=== PATIENT | male | born 1955 | race American Indian/Alaskan Native ===

== ENCOUNTER 2016-08-26 09:13 | Emergency (ER) | payer BC, OTHER ==
--- NOTE | 2016-08-26 09:44 | EDM.PDOC ---
ED HISTORY OF PRESENT ILLNESS - General Chief Complaint: Chest Pain Stated Complaint: IN BY [facility] Time Seen by Provider: 08/26/16 09:25 Source of Information: Reports: Patient History Limitations: Reports: No limitations - History of Present Illness INITIAL COMMENTS - FREE TEXT/NARRATIVE: This 61 yo male patient reports to the ED with chest pain, shortness of breath and upper epigastric pain. The patient reports his symptoms started yesterday evening and have been getting worse since last night. The patient reports his pain is in the lower chest, upper abdomen with a "stabbing" pain radiating to his back. The patient reports he took a Pride while at home and was given Aspirin and Nitro by EMS. The patient reports his symptoms are similar to his symptoms 3 months ago. Since his visit in May, the patient has followed up with a surgeon (the surgeon reported that his pain was not his gallbladder) and with a hand sample maker (the hand sample maker reported that there was nothing wrong with his heart). The patient has been taking his medications as prescribed. The patient reports his abdominal pain started after eating fried chicken on Friday. Symptom Onset Date: 08/24/16 Timing/Duration: Reports: Constant, Getting worse Severity: moderate Location, General: Reports: chest, abdomen Quality: Reports: Ache, Dull Improves with: Reports: None Worsens with: Reports: None Treatments PORTABLE TRACKMAN: Reports: Other medication(s) - Related Data Allergies/ADRs: Allergies Allergy/AdvReac Type Severity Reaction Status Date / Time No Known Allergies Allergy Verified 04/08/16 21:24 Home Meds: Home Meds Docusate Sodium 100 mg PO BID PRN 12/20/13 [History] Hydrocodone/Acetaminophen [Hydrocodone-Acetaminophen 5-325] 1 tab PO TID PRN 03/25 [History] Insulin Aspart [Novolog Flexpen] 15 units SQ TIDAC 12/20/13 [History] Insulin Detemir [Levemir Flexpen] 50 units SQ QAM 12/20/13 [History] Insulin Detemir [Levemir Flexpen] 50 unit SQ BEDTIME 01/19/14 [History] Lisinopril 10 mg PO DAILY 01/19/14 [History] Simvastatin [Zocor] 20 mg PO BEDTIME 01/19/14 [History] Aspirin [Children's Aspirin] 81 mg PO DAILY 05/15/16 [History] Clopidogrel Bisulfate [Plavix] 75 mg PO DAILY 05/15/16 [History] Ergocalciferol (Vitamin D2) [Vitamin D2] 50,000 unit PO .SAT 05/15/16 [History] Ezetimibe [Zetia] 10 mg PO DAILY 05/15/16 [History] Fenofibric Acid (Choline) [Fenofibric Acid] 45 mg PO DAILY 05/15/16 [History] Furosemide 40 mg PO DAILY 05/15/16 [History] Gabapentin [Neurontin] 1,200 mg PO BEDTIME 05/15/16 [History] Gabapentin [Neurontin] 600 mg PO DAILY 05/15/16 [History] Hydrochlorothiazide 25 mg PO DAILY 05/15/16 [History] Isosorbide Mononitrate [Isosorbide Mononitrate ER] 60 mg PO BID 05/15/16 [ History] LORazepam 0.5 - 1 mg PO QID PRN 05/15/16 [History] Loratadine 10 mg PO DAILY 05/15/16 [History] Losartan [Cozaar] 100 mg PO DAILY 05/15/16 [History] Metoprolol Succinate [Toprol XL] 100 mg PO BID 05/15/16 [History] Nitroglycerin [Nitrostat] 0.4 mg SL Q5M PRN 05/15/16 [History] Terazosin HCl [Terazosin] 5 mg PO DAILY 05/15/16 [History] Zolpidem [Ambien] 10 mg PO BEDTIME PRN 05/15/16 [History] atorvaSTATin Calcium [Atorvastatin Calcium] 40 mg PO BEDTIME 05/15/16 [History] Past Medical History HEENT History: Reports: Impaired vision Other HEENT History: WEARS CORRECTIVE LENSES; UPPER AND LOWER DENTURE PLATE Cardiovascular History: Reports: CAD, Heart Failure, High cholesterol, Hypertension, Stents Respiratory History: Reports: None Gastrointestinal History: Reports: Chronic constipation, Colon polyp, Gastritis , GERD, Other (see below) Other Gastrointestinal History: gall stones Genitourinary History: Reports: BPH Musculoskeletal History: Reports: Fracture Other Musculoskeletal History: missing tip of pinkie on left hand Neurological History: Reports: Headaches, chronic Psychiatric History: Reports: None Endocrine/Metabolic History: Reports: Diabetes, type II Hematologic History: Reports: None Immunologic History: Reports: None Oncologic (Cancer) History: Reports: None Dermatologic History: Reports: None - Infectious Disease History Infectious Disease History: Reports: Measles - Past Surgical History Head Surgeries/Procedures: Reports: None HEENT Surgical History: Reports: None Cardiovascular Surgical History: Reports: None, Coronary artery stent Respiratory Surgical History: Reports: None GI Surgical History: Reports: Colonoscopy, EGD Male Surgical History: Reports: None Endocrine Surgical History: Reports: None Neurological Surgical History: Reports: None Musculoskeletal Surgical History: Reports: None Other Musculoskeletal Surgeries/Procedures:: LEFT ANKLE SURGERY Oncologic Surgical History: Reports: None Dermatological Surgical History: Reports: None Social & Family History - Family History Family Medical History: Noncontributory : Reports: Renal disease/insufficiency Neurological: Reports: TIA Endocrine/Metabolic: Reports: Diabetes, type II - Tobacco Use Smoking Status *Q: Former Smoker Years of Tobacco use: 20 Packs/Tins Daily: 1 Used Tobacco, but Quit: No Second Hand Smoke Exposure: No - Caffeine Use Caffeine Use: Reports: Coffee - Alcohol Use Days Per Week of Alcohol Use: 1 Number of Drinks Per Day: 5 Total Drinks Per Week: 5 - Recreational Drug Use Recreational Drug Use: No Drug Use in Last 12 Months: No - Living Situation & Occupation Living situation: Reports: with family, Occupation: employed ED ROS GENERAL - Review of Systems Review Of Systems: ROS reveals no pertinent complaints other than HPI. ED EXAM, GENERAL - Physical Exam Exam: See Below Exam Limited By: Uncooperative General Appearance: alert, moderate distress Eye Exam: bilateral eye: EOMI, normal inspection, PERRL Ears: normal external exam, normal canal, hearing grossly normal, normal TMs Nose: normal inspection, normal mucosa, no blood Throat/Mouth: Normal inspection, Normal lips, Normal teeth, Normal gums, Normal oropharynx, Normal voice, No airway compromise Head: atraumatic, normocephalic Neck: normal inspection, supple, non-tender, full range of motion Respiratory/Chest: no respiratory distress, lungs clear, normal breath sounds, no accessory muscle use, chest non-tender Cardiovascular: normal peripheral pulses, regular rate, rhythm, no edema, no gallop, no JVD, no murmur, no rub GI/Abdominal: normal bowel sounds, no organomegaly, no distention, no abnormal bruit, no mass, tender (RUQ) (Male) Exam: Deferred Rectal (Males) Exam: Deferred Back Exam: normal inspection, full range of motion, NT Extremities: normal inspection, normal range of motion, non-tender, normal capillary refill, no pedal edema Neurological: alert, oriented, CN II-XII intact, normal cognition, normal gait, normal reflexes, no motor/sensory deficits Psychiatric: normal affect, normal mood Skin Exam: Warm, Dry, Intact, Normal color, No rash Lymphatic: no adenopathy Course - Vital Signs Last Recorded V/S: Last Vital Signs Temp 36.6 C 08/26/16 09:15 Pulse 65 08/26/16 09:50 Resp 18 08/26/16 09:50 BP 169/70 H 08/26/16 09:50 Pulse Ox 100 08/26/16 09:50 - Orders/Labs/Meds Orders: Active Orders 24 hr Category Date Time Status EKG Documentation Completion [RC] URGENT Care 08/26/16 09:18 Active Chest 1V Frontal [CR] Urgent Exams 08/26/16 09:18 Taken Labs: Laboratory Tests 08/26/16 08/26/16 08/26/16 Range/Units 09:24 09:24 09:24 WBC 10.1 H (5.0-10.0) 10^3/uL RBC 4.20 L (4.6-6.2) 10^6/uL Hgb 11.2 L (14.0-18.0) g/dL Hct 33.9 L (40.0-54.0) % MCV 80.7 (80-100) fL MCH 26.7 L (27.0-34.0) pg MCHC 33.0 (33.0-35.0) g/dL Plt Count 171 (150-450) 10^3/uL Neut % (Auto) 81.6 H (42.2-75.2) % Lymph % (Auto) 11.7 L (20.5-50.1) % [place] % (Auto) 5.0 (2-8) % Eos % (Auto) 1.4 (1.0-3.0) % Baso % (Auto) 0.3 (0.0-1.0) % Sodium 139 (135-145) mmol/L Potassium 4.0 (3.6-5.0) mmol/L Chloride 110 (101-111) mmol/L Carbon Dioxide 20.0 L (21.0-31.0) mmol/L Anion Gap 13.0 BUN 28 H (7-18) mg/dL Creatinine 2.1 H (0.6-1.3) mg/dL Est Cr Clr Drug Dosing 39.34 mL/min Estimated GFR (MDRD) 32 BUN/Creatinine Ratio 13.33 Glucose 154 H (74-105) mg/dL Calcium 8.7 (8.4-10.2) mg/dl Total Bilirubin 0.7 (0.2-1.0) mg/dL AST 15 (10-42) IU/L ALT 12 (10-60) IU/L Alkaline Phosphatase 66 (42-121) IU/L Troponin I 0.23 H* (0.00-0.02) ng/ml B-Natriuretic Peptide 547 H (0-100) pg/ml Total Protein 5.9 L (6.7-8.2) g/dl Albumin 2.7 L (3.2-5.5) g/dl Globulin 3.2 Albumin/Globulin Ratio 0.84 Urine Color (YELLOW) Urine Appearance (CLEAR) Urine pH (5.0-9.0) Ur Specific [place] (1.005-1.030) Urine Protein (NEGATIVE) Urine Glucose (UA) (NEGATIVE) Urine Ketones (NEGATIVE) Urine Occult Blood (NEGATIVE) Urine Nitrite (NEGATIVE) Urine Bilirubin (NEGATIVE) Urine Urobilinogen (0.2-1.0) mg/dL Ur Leukocyte Esterase (NEGATIVE) Urine RBC /HPF Urine WBC (0-5/HPF) /HPF Ur Epithelial Cells /HPF Urine Opiates Screen (NEGATIVE) Ur Oxycodone Screen (NEGATIVE) Urine Methadone Screen (NEGATIVE) Ur Barbiturates Screen (NEGATIVE) U Tricyclic Antidepress (NEGATIVE) Ur Phencyclidine Scrn (NEGATIVE) Ur Amphetamine Screen (NEGATIVE) U Methamphetamines Scrn (NEGATIVE) Urine MDMA Screen (NEGATIVE) U Benzodiazepines Scrn (NEGATIVE) Urine Cocaine Screen (NEGATIVE) U Marijuana (THC) Screen (NEGATIVE) 08/26/16 08/26/16 Range/Units 09:37 09:37 WBC (5.0-10.0) 10^3/uL RBC (4.6-6.2) 10^6/uL Hgb (14.0-18.0) g/dL Hct (40.0-54.0) % MCV (80-100) fL MCH (27.0-34.0) pg MCHC (33.0-35.0) g/dL Plt Count (150-450) 10^3/uL Neut % (Auto) (42.2-75.2) % Lymph % (Auto) (20.5-50.1) % [place] % (Auto) (2-8) % Eos % (Auto) (1.0-3.0) % Baso % (Auto) (0.0-1.0) % Sodium (135-145) mmol/L Potassium (3.6-5.0) mmol/L Chloride (101-111) mmol/L Carbon Dioxide (21.0-31.0) mmol/L Anion Gap BUN (7-18) mg/dL Creatinine (0.6-1.3) mg/dL Est Cr Clr Drug Dosing mL/min Estimated GFR (MDRD) BUN/Creatinine Ratio Glucose (74-105) mg/dL Calcium (8.4-10.2) mg/dl Total Bilirubin (0.2-1.0) mg/dL AST (10-42) IU/L ALT (10-60) IU/L Alkaline Phosphatase (42-121) IU/L Troponin I (0.00-0.02) ng/ml B-Natriuretic Peptide (0-100) pg/ml Total Protein (6.7-8.2) g/dl Albumin (3.2-5.5) g/dl Globulin Albumin/Globulin Ratio Urine Color Yellow (YELLOW) Urine Appearance Slightly cloudy (CLEAR) Urine pH 7.0 (5.0-9.0) Ur Specific [place] 1.020 (1.005-1.030) Urine Protein >=300 H (NEGATIVE) Urine Glucose (UA) 100 H (NEGATIVE) Urine Ketones Negative (NEGATIVE) Urine Occult Blood Moderate H (NEGATIVE) Urine Nitrite Negative (NEGATIVE) Urine Bilirubin Negative (NEGATIVE) Urine Urobilinogen 0.2 (0.2-1.0) mg/dL Ur Leukocyte Esterase Negative (NEGATIVE) Urine RBC 0-5 /HPF Urine WBC 0-5 (0-5/HPF) /HPF Ur Epithelial Cells Rare /HPF Urine Opiates Screen Positive H (NEGATIVE) Ur Oxycodone Screen Negative (NEGATIVE) Urine Methadone Screen Negative (NEGATIVE) Ur Barbiturates Screen Negative (NEGATIVE) U Tricyclic Antidepress Negative (NEGATIVE) Ur Phencyclidine Scrn Negative (NEGATIVE) Ur Amphetamine Screen Negative (NEGATIVE) U Methamphetamines Scrn Negative (NEGATIVE) Urine MDMA Screen Negative (NEGATIVE) U Benzodiazepines Scrn Positive H (NEGATIVE) Urine Cocaine Screen Negative (NEGATIVE) U Marijuana (THC) Screen Negative (NEGATIVE) Meds: Medications Discontinued Medications Generic Name Dose Route Start Last Admin Trade Name Freq PRN Reason Stop Dose Admin Hydromorphone HCl 1 mg 08/26/16 10:02 08/26/16 10:07 Dilaudid IVPUSH 08/26/16 10:03 1 mg ONETIME ONE Administration Departure - Departure Time of Disposition: 10:11 Disposition: DC/Tfer to Acute Hospital 02 Reason for Transfer *Q: Other Condition: serious Clinical Impression: NSTEMI (non-ST elevated myocardial infarction) Forms: ED Department Discharge, Interfacility Transfer EMTALA Care Plan Goals: Discussed the examination, history, EKG and lab results with Dr. Ac ( Hospitalist with [facility] in [place]). Dr. Ac accepted the patient for continued evaluation and management. The patient will be transported by [facility]. - My Orders Last 24 Hours: My Active Orders 08/26/16 09:18 EKG Documentation Completion [RC] URGENT Chest 1V Frontal [CR] Urgent - Assessment/Plan Last 24 Hours: My Active Orders 08/26/16 09:18 EKG Documentation Completion [RC] URGENT Chest 1V Frontal [CR] Urgent
[2016-08-26] MEDS ORDERED: HYDROmorphone 1 MG/ML Syringe IVPUSH ONE (10:02)
--- NOTE | 2016-08-26 10:44 | CR ---
CLINICAL HISTORY: 61-year-old male with chest pain. INTERPRETATION: Chronically large heart but without new evidence of cephalization, alveolar edema or dependent effusion. No lung mass, hilar lymphadenopathy or focal lobar pneumonia. No atelectasis or collapse. CONCLUSION: No acute new cardiopulmonary abnormality since 08 April 2016 exam.
[2016-08-26 10:45] VITALS: BP 171/71
--- NOTE | 2016-08-27 13:04 | EKG ---
08/26/2016 - ADAMA QUINTANILLA - EKG per my reading shows sinus rhythm at a rate of 71 with left bundle-branch block. [facility] /[id number]
== END 2016-08-26 10:36 ==
LOC: DL.ED 09:13
DX: I21.4 Non-ST elevation (NSTEMI) myocardial infarction (principal); I25.10 Atherosclerotic heart disease of native coronary artery without angina pectoris; I11.0 Hypertensive heart disease with heart failure; E78.00 Pure hypercholesterolemia, unspecified; K21.9 Gastro-esophageal reflux disease without esophagitis; E11.9 Type 2 diabetes mellitus without complications; Z98.890 Other specified postprocedural states; Z87.891 Personal history of nicotine dependence; Z79.4 Long term (current) use of insulin; Z79.82 Long term (current) use of aspirin; Z79.899 Other long term (current) drug therapy
CPT/HCPCS: 36415; 71010; 80053; 80305; 81001; 83880; 84484; 85025; 93005; 96374; 99285; J1170

== ENCOUNTER 2016-10-05 11:11 | Emergency (ER) | payer BC, OTHER ==
[2016-10-05] MEDS ORDERED: Morphine 4 MG/ML Syringe IVPUSH ONE ×2 (12:18→13:37)
[2016-10-05] MEDS ORDERED: Ondansetron 4 MG/2 ML SDV IV ONE (12:18)
[2016-10-05] MEDS ORDERED: Sodium Chloride 0.9% 1,000 ML IV SCH (12:30)
[2016-10-05 12:53] LABS: CHLORIDE,CL 109 mmol/L (101-111); SODIUM,NA 138 mmol/L (135-145)
--- NOTE | 2016-10-05 13:31 | EDM.PDOC ---
ED HPI GENERAL MEDICAL PROBLEM - General Chief Complaint: Abdominal Pain Stated Complaint: ABD PAIN, HARD TO BREATH, [id number] Time Seen by Provider: 10/05/16 12:00 Source of Information: Reports: Patient History Limitations: Reports: No Limitations - History of Present Illness INITIAL COMMENTS - FREE TEXT/NARRATIVE: Pt has had midepigastric.left upper quad pain for approx 12 hours. he has a h/o gallstones, but notes not recent acid reflux. no n/v. has had constipation, last bm last night, small amount formed stool. no blood in stool or urine. no new shortness of breath. Upper Abdomen Pain Score (Numeric/FACES): 8 - Related Data Allergies Allergy/AdvReac Type Severity Reaction Status Date / Time No Known Allergies Allergy Verified 10/05/16 12:39 Home Meds: Home Meds Docusate Sodium 100 mg PO BID PRN 12/20/13 [History] Hydrocodone/Acetaminophen [Hydrocodone-Acetaminophen 5-325] 1 tab PO TID PRN 03/25 [History] Insulin Aspart [Novolog Flexpen] 15 units SQ TIDAC 12/20/13 [History] Insulin Detemir [Levemir Flexpen] 50 units SQ QAM 12/20/13 [History] Insulin Detemir [Levemir Flexpen] 50 unit SQ BEDTIME 01/19/14 [History] Lisinopril 10 mg PO DAILY 01/19/14 [History] Simvastatin [Zocor] 20 mg PO BEDTIME 01/19/14 [History] Aspirin [Children's Aspirin] 81 mg PO DAILY 05/15/16 [History] Clopidogrel Bisulfate [Plavix] 75 mg PO DAILY 05/15/16 [History] Ergocalciferol (Vitamin D2) [Vitamin D2] 50,000 unit PO .SAT 05/15/16 [History] Ezetimibe [Zetia] 10 mg PO DAILY 05/15/16 [History] Fenofibric Acid (Choline) [Fenofibric Acid] 45 mg PO DAILY 05/15/16 [History] Furosemide 40 mg PO DAILY 05/15/16 [History] Gabapentin [Neurontin] 1,200 mg PO BEDTIME 05/15/16 [History] Gabapentin [Neurontin] 600 mg PO DAILY 05/15/16 [History] Hydrochlorothiazide 25 mg PO DAILY 05/15/16 [History] Isosorbide Mononitrate [Isosorbide Mononitrate ER] 60 mg PO BID 05/15/16 [ History] LORazepam 0.5 - 1 mg PO QID PRN 05/15/16 [History] Loratadine 10 mg PO DAILY 05/15/16 [History] Losartan [Cozaar] 100 mg PO DAILY 05/15/16 [History] Metoprolol Succinate [Toprol XL] 100 mg PO BID 05/15/16 [History] Nitroglycerin [Nitrostat] 0.4 mg SL Q5M PRN 05/15/16 [History] Terazosin HCl [Terazosin] 5 mg PO DAILY 05/15/16 [History] Zolpidem [Ambien] 10 mg PO BEDTIME PRN 05/15/16 [History] atorvaSTATin Calcium [Atorvastatin Calcium] 40 mg PO BEDTIME 05/15/16 [History] Past Medical History HEENT History: Reports: Impaired Vision Other HEENT History: WEARS CORRECTIVE LENSES; UPPER AND LOWER DENTURE PLATE Cardiovascular History: Reports: CAD, Heart Failure, High Cholesterol, Hypertension, Stents Respiratory History: Reports: None Gastrointestinal History: Reports: Chronic Constipation, Colon Polyp, Gastritis , GERD Other Gastrointestinal History: gall stones Genitourinary History: Reports: BPH, Chronic Renal Insuffiency Musculoskeletal History: Reports: Fracture Other Musculoskeletal History: missing tip of pinkie on left hand Neurological History: Reports: Headaches, Chronic Psychiatric History: Reports: None Endocrine/Metabolic History: Reports: Diabetes, Type II Hematologic History: Reports: None Immunologic History: Reports: None Oncologic (Cancer) History: Reports: None Dermatologic History: Reports: None - Infectious Disease History Infectious Disease History: Reports: Measles - Past Surgical History Head Surgeries/Procedures: Reports: None Cardiovascular Surgical History: Reports: None, Coronary Artery Stent Respiratory Surgical History: Reports: None Male Surgical History: Reports: None Musculoskeletal Surgical History: Reports: None Other Musculoskeletal Surgeries/Procedures:: LEFT ANKLE SURGERY Oncologic Surgical History: Reports: None Dermatological Surgical History: Reports: None Social & Family History - Family History Family Medical History: Noncontributory : Reports: Renal Disease/Insufficiency Neurological: Reports: TIA Endocrine/Metabolic: Reports: Diabetes, type II - Tobacco Use Smoking Status *Q: Former Smoker Years of Tobacco use: 20 Packs/Tins Daily: 1 Used Tobacco, but Quit: No Second Hand Smoke Exposure: No - Caffeine Use Caffeine Use: Reports: Coffee - Alcohol Use Days Per Week of Alcohol Use: 1 Number of Drinks Per Day: 5 Total Drinks Per Week: 5 - Recreational Drug Use Recreational Drug Use: No Drug Use in Last 12 Months: No - Living Situation & Occupation Living situation: Reports: with Family, Occupation: Employed ED ROS GENERAL - Review of Systems Review Of Systems: See Below Constitutional: Reports: No Symptoms HEENT: Reports: No Symptoms Respiratory: Reports: No Symptoms Cardiovascular: Reports: No Symptoms Endocrine: Reports: No Symptoms GI/Abdominal: Reports: Other : Reports: Other (pt has had left upper quad and midepigastic pain today. he has had constipation.) Musculoskeletal: Reports: No Symptoms Skin: Reports: No Symptoms Neurological: Reports: No Symptoms Psychiatric: Reports: No Symptoms Hematologic/Lymphatic: Reports: No Symptoms Immunologic: Reports: No Symptoms ED EXAM, DIZZINESS - Physical Exam Exam: See Below Exam Limited By: No Limitations General Appearance: Mild Distress, Severe Distress Ears: Normal External Exam, Normal Canal, Normal TMs Nose: Normal Inspection, Normal Mucosa Throat/Mouth: Normal Inspection, Normal Lips, Normal Teeth, Normal Gums, Normal Oropharynx, No Airway Compromise Head Exam: Atraumatic, Normocephalic Neck: Normal Inspection, Supple, Non-Tender Respiratory/Chest: No Respiratory Distress, Lungs Clear, Normal Breath Sounds Cardiovascular: Normal Peripheral Pulses, Regular Rate, Rhythm GI/Abdominal: Other (subjective left upper quad pain, no rebound or tenderness to palpation.) Neurological: Alert Back Exam: Normal Inspection Extremities: Normal Inspection, No Pedal Edema Psychiatric: Normal Affect Skin Exam: Warm, Dry, Intact, Normal Color, No Rash Course - Vital Signs Text/Narrative:: ultrasound of gallbladder showed mobile gallstones, gallbladder wall 3.9mm and common ile duct emasures 4.[address] Malone, surgery secondary social studies teacher [employer] [employer] in [place]. He believes pt can be scheduled for surgery follow through pcp. Advised to have pt est appt with pcp get appropriate referrals and get sent to surgeon for eval. Pt can see Dr. Malone or any surgeon of his choice. Advise bland diet. Pt wanted something more for pain, he has norco 5/325 at home. D/C norco, percocet 5/325 one or two pills every 6 hours prn, #20, no refills. Last Recorded V/S: Last Vital Signs Temp 37.1 C 10/05/16 15:39 Pulse 68 10/05/16 15:39 Resp 18 10/05/16 15:39 BP 198/72 H 10/05/16 15:39 Pulse Ox 100 10/05/16 15:39 - Orders/Labs/Meds Labs: Laboratory Tests 10/05/16 10/05/16 10/05/16 Range/Units 12:24 12:24 13:07 WBC 10.2 H (5.0-10.0) 10^3/uL RBC 4.16 L (4.6-6.2) 10^6/uL Hgb 11.0 L (14.0-18.0) g/dL Hct 33.9 L (40.0-54.0) % MCV 81.5 (80-100) fL MCH 26.4 L (27.0-34.0) pg MCHC 32.4 L (33.0-35.0) g/dL Plt Count 166 (150-450) 10^3/uL Neut % (Auto) 78.1 H (42.2-75.2) % Lymph % (Auto) 14.9 L (20.5-50.1) % [place] % (Auto) 4.2 (2-8) % Eos % (Auto) 2.4 (1.0-3.0) % Baso % (Auto) 0.4 (0.0-1.0) % Sodium 138 (135-145) mmol/L Potassium 4.7 (3.6-5.0) mmol/L Chloride 109 (101-111) mmol/L Carbon Dioxide 22.0 (21.0-31.0) mmol/L Anion Gap 11.7 BUN 40 H (7-18) mg/dL Creatinine 2.1 H (0.6-1.3) mg/dL Est Cr Clr Drug Dosing TNP Estimated GFR (MDRD) 32 BUN/Creatinine Ratio 19.04 Glucose 155 H (74-105) mg/dL Calcium 8.6 (8.4-10.2) mg/dl Total Bilirubin 0.9 (0.2-1.0) mg/dL AST 23 (10-42) IU/L ALT 21 (10-60) IU/L Alkaline Phosphatase 60 (42-121) IU/L Total Protein 5.5 L (6.7-8.2) g/dl Albumin 2.6 L (3.2-5.5) g/dl Globulin 2.9 Albumin/Globulin Ratio 0.90 Amylase 57 (28-100) U/L Lipase 20 L (22-51) U/L Urine Color Yellow (YELLOW) Urine Appearance Clear (CLEAR) Urine pH 8.5 (5.0-9.0) Ur Specific [place] 1.020 (1.005-1.030) Urine Protein >=300 H (NEGATIVE) Urine Glucose (UA) 100 H (NEGATIVE) Urine Ketones Negative (NEGATIVE) Urine Occult Blood Small H (NEGATIVE) Urine Nitrite Negative (NEGATIVE) Urine Bilirubin Negative (NEGATIVE) Urine Urobilinogen 0.2 (0.2-1.0) mg/dL Ur Leukocyte Esterase Negative (NEGATIVE) Urine RBC 10-20 H /HPF Urine WBC 0-5 (0-5/HPF) /HPF Ur Epithelial Cells Few /HPF Amorphous Sediment Moderate (0/HPF) /HPF Urine Bacteria Moderate H (0-FEW/HPF) /HPF Hyaline Casts Few H /LPF Urine Mucus Few H /LPF Meds: Medications Discontinued Medications Generic Name Dose Route Start Last Admin Trade Name Freq PRN Reason Stop Dose Admin Sodium Chloride 1,000 mls @ 125 mls/hr 10/05/16 12:30 10/05/16 12:30 Normal Saline IV 125 mls/hr ASDIRECTED ELVI Administration Morphine Sulfate 4 mg 10/05/16 12:18 10/05/16 12:28 Morphine IVPUSH 10/05/16 12:19 4 mg ONETIME ONE Administration Morphine Sulfate 4 mg 10/05/16 13:37 10/05/16 13:40 Morphine IVPUSH 10/05/16 13:38 4 mg ONETIME ONE Administration Ondansetron HCl 4 mg 10/05/16 12:18 10/05/16 12:28 Zofran IV 10/05/16 12:19 4 mg ONETIME ONE Administration Departure - Departure Time of Disposition: 15:22 Disposition: Home, Self-Care 01 Condition: good Clinical Impression: Gallstones, Constipation - Discharge Information Instructions: Constipation, Adult, [id number], Pain Medicine Instructions, [id number] Referrals: Nathanael Harvey MD [Primary Care Provider] - Forms: ED Department Discharge Additional Instructions: You may try the new pain medication, but must not use your prior pain medication also. Try Lactulose as directed for constipation. You may consider adding over the counter Fleets enema or stool softener rectal suppositories. Your ultrasound today noted gallstones and gallbladder wall thickening. Discussed with Dr. Malone the surgeon secondary social studies teacher at [employer] in [place]. He recommends you see your primary care provider and get a referral to a surgeon to discuss your gallbladder, gallstones and ongoing discomfort. You may choose any surgeon, but Dr. Malone noted his office would be happy to see you. Avoid spicy foods, greasy foods, alcohol, tobacco and nicotine.
[2016-10-05 15:39] VITALS: BP 198/72
== END 2016-10-05 15:42 | disposition home or self-care (01) ==
LOC: DL.ED 11:11
DX: K80.80 Other cholelithiasis without obstruction (principal); K59.00 Constipation, unspecified; I25.10 Atherosclerotic heart disease of native coronary artery without angina pectoris; N18.9 Chronic kidney disease, unspecified; I13.0 Hypertensive heart and chronic kidney disease with heart failure and stage 1 through stage 4 chronic kidney disease, or unspecified chronic kidney disease; I50.9 Heart failure, unspecified; E78.00 Pure hypercholesterolemia, unspecified; E11.9 Type 2 diabetes mellitus without complications; Z79.899 Other long term (current) drug therapy; Z79.4 Long term (current) use of insulin; Z79.82 Long term (current) use of aspirin; Z87.891 Personal history of nicotine dependence
CPT/HCPCS: 36415; 74020; 76705; 80053; 81001; 82150; 83690; 85025; 96361; 96374; 96375; 96376; 99285; J2270; J2405; J7030

== ENCOUNTER 2016-12-23 12:11 | Emergency (ER) | payer BC, OTHER ==
--- NOTE | 2016-12-23 12:51 | CR ---
CLINICAL HISTORY: 61-year-old male with chest pain and shortness of breath. INTERPRETATION: Upright AP portable chest film abnormal. Asymmetric dense new pneumonic like consolidation right lower lobe (generally poor inspiratory effor t however and crowding with atelectasis a differential consideration since 26 August 2016 exam). Clin ical correlation? Normal cardiac silhouette without alveolar edema or dependent pleural effusion. No other lobar consolidation atelectasis or collapse. No pneumothorax. CONCLUSION: Abnormal new consolidation right lower lobe. See above.
[2016-12-23 13:19] VITALS: BP 152/72
[2016-12-23] MEDS ORDERED: Furosemide 40 MG/4 ML VIAL IVPUSH ONE (13:39)
--- NOTE | 2016-12-23 14:30 | EDM.PDOC ---
ED HPI GENERAL MEDICAL PROBLEM - General Chief Complaint: Respiratory Problem Stated Complaint: [id number] HARD TIME BREATHING Time Seen by Provider: 12/23/16 12:40 Source of Information: Reports: Patient History Limitations: Reports: No Limitations - History of Present Illness INITIAL COMMENTS - FREE TEXT/NARRATIVE: This 61 yo male patient reports to the ED with increased shortness of breath over the past 2 days. The patient reports he was short of breath, but did not get an appointment with his primary care provider. The patient reports he was supposed to be seeing his primary care provider this afternoon, but was advised to be seen in the ED. Onset: Gradual Duration: Day(s): (2), Constant, Getting Worse Location: Reports: Generalized Quality: Reports: Dull Severity: Moderate Improves with: Reports: None Worsens with: Reports: None Associated Symptoms: Reports: Shortness of Breath Mid-Sternal Chest Pain Score (Numeric/FACES): 7 - Related Data Allergies Allergy/AdvReac Type Severity Reaction Status Date / Time No Known Allergies Allergy Verified 10/05/16 12:39 Home Meds: Home Meds Docusate Sodium 100 mg PO BID PRN 12/20/13 [History] Hydrocodone/Acetaminophen [Hydrocodone-Acetaminophen 5-325] 1 tab PO TID PRN 03/25 [History] Insulin Aspart [Novolog Flexpen] 15 units SQ TIDAC 12/20/13 [History] Insulin Detemir [Levemir Flexpen] 50 units SQ QAM 12/20/13 [History] Insulin Detemir [Levemir Flexpen] 50 unit SQ BEDTIME 01/19/14 [History] Lisinopril 10 mg PO DAILY 01/19/14 [History] Simvastatin [Zocor] 20 mg PO BEDTIME 01/19/14 [History] Aspirin [Children's Aspirin] 81 mg PO DAILY 05/15/16 [History] Clopidogrel Bisulfate [Plavix] 75 mg PO DAILY 05/15/16 [History] Ergocalciferol (Vitamin D2) [Vitamin D2] 50,000 unit PO .SAT 05/15/16 [History] Ezetimibe [Zetia] 10 mg PO DAILY 05/15/16 [History] Fenofibric Acid (Choline) [Fenofibric Acid] 45 mg PO DAILY 05/15/16 [History] Furosemide 40 mg PO DAILY 05/15/16 [History] Gabapentin [Neurontin] 1,200 mg PO BEDTIME 05/15/16 [History] Gabapentin [Neurontin] 600 mg PO DAILY 05/15/16 [History] Hydrochlorothiazide 25 mg PO DAILY 05/15/16 [History] Isosorbide Mononitrate [Isosorbide Mononitrate ER] 60 mg PO BID 05/15/16 [ History] LORazepam 0.5 - 1 mg PO QID PRN 05/15/16 [History] Loratadine 10 mg PO DAILY 05/15/16 [History] Losartan [Cozaar] 100 mg PO DAILY 05/15/16 [History] Metoprolol Succinate [Toprol XL] 100 mg PO BID 05/15/16 [History] Nitroglycerin [Nitrostat] 0.4 mg SL Q5M PRN 05/15/16 [History] Terazosin HCl [Terazosin] 5 mg PO DAILY 05/15/16 [History] Zolpidem [Ambien] 10 mg PO BEDTIME PRN 05/15/16 [History] atorvaSTATin Calcium [Atorvastatin Calcium] 40 mg PO BEDTIME 05/15/16 [History] Past Medical History HEENT History: Reports: Impaired Vision Other HEENT History: WEARS CORRECTIVE LENSES; UPPER AND LOWER DENTURE PLATE Cardiovascular History: Reports: CAD, Heart Failure, High Cholesterol, Hypertension, Stents Respiratory History: Reports: None Gastrointestinal History: Reports: Chronic Constipation, Colon Polyp, Gastritis , GERD Other Gastrointestinal History: gall stones Genitourinary History: Reports: BPH, Chronic Renal Insuffiency Musculoskeletal History: Reports: Fracture Other Musculoskeletal History: missing tip of pinkie on left hand Neurological History: Reports: Headaches, Chronic Psychiatric History: Reports: None Endocrine/Metabolic History: Reports: Diabetes, Type II Hematologic History: Reports: None Immunologic History: Reports: None Oncologic (Cancer) History: Reports: None Dermatologic History: Reports: None - Infectious Disease History Infectious Disease History: Reports: Measles - Past Surgical History Head Surgeries/Procedures: Reports: None Cardiovascular Surgical History: Reports: None, Coronary Artery Stent Respiratory Surgical History: Reports: None Male Surgical History: Reports: None Musculoskeletal Surgical History: Reports: None Other Musculoskeletal Surgeries/Procedures:: LEFT ANKLE SURGERY Oncologic Surgical History: Reports: None Dermatological Surgical History: Reports: None Social & Family History - Family History Family Medical History: Noncontributory : Reports: Renal Disease/Insufficiency Neurological: Reports: TIA Endocrine/Metabolic: Reports: Diabetes, type II - Tobacco Use Smoking Status *Q: Never Smoker Years of Tobacco use: 20 Packs/Tins Daily: 1 Used Tobacco, but Quit: No Second Hand Smoke Exposure: No - Caffeine Use Caffeine Use: Reports: Coffee, Soda, Tea - Alcohol Use Days Per Week of Alcohol Use: 1 Number of Drinks Per Day: 5 Total Drinks Per Week: 5 - Recreational Drug Use Recreational Drug Use: No Drug Use in Last 12 Months: No - Living Situation & Occupation Living situation: Reports: with Family, Occupation: Employed ED ROS GENERAL - Review of Systems Review Of Systems: ROS reveals no pertinent complaints other than HPI. ED EXAM, GENERAL - Physical Exam Exam: See Below Exam Limited By: No Limitations General Appearance: Alert, WD/WN, Moderate Distress, Obese Eye Exam: Bilateral Eye: EOMI, Normal Inspection, PERRL Ears: Normal External Exam, Normal Canal, Hearing Grossly Normal, Normal TMs Nose: Normal Inspection, Normal Mucosa, No Blood Throat/Mouth: Normal Inspection, Normal Lips, Normal Teeth, Normal Gums, Normal Oropharynx, Normal Voice, No Airway Compromise Head: Atraumatic, Normocephalic Neck: Normal Inspection, Supple, Non-Tender, Full Range of Motion Respiratory/Chest: Rhonchi (fine rhonchi bilateral lower lobes) Cardiovascular: Normal Peripheral Pulses, Regular Rate, Rhythm, No Edema, No Gallop, No JVD, No Murmur, No Rub GI/Abdominal: Normal Bowel Sounds (Male) Exam: Deferred Rectal (Males) Exam: Deferred Back Exam: Normal Inspection, Full Range of Motion, NT Extremities: Pedal Edema Neurological: Alert, Oriented, CN II-XII Intact, Normal Cognition, Normal Gait, Normal Reflexes, No Motor/Sensory Deficits Psychiatric: Normal Affect, Normal Mood Skin Exam: Warm, Dry, Intact, Normal Color, No Rash Lymphatic: No Adenopathy Course - Vital Signs Last Recorded V/S: Last Vital Signs Temp 36.8 C 12/23/16 12:33 Pulse 61 12/23/16 12:33 Resp 20 12/23/16 13:17 BP 152/72 H 12/23/16 13:17 Pulse Ox 98 12/23/16 13:17 - Orders/Labs/Meds Orders: Active Orders 24 hr Category Date Time Status EKG Documentation Completion [RC] URGENT Care 12/23/16 12:31 Active Labs: Laboratory Tests 12/23/16 12/23/16 12/23/16 Range/Units 12:52 12:52 12:52 WBC 8.0 (5.0-10.0) 10^3/uL RBC 3.70 L (4.6-6.2) 10^6/uL Hgb 9.9 L (14.0-18.0) g/dL Hct 30.5 L (40.0-54.0) % MCV 82.4 (80-100) fL MCH 26.8 L (27.0-34.0) pg MCHC 32.5 L (33.0-35.0) g/dL Plt Count 143 L (150-450) 10^3/uL Neut % (Auto) 79.5 H (42.2-75.2) % Lymph % (Auto) 12.6 L (20.5-50.1) % Becker % (Auto) 6.4 (2-8) % Eos % (Auto) 1.4 (1.0-3.0) % Baso % (Auto) 0.1 (0.0-1.0) % Sodium 142 (135-145) mmol/L Potassium 3.7 (3.6-5.0) mmol/L Chloride 112 H (101-111) mmol/L Carbon Dioxide 22.0 (21.0-31.0) mmol/L Anion Gap 11.7 BUN 33 H (7-18) mg/dL Creatinine 3.3 H (0.6-1.3) mg/dL Est Cr Clr Drug Dosing 25.04 mL/min Estimated GFR (MDRD) 19 BUN/Creatinine Ratio 10.00 Glucose 66 L (74-105) mg/dL Calcium 8.2 L (8.4-10.2) mg/dl Total Bilirubin 0.9 (0.2-1.0) mg/dL AST 18 (10-42) IU/L ALT 14 (10-60) IU/L Alkaline Phosphatase 61 (42-121) IU/L Troponin I 0.04 H* (0.00-0.02) ng/ml B-Natriuretic Peptide 827 H (0-100) pg/ml Total Protein 5.7 L (6.7-8.2) g/dl Albumin 2.7 L (3.2-5.5) g/dl Globulin 3.0 Albumin/Globulin Ratio 0.90 Meds: Medications Discontinued Medications Generic Name Dose Route Start Last Admin Trade Name Ellen PRN Reason Stop Dose Admin Furosemide 40 mg 12/23/16 13:39 12/23/16 13:49 Lasix IVPUSH 12/23/16 13:40 40 mg NOW ONE Administration Departure - Departure Time of Disposition: 15:17 Disposition: Home, Self-Care 01 Condition: Fair Clinical Impression: Bronchitis Acute exacerbation of CHF (congestive heart failure) Qualifiers: Congestive heart failure type: unspecified congestive heart failure type Qualified Code(s): I50.9 - Heart failure, unspecified - Discharge Information Instructions: Heart Failure, [id number], Acute Bronchitis, [id number] Forms: ED Department Discharge Care Plan Goals: The patient was advised of the examination, lab and x-ray results during the visit. The patient was given an IV dose of Lasix while in the ED. The patient was advised to increase his home Lasix use to 40 mg 2 times per day for 2 days. The patient should follow-up with his primary care facility next week. The patient was discharged with a script for Levaquin (500 mg) to take 1 by mouth daily for 5 days. If the patient has any additional symptoms or concerns, the patient should follow-up with his primary care facility or return to the emergency department. - My Orders Last 24 Hours: My Active Orders 12/23/16 12:31 EKG Documentation Completion [RC] URGENT - Assessment/Plan Last 24 Hours: My Active Orders 12/23/16 12:31 EKG Documentation Completion [RC] URGENT
--- NOTE | 2016-12-25 02:10 | EKG ---
12/23/2016 - ADAMA QUINTANILLA - This 12-lead EKG shows a sinus bradycardia with a ventricular rate of 59. There is an interventricular conduction defect. LVH criteria. Left axis deviation. No acute ST-segment or T-wave changes. [facility] /[id number]
== END 2016-12-23 15:31 | disposition home or self-care (01) ==
LOC: DL.ED 12:11
DX: I13.0 Hypertensive heart and chronic kidney disease with heart failure and stage 1 through stage 4 chronic kidney disease, or unspecified chronic kidney disease (principal); E11.22 Type 2 diabetes mellitus with diabetic chronic kidney disease; I50.9 Heart failure, unspecified; N18.9 Chronic kidney disease, unspecified; J40 Bronchitis, not specified as acute or chronic; I25.10 Atherosclerotic heart disease of native coronary artery without angina pectoris; E78.00 Pure hypercholesterolemia, unspecified; Z95.5 Presence of coronary angioplasty implant and graft; Z98.890 Other specified postprocedural states; Z79.82 Long term (current) use of aspirin; Z79.4 Long term (current) use of insulin; Z79.84 Long term (current) use of oral hypoglycemic drugs; Z79.899 Other long term (current) drug therapy
CPT/HCPCS: 36415; 71010; 80053; 83880; 84484; 85025; 93005; 96374; 99285; J1940

== ENCOUNTER 2016-12-25 23:52 | Inpatient (IN) | payer OTHER, BC ==
[2016-12-26] MEDS ORDERED: Albuterol/Ipratropium 3.0-0.5 MG/3 ML Neb Soln NEB ONE (01:03)
[2016-12-26 01:13] LABS: CHLORIDE,CL 109 mmol/L (101-111); SODIUM,NA 139 mmol/L (135-145)
[2016-12-26] MEDS ORDERED: Furosemide 40 MG/4 ML VIAL IVPUSH ONE ×2 (01:21→10:04)
[2016-12-26] MEDS ORDERED: Aspirin 81 MG Tab.Chew PO ONE (01:23)
[2016-12-26] MEDS ORDERED: Diltiazem 25 MG/5 ML SDV IVPUSH ONE (01:52)
--- NOTE | 2016-12-26 02:15 | EDM.PDOC ---
ED HPI GENERAL MEDICAL PROBLEM - General Chief Complaint: Respiratory Problem Stated Complaint: NOT FEELING WELL, DIFFICULTY BREATHING Time Seen by Provider: 12/26/16 00:15 Source of Information: Reports: Patient, Family - History of Present Illness INITIAL COMMENTS - FREE TEXT/NARRATIVE: sick for one umberto, in ER on Friday, started on Levaquin, not improving, sleepy, no chest pain, coughing, non productive. Chest hurting with cough. Legs swollen at night when take off support hose. No fevers. Onset: Today Location: Reports: Chest Quality: Reports: Sharp (with cough) Severity: Moderate Improves with: Reports: None Associated Symptoms: Reports: Chest Pain, Cough, Shortness of Breath. Denies: cough w sputum, Fever/Chills Chest Pain Score (Numeric/FACES): 7 - Related Data Allergies Allergy/AdvReac Type Severity Reaction Status Date / Time No Known Allergies Allergy Verified 12/25/16 23:58 Home Meds: Home Meds Docusate Sodium 100 mg PO BID PRN 12/20/13 [History] Hydrocodone/Acetaminophen [Hydrocodone-Acetaminophen 5-325] 1 tab PO TID PRN 03/25 [History] Insulin Aspart [Novolog Flexpen] 15 units SQ TIDAC 12/20/13 [History] Insulin Detemir [Levemir Flexpen] 50 units SQ QAM 12/20/13 [History] Insulin Detemir [Levemir Flexpen] 50 unit SQ BEDTIME 01/19/14 [History] Lisinopril 10 mg PO DAILY 01/19/14 [History] Simvastatin [Zocor] 20 mg PO BEDTIME 01/19/14 [History] Aspirin [Children's Aspirin] 81 mg PO DAILY 05/15/16 [History] Clopidogrel Bisulfate [Plavix] 75 mg PO DAILY 05/15/16 [History] Ergocalciferol (Vitamin D2) [Vitamin D2] 50,000 unit PO .SAT 05/15/16 [History] Ezetimibe [Zetia] 10 mg PO DAILY 05/15/16 [History] Fenofibric Acid (Choline) [Fenofibric Acid] 45 mg PO DAILY 05/15/16 [History] Furosemide 40 mg PO DAILY 05/15/16 [History] Gabapentin [Neurontin] 1,200 mg PO BEDTIME 05/15/16 [History] Gabapentin [Neurontin] 600 mg PO DAILY 05/15/16 [History] Hydrochlorothiazide 25 mg PO DAILY 05/15/16 [History] Isosorbide Mononitrate [Isosorbide Mononitrate ER] 60 mg PO BID 05/15/16 [ History] LORazepam 0.5 - 1 mg PO QID PRN 05/15/16 [History] Loratadine 10 mg PO DAILY 05/15/16 [History] Losartan [Cozaar] 100 mg PO DAILY 05/15/16 [History] Metoprolol Succinate [Toprol XL] 100 mg PO BID 05/15/16 [History] Nitroglycerin [Nitrostat] 0.4 mg SL Q5M PRN 05/15/16 [History] Terazosin HCl [Terazosin] 5 mg PO DAILY 05/15/16 [History] Zolpidem [Ambien] 10 mg PO BEDTIME PRN 05/15/16 [History] atorvaSTATin Calcium [Atorvastatin Calcium] 40 mg PO BEDTIME 05/15/16 [History] Levofloxacin [Levaquin] 500 mg PO DAILY 12/26/16 [History] Past Medical History HEENT History: Reports: Impaired Vision Other HEENT History: WEARS CORRECTIVE LENSES; UPPER AND LOWER DENTURE PLATE Cardiovascular History: Reports: CAD, Heart Failure, High Cholesterol, Hypertension, Stents Respiratory History: Reports: Other (See Below) Other Respiratory History: recent bronchitis Gastrointestinal History: Reports: Chronic Constipation, Colon Polyp, Gastritis , GERD Other Gastrointestinal History: gall stones Genitourinary History: Reports: BPH, Chronic Renal Insuffiency Musculoskeletal History: Reports: Fracture Other Musculoskeletal History: missing tip of pinkie on left hand Neurological History: Reports: Headaches, Chronic Psychiatric History: Reports: None Endocrine/Metabolic History: Reports: Diabetes, Type II Hematologic History: Reports: None Immunologic History: Reports: None Oncologic (Cancer) History: Reports: None Dermatologic History: Reports: None - Infectious Disease History Infectious Disease History: Reports: Measles - Past Surgical History Head Surgeries/Procedures: Reports: None Cardiovascular Surgical History: Reports: None, Coronary Artery Stent Respiratory Surgical History: Reports: None Male Surgical History: Reports: None Musculoskeletal Surgical History: Reports: None Other Musculoskeletal Surgeries/Procedures:: LEFT ANKLE SURGERY Oncologic Surgical History: Reports: None Dermatological Surgical History: Reports: None Social & Family History - Family History Family Medical History: Noncontributory : Reports: Renal Disease/Insufficiency Neurological: Reports: TIA Endocrine/Metabolic: Reports: Diabetes, type II - Tobacco Use Smoking Status *Q: Never Smoker Years of Tobacco use: 20 Packs/Tins Daily: 1 Used Tobacco, but Quit: No Second Hand Smoke Exposure: No - Caffeine Use Caffeine Use: Reports: Coffee, Soda, Tea - Alcohol Use Days Per Week of Alcohol Use: 1 Number of Drinks Per Day: 5 Total Drinks Per Week: 5 - Recreational Drug Use Recreational Drug Use: No Drug Use in Last 12 Months: No - Living Situation & Occupation Living situation: Reports: with Family, Occupation: Employed ED ROS GENERAL - Review of Systems Review Of Systems: See Below Constitutional: Reports: No Symptoms, Malaise, Weakness, Decreased Appetite HEENT: Reports: No Symptoms, Throat Pain Respiratory: Reports: Shortness of Breath, Wheezing, Pleuritic Chest Pain, Cough. Denies: Sputum Cardiovascular: Reports: Blood Pressure Problem, Dyspnea on Exertion, Edema. Denies: Chest Pain GI/Abdominal: Reports: Decreased Appetite, Nausea : Reports: No Symptoms Musculoskeletal: Reports: No Symptoms Skin: Reports: No Symptoms Neurological: Reports: No Symptoms Psychiatric: Reports: No Symptoms ED EXAM, GENERAL - Physical Exam Exam: See Below Exam Limited By: No Limitations General Appearance: Alert, Moderate Distress Eye Exam: Bilateral Eye: EOMI Ears: Normal External Exam, Hearing Grossly Normal Nose: Normal Inspection Throat/Mouth: Normal Inspection, Normal Oropharynx Neck: Full Range of Motion. No: Lymphadenopathy (L), Lymphadenopathy (R) Respiratory/Chest: Respiratory Distress, Rhonchi, Wheezing Cardiovascular: Normal Peripheral Pulses, Regular Rate, Rhythm, Bradycardia GI/Abdominal: Normal Bowel Sounds, Soft, Non-Tender Extremities: Normal Inspection, Normal Range of Motion, Pedal Edema Neurological: Alert, Oriented, CN II-XII Intact, Normal Cognition, Normal Reflexes Psychiatric: Normal Affect, Normal Mood Skin Exam: Warm, Dry, Intact, Normal Color Course - Vital Signs Last Recorded V/S: Last Vital Signs Temp 98.1 F 12/26/16 03:24 Pulse 54 L 12/26/16 03:24 Resp 16 12/26/16 03:24 BP 157/62 H 12/26/16 03:24 Pulse Ox 100 12/26/16 03:24 - Orders/Labs/Meds Orders: Active Orders 24 hr Category Date Time Status RT Aerosol Therapy [RC] ASDIRECTED Care 12/26/16 01:03 Active CULTURE BLOOD [BC] Stat Lab 12/26/16 00:30 Received CULTURE BLOOD [] Stat Lab 12/26/16 00:35 Received CULTURE STREP A CONFIRMATION [] Stat Lab 12/26/16 00:07 Results STREP SCRN A RAPID W CULT CONF [] Stat Lab 12/26/16 00:07 Results Blood Culture x2 Reflex Set [OM.PC] Stat Oth 12/26/16 00:11 Ordered Medication Orders Hydrocodone Bitart/Acetaminophen ([place] 325-5 Mg) 1 tab PO TID PRN PRN Reason: Pain (moderate 4-6) Last Admin: 12/26/16 04:54 Dose: 1 tab Albuterol/Ipratropium (Duoneb 3.0-0.5 Mg/3 Ml) 3 ml NEB Q6HRRT [facility] Aspirin (Aspirin) 81 mg PO DAILY [facility] Atorvastatin Calcium (Lipitor) 40 mg PO BEDTIME [facility] Clopidogrel Bisulfate (Plavix) 75 mg PO DAILY [facility] Docusate Sodium (Colace) 100 mg PO BID PRN PRN Reason: Stool Softener Ezetimibe (Zetia) 10 mg PO DAILY [facility] Ergocalciferol (Vitamin D2) 50,000 units PO Q7D [facility] Gabapentin (Neurontin) 600 mg PO DAILY [facility] Gabapentin (Neurontin) 1,200 mg PO BEDTIME [facility] Heparin Sodium (Porcine) (Heparin Sodium) 5,000 units SUBCUT Q8H [facility] Last Admin: 12/26/16 04:53 Dose: 5,000 units Hydrochlorothiazide (Hydrochlorothiazide) 25 mg PO DAILY [facility] Piperacillin Sod/Tazobactam (Sod 2.25 gm/ Sodium Chloride) 50 mls @ 100 mls/hr IV Q6H [facility] Last Admin: 12/26/16 04:52 Dose: 100 mls/hr Insulin Aspart (Novolog) 0 unit SUBCUT TIDAC [facility] Insulin Aspart (Novolog) 0 unit SUBCUT QID [facility] PRN Reason: Protocol Insulin Detemir (Levemir) 0 unit SUBCUT BEDTIME [facility] Insulin Detemir (Levemir) 0 unit SUBCUT QAM [facility] Isosorbide Mononitrate (Imdur) 60 mg PO BID [facility] Loratadine (Claritin) 10 mg PO DAILY [facility]VI Lorazepam (Ativan) 0.5 mg PO QID PRN PRN Reason: Anxiety Metoprolol Succinate (Toprol Xl) 100 mg PO BID ELVI Nitroglycerin (Nitrostat) 0.4 mg SL Q5M PRN PRN Reason: Chest Pain Non-Formulary Medication (Fenofibric Acid (Choline) [Fenofibric Acid]) 45 mg PO DAILY ELVI Terazosin HCl (Hytrin) 5 mg PO DAILY [facility]VI Zolpidem Tartrate (Ambien) 10 mg PO BEDTIME PRN PRN Reason: Insomnia Labs: Laboratory Tests 12/26/16 12/26/16 12/26/16 Range/Units 00:30 00:30 00:30 WBC 4.8 L (5.0-10.0) 10^3/uL RBC 3.47 L (4.6-6.2) 10^6/uL Hgb 9.1 L (14.0-18.0) g/dL Hct 28.4 L (40.0-54.0) % MCV 81.8 (80-100) fL MCH 26.2 L (27.0-34.0) pg MCHC 32.0 L (33.0-35.0) g/dL Plt Count 152 (150-450) 10^3/uL Neut % (Auto) 59.0 (42.2-75.2) % Lymph % (Auto) 24.1 (20.5-50.1) % [place] % (Auto) 12.3 H (2-8) % Eos % (Auto) 4.4 H (1.0-3.0) % Baso % (Auto) 0.2 (0.0-1.0) % Sodium 139 (135-145) mmol/L Potassium 4.0 (3.6-5.0) mmol/L Chloride 109 (101-111) mmol/L Carbon Dioxide 22.0 (21.0-31.0) mmol/L Anion Gap 12.0 BUN 39 H (7-18) mg/dL Creatinine 3.2 H (0.6-1.3) mg/dL Est Cr Clr Drug Dosing TNP Estimated GFR (MDRD) 20 BUN/Creatinine Ratio 12.18 Glucose 108 H (74-105) mg/dL Lactic Acid 0.6 (0.5-2.2) mmol/L Calcium 8.2 L (8.4-10.2) mg/dl Total Bilirubin 0.7 (0.2-1.0) mg/dL AST 21 (10-42) IU/L ALT 16 (10-60) IU/L Alkaline Phosphatase 89 (42-121) IU/L Troponin I 0.04 H* (0.00-0.02) ng/ml B-Natriuretic Peptide 954 H (0-100) pg/ml Total Protein 5.8 L (6.7-8.2) g/dl Albumin 2.5 L (3.2-5.5) g/dl Globulin 3.3 Albumin/Globulin Ratio 0.76 Amylase 27 L (28-100) U/L Lipase 11 L (22-51) U/L Urine Color (YELLOW) Urine Appearance (CLEAR) Urine pH (5.0-9.0) Ur Specific [place] (1.005-1.030) Urine Protein (NEGATIVE) Urine Glucose (UA) (NEGATIVE) Urine Ketones (NEGATIVE) Urine Occult Blood (NEGATIVE) Urine Nitrite (NEGATIVE) Urine Bilirubin (NEGATIVE) Urine Urobilinogen (0.2-1.0) mg/dL Ur Leukocyte Esterase (NEGATIVE) Urine RBC /HPF Urine WBC (0-5/HPF) /HPF Ur Epithelial Cells /HPF Urine Bacteria (0-FEW/HPF) /HPF 12/26/16 Range/Units 00:55 WBC (5.0-10.0) 10^3/uL RBC (4.6-6.2) 10^6/uL Hgb (14.0-18.0) g/dL Hct (40.0-54.0) % MCV (80-100) fL MCH (27.0-34.0) pg MCHC (33.0-35.0) g/dL Plt Count (150-450) 10^3/uL Neut % (Auto) (42.2-75.2) % Lymph % (Auto) (20.5-50.1) % [place] % (Auto) (2-8) % Eos % (Auto) (1.0-3.0) % Baso % (Auto) (0.0-1.0) % Sodium (135-145) mmol/L Potassium (3.6-5.0) mmol/L Chloride (101-111) mmol/L Carbon Dioxide (21.0-31.0) mmol/L Anion Gap BUN (7-18) mg/dL Creatinine (0.6-1.3) mg/dL Est Cr Clr Drug Dosing Estimated GFR (MDRD) BUN/Creatinine Ratio Glucose (74-105) mg/dL Lactic Acid (0.5-2.2) mmol/L Calcium (8.4-10.2) mg/dl Total Bilirubin (0.2-1.0) mg/dL AST (10-42) IU/L ALT (10-60) IU/L Alkaline Phosphatase (42-121) IU/L Troponin I (0.00-0.02) ng/ml B-Natriuretic Peptide (0-100) pg/ml Total Protein (6.7-8.2) g/dl Albumin (3.2-5.5) g/dl Globulin Albumin/Globulin Ratio Amylase (28-100) U/L Lipase (22-51) U/L Urine Color Yellow (YELLOW) Urine Appearance Clear (CLEAR) Urine pH 7.0 (5.0-9.0) Ur Specific [place] 1.020 (1.005-1.030) Urine Protein >=300 H (NEGATIVE) Urine Glucose (UA) 100 H (NEGATIVE) Urine Ketones Negative (NEGATIVE) Urine Occult Blood Moderate H (NEGATIVE) Urine Nitrite Negative (NEGATIVE) Urine Bilirubin Negative (NEGATIVE) Urine Urobilinogen 0.2 (0.2-1.0) mg/dL Ur Leukocyte Esterase Negative (NEGATIVE) Urine RBC 0-5 /HPF Urine WBC 0-5 (0-5/HPF) /HPF Ur Epithelial Cells Occasional /HPF Urine Bacteria Few (0-FEW/HPF) /HPF Meds: Medications Generic Name Dose Route Start Last Admin Trade Name Freq PRN Reason Stop Dose Admin Hydrocodone Bitart/Acetaminophen 1 tab 12/26/16 03:48 12/26/16 04:54 [place] 325-5 Mg PO 1 tab TID PRN Administration Pain (moderate 4-6) Albuterol/Ipratropium 3 ml 12/26/16 07:00 Duoneb 3.0-0.5 Mg/3 Ml NEB Q6HRRT [facility] Aspirin 81 mg 12/26/16 09:00 Aspirin PO DAILY [facility] Atorvastatin Calcium 40 mg 12/26/16 21:00 Lipitor PO BEDTIME [facility] Clopidogrel Bisulfate 75 mg 12/26/16 09:00 Plavix PO DAILY [facility] Docusate Sodium 100 mg 12/26/16 03:48 Colace PO BID PRN Stool Softener Ezetimibe 10 mg 12/26/16 09:00 Zetia PO DAILY [facility] Ergocalciferol 50,000 units 12/28/16 09:00 Vitamin D2 PO Q7D [facility] Gabapentin 600 mg 12/26/16 09:00 Neurontin PO DAILY [facility] Gabapentin 1,200 mg 12/26/16 21:00 Neurontin PO BEDTIME [facility] Heparin Sodium (Porcine) 5,000 units 12/26/16 04:00 12/26/16 04:53 Heparin Sodium SUBCUT 5,000 units Q8H [facility] Administration Hydrochlorothiazide 25 mg 12/26/16 09:00 Hydrochlorothiazide PO DAILY [facility] Piperacillin Sod/Tazobactam 50 mls @ 100 mls/hr 12/26/16 04:00 12/26/16 04:52 Sod 2.25 gm/ Sodium Chloride IV 100 mls/hr Q6H [facility] Administration Insulin Aspart 0 unit 12/26/16 08:00 Novolog SUBCUT TIDAC [facility] Insulin Aspart 0 unit 12/26/16 09:00 Novolog SUBCUT QID [facility] Protocol Insulin Detemir 0 unit 12/26/16 21:00 Levemir SUBCUT BEDTIME [facility] Insulin Detemir 0 unit 12/26/16 09:00 Levemir SUBCUT QAM [facility] Isosorbide Mononitrate 60 mg 12/26/16 09:00 Imdur PO BID [facility] Loratadine 10 mg 12/26/16 09:00 Claritin PO DAILY [facility] Lorazepam 0.5 mg 12/26/16 03:48 Ativan PO QID PRN Anxiety Metoprolol Succinate 100 mg 12/26/16 09:00 Toprol Xl PO BID [facility] Nitroglycerin 0.4 mg 12/26/16 03:48 Nitrostat SL Q5M PRN Chest Pain Non-Formulary Medication 45 mg 12/26/16 09:00 Fenofibric Acid (Choline) [Fenofibric Acid] PO DAILY [facility] Terazosin HCl 5 mg 12/26/16 09:00 Hytrin PO DAILY [facility] Zolpidem Tartrate 10 mg 12/26/16 03:48 Ambien PO BEDTIME PRN Insomnia Discontinued Medications Generic Name Dose Route Start Last Admin Trade Name Ellen PRN Reason Stop Dose Admin Albuterol/Ipratropium 3 ml 12/26/16 01:03 12/26/16 01:09 Duoneb 3.0-0.5 Mg/3 Ml NEB 12/26/16 01:04 3 ml ONETIME ONE Administration Aspirin 324 mg 12/26/16 01:23 12/26/16 01:28 Aspirin PO 12/26/16 01:24 324 mg ONETIME ONE Administration Diltiazem HCl 5 mg 12/26/16 01:52 12/26/16 02:02 Diltiazem IVPUSH 12/26/16 01:53 5 mg ONETIME ONE Administration Enoxaparin Sodium 40 mg 12/26/16 09:00 Lovenox SUBCUT DAILY [facility]VI Furosemide 40 mg 12/26/16 01:21 12/26/16 01:37 Lasix IVPUSH 12/26/16 01:22 40 mg NOW ONE Administration Ondansetron HCl 4 mg 12/26/16 02:18 12/26/16 02:23 Zofran IV 12/26/16 02:19 4 mg ONETIME ONE Administration - Re-Assessments/Exams Free Text/Narrative Re-Assessment/Exam: 0250: Dr. Waters accepting of patient for further eval and management of Right lower lobe pneumonia, anemia and CHF. Departure - Departure Time of Disposition: 03:05 Disposition: Admitted As Inpatient 66 Condition: Fair Clinical Impression: CHF (congestive heart failure) Qualifiers: Congestive heart failure type: unspecified congestive heart failure type Congestive heart failure chronicity: unspecified congestive heart failure chronicity Qualified Code(s): I50.9 - Heart failure, unspecified Renal failure, unspecified Qualifiers: Renal failure chronicity: acute on chronic Acute renal failure type: unspecified Chronic kidney disease stage: unspecified stage Qualified Code(s): N17.9 - Acute kidney failure, unspecified; N18.9 - Chronic kidney disease, unspecified RLL pneumonia Qualifiers: Pneumonia type: due to unspecified organism Qualified Code(s): J18.1 - Lobar pneumonia, unspecified organism Anemia Qualifiers: Anemia type: unspecified type Qualified Code(s): D64.9 - Anemia, unspecified Hypertension Qualifiers: Hypertension type: essential hypertension Qualified Code(s): I10 - Essential ( primary) hypertension - Discharge Information - My Orders Last 24 Hours: My Active Orders 12/26/16 00:07 CULTURE STREP A CONFIRMATION [RM] Stat STREP SCRN A RAPID W CULT CONF [RM] Stat 12/26/16 00:11 Blood Culture x2 Reflex Set [OM.PC] Stat 12/26/16 00:30 CULTURE BLOOD [BC] Stat 12/26/16 00:35 CULTURE BLOOD [BC] Stat 12/26/16 01:03 RT Aerosol Therapy [RC] ASDIRECTED - Assessment/Plan Last 24 Hours: My Active Orders 12/26/16 00:07 CULTURE STREP A CONFIRMATION [RM] Stat STREP SCRN A RAPID W CULT CONF [RM] Stat 12/26/16 00:11 Blood Culture x2 Reflex Set [OM.PC] Stat 12/26/16 00:30 CULTURE BLOOD [BC] Stat 12/26/16 00:35 CULTURE BLOOD [BC] Stat 12/26/16 01:03 RT Aerosol Therapy [RC] ASDIRECTED
[2016-12-26] MEDS ORDERED: Ondansetron 4 MG/2 ML SDV IV ONE (02:18)
[2016-12-26] MEDS ORDERED: LORazepam 0.5 MG Tab PO PRN (03:48)
[2016-12-26] MEDS ORDERED: Docusate Sodium 100 MG Cap PO PRN (03:48)
[2016-12-26] MEDS ORDERED: Nitroglycerin 0.4 MG Tab.SL SL PRN (03:48)
[2016-12-26] MEDS: Piperacillin/Tazobactam 2.25 GM in Sodium Chloride 0.9% 50 ML IV SCH ×4 (04:52→21:45)
[2016-12-26] MEDS: Heparin Sodium 5,000 Units/ML Vial SUBCUT SCH ×3 (04:53→20:24)
[2016-12-26] MEDS: Acetaminophen/HYDROcodone 325-5 MG Tab PO PRN (04:54)
--- NOTE | 2016-12-26 06:34 | HP ---
HISTORY OF PRESENT ILLNESS: Mr. Soto is a 61-year-old male, who went to the emergency room because of chest pain. The patient was recently seen in the emergency room 4 days prior to this visit because of chest pain and cough, was prescribed Levaquin; however, today, continues to have chest pain, which is worse with coughing. He has been coughing in the last 2 days, but nonproductive unable to spit up phlegm. He feels subjectively feverish and chills at home and short of breath. No exposure to any sick contacts. The patient has been having some difficulty lying recumbent that he needed to be on his side and sometimes he wakes up short of breath. He has been having some leg swelling. Otherwise, no nausea, no vomiting, no abdominal pain, no bloody stools, and no bloody urine. He also noted some wheezing. Has a history of renal insufficiency and reports that he had a stent put in late last year. PAST MEDICAL HISTORY: Coronary artery disease, renal insufficiency status post kidney biopsy, which showed diabetic glomerulosclerosis, type 2 diabetes mellitus on insulin, hypertension, diabetic neuropathy, B12 deficiency, and chronic anemia. PAST SURGICAL HISTORY: Cardiac stent placement, ankle surgery, and kidney biopsy. FAMILY HISTORY: Alcoholism in the family. SOCIAL HISTORY: He used to smoke. Denies any recreational drugs. REVIEW OF SYSTEMS: Ten systems were reviewed and were negative except for those mentioned above. MEDICATIONS: Reviewed. PHYSICAL EXAMINATION: Vital Signs: Blood pressure 157/62, heart rate of 54 beats per minute, temperature 36.7, oxygen saturation 100%, and respirations 16 breaths per minute. General Appearance: Awake, not in distress, speaking in sentences. HEENT: Head is normocephalic, atraumatic. Lungs: Bilateral air entry. Bilateral wheezes. CVS: Regular rate and rhythm. Abdomen: Soft. Hypoactive bowel sounds. No tenderness. Extremities: Bilateral pedal edema. LABORATORY DATA: CBC showed WBC of 4.8, hemoglobin 9.1, and platelet 152. Complete metabolic panel is pertinent for creatinine of 3.2. BNP 954. Prior to this, the BNP was 827. ASSESSMENT/PLAN: 1. Chest pain, which is pleuritic, and chest x-ray showing pneumonia. He will be admitted as a case of community-acquired pneumonia. Last time that he was hospitalized was August after he presented then with chest pain. Start the patient on Zosyn 2.25 every 6 hours dose to renal function. Send sputum for culture. Blood culture was already drawn from the emergency room. We will follow up on the results. DuoNeb nebulization every 6 hours scheduled. A flutter valve to be provided to patient himself. Monitor saturation. 2. BNP elevated given the history of the patient's coronary artery disease. On review of [facility], he had echo done early this year, which showed ejection fraction of 50% to 55%. We will hold the patient's p.o. Lasix. He was already given IV furosemide 40 mg in the emergency room. Strict I and O monitoring. Daily weights. 3. Acute on chronic kidney disease. His last best creatinine available was 2.1 last October 05, 2016, might be related to acute fluid overload. Monitor BmP. Monitor output. Holding lisinopril for now and losartan. 4. Hypertension. He was given a dose of diltiazem in the emergency room. Continue to monitor blood pressure closely. We will continue his Toprol 100 mg twice a day and Imdur 60 mg twice a day. 5. Diabetes. Last A1c was 8.1, that was last August 2016. Resume his insulin. We will do glucose checks before meals and bedtime and extra coverage medium dose corrective dosing. 6. Dyslipidemia. Resume fenofibrate and Zetia. 7. Neuropathy. Resume gabapentin. 8. History of coronary artery disease. Troponin 0.04. The chest pain that he is reporting is pleuritic in nature. We will resume aspirin, Plavix, Toprol, and Lipitor. The last time he had his troponin checked was a few days prior to this visit, and it is staying at 0.04. He had a troponin of 0.23 last August when he was shifted to [facility], and at that time, they did a stress test, which showed an ejection fraction of 57% with a fixed defect noted of the cardiac apex and periapical inferior wall. No acute findings noted then. We will repeat troponin to ensure stability of the troponin. Also, do a cardiac telemetry. 9. Chronic anemia. This is stable. 10.Deep venous thrombosis prophylaxis. Heparin. 11.Code status. Full code. The patient will be admitted as an inpatient in the medical surgical bel[facility]. We will continue to follow the patient and change the plans we made accordingly. TERESO /[id number] PRINCE
[2016-12-26] MEDS ORDERED: Insulin Aspart 100 Units/ML 3 ML Pen SUBCUT SCH ×2 (09:00→12:00)
[2016-12-26] MEDS ORDERED: Enoxaparin 40 MG/0.4 ML Syringe SUBCUT SCH (09:00)
[2016-12-26] MEDS: Insulin Detemir 100 Units/ML 3 ML Pen SUBCUT SCH ×2 (09:53→21:22)
[2016-12-26] MEDS: Insulin Aspart 100 Units/ML 3 ML Pen SUBCUT SCH ×6 (09:55→21:23)
[2016-12-26] MEDS: Loratadine 10 MG Tab PO SCH (11:29)
[2016-12-26] MEDS: Aspirin 81 MG Tab.Chew PO SCH (11:29)
[2016-12-26] MEDS: Terazosin 5 MG Cap PO SCH (11:30)
[2016-12-26] MEDS: Clopidogrel 75 MG Tab PO SCH (11:30)
[2016-12-26] MEDS: Gabapentin 300 MG Cap PO SCH (11:30)
[2016-12-26] MEDS: Ezetimibe 10 MG Tab PO SCH (11:31)
[2016-12-26] MEDS: Hydrochlorothiazide 25 MG Tab PO SCH (11:32)
[2016-12-26] MEDS: Isosorbide Mononitrate 60 MG Tab.ER PO SCH ×2 (11:32→20:26)
[2016-12-26] MEDS: Albuterol/Ipratropium 3.0-0.5 MG/3 ML Neb Soln NEB SCH ×3 (13:07→18:29)
[2016-12-26] MEDS: Metoprolol Succinate 50 MG Tab.ER PO SCH ×2 (14:06→20:29)
[2016-12-26] MEDS: Famotidine 20 MG Tab PO SCH (20:25)
[2016-12-26] MEDS: Gabapentin 400 MG Cap PO SCH (20:26)
[2016-12-26] MEDS: atorvaSTATin 20 MG Tab PO SCH (20:27)
[2016-12-26] MEDS ORDERED: hydrALAZINE 20 MG/ML SDV IVPUSH ONE (21:17)
[2016-12-26] MEDS: Zolpidem 5 MG Tab PO PRN (21:53)
--- NOTE | 2016-12-26 22:40 | EKG ---
12/26/2016 - ADAMA QUINTANILLA - EKG done on a 61-year-old male showing sinus bradycardia with a heart rate of 56 beats per minute. Intraventricular conduction delay noted. LVH noted. T-wave inversions noted on lateral leads, which is present on previous EKG done on 12/23/2016. [facility] /[id number] MTDD
[2016-12-27] MEDS: Albuterol/Ipratropium 3.0-0.5 MG/3 ML Neb Soln NEB SCH ×4 (01:12→18:20)
[2016-12-27] MEDS: Heparin Sodium 5,000 Units/ML Vial SUBCUT SCH ×3 (04:09→21:05)
[2016-12-27] MEDS: Piperacillin/Tazobactam 2.25 GM in Sodium Chloride 0.9% 50 ML IV SCH ×4 (04:09→22:15)
[2016-12-27] MEDS: Insulin Aspart 100 Units/ML 3 ML Pen SUBCUT SCH ×6 (08:45→21:04)
[2016-12-27] MEDS: Loratadine 10 MG Tab PO SCH (08:53)
[2016-12-27] MEDS: Hydrochlorothiazide 25 MG Tab PO SCH (08:53)
[2016-12-27] MEDS: Terazosin 5 MG Cap PO SCH (08:53)
[2016-12-27] MEDS: Gabapentin 300 MG Cap PO SCH (08:53)
[2016-12-27] MEDS: Metoprolol Succinate 50 MG Tab.ER PO SCH ×2 (08:54→21:07)
[2016-12-27] MEDS: Ezetimibe 10 MG Tab PO SCH (08:54)
[2016-12-27] MEDS: Aspirin 81 MG Tab.Chew PO SCH (08:54)
[2016-12-27] MEDS: Clopidogrel 75 MG Tab PO SCH (08:55)
[2016-12-27] MEDS: Isosorbide Mononitrate 60 MG Tab.ER PO SCH ×2 (08:55→21:08)
[2016-12-27] MEDS: Famotidine 20 MG Tab PO SCH ×2 (08:55→21:09)
[2016-12-27] MEDS: Insulin Detemir 100 Units/ML 3 ML Pen SUBCUT SCH ×2 (08:57→21:05)
[2016-12-27] MEDS: Acetaminophen/HYDROcodone 325-5 MG Tab PO PRN (09:10)
[2016-12-27] MEDS: FENOFIBRIC ACID 45 MG PO SCH ×2 (15:22→16:04)
--- NOTE | 2016-12-27 16:33 | PCM.PN ---
- General Info Date of Service: 12/27/16 Subjective Update: Mr. Soto is a 61 year old male was admitted due to right sided pneumonia after he presented with pleuritic chest pain and cough. also was noted to have elevated BNP, orthopnea, PND and leg swelling. has been getting IV lasix. today , he felt better. he was also started on Pepcid as he complained of discomfort after eating yesterday. he denies any chest pain. still not able to expectorate. Functional Status: Reports: Tolerating Diet, Ambulating - Patient Data Vitals - Most Recent: Last Vital Signs Temp 36.3 C 12/27/16 15:00 Pulse 81 12/27/16 15:00 Resp 20 12/27/16 15:00 BP 143/79 H 12/27/16 15:00 Pulse Ox 98 12/27/16 15:00 Weight - Most Recent: 114.94 kg I&O - Last 24 Hours: Intake & Output 12/27/16 12/27/16 12/27/16 06:59 14:59 22:59 Intake Total 246 1144 Output Total 2000 1000 Balance -1754 144 Lab Results Last 24 Hours: Laboratory Results - last 24 hr 12/26/16 12/26/16 12/27/16 Range/Units 16:52 21:13 06:15 WBC 5.0 (5.0-10.0) 10^3/uL RBC 3.30 L (4.6-6.2) 10^6/uL Hgb 8.7 L (14.0-18.0) g/dL Hct 27.0 L (40.0-54.0) % MCV 81.8 (80-100) fL MCH 26.4 L (27.0-34.0) pg MCHC 32.2 L (33.0-35.0) g/dL Plt Count 188 (150-450) 10^3/uL Sodium (135-145) mmol/L Potassium (3.6-5.0) mmol/L Chloride (101-111) mmol/L Carbon Dioxide (21.0-31.0) mmol/L Anion Gap BUN (7-18) mg/dL Creatinine (0.6-1.3) mg/dL Est Cr Clr Drug Dosing mL/min Estimated GFR (MDRD) Glucose (74-105) mg/dL POC Glucose 174 H 162 H (70-105) mg/dl Calcium (8.4-10.2) mg/dl 12/27/16 12/27/16 12/27/16 Range/Units 06:15 07:53 11:18 WBC (5.0-10.0) 10^3/uL RBC (4.6-6.2) 10^6/uL Hgb (14.0-18.0) g/dL Hct (40.0-54.0) % MCV (80-100) fL MCH (27.0-34.0) pg MCHC (33.0-35.0) g/dL Plt Count (150-450) 10^3/uL Sodium 143 (135-145) mmol/L Potassium 4.0 (3.6-5.0) mmol/L Chloride 109 (101-111) mmol/L Carbon Dioxide 23.0 (21.0-31.0) mmol/L Anion Gap 15.0 BUN 46 H (7-18) mg/dL Creatinine 3.6 H (0.6-1.3) mg/dL Est Cr Clr Drug Dosing 22.95 mL/min Estimated GFR (MDRD) 17 Glucose 108 H (74-105) mg/dL POC Glucose 87 62 L (70-105) mg/dl Calcium 8.3 L (8.4-10.2) mg/dl Med Orders - Current: Current Medications Hydrocodone Bitart/Acetaminophen ([place] 325-5 Mg) 1 tab PO TID PRN PRN Reason: Pain (moderate 4-6) Last Admin: 12/27/16 09:10 Dose: 1 tab Albuterol/Ipratropium (Duoneb 3.0-0.5 Mg/3 Ml) 3 ml NEB Q6HRRT [facility] Last Admin: 12/27/16 13:22 Dose: 3 ml Aspirin (Aspirin) 81 mg PO DAILY [facility] Last Admin: 12/27/16 08:54 Dose: 81 mg Atorvastatin Calcium (Lipitor) 40 mg PO BEDTIME [facility] Last Admin: 12/26/16 20:27 Dose: 40 mg Clopidogrel Bisulfate (Plavix) 75 mg PO DAILY [facility] Last Admin: 12/27/16 08:55 Dose: 75 mg Docusate Sodium (Colace) 100 mg PO BID PRN PRN Reason: Stool Softener Last Admin: 12/27/16 09:11 Dose: 100 mg Ezetimibe (Zetia) 10 mg PO DAILY [facility] Last Admin: 12/27/16 08:54 Dose: 10 mg Famotidine (Pepcid) 20 mg PO BID [facility] Last Admin: 12/27/16 08:55 Dose: 20 mg Gabapentin (Neurontin) 600 mg PO DAILY [facility] Last Admin: 12/27/16 08:53 Dose: 600 mg Gabapentin (Neurontin) 1,200 mg PO BEDTIME [facility] Last Admin: 12/26/16 20:26 Dose: 1,200 mg Heparin Sodium (Porcine) (Heparin Sodium) 5,000 units SUBCUT Q8H [facility] Last Admin: 12/27/16 13:58 Dose: 5,000 units Hydrochlorothiazide (Hydrochlorothiazide) 25 mg PO DAILY [facility] Last Admin: 12/27/16 08:53 Dose: 25 mg Piperacillin Sod/Tazobactam (Sod 2.25 gm/ Sodium Chloride) 50 mls @ 100 mls/hr IV Q6H [facility] Last Admin: 12/27/16 10:58 Dose: 100 mls/hr Insulin Aspart (Novolog) 0 unit SUBCUT QIDACANDBED [facility] PRN Reason: Protocol Last Admin: 12/27/16 12:08 Dose: Not Given Insulin Aspart (Novolog) 15 unit SUBCUT TIDAC [facility] Last Admin: 12/27/16 12:08 Dose: Not Given Insulin Detemir (Levemir) 0 unit SUBCUT BEDTIME [facility] Last Admin: 12/26/16 21:22 Dose: 50 units Insulin Detemir (Levemir) 0 unit SUBCUT QAM [facility] Last Admin: 12/27/16 08:57 Dose: 50 units Isosorbide Mononitrate (Imdur) 60 mg PO BID [facility] Last Admin: 12/27/16 08:55 Dose: 60 mg Loratadine (Claritin) 10 mg PO DAILY [facility] Last Admin: 12/27/16 08:53 Dose: 10 mg Lorazepam (Ativan) 0.5 mg PO QID PRN PRN Reason: Anxiety Metoprolol Succinate (Toprol Xl) 100 mg PO BID [facility] Last Admin: 12/27/16 08:54 Dose: 100 mg Nitroglycerin (Nitrostat) 0.4 mg SL Q5M PRN PRN Reason: Chest Pain Sodium Chloride (Saline Flush) 10 ml FLUSH ASDIRECTED PRN PRN Reason: Keep Vein Open Terazosin HCl (Hytrin) 5 mg PO DAILY [facility] Last Admin: 12/27/16 08:53 Dose: 5 mg Zolpidem Tartrate (Ambien) 10 mg PO BEDTIME PRN PRN Reason: Insomnia Last Admin: 12/26/16 21:53 Dose: 10 mg Discontinued Medications Albuterol/Ipratropium (Duoneb 3.0-0.5 Mg/3 Ml) 3 ml NEB ONETIME ONE Stop: 12/26/16 01:04 Last Admin: 12/26/16 01:09 Dose: 3 ml Aspirin (Aspirin) 324 mg PO ONETIME ONE Stop: 12/26/16 01:24 Last Admin: 12/26/16 01:28 Dose: 324 mg Diltiazem HCl (Diltiazem) 5 mg IVPUSH ONETIME ONE Stop: 12/26/16 01:53 Last Admin: 12/26/16 02:02 Dose: 5 mg Enoxaparin Sodium (Lovenox) 40 mg SUBCUT DAILY [facility] Ergocalciferol (Vitamin D2) 50,000 units PO Q7D [facility] Furosemide (Lasix) 40 mg IVPUSH NOW ONE Stop: 12/26/16 01:22 Last Admin: 12/26/16 01:37 Dose: 40 mg Furosemide (Lasix) 40 mg IVPUSH NOW ONE Stop: 12/26/16 10:05 Last Admin: 12/26/16 11:32 Dose: 40 mg Hydralazine HCl (Apresoline) 10 mg IVPUSH ONETIME ONE Stop: 12/26/16 21:18 Last Admin: 12/26/16 21:40 Dose: 10 mg Insulin Aspart (Novolog) 0 unit SUBCUT TIDAC [facility] Last Admin: 12/26/16 16:56 Dose: Not Given Insulin Aspart (Novolog) 0 unit SUBCUT QID [facility] PRN Reason: Protocol Last Admin: 12/26/16 13:25 Dose: Not Given Insulin Aspart (Novolog) 15 unit SUBCUT TIDAC [facility] Non-Formulary Medication (Fenofibric Acid (Choline) [Fenofibric Acid]) 45 mg PO DAILY [facility] Last Admin: 12/27/16 16:04 Dose: Not Given Ondansetron HCl (Zofran) 4 mg IV ONETIME ONE Stop: 12/26/16 02:19 Last Admin: 12/26/16 02:23 Dose: 4 mg - Exam General: Alert, Oriented Lungs: Normal Respiratory Effort, Crackles, Wheezing Cardiovascular: Regular Rate, Regular Rhythm GI/Abdominal Exam: Normal Bowel Sounds, Soft, Non-Tender Extremities: Other (pitting edema bilaterally) - Problem List & Annotations (1) Diabetes mellitus SNOMED Code(s): 40124896 Code(s): E11.9 - TYPE 2 DIABETES MELLITUS WITHOUT COMPLICATIONS Status: Acute Current Visit: Yes Qualifiers: Diabetes mellitus type: type 2 (2) Anemia SNOMED Code(s): 107990532 Code(s): D64.9 - ANEMIA, UNSPECIFIED Status: Acute Current Visit: Yes Qualifiers: Anemia type: unspecified type Qualified Code(s): D64.9 - Anemia, unspecified (3) RLL pneumonia SNOMED Code(s): 246824095 Code(s): J18.1 - LOBAR PNEUMONIA, UNSPECIFIED ORGANISM Status: Acute Current Visit: Yes Qualifiers: Pneumonia type: due to unspecified organism Qualified Code(s): J18.1 - Lobar pneumonia, unspecified organism (4) Renal failure, unspecified SNOMED Code(s): 87295587 Code(s): N19 - UNSPECIFIED KIDNEY FAILURE Status: Acute Current Visit: Yes Qualifiers: Renal failure chronicity: acute on chronic Acute renal failure type: unspecified Chronic kidney disease stage: unspecified stage Qualified Code(s ): N17.9 - Acute kidney failure, unspecified; N18.9 - Chronic kidney disease, unspecified - Problem List Review Problem List Initiated/Reviewed/Updated: Yes - My Orders Last 24 Hours: My Active Orders 12/26/16 17:00 Insulin Aspart [NovoLOG] 0 unit SUBCUT QIDACANDBED 12/26/16 21:00 Famotidine [Pepcid] 20 mg PO BID Gabapentin [Neurontin] 1,200 mg PO BEDTIME Insulin Detemir [Levemir] 0 unit SUBCUT BEDTIME atorvaSTATin [Lipitor] 40 mg PO BEDTIME 12/27/16 11:06 Sodium Chloride 0.9% [Saline Flush] 10 ml FLUSH ASDIRECTED PRN 12/28/16 06:00 BASIC METABOLIC PANEL,BMP [CHEM] Routine CBC W/O DIFF,HEMOGRAM [HEME] Routine - Plan Plan:: 1. Right lower lobe pneumonia - afebrile, no leukocytosis but with neutropenia - microbiologic studies unrevealing - switch IV abx to po antibiotics - continue nebulizations, incentive spirometry, flutter valve 2. 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 diabetic mellitus, now wit hypoglycemia - holding premeals novolog - continu glucochecks - if still with borderline sugars, may need to hold/decrease levemir 4. hypertension - on Toprol, lisinorpil and losartan were on hold due to acute renal failure - ensure good BP due to renal insufficiency 5. diabetic neuropathy - continue gabapentin 6. chronic anemia (b12 deficiency, CKD) - no signs of bleeding 7. DVT prophylaxis - heparin SQ every 8 hours
[2016-12-27] MEDS: Docusate Sodium 100 MG Cap PO SCH (21:07)
[2016-12-27] MEDS: Gabapentin 400 MG Cap PO SCH (21:07)
[2016-12-27] MEDS: Simvastatin 10 MG Tab PO SCH (21:09)
[2016-12-27] MEDS: atorvaSTATin 20 MG Tab PO SCH (21:09)
[2016-12-27] MEDS: Zolpidem 5 MG Tab PO PRN (22:23)
[2016-12-28] MEDS: Albuterol/Ipratropium 3.0-0.5 MG/3 ML Neb Soln NEB SCH ×4 (00:58→17:46)
[2016-12-28] MEDS: Piperacillin/Tazobactam 2.25 GM in Sodium Chloride 0.9% 50 ML IV SCH ×2 (04:09→10:18)
[2016-12-28] MEDS: Heparin Sodium 5,000 Units/ML Vial SUBCUT SCH ×3 (04:09→21:07)
[2016-12-28] MEDS: Sodium Chloride 0.9% 10 ML Syringe FLUSH PRN ×2 (04:10→10:19)
[2016-12-28] MEDS: Aspirin 81 MG Tab.Chew PO SCH (08:57)
[2016-12-28] MEDS: Hydrochlorothiazide 25 MG Tab PO SCH (08:57)
[2016-12-28] MEDS: Gabapentin 300 MG Cap PO SCH (08:57)
[2016-12-28] MEDS: Terazosin 5 MG Cap PO SCH (08:59)
[2016-12-28] MEDS: Ezetimibe 10 MG Tab PO SCH (09:00)
[2016-12-28] MEDS ORDERED: Losartan 50 MG Tab PO SCH (09:00)
[2016-12-28] MEDS ORDERED: Lisinopril 10 MG Tab PO SCH (09:00)
[2016-12-28] MEDS ORDERED: Ergocalciferol (Vitamin D2) 50,000 Unit Cap PO SCH (09:00)
[2016-12-28] MEDS: Metoprolol Succinate 50 MG Tab.ER PO SCH ×2 (09:01→21:12)
[2016-12-28] MEDS: Famotidine 20 MG Tab PO SCH ×2 (09:02→21:13)
[2016-12-28] MEDS: Clopidogrel 75 MG Tab PO SCH (09:03)
[2016-12-28] MEDS: Furosemide 40 MG Tab PO SCH (09:03)
[2016-12-28] MEDS: Loratadine 10 MG Tab PO SCH (09:03)
[2016-12-28] MEDS: Docusate Sodium 100 MG Cap PO SCH ×2 (09:03→21:10)
[2016-12-28] MEDS: Isosorbide Mononitrate 60 MG Tab.ER PO SCH (09:03)
[2016-12-28] MEDS: Insulin Detemir 100 Units/ML 3 ML Pen SUBCUT SCH ×3 (09:06→21:15)
[2016-12-28] MEDS ORDERED: Bisacodyl 10 MG Supp RECTAL PRN (09:55)
--- NOTE | 2016-12-28 10:06 | PCM.PN ---
- General Info Date of Service: 12/28/16 Admission Dx/Problem (Free Text): Pt was admitted with Right Lower lobe Pneumonia Subjective Update: today he feeling good, No increased shortness of breath, No nausea or vomiting. He feels bloated after the meal and had no BM for the last 4 days. He slept well and appetite is good . Functional Status: Reports: Pain Controlled, Tolerating Diet, Ambulating, Urinating - Review of Systems General: Denies: Fever, Chills, Appetite (good) HEENT: Denies: Headaches, Sinus Congestion, Sore Throat, Visual Changes Pulmonary: Reports: Cough. Denies: Shortness of Breath, Sputum, Wheezing Cardiovascular: Denies: Chest Pain, Dyspnea on Exertion, Lightheadedness Gastrointestinal: Reports: Constipation. Denies: Abdominal Pain, Nausea, Vomiting Genitourinary: Reports: Dysuria. Denies: Burning, Pain, Urgency, Flank Pain Musculoskeletal: Denies: Neck Pain, Shoulder Pain, Foot Pain, Joint Swelling Skin: Denies: Cyanosis, Jaundice, Bruising, Pruritis, Rash Neurological: Denies: Confusion, Tingling, Tremors Psychiatric: Denies: Confusion, Anxiety - Patient Data Vitals - Most Recent: Last Vital Signs Temp 36.9 C 12/28/16 07:39 Pulse 68 12/28/16 09:01 Resp 20 12/28/16 07:39 BP 166/80 H 12/28/16 09:02 Pulse Ox 99 12/28/16 07:39 Weight - Most Recent: 114.85 kg I&O - Last 24 Hours: Intake & Output 12/27/16 12/28/16 12/28/16 22:59 06:59 14:59 Intake Total 500 622 Output Total 1100 2400 Balance -600 -7838 Lab Results Last 24 Hours: Laboratory Results - last 24 hr 12/27/16 12/27/16 12/27/16 Range/Units 07:53 11:18 16:50 WBC (5.0-10.0) 10^3/uL RBC (4.6-6.2) 10^6/uL Hgb (14.0-18.0) g/dL Hct (40.0-54.0) % MCV (80-100) fL MCH (27.0-34.0) pg MCHC (33.0-35.0) g/dL Plt Count (150-450) 10^3/uL Sodium (135-145) mmol/L Potassium (3.6-5.0) mmol/L Chloride (101-111) mmol/L Carbon Dioxide (21.0-31.0) mmol/L Anion Gap BUN (7-18) mg/dL Creatinine (0.6-1.3) mg/dL Est Cr Clr Drug Dosing mL/min Estimated GFR (MDRD) Glucose (74-105) mg/dL POC Glucose 87 62 L 156 H (70-105) mg/dl Calcium (8.4-10.2) mg/dl 12/27/16 12/28/16 12/28/16 Range/Units 21:03 06:00 06:00 WBC 5.3 (5.0-10.0) 10^3/uL RBC 3.52 L (4.6-6.2) 10^6/uL Hgb 9.3 L (14.0-18.0) g/dL Hct 28.9 L (40.0-54.0) % MCV 82.1 (80-100) fL MCH 26.4 L (27.0-34.0) pg MCHC 32.2 L (33.0-35.0) g/dL Plt Count 211 (150-450) 10^3/uL Sodium 144 (135-145) mmol/L Potassium 4.3 (3.6-5.0) mmol/L Chloride 111 (101-111) mmol/L Carbon Dioxide 23.0 (21.0-31.0) mmol/L Anion Gap 14.3 BUN 38 H (7-18) mg/dL Creatinine 3.2 H (0.6-1.3) mg/dL Est Cr Clr Drug Dosing 25.82 mL/min Estimated GFR (MDRD) 20 Glucose 88 (74-105) mg/dL POC Glucose 132 H (70-105) mg/dl Calcium 8.3 L (8.4-10.2) mg/dl 12/28/16 Range/Units 07:48 WBC (5.0-10.0) 10^3/uL RBC (4.6-6.2) 10^6/uL Hgb (14.0-18.0) g/dL Hct (40.0-54.0) % MCV (80-100) fL MCH (27.0-34.0) pg MCHC (33.0-35.0) g/dL Plt Count (150-450) 10^3/uL Sodium (135-145) mmol/L Potassium (3.6-5.0) mmol/L Chloride (101-111) mmol/L Carbon Dioxide (21.0-31.0) mmol/L Anion Gap BUN (7-18) mg/dL Creatinine (0.6-1.3) mg/dL Est Cr Clr Drug Dosing mL/min Estimated GFR (MDRD) Glucose (74-105) mg/dL POC Glucose 70 (70-105) mg/dl Calcium (8.4-10.2) mg/dl Med Orders - Current: Current Medications Hydrocodone Bitart/Acetaminophen ([place] 325-5 Mg) 1 tab PO TID PRN PRN Reason: Pain (moderate 4-6) Last Admin: 12/27/16 09:10 Dose: 1 tab Albuterol/Ipratropium (Duoneb 3.0-0.5 Mg/3 Ml) 3 ml NEB Q6HRRT [facility] Last Admin: 12/28/16 07:30 Dose: 3 ml Amoxicillin/Clavulanate Potassium (Augmentin 875 Mg/125 Mg) 1 tab PO Q12HR [facility] Aspirin (Aspirin) 81 mg PO DAILY [facility] Last Admin: 12/28/16 08:57 Dose: 81 mg Atorvastatin Calcium (Lipitor) 40 mg PO BEDTIME [facility] Last Admin: 12/27/16 21:09 Dose: 40 mg Bisacodyl (Dulcolax) 10 mg RECTAL BID PRN PRN Reason: Constipation Clopidogrel Bisulfate (Plavix) 75 mg PO DAILY [facility] Last Admin: 12/28/16 09:03 Dose: 75 mg Docusate Sodium (Colace) 100 mg PO BID [facility] Last Admin: 12/28/16 09:03 Dose: 100 mg Ezetimibe (Zetia) 10 mg PO DAILY [facility] Last Admin: 12/28/16 09:00 Dose: 10 mg Famotidine (Pepcid) 20 mg PO BID [facility] Last Admin: 12/28/16 09:02 Dose: 20 mg Furosemide (Lasix) 40 mg PO DAILY [facility] Last Admin: 12/28/16 09:03 Dose: 40 mg Gabapentin (Neurontin) 600 mg PO DAILY [facility] Last Admin: 12/28/16 08:57 Dose: 600 mg Gabapentin (Neurontin) 1,200 mg PO BEDTIME [facility] Last Admin: 12/27/16 21:07 Dose: 1,200 mg Heparin Sodium (Porcine) (Heparin Sodium) 5,000 units SUBCUT Q8H [facility] Last Admin: 12/28/16 04:09 Dose: 5,000 units Hydrochlorothiazide (Hydrochlorothiazide) 25 mg PO DAILY [facility] Last Admin: 12/28/16 08:57 Dose: 25 mg Piperacillin Sod/Tazobactam (Sod 2.25 gm/ Sodium Chloride) 50 mls @ 100 mls/hr IV Q6H [facility] Last Admin: 12/28/16 04:09 Dose: 100 mls/hr Insulin Aspart (Novolog) 0 unit SUBCUT QIDACANDBED [facility] PRN Reason: Protocol Last Admin: 12/27/16 21:04 Dose: Not Given Insulin Aspart (Novolog) 15 unit SUBCUT TIDAC [facility] Last Admin: 12/27/16 12:08 Dose: Not Given Insulin Detemir (Levemir) 0 unit SUBCUT BEDTIME [facility] Last Admin: 12/27/16 21:05 Dose: 50 units Insulin Detemir (Levemir) 30 unit SUBCUT QAM [facility] Isosorbide Mononitrate (Imdur) 90 mg PO BID [facility] Lisinopril (Prinivil) 10 mg PO DAILY [facility] Last Admin: 12/28/16 09:02 Dose: 10 mg Loratadine (Claritin) 10 mg PO DAILY [facility] Last Admin: 12/28/16 09:03 Dose: 10 mg Lorazepam (Ativan) 0.5 mg PO QID PRN PRN Reason: Anxiety Losartan Potassium (Cozaar) 100 mg PO DAILY [facility] Last Admin: 12/28/16 08:59 Dose: 100 mg Metoprolol Succinate (Toprol Xl) 100 mg PO BID [facility] Last Admin: 12/28/16 09:01 Dose: 100 mg Nitroglycerin (Nitrostat) 0.4 mg SL Q5M PRN PRN Reason: Chest Pain Senna/Docusate Sodium (Senna Plus) 1 tab PO BID [facility] Simvastatin (Zocor) 20 mg PO BEDTIME [facility] Last Admin: 12/27/16 21:09 Dose: 20 mg Sodium Chloride (Saline Flush) 10 ml FLUSH ASDIRECTED PRN PRN Reason: Keep Vein Open Last Admin: 12/28/16 04:10 Dose: 10 ml Terazosin HCl (Hytrin) 5 mg PO DAILY [facility] Last Admin: 12/28/16 08:59 Dose: 5 mg Zolpidem Tartrate (Ambien) 10 mg PO BEDTIME PRN PRN Reason: Insomnia Last Admin: 12/27/16 22:23 Dose: 10 mg Discontinued Medications Albuterol/Ipratropium (Duoneb 3.0-0.5 Mg/3 Ml) 3 ml NEB ONETIME ONE Stop: 12/26/16 01:04 Last Admin: 12/26/16 01:09 Dose: 3 ml Aspirin (Aspirin) 324 mg PO ONETIME ONE Stop: 12/26/16 01:24 Last Admin: 12/26/16 01:28 Dose: 324 mg Diltiazem HCl (Diltiazem) 5 mg IVPUSH ONETIME ONE Stop: 12/26/16 01:53 Last Admin: 12/26/16 02:02 Dose: 5 mg Docusate Sodium (Colace) 100 mg PO BID PRN PRN Reason: Stool Softener Last Admin: 12/27/16 09:11 Dose: 100 mg Enoxaparin Sodium (Lovenox) 40 mg SUBCUT DAILY [facility] Ergocalciferol (Vitamin D2) 50,000 units PO Q7D [facility] Furosemide (Lasix) 40 mg IVPUSH NOW ONE Stop: 12/26/16 01:22 Last Admin: 12/26/16 01:37 Dose: 40 mg Furosemide (Lasix) 40 mg IVPUSH NOW ONE Stop: 12/26/16 10:05 Last Admin: 12/26/16 11:32 Dose: 40 mg Hydralazine HCl (Apresoline) 10 mg IVPUSH ONETIME ONE Stop: 12/26/16 21:18 Last Admin: 12/26/16 21:40 Dose: 10 mg Insulin Aspart (Novolog) 0 unit SUBCUT TIDAC [facility] Last Admin: 12/26/16 16:56 Dose: Not Given Insulin Aspart (Novolog) 0 unit SUBCUT QID [facility] PRN Reason: Protocol Last Admin: 12/26/16 13:25 Dose: Not Given Insulin Aspart (Novolog) 15 unit SUBCUT TIDAC [facility] Insulin Detemir (Levemir) 0 unit SUBCUT QAM [facility] Last Admin: 12/28/16 09:06 Dose: 30 units Isosorbide Mononitrate (Imdur) 60 mg PO BID [facility] Last Admin: 12/28/16 09:03 Dose: 60 mg Non-Formulary Medication (Fenofibric Acid (Choline) [Fenofibric Acid]) 45 mg PO DAILY [facility] Last Admin: 12/27/16 16:04 Dose: Not Given Ondansetron HCl (Zofran) 4 mg IV ONETIME ONE Stop: 12/26/16 02:19 Last Admin: 12/26/16 02:23 Dose: 4 mg - Exam Quality Assessment: DVT Prophylaxis. No: Supplemental Oxygen, Urine Catheter General: Alert, Oriented, Cooperative, No Acute Distress HEENT: Pupils Equal, Mucous Membr. Moist/[place] Neck: Supple. No: No JVD, Lymphadenopathy Lungs: Clear to Auscultation, Normal Respiratory Effort. No: Rhonchi, Wheezing Cardiovascular: Regular Rate, Regular Rhythm, Murmurs GI/Abdominal Exam: Normal Bowel Sounds, Distended. No: Guarding, Rebound, Tender (Male) Exam: Deferred Back Exam: Normal Inspection, Full Range of Motion Extremities: Normal Inspection, Non-Tender, Pedal Edema (trace), Other (No calf tenderness) Skin: Warm, Dry, Intact Neurological: No New Focal Deficit Psy/Mental Status: Alert, Normal Affect, Normal Mood - Problem List & Annotations (1) Diabetes mellitus SNOMED Code(s): 10160409 Code(s): E11.9 - TYPE 2 DIABETES MELLITUS WITHOUT COMPLICATIONS Status: Acute Current Visit: Yes Qualifiers: Diabetes mellitus type: type 2 (2) Hypertension SNOMED Code(s): 30147683 Code(s): I10 - ESSENTIAL (PRIMARY) HYPERTENSION Status: Acute Current Visit: Yes (3) RLL pneumonia SNOMED Code(s): 690214778 Code(s): J18.1 - LOBAR PNEUMONIA, UNSPECIFIED ORGANISM Status: Acute Current Visit: Yes Qualifiers: Pneumonia type: due to unspecified organism Qualified Code(s): J18.1 - Lobar pneumonia, unspecified organism (4) Renal failure, unspecified SNOMED Code(s): 18364188 Code(s): N19 - UNSPECIFIED KIDNEY FAILURE Status: Acute Current Visit: Yes Qualifiers: Renal failure chronicity: acute on chronic Acute renal failure type: unspecified Chronic kidney disease stage: unspecified stage Qualified Code(s ): N17.9 - Acute kidney failure, unspecified; N18.9 - Chronic kidney disease, unspecified - Problem List Review Problem List Initiated/Reviewed/Updated: Yes - My Orders Last 24 Hours: My Active Orders 12/27/16 21:21 Discontinue Telemetry Monitoring [Cardiac Monitoring Discontinue] [RC] Click To Edit 12/28/16 08:55 Insulin Detemir [Levemir] 30 unit SUBCUT QAM 12/28/16 09:45 Isosorbide Mononitrate [Imdur] 90 mg PO BID 12/28/16 09:55 Bisacodyl [Dulcolax] 10 mg RECTAL BID PRN 12/28/16 16:00 Amoxicillin/Clavulanate K [Augmentin 875 MG/125 MG] 1 tab PO Q12HR 12/28/16 21:00 Docusate Sodium/Sennosides [Senna Plus] 1 tab PO BID - Plan Plan:: 1. Right lower lobe pneumonia - afebrile, no leukocytosis but with neutropenia - microbiologic studies ( B/C- showing no growth, Throat Culture also showed no growth) - switch IV abx ( Zosyn) to po antibiotics ( augmentin 875 mg PO BID- start time today at 6 PM) - continue nebulizations, incentive spirometry, flutter valve 2. 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 diabetic mellitus, now with hypoglycemia - holding premeals novolog - continu glucochecks - Will continue levemir 30 units in AM and 50 units at night 4. hypertension - on Toprol, 100 mg BID and changed Imdur to 90 mg BID [ was at 60 mg BID] -Will hold Lisinopril [ was at 10 mg daily and Cozaar at 100 mg daily] -Check BP q4 hrs 5. diabetic neuropathy - continue gabapentin 6. chronic anemia (b12 deficiency, CKD) - no signs of bleeding 7. ABHISHEK: This is likely from use of Abx ( causing allergic AIN) and also over diuresis -Will hold Diuretis -Will hold Lissinopril ( was at 10 mg daily and Cozaar ( was at 100 mg daily) -Will start Hydralazine at 100 mg BID 8. Constipation: Pt had no BM for 4 days -Will start Senokot S and if no response the will give dulcolax suppositories 9. DVT prophylaxis - heparin SQ every 8 hours
[2016-12-28] MEDS: Insulin Aspart 100 Units/ML 3 ML Pen SUBCUT SCH ×4 (12:22→21:19)
[2016-12-28] MEDS: hydrALAZINE 25 MG Tab PO SCH ×2 (12:27→22:52)
[2016-12-28] MEDS ORDERED: Amoxicillin/Clavulanate K 875-125 MG Tab PO SCH (16:00)
[2016-12-28] MEDS: Amoxicillin/Clavulanate K 875-125 MG Tab PO SCH (21:07)
[2016-12-28] MEDS: atorvaSTATin 20 MG Tab PO SCH (21:11)
[2016-12-28] MEDS: Gabapentin 400 MG Cap PO SCH (21:11)
[2016-12-28] MEDS: Isosorbide Mononitrate 30 MG Tab.ER PO SCH (21:13)
[2016-12-28] MEDS: Simvastatin 10 MG Tab PO SCH (21:14)
[2016-12-28] MEDS: Zolpidem 5 MG Tab PO PRN (23:56)
[2016-12-29] MEDS: Albuterol/Ipratropium 3.0-0.5 MG/3 ML Neb Soln NEB SCH ×3 (00:35→12:58)
[2016-12-29] MEDS: Heparin Sodium 5,000 Units/ML Vial SUBCUT SCH ×2 (04:36→12:13)
[2016-12-29] MEDS ORDERED: Insulin Detemir 100 Units/ML 3 ML Pen SUBCUT SCH (08:21)
[2016-12-29] MEDS: Insulin Aspart 100 Units/ML 3 ML Pen SUBCUT SCH ×2 (08:26→12:20)
[2016-12-29] MEDS ORDERED: hydrALAZINE 25 MG Tab PO SCH ×2 (09:28→10:00)
[2016-12-29] MEDS ORDERED: hydrALAZINE 20 MG/ML SDV ONE (09:32)
[2016-12-29] MEDS: Furosemide 40 MG Tab PO SCH (09:43)
[2016-12-29] MEDS: Metoprolol Succinate 50 MG Tab.ER PO SCH (09:44)
[2016-12-29] MEDS: Loratadine 10 MG Tab PO SCH (09:44)
[2016-12-29] MEDS: Clopidogrel 75 MG Tab PO SCH (09:45)
[2016-12-29] MEDS: Docusate Sodium 100 MG Cap PO SCH (09:45)
[2016-12-29] MEDS: Ezetimibe 10 MG Tab PO SCH (09:45)
[2016-12-29] MEDS: Terazosin 5 MG Cap PO SCH (09:46)
[2016-12-29] MEDS: Famotidine 20 MG Tab PO SCH (09:47)
[2016-12-29] MEDS: Amoxicillin/Clavulanate K 875-125 MG Tab PO SCH (09:48)
[2016-12-29] MEDS: Isosorbide Mononitrate 30 MG Tab.ER PO SCH (09:48)
[2016-12-29] MEDS: Hydrochlorothiazide 25 MG Tab PO SCH (09:49)
[2016-12-29] MEDS: Aspirin 81 MG Tab.Chew PO SCH (09:49)
[2016-12-29] MEDS: Gabapentin 300 MG Cap PO SCH (09:50)
[2016-12-29] MEDS: Insulin Detemir 100 Units/ML 3 ML Pen SUBCUT SCH (09:53)
[2016-12-29 11:46] VITALS: BP 141/75
--- NOTE | 2016-12-29 11:46 | PCM.DCSUM1 ---
Discharge Summary - Hospital Course Free Text/Narrative:: Mr. Soto is a 61 y/O Male with Past history of Hypertension, Diabetes II ( Insulin Dependent) , CAD, Nephrotic syndrome ( Secondary to Diabetic Nephropathy , S/P Kidney Biopsy), he was admitted with Right Lower lobe Pneumonia and later also noted to have significant fluid overload and was extensively diuresed, that lead to ABHISHEK. He was treated for Pneumonia with IV Zosyn and he did very well. He will be going home with oral Augmentin 875 mg BIB X 7 days course. His renal function improved with holding of Lisinopril [ was at 10 mg daily] and also Cozaar [ was at 100 mg daily] placed on hold. He will be going home on Hydralazine 150 mg 2 times a day. He is advised to follow with PMD and will be seen in renal Clinic on 01/07/17 at 2:00 PM with me. HPI Initial Comments: Pt was admitted with Rt lower lobe Pneumonia ( Community acquired) and responded well to IV Zosyn and will be going home on Augmentin - Discharge Data Discharge Date: 12/29/16 Discharge Disposition: Home, Self-Care 01 Condition: Good - Discharge Diagnosis/Problem(s) (1) Diabetes mellitus SNOMED Code(s): 04511251 ICD Code: E11.9 - TYPE 2 DIABETES MELLITUS WITHOUT COMPLICATIONS Status: Acute Current Visit: Yes Qualifiers: Diabetes mellitus type: type 2 Diabetes mellitus complication status: with kidney complications Diabetes mellitus complication detail: with nephropathy (2) Hypertension SNOMED Code(s): 42471272 ICD Code: I10 - ESSENTIAL (PRIMARY) HYPERTENSION Status: Acute Current Visit: Yes Qualifiers: Hypertension type: essential hypertension Qualified Code(s): I10 - Essential (primary) hypertension (3) RLL pneumonia SNOMED Code(s): 665110248 ICD Code: J18.1 - LOBAR PNEUMONIA, UNSPECIFIED ORGANISM Status: Acute Current Visit: Yes Qualifiers: Pneumonia type: due to unspecified organism Qualified Code(s): J18.1 - Lobar pneumonia, unspecified organism (4) Renal failure, unspecified SNOMED Code(s): 21455928 ICD Code: N19 - UNSPECIFIED KIDNEY FAILURE Status: Acute Current Visit: Yes Qualifiers: Renal failure chronicity: acute on chronic Acute renal failure type: unspecified Chronic kidney disease stage: unspecified stage Qualified Code(s ): N17.9 - Acute kidney failure, unspecified; N18.9 - Chronic kidney disease, unspecified - Patient Instructions Diet: Diabetic Diet Activity: As Tolerated Driving: May Drive Today Showering/Bathing: May Shower Notify Provider of: Fever, Nausea and/or Vomiting Other/Special Instructions: Mr. Soto is a 61 y/O Male with Past history of Hypertension, Diabetes II ( Insulin Dependent) , CAD, Nephrotic syndrome ( Secondary to Diabetic Nephropathy, S/P Kidney Biopsy), he was admitted with Right Lower lobe Pneumonia and later also noted to have significant fluid overload and was extensively diuresed, that lead to ABHISHEK. He was treated for Pneumonia with IV Zosyn and he did very well. He will be going home with oral Augmentin 875 mg BIB X 7 days course. His renal function improved with holding of Lisinopril [ was at 10 mg daily] and also Cozaar [ was at 100 mg daily] placed on hold. He will be going home on Hydralazine 150 mg 2 times a day. His Levemir dose decreased to 30 units in AM and 30 units at night [ originally as per home medication record he was at 50 units in AM and 50 units at night]. He is advised to follow with PMD in 3-4 days and will follw in renal Clinic at [place] on 01/07/17 at 2:[address] Broderick. He will need labs CBC and renal Panel prior to visit in renal clinic. - Discharge Plan Prescriptions/Med Rec: Amoxicillin/Clavulanate K [Augmentin 875 MG/125 MG] 875 mg PO Q12H #14 tablet Docusate Sodium 100 mg PO BID PRN #60 capsule PRN Reason: Stool Softener hydrALAZINE [Apresoline] 150 mg PO Q12H #90 tablet Home Medications: Home Meds Hydrocodone/Acetaminophen [Hydrocodone-Acetaminophen 5-325] 1 tab PO TID PRN 03/25 [History] Insulin Aspart [Novolog Flexpen] 15 units SQ TIDAC 12/20/13 [History] Insulin Detemir [Levemir Flexpen] 50 units SQ QAM 12/20/13 [History] Insulin Detemir [Levemir Flexpen] 50 unit SQ BEDTIME 01/19/14 [History] Simvastatin [Zocor] 20 mg PO BEDTIME 01/19/14 [History] Aspirin [Children's Aspirin] 81 mg PO DAILY 05/15/16 [History] Clopidogrel Bisulfate [Plavix] 75 mg PO DAILY 05/15/16 [History] Ezetimibe [Zetia] 10 mg PO DAILY 05/15/16 [History] Fenofibric Acid (Choline) [Fenofibric Acid] 45 mg PO DAILY 05/15/16 [History] Furosemide 40 mg PO DAILY 05/15/16 [History] Gabapentin [Neurontin] 1,200 mg PO BEDTIME 05/15/16 [History] Gabapentin [Neurontin] 600 mg PO DAILY 05/15/16 [History] Hydrochlorothiazide 25 mg PO DAILY 05/15/16 [History] LORazepam 0.5 - 1 mg PO QID PRN 05/15/16 [History] Loratadine 10 mg PO DAILY 05/15/16 [History] Metoprolol Succinate [Toprol XL] 100 mg PO BID 05/15/16 [History] Nitroglycerin [Nitrostat] 0.4 mg SL Q5M PRN 05/15/16 [History] Terazosin HCl [Terazosin] 5 mg PO DAILY 05/15/16 [History] Zolpidem [Ambien] 10 mg PO BEDTIME PRN 05/15/16 [History] atorvaSTATin Calcium [Atorvastatin Calcium] 40 mg PO BEDTIME 05/15/16 [History] Levofloxacin [Levaquin] 500 mg PO DAILY 12/26/16 [History] Amoxicillin/Clavulanate K [Augmentin 875 MG/125 MG] 875 mg PO Q12H #14 tablet [Rx] Docusate Sodium 100 mg PO BID PRN #60 capsule 12/29/16 [Rx] Isosorbide Mononitrate [Imdur] 90 mg PO BID tab.er 12/29/16 [Rx] hydrALAZINE [Apresoline] 150 mg PO Q12H #90 tablet 12/29/16 [Rx] Patient Handouts: Chronic Kidney Disease, [id number], Heart Failure, Easy-to- Read, Community-Acquired Pneumonia, Adult, [id number] Referrals: Nathanael Harvey MD [Primary Care Provider] - - Discharge Summary/Plan Comment DC Time >30 min.: Yes Discharge Summary/Plan Comment: The pt was admitted with Rt lower lobe pneumonia and In hospital he also developed ABHISHEK with diuresis and possbly AIN from Abx. He will be going home today and will follow with PMD in 3-4 days and have follow up in Renal clinic on 01/07/17 at 2:00 PM 1. Right lower lobe pneumonia - No more fever or shortness of breath - Will go home on augmentin 875 mg PO BID X 7 days 2. 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 diabetic mellitus, now with hypoglycemia - Will continue levemir 30 units in AM and 30 units at night -Will need follow up with PMD in 3-4 days for adjustment of Levemir dose [ His home dose of Levemir 50 units in AM and 50 units at Night, but dose dose adjusted in hospital because of Hypoglycemia] 4. hypertension - on Toprol, 100 mg BID and Imdur 90 mg BID [ changed in hospita, he was on Imdur at 60 mg BID] -Will continue holding Lisinopril [ was at 10 mg daily] and hold Cozaar [ was at 100 mg daily] -Will continue Hydralazine at 150 mg 2 times a day -Check BP daily and call renal clinic with BP readings 5. diabetic neuropathy - continue gabapentin 6. chronic anemia (b12 deficiency, CKD) - no signs of bleeding 7. ABHISHEK: This is likely from use of Abx ( causing allergic AIN) and also over diuresis in the presence of TETO and ARB -Will hold Diuretis -Will hold Lissinopril ( was at 10 mg daily and hold Cozaar ( was at 100 mg daily) -Will continuet Hydralazine at 150 mg BID -Follow in renal clinic 8. Disposition: He will be going home today and will be followed in renal clinic on 01/07/17 at 2:00 PM - General Info Date of Service: 12/29/16 Admission Dx/Problem (Free Text: Pt was admitted with Right Lower lobe Pneumonia Subjective Update: Today he feeling good, No increased shortness of breath, No nausea or vomiting. He had BM yesterday. He slept well and appetite is good . Functional Status: Reports: Pain Controlled, Tolerating Diet, Ambulating, Urinating - Review of Systems General: Reports: Appetite (good). Denies: Fever, Malaise, Chills HEENT: Denies: Headaches, Sinus Congestion, Visual Changes Pulmonary: Denies: Shortness of Breath, Cough, Sputum, Wheezing Cardiovascular: Denies: Chest Pain, Dyspnea on Exertion, Lightheadedness Gastrointestinal: Denies: Abdominal Pain, Nausea, Vomiting Genitourinary: Denies: Dysuria, Frequency, Burning, Urgency, Flank Pain Musculoskeletal: Denies: Neck Pain, Shoulder Pain, Foot Pain Skin: Denies: Jaundice, Bruising, Pruritis, Rash Neurological: Denies: Confusion, Tingling, Tremors Psychiatric: Denies: Confusion, Anxiety - Patient Data Vitals - Most Recent: Last Vital Signs Temp 36.5 C 12/29/16 08:20 Pulse 69 12/29/16 10:00 Resp 20 12/29/16 08:20 BP 141/75 H 12/29/16 11:12 Pulse Ox 98 12/29/16 08:20 Weight - Most Recent: 114.033 kg I&O - Last 24 hours: Intake & Output 12/28/16 12/29/16 12/29/16 22:59 06:59 14:59 Intake Total 680 300 Balance 680 300 Lab Results - Last 24 hrs: Laboratory Results - last 24 hr 12/28/16 12/28/16 12/28/16 Range/Units 11:04 16:36 20:56 Sodium (135-145) mmol/L Potassium (3.6-5.0) mmol/L Chloride (101-111) mmol/L Carbon Dioxide (21.0-31.0) mmol/L Anion Gap BUN (7-18) mg/dL Creatinine (0.6-1.3) mg/dL Est Cr Clr Drug Dosing mL/min Estimated GFR (MDRD) Glucose (74-105) mg/dL POC Glucose 172 H 157 H 106 H (70-105) mg/dl Calcium (8.4-10.2) mg/dl 12/29/16 12/29/16 12/29/16 Range/Units 07:43 08:35 11:02 Sodium 142 (135-145) mmol/L Potassium 4.2 (3.6-5.0) mmol/L Chloride 108 (101-111) mmol/L Carbon Dioxide 23.0 (21.0-31.0) mmol/L Anion Gap 15.2 BUN 37 H (7-18) mg/dL Creatinine 3.1 H (0.6-1.3) mg/dL Est Cr Clr Drug Dosing 26.65 mL/min Estimated GFR (MDRD) 21 Glucose 141 H (74-105) mg/dL POC Glucose 92 146 H (70-105) mg/dl Calcium 8.5 (8.4-10.2) mg/dl Med Orders - Current: Current Medications Hydrocodone Bitart/Acetaminophen ([place] 325-5 Mg) 1 tab PO TID PRN PRN Reason: Pain (moderate 4-6) Last Admin: 12/27/16 09:10 Dose: 1 tab Albuterol/Ipratropium (Duoneb 3.0-0.5 Mg/3 Ml) 3 ml NEB Q6HRRT [facility] Last Admin: 12/29/16 07:11 Dose: 3 ml Amoxicillin/Clavulanate Potassium (Augmentin 875 Mg/125 Mg) 1 tab PO Q12H [facility] Last Admin: 12/29/16 09:48 Dose: 1 tab Aspirin (Aspirin) 81 mg PO DAILY [facility] Last Admin: 12/29/16 09:49 Dose: 81 mg Atorvastatin Calcium (Lipitor) 40 mg PO BEDTIME [facility] Last Admin: 12/28/16 21:11 Dose: 40 mg Bisacodyl (Dulcolax) 10 mg RECTAL BID PRN PRN Reason: Constipation Last Admin: 12/28/16 16:42 Dose: 10 mg Clopidogrel Bisulfate (Plavix) 75 mg PO DAILY [facility] Last Admin: 12/29/16 09:45 Dose: 75 mg Docusate Sodium (Colace) 100 mg PO BID [facility] Last Admin: 12/29/16 09:45 Dose: 100 mg Ezetimibe (Zetia) 10 mg PO DAILY [facility] Last Admin: 12/29/16 09:45 Dose: 10 mg Famotidine (Pepcid) 20 mg PO BID [facility] Last Admin: 12/29/16 09:47 Dose: 20 mg Furosemide (Lasix) 40 mg PO DAILY [facility] Last Admin: 12/29/16 09:43 Dose: 40 mg Gabapentin (Neurontin) 600 mg PO DAILY [facility] Last Admin: 12/29/16 09:50 Dose: 600 mg Gabapentin (Neurontin) 1,200 mg PO BEDTIME [facility] Last Admin: 12/28/16 21:11 Dose: 1,200 mg Heparin Sodium (Porcine) (Heparin Sodium) 5,000 units SUBCUT Q8H [facility] Last Admin: 12/29/16 04:36 Dose: 5,000 units Hydralazine HCl (Apresoline) 150 mg PO Q12H [facility] Last Admin: 12/29/16 10:09 Dose: 150 mg Hydrochlorothiazide (Hydrochlorothiazide) 25 mg PO DAILY [facility] Last Admin: 12/29/16 09:49 Dose: 25 mg Insulin Aspart (Novolog) 0 unit SUBCUT QIDACANDBED [facility] PRN Reason: Protocol Last Admin: 12/29/16 08:26 Dose: Not Given Insulin Aspart (Novolog) 15 unit SUBCUT TIDAC [facility] Last Admin: 12/27/16 12:08 Dose: Not Given Insulin Detemir (Levemir) 30 unit SUBCUT QAM [facility] Last Admin: 12/29/16 09:53 Dose: Not Given Insulin Detemir (Levemir) 30 unit SUBCUT BEDTIME [facility] Isosorbide Mononitrate (Imdur) 90 mg PO BID [facility] Last Admin: 12/29/16 09:48 Dose: 90 mg Loratadine (Claritin) 10 mg PO DAILY [facility] Last Admin: 12/29/16 09:44 Dose: 10 mg Lorazepam (Ativan) 0.5 mg PO QID PRN PRN Reason: Anxiety Metoprolol Succinate (Toprol Xl) 100 mg PO BID [facility] Last Admin: 12/29/16 09:44 Dose: 100 mg Nitroglycerin (Nitrostat) 0.4 mg SL Q5M PRN PRN Reason: Chest Pain Senna/Docusate Sodium (Senna Plus) 1 tab PO BID [facility] Last Admin: 12/29/16 09:46 Dose: 1 tab Simvastatin (Zocor) 20 mg PO BEDTIME [facility] Last Admin: 12/28/16 21:14 Dose: 20 mg Terazosin HCl (Hytrin) 5 mg PO DAILY [facility] Last Admin: 12/29/16 09:46 Dose: 5 mg Zolpidem Tartrate (Ambien) 10 mg PO BEDTIME PRN PRN Reason: Insomnia Last Admin: 12/28/16 23:56 Dose: 10 mg Discontinued Medications Albuterol/Ipratropium (Duoneb 3.0-0.5 Mg/3 Ml) 3 ml NEB ONETIME ONE Stop: 12/26/16 01:04 Last Admin: 12/26/16 01:09 Dose: 3 ml Amoxicillin/Clavulanate Potassium (Augmentin 875 Mg/125 Mg) 1 tab PO Q12H [facility] Last Admin: 12/28/16 17:20 Dose: Not Given Aspirin (Aspirin) 324 mg PO ONETIME ONE Stop: 12/26/16 01:24 Last Admin: 12/26/16 01:28 Dose: 324 mg Diltiazem HCl (Diltiazem) 5 mg IVPUSH ONETIME ONE Stop: 12/26/16 01:53 Last Admin: 12/26/16 02:02 Dose: 5 mg Docusate Sodium (Colace) 100 mg PO BID PRN PRN Reason: Stool Softener Last Admin: 12/27/16 09:11 Dose: 100 mg Enoxaparin Sodium (Lovenox) 40 mg SUBCUT DAILY [facility] Ergocalciferol (Vitamin D2) 50,000 units PO Q7D [facility] Furosemide (Lasix) 40 mg IVPUSH NOW ONE Stop: 12/26/16 01:22 Last Admin: 12/26/16 01:37 Dose: 40 mg Furosemide (Lasix) 40 mg IVPUSH NOW ONE Stop: 12/26/16 10:05 Last Admin: 12/26/16 11:32 Dose: 40 mg Hydralazine HCl (Apresoline) 10 mg IVPUSH ONETIME ONE Stop: 12/26/16 21:18 Last Admin: 12/26/16 21:40 Dose: 10 mg Hydralazine HCl (Apresoline) 100 mg PO Q12H [facility] Last Admin: 12/28/16 22:52 Dose: 100 mg Hydralazine HCl (Apresoline) 50 mg .XX ONETIME ONE Stop: 12/29/16 09:33 Last Admin: 12/29/16 11:22 Dose: Not Given Piperacillin Sod/Tazobactam (Sod 2.25 gm/ Sodium Chloride) 50 mls @ 100 mls/hr IV Q6H [facility] Last Admin: 12/28/16 10:18 Dose: 100 mls/hr Insulin Aspart (Novolog) 0 unit SUBCUT TIDAC [facility] Last Admin: 12/26/16 16:56 Dose: Not Given Insulin Aspart (Novolog) 0 unit SUBCUT QID [facility] PRN Reason: Protocol Last Admin: 12/26/16 13:25 Dose: Not Given Insulin Aspart (Novolog) 15 unit SUBCUT TIDAC [facility] Insulin Detemir (Levemir) 0 unit SUBCUT BEDTIME [facility] Last Admin: 12/28/16 21:15 Dose: 30 units Insulin Detemir (Levemir) 0 unit SUBCUT QAM [facility] Last Admin: 12/28/16 09:06 Dose: 30 units Isosorbide Mononitrate (Imdur) 60 mg PO BID [facility] Last Admin: 12/28/16 09:03 Dose: 60 mg Lisinopril (Prinivil) 10 mg PO DAILY [facility] Last Admin: 12/28/16 09:02 Dose: 10 mg Losartan Potassium (Cozaar) 100 mg PO DAILY [facility] Last Admin: 12/28/16 08:59 Dose: 100 mg Non-Formulary Medication (Fenofibric Acid (Choline) [Fenofibric Acid]) 45 mg PO DAILY [facility] Last Admin: 12/27/16 16:04 Dose: Not Given Ondansetron HCl (Zofran) 4 mg IV ONETIME ONE Stop: 12/26/16 02:19 Last Admin: 12/26/16 02:23 Dose: 4 mg Sodium Chloride (Saline Flush) 10 ml FLUSH ASDIRECTED PRN PRN Reason: Keep Vein Open Last Admin: 12/28/16 10:19 Dose: 10 ml - Exam Quality Assessment: Reports: DVT Prophylaxis. Denies: Supplemental Oxygen, Urine Catheter General: Reports: Alert, Oriented, Cooperative, No Acute Distress HEENT: Reports: Pupils Equal, Mucous Membr. Moist/[place] Neck: Reports: Supple, No Thyromegaly. Denies: Lymphadenopathy Lungs: Reports: Clear to Auscultation, Normal Respiratory Effort. Denies: Crackles, Wheezing Cardiovascular: Reports: Regular Rate, Regular Rhythm, Murmurs GI/Abdominal Exam: Normal Bowel Sounds, Soft, Non-Tender. No: Guarding, Rebound (Male) Exam: Deferred Rectal (Males) Exam: Deferred Back Exam: Reports: Normal Inspection, Full Range of Motion Extremities: Normal Inspection, Non-Tender, No Pedal Edema Skin: Reports: Warm, Dry, Intact Neurological: Reports: No New Focal Deficit, Normal Gait, Normal Speech Psy/Mental Status: Reports: Alert, Normal Affect, Normal Mood *Q Meaningful Use (DIS) - VTE *Q VTE Criteria *Q: - Stroke *Q Stroke Criteria *Q: - AMI *Q AMI Criteria *Q:
== END 2016-12-29 13:50 | disposition home or self-care (01) | DRG 139 ==
LOC: DL.ED 23:52 → UNDOADMIN 12-26 02:43 → DL.MS 12-26 02:43
PROVIDERS: ADMIT Internal Medicine; ATTEND Internal Medicine
DX: J18.9 Pneumonia, unspecified organism (principal); I25.10 Atherosclerotic heart disease of native coronary artery without angina pectoris; I13.0 Hypertensive heart and chronic kidney disease with heart failure and stage 1 through stage 4 chronic kidney disease, or unspecified chronic kidney disease; N17.9 Acute kidney failure, unspecified; N18.9 Chronic kidney disease, unspecified; I50.9 Heart failure, unspecified; Z95.5 Presence of coronary angioplasty implant and graft; D64.9 Anemia, unspecified; Z87.891 Personal history of nicotine dependence; E78.00 Pure hypercholesterolemia, unspecified; E78.5 Hyperlipidemia, unspecified; K21.9 Gastro-esophageal reflux disease without esophagitis; K59.09 Other constipation; N40.0 Benign prostatic hyperplasia without lower urinary tract symptoms; E11.40 Type 2 diabetes mellitus with diabetic neuropathy, unspecified; E11.21 Type 2 diabetes mellitus with diabetic nephropathy; Z79.4 Long term (current) use of insulin; Z79.82 Long term (current) use of aspirin; Z79.899 Other long term (current) drug therapy
CPT/HCPCS: 36415; 71020; 80048; 80053; 81001; 82150; 82962; 83605; 83690; 83880; 84484; 85025; 85027; 87040; 87081; 87430; 93005; 94640; 96374; 96375; 99285; A9270-GY; J0360; J1644; J1815-GY; J1940; J2405; J2543; J3490; J7050

== ENCOUNTER 2017-02-03 22:24 | Emergency (ER) | payer BC, OTHER ==
[2017-02-03] MEDS ORDERED: GI Cocktail Oral Solution 30 ML PO ONE (22:50)
[2017-02-03] MEDS ORDERED: Acetaminophen 325 MG Tab PO ONE (23:09)
[2017-02-04] MEDS ORDERED: Amoxicillin/Clavulanate K 875-125 MG Tab PO ONE (00:38)
[2017-02-04 03:26] VITALS: BP 124/60
--- NOTE | 2017-02-04 03:55 | EDM.PDOC ---
ED HPI GENERAL MEDICAL PROBLEM - General Chief Complaint: Chest Pain Stated Complaint: [facility] Time Seen by Provider: 02/03/17 22:28 Source of Information: Reports: Patient History Limitations: Reports: No Limitations - History of Present Illness INITIAL COMMENTS - FREE TEXT/NARRATIVE: ED via [facility] with report that patient had collapsed out at [facility] with hx of heart problems. Patient reported not feeling well this afternoon and went home after work feeling dizzy. reported him stumbling at home and weak, fell against wall in bathroom.Denies head ache. Recent hx of pneumonia. Patient denied feeling SOB, no cough, did have chills this past week. able to get him to car, patient seemed to have brief period of not responding while driving here, EMS called and met private vehicle. EMS did give one nitro enroute. Patient denied any episodes of chest pain. Paoints to mid epigastric for area of discomfort. reports, blood sugars low for patient in 110's, typically has been in 200's or greater. reports when he is at work he eats and drinks poorly. Onset: Today Upper Abdomen Pain Score (Numeric/FACES): 0 - Related Data Allergies Allergy/AdvReac Type Severity Reaction Status Date / Time No Known Allergies Allergy Verified 02/03/17 22:38 Home Meds: Home Meds Hydrocodone/Acetaminophen [Hydrocodone-Acetaminophen 5-325] 1 tab PO TID PRN 03/25 [History] Insulin Aspart [Novolog Flexpen] 15 units SQ TIDAC 12/20/13 [History] Insulin Detemir [Levemir Flexpen] 30 unit SQ BID 01/19/14 [History] Simvastatin [Zocor] 20 mg PO BEDTIME 01/19/14 [History] Aspirin [Children's Aspirin] 81 mg PO DAILY 05/15/16 [History] Clopidogrel Bisulfate [Plavix] 75 mg PO DAILY 05/15/16 [History] Ezetimibe [Zetia] 10 mg PO DAILY 05/15/16 [History] Fenofibric Acid (Choline) [Fenofibric Acid] 45 mg PO DAILY 05/15/16 [History] Furosemide 40 mg PO DAILY 05/15/16 [History] Gabapentin [Neurontin] 1,200 mg PO BEDTIME 05/15/16 [History] Hydrochlorothiazide 25 mg PO DAILY 05/15/16 [History] LORazepam 0.5 - 1 mg PO QID PRN 05/15/16 [History] Loratadine 10 mg PO DAILY 05/15/16 [History] Metoprolol Succinate [Toprol XL] 100 mg PO BID 05/15/16 [History] Nitroglycerin [Nitrostat] 0.4 mg SL Q5M PRN 05/15/16 [History] Terazosin HCl [Terazosin] 5 mg PO DAILY 05/15/16 [History] Zolpidem [Ambien] 10 mg PO BEDTIME PRN 05/15/16 [History] atorvaSTATin Calcium [Atorvastatin Calcium] 40 mg PO BEDTIME 05/15/16 [History] Docusate Sodium 100 mg PO BID PRN #60 capsule 12/29/16 [Rx] Isosorbide Mononitrate [Imdur] 90 mg PO BID tab.er 12/29/16 [Rx] hydrALAZINE [Apresoline] 150 mg PO Q12H #90 tablet 12/29/16 [Rx] Past Medical History HEENT History: Reports: Impaired Vision Other HEENT History: WEARS CORRECTIVE LENSES; UPPER AND LOWER DENTURE PLATE Cardiovascular History: Reports: CAD, Heart Failure, High Cholesterol, Hypertension, Stents Respiratory History: Reports: Other (See Below) Other Respiratory History: recent bronchitis Gastrointestinal History: Reports: Chronic Constipation, Colon Polyp, Gastritis , GERD Other Gastrointestinal History: gall stones Genitourinary History: Reports: BPH, Chronic Renal Insuffiency Musculoskeletal History: Reports: Fracture Other Musculoskeletal History: missing tip of pinkie on left hand Neurological History: Reports: Headaches, Chronic Psychiatric History: Reports: None, Anxiety Endocrine/Metabolic History: Reports: Diabetes, Type II Hematologic History: Reports: None Immunologic History: Reports: None Oncologic (Cancer) History: Reports: None Dermatologic History: Reports: None - Infectious Disease History Infectious Disease History: Reports: Measles - Past Surgical History Head Surgeries/Procedures: Reports: None Cardiovascular Surgical History: Reports: None, Coronary Artery Stent Respiratory Surgical History: Reports: None Male Surgical History: Reports: None Musculoskeletal Surgical History: Reports: None Other Musculoskeletal Surgeries/Procedures:: LEFT ANKLE SURGERY Oncologic Surgical History: Reports: None Dermatological Surgical History: Reports: None Social & Family History - Family History Family Medical History: Noncontributory : Reports: Renal Disease/Insufficiency Neurological: Reports: TIA Endocrine/Metabolic: Reports: Diabetes, type II - Tobacco Use Smoking Status *Q: Former Smoker Years of Tobacco use: 20 Packs/Tins Daily: 1 Used Tobacco, but Quit: No Month Tobacco Last Used: 12/2012 Second Hand Smoke Exposure: No - Caffeine Use Caffeine Use: Reports: Coffee - Alcohol Use Days Per Week of Alcohol Use: 1 Number of Drinks Per Day: 5 Total Drinks Per Week: 5 - Recreational Drug Use Recreational Drug Use: No Drug Use in Last 12 Months: No - Living Situation & Occupation Living situation: Reports: with Family, Occupation: Employed ED ROS GENERAL - Review of Systems Review Of Systems: See Below Constitutional: Reports: Chills, Weakness, Diaphoresis Respiratory: Reports: Shortness of Breath, Other (recent pneumonia, ). Denies: Cough Cardiovascular: Reports: Other. Denies: Chest Pain, Edema GI/Abdominal: Reports: No Symptoms Musculoskeletal: Reports: No Symptoms ED EXAM, GENERAL - Physical Exam Exam: See Below Exam Limited By: No Limitations General Appearance: Alert, Anxious Eye Exam: Bilateral Eye: EOMI Ears: Normal External Exam, Normal TMs Nose: Normal Inspection, Normal Mucosa Throat/Mouth: Normal Inspection Head: Atraumatic, Normocephalic Neck: Normal Inspection, Full Range of Motion. No: Carotid Bruit, Lymphadenopathy (L), Lymphadenopathy (R) Respiratory/Chest: No Respiratory Distress, Decreased Breath Sounds, Rales (RLL) . No: Wheezing, Accessory Muscle Use Cardiovascular: Normal Peripheral Pulses, Regular Rate, Rhythm, No Edema GI/Abdominal: Normal Bowel Sounds, Soft, Tender (mild mid epigastric with deep palpation). No: Distended, Guarding Rectal (Males) Exam: Normal Exam, Normal Rectal Tone Back Exam: Normal Inspection, Full Range of Motion Extremities: Normal Inspection, Normal Range of Motion, No Pedal Edema Neurological: Alert, Normal Cognition, Normal Reflexes Psychiatric: Flat Affect Skin Exam: Warm, Dry, Intact, Normal Color, No Rash Course - Vital Signs Last Recorded V/S: Last Vital Signs Temp 98.4 F 02/04/17 03:25 Pulse 63 02/04/17 03:25 Resp 14 02/04/17 03:25 BP 124/60 02/04/17 03:25 Pulse Ox 96 02/04/17 03:25 Orthostatic Blood Pressure [ 135/67 Standing] Orthostatic Blood Pressure [ 139/72 Sitting] Orthostatic Blood Pressure [ 139/65 Supine] - Orders/Labs/Meds Labs: Laboratory Tests 02/03/17 02/03/17 02/03/17 Range/Units 22:59 23:00 23:00 WBC 12.1 H (5.0-10.0) 10^3/uL RBC 3.91 L (4.6-6.2) 10^6/uL Hgb 10.4 L (14.0-18.0) g/dL Hct 32.0 L (40.0-54.0) % MCV 81.8 (80-100) fL MCH 26.6 L (27.0-34.0) pg MCHC 32.5 L (33.0-35.0) g/dL Plt Count 175 (150-450) 10^3/uL Neut % (Auto) 86.8 H (42.2-75.2) % Lymph % (Auto) 7.3 L (20.5-50.1) % Carson % (Auto) 4.6 (2-8) % Eos % (Auto) 1.1 (1.0-3.0) % Baso % (Auto) 0.2 (0.0-1.0) % Sodium 139 (135-145) mmol/L Potassium 4.6 (3.6-5.0) mmol/L Chloride 107 (101-111) mmol/L Carbon Dioxide 19.0 L (21.0-31.0) mmol/L Anion Gap 17.6 BUN 51 H (7-18) mg/dL Creatinine 3.5 H (0.6-1.3) mg/dL Est Cr Clr Drug Dosing 23.61 mL/min Estimated GFR (MDRD) 18 BUN/Creatinine Ratio 14.57 Glucose 168 H (74-105) mg/dL POC Glucose 165 H (70-105) mg/dl Lactic Acid (0.5-2.2) mmol/L Calcium 8.4 (8.4-10.2) mg/dl Total Bilirubin 0.7 (0.2-1.0) mg/dL AST 23 (10-42) IU/L ALT 17 (10-60) IU/L Alkaline Phosphatase 82 (42-121) IU/L Troponin I 0.05 H* (0.00-0.02) ng/ml B-Natriuretic Peptide 128 H (0-100) pg/ml Total Protein 6.2 L (6.7-8.2) g/dl Albumin 3.1 L (3.2-5.5) g/dl Globulin 3.1 Albumin/Globulin Ratio 1.00 Amylase 42 (28-100) U/L Urine Color (YELLOW) Urine Appearance (CLEAR) Urine pH (5.0-9.0) Ur Specific [place] (1.005-1.030) Urine Protein (NEGATIVE) Urine Glucose (UA) (NEGATIVE) Urine Ketones (NEGATIVE) Urine Occult Blood (NEGATIVE) Urine Nitrite (NEGATIVE) Urine Bilirubin (NEGATIVE) Urine Urobilinogen (0.2-1.0) mg/dL Ur Leukocyte Esterase (NEGATIVE) Urine RBC /HPF Urine WBC (0-5/HPF) /HPF Ur Epithelial Cells /HPF Urine Bacteria (0-FEW/HPF) /HPF Hyaline Casts /LPF 02/03/17 02/03/17 02/04/17 Range/Units 23:00 23:45 03:00 WBC (5.0-10.0) 10^3/uL RBC (4.6-6.2) 10^6/uL Hgb (14.0-18.0) g/dL Hct (40.0-54.0) % MCV (80-100) fL MCH (27.0-34.0) pg MCHC (33.0-35.0) g/dL Plt Count (150-450) 10^3/uL Neut % (Auto) (42.2-75.2) % Lymph % (Auto) (20.5-50.1) % Carson % (Auto) (2-8) % Eos % (Auto) (1.0-3.0) % Baso % (Auto) (0.0-1.0) % Sodium (135-145) mmol/L Potassium (3.6-5.0) mmol/L Chloride (101-111) mmol/L Carbon Dioxide (21.0-31.0) mmol/L Anion Gap BUN (7-18) mg/dL Creatinine (0.6-1.3) mg/dL Est Cr Clr Drug Dosing mL/min Estimated GFR (MDRD) BUN/Creatinine Ratio Glucose (74-105) mg/dL POC Glucose (70-105) mg/dl Lactic Acid 1.3 (0.5-2.2) mmol/L Calcium (8.4-10.2) mg/dl Total Bilirubin (0.2-1.0) mg/dL AST (10-42) IU/L ALT (10-60) IU/L Alkaline Phosphatase (42-121) IU/L Troponin I 0.05 H* (0.00-0.02) ng/ml B-Natriuretic Peptide (0-100) pg/ml Total Protein (6.7-8.2) g/dl Albumin (3.2-5.5) g/dl Globulin Albumin/Globulin Ratio Amylase (28-100) U/L Urine Color Yellow (YELLOW) Urine Appearance Clear (CLEAR) Urine pH 7.0 (5.0-9.0) Ur Specific [place] 1.020 (1.005-1.030) Urine Protein >=300 H (NEGATIVE) Urine Glucose (UA) 100 H (NEGATIVE) Urine Ketones Negative (NEGATIVE) Urine Occult Blood Small H (NEGATIVE) Urine Nitrite Negative (NEGATIVE) Urine Bilirubin Negative (NEGATIVE) Urine Urobilinogen 0.2 (0.2-1.0) mg/dL Ur Leukocyte Esterase Negative (NEGATIVE) Urine RBC 20-30 H /HPF Urine WBC 0-5 (0-5/HPF) /HPF Ur Epithelial Cells Few /HPF Urine Bacteria Few (0-FEW/HPF) /HPF Hyaline Casts Few H /LPF Meds: Medications Discontinued Medications Generic Name Dose Route Start Last Admin Trade Name Freq PRN Reason Stop Dose Admin Acetaminophen 650 mg 02/03/17 23:09 02/03/17 23:33 Tylenol PO 02/03/17 23:10 650 mg NOW ONE Administration Al Hydroxide/Mg Hydroxide 30 ml 02/03/17 22:50 02/03/17 22:56 Gi Cocktail PO 02/03/17 22:51 30 ml ONETIME ONE Administration Amoxicillin/Clavulanate Potassium 1 tab 02/04/17 00:38 02/04/17 00:50 Augmentin 875 Mg/125 Mg PO 02/04/17 00:39 1 tab ONETIME ONE Administration - Radiology Interpretation Free Text/Narrative:: CXR RLL pneumonia Head CT negative - Re-Assessments/Exams Free Text/Narrative Re-Assessment/Exam: Initial EKG and follow up unchanged from previous. Initial and follow up troponin negative. Feeling improved when temp decreased. Resting Vital stable and temp improved with tylenol. Findings discussed with patient and . Recommendl clinic follow up this week and return if symptoms worsen, temperature uncontrolled with tylenol Departure - Departure Time of Disposition: 04:25 Disposition: Home, Self-Care 01 Condition: Fair Clinical Impression: Dizziness RLL pneumonia Qualifiers: Pneumonia type: due to unspecified organism Qualified Code(s): J18.1 - Lobar pneumonia, unspecified organism Referrals: Nathanael Harvey MD [Primary Care Provider] - Forms: ED Department Discharge Additional Instructions: Continue home medication Monitor blood sugars clinic follow up on , sooner if increased weakness, difficulty breathing or chest pain augmentin 500mg/125 one twice daily for one week
--- NOTE | 2017-02-07 11:15 | EKG ---
02/03/2017 - ADAMA QUINTANILLA - This 12-lead EKG shows a normal sinus rhythm with a ventricular rate of 84. There is an interventricular conduction defect. No acute changes. [facility] /[id number]
--- NOTE | 2017-03-03 12:24 | EKG ---
02/03/2017 - ADAMA QUINTANILLA - This 12-lead EKG shows a sinus rhythm with a ventricular rate of 84. There is an interventricular conduction defect, possibly an atypical left bundle-branch. No further comments are made. [facility] /[id number]
--- NOTE | 2017-03-03 12:27 | EKG ---
02/04/2017 - ADAMA QUINTANILLA - This is the second of two 12-lead EKGs taken approximately 6 hours apart. This second EKG shows a normal sinus rhythm with a ventricular rate of 64. There is an interventricular conduction defect, possibly an atypical left bundle-branch block. There has been no significant interval change. [facility] /[id number]
== END 2017-02-04 04:15 | disposition home or self-care (01) ==
LOC: DL.ED 22:24
DX: J18.9 Pneumonia, unspecified organism (principal); R42 Dizziness and giddiness; E78.00 Pure hypercholesterolemia, unspecified; I50.9 Heart failure, unspecified; I13.0 Hypertensive heart and chronic kidney disease with heart failure and stage 1 through stage 4 chronic kidney disease, or unspecified chronic kidney disease; N18.9 Chronic kidney disease, unspecified; K21.9 Gastro-esophageal reflux disease without esophagitis; F41.9 Anxiety disorder, unspecified; E11.22 Type 2 diabetes mellitus with diabetic chronic kidney disease; Z79.4 Long term (current) use of insulin; Z95.5 Presence of coronary angioplasty implant and graft; Z79.82 Long term (current) use of aspirin; Z87.891 Personal history of nicotine dependence
CPT/HCPCS: 36415; 70450; 71010; 80053; 81001; 82150; 82272; 82962; 83605; 83880; 84484; 85025; 87040; 93005; 99285; A9270

== ENCOUNTER 2017-04-01 15:34 | Inpatient (IN) | payer BC, OTHER ==
--- NOTE | 2017-04-01 17:44 | CR ---
Clinical history: 61-year-old male chest pain. Interpretation: Abnormal. New multilobar infiltrates (consolidation respectively involving pleural-based axillary segment right upper lobe and left midlung) when compared to 03 February 2017 exam. Borderline cardiomegaly but no alveolar edema or dependent effusion. No atelectasis/collapse. No pneumothorax. CONCLUSION: Multilobar pneumonia . Close clinical correlation please. (septic emboli, metastatic disease and pulmonary infarcts are differential considerations)
--- NOTE | 2017-04-01 18:08 | EDM.PDOC ---
ED HPI GENERAL MEDICAL PROBLEM - General Chief Complaint: Cardiovascular Problem Stated Complaint: NOT FEELING GOOD. [phone] Time Seen by Provider: 04/01/17 17:20 Source of Information: Reports: Patient, RN, RN Notes Reviewed - History of Present Illness INITIAL COMMENTS - FREE TEXT/NARRATIVE: Pt presents to the ER with c/o increased SOB, cough with some production. He admits to fever and chills, and generalized weakness. He states he has not been feeling well for the past few days. Admits to some nausea but denies vomiting or diarrhea. Onset: Gradual Location: Reports: Chest Severity: Moderate Improves with: Reports: None Worsens with: Reports: None Associated Symptoms: Reports: Fever/Chills, Loss of Appetite, Nausea/Vomiting, Weakness Generalized Pain Score (Numeric/FACES): 10 - Related Data Allergies Allergy/AdvReac Type Severity Reaction Status Date / Time No Known Allergies Allergy Verified 04/01/17 18:05 Home Meds: Home Meds Hydrocodone/Acetaminophen [Hydrocodone-Acetaminophen 5-325] 1 tab PO TID PRN 03/25 [History] Insulin Aspart [Novolog Flexpen] 15 units SQ TIDAC 12/20/13 [History] Insulin Detemir [Levemir Flexpen] 30 unit SQ BID 01/19/14 [History] Aspirin [Children's Aspirin] 81 mg PO DAILY 05/15/16 [History] Clopidogrel Bisulfate [Plavix] 75 mg PO DAILY 05/15/16 [History] Ezetimibe [Zetia] 10 mg PO DAILY 05/15/16 [History] Gabapentin [Neurontin] 1,200 mg PO BEDTIME 05/15/16 [History] Hydrochlorothiazide 25 mg PO DAILY 05/15/16 [History] LORazepam 0.5 - 1 mg PO QID PRN 05/15/16 [History] Loratadine 10 mg PO DAILY 05/15/16 [History] Metoprolol Succinate [Toprol XL] 150 mg PO BID 05/15/16 [History] Nitroglycerin [Nitrostat] 0.4 mg SL Q5M PRN 05/15/16 [History] Terazosin HCl [Terazosin] 10 mg PO DAILY 05/15/16 [History] Docusate Sodium 100 mg PO BID PRN #60 capsule 12/29/16 [Rx] Isosorbide Mononitrate [Imdur] 90 mg PO BID tab.er 12/29/16 [Rx] hydrALAZINE [Apresoline] 150 mg PO Q12H #90 tablet 12/29/16 [Rx] Cefpodoxime Proxetil 200 mg PO DAILY 7 Days #7 tablet 04/05/17 [Rx] Furosemide 60 mg PO DAILY #90 tbs 04/05/17 [Rx] Past Medical History HEENT History: Reports: Impaired Vision Other HEENT History: WEARS CORRECTIVE LENSES; UPPER AND LOWER DENTURE PLATE Cardiovascular History: Reports: CAD, Heart Failure, High Cholesterol, Hypertension, Stents Respiratory History: Reports: Other (See Below) Other Respiratory History: recent bronchitis Gastrointestinal History: Reports: Chronic Constipation, Colon Polyp, Gastritis , GERD Other Gastrointestinal History: gall stones Genitourinary History: Reports: BPH, Chronic Renal Insuffiency Musculoskeletal History: Reports: Fracture Other Musculoskeletal History: missing tip of pinkie on left hand Neurological History: Reports: Headaches, Chronic Psychiatric History: Reports: None, Anxiety Endocrine/Metabolic History: Reports: Diabetes, Type II Hematologic History: Reports: None Immunologic History: Reports: None Oncologic (Cancer) History: Reports: None Dermatologic History: Reports: None - Infectious Disease History Infectious Disease History: Reports: Measles - Past Surgical History Head Surgeries/Procedures: Reports: None Cardiovascular Surgical History: Reports: None, Coronary Artery Stent Respiratory Surgical History: Reports: None Male Surgical History: Reports: None Musculoskeletal Surgical History: Reports: None Other Musculoskeletal Surgeries/Procedures:: LEFT ANKLE SURGERY Oncologic Surgical History: Reports: None Dermatological Surgical History: Reports: None Social & Family History - Family History Family Medical History: Noncontributory : Reports: Renal Disease/Insufficiency Neurological: Reports: TIA Endocrine/Metabolic: Reports: Diabetes, type II - Tobacco Use Smoking Status *Q: Former Smoker Years of Tobacco use: 30 Packs/Tins Daily: 1 Used Tobacco, but Quit: Yes Month Tobacco Last Used: unknown Second Hand Smoke Exposure: No - Caffeine Use Caffeine Use: Reports: Coffee - Alcohol Use Days Per Week of Alcohol Use: 1 Number of Drinks Per Day: 5 Total Drinks Per Week: 5 - Recreational Drug Use Recreational Drug Use: No Drug Use in Last 12 Months: No - Living Situation & Occupation Living situation: Reports: with Family, Occupation: Employed [employer] - Review of Systems Review Of Systems: ROS reveals no pertinent complaints other than HPI. ED EXAM, GENERAL - Physical Exam Exam: See Below Exam Limited By: No Limitations General Appearance: Alert, WD/WN, No Apparent Distress Eye Exam: Bilateral Eye: EOMI, Normal Inspection Ears: Normal External Exam, Hearing Grossly Normal Nose: Normal Inspection Throat/Mouth: Normal Inspection, Normal Voice, No Airway Compromise Head: Atraumatic, Normocephalic Neck: Normal Inspection, Supple, Non-Tender, Full Range of Motion Respiratory/Chest: Rhonchi (throughout) Cardiovascular: Normal Peripheral Pulses, Regular Rate, Rhythm, No Gallop, No JVD, No Rub, Systolic Murmur Peripheral Pulses: 2+: Radial (L), Radial (R), Dorsalis Pedis (L), Dorsalis Pedis (R) GI/Abdominal: Normal Bowel Sounds, Soft, Non-Tender, No Organomegaly, No Distention, No Abnormal Bruit, No Mass (Male) Exam: Deferred Rectal (Males) Exam: Deferred Back Exam: Normal Inspection, Full Range of Motion Extremities: Normal Inspection, Normal Range of Motion, Non-Tender, Normal Capillary Refill, Pedal Edema (+1) Neurological: Alert, Oriented, Normal Cognition Psychiatric: Normal Affect, Normal Mood Skin Exam: Warm, Dry, Intact, Normal Color, No Rash Lymphatic: No Adenopathy Course - Vital Signs Last Recorded V/S: Last Vital Signs Temp 98.8 F 04/05/17 07:53 Pulse 64 04/05/17 09:38 Resp 20 04/05/17 07:53 BP 134/88 04/05/17 09:39 Pulse Ox 98 04/05/17 07:53 - Orders/Labs/Meds Labs: Laboratory Tests 04/01/17 04/01/17 04/01/17 Range/Units 16:46 17:19 17:20 WBC 12.4 H (5.0-10.0) 10^3/uL RBC 3.61 L (4.6-6.2) 10^6/uL Hgb 9.5 L (14.0-18.0) g/dL Hct 29.9 L (40.0-54.0) % MCV 82.8 (80-100) fL MCH 26.3 L (27.0-34.0) pg MCHC 31.8 L (33.0-35.0) g/dL Plt Count 155 (150-450) 10^3/uL Neut % (Auto) 87.7 H (42.2-75.2) % Lymph % (Auto) 6.6 L (20.5-50.1) % [place] % (Auto) 5.1 (2-8) % Eos % (Auto) 0.3 L (1.0-3.0) % Baso % (Auto) 0.3 (0.0-1.0) % Sodium (135-145) mmol/L Potassium (3.6-5.0) mmol/L Chloride (101-111) mmol/L Carbon Dioxide (21.0-31.0) mmol/L Anion Gap BUN (7-18) mg/dL Creatinine (0.6-1.3) mg/dL Est Cr Clr Drug Dosing mL/min Estimated GFR (MDRD) BUN/Creatinine Ratio Glucose (74-105) mg/dL POC Glucose 125 H (70-105) mg/dl Lactic Acid (0.5-2.2) mmol/L Calcium (8.4-10.2) mg/dl Total Bilirubin (0.2-1.0) mg/dL AST (10-42) IU/L ALT (10-60) IU/L Alkaline Phosphatase (42-121) IU/L Troponin I (0.00-0.02) ng/ml B-Natriuretic Peptide (0-100) pg/ml Total Protein (6.7-8.2) g/dl Albumin (3.2-5.5) g/dl Globulin Albumin/Globulin Ratio Urine Color Yellow (YELLOW) Urine Appearance Clear (CLEAR) Urine pH 6.0 (5.0-9.0) Ur Specific [place] 1.020 (1.005-1.030) Urine Protein >=300 H (NEGATIVE) Urine Glucose (UA) 100 H (NEGATIVE) Urine Ketones Negative (NEGATIVE) Urine Occult Blood Moderate H (NEGATIVE) Urine Nitrite Negative (NEGATIVE) Urine Bilirubin Negative (NEGATIVE) Urine Urobilinogen 0.2 (0.2-1.0) mg/dL Ur Leukocyte Esterase Negative (NEGATIVE) Urine RBC 10-20 H /HPF Urine WBC 0-5 (0-5/HPF) /HPF Ur Epithelial Cells Rare /HPF Urine Bacteria Few (0-FEW/HPF) /HPF 04/01/17 04/01/17 04/01/17 Range/Units 17:20 17:20 18:13 WBC (5.0-10.0) 10^3/uL RBC (4.6-6.2) 10^6/uL Hgb (14.0-18.0) g/dL Hct (40.0-54.0) % MCV (80-100) fL MCH (27.0-34.0) pg MCHC (33.0-35.0) g/dL Plt Count (150-450) 10^3/uL Neut % (Auto) (42.2-75.2) % Lymph % (Auto) (20.5-50.1) % [place] % (Auto) (2-8) % Eos % (Auto) (1.0-3.0) % Baso % (Auto) (0.0-1.0) % Sodium 141 (135-145) mmol/L Potassium 4.6 (3.6-5.0) mmol/L Chloride 110 (101-111) mmol/L Carbon Dioxide 19.0 L (21.0-31.0) mmol/L Anion Gap 16.6 BUN 44 H (7-18) mg/dL Creatinine 3.5 H (0.6-1.3) mg/dL Est Cr Clr Drug Dosing 22.88 mL/min Estimated GFR (MDRD) 18 BUN/Creatinine Ratio 12.57 Glucose 141 H (74-105) mg/dL POC Glucose (70-105) mg/dl Lactic Acid 1.1 (0.5-2.2) mmol/L Calcium 8.6 (8.4-10.2) mg/dl Total Bilirubin 0.8 (0.2-1.0) mg/dL AST 22 (10-42) IU/L ALT 13 (10-60) IU/L Alkaline Phosphatase 62 (42-121) IU/L Troponin I 0.06 H* (0.00-0.02) ng/ml B-Natriuretic Peptide 1030 H (0-100) pg/ml Total Protein 6.0 L (6.7-8.2) g/dl Albumin 2.9 L (3.2-5.5) g/dl Globulin 3.1 Albumin/Globulin Ratio 0.94 Urine Color (YELLOW) Urine Appearance (CLEAR) Urine pH (5.0-9.0) Ur Specific [place] (1.005-1.030) Urine Protein (NEGATIVE) Urine Glucose (UA) (NEGATIVE) Urine Ketones (NEGATIVE) Urine Occult Blood (NEGATIVE) Urine Nitrite (NEGATIVE) Urine Bilirubin (NEGATIVE) Urine Urobilinogen (0.2-1.0) mg/dL Ur Leukocyte Esterase (NEGATIVE) Urine RBC /HPF Urine WBC (0-5/HPF) /HPF Ur Epithelial Cells /HPF Urine Bacteria (0-FEW/HPF) /HPF Meds: Medications Discontinued Medications Generic Name Dose Route Start Last Admin Trade Name Freq PRN Reason Stop Dose Admin Acetaminophen 650 mg 04/01/17 19:14 04/02/17 21:18 Tylenol PO 650 mg Q4H PRN Administration Pain (Mild 1-3)/fever Hydrocodone Bitart/Acetaminophen 1 tab 04/01/17 19:04 04/04/17 12:48 [place] 325-5 Mg PO 1 tab TID PRN Administration Pain (moderate 4-6) Aspirin 81 mg 04/02/17 09:00 04/05/17 09:36 Aspirin PO 81 mg DAILY ELVI Administration Clopidogrel Bisulfate 75 mg 04/02/17 09:00 04/05/17 09:36 Plavix PO 75 mg DAILY ELVI Administration Docusate Sodium 100 mg 04/01/17 19:04 04/04/17 21:27 Colace PO 100 mg BID PRN Administration Stool Softener Ezetimibe 10 mg 04/02/17 09:00 04/05/17 09:36 Zetia PO 10 mg DAILY ELVI Administration Furosemide 40 mg 04/02/17 09:00 04/02/17 08:59 Lasix PO 40 mg DAILY ELVI Administration Furosemide 40 mg 04/02/17 14:00 04/03/17 14:55 Lasix PO Not Given BIDDIURETIC ELVI Furosemide 20 mg 04/03/17 14:04 04/03/17 14:29 Lasix PO 04/03/17 14:05 20 mg ONETIME ONE Administration Furosemide 60 mg 04/04/17 09:00 04/05/17 09:36 Lasix PO 60 mg DAILY ELVI Administration Gabapentin 1,200 mg 04/01/17 21:00 04/04/17 21:28 Neurontin PO 1,200 mg BEDTIME ELVI Administration Heparin Sodium (Porcine) 5,000 units 04/01/17 22:00 04/05/17 14:05 Heparin Sodium SUBCUT Not Given Q8HR [facility] Hydralazine HCl 150 mg 04/01/17 21:00 04/05/17 09:39 Apresoline PO 150 mg BID [facility] Administration Hydrochlorothiazide 25 mg 04/02/17 09:00 04/05/17 09:36 Hydrochlorothiazide PO 25 mg DAILY [facility] Administration Azithromycin 500 mg/ Sodium 250 mls @ 250 mls/hr 04/01/17 21:00 04/04/17 21: 19 Chloride IV 250 mls/hr Q24H [facility] Administration Ceftriaxone Sodium 1 gm/ 50 mls @ 100 mls/hr 04/01/17 20:00 04/04/17 20:22 Sodium Chloride IV 100 mls/hr Q24H [facility] Administration Insulin Aspart 15 unit 04/02/17 08:00 [facility] Insulin Aspart 0 unit 04/02/17 08:00 04/05/17 12:36 Novolog SUBCUT Not Given [facility] Protocol Insulin Detemir 30 unit 04/01/17 21:00 04/04/17 09:19 Levemir SUBCUT 30 units BID [facility] Administration Insulin Detemir 26 unit 04/04/17 21:00 04/05/17 09:40 Levemir SUBCUT 26 units BID [facility] Administration Isosorbide Mononitrate 90 mg 04/01/17 21:00 04/05/17 09:37 Imdur PO 90 mg BID [facility] Administration Lorazepam 0.5 mg 04/01/17 19:45 04/05/17 04:25 Ativan PO 0.5 mg Q6H PRN Administration ANXIETY Metoprolol Succinate 150 mg 04/01/17 21:00 04/05/17 09:38 Toprol Xl PO 150 mg BID [facility] Administration Nitroglycerin 0.4 mg 04/01/17 19:04 Nitrostat SL Q5M PRN Chest Pain Ondansetron HCl 4 mg 04/01/17 19:14 Zofran Odt PO Q6H PRN nausea, able to take PO Pantoprazole Sodium 40 mg 04/03/17 17:29 04/03/17 17:47 Protonix PO 04/03/17 17:30 40 mg ONETIME ONE Administration Pantoprazole Sodium 40 mg 04/04/17 06:00 04/05/17 06:15 Protonix PO 40 mg ACBREAKFAST ELVI Administration Sodium Chloride 10 ml 04/01/17 17:31 04/05/17 09:43 Saline Flush FLUSH 10 ml ASDIRECTED PRN Administration Keep Vein Open Sodium Chloride 10 ml 04/01/17 19:14 Saline Flush FLUSH ASDIRECTED PRN Keep Vein Open Terazosin HCl 10 mg 04/02/17 09:00 04/05/17 09:39 Hytrin PO 10 mg DAILY ELVI Administration Zolpidem Tartrate 5 mg 04/01/17 19:14 04/04/17 22:43 Ambien PO 5 mg BEDTIME PRN Administration Sleep Departure - Departure Time of Disposition: 18:07 Disposition: Admitted As Inpatient 66 Condition: Fair Clinical Impression: Pneumonia Qualifiers: Pneumonia type: due to unspecified organism Laterality: bilateral Lung location : unspecified part of lung Qualified Code(s): J18.9 - Pneumonia, unspecified organism
[2017-04-01] MEDS ORDERED: Nitroglycerin 0.4 MG Tab.SL SL PRN (19:04)
[2017-04-01] MEDS ORDERED: Docusate Sodium 100 MG Cap PO PRN (19:04)
[2017-04-01] MEDS ORDERED: Ondansetron 4 MG Tab.DIS PO PRN (19:14)
[2017-04-01] MEDS ORDERED: Sodium Chloride 0.9% 10 ML Syringe FLUSH PRN (19:14)
--- NOTE | 2017-04-01 19:22 | PCM.HP ---
H&P History of Present Illness - General Date of Service: 04/01/17 Admit Problem/Dx: Admission Diagnosis/Problem Admission Diagnosis/Problem Pneumonia Source of Information: Patient, Family, Provider - History of Present Illness Initial Comments - Free Text/Narative: The patient is a 61-year-old gentleman who presented with the week history of not feeling well He was getting increasing short of breath associated with subjective fever since 31 March. There is no sick contact in the family. He has a dry cough but no associated sputum. He was complaining of chest tightness along with the coughing. Shortness of breath is worse with activity, better with rest. The patient had constipation but then had some bowel movement on 01 April Came into the emergency room with the complaints of cough shortness of breath chest tightness. Generalized Pain Score (Numeric/FACES): 10 - Related Data Allergies/Adverse Reactions: Allergies Allergy/AdvReac Type Severity Reaction Status Date / Time No Known Allergies Allergy Verified 04/01/17 18:05 Home Medications: Home Meds Hydrocodone/Acetaminophen [Hydrocodone-Acetaminophen 5-325] 1 tab PO TID PRN 03/25 [History] Insulin Aspart [Novolog Flexpen] 15 units SQ TIDAC 12/20/13 [History] Insulin Detemir [Levemir Flexpen] 30 unit SQ BID 01/19/14 [History] Aspirin [Children's Aspirin] 81 mg PO DAILY 05/15/16 [History] Clopidogrel Bisulfate [Plavix] 75 mg PO DAILY 05/15/16 [History] Ezetimibe [Zetia] 10 mg PO DAILY 05/15/16 [History] Furosemide 40 mg PO DAILY 05/15/16 [History] Gabapentin [Neurontin] 1,200 mg PO BEDTIME 05/15/16 [History] Hydrochlorothiazide 25 mg PO DAILY 05/15/16 [History] LORazepam 0.5 - 1 mg PO QID PRN 05/15/16 [History] Loratadine 10 mg PO DAILY 05/15/16 [History] Metoprolol Succinate [Toprol XL] 150 mg PO BID 05/15/16 [History] Nitroglycerin [Nitrostat] 0.4 mg SL Q5M PRN 05/15/16 [History] Terazosin HCl [Terazosin] 10 mg PO DAILY 05/15/16 [History] Docusate Sodium 100 mg PO BID PRN #60 capsule 12/29/16 [Rx] Isosorbide Mononitrate [Imdur] 90 mg PO BID tab.er 12/29/16 [Rx] hydrALAZINE [Apresoline] 150 mg PO Q12H #90 tablet 12/29/16 [Rx] Past Medical History HEENT History: Reports: Impaired Vision Other HEENT History: WEARS CORRECTIVE LENSES; UPPER AND LOWER DENTURE PLATE Cardiovascular History: Reports: CAD, Heart Failure, High Cholesterol, Hypertension, Stents Respiratory History: Reports: Other (See Below) Other Respiratory History: recent bronchitis Gastrointestinal History: Reports: Chronic Constipation, Colon Polyp, Gastritis , GERD Other Gastrointestinal History: gall stones Genitourinary History: Reports: BPH, Chronic Renal Insuffiency Musculoskeletal History: Reports: Fracture Other Musculoskeletal History: missing tip of pinkie on left hand Neurological History: Reports: Headaches, Chronic Psychiatric History: Reports: None, Anxiety Endocrine/Metabolic History: Reports: Diabetes, Type II Hematologic History: Reports: None Immunologic History: Reports: None Oncologic (Cancer) History: Reports: None Dermatologic History: Reports: None - Infectious Disease History Infectious Disease History: Reports: Measles - Past Surgical History Head Surgeries/Procedures: Reports: None Cardiovascular Surgical History: Reports: None, Coronary Artery Stent Respiratory Surgical History: Reports: None Male Surgical History: Reports: None Musculoskeletal Surgical History: Reports: None Other Musculoskeletal Surgeries/Procedures:: LEFT ANKLE SURGERY Oncologic Surgical History: Reports: None Dermatological Surgical History: Reports: None Social & Family History - Family History Family Medical History: Noncontributory : Reports: Renal Disease/Insufficiency Neurological: Reports: TIA Endocrine/Metabolic: Reports: Diabetes, type II - Tobacco Use Smoking Status *Q: Former Smoker Years of Tobacco use: 30 Packs/Tins Daily: 1 Used Tobacco, but Quit: Yes Month Tobacco Last Used: unknown Second Hand Smoke Exposure: No - Caffeine Use Caffeine Use: Reports: Coffee - Alcohol Use Days Per Week of Alcohol Use: 1 Number of Drinks Per Day: 5 Total Drinks Per Week: 5 - Recreational Drug Use Recreational Drug Use: No Drug Use in Last 12 Months: No - Living Situation & Occupation Living situation: Reports: with Family, Occupation: Employed H&P Review of Systems - Review of Systems: Review Of Systems: See Below General: Reports: Fever, Chills, Malaise, Weakness Pulmonary: Reports: Shortness of Breath, Cough. Denies: Wheezing, Sputum Cardiovascular: Reports: Chest Pain, Edema. Denies: Palpitations, Syncope Gastrointestinal: Denies: Abdominal Pain Genitourinary: Denies: Dysuria Psychiatric: Denies: Confusion Exam - Exam Exam: See Below - Vital Signs Vital Signs: Last Vital Signs Temp 39.3 C H 04/01/17 19:02 Pulse 92 04/01/17 19:02 Resp 22 H 04/01/17 19:02 BP 192/80 H 04/01/17 19:02 Pulse Ox 96 04/01/17 19:02 Weight: 116.755 kg - Exam General: Alert, Oriented Neck: Supple Lungs: Normal Respiratory Effort, Rhonchi (b/l) Cardiovascular: Regular Rate, Regular Rhythm, Systolic Murmur Extremities: Pedal Edema (1+ b/l) - Patient Data Lab Results Last 24 hrs: Chest x-ray per my reading shows right upper lobe and left middle lung infiltrate Result Diagrams: 04/01/17 17:20 04/01/17 17:20 *Q Meaningful Use (ADM) - VTE *Q VTE Criteria *Q: - Stroke *Q Stroke Criteria *Q: - AMI *Q AMI Criteria *Q: - Problem List (1) Pneumonia SNOMED Code(s): 347900432 ICD Code: J18.9 - PNEUMONIA, UNSPECIFIED ORGANISM Status: Acute Current Visit: Yes Qualifiers: Pneumonia type: due to unspecified organism Laterality: bilateral Lung location: unspecified part of lung Qualified Code(s): J18.9 - Pneumonia, unspecified organism (2) Acute exacerbation of CHF (congestive heart failure) SNOMED Code(s): 35917256 ICD Code: I50.9 - HEART FAILURE, UNSPECIFIED Status: Acute Current Visit : No Qualifiers: Congestive heart failure type: unspecified congestive heart failure type Qualified Code(s): I50.9 - Heart failure, unspecified (3) Diabetes mellitus SNOMED Code(s): 29620979 ICD Code: E11.9 - TYPE 2 DIABETES MELLITUS WITHOUT COMPLICATIONS Status: Acute Current Visit: No Qualifiers: Diabetes mellitus type: type 2 Diabetes mellitus complication status: with kidney complications Diabetes mellitus complication detail: with nephropathy (4) Hypertension SNOMED Code(s): 96960641 ICD Code: I10 - ESSENTIAL (PRIMARY) HYPERTENSION Status: Acute Current Visit: No Qualifiers: Hypertension type: essential hypertension Qualified Code(s): I10 - Essential (primary) hypertension Problem List Initiated/Reviewed/Updated: Yes Orders Last 24hrs: Active Orders 24 hr Category Date Time Status Patient Status [ADT] Routine ADT 04/01/17 19:14 Ordered Antiembolic Devices [RC] PER UNIT ROUTINE Care 04/01/17 19:16 Ordered Glucose [Blood Glucose Check, Bedside] [RC] QIDACANDBED Care 04/01/17 19:12 Ordered Oxygen Therapy [RC] PRN Care 04/01/17 19:14 Ordered Telemetry Monitoring [Cardiac Monitoring] [RC] . Care 04/01/17 19:13 Ordered DIRECTED Up With Assistance [RC] ASDIRECTED Care 04/01/17 19:14 Ordered VTE/DVT Education [RC] PER UNIT ROUTINE Care 04/01/17 19:14 Ordered Vital Signs [RC] Q4H Care 04/01/17 19:14 Ordered 2 Gram Sodium Diet [DIET] Diet 04/01/17 Breakfast Ordered B-TYPE NATRIURETIC PEPTIDE,BNP [CHEM] AM Lab 04/03/17 05:11 Ordered BASIC METABOLIC PANEL,BMP [CHEM] AM Lab 04/02/17 05:15 Ordered CBC WITH AUTO DIFF [HEME] AM Lab 04/02/17 05:15 Ordered CULTURE SPUTUM + SMEAR [RM] Routine Lab 04/01/17 19:02 Uncollected TROPONIN I [CHEM] AM Lab 04/02/17 05:11 Ordered Acetaminophen [Tylenol] Med 04/01/17 19:14 Ordered 650 mg PO Q4H PRN Acetaminophen/HYDROcodone [Gilman 325-5 MG] Med 04/01/17 19:04 Ordered 1 tab PO TID PRN Aspirin Med 04/02/17 09:00 Ordered 81 mg PO DAILY Azithromycin [Zithromax] 500 mg Med 04/01/17 19:15 Ordered Sodium Chloride 0.9% [Normal Saline] 250 ml IV Q24H Clopidogrel [Plavix] Med 04/02/17 09:00 Ordered 75 mg PO DAILY Docusate Sodium [Colace] Med 04/01/17 19:04 Ordered 100 mg PO BID PRN Ezetimibe [Zetia] Med 04/02/17 09:00 Ordered 10 mg PO DAILY Furosemide [Lasix] Med 04/02/17 09:00 Ordered 40 mg PO DAILY Gabapentin Med 04/01/17 21:00 Ordered 1,200 mg PO BEDTIME Heparin Sodium Med 04/01/17 22:00 Ordered 5,000 units SUBCUT Q8HR Hydrochlorothiazide Med 04/02/17 09:00 Ordered 25 mg PO DAILY Insulin Aspart [NovoLOG] Med 04/02/17 08:00 Ordered 15 unit SUBCUT TIDAC Insulin Aspart [NovoLOG] Med 04/02/17 08:00 Ordered See Protocol SUBCUT TIDAC Insulin Detemir [Levemir] Med 04/01/17 21:00 Ordered 30 unit SUBCUT BID Isosorbide Mononitrate [Imdur] Med 04/01/17 21:00 Ordered 90 mg PO BID LORazepam [Ativan] Med 04/01/17 19:04 Ordered 0.5 mg PO Q6H PRN Metoprolol Succinate [Toprol XL] Med 04/01/17 21:00 Ordered 150 mg PO BID Nitroglycerin [Nitrostat] Med 04/01/17 19:04 Ordered 0.4 mg SL Q5M PRN Ondansetron [Zofran ODT] Med 04/01/17 19:14 Ordered 4 mg PO Q6H PRN Sodium Chloride 0.9% [Saline Flush] Med 04/01/17 19:14 Ordered 10 ml FLUSH ASDIRECTED PRN Terazosin [Hytrin] Med 04/02/17 09:00 Ordered 10 mg PO DAILY Zolpidem [Ambien] Med 04/01/17 19:14 Ordered 5 mg PO BEDTIME PRN cefTRIAXone [Rocephin] 1 gm Med 04/01/17 19:15 Ordered Sodium Chloride 0.9% [Normal Saline] 50 ml IV Q24H hydrALAZINE [Apresoline] Med 04/01/17 21:00 Ordered 150 mg PO BID Antiembolic Hose [OM.PC] Per Unit Routine Oth 04/01/17 19:15 Ordered Saline Lock Insert [OM.PC] Routine Oth 04/01/17 19:14 Ordered Resuscitation Status Routine Resus Stat 04/01/17 19:14 Ordered Medication Orders Acetaminophen (Tylenol) 650 mg PO Q4H PRN PRN Reason: Pain (Mild 1-3)/fever Hydrocodone Bitart/Acetaminophen (Gilman 325-5 Mg) 1 tab PO TID PRN PRN Reason: Pain (moderate 4-6) Aspirin (Aspirin) 81 mg PO DAILY [facility] Clopidogrel Bisulfate (Plavix) 75 mg PO DAILY [facility] Docusate Sodium (Colace) 100 mg PO BID PRN PRN Reason: Stool Softener Ezetimibe (Zetia) 10 mg PO DAILY [facility] Furosemide (Lasix) 40 mg PO DAILY [facility] Heparin Sodium (Porcine) (Heparin Sodium) 5,000 units SUBCUT Q8HR [facility] Hydralazine HCl (Apresoline) 150 mg PO BID [facility] Hydrochlorothiazide (Hydrochlorothiazide) 25 mg PO DAILY [facility] Azithromycin 500 mg/ Sodium (Chloride) 250 mls @ 250 mls/hr IV Q24H [facility] Ceftriaxone Sodium 1 gm/ (Sodium Chloride) 50 mls @ 100 mls/hr IV Q24H [facility] Insulin Aspart (Novolog) 15 unit SUBCUT TIDAC [facility] Insulin Aspart (Novolog) 0 unit SUBCUT TIDAC [facility] PRN Reason: Protocol Insulin Detemir (Levemir) 30 unit SUBCUT BID [facility] Isosorbide Mononitrate (Imdur) 90 mg PO BID [facility] Lorazepam (Ativan) 0.5 mg PO Q6H PRN PRN Reason: Anxiety Nitroglycerin (Nitrostat) 0.4 mg SL Q5M PRN PRN Reason: Chest Pain Non-Formulary Medication (Gabapentin) 1,200 mg PO BEDTIME [facility] Non-Formulary Medication (Metoprolol Succinate [Toprol Xl]) 150 mg PO BID [facility] Ondansetron HCl (Zofran Odt) 4 mg PO Q6H PRN PRN Reason: nausea, able to take PO Sodium Chloride (Saline Flush) 10 ml FLUSH ASDIRECTED PRN PRN Reason: Keep Vein Open Sodium Chloride (Saline Flush) 10 ml FLUSH ASDIRECTED PRN PRN Reason: Keep Vein Open Terazosin HCl (Hytrin) 10 mg PO DAILY [facility] Zolpidem Tartrate (Ambien) 5 mg PO BEDTIME PRN PRN Reason: Sleep Assessment/Plan Comment:: The patient is a 61-year-old gentleman who presented with the week history of not feeling well He was getting increasing short of breath associated with subjective fever since 31 March. There is no sick contact in the family. He has a dry cough but no associated sputum. He was complaining of chest tightness along with the coughing. Shortness of breath is worse with activity, better with rest. The patient had constipation but then had some bowel movement on 01 April Came into the emergency room with the complaints of cough shortness of breath chest tightness. #1 pneumonia The patient has leukocytosis, fever He has a normal lactic acid Will obtain blood cultures, sputum culture Treat for community-acquired pneumonia with azithromycin and ceftriaxone #2 acute on chronic diastolic congestive heart failure We will continue diuretics if the fever goes down consider increasing the diuretics but for now I will not push too hard. #3 chest pain, tightness Likely related to infection Nevertheless the patient has significant history of coronary artery disease Monitor on telemetry, repeat troponins. The mild elevation in troponin likely relates to congestive heart failure, chronic coronary artery disease and chronic renal failure combination. 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
[2017-04-01] MEDS: cefTRIAXone 1 GM in Sodium Chloride 0.9% 50 ML IV SCH (19:47)
[2017-04-01] MEDS: Sodium Chloride 0.9% 10 ML Syringe FLUSH PRN (20:19)
[2017-04-01] MEDS: Azithromycin 500 MG in Sodium Chloride 0.9% 250 ML IV SCH (20:20)
[2017-04-01] MEDS: Acetaminophen/HYDROcodone 325-5 MG Tab PO PRN (20:26)
[2017-04-01] MEDS: Insulin Detemir 100 Units/ML 3 ML Pen SUBCUT SCH (20:54)
[2017-04-01] MEDS: Heparin Sodium 5,000 Units/ML Vial SUBCUT SCH ×2 (20:55→21:50)
[2017-04-01] MEDS: hydrALAZINE 25 MG Tab PO SCH (21:31)
[2017-04-01] MEDS: Isosorbide Mononitrate 30 MG Tab.ER PO SCH (21:32)
[2017-04-01] MEDS: Gabapentin 400 MG Cap PO SCH (21:33)
[2017-04-01] MEDS: Metoprolol Succinate 50 MG Tab.ER PO SCH (21:33)
[2017-04-02] MEDS: Heparin Sodium 5,000 Units/ML Vial SUBCUT SCH ×3 (06:04→22:01)
[2017-04-02] MEDS ORDERED: Insulin Aspart 100 Units/ML 3 ML Pen SUBCUT SCH (08:00)
[2017-04-02] MEDS: Insulin Aspart 100 Units/ML 3 ML Pen SUBCUT SCH ×3 (08:48→17:05)
[2017-04-02] MEDS: Aspirin 81 MG Tab.Chew PO SCH (09:00)
[2017-04-02] MEDS ORDERED: Furosemide 40 MG Tab PO SCH (09:00)
[2017-04-02] MEDS: Acetaminophen 325 MG Tab PO PRN ×3 (09:00→21:18)
[2017-04-02] MEDS: Clopidogrel 75 MG Tab PO SCH (09:03)
[2017-04-02] MEDS: hydrALAZINE 25 MG Tab PO SCH ×2 (09:14→20:24)
[2017-04-02] MEDS: Terazosin 5 MG Cap PO SCH (09:15)
[2017-04-02] MEDS: Hydrochlorothiazide 25 MG Tab PO SCH (09:15)
[2017-04-02] MEDS: Isosorbide Mononitrate 30 MG Tab.ER PO SCH ×2 (09:16→20:27)
[2017-04-02] MEDS: Metoprolol Succinate 50 MG Tab.ER PO SCH ×2 (09:16→20:26)
[2017-04-02] MEDS: Ezetimibe 10 MG Tab PO SCH (09:17)
[2017-04-02] MEDS: Insulin Detemir 100 Units/ML 3 ML Pen SUBCUT SCH ×2 (09:22→21:19)
--- NOTE | 2017-04-02 11:23 | PCM.PN ---
- General Info Date of Service: 04/02/17 Admission Dx/Problem (Free Text): Admission Diagnosis/Problem Admission Diagnosis/Problem Pneumonia Subjective Update: Overnight continue to have fever. Associated with cough but no sputum. Still has moderate shortness of breath. On 1-2 L nasal cannula oxygen. - Review of Systems General: Reports: Fever, Weakness Pulmonary: Reports: Shortness of Breath Cardiovascular: Reports: Edema (Trace bilateral). Denies: Chest Pain Gastrointestinal: Denies: Abdominal Pain Genitourinary: Denies: Dysuria Neurological: Denies: Confusion - Patient Data Vitals - Most Recent: Last Vital Signs Temp 37.6 C 04/02/17 11:16 Pulse 57 L 04/02/17 11:16 Resp 20 04/02/17 11:16 BP 98/45 L 04/02/17 11:16 Pulse Ox 98 04/02/17 11:16 Weight - Most Recent: 115.757 kg I&O - Last 24 Hours: Intake & Output 04/01/17 04/02/17 04/02/17 22:59 06:59 14:59 Intake Total 300 200 Output Total 240 Balance 300 -40 Lab Results Last 24 Hours: Laboratory Results - last 24 hr 04/01/17 04/02/17 04/02/17 Range/Units 19:58 06:05 06:05 WBC 12.0 H (5.0-10.0) 10^3/uL RBC 3.16 L (4.6-6.2) 10^6/uL Hgb 8.3 L (14.0-18.0) g/dL Hct 26.6 L (40.0-54.0) % MCV 84.2 (80-100) fL MCH 26.3 L (27.0-34.0) pg MCHC 31.2 L (33.0-35.0) g/dL Plt Count 136 L (150-450) 10^3/uL Neut % (Auto) 76.8 H (42.2-75.2) % Lymph % (Auto) 15.1 L (20.5-50.1) % [place] % (Auto) 7.4 (2-8) % Eos % (Auto) 0.5 L (1.0-3.0) % Baso % (Auto) 0.2 (0.0-1.0) % Sodium 140 (135-145) mmol/L Potassium 4.6 (3.6-5.0) mmol/L Chloride 112 H (101-111) mmol/L Carbon Dioxide 21.0 (21.0-31.0) mmol/L Anion Gap 11.6 BUN 49 H (7-18) mg/dL Creatinine 3.8 H (0.6-1.3) mg/dL Est Cr Clr Drug Dosing 21.74 mL/min Estimated GFR (MDRD) 16 Glucose 106 H (74-105) mg/dL POC Glucose 113 H (70-105) mg/dl Calcium 8.0 L (8.4-10.2) mg/dl Troponin I 0.08 H* (0.00-0.02) ng/ml 04/02/17 Range/Units 07:46 WBC (5.0-10.0) 10^3/uL RBC (4.6-6.2) 10^6/uL Hgb (14.0-18.0) g/dL Hct (40.0-54.0) % MCV (80-100) fL MCH (27.0-34.0) pg MCHC (33.0-35.0) g/dL Plt Count (150-450) 10^3/uL Neut % (Auto) (42.2-75.2) % Lymph % (Auto) (20.5-50.1) % [place] % (Auto) (2-8) % Eos % (Auto) (1.0-3.0) % Baso % (Auto) (0.0-1.0) % Sodium (135-145) mmol/L Potassium (3.6-5.0) mmol/L Chloride (101-111) mmol/L Carbon Dioxide (21.0-31.0) mmol/L Anion Gap BUN (7-18) mg/dL Creatinine (0.6-1.3) mg/dL Est Cr Clr Drug Dosing mL/min Estimated GFR (MDRD) Glucose (74-105) mg/dL POC Glucose 92 (70-105) mg/dl Calcium (8.4-10.2) mg/dl Troponin I (0.00-0.02) ng/ml Med Orders - Current: Current Medications Acetaminophen (Tylenol) 650 mg PO Q4H PRN PRN Reason: Pain (Mild 1-3)/fever Last Admin: 04/02/17 09:00 Dose: 650 mg Hydrocodone Bitart/Acetaminophen ([place] 325-5 Mg) 1 tab PO TID PRN PRN Reason: Pain (moderate 4-6) Last Admin: 04/01/17 20:26 Dose: 1 tab Aspirin (Aspirin) 81 mg PO DAILY [facility] Last Admin: 04/02/17 09:00 Dose: 81 mg Clopidogrel Bisulfate (Plavix) 75 mg PO DAILY [facility] Last Admin: 04/02/17 09:03 Dose: 75 mg Docusate Sodium (Colace) 100 mg PO BID PRN PRN Reason: Stool Softener Ezetimibe (Zetia) 10 mg PO DAILY [facility] Last Admin: 04/02/17 09:17 Dose: 10 mg Furosemide (Lasix) 40 mg PO BID [facility] Gabapentin (Neurontin) 1,200 mg PO BEDTIME [facility] Last Admin: 04/01/17 21:33 Dose: 1,200 mg Heparin Sodium (Porcine) (Heparin Sodium) 5,000 units SUBCUT Q8HR [facility] Last Admin: 04/02/17 06:04 Dose: 5,000 units Hydralazine HCl (Apresoline) 150 mg PO BID [facility] Last Admin: 04/02/17 09:14 Dose: 150 mg Hydrochlorothiazide (Hydrochlorothiazide) 25 mg PO DAILY [facility] Last Admin: 04/02/17 09:15 Dose: 25 mg Azithromycin 500 mg/ Sodium (Chloride) 250 mls @ 250 mls/hr IV Q24H [facility] Last Admin: 04/01/17 20:20 Dose: 250 mls/hr Ceftriaxone Sodium 1 gm/ (Sodium Chloride) 50 mls @ 100 mls/hr IV Q24H [facility] Last Admin: 04/01/17 19:47 Dose: 100 mls/hr Insulin Aspart (Novolog) 0 unit SUBCUT TIDAC [facility] PRN Reason: Protocol Last Admin: 04/02/17 08:48 Dose: Not Given Insulin Detemir (Levemir) 30 unit SUBCUT BID [facility] Last Admin: 04/02/17 09:22 Dose: 30 units Isosorbide Mononitrate (Imdur) 90 mg PO BID [facility] Last Admin: 04/02/17 09:16 Dose: 90 mg Lorazepam (Ativan) 0.5 mg PO Q6H PRN PRN Reason: ANXIETY Metoprolol Succinate (Toprol Xl) 150 mg PO BID [facility] Last Admin: 04/02/17 09:16 Dose: 150 mg Nitroglycerin (Nitrostat) 0.4 mg SL Q5M PRN PRN Reason: Chest Pain Ondansetron HCl (Zofran Odt) 4 mg PO Q6H PRN PRN Reason: nausea, able to take PO Sodium Chloride (Saline Flush) 10 ml FLUSH ASDIRECTED PRN PRN Reason: Keep Vein Open Last Admin: 04/01/17 20:19 Dose: 10 ml Sodium Chloride (Saline Flush) 10 ml FLUSH ASDIRECTED PRN PRN Reason: Keep Vein Open Terazosin HCl (Hytrin) 10 mg PO DAILY [facility] Last Admin: 04/02/17 09:15 Dose: 10 mg Zolpidem Tartrate (Ambien) 5 mg PO BEDTIME PRN PRN Reason: Sleep Discontinued Medications Furosemide (Lasix) 40 mg PO DAILY [facility] Last Admin: 04/02/17 08:59 Dose: 40 mg Insulin Aspart (Novolog) 15 unit SUBCUT TIDAC [facility] - Exam Quality Assessment: Supplemental Oxygen General: Alert, Oriented Lungs: Normal Respiratory Effort, Decreased Breath Sounds Cardiovascular: Regular Rate, Regular Rhythm GI/Abdominal Exam: Normal Bowel Sounds, Soft, Non-Tender Extremities: Pedal Edema (Bilateral trace) Skin: Warm, Dry Neurological: No New Focal Deficit Psy/Mental Status: Alert, Normal Affect, Normal Mood - Problem List & Annotations (1) Pneumonia SNOMED Code(s): 350205487 Code(s): J18.9 - PNEUMONIA, UNSPECIFIED ORGANISM Status: Acute Current Visit: Yes Qualifiers: Pneumonia type: due to unspecified organism Laterality: bilateral Lung location: unspecified part of lung Qualified Code(s): J18.9 - Pneumonia, unspecified organism (2) Acute exacerbation of CHF (congestive heart failure) SNOMED Code(s): 26616694 Code(s): I50.9 - HEART FAILURE, UNSPECIFIED Status: Acute Current Visit: No Qualifiers: Congestive heart failure type: unspecified congestive heart failure type Qualified Code(s): I50.9 - Heart failure, unspecified (3) Diabetes mellitus SNOMED Code(s): 06328507 Code(s): E11.9 - TYPE 2 DIABETES MELLITUS WITHOUT COMPLICATIONS Status: Acute Current Visit: No Qualifiers: Diabetes mellitus type: type 2 Diabetes mellitus complication status: with kidney complications Diabetes mellitus complication detail: with nephropathy (4) Hypertension SNOMED Code(s): 97086649 Code(s): I10 - ESSENTIAL (PRIMARY) HYPERTENSION Status: Acute Current Visit: No Qualifiers: Hypertension type: essential hypertension Qualified Code(s): I10 - Essential (primary) hypertension - Problem List Review Problem List Initiated/Reviewed/Updated: Yes - My Orders Last 24 Hours: My Active Orders 04/02/17 21:00 Furosemide [Lasix] 40 mg PO BID 04/03/17 05:15 BASIC METABOLIC PANEL,BMP [CHEM] AM CBC WITH AUTO DIFF [HEME] AM - Plan Plan:: The patient is a 61-year-old gentleman who presented with the week history of not feeling well He was getting increasing short of breath associated with subjective fever since 31 March. There is no sick contact in the family. He has a dry cough but no associated sputum. He was complaining of chest tightness along with the coughing. Shortness of breath is worse with activity, better with rest. The patient had constipation but then had some bowel movement on 01 April Came into the emergency room with the complaints of cough shortness of breath chest tightness. #0 acute hypoxemic respiratory failure Due to pneumonia Supplement oxygen as needed #1 pneumonia The patient has leukocytosis, fever He has a normal lactic acid Pending blood cultures, sputum culture Treat for community-acquired pneumonia with azithromycin and ceftriaxone #2 acute on chronic diastolic congestive heart failure We will continue diuretics I will increase the Lasix dose today #3 chest pain, tightness Likely related to infection Nevertheless the patient has significant history of coronary artery disease The mild elevation in troponin likely relates to congestive heart failure, chronic coronary artery disease and chronic renal failure combination. Will treat coronary artery disease with aspirin, Plavix, Imdur, metoprolol #4 chronic kidney disease stage 3-4 Continue diuretics Recheck electrolytes and renal function test in the morning #5 diabetes Treat with Levemir, NovoLog combination Use supplemental insulin as needed #6 chronic pain Continue Neurontin and hydrocodone when necessary #7 hypertension Treat with metoprolol, hydralazine, Imdur, hydrochlorothiazide, Lasix Monitor blood pressure and adjust as needed
[2017-04-02] MEDS: Furosemide 40 MG Tab PO SCH (14:43)
[2017-04-02] MEDS: Acetaminophen/HYDROcodone 325-5 MG Tab PO PRN (19:41)
[2017-04-02] MEDS: cefTRIAXone 1 GM in Sodium Chloride 0.9% 50 ML IV SCH (19:42)
[2017-04-02] MEDS: Azithromycin 500 MG in Sodium Chloride 0.9% 250 ML IV SCH (20:17)
[2017-04-02] MEDS: Gabapentin 400 MG Cap PO SCH (20:29)
[2017-04-02] MEDS: Zolpidem 5 MG Tab PO PRN (21:17)
[2017-04-03] MEDS: Heparin Sodium 5,000 Units/ML Vial SUBCUT SCH ×3 (05:34→21:40)
[2017-04-03] MEDS: Acetaminophen/HYDROcodone 325-5 MG Tab PO PRN ×2 (05:35→16:00)
[2017-04-03] MEDS: Terazosin 5 MG Cap PO SCH (08:41)
[2017-04-03] MEDS: hydrALAZINE 25 MG Tab PO SCH ×2 (08:42→20:43)
[2017-04-03] MEDS: Aspirin 81 MG Tab.Chew PO SCH (08:42)
[2017-04-03] MEDS: Metoprolol Succinate 50 MG Tab.ER PO SCH ×2 (08:42→20:49)
[2017-04-03] MEDS: Ezetimibe 10 MG Tab PO SCH (08:43)
[2017-04-03] MEDS: Isosorbide Mononitrate 30 MG Tab.ER PO SCH ×2 (08:43→20:47)
[2017-04-03] MEDS: Hydrochlorothiazide 25 MG Tab PO SCH (08:44)
[2017-04-03] MEDS: Furosemide 40 MG Tab PO SCH ×2 (08:44→14:55)
[2017-04-03] MEDS: Insulin Detemir 100 Units/ML 3 ML Pen SUBCUT SCH ×2 (08:51→21:39)
[2017-04-03] MEDS: Insulin Aspart 100 Units/ML 3 ML Pen SUBCUT SCH ×3 (08:51→16:50)
[2017-04-03] MEDS: Clopidogrel 75 MG Tab PO SCH (10:46)
[2017-04-03] MEDS ORDERED: Furosemide 20 MG Tab PO ONE (14:04)
[2017-04-03] MEDS ORDERED: Pantoprazole 40 MG Tab.CR PO ONE (17:29)
[2017-04-03] MEDS: cefTRIAXone 1 GM in Sodium Chloride 0.9% 50 ML IV SCH (20:08)
[2017-04-03] MEDS: Sodium Chloride 0.9% 10 ML Syringe FLUSH PRN ×2 (20:08→20:39)
[2017-04-03] MEDS: Azithromycin 500 MG in Sodium Chloride 0.9% 250 ML IV SCH (20:37)
[2017-04-03] MEDS: Gabapentin 400 MG Cap PO SCH (20:47)
[2017-04-03] MEDS: Zolpidem 5 MG Tab PO PRN (21:40)
[2017-04-04] MEDS: LORazepam 0.5 MG Tab PO PRN (03:03)
[2017-04-04] MEDS: Heparin Sodium 5,000 Units/ML Vial SUBCUT SCH ×3 (06:32→21:33)
[2017-04-04] MEDS: Pantoprazole 40 MG Tab.CR PO SCH (06:32)
[2017-04-04] MEDS: Insulin Aspart 100 Units/ML 3 ML Pen SUBCUT SCH ×3 (09:05→16:56)
[2017-04-04] MEDS: hydrALAZINE 25 MG Tab PO SCH ×2 (09:06→21:37)
[2017-04-04] MEDS: Aspirin 81 MG Tab.Chew PO SCH (09:08)
[2017-04-04] MEDS: Hydrochlorothiazide 25 MG Tab PO SCH (09:09)
[2017-04-04] MEDS: Terazosin 5 MG Cap PO SCH (09:09)
[2017-04-04] MEDS: Isosorbide Mononitrate 30 MG Tab.ER PO SCH ×2 (09:10→21:35)
[2017-04-04] MEDS: Furosemide 20 MG Tab PO SCH (09:11)
[2017-04-04] MEDS: Clopidogrel 75 MG Tab PO SCH (09:11)
[2017-04-04] MEDS: Ezetimibe 10 MG Tab PO SCH (09:12)
[2017-04-04] MEDS: Metoprolol Succinate 50 MG Tab.ER PO SCH ×2 (09:12→21:34)
[2017-04-04] MEDS: Insulin Detemir 100 Units/ML 3 ML Pen SUBCUT SCH ×2 (09:19→21:24)
[2017-04-04] MEDS: Acetaminophen/HYDROcodone 325-5 MG Tab PO PRN (12:48)
[2017-04-04] MEDS: cefTRIAXone 1 GM in Sodium Chloride 0.9% 50 ML IV SCH (20:22)
[2017-04-04] MEDS: Sodium Chloride 0.9% 10 ML Syringe FLUSH PRN ×2 (20:22→21:20)
[2017-04-04] MEDS: Azithromycin 500 MG in Sodium Chloride 0.9% 250 ML IV SCH (21:19)
[2017-04-04] MEDS: Gabapentin 400 MG Cap PO SCH (21:28)
[2017-04-04] MEDS: Zolpidem 5 MG Tab PO PRN (22:43)
[2017-04-05] MEDS: LORazepam 0.5 MG Tab PO PRN (04:25)
[2017-04-05] MEDS: Heparin Sodium 5,000 Units/ML Vial SUBCUT SCH ×2 (06:15→14:05)
[2017-04-05] MEDS: Pantoprazole 40 MG Tab.CR PO SCH (06:15)
[2017-04-05] MEDS: Insulin Aspart 100 Units/ML 3 ML Pen SUBCUT SCH ×2 (08:15→12:36)
--- NOTE | 2017-04-05 08:39 | PN ---
DATE: 04/03/2017 SUBJECTIVE: Mr. Soto is a 61-year-old gentleman who has been diabetic for the last 10 years. He has a history of chronic kidney disease. He was admitted with history of a 7-10 day course of fever, cough, and shortness of breath. Chest x-ray at the time of admission showed multilobar pneumonia. He is currently receiving IV ceftriaxone and IV azithromycin. He continues on his usual medications. During the admission, his Lasix was increased because of possible underlying CHF and an elevated BNP of over 1000. It was noted, however, that he has significant renal failure. At the time of admission, BUN and creatinine were 44 and 3.5 with a GFR of 18. Those numbers have increased since the time of admission to 57 and 4.3, and GFR has declined to 14. I did contact Dr. Broderick who is Mr. Soto's credit charge authorizer. Dr. Broderick will be here this weekend. Mr. Soto said that Dr. Broderick has already discussed with him the probability that he will end up on dialysis because of his declining renal function. They have talked about the possibility of a fistula, and Dr. Broderick will move ahead to arrange referrals with vascular surgeon and for venous Doppler mapping of the bilateral upper extremities in preparation for placement of the fistula. A review of his clinical data shows that he is taking in adequate fluids. He is voiding. He is tolerating his diet, eating 100% of his meals. Vital signs have been stable. Blood pressure is well controlled. He was initially febrile with temperature between 101 to 102, and overnight, was running temperatures of up to 99.9 and is now down to 98. PHYSICAL EXAMINATION: General: He is a pleasant gentleman seated in his room. He is in no acute distress. He denied any new problems or concerns. No chest pain or shortness of breath. No abdominal pain. He and his voiced some concern about his urine output, and we will measure this carefully and see if he is making adequate urine. We explained that even in renal failure, urine output is variable. Vital Signs: Blood pressure this morning 115/48, pulse 62, respiratory rate 18, oxygen saturation 97% on 2 L, and temperature 99.4. Weight 258 pounds. HEENT: Unremarkable. ENT was clear. Neck: No JVDs or bruits. Chest: Showed clear but diminished bilateral breath sounds with some coarse breath sounds on the posterior exam. Heart: Showed regular rate and rhythm. Abdomen: Obese, soft, and benign. Extremities: Showed CESILIA hose in place. Neurological: Intact. ASSESSMENT AND PLAN: We will continue to monitor his renal function closely. His renal function appears to be declining significantly. As mentioned above, he already is being followed by Nephrology, and Dr. Broderick will be here this weekend and see him and discuss future plans with him. He does have anemia with a hemoglobin of 8 and hematocrit of 25.6. We do not have Aranesp or Epogen available to us at the hospital. We will not transfuse him at this point, but we will wait for Dr. Broderick's input on this over the weekend. This almost certainly is an anemia of renal disease. A repeat lab work will be ordered for Friday including hemoglobin, hematocrit, as well as repeat renal function. His blood sugars are being monitored and are well controlled and actually running low at times. We will continue to monitor this carefully and make adjustments in his insulin coverage. [facility] /[id number] MTDD
--- NOTE | 2017-04-05 08:51 | PN ---
DATE: 04/04/2017 SUBJECTIVE: Mr. Soto is a 61-year-old gentleman admitted for multilobar pneumonia. He is also diabetic and has significant diabetic nephropathy. Nursing staff expresses no new concerns or events overnight. Review of his clinical data shows that he is taking in fluids. We have been carefully monitoring his urine output because he and his voiced concerns about his output, feeling that possibly it was reduced. In fact, however, if we look at his overall output, he still continues to make more than adequate urine of at least 70 mL/h. He continues to tolerate his diet. A review of his blood sugars shows that blood sugars are well controlled, and at times, on the low side. We did lower his Levemir to 26 units b.i.d. He also continues on a medium dose NovoLog sliding scale. Lasix dose has been adjusted from 40 mg twice a day to 60 mg once a day based on discussion with Nephrology. PHYSICAL EXAMINATION: General: He has seated comfortably in his chair. He voices no new concerns or complaints. Vital Signs: Blood pressure 121/63, pulse 82, respiratory rate 20, and oxygen saturation 100% on room air. He is afebrile. HEENT: Unremarkable. ENT was clear. Chest: Showed clear but diminished bilateral breath sounds. Heart: Showed regular rate and rhythm. Abdomen: Obese, soft, and benign. Extremities: Showed no marked edema. Neurological: He is intact. ASSESSMENT AND PLAN: We will continue present management with changes as above. We have ordered a repeat lab work for the weekend including hemoglobin, hematocrit, BUN, and creatinine. Dr. Broderick will speak with him tomorrow regarding the plans for fistula placement in preparation for probable renal dialysis in the near future. Two sets of blood cultures remain without growth since the time of admission. [facility] /[id number]
[2017-04-05 09:35] VITALS: BP 134/88
[2017-04-05] MEDS: Aspirin 81 MG Tab.Chew PO SCH (09:36)
[2017-04-05] MEDS: Furosemide 20 MG Tab PO SCH (09:36)
[2017-04-05] MEDS: Clopidogrel 75 MG Tab PO SCH (09:36)
[2017-04-05] MEDS: Hydrochlorothiazide 25 MG Tab PO SCH (09:36)
[2017-04-05] MEDS: Ezetimibe 10 MG Tab PO SCH (09:36)
[2017-04-05] MEDS: Isosorbide Mononitrate 30 MG Tab.ER PO SCH (09:37)
[2017-04-05] MEDS: Metoprolol Succinate 50 MG Tab.ER PO SCH (09:38)
[2017-04-05] MEDS: hydrALAZINE 25 MG Tab PO SCH (09:39)
[2017-04-05] MEDS: Terazosin 5 MG Cap PO SCH (09:39)
[2017-04-05] MEDS: Insulin Detemir 100 Units/ML 3 ML Pen SUBCUT SCH (09:40)
[2017-04-05] MEDS: Sodium Chloride 0.9% 10 ML Syringe FLUSH PRN (09:43)
--- NOTE | 2017-04-05 10:43 | PCM.DCSUM1 ---
Discharge Summary - Hospital Course Free Text/Narrative:: He is feeling good today, No fever or chill appetite is good and will be going home. The patient is a 61-year-old gentleman who presented with the week history of not feeling well.He was getting increasing short of breath associated with subjective fever since 31 March.There is no sick contact in the family.He has a dry cough but no associated sputum.He was complaining of chest tightness along with the coughing. Shortness of breath is worse with activity, better with rest.The patient had constipation but then had some bowel movement on 01 April Came into the emergency room with the complaints of cough shortness of breath chest tightness. He was admitted with Pneumonia with B/L lower lobe consolidation. He was started on abx Azithromycin and ceftriaone and also diuresed with increased dose of lasix. He is doing well and will be going home. He will be seen in Renal clinic on Friday and will give IV Iron and aranesp. His hgb is dropping but will avoid giving blood transfusion because he will be a transplant candidate in future. The patient has a past medical history significant for diabetes, which is likely poorly controlled with diabetic neuropathy, hypercholesterolemia, hypertension, obesity, and also chronic use of ibuprofen daily for 8 to 10 years and Nephrotic syndrome and he had Kidney Biopsy ( 04/25/16): Diagnosis: Diabetic Glomerulosclerosis- Nodular Typ HPI Initial Comments: The patient is a 61-year-old gentleman who presented with the week history of not feeling well.He was getting increasing short of breath associated with subjective fever since 31 March.There is no sick contact in the family.He has a dry cough but no associated sputum.He was complaining of chest tightness along with the coughing. Shortness of breath is worse with activity, better with rest.The patient had constipation but then had some bowel movement on 01 April Came into the emergency room with the complaints of cough shortness of breath chest tightness. The patient has a past medical history significant for diabetes, which is likely poorly controlled with diabetic neuropathy, hypercholesterolemia, hypertension, obesity, and also chronic use of ibuprofen daily for 8 to 10 years and Nephrotic syndrome and he had Kidney Biopsy ( 04/25/16): Diagnosis: Diabetic Glomerulosclerosis- Nodular Type - Discharge Data Discharge Date: 04/05/17 Discharge Disposition: Home, Self-Care 01 Condition: Good - Patient Summary/Data Recommended Follow-up Testing/Procedures: He will be sen in Renal clinic on Friday ay 12:00 Via telemedicine with labs. He will follow with his PMD in a week. He will also follow with Dr. Diaz for fistula evaluation at [facility] and will have Vein Mapping for to visit with Dr. Diaz - Patient Instructions Diet: Diabetic Diet Activity: As Tolerated Driving: May Drive Today Showering/Bathing: May Shower Notify Provider of: Fever, Swelling and Redness, Nausea and/or Vomiting Other/Special Instructions: The pt will be going home today. He was admitted with B/L lober pneumonia and was treated with Azithromycin and Ceftriaxone. He is also noted have drop in Hgb and will not give blood transfusion as it will make future transplant complicated and also it's not urgent to transfuse. He will have appointment at [facility] renal clinic Via Telemedicine on Friday ( ) with labs and will give IV iron and also aranesp. He will also follow with Dr. Diaz at [facility] ( I have discussed with Dr. Diaz and will call him with date and time of his appointment). He will go home with Abx Cefpodoxime 100 mg 2 times a day X 7 days course. He is also advise to Follow with PMD in a week. - Discharge Plan Prescriptions/Med Rec: Cefpodoxime Proxetil 200 mg PO DAILY 7 Days #7 tablet Home Medications: Home Meds Hydrocodone/Acetaminophen [Hydrocodone-Acetaminophen 5-325] 1 tab PO TID PRN 03/25 [History] Insulin Aspart [Novolog Flexpen] 15 units SQ TIDAC 12/20/13 [History] Insulin Detemir [Levemir Flexpen] 30 unit SQ BID 01/19/14 [History] Aspirin [Children's Aspirin] 81 mg PO DAILY 05/15/16 [History] Clopidogrel Bisulfate [Plavix] 75 mg PO DAILY 05/15/16 [History] Ezetimibe [Zetia] 10 mg PO DAILY 05/15/16 [History] Gabapentin [Neurontin] 1,200 mg PO BEDTIME 05/15/16 [History] Hydrochlorothiazide 25 mg PO DAILY 05/15/16 [History] LORazepam 0.5 - 1 mg PO QID PRN 05/15/16 [History] Loratadine 10 mg PO DAILY 05/15/16 [History] Metoprolol Succinate [Toprol XL] 150 mg PO BID 05/15/16 [History] Nitroglycerin [Nitrostat] 0.4 mg SL Q5M PRN 05/15/16 [History] Terazosin HCl [Terazosin] 10 mg PO DAILY 05/15/16 [History] Docusate Sodium 100 mg PO BID PRN #60 capsule 12/29/16 [Rx] Isosorbide Mononitrate [Imdur] 90 mg PO BID tab.er 12/29/16 [Rx] hydrALAZINE [Apresoline] 150 mg PO Q12H #90 tablet 12/29/16 [Rx] Cefpodoxime Proxetil 200 mg PO DAILY 7 Days #7 tablet 04/05/17 [Rx] Furosemide 60 mg PO DAILY #90 tbs 04/05/17 [Rx] Forms: ED Department Discharge Referrals: Nathanael Harvey MD [Primary Care Provider] - - Discharge Summary/Plan Comment DC Time >30 min.: Yes Discharge Summary/Plan Comment: The patient is a 61-year-old gentleman who presented with the week history of not feeling well He was getting increasing short of breath associated with subjective fever since 31 March. Came into the emergency room with the complaints of cough shortness of breath chest tightness. Impression and Plan: #1 pneumonia The patient has leukocytosis, fever He has a normal lactic acid Treat for community-acquired pneumonia with azithromycin and ceftriaxone and he will be going home on Cefpodoxime 100 mg BID X 7 days #2 acute on chronic diastolic congestive heart failure We will continue diuretics 40 mg daily #3 chest pain, tightness Likely related to infection, cardiac work up negative and now doing well #4 chronic kidney disease stage 3-4 I have discussed with him today all forms of [employer] including renal transplant, HD and PD -I have discussed with Dr. Diaz and will be seen for fistula evaluation -Will also refer him for Kidney Transplant evaluation at [facility] [place] [place] #5 diabetes Treat with Levemir, NovoLog combination Use supplemental insulin as needed #6 chronic pain Continue Neurontin and hydrocodone when necessary #7 hypertension: BP acceptable and will continue metoprolol, hydralazine, Imdur , hydrochlorothiazide -Advise to check BP regularly at home - General Info Date of Service: 04/05/17 Admission Dx/Problem (Free Text: Admission Diagnosis/Problem Admission Diagnosis/Problem B/L lobar Pneumonia Subjective Update: Overnight had no issue , no fever or cough, appetite is good and has no nause or vomiting and off supplemental oxygen Functional Status: Reports: Tolerating Diet, Ambulating, Urinating - Review of Systems General: Reports: Appetite (good). Denies: Fever, Weakness, Chills HEENT: Denies: Ear Pain, Headaches, Sinus Congestion, Sore Throat Pulmonary: Denies: Shortness of Breath, Pleuritic Chest Pain, Cough, Sputum, Wheezing Cardiovascular: Denies: Chest Pain, Dyspnea on Exertion, Edema Gastrointestinal: Denies: Abdominal Pain, Diarrhea, Difficulty Swallowing, Nausea, Vomiting Genitourinary: Denies: Dysuria, Frequency, Burning, Urgency, Flank Pain Musculoskeletal: Denies: Neck Pain, Shoulder Pain, Back Pain, Foot Pain Skin: Denies: Bruising, Pruritis, Rash Neurological: Denies: Numbness, Tingling, Tremors, Difficulty Walking Psychiatric: Reports: No Symptoms - Patient Data Vitals - Most Recent: Last Vital Signs Temp 37.1 C 04/05/17 07:53 Pulse 64 04/05/17 09:38 Resp 20 04/05/17 07:53 BP 134/88 04/05/17 09:39 Pulse Ox 98 04/05/17 07:53 Weight - Most Recent: 118.025 kg I&O - Last 24 hours: Intake & Output 04/04/17 04/05/17 04/05/17 22:59 06:59 14:59 Intake Total 653 300 440 Output Total 625 Balance 653 -325 440 Lab Results - Last 24 hrs: Laboratory Results - last 24 hr 04/04/17 04/04/17 04/04/17 Range/Units 11:14 16:40 20:41 Hgb (14.0-18.0) g/dL Hct (40.0-54.0) % BUN (7-18) mg/dL Creatinine (0.6-1.3) mg/dL Est Cr Clr Drug Dosing mL/min Estimated GFR (MDRD) POC Glucose 134 H 95 144 H (70-105) mg/dl 04/05/17 04/05/17 04/05/17 Range/Units 06:12 06:12 07:36 Hgb 7.7 L (14.0-18.0) g/dL Hct 24.5 L (40.0-54.0) % BUN 64 H (7-18) mg/dL Creatinine 4.2 H (0.6-1.3) mg/dL Est Cr Clr Drug Dosing 19.67 mL/min Estimated GFR (MDRD) 15 POC Glucose 83 (70-105) mg/dl Med Orders - Current: Current Medications Acetaminophen (Tylenol) 650 mg PO Q4H PRN PRN Reason: Pain (Mild 1-3)/fever Last Admin: 04/02/17 21:18 Dose: 650 mg Hydrocodone Bitart/Acetaminophen ([place] 325-5 Mg) 1 tab PO TID PRN PRN Reason: Pain (moderate 4-6) Last Admin: 04/04/17 12:48 Dose: 1 tab Aspirin (Aspirin) 81 mg PO DAILY [facility] Last Admin: 04/05/17 09:36 Dose: 81 mg Clopidogrel Bisulfate (Plavix) 75 mg PO DAILY [facility] Last Admin: 04/05/17 09:36 Dose: 75 mg Docusate Sodium (Colace) 100 mg PO BID PRN PRN Reason: Stool Softener Last Admin: 04/04/17 21:27 Dose: 100 mg Ezetimibe (Zetia) 10 mg PO DAILY [facility] Last Admin: 04/05/17 09:36 Dose: 10 mg Furosemide (Lasix) 60 mg PO DAILY [facility] Last Admin: 04/05/17 09:36 Dose: 60 mg Gabapentin (Neurontin) 1,200 mg PO BEDTIME [facility] Last Admin: 04/04/17 21:28 Dose: 1,200 mg Heparin Sodium (Porcine) (Heparin Sodium) 5,000 units SUBCUT Q8HR [facility] Last Admin: 04/05/17 06:15 Dose: 5,000 units Hydralazine HCl (Apresoline) 150 mg PO BID [facility] Last Admin: 04/05/17 09:39 Dose: 150 mg Hydrochlorothiazide (Hydrochlorothiazide) 25 mg PO DAILY [facility] Last Admin: 04/05/17 09:36 Dose: 25 mg Azithromycin 500 mg/ Sodium (Chloride) 250 mls @ 250 mls/hr IV Q24H [facility] Last Admin: 04/04/17 21:19 Dose: 250 mls/hr Ceftriaxone Sodium 1 gm/ (Sodium Chloride) 50 mls @ 100 mls/hr IV Q24H [facility] Last Admin: 04/04/17 20:22 Dose: 100 mls/hr Insulin Aspart (Novolog) 0 unit SUBCUT TIDAC [facility] PRN Reason: Protocol Last Admin: 04/05/17 08:15 Dose: Not Given Insulin Detemir (Levemir) 26 unit SUBCUT BID [facility] Last Admin: 04/05/17 09:40 Dose: 26 units Isosorbide Mononitrate (Imdur) 90 mg PO BID [facility] Last Admin: 04/05/17 09:37 Dose: 90 mg Lorazepam (Ativan) 0.5 mg PO Q6H PRN PRN Reason: ANXIETY Last Admin: 04/05/17 04:25 Dose: 0.5 mg Metoprolol Succinate (Toprol Xl) 150 mg PO BID [facility] Last Admin: 04/05/17 09:38 Dose: 150 mg Nitroglycerin (Nitrostat) 0.4 mg SL Q5M PRN PRN Reason: Chest Pain Ondansetron HCl (Zofran Odt) 4 mg PO Q6H PRN PRN Reason: nausea, able to take PO Pantoprazole Sodium (Protonix) 40 mg PO ACBREAKFAST [facility] Last Admin: 04/05/17 06:15 Dose: 40 mg Sodium Chloride (Saline Flush) 10 ml FLUSH ASDIRECTED PRN PRN Reason: Keep Vein Open Last Admin: 04/05/17 09:43 Dose: 10 ml Sodium Chloride (Saline Flush) 10 ml FLUSH ASDIRECTED PRN PRN Reason: Keep Vein Open Terazosin HCl (Hytrin) 10 mg PO DAILY [facility] Last Admin: 04/05/17 09:39 Dose: 10 mg Zolpidem Tartrate (Ambien) 5 mg PO BEDTIME PRN PRN Reason: Sleep Last Admin: 04/04/17 22:43 Dose: 5 mg Discontinued Medications Furosemide (Lasix) 40 mg PO DAILY [facility] Last Admin: 04/02/17 08:59 Dose: 40 mg Furosemide (Lasix) 40 mg PO BIDDIURETIC [facility] Last Admin: 04/03/17 14:55 Dose: Not Given Furosemide (Lasix) 20 mg PO ONETIME ONE Stop: 04/03/17 14:05 Last Admin: 04/03/17 14:29 Dose: 20 mg Insulin Aspart (Novolog) 15 unit SUBCUT TIDAC [facility] Insulin Detemir (Levemir) 30 unit SUBCUT BID [facility] Last Admin: 04/04/17 09:19 Dose: 30 units Pantoprazole Sodium (Protonix) 40 mg PO ONETIME ONE Stop: 04/03/17 17:30 Last Admin: 04/03/17 17:47 Dose: 40 mg - Exam Quality Assessment: Denies: Supplemental Oxygen, Urine Catheter, DVT Prophylaxis General: Reports: Alert, Oriented, Cooperative, No Acute Distress HEENT: Reports: Pupils Equal, Pupils Reactive, Mucous Membr. Moist/[place] Neck: Reports: Supple, No JVD, No Thyromegaly Lungs: Reports: Clear to Auscultation, Normal Respiratory Effort. Denies: Crackles, Wheezing Cardiovascular: Reports: Regular Rate, Regular Rhythm, No Murmurs GI/Abdominal Exam: Normal Bowel Sounds, Soft, Non-Tender, No Distention. No: Guarding, Rebound, Tender (Male) Exam: Deferred Rectal (Males) Exam: Deferred Back Exam: Reports: Normal Inspection, Full Range of Motion Extremities: Normal Range of Motion, No Pedal Edema, Other (good peripheral pulses, No cyanosis) Skin: Reports: Warm, Dry, Intact Neurological: Reports: No New Focal Deficit Psy/Mental Status: Reports: Alert, Normal Affect, Normal Mood *Q Meaningful Use (DIS) - VTE *Q VTE Criteria *Q: - Stroke *Q Stroke Criteria *Q: - AMI *Q AMI Criteria *Q:
--- NOTE | 2017-04-14 07:42 | EKG ---
04/01/2017- ADAMA QUINTANILLA - EKG shows sinus rhythm, with left bundle-branch block. [facility] /[id number]
== END 2017-04-05 13:15 | disposition home or self-care (01) | DRG 139 ==
LOC: DL.ED 15:34 → UNDOADMIN 18:19 → DL.MS 18:19
PROVIDERS: ADMIT Internal Medicine; ATTEND Internal Medicine
DX: J18.9 Pneumonia, unspecified organism (principal); I25.10 Atherosclerotic heart disease of native coronary artery without angina pectoris; I13.0 Hypertensive heart and chronic kidney disease with heart failure and stage 1 through stage 4 chronic kidney disease, or unspecified chronic kidney disease; J96.01 Acute respiratory failure with hypoxia; I50.33 Acute on chronic diastolic (congestive) heart failure; N18.4 Chronic kidney disease, stage 4 (severe); E11.22 Type 2 diabetes mellitus with diabetic chronic kidney disease; E78.00 Pure hypercholesterolemia, unspecified; K21.9 Gastro-esophageal reflux disease without esophagitis; E66.9 Obesity, unspecified; K59.00 Constipation, unspecified; N40.0 Benign prostatic hyperplasia without lower urinary tract symptoms; F41.9 Anxiety disorder, unspecified; E11.65 Type 2 diabetes mellitus with hyperglycemia; E11.40 Type 2 diabetes mellitus with diabetic neuropathy, unspecified; D64.9 Anemia, unspecified; G89.29 Other chronic pain; Z95.5 Presence of coronary angioplasty implant and graft; Z79.4 Long term (current) use of insulin; Z79.899 Other long term (current) drug therapy; Z79.02 Long term (current) use of antithrombotics/antiplatelets; Z87.891 Personal history of nicotine dependence; Z79.82 Long term (current) use of aspirin
CPT/HCPCS: 36415; 71010; 80048; 80053; 81001; 82565; 82962; 83605; 83880; 84484; 84520; 85014; 85018; 85025; 87040; 87081; 87430; 87804; 99284; A9270-GY; J0456; J0696; J1644; J1815-GY; J7050

== ENCOUNTER 2017-04-11 11:12 | Emergency (ER) | payer BC, OTHER ==
[2017-04-11] MEDS ORDERED: Furosemide 40 MG/4 ML VIAL IVPUSH ONE (12:00)
[2017-04-11] MEDS ORDERED: HYDROmorphone 1 MG/ML Syringe IVPUSH ONE (12:39)
--- NOTE | 2017-04-11 12:42 | EDM.PDOC ---
ED HPI GENERAL MEDICAL PROBLEM - General Chief Complaint: Respiratory Problem Stated Complaint: CHEST PAIN FROM [facility]. IN BY [facility]B Time Seen by Provider: 04/11/17 12:00 Source of Information: Reports: Patient, EMS, EMS Notes Reviewed, Family, RN, RN Notes Reviewed History Limitations: Reports: No Limitations - History of Present Illness INITIAL COMMENTS - FREE TEXT/NARRATIVE: Pt presents to the ER per [facility] with c/o chest/epigastric pain and increased SOB. Pt states he was recently admitted for renal failure and CHF/pneumonia. He states he began having epigastric/chest pain on and off last night, through the night, and this morning. He denies N/V/D, fever. He states he has had the chills and a cough at times. Onset: Gradual Onset Date: 04/10/17 Onset Time: 20:00 Duration: Getting Worse Location: Reports: Chest, Abdomen Quality: Reports: Pressure Severity: Moderate Improves with: Reports: None Worsens with: Reports: None Associated Symptoms: Reports: Chest Pain, Shortness of Breath Mid-Sternal Chest Pain Score (Numeric/FACES): 6 - Related Data Allergies Allergy/AdvReac Type Severity Reaction Status Date / Time No Known Allergies Allergy Verified 04/01/17 18:05 Home Meds: Home Meds Hydrocodone/Acetaminophen [Hydrocodone-Acetaminophen 5-325] 1 tab PO TID PRN 03/25 [History] Insulin Aspart [Novolog Flexpen] 15 units SQ TIDAC 12/20/13 [History] Insulin Detemir [Levemir Flexpen] 30 unit SQ BID 01/19/14 [History] Aspirin [Children's Aspirin] 81 mg PO DAILY 05/15/16 [History] Clopidogrel Bisulfate [Plavix] 75 mg PO DAILY 05/15/16 [History] Ezetimibe [Zetia] 10 mg PO DAILY 05/15/16 [History] Gabapentin [Neurontin] 1,200 mg PO BEDTIME 05/15/16 [History] Hydrochlorothiazide 25 mg PO DAILY 05/15/16 [History] LORazepam 0.5 - 1 mg PO QID PRN 05/15/16 [History] Loratadine 10 mg PO DAILY 05/15/16 [History] Metoprolol Succinate [Toprol XL] 150 mg PO BID 05/15/16 [History] Nitroglycerin [Nitrostat] 0.4 mg SL Q5M PRN 05/15/16 [History] Terazosin HCl [Terazosin] 10 mg PO DAILY 05/15/16 [History] Docusate Sodium 100 mg PO BID PRN #60 capsule 12/29/16 [Rx] Isosorbide Mononitrate [Imdur] 90 mg PO BID tab.er 12/29/16 [Rx] hydrALAZINE [Apresoline] 150 mg PO Q12H #90 tablet 12/29/16 [Rx] Cefpodoxime Proxetil 200 mg PO DAILY 7 Days #7 tablet 04/05/17 [Rx] Furosemide 60 mg PO DAILY #90 tbs 04/05/17 [Rx] Past Medical History HEENT History: Reports: Impaired Vision Other HEENT History: WEARS CORRECTIVE LENSES; UPPER AND LOWER DENTURE PLATE Cardiovascular History: Reports: CAD, Heart Failure, High Cholesterol, Hypertension, Stents Respiratory History: Reports: Other (See Below) Other Respiratory History: recent bronchitis Gastrointestinal History: Reports: Chronic Constipation, Colon Polyp, Gastritis , GERD Other Gastrointestinal History: gall stones Genitourinary History: Reports: BPH, Chronic Renal Insuffiency Musculoskeletal History: Reports: Fracture Other Musculoskeletal History: missing tip of pinkie on left hand Neurological History: Reports: Headaches, Chronic Psychiatric History: Reports: None, Anxiety Endocrine/Metabolic History: Reports: Diabetes, Type II Hematologic History: Reports: None Immunologic History: Reports: None Oncologic (Cancer) History: Reports: None Dermatologic History: Reports: None - Infectious Disease History Infectious Disease History: Reports: Measles - Past Surgical History Head Surgeries/Procedures: Reports: None Cardiovascular Surgical History: Reports: None, Coronary Artery Stent Respiratory Surgical History: Reports: None Male Surgical History: Reports: None Musculoskeletal Surgical History: Reports: None Other Musculoskeletal Surgeries/Procedures:: LEFT ANKLE SURGERY Oncologic Surgical History: Reports: None Dermatological Surgical History: Reports: None Social & Family History - Family History Family Medical History: Noncontributory : Reports: Renal Disease/Insufficiency Neurological: Reports: TIA Endocrine/Metabolic: Reports: Diabetes, type II - Tobacco Use Smoking Status *Q: Former Smoker Years of Tobacco use: 30 Packs/Tins Daily: 1 Used Tobacco, but Quit: Yes Month Tobacco Last Used: unknown Second Hand Smoke Exposure: No - Caffeine Use Caffeine Use: Reports: Coffee - Alcohol Use Days Per Week of Alcohol Use: 1 Number of Drinks Per Day: 5 Total Drinks Per Week: 5 - Recreational Drug Use Recreational Drug Use: No Drug Use in Last 12 Months: No - Living Situation & Occupation Living situation: Reports: with Family, Occupation: Employed ED ROS GENERAL - Review of Systems Review Of Systems: ROS reveals no pertinent complaints other than HPI. ED EXAM, GENERAL - Physical Exam Exam: See Below Exam Limited By: No Limitations General Appearance: Alert, WD/WN, Moderate Distress Eye Exam: Bilateral Eye: EOMI, Normal Inspection Ears: Normal External Exam, Hearing Grossly Normal Nose: Normal Inspection Throat/Mouth: Normal Inspection, Normal Voice, No Airway Compromise Head: Atraumatic, Normocephalic Neck: Normal Inspection, Supple, Non-Tender, Full Range of Motion Respiratory/Chest: Lungs Clear (diminished), Respiratory Distress, Decreased Breath Sounds, Accessory Muscle Use Cardiovascular: Normal Peripheral Pulses, Regular Rate, Rhythm, Systolic Murmur. No: No Edema Peripheral Pulses: 2+: Radial (L), Radial (R), Dorsalis Pedis (L), Dorsalis Pedis (R) GI/Abdominal: Normal Bowel Sounds, Rigid, Tender (Male) Exam: Deferred Rectal (Males) Exam: Deferred Extremities: Normal Inspection, Normal Range of Motion, Non-Tender, Pedal Edema (+1-2) Neurological: Alert, Oriented, Normal Cognition, No Motor/Sensory Deficits Psychiatric: Anxious Skin Exam: Warm, Dry, Intact, Normal Color, No Rash Lymphatic: No Adenopathy EKG INTERPRETATION EKG Date: 04/11/17 Rhythm: Other (sinus rhythm) QRS: LBBB Comparison: No Change Course - Vital Signs Last Recorded V/S: Last Vital Signs Temp 98.3 F 04/11/17 11:14 Pulse 79 04/11/17 11:14 Resp 24 H 04/11/17 11:14 BP 175/82 H 04/11/17 11:14 Pulse Ox 100 04/11/17 11:14 - Orders/Labs/Meds Labs: Laboratory Tests 04/11/17 04/11/17 04/11/17 Range/Units 11:28 11:28 11:28 Lactic Acid 1.1 (0.5-2.2) mmol/L Troponin I 0.03 H* (0.00-0.02) ng/ml B-Natriuretic Peptide 1000 H (0-100) pg/ml Amylase 34 (28-100) U/L Lipase 13 L (22-51) U/L Meds: Medications Discontinued Medications Generic Name Dose Route Start Last Admin Trade Name Ellen PRN Reason Stop Dose Admin Furosemide 40 mg 04/11/17 12:00 04/11/17 12:06 Lasix IVPUSH 04/11/17 12:01 40 mg NOW ONE Administration Hydromorphone HCl 1 mg 04/11/17 12:39 04/11/17 12:53 Dilaudid IVPUSH 04/11/17 12:40 1 mg ONETIME ONE Administration Lorazepam 1 mg 04/11/17 13:12 04/11/17 13:18 Ativan IVPUSH 04/11/17 13:13 1 mg ONETIME ONE Administration - Radiology Interpretation Free Text/Narrative:: Chest xray: improved from March,, but persistent shaggy accentuation of the perihilar lung markigs but no new lung mass or focal lobar infiltrate/ atelectasis. See rad report Departure - Departure Time of Disposition: 13:30 Disposition: DC/Tfer to Acute Hospital 02 Condition: Fair, Serious Clinical Impression: Epigastric abdominal pain Dyspnea Qualifiers: Dyspnea type: shortness of breath Qualified Code(s): R06.02 - Shortness of breath Acute exacerbation of CHF (congestive heart failure) Qualifiers: Congestive heart failure type: unspecified congestive heart failure type Qualified Code(s): I50.9 - Heart failure, unspecified - Discharge Information Referrals: Nathanael Harvey MD [Primary Care Provider] - Forms: ED Department Discharge, Interfacility Transfer DICK
[2017-04-11 12:45] VITALS: BP 175/82
--- NOTE | 2017-04-11 12:47 | CR ---
CLINICAL HISTORY: 61-year-old male with chest pain. INTERPRETATION: Upright AP portable chest film abnormal but decidedly improved relative to recent chest exam 2016, i.e., interval clearing axillary segment right upper lobe pneumonic consolidation. Persistent shaggy accentuation of the perihilar lung markings but no new lung mass or focal lobar inf iltrate/atelectasis. Normal cardiac silhouette. No alveolar edema or dependent pleural effusion.
[2017-04-11] MEDS ORDERED: LORazepam 2 MG/ML Syringe IVPUSH ONE (13:12)
--- NOTE | 2017-04-19 12:59 | EKG ---
04/11/2017 - ADAMA QUINTANILLA - [facility] 12-lead EKG shows normal sinus rhythm with left bundle branch block and nonspecific ST-T wave changes noted on lead V2 and V3. VT interval of 180, QTc of 491, and some mild left atrial abnormalities noted on this 12-lead EKG. No significant ST elevation or ST depression noted on this 12-lead EKG. [facility] /[id number]
== END 2017-04-11 13:30 ==
LOC: DL.ED 11:12
DX: I13.0 Hypertensive heart and chronic kidney disease with heart failure and stage 1 through stage 4 chronic kidney disease, or unspecified chronic kidney disease (principal); I50.9 Heart failure, unspecified; N18.9 Chronic kidney disease, unspecified; E11.22 Type 2 diabetes mellitus with diabetic chronic kidney disease; R10.13 Epigastric pain; I25.10 Atherosclerotic heart disease of native coronary artery without angina pectoris; K21.9 Gastro-esophageal reflux disease without esophagitis; F41.9 Anxiety disorder, unspecified; Z87.891 Personal history of nicotine dependence; Z79.4 Long term (current) use of insulin; Z79.82 Long term (current) use of aspirin; Z79.02 Long term (current) use of antithrombotics/antiplatelets; Z79.899 Other long term (current) drug therapy
CPT/HCPCS: 36415; 71010; 82150; 83605; 83690; 83880; 84484; 96374; 96375; 99285; J1170; J1940; J2060

== ENCOUNTER 2017-05-19 18:47 | Observation (INO) | payer OTHER, BC ==
--- NOTE | 2017-05-19 19:14 | EDM.PDOC ---
ED HPI GENERAL MEDICAL PROBLEM - General Chief Complaint: General Stated Complaint: NOT FEELING GOOD, [id number] Time Seen by Provider: 05/19/17 19:06 Source of Information: Reports: Patient, Family History Limitations: Reports: No Limitations - History of Present Illness INITIAL COMMENTS - FREE TEXT/NARRATIVE: ED with reports patient having difficulty staying awake today, very weak, needs assistance walking, staggering gait. Shaking chills today. Extensive PMH, Recent tx with CHF, renal failure, states increase in Lasix. Is being set up to start dialysis. Receiving IV iron transfusions weekly. Lower Back Pain Score (Numeric/FACES): 5 Headache Pain Score (Numeric/FACES): 4 - Related Data Allergies Allergy/AdvReac Type Severity Reaction Status Date / Time No Known Allergies Allergy Verified 05/19/17 18:57 Home Meds: Home Meds Hydrocodone/Acetaminophen [Hydrocodone-Acetaminophen 5-325] 1 tab PO TID PRN 03/25 [History] Insulin Aspart [Novolog Flexpen] 15 units SQ TIDAC 12/20/13 [History] Insulin Detemir [Levemir Flexpen] 25 unit SQ BID 01/19/14 [History] Aspirin [Children's Aspirin] 81 mg PO DAILY 05/15/16 [History] Clopidogrel Bisulfate [Plavix] 75 mg PO DAILY 05/15/16 [History] Ezetimibe [Zetia] 10 mg PO DAILY 05/15/16 [History] Gabapentin [Neurontin] 1,200 mg PO BEDTIME 05/15/16 [History] Hydrochlorothiazide 25 mg PO DAILY 05/15/16 [History] LORazepam 0.5 - 1 mg PO QID PRN 05/15/16 [History] Loratadine 10 mg PO DAILY 05/15/16 [History] Metoprolol Succinate [Toprol XL] 150 mg PO BID 05/15/16 [History] Nitroglycerin [Nitrostat] 0.4 mg SL Q5M PRN 05/15/16 [History] Terazosin HCl [Terazosin] 10 mg PO DAILY 05/15/16 [History] Docusate Sodium 100 mg PO BID PRN #60 capsule 12/29/16 [Rx] Isosorbide Mononitrate [Imdur] 90 mg PO BID tab.er 12/29/16 [Rx] hydrALAZINE [Apresoline] 150 mg PO Q12H #90 tablet 12/29/16 [Rx] Furosemide 60 mg PO DAILY #90 tbs 04/05/17 [Rx] Past Medical History HEENT History: Reports: Impaired Vision Other HEENT History: WEARS CORRECTIVE LENSES; UPPER AND LOWER DENTURE PLATE Cardiovascular History: Reports: CAD, Heart Failure, High Cholesterol, Hypertension, Stents Respiratory History: Reports: Other (See Below) Other Respiratory History: recent bronchitis Gastrointestinal History: Reports: Chronic Constipation, Colon Polyp, Gastritis , GERD Other Gastrointestinal History: gall stones Genitourinary History: Reports: BPH, Chronic Renal Insuffiency Musculoskeletal History: Reports: Fracture Other Musculoskeletal History: missing tip of pinkie on left hand Neurological History: Reports: Headaches, Chronic Psychiatric History: Reports: Anxiety Endocrine/Metabolic History: Reports: Diabetes, Type II Hematologic History: Reports: None Immunologic History: Reports: None Oncologic (Cancer) History: Reports: None Dermatologic History: Reports: None - Infectious Disease History Infectious Disease History: Reports: Measles - Past Surgical History Head Surgeries/Procedures: Reports: None Cardiovascular Surgical History: Reports: None, Coronary Artery Stent Respiratory Surgical History: Reports: None Male Surgical History: Reports: None Musculoskeletal Surgical History: Reports: None Other Musculoskeletal Surgeries/Procedures:: LEFT ANKLE SURGERY Oncologic Surgical History: Reports: None Dermatological Surgical History: Reports: None Social & Family History - Family History Family Medical History: Noncontributory : Reports: Renal Disease/Insufficiency Neurological: Reports: TIA Endocrine/Metabolic: Reports: Diabetes, type II - Tobacco Use Smoking Status *Q: Never Smoker Years of Tobacco use: 30 Packs/Tins Daily: 1 Used Tobacco, but Quit: Yes Month Tobacco Last Used: unknown Second Hand Smoke Exposure: No - Caffeine Use Caffeine Use: Reports: Coffee - Alcohol Use Days Per Week of Alcohol Use: 1 Number of Drinks Per Day: 5 Total Drinks Per Week: 5 - Recreational Drug Use Recreational Drug Use: No Drug Use in Last 12 Months: No - Living Situation & Occupation Living situation: Reports: with Family, Occupation: Employed ED ROS GENERAL - Review of Systems Review Of Systems: See Below Constitutional: Reports: Chills, Weakness, Fatigue, Decreased Appetite HEENT: Reports: No Symptoms Respiratory: Reports: Shortness of Breath Cardiovascular: Reports: Dyspnea on Exertion Endocrine: Reports: Fatigue GI/Abdominal: Reports: Decreased Appetite. Denies: Abdominal Pain Musculoskeletal: Reports: Back Pain Skin: Reports: No Symptoms Neurological: Reports: Headache (frontal) Hematologic/Lymphatic: Reports: Anemia ED EXAM, GENERAL - Physical Exam Exam: See Below Exam Limited By: No Limitations General Appearance: Lethargic, Mild Distress Eye Exam: Bilateral Eye: EOMI, PERRL Ears: Normal External Exam, Normal TMs Nose: Normal Inspection, Normal Mucosa Throat/Mouth: Normal Inspection, Normal Lips Head: Atraumatic, Normocephalic Neck: Normal Inspection, Full Range of Motion. No: Lymphadenopathy (L), Lymphadenopathy (R) Respiratory/Chest: Lungs Clear, Decreased Breath Sounds Cardiovascular: Normal Peripheral Pulses, Regular Rate, Rhythm GI/Abdominal: Normal Bowel Sounds, Soft, Non-Tender Back Exam: Normal Inspection, Full Range of Motion Extremities: Normal Inspection, Pedal Edema (trace) Neurological: Oriented, Normal Cognition Psychiatric: Flat Affect Skin Exam: Warm, Dry, Intact, Normal Color Course - Vital Signs Last Recorded V/S: Last Vital Signs Temp 98.2 F 05/21/17 00:00 Pulse 54 L 05/21/17 00:00 Resp 20 05/21/17 00:00 BP 147/69 H 05/21/17 00:00 Pulse Ox 100 05/21/17 00:00 - Orders/Labs/Meds Orders: Medication Orders Acetaminophen (Tylenol) 650 mg PO Q4H PRN PRN Reason: Pain (Mild 1-3)/fever Hydrocodone Bitart/Acetaminophen ([place] 325-5 Mg) 1 tab PO TID PRN PRN Reason: Pain (moderate 4-6) Last Admin: 05/20/17 17:55 Dose: 1 tab Admin: 05/20/17 08:13 Dose: 1 tab Admin: 05/20/17 00:21 Dose: 1 tab Aspirin (Aspirin) 81 mg PO DAILY [facility] Last Admin: 05/20/17 08:13 Dose: 81 mg Clopidogrel Bisulfate (Plavix) 75 mg PO DAILY [facility] Last Admin: 05/20/17 08:13 Dose: 75 mg Ezetimibe (Zetia) 10 mg PO DAILY [facility] Last Admin: 05/20/17 08:13 Dose: 10 mg Furosemide (Lasix) 60 mg PO DAILY [facility] Last Admin: 05/20/17 08:12 Dose: 60 mg Gabapentin (Neurontin) 1,200 mg PO BEDTIME [facility] Last Admin: 05/20/17 20:14 Dose: 1,200 mg Heparin Sodium (Porcine) (Heparin Sodium) 5,000 units SUBCUT Q12H [facility] Last Admin: 05/21/17 00:40 Dose: Not Given Admin: 05/20/17 22:54 Dose: 5,000 units Admin: 05/20/17 12:17 Dose: 5,000 units Admin: 05/20/17 00:25 Dose: 5,000 units Hydralazine HCl (Apresoline) 150 mg PO Q12H [facility] Last Admin: 05/20/17 22:52 Dose: 150 mg Admin: 05/20/17 12:16 Dose: 150 mg Admin: 05/20/17 00:23 Dose: 150 mg Hydrochlorothiazide (Hydrochlorothiazide) 25 mg PO DAILY [facility] Last Admin: 05/20/17 08:13 Dose: 25 mg Insulin Aspart (Novolog) 15 unit SUBCUT TIDAC [facility] Last Admin: 05/20/17 17:10 Dose: Admin: 05/20/17 12:16 Dose: 15 units Admin: 05/20/17 08:13 Dose: 15 units Insulin Aspart (Novolog) 0 unit SUBCUT QID [facility] PRN Reason: Protocol Last Admin: 05/20/17 21:29 Dose: Not Given Insulin Detemir (Levemir) 25 unit SUBCUT BID [facility] Last Admin: 05/20/17 21:15 Dose: 25 units Admin: 05/20/17 08:14 Dose: 25 units Isosorbide Mononitrate (Imdur) 90 mg PO BID [facility] Last Admin: 05/20/17 20:15 Dose: 90 mg Admin: 05/20/17 08:13 Dose: 90 mg Loratadine (Claritin) 10 mg PO DAILY [facility] Last Admin: 05/20/17 08:13 Dose: 10 mg Lorazepam (Ativan) 0.5 - 1 mg PO QID PRN PRN Reason: Anxiety Last Admin: 05/20/17 22:54 Dose: 1 mg Admin: 05/20/17 00:21 Dose: 1 mg Metoprolol Succinate (Toprol Xl) 150 mg PO BID [facility] Last Admin: 05/20/17 20:16 Dose: 150 mg Admin: 05/20/17 08:12 Dose: 150 mg Nitroglycerin (Nitrostat) 0.4 mg SL Q5M PRN PRN Reason: Chest Pain Terazosin HCl (Hytrin) 10 mg PO DAILY [facility] Last Admin: 05/20/17 08:13 Dose: 10 mg Labs: Laboratory Tests 05/19/17 05/19/17 05/19/17 Range/Units 19:10 19:12 19:12 WBC 8.1 (5.0-10.0) 10^3/uL RBC 3.99 L (4.6-6.2) 10^6/uL Hgb 10.4 L D (14.0-18.0) g/dL Hct 32.3 L (40.0-54.0) % MCV 81.0 D (80-100) fL MCH 26.1 L (27.0-34.0) pg MCHC 32.2 L (33.0-35.0) g/dL Plt Count 179 (150-450) 10^3/uL Neut % (Auto) 71.6 (42.2-75.2) % Lymph % (Auto) 19.9 L (20.5-50.1) % Wilkes % (Auto) 5.8 (2-8) % Eos % (Auto) 2.5 (1.0-3.0) % Baso % (Auto) 0.2 (0.0-1.0) % Sodium 139 (135-145) mmol/L Potassium 3.9 (3.6-5.0) mmol/L Chloride 111 (101-111) mmol/L Carbon Dioxide 19.0 L (21.0-31.0) mmol/L Anion Gap 12.9 BUN 55 H (7-18) mg/dL Creatinine 3.2 H (0.6-1.3) mg/dL Est Cr Clr Drug Dosing 25.49 mL/min Estimated GFR (MDRD) 20 BUN/Creatinine Ratio 17.18 Glucose 179 H (74-105) mg/dL Lactic Acid (0.5-2.2) mmol/L Calcium 8.5 (8.4-10.2) mg/dl Phosphorus (2.5-4.6) mg/dL Magnesium (1.8-2.5) mg/dL Total Bilirubin 0.2 (0.2-1.0) mg/dL AST 18 (10-42) IU/L ALT 11 (10-60) IU/L Alkaline Phosphatase 57 (42-121) IU/L Troponin I 0.02 (0.00-0.02) ng/ml B-Natriuretic Peptide 559 H (0-100) pg/ml Total Protein 6.3 L (6.7-8.2) g/dl Albumin 3.2 (3.2-5.5) g/dl Globulin 3.1 Albumin/Globulin Ratio 1.03 Amylase 34 (28-100) U/L Lipase 15 L (22-51) U/L TSH, Ultra Sensitive 1.70 (0.45-5.33) uIu/mL Urine Color (YELLOW) Urine Appearance (CLEAR) Urine pH (5.0-9.0) Ur Specific [place] (1.005-1.030) Urine Protein (NEGATIVE) Urine Glucose (UA) (NEGATIVE) Urine Ketones (NEGATIVE) Urine Occult Blood (NEGATIVE) Urine Nitrite (NEGATIVE) Urine Bilirubin (NEGATIVE) Urine Urobilinogen (0.2-1.0) mg/dL Ur Leukocyte Esterase (NEGATIVE) Urine RBC /HPF Urine WBC (0-5/HPF) /HPF Ur Epithelial Cells /HPF Urine Bacteria (0-FEW/HPF) /HPF 05/19/17 05/19/17 05/19/17 Range/Units 19:12 19:12 21:05 WBC (5.0-10.0) 10^3/uL RBC (4.6-6.2) 10^6/uL Hgb (14.0-18.0) g/dL Hct (40.0-54.0) % MCV (80-100) fL MCH (27.0-34.0) pg MCHC (33.0-35.0) g/dL Plt Count (150-450) 10^3/uL Neut % (Auto) (42.2-75.2) % Lymph % (Auto) (20.5-50.1) % Wilkes % (Auto) (2-8) % Eos % (Auto) (1.0-3.0) % Baso % (Auto) (0.0-1.0) % Sodium (135-145) mmol/L Potassium (3.6-5.0) mmol/L Chloride (101-111) mmol/L Carbon Dioxide (21.0-31.0) mmol/L Anion Gap BUN (7-18) mg/dL Creatinine (0.6-1.3) mg/dL Est Cr Clr Drug Dosing mL/min Estimated GFR (MDRD) BUN/Creatinine Ratio Glucose (74-105) mg/dL Lactic Acid 1.0 (0.5-2.2) mmol/L Calcium (8.4-10.2) mg/dl Phosphorus 4.3 (2.5-4.6) mg/dL Magnesium 2.1 (1.8-2.5) mg/dL Total Bilirubin (0.2-1.0) mg/dL AST (10-42) IU/L ALT (10-60) IU/L Alkaline Phosphatase (42-121) IU/L Troponin I (0.00-0.02) ng/ml B-Natriuretic Peptide (0-100) pg/ml Total Protein (6.7-8.2) g/dl Albumin (3.2-5.5) g/dl Globulin Albumin/Globulin Ratio Amylase (28-100) U/L Lipase (22-51) U/L TSH, Ultra Sensitive (0.45-5.33) uIu/mL Urine Color Yellow (YELLOW) Urine Appearance Clear (CLEAR) Urine pH 6.5 (5.0-9.0) Ur Specific [place] 1.020 (1.005-1.030) Urine Protein >=300 H (NEGATIVE) Urine Glucose (UA) 100 H (NEGATIVE) Urine Ketones Negative (NEGATIVE) Urine Occult Blood Negative (NEGATIVE) Urine Nitrite Negative (NEGATIVE) Urine Bilirubin Negative (NEGATIVE) Urine Urobilinogen 0.2 (0.2-1.0) mg/dL Ur Leukocyte Esterase Negative (NEGATIVE) Urine RBC 0-5 /HPF Urine WBC 0-5 (0-5/HPF) /HPF Ur Epithelial Cells Few /HPF Urine Bacteria Few (0-FEW/HPF) /HPF Meds: Medications Generic Name Dose Route Start Last Admin Trade Name Freq PRN Reason Stop Dose Admin Acetaminophen 650 mg 05/19/17 23:09 Tylenol PO Q4H PRN Pain (Mild 1-3)/fever Hydrocodone Bitart/Acetaminophen 1 tab 05/19/17 23:16 05/20/17 17:55 [place] 325-5 Mg PO 1 tab TID PRN Administration Pain (moderate 4-6) Aspirin 81 mg 05/20/17 09:00 05/20/17 08:13 Aspirin PO 81 mg DAILY [facility] Administration Clopidogrel Bisulfate 75 mg 05/20/17 09:00 05/20/17 08:13 Plavix PO 75 mg DAILY [facility] Administration Ezetimibe 10 mg 05/20/17 09:00 05/20/17 08:13 Zetia PO 10 mg DAILY [facility] Administration Furosemide 60 mg 05/20/17 09:00 05/20/17 08:12 Lasix PO 60 mg DAILY [facility] Administration Gabapentin 1,200 mg 05/20/17 21:00 05/20/17 20:14 Neurontin PO 1,200 mg BEDTIME [facility] Administration Heparin Sodium (Porcine) 5,000 units 05/20/17 00:00 05/21/17 00:40 Heparin Sodium SUBCUT Not Given Q12H [facility] Hydralazine HCl 150 mg 05/19/17 23:30 05/20/17 22:52 Apresoline PO 150 mg Q12H [facility] Administration Hydrochlorothiazide 25 mg 05/20/17 09:00 05/20/17 08:13 Hydrochlorothiazide PO 25 mg DAILY [facility] Administration Insulin Aspart 15 unit 05/20/17 08:00 05/20/17 17:10 Novolog SUBCUT Not Given TIDAC [facility] Insulin Aspart 0 unit 05/20/17 21:00 05/20/17 21:29 Novolog SUBCUT Not Given QID [facility] Protocol Insulin Detemir 25 unit 05/20/17 09:00 05/20/17 21:15 Levemir SUBCUT 25 units BID [facility] Administration Isosorbide Mononitrate 90 mg 05/20/17 09:00 05/20/17 20:15 Imdur PO 90 mg BID [facility] Administration Loratadine 10 mg 05/20/17 09:00 05/20/17 08:13 Claritin PO 10 mg DAILY [facility] Administration Lorazepam 0.5 - 1 mg 05/19/17 23:16 05/20/17 22:54 Ativan PO 1 mg QID PRN Administration Anxiety Metoprolol Succinate 150 mg 05/20/17 09:00 05/20/17 20:16 Toprol Xl PO 150 mg BID [facility] Administration Nitroglycerin 0.4 mg 05/19/17 23:16 Nitrostat SL Q5M PRN Chest Pain Terazosin HCl 10 mg 05/20/17 09:00 05/20/17 08:13 Hytrin PO 10 mg DAILY [facility] Administration - Radiology Interpretation Free Text/Narrative:: CXR no acute process CT head negative - Re-Assessments/Exams Free Text/Narrative Re-Assessment/Exam: 05/21/17 01:[address] Alvarenga, will admit further eval and management generalized weakness. Departure - Departure Time of Disposition: 23:00 Disposition: Admitted As Inpatient 66 Condition: Undetermined Clinical Impression: Weakness Diabetes mellitus type 2 with complications Qualifiers: Diabetes mellitus manager product design insulin use: with manager product design use Qualified Code(s): E11.8 - Type 2 diabetes mellitus with unspecified complications - Discharge Information
[2017-05-19 19:42] LABS: ANION GAP 12.9
[2017-05-19] MEDS ORDERED: Acetaminophen 325 MG Tab PO PRN (23:09)
[2017-05-19] MEDS ORDERED: Nitroglycerin 0.4 MG Tab.SL SL PRN (23:16)
--- NOTE | 2017-05-19 23:26 | PCM.HP ---
H&P History of Present Illness - General Date of Service: 05/19/17 Admit Problem/Dx: Admission Diagnosis/Problem Admission Diagnosis/Problem Weakness Source of Information: Patient, Family History Limitations: Reports: No Limitations - History of Present Illness Initial Comments - Free Text/Narative: Antione Soto is a 62 y/o male with extensive PMH including CHF, CKD IV-V, Chronic anemia who presented to the ED this evening on account of generalized weakness. Spouse reports patient having difficulty staying awake today, very weak, needs assistance walking, staggering gait. He has no associated symptoms. No fever, chills, SOB, cough, chest pain, leg swelling. He was well on Friday and went to work. After returning from work that day he has been complaining of worsening weakness. He denies ill contact. No abdominal pain, diarrhea, nausea or vomiting. He has no focal weakness. No urinary symptoms. Patient is currently being planned to start hemodialysis. He is on weekly iron infusion for his anemia and is due on Friday. Improves with: Reports: None Worsens with: Reports: None Associated Symptoms: Reports: Weakness Lower Back Pain Score (Numeric/FACES): 5 Headache Pain Score (Numeric/FACES): 4 - Related Data Allergies/Adverse Reactions: Allergies Allergy/AdvReac Type Severity Reaction Status Date / Time No Known Allergies Allergy Verified 05/19/17 18:57 Home Medications: Home Meds Hydrocodone/Acetaminophen [Hydrocodone-Acetaminophen 5-325] 1 tab PO TID PRN 03/25 [History] Insulin Aspart [Novolog Flexpen] 15 units SQ TIDAC 12/20/13 [History] Insulin Detemir [Levemir Flexpen] 25 unit SQ BID 01/19/14 [History] Aspirin [Children's Aspirin] 81 mg PO DAILY 05/15/16 [History] Clopidogrel Bisulfate [Plavix] 75 mg PO DAILY 05/15/16 [History] Ezetimibe [Zetia] 10 mg PO DAILY 05/15/16 [History] Gabapentin [Neurontin] 1,200 mg PO BEDTIME 05/15/16 [History] Hydrochlorothiazide 25 mg PO DAILY 05/15/16 [History] LORazepam 0.5 - 1 mg PO QID PRN 05/15/16 [History] Loratadine 10 mg PO DAILY 05/15/16 [History] Metoprolol Succinate [Toprol XL] 150 mg PO BID 05/15/16 [History] Nitroglycerin [Nitrostat] 0.4 mg SL Q5M PRN 05/15/16 [History] Terazosin HCl [Terazosin] 10 mg PO DAILY 05/15/16 [History] Docusate Sodium 100 mg PO BID PRN #60 capsule 12/29/16 [Rx] Isosorbide Mononitrate [Imdur] 90 mg PO BID tab.er 12/29/16 [Rx] hydrALAZINE [Apresoline] 150 mg PO Q12H #90 tablet 12/29/16 [Rx] Furosemide 60 mg PO DAILY #90 tbs 04/05/17 [Rx] Past Medical History HEENT History: Reports: Impaired Vision Other HEENT History: WEARS CORRECTIVE LENSES; UPPER AND LOWER DENTURE PLATE Cardiovascular History: Reports: CAD, Heart Failure, High Cholesterol, Hypertension, Stents Respiratory History: Reports: Other (See Below) Other Respiratory History: recent bronchitis Gastrointestinal History: Reports: Chronic Constipation, Colon Polyp, Gastritis , GERD Other Gastrointestinal History: gall stones Genitourinary History: Reports: BPH, Chronic Renal Insuffiency Musculoskeletal History: Reports: Fracture Other Musculoskeletal History: missing tip of pinkie on left hand Neurological History: Reports: Headaches, Chronic Psychiatric History: Reports: Anxiety Endocrine/Metabolic History: Reports: Diabetes, Type II Hematologic History: Reports: None Immunologic History: Reports: None Oncologic (Cancer) History: Reports: None Dermatologic History: Reports: None - Infectious Disease History Infectious Disease History: Reports: Measles - Past Surgical History Head Surgeries/Procedures: Reports: None Cardiovascular Surgical History: Reports: None, Coronary Artery Stent Respiratory Surgical History: Reports: None Male Surgical History: Reports: None Musculoskeletal Surgical History: Reports: None Other Musculoskeletal Surgeries/Procedures:: LEFT ANKLE SURGERY Oncologic Surgical History: Reports: None Dermatological Surgical History: Reports: None Social & Family History - Family History Family Medical History: Noncontributory : Reports: Renal Disease/Insufficiency Neurological: Reports: TIA Endocrine/Metabolic: Reports: Diabetes, type II - Tobacco Use Smoking Status *Q: Never Smoker Years of Tobacco use: 30 Packs/Tins Daily: 1 Used Tobacco, but Quit: Yes Month Tobacco Last Used: unknown Second Hand Smoke Exposure: No - Caffeine Use Caffeine Use: Reports: Coffee - Alcohol Use Days Per Week of Alcohol Use: 1 Number of Drinks Per Day: 5 Total Drinks Per Week: 5 - Recreational Drug Use Recreational Drug Use: No Drug Use in Last 12 Months: No - Living Situation & Occupation Living situation: Reports: with Family, Occupation: Employed H&P Review of Systems - Review of Systems: Review Of Systems: See Below General: Reports: No Symptoms HEENT: Reports: No Symptoms Pulmonary: Reports: No Symptoms Cardiovascular: Reports: No Symptoms Gastrointestinal: Reports: No Symptoms Genitourinary: Reports: No Symptoms Musculoskeletal: Reports: No Symptoms Skin: Reports: No Symptoms Psychiatric: Reports: No Symptoms Neurological: Reports: No Symptoms Hematologic/Lymphatic: Reports: No Symptoms Immunologic: Reports: No Symptoms Exam - Exam Exam: See Below - Vital Signs Vital Signs: Last Vital Signs Temp 97.9 F 05/19/17 23:02 Pulse 57 L 05/19/17 23:02 Resp 18 05/19/17 23:02 BP 172/82 H 05/19/17 23:02 Pulse Ox 100 05/19/17 23:02 Weight: 247 lb 14.4 oz - Exam General: Alert, Oriented, 4 HEENT: PERRLA, Hearing Intact, Mucosa Moist & [place], Nares Patent, Normal Nasal Septum, Posterior Pharynx Clear, Conjunctiva Clear, EOMI, EACs Clear, TMs Clear Neck: Supple, Trachea Midline, 2 Lungs: Clear to Auscultation, Normal Respiratory Effort Cardiovascular: Regular Rate, Regular Rhythm GI/Abdominal Exam: Normal Bowel Sounds, Soft, Non-Tender, No Organomegaly, No Distention, No Abnormal Bruit, No Mass, Pelvis Stable (Male) Exam: No Hernia, Normal Inspection, Normal Prostate, Circumcised Rectal (Males) Exam: Normal Exam, Normal Rectal Tone, Prostate Normal Back Exam: Normal Inspection, Full Range of Motion, NT Extremities: Normal Inspection, Normal Range of Motion, Non-Tender, No Pedal Edema, Normal Capillary Refill Skin: Warm, Dry, Intact Neurological: Cranial Nerves Intact, Reflexes Equal Bilateral Neuro Extensive - Mental Status: Alert, Oriented x3, Normal Mood/Affect, Normal Cognition Neuro Extensive - Motor, Sensory, Reflexes: CN II-XII Intact, Normal Gait, Normal Reflexes Psychiatric: Alert, Normal Affect, Normal Mood - Patient Data Result Diagrams: 05/19/17 19:12 05/19/17 19:12 *Q Meaningful Use (ADM) - VTE *Q VTE Criteria *Q: - Stroke *Q Stroke Criteria *Q: - AMI *Q AMI Criteria *Q: - Problem List (1) Weakness SNOMED Code(s): 98961951 ICD Code: R53.1 - WEAKNESS Status: Acute Current Visit: Yes (2) Bronchitis SNOMED Code(s): 54031041 ICD Code: J40 - BRONCHITIS, NOT SPECIFIED ACUTE OR CHRONIC Status: Acute Current Visit: No Problem List Initiated/Reviewed/Updated: Yes Orders Last 24hrs: Active Orders 24 hr Category Date Time Status Patient Status [ADT] Routine ADT 05/19/17 23:09 Ordered Bedrest Bathroom Privileges [RC] ASDIRECTED Care 05/19/17 23:09 Ordered Blood Glucose Check, Bedside [RC] TIDMEALS Care 05/19/17 23:09 Ordered Oxygen Therapy [RC] PRN Care 05/19/17 23:09 Ordered Up With Assistance [RC] ASDIRECTED Care 05/19/17 23:09 Ordered Up to Chair [RC] ASDIRECTED Care 05/19/17 23:09 Ordered VTE/DVT Education [RC] PER UNIT ROUTINE Care 05/19/17 23:09 Ordered Vital Signs [RC] Q4H Care 05/19/17 23:09 Ordered Consult to Occupational Therapy [OT Evaluation and Cons 05/19/17 23:22 Ordered Treatment] [CONS] Routine Consult to Physical Therapy [PT Evaluation and Cons 05/19/17 23:21 Ordered Treatment] [CONS] Routine Heart Healthy Diet [DIET] Diet 05/19/17 Breakfast Ordered MAGNESIUM [CHEM] Stat Lab 05/19/17 23:09 Ordered PHOSPHORUS [CHEM] Stat Lab 05/19/17 23:09 Ordered Acetaminophen [Tylenol] Med 05/19/17 23:09 Ordered 650 mg PO Q4H PRN Acetaminophen/HYDROcodone [[place] 325-5 MG] Med 05/19/17 23:16 Ordered 1 tab PO TID PRN Aspirin Med 05/20/17 09:00 Ordered 81 mg PO DAILY Cefpodoxime Proxetil Med 05/20/17 09:00 Ordered 200 mg PO DAILY Clopidogrel [Plavix] Med 05/20/17 09:00 Ordered 75 mg PO DAILY Ezetimibe [Zetia] Med 05/20/17 09:00 Ordered 10 mg PO DAILY Furosemide [Lasix] Med 05/20/17 09:00 Ordered 60 mg PO DAILY Gabapentin Med 05/20/17 21:00 Ordered 1,200 mg PO BEDTIME Heparin Sodium Med 05/19/17 23:15 Ordered 5,000 units SUBCUT Q12H Hydrochlorothiazide Med 05/20/17 09:00 Ordered 25 mg PO DAILY Insulin Aspart [NovoLOG] Med 05/20/17 08:00 Ordered 15 unit SUBCUT TIDAC Insulin Detemir [Levemir] Med 05/20/17 09:00 Ordered 25 unit SUBCUT BID Isosorbide Mononitrate [Imdur] Med 05/20/17 09:00 Ordered 90 mg PO BID LORazepam [Ativan] Med 05/19/17 23:16 Ordered 0.5 - 1 mg PO QID PRN Loratadine [Claritin] Med 05/20/17 09:00 Ordered 10 mg PO DAILY Metoprolol Succinate [Toprol XL] Med 05/20/17 09:00 Ordered 150 mg PO BID Nitroglycerin [Nitrostat] Med 05/19/17 23:16 Ordered 0.4 mg SL Q5M PRN Terazosin [Hytrin] Med 05/20/17 09:00 Ordered 10 mg PO DAILY hydrALAZINE [Apresoline] Med 05/19/17 23:30 Ordered 150 mg PO Q12H Resuscitation Status Routine Resus Stat 05/19/17 23:09 Ordered Assessment/Plan Comment:: #Generalized weakness -Etiology unclear -will admit for further evaluation -PT/OT -Ensure adequate PO hydration -Reconcile all home meds -TSH -Follow cultures -Fall precautions. -Heart healthy diet -Full code
[2017-05-20] MEDS: LORazepam 1 MG Tab PO PRN ×2 (00:21→22:54)
[2017-05-20] MEDS: Acetaminophen/HYDROcodone 325-5 MG Tab PO PRN ×3 (00:21→17:55)
[2017-05-20] MEDS: hydrALAZINE 25 MG Tab PO SCH ×3 (00:23→22:52)
[2017-05-20] MEDS: Heparin Sodium 5,000 Units/ML Vial SUBCUT SCH ×3 (00:25→22:54)
[2017-05-20] MEDS: Metoprolol Succinate 50 MG Tab.ER PO SCH ×2 (08:12→20:16)
[2017-05-20] MEDS: Furosemide 20 MG Tab PO SCH (08:12)
[2017-05-20] MEDS: Terazosin 5 MG Cap PO SCH (08:13)
[2017-05-20] MEDS: Loratadine 10 MG Tab PO SCH (08:13)
[2017-05-20] MEDS: Insulin Aspart 100 Units/ML 3 ML Pen SUBCUT SCH ×4 (08:13→21:29)
[2017-05-20] MEDS: Isosorbide Mononitrate 30 MG Tab.ER PO SCH ×2 (08:13→20:15)
[2017-05-20] MEDS: Aspirin 81 MG Tab.Chew PO SCH (08:13)
[2017-05-20] MEDS: Clopidogrel 75 MG Tab PO SCH (08:13)
[2017-05-20] MEDS: Ezetimibe 10 MG Tab PO SCH (08:13)
[2017-05-20] MEDS: Hydrochlorothiazide 25 MG Tab PO SCH (08:13)
[2017-05-20] MEDS: Insulin Detemir 100 Units/ML 3 ML Pen SUBCUT SCH ×2 (08:14→21:15)
[2017-05-20] MEDS ORDERED: CEFPODOXIME PROXETIL 200 MG PO SCH (09:00)
--- NOTE | 2017-05-20 12:08 | PCM.PN ---
- General Info Date of Service: 05/20/17 Admission Dx/Problem (Free Text): Admission Diagnosis/Problem Admission Diagnosis/Problem Weakness Subjective Update: Antione Soto is a 62 y/o male with extensive PMH including CHF, CKD IV-V, Chronic anemia who presented to the ED on 05/19/2017 on account of generalized weakness. He was admitted for further evaluation and for PT/OT Seen today No complaints Feeling better this morning No overnight events Functional Status: Reports: Pain Controlled - Review of Systems General: Reports: No Symptoms HEENT: Reports: No Symptoms Pulmonary: Reports: No Symptoms Cardiovascular: Reports: No Symptoms Gastrointestinal: Reports: No Symptoms Genitourinary: Reports: No Symptoms Musculoskeletal: Reports: No Symptoms Skin: Reports: No Symptoms Neurological: Reports: No Symptoms Psychiatric: Reports: No Symptoms - Patient Data Vitals - Most Recent: Last Vital Signs Temp 98.6 F 05/20/17 10:50 Pulse 54 L 05/20/17 10:50 Resp 18 05/20/17 10:50 BP 121/58 L 05/20/17 10:50 Pulse Ox 98 05/20/17 10:50 Weight - Most Recent: 247 lb 14.4 oz I&O - Last 24 Hours: Intake & Output 05/19/17 05/20/17 05/20/17 22:59 06:59 14:59 Intake Total 350 Output Total 350 Balance -350 350 Lab Results Last 24 Hours: Laboratory Results - last 24 hr 05/20/17 05/20/17 Range/Units 08:00 11:13 POC Glucose 101 93 (70-105) mg/dl Med Orders - Current: Current Medications Acetaminophen (Tylenol) 650 mg PO Q4H PRN PRN Reason: Pain (Mild 1-3)/fever Hydrocodone Bitart/Acetaminophen ([place] 325-5 Mg) 1 tab PO TID PRN PRN Reason: Pain (moderate 4-6) Last Admin: 05/20/17 08:13 Dose: 1 tab Aspirin (Aspirin) 81 mg PO DAILY [facility] Last Admin: 05/20/17 08:13 Dose: 81 mg Clopidogrel Bisulfate (Plavix) 75 mg PO DAILY [facility] Last Admin: 05/20/17 08:13 Dose: 75 mg Ezetimibe (Zetia) 10 mg PO DAILY [facility] Last Admin: 05/20/17 08:13 Dose: 10 mg Furosemide (Lasix) 60 mg PO DAILY [facility] Last Admin: 05/20/17 08:12 Dose: 60 mg Gabapentin (Neurontin) 1,200 mg PO BEDTIME [facility] Heparin Sodium (Porcine) (Heparin Sodium) 5,000 units SUBCUT Q12H [facility] Last Admin: 05/20/17 00:25 Dose: 5,000 units Hydralazine HCl (Apresoline) 150 mg PO Q12H [facility] Last Admin: 05/20/17 00:23 Dose: 150 mg Hydrochlorothiazide (Hydrochlorothiazide) 25 mg PO DAILY [facility] Last Admin: 05/20/17 08:13 Dose: 25 mg Insulin Aspart (Novolog) 15 unit SUBCUT TIDAC [facility] Last Admin: 05/20/17 08:13 Dose: 15 units Insulin Detemir (Levemir) 25 unit SUBCUT BID [facility] Last Admin: 05/20/17 08:14 Dose: 25 units Isosorbide Mononitrate (Imdur) 90 mg PO BID [facility] Last Admin: 05/20/17 08:13 Dose: 90 mg Loratadine (Claritin) 10 mg PO DAILY [facility] Last Admin: 05/20/17 08:13 Dose: 10 mg Lorazepam (Ativan) 0.5 - 1 mg PO QID PRN PRN Reason: Anxiety Last Admin: 05/20/17 00:21 Dose: 1 mg Metoprolol Succinate (Toprol Xl) 150 mg PO BID [facility] Last Admin: 05/20/17 08:12 Dose: 150 mg Nitroglycerin (Nitrostat) 0.4 mg SL Q5M PRN PRN Reason: Chest Pain Terazosin HCl (Hytrin) 10 mg PO DAILY [facility] Last Admin: 05/20/17 08:13 Dose: 10 mg - Exam General: Alert, Oriented HEENT: Pupils Equal, Pupils Reactive, EOMI, Mucous Membr. Moist/[place] Neck: Supple Lungs: Clear to Auscultation, Normal Respiratory Effort Cardiovascular: Regular Rate, Regular Rhythm GI/Abdominal Exam: Normal Bowel Sounds, Soft, Non-Tender, No Organomegaly, No Distention, No Abnormal Bruit, No Mass, Pelvis Stable (Male) Exam: No Hernia, Normal Inspection, Normal Prostate, Circumcised Back Exam: Normal Inspection, Full Range of Motion Extremities: Normal Inspection, Normal Range of Motion, Non-Tender, No Pedal Edema, Normal Capillary Refill Skin: Warm, Dry, Intact Wound/Incisions: Healing Well Neurological: No New Focal Deficit Psy/Mental Status: Alert, Normal Affect, Normal Mood - Problem List & Annotations (1) Weakness SNOMED Code(s): 37693114 Code(s): R53.1 - WEAKNESS Status: Acute Current Visit: Yes (2) Bronchitis SNOMED Code(s): 27698746 Code(s): J40 - BRONCHITIS, NOT SPECIFIED ACUTE OR CHRONIC Status: Acute Current Visit: No - Problem List Review Problem List Initiated/Reviewed/Updated: Yes - My Orders Last 24 Hours: My Active Orders 05/19/17 23:16 Acetaminophen/HYDROcodone [[place] 325-5 MG] 1 tab PO TID PRN LORazepam [Ativan] 0.5 - 1 mg PO QID PRN Nitroglycerin [Nitrostat] 0.4 mg SL Q5M PRN 05/19/17 23:21 Consult to Physical Therapy [PT Evaluation and Treatment] [CONS] Routine 05/19/17 23:22 Consult to Occupational Therapy [OT Evaluation and Treatment] [CONS] Routine 05/19/17 23:30 hydrALAZINE [Apresoline] 150 mg PO Q12H 05/20/17 08:00 Insulin Aspart [NovoLOG] 15 unit SUBCUT TIDAC 05/20/17 09:00 Aspirin 81 mg PO DAILY Clopidogrel [Plavix] 75 mg PO DAILY Ezetimibe [Zetia] 10 mg PO DAILY Furosemide [Lasix] 60 mg PO DAILY Hydrochlorothiazide 25 mg PO DAILY Insulin Detemir [Levemir] 25 unit SUBCUT BID Isosorbide Mononitrate [Imdur] 90 mg PO BID Loratadine [Claritin] 10 mg PO DAILY Metoprolol Succinate [Toprol XL] 150 mg PO BID Terazosin [Hytrin] 10 mg PO DAILY 05/20/17 12:04 TSH ULTRASENSITIVE [CHEM] Routine 05/20/17 21:00 Gabapentin [Neurontin] 1,200 mg PO BEDTIME - Plan Plan:: #Generalized weakness -Etiology unclear -PT/OT -Ensure adequate PO hydration -Continue all current care -TSH -Follow cultures -Fall precautions. -Heart healthy diet -Full code
[2017-05-20] MEDS ORDERED: Gabapentin 400 MG Cap PO SCH (21:00)
[2017-05-21] MEDS: Heparin Sodium 5,000 Units/ML Vial SUBCUT SCH (00:40)
[2017-05-21 08:28] VITALS: BP 138/66
[2017-05-21] MEDS: Furosemide 20 MG Tab PO SCH (08:56)
[2017-05-21] MEDS: Isosorbide Mononitrate 30 MG Tab.ER PO SCH (08:56)
[2017-05-21] MEDS: Loratadine 10 MG Tab PO SCH (08:56)
[2017-05-21] MEDS: Metoprolol Succinate 50 MG Tab.ER PO SCH (08:56)
[2017-05-21] MEDS: Ezetimibe 10 MG Tab PO SCH (08:56)
[2017-05-21] MEDS: Clopidogrel 75 MG Tab PO SCH (08:57)
[2017-05-21] MEDS: Aspirin 81 MG Tab.Chew PO SCH (08:57)
[2017-05-21] MEDS: Hydrochlorothiazide 25 MG Tab PO SCH (08:57)
[2017-05-21] MEDS: Terazosin 5 MG Cap PO SCH (08:57)
[2017-05-21] MEDS: Insulin Detemir 100 Units/ML 3 ML Pen SUBCUT SCH (08:58)
[2017-05-21] MEDS: Insulin Aspart 100 Units/ML 3 ML Pen SUBCUT SCH ×2 (08:59)
--- NOTE | 2017-05-21 10:42 | PCM.DCSUM1 ---
Discharge Summary - Hospital Course Free Text/Narrative:: Antione Soto is a 62 y/o male with extensive PMH including CHF, CKD IV-V, Chronic anemia who presented to the ED on 05/19/2017 on account of generalized weakness. He was admitted for further evaluation and for PT/OT. His symptoms have significantly improved and is being discharge home to continue PT. His is been advised to keep his follow up appointments. - Discharge Data Discharge Date: 05/21/17 Discharge Disposition: Home, Self-Care 01 Condition: Good - Discharge Diagnosis/Problem(s) (1) Weakness SNOMED Code(s): 98490332 ICD Code: R53.1 - WEAKNESS Status: Acute Current Visit: Yes (2) Bronchitis SNOMED Code(s): 59499783 ICD Code: J40 - BRONCHITIS, NOT SPECIFIED ACUTE OR CHRONIC Status: Acute Priority: Medium Current Visit: Yes - Patient Summary/Data Consults: Consultations 05/19/17 23:21 Consult to Physical Therapy [PT Evaluation and Treatment] [CONS] Routine 05/19/17 23:22 Consult to Occupational Therapy [OT Evaluation and Treatment] [CONS] Routine - Patient Instructions Fluid Restriction: 1500 mL Activity: As Tolerated Showering/Bathing: May Shower Notify Provider of: Fever, Increased Pain, Swelling and Redness, Nausea and/or Vomiting - Discharge Plan Home Medications: Home Meds Hydrocodone/Acetaminophen [Hydrocodone-Acetaminophen 5-325] 1 tab PO TID PRN 03/25 [History] Insulin Detemir [Levemir Flexpen] 25 unit SQ BID 01/19/14 [History] Aspirin [Children's Aspirin] 81 mg PO DAILY 05/15/16 [History] Clopidogrel Bisulfate [Plavix] 75 mg PO DAILY 05/15/16 [History] Ezetimibe [Zetia] 10 mg PO DAILY 05/15/16 [History] Gabapentin [Neurontin] 1,200 mg PO BEDTIME 05/15/16 [History] Hydrochlorothiazide 25 mg PO DAILY 05/15/16 [History] LORazepam 0.5 - 1 mg PO QID PRN 05/15/16 [History] Loratadine 10 mg PO DAILY 05/15/16 [History] Metoprolol Succinate [Toprol XL] 150 mg PO BID 05/15/16 [History] Nitroglycerin [Nitrostat] 0.4 mg SL Q5M PRN 05/15/16 [History] Terazosin HCl [Terazosin] 10 mg PO DAILY 05/15/16 [History] Docusate Sodium 100 mg PO BID PRN #60 capsule 12/29/16 [Rx] Isosorbide Mononitrate [Imdur] 90 mg PO BID tab.er 12/29/16 [Rx] hydrALAZINE [Apresoline] 150 mg PO Q12H #90 tablet 12/29/16 [Rx] Furosemide 60 mg PO DAILY #90 tbs 04/05/17 [Rx] Acetaminophen [Tylenol] 650 mg PO Q4H PRN tablet 05/21/17 [Rx] Insulin Aspart [NovoLOG] See Protocol SUBCUT TIDAC 05/21/17 [History] Forms: ED Department Discharge Referrals: PCP,None [Primary Care Provider] - - Discharge Summary/Plan Comment DC Time >30 min.: Yes Discharge Summary/Plan Comment: Home with PT. - Patient Data Vitals - Most Recent: Last Vital Signs Temp 98.2 F 05/21/17 08:00 Pulse 56 L 05/21/17 08:56 Resp 20 05/21/17 08:00 BP 138/66 05/21/17 08:57 Pulse Ox 95 05/21/17 08:00 Weight - Most Recent: 245 lb 12.8 oz I&O - Last 24 hours: Intake & Output 05/20/17 05/21/17 05/21/17 22:59 06:59 14:59 Intake Total 880 Balance 880 Lab Results - Last 24 hrs: Laboratory Results - last 24 hr 05/20/17 05/20/17 05/20/17 Range/Units 11:13 17:04 21:01 POC Glucose 93 68 L 108 H (70-105) mg/dl 05/21/17 Range/Units 07:44 POC Glucose 84 (70-105) mg/dl Med Orders - Current: Current Medications Acetaminophen (Tylenol) 650 mg PO Q4H PRN PRN Reason: Pain (Mild 1-3)/fever Hydrocodone Bitart/Acetaminophen ([place] 325-5 Mg) 1 tab PO TID PRN PRN Reason: Pain (moderate 4-6) Last Admin: 05/20/17 17:55 Dose: 1 tab Aspirin (Aspirin) 81 mg PO DAILY [facility] Last Admin: 05/21/17 08:57 Dose: 81 mg Clopidogrel Bisulfate (Plavix) 75 mg PO DAILY [facility] Last Admin: 05/21/17 08:57 Dose: 75 mg Ezetimibe (Zetia) 10 mg PO DAILY [facility] Last Admin: 05/21/17 08:56 Dose: 10 mg Furosemide (Lasix) 60 mg PO DAILY [facility] [place] Last Admin: 05/21/17 08:56 Dose: 60 mg Gabapentin (Neurontin) 1,200 mg PO BEDTIME [facility] [place] Last Admin: 05/20/17 20:14 Dose: 1,200 mg Heparin Sodium (Porcine) (Heparin Sodium) 5,000 units SUBCUT Q12H [facility] [place] Last Admin: 05/21/17 00:40 Dose: Not Given Hydralazine HCl (Apresoline) 150 mg PO Q12H [facility] [place] Last Admin: 05/20/17 22:52 Dose: 150 mg Hydrochlorothiazide (Hydrochlorothiazide) 25 mg PO DAILY [facility] Last Admin: 05/21/17 08:57 Dose: 25 mg Insulin Aspart (Novolog) 15 unit SUBCUT TIDAC [facility] Last Admin: 05/21/17 08:59 Dose: Not Given Insulin Aspart (Novolog) 0 unit SUBCUT QID [facility] PRN Reason: Protocol Last Admin: 05/21/17 08:59 Dose: Not Given Insulin Detemir (Levemir) 25 unit SUBCUT BID [facility] Last Admin: 05/21/17 08:58 Dose: 25 units Isosorbide Mononitrate (Imdur) 90 mg PO BID [facility] Last Admin: 05/21/17 08:56 Dose: 90 mg Loratadine (Claritin) 10 mg PO DAILY [facility] Last Admin: 05/21/17 08:56 Dose: 10 mg Lorazepam (Ativan) 0.5 - 1 mg PO QID PRN PRN Reason: Anxiety Last Admin: 05/20/17 22:54 Dose: 1 mg Metoprolol Succinate (Toprol Xl) 150 mg PO BID [facility] Last Admin: 05/21/17 08:56 Dose: 150 mg Nitroglycerin (Nitrostat) 0.4 mg SL Q5M PRN PRN Reason: Chest Pain Terazosin HCl (Hytrin) 10 mg PO DAILY [facility] Last Admin: 05/21/17 08:57 Dose: 10 mg *Q Meaningful Use (DIS) - VTE *Q VTE Criteria *Q: - Stroke *Q Stroke Criteria *Q: - AMI *Q AMI Criteria *Q:
--- NOTE | 2017-05-22 16:07 | EKG ---
05/19/2017 - ADAMA QUINTANILLA - This 12-lead EKG shows a sinus bradycardia with a ventricular rate of 55. There is a nonspecific intraventricular conduction defect with left axis deviation. No acute ST-T wave changes. [facility] /[id number]
== END 2017-05-21 12:19 | disposition home or self-care (01) ==
LOC: DL.ED 18:47 → DL.MS 22:37 → UNDOADMOB 22:37 → DL.MS 22:43 → UNDOADMOB 22:43 → DL.MS 23:09
PROVIDERS: ADMIT Student in an Organized Health Care Education/Training Program; ATTEND Student in an Organized Health Care Education/Training Program
DX: R53.1 Weakness (principal); J40 Bronchitis, not specified as acute or chronic; E11.22 Type 2 diabetes mellitus with diabetic chronic kidney disease; I13.0 Hypertensive heart and chronic kidney disease with heart failure and stage 1 through stage 4 chronic kidney disease, or unspecified chronic kidney disease; N18.4 Chronic kidney disease, stage 4 (severe); I25.10 Atherosclerotic heart disease of native coronary artery without angina pectoris; N40.0 Benign prostatic hyperplasia without lower urinary tract symptoms; K59.09 Other constipation; E78.00 Pure hypercholesterolemia, unspecified; F41.9 Anxiety disorder, unspecified; K21.9 Gastro-esophageal reflux disease without esophagitis; Z79.82 Long term (current) use of aspirin; Z79.4 Long term (current) use of insulin; Z79.899 Other long term (current) drug therapy; Z95.5 Presence of coronary angioplasty implant and graft
CPT/HCPCS: 36415; 70450; 71045; 72131; 80053; 81001; 82150; 82962; 83605; 83690; 83735; 83880; 84100; 84443; 84484; 85025; 87040; 87804; 93005; 97161; 97165; 99285; A9270; J1644; J1815; 87077; 87186; 96372; G0378

== ENCOUNTER 2017-05-27 11:39 | Emergency (ER) | payer BC, OTHER ==
--- NOTE | 2017-05-27 11:51 | EDM.PDOC ---
ED HPI GENERAL MEDICAL PROBLEM - General Stated Complaint: RUQ PAIN, ELEVATED CREATINE Time Seen by Provider: 05/27/17 11:40 Source of Information: Reports: Patient, Provider History Limitations: Reports: No Limitations - History of Present Illness INITIAL COMMENTS - FREE TEXT/NARRATIVE: This 62 yo male patient was sent to the ED via [facility] from the [facility] due to RUQ abdominal pain, increased shortness of breath and elevated creatinine level. The patient reports his abdominal pain started on Friday (05/25) and has continued to get worse. The patient has been seen with similar symptoms in the past. The patient reports he was seen by the surgeon, but surgery was postponed due to a cardiac stent previously placed. The patient was seen by Dr. Rodriguez last week and reports that he was told everything is "fine". 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: Other Medication(s) (Hydrocodone ) Right Upper Abdomen Pain Score (Numeric/FACES): 7 - Related Data Allergies Allergy/AdvReac Type Severity Reaction Status Date / Time No Known Allergies Allergy Verified 05/19/17 18:57 Home Meds: Home Meds Hydrocodone/Acetaminophen [Hydrocodone-Acetaminophen 5-325] 1 tab PO TID PRN 03/25 [History] Insulin Detemir [Levemir Flexpen] 26 unit SQ BID 01/19/14 [History] Aspirin [Children's Aspirin] 81 mg PO DAILY 05/15/16 [History] Clopidogrel Bisulfate [Plavix] 75 mg PO DAILY 05/15/16 [History] Ezetimibe [Zetia] 10 mg PO DAILY 05/15/16 [History] Gabapentin [Neurontin] 300 mg PO BEDTIME 05/15/16 [History] Hydrochlorothiazide 25 mg PO DAILY 05/15/16 [History] LORazepam 0.5 - 1 mg PO QID PRN 05/15/16 [History] Loratadine 10 mg PO DAILY 05/15/16 [History] Metoprolol Succinate [Toprol XL] 150 mg PO BID 05/15/16 [History] Nitroglycerin [Nitrostat] 0.4 mg SL Q5M PRN 05/15/16 [History] Terazosin HCl [Terazosin] 5 mg PO DAILY 05/15/16 [History] Docusate Sodium 100 mg PO BID PRN #60 capsule 12/29/16 [Rx] hydrALAZINE [Apresoline] 150 mg PO Q12H #90 tablet 12/29/16 [Rx] Furosemide 60 mg PO DAILY #90 tbs 04/05/17 [Rx] Acetaminophen [Tylenol] 650 mg PO Q4H PRN tablet 05/21/17 [Rx] Insulin Aspart [NovoLOG] See Protocol SUBCUT TIDAC 05/21/17 [History] Isosorbide Mononitrate [Imdur] 120 mg PO BID 05/27/17 [History] Past Medical History HEENT History: Reports: Impaired Vision Other HEENT History: WEARS CORRECTIVE LENSES; UPPER AND LOWER DENTURE PLATE Cardiovascular History: Reports: CAD, Heart Failure, High Cholesterol, Hypertension, Stents Respiratory History: Reports: Other (See Below) Other Respiratory History: recent bronchitis Gastrointestinal History: Reports: Chronic Constipation, Colon Polyp, Gastritis , GERD Other Gastrointestinal History: gall stones Genitourinary History: Reports: BPH, Chronic Renal Insuffiency Musculoskeletal History: Reports: Fracture Other Musculoskeletal History: missing tip of pinkie on left hand Neurological History: Reports: Headaches, Chronic Psychiatric History: Reports: Anxiety Endocrine/Metabolic History: Reports: Diabetes, Type II Hematologic History: Reports: None Immunologic History: Reports: None Oncologic (Cancer) History: Reports: None Dermatologic History: Reports: None - Infectious Disease History Infectious Disease History: Reports: Measles - Past Surgical History Head Surgeries/Procedures: Reports: None Cardiovascular Surgical History: Reports: None, Coronary Artery Stent Respiratory Surgical History: Reports: None Male Surgical History: Reports: None Musculoskeletal Surgical History: Reports: None Other Musculoskeletal Surgeries/Procedures:: LEFT ANKLE SURGERY Oncologic Surgical History: Reports: None Dermatological Surgical History: Reports: None Social & Family History - Family History Family Medical History: Noncontributory : Reports: Renal Disease/Insufficiency Neurological: Reports: TIA Endocrine/Metabolic: Reports: Diabetes, type II - Tobacco Use Smoking Status *Q: Never Smoker Years of Tobacco use: 30 Packs/Tins Daily: 1 Used Tobacco, but Quit: Yes Month Tobacco Last Used: unknown Second Hand Smoke Exposure: No - Caffeine Use Caffeine Use: Reports: Coffee Caffeine Use Comment: decaf coffee - Alcohol Use Days Per Week of Alcohol Use: 1 Number of Drinks Per Day: 5 Total Drinks Per Week: 5 - Recreational Drug Use Recreational Drug Use: No Drug Use in Last 12 Months: No - Living Situation & Occupation Living situation: Reports: with Family, Occupation: Employed ED ROS GENERAL - Review of Systems Review Of Systems: ROS reveals no pertinent complaints other than HPI. ED EXAM, GENERAL - Physical Exam Exam: See Below Exam Limited By: No Limitations General Appearance: Alert, WD/WN, Moderate Distress Eye Exam: Bilateral Eye: EOMI, Normal Inspection, PERRL Ears: Normal External Exam, Normal Canal, Hearing Grossly Normal, Normal TMs Nose: Normal Inspection, Normal Mucosa, No Blood Throat/Mouth: Normal Inspection, Normal Lips, Normal Teeth, Normal Gums, Normal Oropharynx, Normal Voice, No Airway Compromise Head: Atraumatic, Normocephalic Neck: Normal Inspection, Supple, Non-Tender, Full Range of Motion Respiratory/Chest: No Respiratory Distress, Lungs Clear, Normal Breath Sounds, No Accessory Muscle Use, Chest Non-Tender Cardiovascular: Normal Peripheral Pulses, Regular Rate, Rhythm, No Edema, No Gallop, No JVD, No Murmur, No Rub GI/Abdominal: Normal Bowel Sounds, Guarding, Tender (RUQ) (Male) Exam: Deferred Rectal (Males) Exam: Deferred Back Exam: Normal Inspection, Full Range of Motion, NT Extremities: Normal Inspection, Normal Range of Motion, Non-Tender, Normal Capillary Refill, No Pedal Edema Neurological: Alert, Oriented, CN II-XII Intact, Normal Cognition, Normal Gait, Normal Reflexes, No Motor/Sensory Deficits Psychiatric: Normal Affect, Normal Mood Skin Exam: Warm, Dry, Intact, Normal Color, No Rash Lymphatic: No Adenopathy Course - Vital Signs Last Recorded V/S: Last Vital Signs Temp 36.9 C 05/27/17 11:40 Pulse 68 05/27/17 11:40 Resp 22 H 05/27/17 11:40 BP 111/40 L 05/27/17 11:40 Pulse Ox 100 05/27/17 11:40 - Orders/Labs/Meds Orders: Active Orders 24 hr Category Date Time Status Piperacillin/Tazobactam [Zosyn] 3.375 gm Med 05/27/17 13:40 Ordered Sodium Chloride 0.9% [Normal Saline] 100 ml IV ONETIME Sodium Chloride 0.9% [Normal Saline] 1,000 ml Med 05/27/17 12:00 Active IV ASDIRECTED Medication Orders Sodium Chloride (Normal Saline) 1,000 mls @ 999 mls/hr IV ASDIRECTED ELVI Last Admin: 05/27/17 12:02 Dose: 999 mls/hr Piperacillin Sod/Tazobactam (Sod 3.375 gm/ Sodium Chloride) 100 mls @ 200 mls/ hr IV ONETIME ONE Stop: 05/27/17 14:09 Labs: Laboratory Tests 05/27/17 05/27/17 05/27/17 Range/Units 11:48 11:48 11:48 WBC 14.3 H (5.0-10.0) 10^3/uL RBC 3.50 L (4.6-6.2) 10^6/uL Hgb 9.0 L (14.0-18.0) g/dL Hct 28.4 L (40.0-54.0) % MCV 81.1 (80-100) fL MCH 25.7 L (27.0-34.0) pg MCHC 31.7 L (33.0-35.0) g/dL Plt Count 140 L (150-450) 10^3/uL Neut % (Auto) 86.5 H (42.2-75.2) % Lymph % (Auto) 8.3 L (20.5-50.1) % [place] % (Auto) 4.5 (2-8) % Eos % (Auto) 0.6 L (1.0-3.0) % Baso % (Auto) 0.1 (0.0-1.0) % Sodium (135-145) mmol/L Potassium (3.6-5.0) mmol/L Chloride (101-111) mmol/L Carbon Dioxide (21.0-31.0) mmol/L Anion Gap BUN (7-18) mg/dL Creatinine (0.6-1.3) mg/dL Est Cr Clr Drug Dosing mL/min Estimated GFR (MDRD) BUN/Creatinine Ratio Glucose (74-105) mg/dL Calcium (8.4-10.2) mg/dl Magnesium 2.2 (1.8-2.5) mg/dL Total Bilirubin (0.2-1.0) mg/dL AST (10-42) IU/L ALT (10-60) IU/L Alkaline Phosphatase (42-121) IU/L Ammonia 16 (11-35) umol/L Total Protein (6.7-8.2) g/dl Albumin (3.2-5.5) g/dl Globulin Albumin/Globulin Ratio Amylase 23 L (28-100) U/L Lipase 9 L (22-51) U/L Urine Color (YELLOW) Urine Appearance (CLEAR) Urine pH (5.0-9.0) Ur Specific Johnson (1.005-1.030) Urine Protein (NEGATIVE) Urine Glucose (UA) (NEGATIVE) Urine Ketones (NEGATIVE) Urine Occult Blood (NEGATIVE) Urine Nitrite (NEGATIVE) Urine Bilirubin (NEGATIVE) Urine Urobilinogen (0.2-1.0) mg/dL Ur Leukocyte Esterase (NEGATIVE) Urine RBC /HPF Urine WBC (0-5/HPF) /HPF Ur Epithelial Cells /HPF Amorphous Sediment (0/HPF) /HPF Urine Bacteria (0-FEW/HPF) /HPF Urine Mucus /LPF Salicylates < 4 Urine Opiates Screen (NEGATIVE) Ur Oxycodone Screen (NEGATIVE) Urine Methadone Screen (NEGATIVE) Acetaminophen < 10 Ur Barbiturates Screen (NEGATIVE) U Tricyclic Antidepress (NEGATIVE) Ur Phencyclidine Scrn (NEGATIVE) Ur Amphetamine Screen (NEGATIVE) U Methamphetamines Scrn (NEGATIVE) Urine MDMA Screen (NEGATIVE) U Benzodiazepines Scrn (NEGATIVE) Urine Cocaine Screen (NEGATIVE) U Marijuana (THC) Screen (NEGATIVE) Ethyl Alcohol < 5 mg/dL 05/27/17 05/27/17 05/27/17 Range/Units 11:48 12:00 12:00 WBC (5.0-10.0) 10^3/uL RBC (4.6-6.2) 10^6/uL Hgb (14.0-18.0) g/dL Hct (40.0-54.0) % MCV (80-100) fL MCH (27.0-34.0) pg MCHC (33.0-35.0) g/dL Plt Count (150-450) 10^3/uL Neut % (Auto) (42.2-75.2) % Lymph % (Auto) (20.5-50.1) % [place] % (Auto) (2-8) % Eos % (Auto) (1.0-3.0) % Baso % (Auto) (0.0-1.0) % Sodium 137 (135-145) mmol/L Potassium 4.0 (3.6-5.0) mmol/L Chloride 107 (101-111) mmol/L Carbon Dioxide 19.0 L (21.0-31.0) mmol/L Anion Gap 15.0 BUN 67 H (7-18) mg/dL Creatinine 4.1 H (0.6-1.3) mg/dL Est Cr Clr Drug Dosing 19.90 mL/min Estimated GFR (MDRD) 15 BUN/Creatinine Ratio 16.34 Glucose 146 H (74-105) mg/dL Calcium 8.8 (8.4-10.2) mg/dl Magnesium (1.8-2.5) mg/dL Total Bilirubin 1.9 H (0.2-1.0) mg/dL AST 17 (10-42) IU/L ALT 14 (10-60) IU/L Alkaline Phosphatase 82 (42-121) IU/L Ammonia (11-35) umol/L Total Protein 6.3 L (6.7-8.2) g/dl Albumin 3.0 L (3.2-5.5) g/dl Globulin 3.3 Albumin/Globulin Ratio 0.91 Amylase (28-100) U/L Lipase (22-51) U/L Urine Color Yellow (YELLOW) Urine Appearance Clear (CLEAR) Urine pH 6.0 (5.0-9.0) Ur Specific Johnson 1.020 (1.005-1.030) Urine Protein >=300 H (NEGATIVE) Urine Glucose (UA) 100 H (NEGATIVE) Urine Ketones Negative (NEGATIVE) Urine Occult Blood Negative (NEGATIVE) Urine Nitrite Negative (NEGATIVE) Urine Bilirubin Negative (NEGATIVE) Urine Urobilinogen 0.2 (0.2-1.0) mg/dL Ur Leukocyte Esterase Negative (NEGATIVE) Urine RBC 0-5 /HPF Urine WBC 0-5 (0-5/HPF) /HPF Ur Epithelial Cells Occasional /HPF Amorphous Sediment Few (0/HPF) /HPF Urine Bacteria Few (0-FEW/HPF) /HPF Urine Mucus Few H /LPF Salicylates Urine Opiates Screen Positive H (NEGATIVE) Ur Oxycodone Screen Negative (NEGATIVE) Urine Methadone Screen Negative (NEGATIVE) Acetaminophen Ur Barbiturates Screen Negative (NEGATIVE) U Tricyclic Antidepress Negative (NEGATIVE) Ur Phencyclidine Scrn Negative (NEGATIVE) Ur Amphetamine Screen Negative (NEGATIVE) U Methamphetamines Scrn Negative (NEGATIVE) Urine MDMA Screen Negative (NEGATIVE) U Benzodiazepines Scrn Positive H (NEGATIVE) Urine Cocaine Screen Negative (NEGATIVE) U Marijuana (THC) Screen Negative (NEGATIVE) Ethyl Alcohol mg/dL Meds: Medications Generic Name Dose Route Start Last Admin Trade Name Freq PRN Reason Stop Dose Admin Sodium Chloride 1,000 mls @ 999 mls/hr 05/27/17 12:00 05/27/17 12:02 Normal Saline IV 999 mls/hr ASDIRECTED ELVI Administration Piperacillin Sod/Tazobactam 100 mls @ 200 mls/hr 05/27/17 13:40 Sod 3.375 gm/ Sodium Chloride IV 05/27/17 14:09 ONETIME ONE Discontinued Medications Generic Name Dose Route Start Last Admin Trade Name Freq PRN Reason Stop Dose Admin Morphine Sulfate 2 mg 05/27/17 11:53 05/27/17 12:05 Morphine IVPUSH 05/27/17 11:54 2 mg ONETIME ONE Administration Morphine Sulfate 2 mg 05/27/17 13:43 Morphine IVPUSH 05/27/17 13:44 ONETIME ONE Departure - Departure Time of Disposition: 13:40 Disposition: DC/Tfer to [facility] 02 Condition: Serious Clinical Impression: Acute cholecystitis Right lower lobe pneumonia Qualifiers: Pneumonia type: due to unspecified organism Qualified Code(s): J18.1 - Lobar pneumonia, unspecified organism Chronic kidney disease Qualifiers: Chronic kidney disease stage: unspecified stage Qualified Code(s): N18.9 - Chronic kidney disease, unspecified - Discharge Information Forms: Interfacility Transfer [facility] Care Plan Goals: Discussed the patient's history, symptoms, examination, lab and CT results with Dr. García (Hospitalist with [facility] in [place]). Dr. García accepted the patient for continued evaluation and management. The patient will be transported by [facility]. - My Orders Last 24 Hours: My Active Orders 05/27/17 12:00 Sodium Chloride 0.9% [Normal Saline] 1,000 ml IV ASDIRECTED 05/27/17 13:40 Piperacillin/Tazobactam [Zosyn] 3.375 gm Sodium Chloride 0.9% [Normal Saline] 100 ml IV ONETIME - Assessment/Plan Last 24 Hours: My Active Orders 05/27/17 12:00 Sodium Chloride 0.9% [Normal Saline] 1,000 ml IV ASDIRECTED 05/27/17 13:40 Piperacillin/Tazobactam [Zosyn] 3.375 gm Sodium Chloride 0.9% [Normal Saline] 100 ml IV ONETIME
[2017-05-27] MEDS ORDERED: Morphine 2 MG/ML Syringe IVPUSH ONE ×2 (11:53→13:43)
[2017-05-27 11:54] VITALS: BP 111/40
[2017-05-27] MEDS ORDERED: Sodium Chloride 0.9% 1,000 ML IV SCH (12:00)
[2017-05-27 12:15] LABS: ACETAMINOPHEN < 10
--- NOTE | 2017-05-27 13:29 | CR ---
Clinical history: 62-year-old hypertensive diabetic with male right upper quadrant pain, history "cho lelithiasis", increased shortness of breath and elevated WBC (14,300). Scan technique: Volume acquisition of data unenhanced CT scan abdomen and pelvis (kidneys/ureters/ashwin dder) obtained with the patient was lying supine on the Siemens multi slice scanner [place], [place]. All data archived in the PACS system for storage, reformatting and st udy. Interpretation: 1. *Asymmetric dense new right lower lobe pneumonic like consolidation since recent a May 2017 ex am. 2. Chronic cardiomegaly and generalized mild pulmonary venous congestion but no dependent new pleural fluid accumulation, lung mass or other focal lobar consolidation. 3. Gallstones impacted neck of the distended gallbladder with thickened wall and pericystic fluid i.e . acute cholecystitis. 4. Unenhanced liver, stomach, spleen, pancreas and right adrenal gland unremarkable (small cyst or ad enoma left adrenal gland). 5. No sign of renal cortical mass lesion, nephrolithiasis or obstructive uropathy. Abnormal inhomogen eously dense prostate gland with calcifications. Urinary bladder unremarkable. Pancolonic diverticulo sis. 6. Calcification outlining course of normal caliber abdominal aorta. Chronic L4-5 disc disease and ar thritis of the spine. 7. Some retroperitoneal periaortic lymphadenopathy but no pelvic or abdominal mass lesion. No inflamm atory "dirty" peritoneal fat, sign of mechanical bowel obstruction, ascites or free intraperitoneal a ir. Cardiomegaly. RLL infiltrate and/or atelectasis. CONCLUSION: Diseased gallbladder and right lower lobe pneumonia. Diverticulosis transverse colon.
[2017-05-27] MEDS ORDERED: Piperacillin/Tazobactam 3.375 GM in Sodium Chloride 0.9% 100 ML IV ONE (13:40)
--- NOTE | 2017-05-27 13:43 | CT ---
CLINICAL HISTORY: 62-year-old male with elevated white blood cell count, shortness of breath and righ t upper quadrant pain (CT evidence disease gallbladder and dense pneumonic consolidation right lower lobe) INTERPRETATION: Abnormal. PA lateral chest films confirm asymmetric right lower lobe pneumonic like consolidation. Cardiomegaly and generalized venous congestion with slight cephalization but no alveolar edema or dep endent effusions. No lung mass or hilar lymphadenopathy. No free subdiaphragmatic air. CONCLUSION: Right lower lobe pneumonia.
== END 2017-05-27 14:23 ==
LOC: DL.ED 11:39
DX: K81.0 Acute cholecystitis (principal); J18.9 Pneumonia, unspecified organism; I13.0 Hypertensive heart and chronic kidney disease with heart failure and stage 1 through stage 4 chronic kidney disease, or unspecified chronic kidney disease; E11.22 Type 2 diabetes mellitus with diabetic chronic kidney disease; I50.9 Heart failure, unspecified; N18.9 Chronic kidney disease, unspecified; E78.00 Pure hypercholesterolemia, unspecified; Z79.899 Other long term (current) drug therapy; Z79.4 Long term (current) use of insulin; Z79.82 Long term (current) use of aspirin
CPT/HCPCS: 36415; 71046; 74176; 80053; 80305; 81001; 82140; 82150; 83690; 83735; 85025; 87040; 87804; 96361; 96374; 96375; 96376; 99285; G0480; J2270; J2543; J7030; J7050

== ENCOUNTER 2017-06-02 14:37 | Emergency (ER) | payer OTHER, BC ==
[2017-06-02 14:47] VITALS: BP 180/80
[2017-06-02 15:16] LABS: ANION GAP 13.7
[2017-06-02] MEDS ORDERED: Acetaminophen/HYDROcodone 325-10 MG Tab PO ONE (15:53)
--- NOTE | 2017-06-02 16:03 | EDM.PDOC ---
Scribed by Rivka Johansen 06/02/17 [id number] for Yariel Wing PA ED HPI GENERAL MEDICAL PROBLEM - General Chief Complaint: General Stated Complaint: IN BY AMBULANCE Time Seen by Provider: 06/02/17 15:40 Source of Information: Reports: Patient, RN, RN Notes Reviewed History Limitations: Reports: No Limitations - History of Present Illness INITIAL COMMENTS - FREE TEXT/NARRATIVE: Patient presents with small amount of abdominal pain. He has not taken his hydrocodone tid. He has increased weakness and tiredness since injury. 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) - Related Data Allergies Allergy/AdvReac Type Severity Reaction Status Date / Time No Known Allergies Allergy Verified 05/19/17 18:57 Home Meds: Home Meds Hydrocodone/Acetaminophen [Hydrocodone-Acetaminophen 5-325] 1 tab PO TID PRN 03/25 [History] Insulin Detemir [Levemir Flexpen] 26 unit SQ BID 01/19/14 [History] Aspirin [Children's Aspirin] 81 mg PO DAILY 05/15/16 [History] Clopidogrel Bisulfate [Plavix] 75 mg PO DAILY 05/15/16 [History] Ezetimibe [Zetia] 10 mg PO DAILY 05/15/16 [History] Gabapentin [Neurontin] 300 mg PO BEDTIME 05/15/16 [History] Hydrochlorothiazide 25 mg PO DAILY 05/15/16 [History] LORazepam 0.5 - 1 mg PO QID PRN 05/15/16 [History] Loratadine 10 mg PO DAILY 05/15/16 [History] Metoprolol Succinate [Toprol XL] 150 mg PO BID 05/15/16 [History] Nitroglycerin [Nitrostat] 0.4 mg SL Q5M PRN 05/15/16 [History] Terazosin HCl [Terazosin] 5 mg PO DAILY 05/15/16 [History] Docusate Sodium 100 mg PO BID PRN #60 capsule 12/29/16 [Rx] hydrALAZINE [Apresoline] 150 mg PO Q12H #90 tablet 12/29/16 [Rx] Furosemide 60 mg PO DAILY #90 tbs 04/05/17 [Rx] Acetaminophen [Tylenol] 650 mg PO Q4H PRN tablet 05/21/17 [Rx] Insulin Aspart [NovoLOG] See Protocol SUBCUT TIDAC 05/21/17 [History] Isosorbide Mononitrate [Imdur] 120 mg PO BID 05/27/17 [History] Past Medical History HEENT History: Reports: Impaired Vision Other HEENT History: WEARS CORRECTIVE LENSES; UPPER AND LOWER DENTURE PLATE Cardiovascular History: Reports: CAD, Heart Failure, High Cholesterol, Hypertension, Stents Respiratory History: Reports: Other (See Below) Other Respiratory History: recent bronchitis Gastrointestinal History: Reports: Chronic Constipation, Colon Polyp, Gastritis , GERD Other Gastrointestinal History: gall stones Genitourinary History: Reports: BPH, Chronic Renal Insuffiency Musculoskeletal History: Reports: Fracture Other Musculoskeletal History: missing tip of pinkie on left hand Neurological History: Reports: Headaches, Chronic Psychiatric History: Reports: Anxiety Endocrine/Metabolic History: Reports: Diabetes, Type II Hematologic History: Reports: None Immunologic History: Reports: None Oncologic (Cancer) History: Reports: None Dermatologic History: Reports: None - Infectious Disease History Infectious Disease History: Reports: Measles - Past Surgical History Head Surgeries/Procedures: Reports: None Cardiovascular Surgical History: Reports: None, Coronary Artery Stent Respiratory Surgical History: Reports: None GI Surgical History: Reports: Cholecystectomy Male Surgical History: Reports: None Musculoskeletal Surgical History: Reports: None Other Musculoskeletal Surgeries/Procedures:: LEFT ANKLE SURGERY Oncologic Surgical History: Reports: None Dermatological Surgical History: Reports: None Social & Family History - Family History Family Medical History: Noncontributory : Reports: Renal Disease/Insufficiency Neurological: Reports: TIA Endocrine/Metabolic: Reports: Diabetes, type II - Tobacco Use Smoking Status *Q: Never Smoker Years of Tobacco use: 30 Packs/Tins Daily: 1 Used Tobacco, but Quit: Yes Month Tobacco Last Used: unknown Second Hand Smoke Exposure: No - Caffeine Use Caffeine Use: Reports: Coffee Caffeine Use Comment: decaf coffee - Alcohol Use Days Per Week of Alcohol Use: 1 Number of Drinks Per Day: 5 Total Drinks Per Week: 5 - Recreational Drug Use Recreational Drug Use: No Drug Use in Last 12 Months: No - Living Situation & Occupation Living situation: Reports: with Family, Occupation: Employed ED ROS GENERAL - Review of Systems Review Of Systems: ROS reveals no pertinent complaints other than HPI. ED EXAM, GENERAL - Physical Exam Exam: See Below Exam Limited By: No Limitations General Appearance: Alert, WD/WN, No Apparent Distress Eye Exam: Bilateral Eye: Normal Inspection Ears: Normal External Exam, Normal Canal, Hearing Grossly Normal, Normal TMs Nose: Normal Inspection, Normal Mucosa, No Blood Throat/Mouth: Normal Inspection, Normal Lips, Normal Teeth, Normal Gums, Normal Oropharynx, Normal Voice, No Airway Compromise Head: Atraumatic, Normocephalic Neck: Normal Inspection, Supple, Non-Tender, Full Range of Motion Respiratory/Chest: No Respiratory Distress, Lungs Clear, Normal Breath Sounds, No Accessory Muscle Use, Chest Non-Tender Cardiovascular: Normal Peripheral Pulses, Regular Rate, Rhythm, No Edema, No Gallop, No JVD, No Murmur, No Rub GI/Abdominal: Other (Diffuse abdominal pain. Surgical wounds healing well. No erythema. No drainage. ) (Male) Exam: Deferred Rectal (Males) Exam: Deferred Back Exam: Normal Inspection, Full Range of Motion, NT Extremities: Normal Inspection, Normal Range of Motion, Non-Tender, Normal Capillary Refill, No Pedal Edema Neurological: Alert, Oriented, CN II-XII Intact, Normal Cognition, Normal Gait, Normal Reflexes, No Motor/Sensory Deficits Psychiatric: Normal Affect, Normal Mood Skin Exam: Warm, Dry, Intact, Normal Color, No Rash Lymphatic: No Adenopathy Course - Vital Signs Last Recorded V/S: Last Vital Signs Temp 37.2 C 06/02/17 14:04 Pulse 62 06/02/17 14:04 Resp 22 H 06/02/17 14:04 BP 180/80 H 06/02/17 14:04 Pulse Ox 100 06/02/17 14:04 - Orders/Labs/Meds Orders: Active Orders 24 hr Category Date Time Status CBC WITH AUTO DIFF [HEME] Urgent Lab 06/02/17 14:36 Results CULTURE BLOOD [BC] Stat Lab 06/02/17 14:36 Received CULTURE BLOOD [BC] Stat Lab 06/02/17 14:42 Received MANUAL DIFFERENTIAL QA/NC [HEME] Urgent Lab 06/02/17 14:36 Results Blood Culture x2 Reflex Set [OM.PC] Stat Oth 06/02/17 14:11 Ordered Labs: Laboratory Tests 06/02/17 06/02/17 06/02/17 Range/Units 14:36 14:36 14:36 WBC 11.3 H (5.0-10.0) 10^3/uL RBC 4.07 L (4.6-6.2) 10^6/uL Hgb 10.5 L D (14.0-18.0) g/dL Hct 32.4 L (40.0-54.0) % MCV 79.6 L (80-100) fL MCH 25.8 L (27.0-34.0) pg MCHC 32.4 L (33.0-35.0) g/dL Plt Count 201 (150-450) 10^3/uL Neut % (Auto) 81.2 H (42.2-75.2) % Lymph % (Auto) 12.9 L (20.5-50.1) % [place] % (Auto) 3.5 (2-8) % Eos % (Auto) 2.0 (1.0-3.0) % Baso % (Auto) 0.4 (0.0-1.0) % Add Manual Diff Yes Sodium 138 (135-145) mmol/L Potassium 3.7 (3.6-5.0) mmol/L Chloride 109 (101-111) mmol/L Carbon Dioxide 19.0 L (21.0-31.0) mmol/L Anion Gap 13.7 BUN 46 H (7-18) mg/dL Creatinine 2.9 H D (0.6-1.3) mg/dL Est Cr Clr Drug Dosing 28.13 mL/min Estimated GFR (MDRD) 22 BUN/Creatinine Ratio 15.86 Glucose 125 H (74-105) mg/dL Lactic Acid 0.8 (0.5-2.2) mmol/L Calcium 8.6 (8.4-10.2) mg/dl Total Bilirubin 0.9 (0.2-1.0) mg/dL AST 22 (10-42) IU/L ALT 25 (10-60) IU/L Alkaline Phosphatase 112 (42-121) IU/L Total Protein 6.5 L (6.7-8.2) g/dl Albumin 3.1 L (3.2-5.5) g/dl Globulin 3.4 Albumin/Globulin Ratio 0.91 Meds: Medications Discontinued Medications Generic Name Dose Route Start Last Admin Trade Name Ellen PRN Reason Stop Dose Admin Hydrocodone Bitart/Acetaminophen 1 tab 06/02/17 15:53 [place] 325-10 Mg PO 06/02/17 15:54 ONETIME ONE - Re-Assessments/Exams Free Text/Narrative Re-Assessment/Exam: 06/02/17 15:58 Patient has not taken any pain medications since yesterday. Departure - Departure Time of Disposition: 15:59 Disposition: Home, Self-Care 01 Condition: Fair Clinical Impression: Generalized weakness - Discharge Information Forms: ED Department Discharge Care Plan Goals: The patient was advised of the examination and lab results during the visit. The patient was encouraged to continue to take his medications as prescribed. If the patient has any additional symptoms or concerns, the patient should follow-up with his primary care facility or return to the emergency department. - My Orders Last 24 Hours: My Active Orders 06/02/17 14:11 Blood Culture x2 Reflex Set [OM.PC] Stat 06/02/17 14:36 CBC WITH AUTO DIFF [HEME] Urgent CULTURE BLOOD [BC] Stat MANUAL DIFFERENTIAL QA/NC [HEME] Urgent 06/02/17 14:42 CULTURE BLOOD [BC] Stat - Assessment/Plan Last 24 Hours: My Active Orders 06/02/17 14:11 Blood Culture x2 Reflex Set [OM.PC] Stat 06/02/17 14:36 CBC WITH AUTO DIFF [HEME] Urgent CULTURE BLOOD [BC] Stat MANUAL DIFFERENTIAL QA/NC [HEME] Urgent 06/02/17 14:42 CULTURE BLOOD [BC] Stat I have read and agree with the documentation that has been completed regarding this visit. By signing this record, I attest that the documentation was completed in my physical presence and is an accurate record of the encounter.
== END 2017-06-02 16:29 | disposition home or self-care (01) ==
LOC: DL.ED 14:37 → EEVIPCON 14:37 → DL.ED 16:29
DX: R53.1 Weakness (principal); I13.0 Hypertensive heart and chronic kidney disease with heart failure and stage 1 through stage 4 chronic kidney disease, or unspecified chronic kidney disease; E11.22 Type 2 diabetes mellitus with diabetic chronic kidney disease; N18.9 Chronic kidney disease, unspecified; I50.9 Heart failure, unspecified; I25.10 Atherosclerotic heart disease of native coronary artery without angina pectoris; Z87.891 Personal history of nicotine dependence; Z95.5 Presence of coronary angioplasty implant and graft; Z79.4 Long term (current) use of insulin; Z79.82 Long term (current) use of aspirin; Z79.02 Long term (current) use of antithrombotics/antiplatelets; Z79.899 Other long term (current) drug therapy
CPT/HCPCS: 36415; 80053; 83605; 85025; 87040; 99284; A9270

== ENCOUNTER 2017-06-12 19:03 | Inpatient (IN) | payer OTHER, BC ==
[2017-06-12 20:09] LABS: ANION GAP 13.3
[2017-06-12] MEDS ORDERED: Pantoprazole 40 MG Vial IVPUSH ONE (20:39)
[2017-06-12] MEDS ORDERED: Metoclopramide 10 MG/2 ML SDV IVPUSH ONE (20:39)
[2017-06-12] MEDS ORDERED: fentaNYL 100 MCG/2 ML SDV IVPUSH ONE (20:39)
[2017-06-12] MEDS ORDERED: Acetaminophen 650 MG Supp RECTAL STA (21:25)
[2017-06-12] MEDS ORDERED: Levofloxacin/Dextrose 5%-Water 500 MG in Premix Bag 1 BAG IV ONE (22:50)
--- NOTE | 2017-06-12 22:58 | EDM.PDOC ---
ED HPI GENERAL MEDICAL PROBLEM - General Chief Complaint: Respiratory Problem Stated Complaint: CAME BY AMBULANCE, GENERAL Time Seen by Provider: 06/12/17 20:10 Source of Information: Reports: Patient History Limitations: Reports: No Limitations - History of Present Illness INITIAL COMMENTS - FREE TEXT/NARRATIVE: c/o nausea , vomiting and fever today. Recently discharged from [facility] for pneumonia. Weak since discharge. Upper Abdominal Pain Score (Numeric/FACES): 3 Mid-Sternal Chest Pain Score (Numeric/FACES): 3 Headache Pain Score (Numeric/FACES): 0 - Related Data Allergies Allergy/AdvReac Type Severity Reaction Status Date / Time No Known Allergies Allergy Verified 06/12/17 23:50 Home Meds: Home Meds Hydrocodone/Acetaminophen [Hydrocodone-Acetaminophen 5-325] 1 tab PO TID PRN 03/25 [History] Insulin Detemir [Levemir Flexpen] 30 unit SQ BID 01/19/14 [History] Aspirin [Children's Aspirin] 81 mg PO DAILY 05/15/16 [History] Ezetimibe [Zetia] 10 mg PO DAILY 05/15/16 [History] Gabapentin [Neurontin] 300 mg PO BEDTIME 05/15/16 [History] LORazepam 1 mg PO QID PRN 05/15/16 [History] Loratadine 10 mg PO DAILY 05/15/16 [History] Terazosin HCl [Terazosin] 5 mg PO BEDTIME 05/15/16 [History] Docusate Sodium 100 mg PO BID PRN #60 capsule 12/29/16 [Rx] Isosorbide Mononitrate [Imdur] 120 mg PO BID 05/27/17 [History] Calcitriol [Rocaltrol] 0.25 mcg PO DAILY 06/12/17 [History] Calcium Citrate/Vitamin D3 [Calcium Citrate + D] 2 each PO BID 06/12/17 [History ] Carvedilol 50 mg PO BID 06/12/17 [History] Cyanocobalamin (Vitamin B-12) [Vitamin B-12] 100 mcg PO DAILY 06/12/17 [History] Furosemide 60 mg PO DAILY 06/12/17 [History] Metolazone [Zaroxolyn] 2.5 mg PO .48H 06/12/17 [History] atorvaSTATin [Lipitor] 20 mg PO BEDTIME 06/12/17 [History] hydrALAZINE [Apresoline] 150 mg PO Q8H 06/12/17 [History] Omeprazole 20 mg PO DAILY 06/13/17 [History] Oseltamivir [Tamiflu] 30 mg PO BID #8 cap 06/15/17 [Rx] Past Medical History HEENT History: Reports: Impaired Vision Other HEENT History: WEARS CORRECTIVE LENSES; UPPER AND LOWER DENTURE PLATE Cardiovascular History: Reports: CAD, Heart Failure, High Cholesterol, Hypertension, Stents Respiratory History: Reports: Pneumonia, Recurrent, SOB, Other (See Below) Other Respiratory History: recent bronchitis Gastrointestinal History: Reports: Chronic Constipation, Colon Polyp, Gastritis , GERD Other Gastrointestinal History: gall stones Genitourinary History: Reports: BPH, Chronic Renal Insuffiency Musculoskeletal History: Reports: Fracture Other Musculoskeletal History: missing tip of pinkie on left hand Neurological History: Reports: Headaches, Chronic, Neuropathy, Diabetic Psychiatric History: Reports: Anxiety Endocrine/Metabolic History: Reports: Diabetes, Type II Hematologic History: Reports: None Immunologic History: Reports: None Oncologic (Cancer) History: Reports: None Dermatologic History: Reports: None - Infectious Disease History Infectious Disease History: Reports: Measles - Past Surgical History Head Surgeries/Procedures: Reports: None Cardiovascular Surgical History: Reports: None, Coronary Artery Stent Respiratory Surgical History: Reports: None GI Surgical History: Reports: Cholecystectomy Male Surgical History: Reports: None Musculoskeletal Surgical History: Reports: None Other Musculoskeletal Surgeries/Procedures:: LEFT ANKLE SURGERY Oncologic Surgical History: Reports: None Dermatological Surgical History: Reports: None Social & Family History - Family History Family Medical History: Noncontributory : Reports: Renal Disease/Insufficiency Neurological: Reports: TIA Endocrine/Metabolic: Reports: Diabetes, type II - Tobacco Use Smoking Status *Q: Former Smoker Years of Tobacco use: 30 Packs/Tins Daily: 1 Used Tobacco, but Quit: Yes Month Tobacco Last Used: 2 yeas ago Second Hand Smoke Exposure: No - Caffeine Use Caffeine Use: Reports: None Caffeine Use Comment: decaf coffee - Alcohol Use Days Per Week of Alcohol Use: 1 Number of Drinks Per Day: 5 Total Drinks Per Week: 5 - Recreational Drug Use Recreational Drug Use: No Drug Use in Last 12 Months: No - Living Situation & Occupation Living situation: Reports: with Family, Occupation: Employed ED ROS GENERAL - Review of Systems Review Of Systems: See Below Constitutional: Reports: Fever, Chills, Malaise HEENT: Reports: No Symptoms Respiratory: Reports: Shortness of Breath, Cough Cardiovascular: Reports: No Symptoms Endocrine: Reports: No Symptoms GI/Abdominal: Reports: Diarrhea, Vomiting. Denies: Abdominal Pain Musculoskeletal: Reports: No Symptoms Skin: Reports: No Symptoms Neurological: Reports: No Symptoms ED EXAM, GENERAL - Physical Exam Exam: See Below Exam Limited By: No Limitations General Appearance: Alert, Moderate Distress Eye Exam: Bilateral Eye: EOMI Ears: Normal External Exam, Normal TMs Nose: Normal Inspection Throat/Mouth: Other (membranes dry) Head: Atraumatic, Normocephalic Neck: Normal Inspection. No: Lymphadenopathy (L), Lymphadenopathy (R) Respiratory/Chest: No Respiratory Distress, Decreased Breath Sounds Cardiovascular: Normal Peripheral Pulses, Regular Rate, Rhythm GI/Abdominal: Normal Bowel Sounds, Soft, Tender (epigastric) Back Exam: Normal Inspection, Full Range of Motion Extremities: Normal Inspection, Normal Range of Motion Neurological: Alert, Oriented, Normal Cognition Psychiatric: Flat Affect Skin Exam: Warm, Dry, Intact Course - Vital Signs Last Recorded V/S: Last Vital Signs Temp 98.8 F 06/15/17 11:52 Pulse 58 L 06/15/17 11:52 Resp 20 06/15/17 11:52 BP 132/54 L 06/15/17 11:52 Pulse Ox 97 06/15/17 11:52 - Orders/Labs/Meds Labs: Laboratory Tests 06/12/17 06/12/17 06/12/17 Range/Units 19:20 19:20 19:20 WBC 7.0 (5.0-10.0) 10^3/uL RBC 4.25 L (4.6-6.2) 10^6/uL Hgb 10.8 L (14.0-18.0) g/dL Hct 34.3 L (40.0-54.0) % MCV 80.7 (80-100) fL MCH 25.4 L (27.0-34.0) pg MCHC 31.5 L (33.0-35.0) g/dL Plt Count 178 (150-450) 10^3/uL Neut % (Auto) 80.8 H (42.2-75.2) % Lymph % (Auto) 9.0 L (20.5-50.1) % [place] % (Auto) 9.5 H (2-8) % Eos % (Auto) 0.4 L (1.0-3.0) % Baso % (Auto) 0.3 (0.0-1.0) % Sodium 136 (135-145) mmol/L Potassium 4.3 (3.6-5.0) mmol/L Chloride 107 (101-111) mmol/L Carbon Dioxide 20.0 L (21.0-31.0) mmol/L Anion Gap 13.3 BUN 48 H (7-18) mg/dL Creatinine 3.6 H (0.6-1.3) mg/dL Est Cr Clr Drug Dosing 22.66 mL/min Estimated GFR (MDRD) 17 BUN/Creatinine Ratio 13.33 Glucose 139 H (74-105) mg/dL Lactic Acid 0.8 (0.5-2.2) mmol/L Calcium 8.6 (8.4-10.2) mg/dl Total Bilirubin 0.8 (0.2-1.0) mg/dL AST 22 (10-42) IU/L ALT 15 (10-60) IU/L Alkaline Phosphatase 99 (42-121) IU/L Total Protein 7.0 (6.7-8.2) g/dl Albumin 3.2 (3.2-5.5) g/dl Globulin 3.8 Albumin/Globulin Ratio 0.84 Urine Color (YELLOW) Urine Appearance (CLEAR) Urine pH (5.0-9.0) Ur Specific [place] (1.005-1.030) Urine Protein (NEGATIVE) Urine Glucose (UA) (NEGATIVE) Urine Ketones (NEGATIVE) Urine Occult Blood (NEGATIVE) Urine Nitrite (NEGATIVE) Urine Bilirubin (NEGATIVE) Urine Urobilinogen (0.2-1.0) mg/dL Ur Leukocyte Esterase (NEGATIVE) Urine RBC /HPF Urine WBC (0-5/HPF) /HPF Ur Epithelial Cells /HPF Urine Bacteria (0-FEW/HPF) /HPF 06/12/17 Range/Units 20:18 WBC (5.0-10.0) 10^3/uL RBC (4.6-6.2) 10^6/uL Hgb (14.0-18.0) g/dL Hct (40.0-54.0) % MCV (80-100) fL MCH (27.0-34.0) pg MCHC (33.0-35.0) g/dL Plt Count (150-450) 10^3/uL Neut % (Auto) (42.2-75.2) % Lymph % (Auto) (20.5-50.1) % [place] % (Auto) (2-8) % Eos % (Auto) (1.0-3.0) % Baso % (Auto) (0.0-1.0) % Sodium (135-145) mmol/L Potassium (3.6-5.0) mmol/L Chloride (101-111) mmol/L Carbon Dioxide (21.0-31.0) mmol/L Anion Gap BUN (7-18) mg/dL Creatinine (0.6-1.3) mg/dL Est Cr Clr Drug Dosing mL/min Estimated GFR (MDRD) BUN/Creatinine Ratio Glucose (74-105) mg/dL Lactic Acid (0.5-2.2) mmol/L Calcium (8.4-10.2) mg/dl Total Bilirubin (0.2-1.0) mg/dL AST (10-42) IU/L ALT (10-60) IU/L Alkaline Phosphatase (42-121) IU/L Total Protein (6.7-8.2) g/dl Albumin (3.2-5.5) g/dl Globulin Albumin/Globulin Ratio Urine Color Yellow (YELLOW) Urine Appearance Clear (CLEAR) Urine pH 6.0 (5.0-9.0) Ur Specific [place] 1.020 (1.005-1.030) Urine Protein >=300 H (NEGATIVE) Urine Glucose (UA) 100 H (NEGATIVE) Urine Ketones Negative (NEGATIVE) Urine Occult Blood Small H (NEGATIVE) Urine Nitrite Negative (NEGATIVE) Urine Bilirubin Negative (NEGATIVE) Urine Urobilinogen 0.2 (0.2-1.0) mg/dL Ur Leukocyte Esterase Negative (NEGATIVE) Urine RBC 20-30 H /HPF Urine WBC 0-5 (0-5/HPF) /HPF Ur Epithelial Cells Occasional /HPF Urine Bacteria Moderate H (0-FEW/HPF) /HPF Meds: Medications Discontinued Medications Generic Name Dose Route Start Last Admin Trade Name Freq PRN Reason Stop Dose Admin Acetaminophen 650 mg 06/12/17 21:25 06/12/17 21:31 Tylenol RECTAL 06/12/17 21:26 650 mg NOW STA Administration Acetaminophen 650 mg 06/12/17 23:59 06/14/17 09:36 Tylenol PO 650 mg Q4H PRN Administration Pain (Mild 1-3)/fever Albuterol 2.5 mg 06/12/17 23:59 06/13/17 00:52 Proventil Neb Soln NEB 2.5 mg Q2H PRN Administration shortness of breath/wheezing Aspirin 81 mg 06/13/17 09:00 06/15/17 09:41 Aspirin PO 81 mg DAILY ELVI Administration Atorvastatin Calcium 20 mg 06/13/17 21:00 06/14/17 20:43 Lipitor PO 20 mg BEDTIME LEVI Administration Calcitriol 0.25 mcg 06/13/17 09:00 06/15/17 09:42 Rocaltrol PO 0.25 mcg DAILY ELVI Administration Carvedilol 50 mg 06/13/17 09:00 06/15/17 09:43 Coreg PO 50 mg BID ELVI Administration Clopidogrel Bisulfate 75 mg 06/13/17 09:00 06/15/17 09:43 Plavix PO 75 mg DAILY ELVI Administration Cyanocobalamin 100 mcg 06/13/17 09:00 06/15/17 09:43 Vitamin B12 PO 100 mcg DAILY ELVI Administration Ezetimibe 10 mg 06/13/17 09:00 06/15/17 09:42 Zetia PO 10 mg DAILY ELVI Administration Fentanyl 25 mcg 06/12/17 20:39 06/12/17 21:04 Sublimaze IVPUSH 06/12/17 20:40 25 mcg ONETIME ONE Administration Furosemide 60 mg 06/13/17 09:00 06/15/17 09:42 Lasix PO 60 mg DAILY ELVI Administration Gabapentin 300 mg 06/13/17 21:00 06/14/17 20:42 Neurontin PO 300 mg BEDTIME ELVI Administration Guaifenesin/Phenylephrine HCl 10 ml 06/13/17 00:05 06/13/17 21:04 Robitussin Dm PO 10 ml Q6H PRN Administration Cough Heparin Sodium (Porcine) 5,000 units 06/13/17 06:00 06/15/17 05:54 Heparin Sodium SUBCUT 5,000 units Q8HR ELVI Administration Hydralazine HCl 150 mg 06/13/17 00:30 06/15/17 09:41 Apresoline PO 150 mg Q8H ELVI Administration Levofloxacin/Dextrose 500 mg/ 100 mls @ 100 mls/hr 06/12/17 22:50 06/12/17 23 :08 Premix IV 06/12/17 23:49 100 mls/hr ONETIME ONE Administration Levofloxacin/Dextrose 500 mg/ 100 mls @ 100 mls/hr 06/14/17 23:45 Premix IV Q48H ELVI Levofloxacin/Dextrose 100 mls @ 100 mls/hr 06/13/17 00:30 06/13/17 00:33 Levaquin In D5w 500 Mg/100 Ml IV 06/13/17 01:29 Not Given ONETIME ONE Insulin Aspart 0 unit 06/13/17 17:00 06/15/17 09:02 Novolog SUBCUT Not Given TIDAC [facility] Protocol Insulin Detemir 25 unit 06/13/17 09:00 06/15/17 09:44 Levemir SUBCUT 15 units BID [facility] Administration Isosorbide Mononitrate 120 mg 06/13/17 09:00 06/15/17 09:42 Imdur PO 120 mg BID [facility] Administration Loratadine 10 mg 06/13/17 09:00 06/15/17 09:42 Claritin PO 10 mg DAILY [facility] Administration Lorazepam 1 mg 06/13/17 00:17 Ativan PO QID PRN Anxiety Metoclopramide HCl 10 mg 06/12/17 20:39 06/12/17 21:02 Reglan IVPUSH 06/12/17 20:40 10 mg ONETIME ONE Administration Metolazone 2.5 mg 06/14/17 21:00 06/14/17 20:57 Zaroxolyn PO 2.5 mg Q48H ELVI Administration Morphine Sulfate 1 mg 06/12/17 23:59 06/13/17 00:49 Morphine IVPUSH 1 mg Q2H PRN Administration Pain (severe 7-10) Ondansetron HCl 4 mg 06/12/17 23:59 Zofran Odt PO Q6H PRN nausea, able to take PO Ondansetron HCl 4 mg 06/12/17 23:59 Zofran IVPUSH Q6H PRN Nausea/Vomiting Oseltamivir Phosphate 30 mg 06/13/17 12:45 06/15/17 09:42 Tamiflu PO 30 mg BID ELVI Administration Oxycodone HCl 5 mg 06/12/17 23:59 06/13/17 10:32 Oxycodone PO 5 mg Q4H PRN Administration Pain (moderate 4-6) Pantoprazole Sodium 40 mg 06/12/17 20:39 06/12/17 21:03 Protonix Iv IVPUSH 06/12/17 20:40 40 mg ONETIME ONE Administration Pantoprazole Sodium 40 mg 06/13/17 06:00 06/15/17 05:54 Protonix PO 40 mg ACBREAKFAST ELVI Administration Sodium Chloride 10 ml 06/12/17 23:59 06/13/17 21:11 Saline Flush FLUSH 10 ml ASDIRECTED PRN Administration Keep Vein Open Terazosin HCl 5 mg 06/13/17 21:00 06/14/17 20:41 Hytrin PO 5 mg BEDTIME ELVI Administration Zolpidem Tartrate 5 mg 06/12/17 23:59 Ambien PO BEDTIME PRN Sleep - Re-Assessments/Exams Free Text/Narrative Re-Assessment/Exam: Admit nursing floor per Dr. Flores Departure - Departure Time of Disposition: 23:40 Disposition: Admitted As Inpatient 66 Condition: Fair Clinical Impression: Fever Nausea & vomiting Qualifiers: Vomiting type: unspecified Vomiting Intractability: non-intractable Qualified Code(s): R11.2 - Nausea with vomiting, unspecified - Discharge Information
[2017-06-12] MEDS ORDERED: Sodium Chloride 0.9% 10 ML Syringe FLUSH PRN (23:59)
[2017-06-12] MEDS ORDERED: Zolpidem 5 MG Tab PO PRN (23:59)
[2017-06-12] MEDS ORDERED: Ondansetron 4 MG Tab.DIS PO PRN (23:59)
[2017-06-12] MEDS ORDERED: Ondansetron 4 MG/2 ML SDV IVPUSH PRN (23:59)
[2017-06-12] MEDS ORDERED: Albuterol 0.083% 2.5 MG/3 ML Neb Soln NEB PRN (23:59)
[2017-06-12] MEDS ORDERED: Morphine 2 MG/ML Syringe IVPUSH PRN (23:59)
[2017-06-13] MEDS ORDERED: LORazepam 1 MG Tab PO PRN (00:17)
--- NOTE | 2017-06-13 00:17 | PCM.HP ---
H&P History of Present Illness - General Date of Service: 06/13/17 Admit Problem/Dx: Admission Diagnosis/Problem Admission Diagnosis/Problem Acute bronchitis - History of Present Illness Initial Comments - Free Text/Narative: The patient is a 62-year-old gentleman with a history of coronary artery disease , diabetes, chronic kidney disease stage IV. The patient was recently hospitalized and underwent cholecystectomy and treatment for pneumonia. He was discharged on 30 May from [facility]. The patient developed cough, fever, shortness of breath. Symptoms started a few days prior to this admission. Had similar symptoms in the family. The day prior to admission the patient developed nausea, vomiting. Describes mild diffuse abdominal pain associated with nausea. Fever noted in the emergency room. Upper Abdominal Pain Score (Numeric/FACES): 3 - Related Data Allergies/Adverse Reactions: Allergies Allergy/AdvReac Type Severity Reaction Status Date / Time No Known Allergies Allergy Verified 06/12/17 23:50 Home Medications: Home Meds Hydrocodone/Acetaminophen [Hydrocodone-Acetaminophen 5-325] 1 tab PO TID PRN 03/25 [History] Insulin Detemir [Levemir Flexpen] 30 unit SQ BID 01/19/14 [History] Aspirin [Children's Aspirin] 81 mg PO DAILY 05/15/16 [History] Clopidogrel Bisulfate [Plavix] 75 mg PO DAILY 05/15/16 [History] Ezetimibe [Zetia] 10 mg PO DAILY 05/15/16 [History] Gabapentin [Neurontin] 300 mg PO BEDTIME 05/15/16 [History] Hydrochlorothiazide 25 mg PO DAILY 05/15/16 [History] LORazepam 0.5 - 1 mg PO QID PRN 05/15/16 [History] Loratadine 10 mg PO DAILY 05/15/16 [History] Metoprolol Succinate [Toprol XL] 150 mg PO BID 05/15/16 [History] Nitroglycerin [Nitrostat] 0.4 mg SL Q5M PRN 05/15/16 [History] Terazosin HCl [Terazosin] 5 mg PO DAILY 05/15/16 [History] Docusate Sodium 100 mg PO BID PRN #60 capsule 12/29/16 [Rx] Furosemide 60 mg PO DAILY #90 tbs 04/05/17 [Rx] Acetaminophen [Tylenol] 650 mg PO Q4H PRN tablet 05/21/17 [Rx] Insulin Aspart [NovoLOG] See Protocol SUBCUT TIDAC 05/21/17 [History] Isosorbide Mononitrate [Imdur] 120 mg PO BID 05/27/17 [History] Calcitriol [Rocaltrol] 0.25 mcg PO DAILY 06/12/17 [History] Calcium Citrate/Vitamin D3 [Calcium Citrate + D] 2 each PO BID 06/12/17 [History ] Carvedilol 50 mg PO BID 06/12/17 [History] Cyanocobalamin (Vitamin B-12) [Vitamin B-12] 100 mcg PO DAILY 06/12/17 [History] Furosemide 60 mg PO DAILY 06/12/17 [History] Insulin Detemir [Levemir] 0 unit SQ BID 06/12/17 [History] Metolazone [Zaroxolyn] 2.5 mg PO .48H 06/12/17 [History] atorvaSTATin [Lipitor] 20 mg PO BEDTIME 06/12/17 [History] hydrALAZINE [Apresoline] 150 mg PO Q8H 06/12/17 [History] Past Medical History HEENT History: Reports: Impaired Vision Other HEENT History: WEARS CORRECTIVE LENSES; UPPER AND LOWER DENTURE PLATE Cardiovascular History: Reports: CAD, Heart Failure, High Cholesterol, Hypertension, Stents Respiratory History: Reports: Pneumonia, Recurrent, SOB, Other (See Below) Other Respiratory History: recent bronchitis Gastrointestinal History: Reports: Chronic Constipation, Colon Polyp, Gastritis , GERD Other Gastrointestinal History: gall stones Genitourinary History: Reports: BPH, Chronic Renal Insuffiency Musculoskeletal History: Reports: Fracture Other Musculoskeletal History: missing tip of pinkie on left hand Neurological History: Reports: Headaches, Chronic, Neuropathy, Diabetic Psychiatric History: Reports: Anxiety Endocrine/Metabolic History: Reports: Diabetes, Type II Hematologic History: Reports: None Immunologic History: Reports: None Oncologic (Cancer) History: Reports: None Dermatologic History: Reports: None - Infectious Disease History Infectious Disease History: Reports: Measles - Past Surgical History Head Surgeries/Procedures: Reports: None Cardiovascular Surgical History: Reports: None, Coronary Artery Stent Respiratory Surgical History: Reports: None GI Surgical History: Reports: Cholecystectomy Male Surgical History: Reports: None Musculoskeletal Surgical History: Reports: None Other Musculoskeletal Surgeries/Procedures:: LEFT ANKLE SURGERY Oncologic Surgical History: Reports: None Dermatological Surgical History: Reports: None Social & Family History - Family History Family Medical History: Noncontributory : Reports: Renal Disease/Insufficiency Neurological: Reports: TIA Endocrine/Metabolic: Reports: Diabetes, type II - Tobacco Use Smoking Status *Q: Former Smoker Years of Tobacco use: 30 Packs/Tins Daily: 1 Used Tobacco, but Quit: Yes Month Tobacco Last Used: 2 yeas ago Second Hand Smoke Exposure: No - Caffeine Use Caffeine Use: Reports: None Caffeine Use Comment: decaf coffee - Alcohol Use Days Per Week of Alcohol Use: 1 Number of Drinks Per Day: 5 Total Drinks Per Week: 5 - Recreational Drug Use Recreational Drug Use: No Drug Use in Last 12 Months: No - Living Situation & Occupation Living situation: Reports: with Family, Occupation: Employed H&P Review of Systems - Review of Systems: Review Of Systems: See Below General: Reports: Fever, Chills Pulmonary: Reports: Shortness of Breath. Denies: Wheezing Cardiovascular: Denies: Chest Pain Gastrointestinal: Reports: Abdominal Pain, Anorexia. Denies: Bloody Stool, Hematemesis Genitourinary: Denies: Dysuria Psychiatric: Denies: Confusion Exam - Exam Exam: See Below - Vital Signs Vital Signs: Last Vital Signs Temp 38.3 C H 06/12/17 22:28 Pulse 59 L 06/12/17 23:43 Resp 24 H 06/12/17 23:43 BP 161/69 H 06/12/17 22:28 Pulse Ox 100 06/12/17 23:43 Weight: 105.506 kg - Exam General: Alert, Oriented HEENT: Conjunctiva Clear, EOMI Neck: Supple Lungs: Normal Respiratory Effort, Decreased Breath Sounds Cardiovascular: Regular Rate, Regular Rhythm GI/Abdominal Exam: Normal Bowel Sounds, Soft, Non-Tender Extremities: No Pedal Edema - Patient Data Result Diagrams: 06/12/17 19:20 06/12/17 19:20 Imaging Impressions Last 24 hrs: Chest x-ray per my reading shows no infiltrate. CT of the abdomen showed no acute change. Enlarged but stable appendix noted *Q Meaningful Use (ADM) - VTE *Q VTE Criteria *Q: - Stroke *Q Stroke Criteria *Q: - AMI *Q AMI Criteria *Q: - Problem List (1) Bronchitis SNOMED Code(s): 16859527 ICD Code: J40 - BRONCHITIS, NOT SPECIFIED ACUTE OR CHRONIC Status: Acute Priority: Medium Current Visit: No (2) Diabetes mellitus SNOMED Code(s): 53353229 ICD Code: E11.9 - TYPE 2 DIABETES MELLITUS WITHOUT COMPLICATIONS Status: Acute Current Visit: No Qualifiers: Diabetes mellitus type: type 2 Diabetes mellitus complication status: with kidney complications Diabetes mellitus complication detail: with nephropathy Problem List Initiated/Reviewed/Updated: Yes Orders Last 24hrs: Active Orders 24 hr Category Date Time Status Patient Status [ADT] Routine ADT 06/13/17 00:00 Ordered Oxygen Therapy [RC] PRN Care 06/13/17 00:00 Ordered Peripheral IV Care [RC] . DIRECTED Care 06/13/17 00:01 Ordered RT Aerosol Therapy [RC] ASDIRECTED Care 06/13/17 00:03 Ordered Up With Assistance [RC] ASDIRECTED Care 06/12/17 23:59 Ordered VTE/DVT Education [RC] PER UNIT ROUTINE Care 06/13/17 00:00 Ordered Vital Signs [RC] Q4H Care 06/13/17 00:00 Ordered Consistent Carbohydrate Diet [DIET] Diet 06/13/17 Breakfast Ordered BASIC METABOLIC PANEL,BMP [CHEM] Routine Lab 06/12/17 23:59 Ordered CBC WITH AUTO DIFF [HEME] AM Lab 06/13/17 05:11 Ordered CULTURE SPUTUM + SMEAR [RM] Routine Lab 06/12/17 23:59 Uncollected INFLUENZA A+B AG SCREEN [RM] Urgent Lab 06/12/17 23:57 Uncollected Acetaminophen [Tylenol] Med 06/12/17 23:59 Ordered 650 mg PO Q4H PRN Albuterol [Proventil Neb Soln] Med 06/12/17 23:59 Ordered 2.5 mg NEB Q2H PRN Aspirin Med 06/13/17 09:00 Ordered 81 mg PO DAILY Clopidogrel [Plavix] Med 06/13/17 09:00 Ordered 75 mg PO DAILY Dextromethorphan/guaiFENesin [Robitussin DM] Med 06/13/17 00:05 Ordered 10 ml PO Q6H PRN Ezetimibe [Zetia] Med 06/13/17 09:00 Ordered 10 mg PO DAILY Furosemide [Lasix] Med 06/13/17 09:00 Ordered 60 mg PO DAILY Heparin Sodium Med 06/13/17 06:00 Ordered 5,000 units SUBCUT Q8HR Levofloxacin/Dextrose 5%-Water [Levaquin in D5W 500 MG/ Med 06/14/17 23:45 Ordered 100 ML] 500 mg Premix Bag 1 bag IV Q48H Morphine Med 06/12/17 23:59 Ordered 1 mg IVPUSH Q2H PRN Ondansetron [Zofran ODT] Med 06/12/17 23:59 Ordered 4 mg PO Q6H PRN Ondansetron [Zofran] Med 06/12/17 23:59 Ordered 4 mg IVPUSH Q6H PRN Pantoprazole [ProTONIX] Med 06/13/17 06:00 Ordered 40 mg PO ACBREAKFAST Sodium Chloride 0.9% [Saline Flush] Med 06/12/17 23:59 Ordered 10 ml FLUSH ASDIRECTED PRN Zolpidem [Ambien] Med 06/12/17 23:59 Ordered 5 mg PO BEDTIME PRN oxyCODONE Med 06/12/17 23:59 Ordered 5 mg PO Q4H PRN Peripheral IV Insertion Adult [OM.PC] Routine Oth 06/13/17 23:59 Ordered Saline Lock Insert [OM.PC] Routine Oth 06/13/17 23:59 Ordered Resuscitation Status Routine Resus Stat 06/12/17 23:59 Ordered Medication Orders Acetaminophen (Tylenol) 650 mg PO Q4H PRN PRN Reason: Pain (Mild 1-3)/fever Albuterol (Proventil Neb Soln) 2.5 mg NEB Q2H PRN PRN Reason: shortness of breath/wheezing Aspirin (Aspirin) 81 mg PO DAILY [facility] Clopidogrel Bisulfate (Plavix) 75 mg PO DAILY [facility] Ezetimibe (Zetia) 10 mg PO DAILY [facility] Furosemide (Lasix) 60 mg PO DAILY [facility] Guaifenesin/Phenylephrine HCl (Robitussin Dm) 10 ml PO Q6H PRN PRN Reason: Cough Heparin Sodium (Porcine) (Heparin Sodium) 5,000 units SUBCUT Q8HR [facility] Levofloxacin/Dextrose 500 mg/ (Premix) 100 mls @ 100 mls/hr IV Q48H [facility] Morphine Sulfate (Morphine) 1 mg IVPUSH Q2H PRN PRN Reason: Pain (severe 7-10) Ondansetron HCl (Zofran Odt) 4 mg PO Q6H PRN PRN Reason: nausea, able to take PO Ondansetron HCl (Zofran) 4 mg IVPUSH Q6H PRN PRN Reason: Nausea/Vomiting Oxycodone HCl (Oxycodone) 5 mg PO Q4H PRN PRN Reason: Pain (moderate 4-6) Pantoprazole Sodium (Protonix) 40 mg PO ACBREAKFAST [facility] Sodium Chloride (Saline Flush) 10 ml FLUSH ASDIRECTED PRN PRN Reason: Keep Vein Open Zolpidem Tartrate (Ambien) 5 mg PO BEDTIME PRN PRN Reason: Sleep Assessment/Plan Comment:: The patient is a 62-year-old gentleman with a history of chronic kidney disease stage IV, diabetes, dyslipidemia, hypertension. Presented with fever, cough. On chest x-ray there is no apparent pneumonia that the patient most likely has acute bronchitis. We will obtain influenza swab, sputum culture, blood culture Treat empirically with moxifloxacin Nausea, vomiting The patient has benign abdominal examination, no acute findings on CT abdomen. The treat symptomatically with antiemetics Chronic kidney disease stage IV Monitor electrolytes and renal function test Continue current dose of diuretics Hypertension Treat with Coreg, hydralazine, Imdur, metolazone, Lasix Diabetes Use Levemir and Humalog as needed DVT prophylaxis will be with subcutaneous heparin
[2017-06-13] MEDS ORDERED: Levofloxacin/Dextrose 5%-Water 100 ML IV ONE (00:30)
[2017-06-13] MEDS: hydrALAZINE 25 MG Tab PO SCH ×3 (00:44→18:22)
[2017-06-13] MEDS: oxyCODONE 5 MG Tab PO PRN ×2 (00:47→10:32)
[2017-06-13] MEDS: guaiFENesin/Dextromethorphan 100-10 MG/5 ML Soln 5 ML Cup PO PRN ×3 (00:48→21:04)
[2017-06-13] MEDS: Pantoprazole 40 MG Tab.CR PO SCH (06:34)
[2017-06-13] MEDS: Heparin Sodium 5,000 Units/ML Vial SUBCUT SCH ×3 (06:35→21:09)
[2017-06-13 07:10] LABS: ANION GAP 13.2
[2017-06-13] MEDS ORDERED: Furosemide 20 MG Tab PO SCH (09:00)
[2017-06-13] MEDS: Acetaminophen 325 MG Tab PO PRN ×2 (10:31→20:42)
[2017-06-13] MEDS: Furosemide 20 MG Tab PO SCH (10:34)
[2017-06-13] MEDS: Calcitriol 0.25 MCG Cap PO SCH (10:35)
[2017-06-13] MEDS: Loratadine 10 MG Tab PO SCH (10:36)
[2017-06-13] MEDS: Clopidogrel 75 MG Tab PO SCH (10:36)
[2017-06-13] MEDS: Ezetimibe 10 MG Tab PO SCH (10:36)
[2017-06-13] MEDS: Aspirin 81 MG Tab.Chew PO SCH (10:37)
[2017-06-13] MEDS: Cyanocobalamin (Vitamin B12) 100 MCG Tab PO SCH (10:37)
[2017-06-13] MEDS: Carvedilol 25 MG Tab PO SCH ×2 (10:39→20:50)
[2017-06-13] MEDS: Isosorbide Mononitrate 60 MG Tab.ER PO SCH ×2 (10:40→20:49)
--- NOTE | 2017-06-13 11:27 | PCM.PN ---
- General Info Date of Service: 06/13/17 Admission Dx/Problem (Free Text): Admission Diagnosis/Problem Admission Diagnosis/Problem Acute bronchitis Subjective Update: Feeling better, nausea and vomiting has much improved. Continues to have mild shortness of breath associated with low-grade temperatures. Similar upper respiratory tract infection symptoms in other family members. No associated chest pain, abdominal pain has improved. - Review of Systems General: Reports: Fever, Weakness Pulmonary: Reports: Shortness of Breath Cardiovascular: Denies: Chest Pain Gastrointestinal: Denies: Abdominal Pain - Patient Data Vitals - Most Recent: Last Vital Signs Temp 37.1 C 06/13/17 10:57 Pulse 60 06/13/17 10:57 Resp 24 H 06/13/17 10:57 BP 143/67 H 06/13/17 10:57 Pulse Ox 100 06/13/17 10:57 Weight - Most Recent: 105.506 kg I&O - Last 24 Hours: Intake & Output 06/12/17 06/13/17 06/13/17 22:59 06:59 14:59 Intake Total 448 440 Output Total 400 Balance 48 440 Lab Results Last 24 Hours: Laboratory Results - last 24 hr 06/13/17 06/13/17 06/13/17 Range/Units 01:00 06:25 06:25 WBC 4.7 L (5.0-10.0) 10^3/uL RBC 3.89 L (4.6-6.2) 10^6/uL Hgb 9.9 L (14.0-18.0) g/dL Hct 31.5 L (40.0-54.0) % MCV 81.0 (80-100) fL MCH 25.4 L (27.0-34.0) pg MCHC 31.4 L (33.0-35.0) g/dL Plt Count 160 (150-450) 10^3/uL Neut % (Auto) 74.6 (42.2-75.2) % Lymph % (Auto) 12.5 L (20.5-50.1) % [place] % (Auto) 12.3 H (2-8) % Eos % (Auto) 0.2 L (1.0-3.0) % Baso % (Auto) 0.4 (0.0-1.0) % Sodium 136 (135-145) mmol/L Potassium 4.2 (3.6-5.0) mmol/L Chloride 108 (101-111) mmol/L Carbon Dioxide 19.0 L (21.0-31.0) mmol/L Anion Gap 13.2 BUN 51 H (7-18) mg/dL Creatinine 3.6 H (0.6-1.3) mg/dL Est Cr Clr Drug Dosing 22.66 mL/min Estimated GFR (MDRD) 17 Glucose 104 (74-105) mg/dL POC Glucose 110 H (70-105) mg/dl Calcium 8.3 L (8.4-10.2) mg/dl 06/13/17 Range/Units 08:17 WBC (5.0-10.0) 10^3/uL RBC (4.6-6.2) 10^6/uL Hgb (14.0-18.0) g/dL Hct (40.0-54.0) % MCV (80-100) fL MCH (27.0-34.0) pg MCHC (33.0-35.0) g/dL Plt Count (150-450) 10^3/uL Neut % (Auto) (42.2-75.2) % Lymph % (Auto) (20.5-50.1) % [place] % (Auto) (2-8) % Eos % (Auto) (1.0-3.0) % Baso % (Auto) (0.0-1.0) % Sodium (135-145) mmol/L Potassium (3.6-5.0) mmol/L Chloride (101-111) mmol/L Carbon Dioxide (21.0-31.0) mmol/L Anion Gap BUN (7-18) mg/dL Creatinine (0.6-1.3) mg/dL Est Cr Clr Drug Dosing mL/min Estimated GFR (MDRD) Glucose (74-105) mg/dL POC Glucose 106 H (70-105) mg/dl Calcium (8.4-10.2) mg/dl Med Orders - Current: Current Medications Acetaminophen (Tylenol) 650 mg PO Q4H PRN PRN Reason: Pain (Mild 1-3)/fever Last Admin: 06/13/17 10:31 Dose: 650 mg Albuterol (Proventil Neb Soln) 2.5 mg NEB Q2H PRN PRN Reason: shortness of breath/wheezing Last Admin: 06/13/17 00:52 Dose: 2.5 mg Aspirin (Aspirin) 81 mg PO DAILY [facility] Last Admin: 06/13/17 10:37 Dose: 81 mg Atorvastatin Calcium (Lipitor) 20 mg PO BEDTIME [facility] Calcitriol (Rocaltrol) 0.25 mcg PO DAILY [facility] Last Admin: 06/13/17 10:35 Dose: 0.25 mcg Carvedilol (Coreg) 50 mg PO BID [facility] Last Admin: 06/13/17 10:39 Dose: 50 mg Clopidogrel Bisulfate (Plavix) 75 mg PO DAILY [facility] Last Admin: 06/13/17 10:36 Dose: 75 mg Cyanocobalamin (Vitamin B12) 100 mcg PO DAILY [facility] Last Admin: 06/13/17 10:37 Dose: 100 mcg Ezetimibe (Zetia) 10 mg PO DAILY [facility] Last Admin: 06/13/17 10:36 Dose: 10 mg Furosemide (Lasix) 60 mg PO DAILY [facility] Last Admin: 06/13/17 10:34 Dose: 60 mg Gabapentin (Neurontin) 300 mg PO BEDTIME [facility] Guaifenesin/Phenylephrine HCl (Robitussin Dm) 10 ml PO Q6H PRN PRN Reason: Cough Last Admin: 06/13/17 10:31 Dose: 10 ml Heparin Sodium (Porcine) (Heparin Sodium) 5,000 units SUBCUT Q8HR [facility] Last Admin: 06/13/17 06:35 Dose: 5,000 units Hydralazine HCl (Apresoline) 150 mg PO Q8H [facility] Last Admin: 06/13/17 10:33 Dose: 150 mg Levofloxacin/Dextrose 500 mg/ (Premix) 100 mls @ 100 mls/hr IV Q48H [facility] Insulin Detemir (Levemir) 25 unit SUBCUT BID [facility] Isosorbide Mononitrate (Imdur) 120 mg PO BID [facility] Last Admin: 06/13/17 10:40 Dose: 120 mg Loratadine (Claritin) 10 mg PO DAILY [facility] Last Admin: 06/13/17 10:36 Dose: 10 mg Lorazepam (Ativan) 1 mg PO QID PRN PRN Reason: Anxiety Metolazone (Zaroxolyn) 2.5 mg PO .48H [facility] Morphine Sulfate (Morphine) 1 mg IVPUSH Q2H PRN PRN Reason: Pain (severe 7-10) Last Admin: 06/13/17 00:49 Dose: 1 mg Ondansetron HCl (Zofran Odt) 4 mg PO Q6H PRN PRN Reason: nausea, able to take PO Ondansetron HCl (Zofran) 4 mg IVPUSH Q6H PRN PRN Reason: Nausea/Vomiting Oseltamivir Phosphate (Tamiflu) 30 mg PO BID [facility] Oxycodone HCl (Oxycodone) 5 mg PO Q4H PRN PRN Reason: Pain (moderate 4-6) Last Admin: 06/13/17 10:32 Dose: 5 mg Pantoprazole Sodium (Protonix) 40 mg PO ACBREAKFAST [facility] Last Admin: 06/13/17 06:34 Dose: 40 mg Sodium Chloride (Saline Flush) 10 ml FLUSH ASDIRECTED PRN PRN Reason: Keep Vein Open Terazosin HCl (Hytrin) 5 mg PO BEDTIME [facility] Zolpidem Tartrate (Ambien) 5 mg PO BEDTIME PRN PRN Reason: Sleep Discontinued Medications Acetaminophen (Tylenol) 650 mg RECTAL NOW STA Stop: 06/12/17 21:26 Last Admin: 06/12/17 21:31 Dose: 650 mg Fentanyl (Sublimaze) 25 mcg IVPUSH ONETIME ONE Stop: 06/12/17 20:40 Last Admin: 06/12/17 21:04 Dose: 25 mcg Levofloxacin/Dextrose 500 mg/ (Premix) 100 mls @ 100 mls/hr IV ONETIME ONE Stop: 06/12/17 23:49 Last Admin: 06/12/17 23:08 Dose: 100 mls/hr Levofloxacin/Dextrose (Levaquin In D5w 500 Mg/100 Ml) 100 mls @ 100 mls/hr IV ONETIME ONE Stop: 06/13/17 01:29 Last Admin: 06/13/17 00:33 Dose: Not Given Metoclopramide HCl (Reglan) 10 mg IVPUSH ONETIME ONE Stop: 06/12/17 20:40 Last Admin: 06/12/17 21:02 Dose: 10 mg Pantoprazole Sodium (Protonix Iv) 40 mg IVPUSH ONETIME ONE Stop: 06/12/17 20:40 Last Admin: 06/12/17 21:03 Dose: 40 mg - Exam Quality Assessment: Supplemental Oxygen General: Alert, Oriented Neck: Supple Lungs: Clear to Auscultation, Normal Respiratory Effort. No: Wheezing GI/Abdominal Exam: Normal Bowel Sounds, Soft, Non-Tender Extremities: No Pedal Edema - Problem List & Annotations (1) Bronchitis SNOMED Code(s): 24029627 Code(s): J40 - BRONCHITIS, NOT SPECIFIED ACUTE OR CHRONIC Status: Acute Priority: Medium Current Visit: No (2) Diabetes mellitus SNOMED Code(s): 58780555 Code(s): E11.9 - TYPE 2 DIABETES MELLITUS WITHOUT COMPLICATIONS Status: Acute Current Visit: No Qualifiers: Diabetes mellitus type: type 2 Diabetes mellitus complication status: with kidney complications Diabetes mellitus complication detail: with nephropathy - Problem List Review Problem List Initiated/Reviewed/Updated: Yes - My Orders Last 24 Hours: My Active Orders 06/13/17 00:05 Dextromethorphan/guaiFENesin [Robitussin DM] 10 ml PO Q6H PRN 06/13/17 00:17 LORazepam [Ativan] 1 mg PO QID PRN 06/13/17 00:30 Metolazone [Zaroxolyn] 2.5 mg PO .48H hydrALAZINE [Apresoline] 150 mg PO Q8H 06/13/17 06:00 Pantoprazole [ProTONIX] 40 mg PO ACBREAKFAST 06/13/17 09:00 Aspirin 81 mg PO DAILY Calcitriol [Rocaltrol] 0.25 mcg PO DAILY Carvedilol [Coreg] 50 mg PO BID Clopidogrel [Plavix] 75 mg PO DAILY Cyanocobalamin (Vitamin B12) [Vitamin B12] 100 mcg PO DAILY Ezetimibe [Zetia] 10 mg PO DAILY Furosemide [Lasix] 60 mg PO DAILY Insulin Detemir [Levemir] 25 unit SUBCUT BID Isosorbide Mononitrate [Imdur] 120 mg PO BID Loratadine [Claritin] 10 mg PO DAILY 06/13/17 11:15 Oseltamivir [Tamiflu] 30 mg PO BID 06/13/17 21:00 Gabapentin [Neurontin] 300 mg PO BEDTIME Terazosin [Hytrin] 5 mg PO BEDTIME atorvaSTATin [Lipitor] 20 mg PO BEDTIME 06/14/17 05:15 BASIC METABOLIC PANEL,BMP [CHEM] AM CBC WITH AUTO DIFF [HEME] AM - Plan Plan:: The patient is a 62-year-old gentleman with a history of chronic kidney disease stage IV, diabetes, dyslipidemia, hypertension. Acute influenza Presented with fever, cough. On chest x-ray there is no apparent pneumonia that the patient most likely has acute bronchitis. sputum culture: pending blood culture: pending Treat with Tamiflu Stop moxifloxacin Nausea, vomiting The patient has benign abdominal examination, no acute findings on CT abdomen. The treat symptomatically with antiemetics Chronic kidney disease stage IV Monitor electrolytes and renal function test Continue current dose of diuretics Hypertension Treat with Coreg, hydralazine, Imdur, metolazone, Lasix Diabetes Use Levemir and Humalog as needed DVT prophylaxis will be with subcutaneous heparin
[2017-06-13] MEDS: Insulin Detemir 100 Units/ML 3 ML Pen SUBCUT SCH ×2 (13:24→21:05)
[2017-06-13] MEDS: Oseltamivir 30 MG Cap PO SCH ×2 (13:25→20:49)
[2017-06-13] MEDS: Insulin Aspart 100 Units/ML 3 ML Pen SUBCUT SCH (17:28)
[2017-06-13] MEDS: Gabapentin 300 MG Cap PO SCH (20:48)
[2017-06-13] MEDS: Terazosin 5 MG Cap PO SCH (20:49)
[2017-06-13] MEDS: atorvaSTATin 20 MG Tab PO SCH (20:49)
[2017-06-14] MEDS: hydrALAZINE 25 MG Tab PO SCH ×3 (00:39→18:16)
[2017-06-14] MEDS: Heparin Sodium 5,000 Units/ML Vial SUBCUT SCH ×3 (05:43→21:02)
[2017-06-14] MEDS: Pantoprazole 40 MG Tab.CR PO SCH (05:44)
[2017-06-14 07:14] LABS: ANION GAP 7.8
[2017-06-14] MEDS: Insulin Aspart 100 Units/ML 3 ML Pen SUBCUT SCH ×3 (08:21→17:07)
[2017-06-14] MEDS: Ezetimibe 10 MG Tab PO SCH (09:21)
[2017-06-14] MEDS: Acetaminophen 325 MG Tab PO PRN (09:36)
[2017-06-14] MEDS: Loratadine 10 MG Tab PO SCH (09:36)
[2017-06-14] MEDS: Furosemide 20 MG Tab PO SCH (09:36)
[2017-06-14] MEDS: Cyanocobalamin (Vitamin B12) 100 MCG Tab PO SCH (09:36)
[2017-06-14] MEDS: Oseltamivir 30 MG Cap PO SCH ×2 (09:37→20:43)
[2017-06-14] MEDS: Isosorbide Mononitrate 60 MG Tab.ER PO SCH ×2 (09:37→20:42)
[2017-06-14] MEDS: Calcitriol 0.25 MCG Cap PO SCH (09:37)
[2017-06-14] MEDS: Clopidogrel 75 MG Tab PO SCH (09:38)
[2017-06-14] MEDS: Aspirin 81 MG Tab.Chew PO SCH (09:38)
[2017-06-14] MEDS: Insulin Detemir 100 Units/ML 3 ML Pen SUBCUT SCH ×2 (09:38→20:58)
[2017-06-14] MEDS: Carvedilol 25 MG Tab PO SCH ×2 (09:38→20:42)
--- NOTE | 2017-06-14 12:09 | PCM.PN ---
- General Info Date of Service: 06/14/17 Admission Dx/Problem (Free Text): Admission Diagnosis/Problem Admission Diagnosis/Problem Acute bronchitis Subjective Update: Feeling better, nausea and vomiting has resolved, tolerating diet. Continues to have mild shortness of breath associated with low-grade temperatures overnight No associated chest pain, abdominal pain has improved. - Review of Systems General: Reports: Fever, Weakness Pulmonary: Denies: Shortness of Breath Cardiovascular: Denies: Chest Pain Gastrointestinal: Denies: Abdominal Pain Genitourinary: Denies: Dysuria - Patient Data Vitals - Most Recent: Last Vital Signs Temp 37.3 C 06/14/17 11:51 Pulse 65 06/14/17 11:51 Resp 20 06/14/17 11:51 BP 141/70 H 06/14/17 11:51 Pulse Ox 95 06/14/17 11:51 Weight - Most Recent: 105.506 kg I&O - Last 24 Hours: Intake & Output 06/13/17 06/14/17 06/14/17 22:59 06:59 14:59 Intake Total 200 950 440 Output Total 500 Balance 200 450 440 Lab Results Last 24 Hours: Laboratory Results - last 24 hr 06/13/17 06/13/17 06/14/17 Range/Units 17:00 21:00 06:06 WBC 3.4 L (5.0-10.0) 10^3/uL RBC 3.59 L (4.6-6.2) 10^6/uL Hgb 9.1 L (14.0-18.0) g/dL Hct 29.2 L (40.0-54.0) % MCV 81.3 (80-100) fL MCH 25.3 L (27.0-34.0) pg MCHC 31.2 L (33.0-35.0) g/dL Plt Count 147 L (150-450) 10^3/uL Neut % (Auto) 57.1 (42.2-75.2) % Lymph % (Auto) 25.7 (20.5-50.1) % [place] % (Auto) 15.7 H (2-8) % Eos % (Auto) 1.2 (1.0-3.0) % Baso % (Auto) 0.3 (0.0-1.0) % Sodium (135-145) mmol/L Potassium (3.6-5.0) mmol/L Chloride (101-111) mmol/L Carbon Dioxide (21.0-31.0) mmol/L Anion Gap BUN (7-18) mg/dL Creatinine (0.6-1.3) mg/dL Est Cr Clr Drug Dosing mL/min Estimated GFR (MDRD) Glucose (74-105) mg/dL POC Glucose 116 H 107 H (70-105) mg/dl Calcium (8.4-10.2) mg/dl 06/14/17 06/14/17 06/14/17 Range/Units 06:06 08:04 11:23 WBC (5.0-10.0) 10^3/uL RBC (4.6-6.2) 10^6/uL Hgb (14.0-18.0) g/dL Hct (40.0-54.0) % MCV (80-100) fL MCH (27.0-34.0) pg MCHC (33.0-35.0) g/dL Plt Count (150-450) 10^3/uL Neut % (Auto) (42.2-75.2) % Lymph % (Auto) (20.5-50.1) % [place] % (Auto) (2-8) % Eos % (Auto) (1.0-3.0) % Baso % (Auto) (0.0-1.0) % Sodium 133 L (135-145) mmol/L Potassium 3.8 (3.6-5.0) mmol/L Chloride 108 (101-111) mmol/L Carbon Dioxide 21.0 (21.0-31.0) mmol/L Anion Gap 7.8 BUN 57 H (7-18) mg/dL Creatinine 4.0 H (0.6-1.3) mg/dL Est Cr Clr Drug Dosing 20.39 mL/min Estimated GFR (MDRD) 15 Glucose 70 L (74-105) mg/dL POC Glucose 68 L 124 H (70-105) mg/dl Calcium 7.9 L (8.4-10.2) mg/dl Med Orders - Current: Current Medications Acetaminophen (Tylenol) 650 mg PO Q4H PRN PRN Reason: Pain (Mild 1-3)/fever Last Admin: 06/14/17 09:36 Dose: 650 mg Albuterol (Proventil Neb Soln) 2.5 mg NEB Q2H PRN PRN Reason: shortness of breath/wheezing Last Admin: 06/13/17 00:52 Dose: 2.5 mg Aspirin (Aspirin) 81 mg PO DAILY [facility] Last Admin: 06/14/17 09:38 Dose: 81 mg Atorvastatin Calcium (Lipitor) 20 mg PO BEDTIME [facility] Last Admin: 06/13/17 20:49 Dose: 20 mg Calcitriol (Rocaltrol) 0.25 mcg PO DAILY [facility] Last Admin: 06/14/17 09:37 Dose: 0.25 mcg Carvedilol (Coreg) 50 mg PO BID [facility] Last Admin: 06/14/17 09:38 Dose: 50 mg Clopidogrel Bisulfate (Plavix) 75 mg PO DAILY [facility] Last Admin: 06/14/17 09:38 Dose: 75 mg Cyanocobalamin (Vitamin B12) 100 mcg PO DAILY [facility] Last Admin: 06/14/17 09:36 Dose: 100 mcg Ezetimibe (Zetia) 10 mg PO DAILY [facility] Last Admin: 06/14/17 09:21 Dose: 10 mg Furosemide (Lasix) 60 mg PO DAILY [facility] Last Admin: 06/14/17 09:36 Dose: 60 mg Gabapentin (Neurontin) 300 mg PO BEDTIME [facility] Last Admin: 06/13/17 20:48 Dose: 300 mg Guaifenesin/Phenylephrine HCl (Robitussin Dm) 10 ml PO Q6H PRN PRN Reason: Cough Last Admin: 06/13/17 21:04 Dose: 10 ml Heparin Sodium (Porcine) (Heparin Sodium) 5,000 units SUBCUT Q8HR [facility] Last Admin: 06/14/17 05:43 Dose: 5,000 units Hydralazine HCl (Apresoline) 150 mg PO Q8H [facility] Last Admin: 06/14/17 09:37 Dose: 150 mg Insulin Aspart (Novolog) 0 unit SUBCUT TIDAC [facility] PRN Reason: Protocol Last Admin: 06/14/17 11:42 Dose: Not Given Insulin Detemir (Levemir) 25 unit SUBCUT BID [facility] Last Admin: 06/14/17 09:38 Dose: 25 units Isosorbide Mononitrate (Imdur) 120 mg PO BID [facility] Last Admin: 06/14/17 09:37 Dose: 120 mg Loratadine (Claritin) 10 mg PO DAILY [facility] Last Admin: 06/14/17 09:36 Dose: 10 mg Lorazepam (Ativan) 1 mg PO QID PRN PRN Reason: Anxiety Metolazone (Zaroxolyn) 2.5 mg PO Q48H [facility] Morphine Sulfate (Morphine) 1 mg IVPUSH Q2H PRN PRN Reason: Pain (severe 7-10) Last Admin: 06/13/17 00:49 Dose: 1 mg Ondansetron HCl (Zofran Odt) 4 mg PO Q6H PRN PRN Reason: nausea, able to take PO Ondansetron HCl (Zofran) 4 mg IVPUSH Q6H PRN PRN Reason: Nausea/Vomiting Oseltamivir Phosphate (Tamiflu) 30 mg PO BID [facility] Last Admin: 06/14/17 09:37 Dose: 30 mg Oxycodone HCl (Oxycodone) 5 mg PO Q4H PRN PRN Reason: Pain (moderate 4-6) Last Admin: 06/13/17 10:32 Dose: 5 mg Pantoprazole Sodium (Protonix) 40 mg PO ACBREAKFAST [facility] Last Admin: 06/14/17 05:44 Dose: 40 mg Sodium Chloride (Saline Flush) 10 ml FLUSH ASDIRECTED PRN PRN Reason: Keep Vein Open Last Admin: 06/13/17 21:11 Dose: 10 ml Terazosin HCl (Hytrin) 5 mg PO BEDTIME [facility] Last Admin: 06/13/17 20:49 Dose: 5 mg Zolpidem Tartrate (Ambien) 5 mg PO BEDTIME PRN PRN Reason: Sleep Discontinued Medications Acetaminophen (Tylenol) 650 mg RECTAL NOW STA Stop: 06/12/17 21:26 Last Admin: 06/12/17 21:31 Dose: 650 mg Fentanyl (Sublimaze) 25 mcg IVPUSH ONETIME ONE Stop: 06/12/17 20:40 Last Admin: 06/12/17 21:04 Dose: 25 mcg Levofloxacin/Dextrose 500 mg/ (Premix) 100 mls @ 100 mls/hr IV ONETIME ONE Stop: 06/12/17 23:49 Last Admin: 06/12/17 23:08 Dose: 100 mls/hr Levofloxacin/Dextrose 500 mg/ (Premix) 100 mls @ 100 mls/hr IV Q48H [facility] Levofloxacin/Dextrose (Levaquin In D5w 500 Mg/100 Ml) 100 mls @ 100 mls/hr IV ONETIME ONE Stop: 06/13/17 01:29 Last Admin: 06/13/17 00:33 Dose: Not Given Metoclopramide HCl (Reglan) 10 mg IVPUSH ONETIME ONE Stop: 06/12/17 20:40 Last Admin: 06/12/17 21:02 Dose: 10 mg Pantoprazole Sodium (Protonix Iv) 40 mg IVPUSH ONETIME ONE Stop: 06/12/17 20:40 Last Admin: 06/12/17 21:03 Dose: 40 mg - Exam Quality Assessment: No: Supplemental Oxygen General: Alert, Oriented Neck: Supple Lungs: Clear to Auscultation, Normal Respiratory Effort Cardiovascular: Regular Rate, Regular Rhythm Extremities: No Pedal Edema - Problem List & Annotations (1) Bronchitis SNOMED Code(s): 96828159 Code(s): J40 - BRONCHITIS, NOT SPECIFIED ACUTE OR CHRONIC Status: Acute Priority: Medium Current Visit: No (2) Diabetes mellitus SNOMED Code(s): 00631222 Code(s): E11.9 - TYPE 2 DIABETES MELLITUS WITHOUT COMPLICATIONS Status: Acute Current Visit: No Qualifiers: Diabetes mellitus type: type 2 Diabetes mellitus complication status: with kidney complications Diabetes mellitus complication detail: with nephropathy - Problem List Review Problem List Initiated/Reviewed/Updated: Yes - My Orders Last 24 Hours: My Active Orders 06/13/17 11:28 Glucose [Blood Glucose Check, Bedside] [RC] QIDACANDBED 06/13/17 12:45 Oseltamivir [Tamiflu] 30 mg PO BID 06/13/17 17:00 Insulin Aspart [NovoLOG] See Protocol SUBCUT TIDAC 06/13/17 21:00 Gabapentin [Neurontin] 300 mg PO BEDTIME Terazosin [Hytrin] 5 mg PO BEDTIME atorvaSTATin [Lipitor] 20 mg PO BEDTIME 06/14/17 21:00 Metolazone [Zaroxolyn] 2.5 mg PO Q48H - Plan Plan:: The patient is a 62-year-old gentleman with a history of chronic kidney disease stage IV, diabetes, dyslipidemia, hypertension. Acute influenza Presented with fever, cough. On chest x-ray there is no apparent pneumonia that the patient most likely has acute bronchitis. sputum culture: pending blood culture: Negative for now Treat with Tamiflu Continue supportive care Nausea, vomiting The patient has benign abdominal examination, no acute findings on CT abdomen. The treat symptomatically with antiemetics Chronic kidney disease stage IV Monitor electrolytes and renal function test Continue current dose of diuretics Hypertension Treat with Coreg, hydralazine, Imdur, metolazone, Lasix Diabetes Use Levemir and Humalog as needed DVT prophylaxis will be with subcutaneous heparin
[2017-06-14] MEDS: Terazosin 5 MG Cap PO SCH (20:41)
[2017-06-14] MEDS: Gabapentin 300 MG Cap PO SCH (20:42)
[2017-06-14] MEDS: atorvaSTATin 20 MG Tab PO SCH (20:43)
[2017-06-14] MEDS ORDERED: Metolazone 2.5 MG Tab PO SCH (21:00)
[2017-06-14] MEDS ORDERED: Levofloxacin/Dextrose 5%-Water 500 MG in Premix Bag 1 BAG IV SCH (23:45)
[2017-06-15] MEDS: hydrALAZINE 25 MG Tab PO SCH ×2 (00:18→09:41)
[2017-06-15] MEDS: Pantoprazole 40 MG Tab.CR PO SCH (05:54)
[2017-06-15] MEDS: Heparin Sodium 5,000 Units/ML Vial SUBCUT SCH (05:54)
[2017-06-15] MEDS: Insulin Aspart 100 Units/ML 3 ML Pen SUBCUT SCH (09:02)
[2017-06-15] MEDS: Aspirin 81 MG Tab.Chew PO SCH (09:41)
[2017-06-15] MEDS: Furosemide 20 MG Tab PO SCH (09:42)
[2017-06-15] MEDS: Ezetimibe 10 MG Tab PO SCH (09:42)
[2017-06-15] MEDS: Isosorbide Mononitrate 60 MG Tab.ER PO SCH (09:42)
[2017-06-15] MEDS: Calcitriol 0.25 MCG Cap PO SCH (09:42)
[2017-06-15] MEDS: Loratadine 10 MG Tab PO SCH (09:42)
[2017-06-15] MEDS: Oseltamivir 30 MG Cap PO SCH (09:42)
[2017-06-15] MEDS: Cyanocobalamin (Vitamin B12) 100 MCG Tab PO SCH (09:43)
[2017-06-15] MEDS: Carvedilol 25 MG Tab PO SCH (09:43)
[2017-06-15] MEDS: Clopidogrel 75 MG Tab PO SCH (09:43)
[2017-06-15] MEDS: Insulin Detemir 100 Units/ML 3 ML Pen SUBCUT SCH (09:44)
--- NOTE | 2017-06-15 11:04 | PCM.DCSUM1 ---
Discharge Summary - Hospital Course Free Text/Narrative:: The patient is a 62-year-old gentleman with a history of chronic kidney disease stage IV, diabetes, dyslipidemia, hypertension. Acute influenza Presented with fever, cough. On chest x-ray there is no apparent pneumonia that the patient most likely has acute bronchitis. sputum culture: neg blood culture: Negative for now Treat with Tamiflu, supportive care Nausea, vomiting The patient has benign abdominal examination, no acute findings on CT abdomen. treated symptomatically with antiemetics resolved Chronic kidney disease stage IV remained stable Continue current dose of diuretics Hypertension Treat with Coreg, hydralazine, Imdur, metolazone, Lasix Diabetes Use Levemir and Humalog as needed - Discharge Data Discharge Date: 06/15/17 Discharge Disposition: Home, Self-Care 01 Condition: Fair - Discharge Diagnosis/Problem(s) (1) Bronchitis SNOMED Code(s): 21615753 ICD Code: J40 - BRONCHITIS, NOT SPECIFIED ACUTE OR CHRONIC Status: Acute Priority: Medium Current Visit: No (2) Diabetes mellitus SNOMED Code(s): 96603908 ICD Code: E11.9 - TYPE 2 DIABETES MELLITUS WITHOUT COMPLICATIONS Status: Acute Current Visit: No Qualifiers: Diabetes mellitus type: type 2 Diabetes mellitus complication status: with kidney complications Diabetes mellitus complication detail: with nephropathy (3) Influenza SNOMED Code(s): 1983810 ICD Code: J11.1 - FLU DUE TO UNIDENTIFIED INFLUENZA VIRUS W OTH RESP MANIFEST Status: Acute Current Visit: Yes - Patient Instructions Diet: Renal Diet Activity: As Tolerated - Discharge Plan Prescriptions/Med Rec: Oseltamivir [Tamiflu] 30 mg PO BID #8 cap Home Medications: Home Meds Hydrocodone/Acetaminophen [Hydrocodone-Acetaminophen 5-325] 1 tab PO TID PRN 03/25 [History] Insulin Detemir [Levemir Flexpen] 30 unit SQ BID 01/19/14 [History] Aspirin [Children's Aspirin] 81 mg PO DAILY 05/15/16 [History] Ezetimibe [Zetia] 10 mg PO DAILY 05/15/16 [History] Gabapentin [Neurontin] 300 mg PO BEDTIME 05/15/16 [History] LORazepam 1 mg PO QID PRN 05/15/16 [History] Loratadine 10 mg PO DAILY 05/15/16 [History] Terazosin HCl [Terazosin] 5 mg PO BEDTIME 05/15/16 [History] Docusate Sodium 100 mg PO BID PRN #60 capsule 12/29/16 [Rx] Isosorbide Mononitrate [Imdur] 120 mg PO BID 05/27/17 [History] Calcitriol [Rocaltrol] 0.25 mcg PO DAILY 06/12/17 [History] Calcium Citrate/Vitamin D3 [Calcium Citrate + D] 2 each PO BID 06/12/17 [History ] Carvedilol 50 mg PO BID 06/12/17 [History] Cyanocobalamin (Vitamin B-12) [Vitamin B-12] 100 mcg PO DAILY 06/12/17 [History] Furosemide 60 mg PO DAILY 06/12/17 [History] Metolazone [Zaroxolyn] 2.5 mg PO .48H 06/12/17 [History] atorvaSTATin [Lipitor] 20 mg PO BEDTIME 06/12/17 [History] hydrALAZINE [Apresoline] 150 mg PO Q8H 06/12/17 [History] Omeprazole 20 mg PO DAILY 06/13/17 [History] Oseltamivir [Tamiflu] 30 mg PO BID #8 cap 06/15/17 [Rx] Patient Handouts: Influenza, Adult, [id number], Oseltamivir capsules, Acute Bronchitis Referrals: PCP,Unobtain [Ordering Only Provider] - (in 2-3 days) - Discharge Summary/Plan Comment DC Time >30 min.: No - General Info Date of Service: 06/15/17 Functional Status: Reports: Tolerating Diet - Review of Systems General: Denies: Fever, Weakness Pulmonary: Denies: Shortness of Breath Cardiovascular: Denies: Chest Pain Gastrointestinal: Denies: Abdominal Pain - Patient Data Vitals - Most Recent: Last Vital Signs Temp 37.2 C 06/15/17 07:58 Pulse 55 L 06/15/17 09:43 Resp 20 06/15/17 07:58 BP 134/62 06/15/17 09:43 Pulse Ox 96 06/15/17 07:58 Weight - Most Recent: 105.506 kg I&O - Last 24 hours: Intake & Output 06/14/17 06/15/17 06/15/17 22:59 06:59 14:59 Intake Total 325 900 565 Output Total 750 Balance 325 150 565 Lab Results - Last 24 hrs: Laboratory Results - last 24 hr 06/14/17 06/14/17 06/14/17 Range/Units 11:23 16:56 20:51 POC Glucose 124 H 89 81 (70-105) mg/dl 06/15/17 Range/Units 07:40 POC Glucose 78 (70-105) mg/dl Med Orders - Current: Current Medications Acetaminophen (Tylenol) 650 mg PO Q4H PRN PRN Reason: Pain (Mild 1-3)/fever Last Admin: 06/14/17 09:36 Dose: 650 mg Albuterol (Proventil Neb Soln) 2.5 mg NEB Q2H PRN PRN Reason: shortness of breath/wheezing Last Admin: 06/13/17 00:52 Dose: 2.5 mg Aspirin (Aspirin) 81 mg PO DAILY [facility] Last Admin: 06/15/17 09:41 Dose: 81 mg Atorvastatin Calcium (Lipitor) 20 mg PO BEDTIME [facility] Last Admin: 06/14/17 20:43 Dose: 20 mg Calcitriol (Rocaltrol) 0.25 mcg PO DAILY [facility] Last Admin: 06/15/17 09:42 Dose: 0.25 mcg Carvedilol (Coreg) 50 mg PO BID [facility] Last Admin: 06/15/17 09:43 Dose: 50 mg Clopidogrel Bisulfate (Plavix) 75 mg PO DAILY [facility] Last Admin: 06/15/17 09:43 Dose: 75 mg Cyanocobalamin (Vitamin B12) 100 mcg PO DAILY [facility] Last Admin: 06/15/17 09:43 Dose: 100 mcg Ezetimibe (Zetia) 10 mg PO DAILY [facility] Last Admin: 06/15/17 09:42 Dose: 10 mg Furosemide (Lasix) 60 mg PO DAILY [facility] Last Admin: 06/15/17 09:42 Dose: 60 mg Gabapentin (Neurontin) 300 mg PO BEDTIME [facility] Last Admin: 06/14/17 20:42 Dose: 300 mg Guaifenesin/Phenylephrine HCl (Robitussin Dm) 10 ml PO Q6H PRN PRN Reason: Cough Last Admin: 06/13/17 21:04 Dose: 10 ml Heparin Sodium (Porcine) (Heparin Sodium) 5,000 units SUBCUT Q8HR [facility] Last Admin: 06/15/17 05:54 Dose: 5,000 units Hydralazine HCl (Apresoline) 150 mg PO Q8H [facility] Last Admin: 06/15/17 09:41 Dose: 150 mg Insulin Aspart (Novolog) 0 unit SUBCUT TIDAC [facility] PRN Reason: Protocol Last Admin: 06/15/17 09:02 Dose: Not Given Insulin Detemir (Levemir) 25 unit SUBCUT BID [facility] Last Admin: 06/15/17 09:44 Dose: 15 units Isosorbide Mononitrate (Imdur) 120 mg PO BID [facility] Last Admin: 06/15/17 09:42 Dose: 120 mg Loratadine (Claritin) 10 mg PO DAILY [facility] Last Admin: 06/15/17 09:42 Dose: 10 mg Lorazepam (Ativan) 1 mg PO QID PRN PRN Reason: Anxiety Metolazone (Zaroxolyn) 2.5 mg PO Q48H [facility] Last Admin: 06/14/17 20:57 Dose: 2.5 mg Morphine Sulfate (Morphine) 1 mg IVPUSH Q2H PRN PRN Reason: Pain (severe 7-10) Last Admin: 06/13/17 00:49 Dose: 1 mg Ondansetron HCl (Zofran Odt) 4 mg PO Q6H PRN PRN Reason: nausea, able to take PO Ondansetron HCl (Zofran) 4 mg IVPUSH Q6H PRN PRN Reason: Nausea/Vomiting Oseltamivir Phosphate (Tamiflu) 30 mg PO BID [facility] Last Admin: 06/15/17 09:42 Dose: 30 mg Oxycodone HCl (Oxycodone) 5 mg PO Q4H PRN PRN Reason: Pain (moderate 4-6) Last Admin: 06/13/17 10:32 Dose: 5 mg Pantoprazole Sodium (Protonix) 40 mg PO ACBREAKFAST [facility] Last Admin: 06/15/17 05:54 Dose: 40 mg Sodium Chloride (Saline Flush) 10 ml FLUSH ASDIRECTED PRN PRN Reason: Keep Vein Open Last Admin: 06/13/17 21:11 Dose: 10 ml Terazosin HCl (Hytrin) 5 mg PO BEDTIME [facility] Last Admin: 06/14/17 20:41 Dose: 5 mg Zolpidem Tartrate (Ambien) 5 mg PO BEDTIME PRN PRN Reason: Sleep Discontinued Medications Acetaminophen (Tylenol) 650 mg RECTAL NOW STA Stop: 06/12/17 21:26 Last Admin: 06/12/17 21:31 Dose: 650 mg Fentanyl (Sublimaze) 25 mcg IVPUSH ONETIME ONE Stop: 06/12/17 20:40 Last Admin: 06/12/17 21:04 Dose: 25 mcg Levofloxacin/Dextrose 500 mg/ (Premix) 100 mls @ 100 mls/hr IV ONETIME ONE Stop: 06/12/17 23:49 Last Admin: 06/12/17 23:08 Dose: 100 mls/hr Levofloxacin/Dextrose 500 mg/ (Premix) 100 mls @ 100 mls/hr IV Q48H [facility] Levofloxacin/Dextrose (Levaquin In D5w 500 Mg/100 Ml) 100 mls @ 100 mls/hr IV ONETIME ONE Stop: 06/13/17 01:29 Last Admin: 06/13/17 00:33 Dose: Not Given Metoclopramide HCl (Reglan) 10 mg IVPUSH ONETIME ONE Stop: 06/12/17 20:40 Last Admin: 06/12/17 21:02 Dose: 10 mg Pantoprazole Sodium (Protonix Iv) 40 mg IVPUSH ONETIME ONE Stop: 06/12/17 20:40 Last Admin: 06/12/17 21:03 Dose: 40 mg - Exam General: Reports: Alert, Oriented Neck: Reports: Supple Lungs: Reports: Clear to Auscultation, Normal Respiratory Effort Cardiovascular: Reports: Regular Rate, Regular Rhythm GI/Abdominal Exam: Soft, Non-Tender Extremities: No Pedal Edema *Q Meaningful Use (DIS) - VTE *Q VTE Criteria *Q: - Stroke *Q Stroke Criteria *Q: - AMI *Q AMI Criteria *Q:
[2017-06-15 11:53] VITALS: BP 132/54
== END 2017-06-15 12:05 | disposition home or self-care (01) | DRG 144 ==
LOC: DL.ED 19:03 → UNDOADMIN 23:40 → DL.MS 23:40
PROVIDERS: ADMIT Internal Medicine; ATTEND Internal Medicine
DX: J40 Bronchitis, not specified as acute or chronic (principal); N18.4 Chronic kidney disease, stage 4 (severe); E78.5 Hyperlipidemia, unspecified; I12.9 Hypertensive chronic kidney disease with stage 1 through stage 4 chronic kidney disease, or unspecified chronic kidney disease; Z79.4 Long term (current) use of insulin; E11.22 Type 2 diabetes mellitus with diabetic chronic kidney disease; I25.10 Atherosclerotic heart disease of native coronary artery without angina pectoris; E11.40 Type 2 diabetes mellitus with diabetic neuropathy, unspecified; J11.1 Influenza due to unidentified influenza virus with other respiratory manifestations
CPT/HCPCS: 36415; 71046; 74176; 80048; 80053; 81001; 82272; 82962; 83605; 85025; 87040; 87804; 96365; 96366; 96375; 99285; A9270-GY; C9113; J1644; J1815-GY; J1956; J2270; J2765; J3010; J7050; J7620-GY

== ENCOUNTER 2017-07-07 20:32 | Emergency (ER) | payer OTHER, BC ==
[2017-07-07] MEDS ORDERED: Albuterol 0.083% 2.5 MG/3 ML Neb Soln INH ONE (20:33)
[2017-07-07] MEDS ORDERED: Sodium Chloride 0.9% 10 ML Syringe FLUSH PRN (20:48)
--- NOTE | 2017-07-07 21:08 | EDM.PDOC ---
ED HPI GENERAL MEDICAL PROBLEM - General Chief Complaint: Fever Stated Complaint: FEVER,CHEST CONGESTION Time Seen by Provider: 07/07/17 20:50 Source of Information: Reports: Patient History Limitations: Reports: No Limitations - History of Present Illness INITIAL COMMENTS - FREE TEXT/NARRATIVE: Patient comes emergency department today with complaints of fever cough and congestion. This started this afternoon rather suddenly. He did try some Tylenol prior to arrival. He was actually seen in the clinic earlier today for a 3 month evaluation without any complaints and was afebrile at that time. Since that time he has developed body aches fever and chills. A congested cough that is nonproductive. He also complains of intermittent pressure on his chest that is worse with a deep breath cough and movement. He denies any headache or sinus congestion or throat pain. He denies any abdominal pain nausea or vomiting. He denies any hematuria dysuria or urinary frequency. He did take some Tylenol prior to arrival. - Related Data Allergies Allergy/AdvReac Type Severity Reaction Status Date / Time No Known Allergies Allergy Verified 07/07/17 20:46 Home Meds: Home Meds Hydrocodone/Acetaminophen [Hydrocodone-Acetaminophen 5-325] 1 tab PO TID PRN 03/25 [History] Insulin Detemir [Levemir Flexpen] 30 unit SQ BID 01/19/14 [History] Aspirin [Children's Aspirin] 81 mg PO DAILY 05/15/16 [History] Ezetimibe [Zetia] 10 mg PO DAILY 05/15/16 [History] Gabapentin [Neurontin] 300 mg PO BEDTIME 05/15/16 [History] LORazepam 1 mg PO QID PRN 05/15/16 [History] Loratadine 10 mg PO DAILY 05/15/16 [History] Terazosin HCl [Terazosin] 5 mg PO BEDTIME 05/15/16 [History] Docusate Sodium 100 mg PO BID PRN #60 capsule 12/29/16 [Rx] Isosorbide Mononitrate [Imdur] 120 mg PO BID 05/27/17 [History] Calcitriol [Rocaltrol] 0.25 mcg PO DAILY 06/12/17 [History] Calcium Citrate/Vitamin D3 [Calcium Citrate + D] 2 each PO BID 06/12/17 [History ] Carvedilol 50 mg PO BID 06/12/17 [History] Cyanocobalamin (Vitamin B-12) [Vitamin B-12] 100 mcg PO DAILY 06/12/17 [History] Furosemide 60 mg PO DAILY 06/12/17 [History] Metolazone [Zaroxolyn] 2.5 mg PO .48H 06/12/17 [History] atorvaSTATin [Lipitor] 20 mg PO BEDTIME 06/12/17 [History] hydrALAZINE [Apresoline] 150 mg PO Q8H 06/12/17 [History] Omeprazole 20 mg PO DAILY 06/13/17 [History] Oseltamivir [Tamiflu] 30 mg PO BID #8 cap 06/15/17 [Rx] Past Medical History HEENT History: Reports: Impaired Vision Other HEENT History: WEARS CORRECTIVE LENSES; UPPER AND LOWER DENTURE PLATE Cardiovascular History: Reports: CAD, Heart Failure, High Cholesterol, Hypertension, Stents Respiratory History: Reports: Pneumonia, Recurrent, SOB, Other (See Below) Other Respiratory History: recent bronchitis Gastrointestinal History: Reports: Chronic Constipation, Colon Polyp, Gastritis , GERD Other Gastrointestinal History: gall stones Genitourinary History: Reports: BPH, Chronic Renal Insuffiency Musculoskeletal History: Reports: Fracture Other Musculoskeletal History: missing tip of pinkie on left hand Neurological History: Reports: Headaches, Chronic, Neuropathy, Diabetic Psychiatric History: Reports: Anxiety Endocrine/Metabolic History: Reports: Diabetes, Type II Hematologic History: Reports: None Immunologic History: Reports: None Oncologic (Cancer) History: Reports: None Dermatologic History: Reports: None - Infectious Disease History Infectious Disease History: Reports: Measles - Past Surgical History Head Surgeries/Procedures: Reports: None Cardiovascular Surgical History: Reports: None, Coronary Artery Stent Respiratory Surgical History: Reports: None GI Surgical History: Reports: Cholecystectomy Male Surgical History: Reports: None Musculoskeletal Surgical History: Reports: None Other Musculoskeletal Surgeries/Procedures:: LEFT ANKLE SURGERY Oncologic Surgical History: Reports: None Dermatological Surgical History: Reports: None Social & Family History - Family History Family Medical History: Noncontributory : Reports: Renal Disease/Insufficiency Neurological: Reports: TIA Endocrine/Metabolic: Reports: Diabetes, type II - Tobacco Use Smoking Status *Q: Never Smoker Years of Tobacco use: 30 Packs/Tins Daily: 1 Used Tobacco, but Quit: Yes Month Tobacco Last Used: unknown Second Hand Smoke Exposure: No - Caffeine Use Caffeine Use: Reports: Coffee Caffeine Use Comment: decaf coffee - Alcohol Use Days Per Week of Alcohol Use: 1 Number of Drinks Per Day: 5 Total Drinks Per Week: 5 - Recreational Drug Use Recreational Drug Use: No Drug Use in Last 12 Months: No - Living Situation & Occupation Living situation: Reports: with Family, Occupation: Employed ED ROS GENERAL - Review of Systems Review Of Systems: ROS reveals no pertinent complaints other than HPI. ED EXAM, GENERAL - Physical Exam Exam: See Below Exam Limited By: No Limitations General Appearance: Alert, WD/WN, No Apparent Distress Eye Exam: Bilateral Eye: Normal Inspection Ears: Normal External Exam, Normal Canal, Normal TMs Nose: Normal Inspection, Normal Mucosa, No Blood Throat/Mouth: Normal Inspection, Normal Lips, Normal Oropharynx Head: Atraumatic, Normocephalic Neck: Normal Inspection, Supple Respiratory/Chest: No Respiratory Distress, No Accessory Muscle Use, Decreased Breath Sounds (Bilaterally.), Rhonchi (On the right.), Wheezing (Inspiratory and expiratory wheezing bilaterally more on the right than the left.). No: Rales, Accessory Muscle Use Cardiovascular: Normal Peripheral Pulses, Regular Rate, Rhythm Peripheral Pulses: 2+: Radial (L), Radial (R), Posterior Tibial (L), Posterior Tibial (R), Dorsalis Pedis (L), Dorsalis Pedis (R) GI/Abdominal: Normal Bowel Sounds, Soft, Non-Tender (Male) Exam: Deferred Rectal (Males) Exam: Deferred Back Exam: Normal Inspection Extremities: Normal Inspection, Normal Range of Motion, Normal Capillary Refill , Increased Warmth. No: Pallor Neurological: Alert, Oriented, CN II-XII Intact Psychiatric: Normal Affect, Normal Mood Skin Exam: Intact, No Rash, Diaphoretic, Increased Warmth, Pallor EKG INTERPRETATION EKG Date: 07/07/17 Time: 20:54 Rhythm: NSR Rate (Beats/Min): 62 [place]: Normal P-Wave: Present QRS: Normal ST-T: Normal QT: Normal Comparison: No Change Course - Vital Signs Last Recorded V/S: Last Vital Signs Temp 37.9 C 07/07/17 22:04 Pulse 88 07/07/17 20:40 Resp 22 H 07/07/17 20:40 BP 171/78 H 07/07/17 20:40 Pulse Ox 95 07/07/17 20:40 Vital Signs 07/07/17 07/07/17 20:40 22:04 Temperature [ 39.1 C H 37.9 C Temporal] Pulse, 88 Peripheral [ Pulse Oximetry] Respiratory 22 H Rate Blood Pressure 171/78 H [Right Upper Arm] O2 Sat by Pulse 95 Oximetry - Orders/Labs/Meds Orders: Active Orders 24 hr Category Date Time Status EKG 12 Lead [EKG Documentation Completion] [] URGENT Care 07/07/17 20:48 Active Peripheral IV Care [RC] . DIRECTED Care 07/07/17 20:48 Active RT Aerosol Therapy [] ASDIRECTED Care 07/07/17 21:28 Active CULTURE BLOOD [BC] Stat Lab 07/07/17 21:09 Received CULTURE BLOOD [] Stat Lab 07/07/17 21:13 Received Sodium Chloride 0.9% [Saline Flush] Med 07/07/17 20:48 Active 10 ml FLUSH ASDIRECTED PRN Blood Culture x2 Reflex Set [OM.PC] Stat Oth 07/07/17 20:48 Ordered Peripheral IV Insertion Adult [OM.PC] Stat Oth 07/07/17 20:48 Ordered Medication Orders Sodium Chloride (Saline Flush) 10 ml FLUSH ASDIRECTED PRN PRN Reason: Keep Vein Open Labs: Laboratory Tests 07/07/17 07/07/17 07/07/17 Range/Units 21:09 21:09 21:09 WBC 14.1 H (5.0-10.0) 10^3/uL RBC 4.01 L (4.6-6.2) 10^6/uL Hgb 10.2 L (14.0-18.0) g/dL Hct 31.6 L (40.0-54.0) % MCV 78.8 L (80-100) fL MCH 25.4 L (27.0-34.0) pg MCHC 32.3 L (33.0-35.0) g/dL Plt Count 184 (150-450) 10^3/uL Neut % (Auto) 86.2 H (42.2-75.2) % Lymph % (Auto) 6.7 L (20.5-50.1) % [place] % (Auto) 6.1 (2-8) % Eos % (Auto) 0.9 L (1.0-3.0) % Baso % (Auto) 0.1 (0.0-1.0) % Add Manual Diff Yes Neutrophils % (Manual) 73 (42-75) % Band Neutrophils % 10 % Lymphocytes % (Manual) 8 L (20-50) % Monocytes % (Manual) 4 (2-8) % Eosinophils % (Manual) 3 (1-3) % Metamyelocytes % 1 Myelocytes % 1 Toxic Granulation 1+ slight Platelet Estimate Adequate Hypochromasia 1+ slight Microcytosis 1+ slight Sodium 136 (135-145) mmol/L Potassium 3.8 (3.6-5.0) mmol/L Chloride 109 (101-111) mmol/L Carbon Dioxide 19.0 L (21.0-31.0) mmol/L Anion Gap 11.8 BUN 55 H (7-18) mg/dL Creatinine 3.5 H (0.6-1.3) mg/dL Est Cr Clr Drug Dosing 23.31 mL/min Estimated GFR (MDRD) 18 BUN/Creatinine Ratio 15.71 Glucose 257 H (74-105) mg/dL Lactic Acid 1.9 (0.5-2.2) mmol/L Calcium 8.3 L (8.4-10.2) mg/dl Total Bilirubin 0.4 (0.2-1.0) mg/dL AST 32 (10-42) IU/L ALT 18 (10-60) IU/L Alkaline Phosphatase 119 (42-121) IU/L Troponin I 0.03 H* (0.00-0.02) ng/ml C-Reactive Protein (0.0-1.3) mg/dL B-Natriuretic Peptide (0-100) pg/ml Total Protein 6.7 (6.7-8.2) g/dl Albumin 3.0 L (3.2-5.5) g/dl Globulin 3.7 Albumin/Globulin Ratio 0.81 Urine Color (YELLOW) Urine Appearance (CLEAR) Urine pH (5.0-9.0) Ur Specific [place] (1.005-1.030) Urine Protein (NEGATIVE) Urine Glucose (UA) (NEGATIVE) Urine Ketones (NEGATIVE) Urine Occult Blood (NEGATIVE) Urine Nitrite (NEGATIVE) Urine Bilirubin (NEGATIVE) Urine Urobilinogen (0.2-1.0) mg/dL Ur Leukocyte Esterase (NEGATIVE) Urine RBC /HPF Urine WBC (0-5/HPF) /HPF Ur Epithelial Cells /HPF Urine Bacteria (0-FEW/HPF) /HPF Urine Yeast (0/HPF) /HPF 07/07/17 07/07/17 07/07/17 Range/Units 21:09 21:09 21:22 WBC (5.0-10.0) 10^3/uL RBC (4.6-6.2) 10^6/uL Hgb (14.0-18.0) g/dL Hct (40.0-54.0) % MCV (80-100) fL MCH (27.0-34.0) pg MCHC (33.0-35.0) g/dL Plt Count (150-450) 10^3/uL Neut % (Auto) (42.2-75.2) % Lymph % (Auto) (20.5-50.1) % Moore % (Auto) (2-8) % Eos % (Auto) (1.0-3.0) % Baso % (Auto) (0.0-1.0) % Add Manual Diff Neutrophils % (Manual) (42-75) % Band Neutrophils % % Lymphocytes % (Manual) (20-50) % Monocytes % (Manual) (2-8) % Eosinophils % (Manual) (1-3) % Metamyelocytes % Myelocytes % Toxic Granulation Platelet Estimate Hypochromasia Microcytosis Sodium (135-145) mmol/L Potassium (3.6-5.0) mmol/L Chloride (101-111) mmol/L Carbon Dioxide (21.0-31.0) mmol/L Anion Gap BUN (7-18) mg/dL Creatinine (0.6-1.3) mg/dL Est Cr Clr Drug Dosing mL/min Estimated GFR (MDRD) BUN/Creatinine Ratio Glucose (74-105) mg/dL Lactic Acid (0.5-2.2) mmol/L Calcium (8.4-10.2) mg/dl Total Bilirubin (0.2-1.0) mg/dL AST (10-42) IU/L ALT (10-60) IU/L Alkaline Phosphatase (42-121) IU/L Troponin I (0.00-0.02) ng/ml C-Reactive Protein 3.0 H (0.0-1.3) mg/dL B-Natriuretic Peptide 440 H (0-100) pg/ml Total Protein (6.7-8.2) g/dl Albumin (3.2-5.5) g/dl Globulin Albumin/Globulin Ratio Urine Color Yellow (YELLOW) Urine Appearance Clear (CLEAR) Urine pH 6.0 (5.0-9.0) Ur Specific [place] 1.020 (1.005-1.030) Urine Protein >=300 H (NEGATIVE) Urine Glucose (UA) 250 H (NEGATIVE) Urine Ketones Negative (NEGATIVE) Urine Occult Blood Trace-intact H (NEGATIVE) Urine Nitrite Negative (NEGATIVE) Urine Bilirubin Negative (NEGATIVE) Urine Urobilinogen 0.2 (0.2-1.0) mg/dL Ur Leukocyte Esterase Negative (NEGATIVE) Urine RBC 10-20 H /HPF Urine WBC 0-5 (0-5/HPF) /HPF Ur Epithelial Cells Few /HPF Urine Bacteria Moderate H (0-FEW/HPF) /HPF Urine Yeast Few H (0/HPF) /HPF Meds: Medications Generic Name Dose Route Start Last Admin Trade Name Freq PRN Reason Stop Dose Admin Sodium Chloride 10 ml 07/07/17 20:48 Saline Flush FLUSH ASDIRECTED PRN Keep Vein Open Discontinued Medications Generic Name Dose Route Start Last Admin Trade Name Freq PRN Reason Stop Dose Admin Albuterol/Ipratropium 3 ml 07/07/17 21:28 07/07/17 21:45 Duoneb 3.0-0.5 Mg/3 Ml NEB 07/07/17 21:29 3 ml ONETIME ONE Administration Azithromycin 500 mg 07/07/17 22:15 07/07/17 22:26 Zithromax PO 07/07/17 22:16 500 mg ONETIME ONE Administration Ceftriaxone Sodium 1 gm 07/07/17 22:15 07/07/17 22:26 Rocephin IVPUSH 07/07/17 22:16 1 gm ONETIME ONE Administration - Radiology Interpretation Free Text/Narrative:: Chest x-ray per radiology. Question of new small basilar infiltrate presumptively in the right lung base. Departure - Departure Time of Disposition: 22:27 Disposition: Home, Self-Care 01 Clinical Impression: RLL pneumonia Qualifiers: Pneumonia type: due to unspecified organism Qualified Code(s): J18.1 - Lobar pneumonia, unspecified organism - Discharge Information Instructions: Community-Acquired Pneumonia, Adult, [id number], Fever, Adult, [id number] Forms: ED Department Discharge Additional Instructions: Tylenol as needed for fever. Rest the next few days. Plenty of water. Albuterol nebulizer, 2.5mg every 4 hrs as needed for cough wheezing. 2 sent home from the ED and RX given to the patient. Cefdinir, 1 tablet twice daily for 7 days. RX sent with the patient. Return to the ED if new or worsening symptoms. Follow up with primary care provider in the next 4-6 days if not improving sooner if worse. - My Orders Last 24 Hours: My Active Orders 07/07/17 20:48 EKG 12 Lead [EKG Documentation Completion] [RC] URGENT Peripheral IV Care [RC] . DIRECTED Sodium Chloride 0.9% [Saline Flush] 10 ml FLUSH ASDIRECTED PRN Blood Culture x2 Reflex Set [OM.PC] Stat Peripheral IV Insertion Adult [OM.PC] Stat 07/07/17 21:09 CULTURE BLOOD [BC] Stat 07/07/17 21:13 CULTURE BLOOD [BC] Stat 07/07/17 21:28 RT Aerosol Therapy [RC] ASDIRECTED - Assessment/Plan Last 24 Hours: My Active Orders 07/07/17 20:48 EKG 12 Lead [EKG Documentation Completion] [RC] URGENT Peripheral IV Care [RC] . DIRECTED Sodium Chloride 0.9% [Saline Flush] 10 ml FLUSH ASDIRECTED PRN Blood Culture x2 Reflex Set [OM.PC] Stat Peripheral IV Insertion Adult [OM.PC] Stat 07/07/17 21:09 CULTURE BLOOD [BC] Stat 07/07/17 21:13 CULTURE BLOOD [BC] Stat 07/07/17 21:28 RT Aerosol Therapy [RC] ASDIRECTED Assessment:: RLL pneumonia CRF stable labs. Plan: Tylenol as needed for fever. Rest the next few days. Plenty of water. Albuterol nebulizer, 2.5mg every 4 hrs as needed for cough wheezing. 2 sent home from the ED and RX given to the patient. Cefdinir, 1 tablet twice daily for 7 days. RX sent with the patient. Return to the ED if new or worsening symptoms. Follow up with primary care provider in the next 4-6 days if not improving sooner if worse.
[2017-07-07] MEDS ORDERED: Albuterol/Ipratropium 3.0-0.5 MG/3 ML Neb Soln NEB ONE (21:28)
[2017-07-07 21:46] LABS: ANION GAP 11.8
[2017-07-07] MEDS ORDERED: cefTRIAXone 1 GM Vial IVPUSH ONE (22:15)
[2017-07-07] MEDS ORDERED: Azithromycin 250 MG Tab PO ONE (22:15)
[2017-07-07 22:32] VITALS: BP 155/86
[2017-07-07] MEDS ORDERED: Albuterol 0.083% 2.5 MG/3 ML Neb Soln ONE (22:37)
--- NOTE | 2017-07-09 13:28 | EKG ---
07/07/2017- ADAMA QUINTANILLA - EKG per my reading shows sinus rhythm at the rate of 80s, [facility]. [facility] /[id number]
== END 2017-07-07 23:27 | disposition home or self-care (01) ==
LOC: DL.ED 20:32
DX: J18.9 Pneumonia, unspecified organism (principal); I13.0 Hypertensive heart and chronic kidney disease with heart failure and stage 1 through stage 4 chronic kidney disease, or unspecified chronic kidney disease; I15.0 Renovascular hypertension; N18.9 Chronic kidney disease, unspecified; E11.22 Type 2 diabetes mellitus with diabetic chronic kidney disease; E11.40 Type 2 diabetes mellitus with diabetic neuropathy, unspecified; E78.00 Pure hypercholesterolemia, unspecified; Z79.82 Long term (current) use of aspirin; Z79.899 Other long term (current) drug therapy; Z87.891 Personal history of nicotine dependence
CPT/HCPCS: 36415; 71046; 80053; 81001; 82553; 83605; 83880; 84484; 85025; 86140; 87040; 93005; 94640; 96374; 99284; A9270; J0696; J7050; J7620-GY

== ENCOUNTER 2017-11-14 17:09 | Emergency (ER) | payer BC, OTHER ==
[2017-11-14] MEDS ORDERED: Sodium Chloride 0.9% 10 ML Syringe FLUSH PRN (17:10)
[2017-11-14 17:20] VITALS: BP 161/77
[2017-11-14] MEDS ORDERED: Aspirin 81 MG Tab.Chew PO ONE (17:24)
[2017-11-14] MEDS ORDERED: Aspirin 81 MG Tab.Chew ONE (17:24)
[2017-11-14 17:45] LABS: ANION GAP 15.2; CHLORIDE,CL 108 mmol/L (101-111); SODIUM,NA 139 mmol/L (135-145)
[2017-11-14] MEDS ORDERED: Furosemide 40 MG/4 ML VIAL IVPUSH ONE (18:53)
--- NOTE | 2017-11-18 10:16 | EDM.PDOC ---
Scribed by Rivka Johansen 11/18/17 1016 Isaiah Wooten MD ED HPI GENERAL MEDICAL PROBLEM - General Chief Complaint: Chest Pain Stated Complaint: AMBULANCE- SOB Time Seen by Provider: 11/14/17 17:10 Source of Information: Reports: Patient, EMS, EMS Notes Reviewed, RN, RN Notes Reviewed History Limitations: Reports: No Limitations - History of Present Illness INITIAL COMMENTS - FREE TEXT/NARRATIVE: [facility] a nap around noon with shortness of breath, orthopnea and chest pressure. Patient feels the need to belch to relieve his symptoms. Denies chest pain, fever, chills, nausea, vomiting, palpitations or edema. Denies cough or wheezing. Onset: Today Duration: Getting Worse Location: Reports: Chest Quality: Reports: Ache Severity: Severe Improves with: Reports: None Worsens with: Reports: None Associated Symptoms: Reports: No Other Symptoms - Related Data Allergies Allergy/AdvReac Type Severity Reaction Status Date / Time No Known Allergies Allergy Verified 11/14/17 17:41 Home Meds: Home Meds Hydrocodone/Acetaminophen [Hydrocodone-Acetaminophen 5-325] 1 tab PO TID PRN 03/25 [History] Insulin Detemir [Levemir Flexpen] 30 unit SQ BID 01/19/14 [History] Aspirin [Children's Aspirin] 81 mg PO DAILY 05/15/16 [History] Ezetimibe [Zetia] 10 mg PO DAILY 05/15/16 [History] Gabapentin [Neurontin] 300 mg PO BEDTIME 05/15/16 [History] LORazepam 1 mg PO QID PRN 05/15/16 [History] Loratadine 10 mg PO DAILY 05/15/16 [History] Terazosin HCl [Terazosin] 5 mg PO BEDTIME 05/15/16 [History] Docusate Sodium 100 mg PO BID PRN #60 capsule 12/29/16 [Rx] Isosorbide Mononitrate [Imdur] 120 mg PO BID 05/27/17 [History] Calcitriol [Rocaltrol] 0.25 mcg PO DAILY 06/12/17 [History] Calcium Citrate/Vitamin D3 [Calcium Citrate + D] 2 each PO BID 06/12/17 [History ] Carvedilol 50 mg PO BID 06/12/17 [History] Cyanocobalamin (Vitamin B-12) [Vitamin B-12] 100 mcg PO DAILY 06/12/17 [History] Furosemide 60 mg PO DAILY 06/12/17 [History] Metolazone [Zaroxolyn] 2.5 mg PO .48H 06/12/17 [History] atorvaSTATin [Lipitor] 20 mg PO BEDTIME 06/12/17 [History] hydrALAZINE [Apresoline] 150 mg PO Q8H 06/12/17 [History] Omeprazole 20 mg PO DAILY 06/13/17 [History] Past Medical History HEENT History: Reports: Impaired Vision Other HEENT History: WEARS CORRECTIVE LENSES; UPPER AND LOWER DENTURE PLATE Cardiovascular History: Reports: CAD, Heart Failure, High Cholesterol, Hypertension, Stents Respiratory History: Reports: Pneumonia, Recurrent, SOB, Other (See Below) Other Respiratory History: recent bronchitis Gastrointestinal History: Reports: Chronic Constipation, Colon Polyp, Gastritis , GERD Other Gastrointestinal History: gall stones Genitourinary History: Reports: BPH, Chronic Renal Insuffiency Musculoskeletal History: Reports: Fracture Other Musculoskeletal History: missing tip of pinkie on left hand Neurological History: Reports: Headaches, Chronic, Neuropathy, Diabetic Psychiatric History: Reports: Anxiety Endocrine/Metabolic History: Reports: Diabetes, Type II Hematologic History: Reports: None Immunologic History: Reports: None Oncologic (Cancer) History: Reports: None Dermatologic History: Reports: None - Infectious Disease History Infectious Disease History: Reports: Measles - Past Surgical History Head Surgeries/Procedures: Reports: None Cardiovascular Surgical History: Reports: None, Coronary Artery Stent Respiratory Surgical History: Reports: None GI Surgical History: Reports: Cholecystectomy Male Surgical History: Reports: None Musculoskeletal Surgical History: Reports: None Other Musculoskeletal Surgeries/Procedures:: LEFT ANKLE SURGERY Oncologic Surgical History: Reports: None Dermatological Surgical History: Reports: None Social & Family History - Family History Family Medical History: Noncontributory : Reports: Renal Disease/Insufficiency Neurological: Reports: TIA Endocrine/Metabolic: Reports: Diabetes, type II - Caffeine Use Caffeine Use: Reports: Coffee Caffeine Use Comment: decaf coffee - Living Situation & Occupation Living situation: Reports: with Family, Occupation: Employed ED ROS GENERAL - Review of Systems Review Of Systems: ROS reveals no pertinent complaints other than HPI. ED EXAM, GENERAL - Physical Exam Exam: See Below Exam Limited By: No Limitations General Appearance: Alert, WD/WN, No Apparent Distress, Anxious Eye Exam: Bilateral Eye: EOMI, Normal Inspection Ears: Normal External Exam, Normal Canal, Hearing Grossly Normal, Normal TMs Nose: Normal Inspection, Normal Mucosa, No Blood Throat/Mouth: Normal Inspection, Normal Lips, Normal Teeth, Normal Gums, Normal Oropharynx, Normal Voice, No Airway Compromise Head: Atraumatic, Normocephalic Neck: Normal Inspection, Supple, Non-Tender, Full Range of Motion Respiratory/Chest: No Respiratory Distress, No Accessory Muscle Use, Chest Non- Tender, Decreased Breath Sounds, Rales. No: Rhonchi, Wheezing Cardiovascular: Regular Rate, Rhythm, Bradycardia, Other (tracepedal edema bilaterally.) GI/Abdominal: Normal Bowel Sounds, Soft, Non-Tender, No Organomegaly, No Distention, No Abnormal Bruit, No Mass (Male) Exam: Deferred Rectal (Males) Exam: Deferred Back Exam: Normal Inspection, Full Range of Motion, NT Extremities: Pedal Edema (trace) Neurological: Alert, Oriented, CN II-XII Intact, Normal Cognition, Normal Gait, Normal Reflexes, No Motor/Sensory Deficits Psychiatric: Anxious Skin Exam: Warm, Dry, Intact, Normal Color, No Rash EKG INTERPRETATION EKG Date: 11/14/17 Time: 17:04 Rhythm: Other (sinus bradycardia) Rate (Beats/Min): 50 [place]: LAD-Left [place] Deviation P-Wave: Present QRS: Wide (nonspecific IVCD with LAD.) ST-T: Other (chronically elevated, LVH with repolarization abnormality.) QT: Normal Comparison: Other: (unchanged from EKG dated June 2017) Course - Vital Signs Last Recorded V/S: Last Vital Signs Temp 36.7 C 11/14/17 17:19 Pulse 51 L 11/14/17 17:19 Resp 20 11/14/17 17:19 BP 161/77 H 11/14/17 17:19 Pulse Ox 100 11/14/17 17:19 - Orders/Labs/Meds Labs: Laboratory Tests 11/14/17 11/14/17 11/14/17 Range/Units 17:10 17:11 17:19 WBC 7.8 (5.0-10.0) 10^3/uL RBC 4.03 L (4.6-6.2) 10^6/uL Hgb 10.6 L (14.0-18.0) g/dL Hct 32.5 L (40.0-54.0) % MCV 80.6 (80-100) fL MCH 26.3 L (27.0-34.0) pg MCHC 32.6 L (33.0-35.0) g/dL Plt Count 188 (150-450) 10^3/uL Neut % (Auto) 70.3 (42.2-75.2) % Lymph % (Auto) 20.5 (20.5-50.1) % [place] % (Auto) 6.7 (2-8) % Eos % (Auto) 2.1 (1.0-3.0) % Baso % (Auto) 0.4 (0.0-1.0) % PT (9.0-12.0) SEC INR (0.9-1.2) APTT (22.0-34.0) SEC Sodium (135-145) mmol/L Potassium (3.6-5.0) mmol/L Chloride (101-111) mmol/L Carbon Dioxide (21.0-31.0) mmol/L Anion Gap BUN (7-18) mg/dL Creatinine (0.6-1.3) mg/dL Est Cr Clr Drug Dosing Estimated GFR (MDRD) BUN/Creatinine Ratio Glucose (74-105) mg/dL Calcium (8.4-10.2) mg/dl Total Bilirubin (0.2-1.0) mg/dL AST (10-42) IU/L ALT (10-60) IU/L Alkaline Phosphatase (42-121) IU/L Creatine Kinase (26-174) IU/L Creatine Kinase Index (0-2.4) % CK-MB (CK-2) (0.4-4.7) ng/mL Troponin I (0.00-0.02) ng/ml B-Natriuretic Peptide (0-100) pg/ml Total Protein (6.7-8.2) g/dl Albumin (3.2-5.5) g/dl Globulin Albumin/Globulin Ratio Amylase (28-100) U/L Lipase (22-51) U/L Urine Color Light yellow (YELLOW) Urine Appearance Slightly cloudy (CLEAR) Urine pH 7.0 (5.0-9.0) Ur Specific [place] 1.020 (1.005-1.030) Urine Protein >=300 H (NEGATIVE) Urine Glucose (UA) Negative (NEGATIVE) Urine Ketones Negative (NEGATIVE) Urine Occult Blood Trace-intact H (NEGATIVE) Urine Nitrite Negative (NEGATIVE) Urine Bilirubin Negative (NEGATIVE) Urine Urobilinogen 0.2 (0.2-1.0) mg/dL Ur Leukocyte Esterase Negative (NEGATIVE) Urine RBC 5-10 H /HPF Urine WBC 0-5 (0-5/HPF) /HPF Ur Epithelial Cells Rare /HPF Amorphous Sediment Few (0/HPF) /HPF Urine Bacteria Rare (0-FEW/HPF) /HPF Urine Mucus Few H /LPF Urine Opiates Screen Positive H (NEGATIVE) Ur Oxycodone Screen Negative (NEGATIVE) Urine Methadone Screen Negative (NEGATIVE) Ur Barbiturates Screen Negative (NEGATIVE) U Tricyclic Antidepress Negative (NEGATIVE) Ur Phencyclidine Scrn Negative (NEGATIVE) Ur Amphetamine Screen Negative (NEGATIVE) U Methamphetamines Scrn Negative (NEGATIVE) Urine MDMA Screen Negative (NEGATIVE) U Benzodiazepines Scrn Positive H (NEGATIVE) Urine Cocaine Screen Negative (NEGATIVE) U Marijuana (THC) Screen Negative (NEGATIVE) Ethyl Alcohol mg/dL 11/14/17 11/14/17 11/14/17 Range/Units 17:19 17:19 17:19 WBC (5.0-10.0) 10^3/uL RBC (4.6-6.2) 10^6/uL Hgb (14.0-18.0) g/dL Hct (40.0-54.0) % MCV (80-100) fL MCH (27.0-34.0) pg MCHC (33.0-35.0) g/dL Plt Count (150-450) 10^3/uL Neut % (Auto) (42.2-75.2) % Lymph % (Auto) (20.5-50.1) % [place] % (Auto) (2-8) % Eos % (Auto) (1.0-3.0) % Baso % (Auto) (0.0-1.0) % PT 9.7 (9.0-12.0) SEC INR 1.0 (0.9-1.2) APTT 28.1 (22.0-34.0) SEC Sodium 139 (135-145) mmol/L Potassium 4.2 (3.6-5.0) mmol/L Chloride 108 (101-111) mmol/L Carbon Dioxide 20.0 L (21.0-31.0) mmol/L Anion Gap 15.2 BUN 80 H D (7-18) mg/dL Creatinine 4.8 H D (0.6-1.3) mg/dL Est Cr Clr Drug Dosing TNP Estimated GFR (MDRD) 12 BUN/Creatinine Ratio 16.66 Glucose 114 H (74-105) mg/dL Calcium 9.7 (8.4-10.2) mg/dl Total Bilirubin 0.5 (0.2-1.0) mg/dL AST 20 (10-42) IU/L ALT 15 (10-60) IU/L Alkaline Phosphatase 76 (42-121) IU/L Creatine Kinase 89 (26-174) IU/L Creatine Kinase Index 2.4 (0-2.4) % CK-MB (CK-2) 2.10 (0.4-4.7) ng/mL Troponin I < 0.02 (0.00-0.02) ng/ml B-Natriuretic Peptide 280 H (0-100) pg/ml Total Protein 7.1 (6.7-8.2) g/dl Albumin 3.8 (3.2-5.5) g/dl Globulin 3.3 Albumin/Globulin Ratio 1.15 Amylase 50 (28-100) U/L Lipase 23 (22-51) U/L Urine Color (YELLOW) Urine Appearance (CLEAR) Urine pH (5.0-9.0) Ur Specific [place] (1.005-1.030) Urine Protein (NEGATIVE) Urine Glucose (UA) (NEGATIVE) Urine Ketones (NEGATIVE) Urine Occult Blood (NEGATIVE) Urine Nitrite (NEGATIVE) Urine Bilirubin (NEGATIVE) Urine Urobilinogen (0.2-1.0) mg/dL Ur Leukocyte Esterase (NEGATIVE) Urine RBC /HPF Urine WBC (0-5/HPF) /HPF Ur Epithelial Cells /HPF Amorphous Sediment (0/HPF) /HPF Urine Bacteria (0-FEW/HPF) /HPF Urine Mucus /LPF Urine Opiates Screen (NEGATIVE) Ur Oxycodone Screen (NEGATIVE) Urine Methadone Screen (NEGATIVE) Ur Barbiturates Screen (NEGATIVE) U Tricyclic Antidepress (NEGATIVE) Ur Phencyclidine Scrn (NEGATIVE) Ur Amphetamine Screen (NEGATIVE) U Methamphetamines Scrn (NEGATIVE) Urine MDMA Screen (NEGATIVE) U Benzodiazepines Scrn (NEGATIVE) Urine Cocaine Screen (NEGATIVE) U Marijuana (THC) Screen (NEGATIVE) Ethyl Alcohol < 5 mg/dL Meds: Medications Discontinued Medications Generic Name Dose Route Start Last Admin Trade Name Freq PRN Reason Stop Dose Admin Aspirin 324 mg 11/14/17 17:24 11/14/17 17:25 Aspirin PO 11/14/17 17:25 324 mg ONETIME ONE Administration Aspirin Confirm 11/14/17 17:24 11/14/17 17:30 Aspirin Administered 11/14/17 17:25 Not Given Dose 324 mg .ROUTE .STK-MED ONE Furosemide 40 mg 11/14/17 18:53 11/14/17 18:59 Lasix IVPUSH 11/14/17 18:54 40 mg NOW ONE Administration Sodium Chloride 10 ml 11/14/17 17:10 11/14/17 17:20 Saline Flush FLUSH 10 ml ASDIRECTED PRN Administration Keep Vein Open - Radiology Interpretation Free Text/Narrative:: Chest x-ray: Normal chest x-ray. See rad report. Departure - Departure Time of Disposition: 18:45 Disposition: DC/Tfer to [facility] Reason for Transfer *Q: Primary PCI Indicated Condition: Serious Clinical Impression: Acute on chronic renal failure Qualifiers: Acute renal failure type: unspecified Chronic kidney disease stage: unspecified stage Qualified Code(s): N17.9 - Acute kidney failure, unspecified; N18.9 - Chronic kidney disease, unspecified Dyspnea Qualifiers: Dyspnea type: shortness of breath Qualified Code(s): R06.02 - Shortness of breath; R06.00 - Dyspnea, unspecified; R06.01 - Orthopnea CHF (congestive heart failure) Qualifiers: Heart failure type: unspecified Heart failure chronicity: acute on chronic Qualified Code(s): I50.9 - Heart failure, unspecified Chronic kidney disease Qualifiers: Chronic kidney disease stage: unspecified stage Qualified Code(s): N18.9 - Chronic kidney disease, unspecified Referrals: PCP,None [Primary Care Provider] - Forms: ED Department Discharge, Interfacility Transfer EMTALA I have read and agree with the documentation that has been completed regarding this visit. By signing this record, I attest that the documentation was completed in my physical presence and is an accurate record of the encounter.
--- NOTE | 2017-11-18 12:04 | EKG ---
11/14/2017- ADAMA QUINTANILLA AMADO - FINDINGS: EKG shows a sinus bradycardia, heart rate of 50 beats per minute, left ventricular hypertrophy. [facility] /[id number]
== END 2017-11-14 19:35 ==
LOC: DL.ED 17:09
DX: I13.0 Hypertensive heart and chronic kidney disease with heart failure and stage 1 through stage 4 chronic kidney disease, or unspecified chronic kidney disease (principal); I50.9 Heart failure, unspecified; N17.9 Acute kidney failure, unspecified; N18.9 Chronic kidney disease, unspecified; E11.22 Type 2 diabetes mellitus with diabetic chronic kidney disease; Z79.4 Long term (current) use of insulin; Z79.82 Long term (current) use of aspirin; Z79.899 Other long term (current) drug therapy
CPT/HCPCS: 36415; 71045; 80053; 80305; 81001; 82150; 82550; 82553; 83690; 83880; 84484; 85025; 85610; 85730; 93005; 93010; 96374; 99285; G0480; J1940; J7050; 99284; A9270-GY

== ENCOUNTER 2018-02-10 17:15 | Emergency (ER) | payer BC, OTHER ==
[2018-02-10] MEDS ORDERED: Sodium Chloride 0.9% 10 ML Syringe FLUSH PRN (18:02)
[2018-02-10] MEDS ORDERED: HYDROmorphone 1 MG/ML Syringe IVPUSH ONE (18:03)
[2018-02-10] MEDS ORDERED: Ondansetron 4 MG/2 ML SDV IV ONE (18:03)
[2018-02-10] MEDS ORDERED: HYDROmorphone 0.5 MG/0.5 ML Syringe ONE (18:29)
[2018-02-10] MEDS ORDERED: HYDROmorphone 0.5 MG/0.5 ML Syringe IVPUSH ONE (18:32)
[2018-02-10 18:50] LABS: ANION GAP 16.5
[2018-02-10 19:40] VITALS: BP 117/85
--- NOTE | 2018-02-11 05:29 | EDM.PDOC ---
Scribed by Rivka Johansen 02/10/18 2019 for Roxanna Moses NP ED HPI GENERAL MEDICAL PROBLEM - General Chief Complaint: Neck Problem Stated Complaint: PAIN IN NECK [id number] Time Seen by Provider: 02/10/18 17:32 Source of Information: Reports: Patient, RN, RN Notes Reviewed History Limitations: Reports: No Limitations - History of Present Illness INITIAL COMMENTS - FREE TEXT/NARRATIVE: Pt to ER with family with c/o stiff, sore neck which began yesterday, worse today. Sharp pain in the abdomen as well along with increased weakness and malaise. Pt states his fingers are numb, which also began yesterday. Denies numbness or tingling to the arms. Admits to chills and nausea, denies fever, vomiting, and diarrhea. Pt is on Peritoneal dialysis. Onset: Today, Gradual Neck Pain Score (Numeric/FACES): 5 - Related Data Allergies Allergy/AdvReac Type Severity Reaction Status Date / Time No Known Allergies Allergy Verified 02/10/18 17:20 Home Meds: Home Meds Hydrocodone/Acetaminophen [Hydrocodone-Acetaminophen 5-325] 1 tab PO TID PRN 03/25 [History] Insulin Detemir [Levemir Flexpen] 30 unit SQ BID 01/19/14 [History] Aspirin [Children's Aspirin] 81 mg PO DAILY 05/15/16 [History] Ezetimibe [Zetia] 10 mg PO DAILY 05/15/16 [History] Gabapentin [Neurontin] 300 mg PO BEDTIME 05/15/16 [History] LORazepam 1 mg PO QID PRN 05/15/16 [History] Loratadine 10 mg PO DAILY 05/15/16 [History] Terazosin HCl [Terazosin] 5 mg PO BEDTIME 05/15/16 [History] Docusate Sodium 100 mg PO BID PRN #60 capsule 12/29/16 [Rx] Isosorbide Mononitrate [Imdur] 120 mg PO BID 05/27/17 [History] Calcitriol [Rocaltrol] 0.25 mcg PO DAILY 06/12/17 [History] Calcium Citrate/Vitamin D3 [Calcium Citrate + D] 2 each PO BID 06/12/17 [History ] Carvedilol 50 mg PO BID 06/12/17 [History] Cyanocobalamin (Vitamin B-12) [Vitamin B-12] 100 mcg PO DAILY 06/12/17 [History] Furosemide 60 mg PO DAILY 06/12/17 [History] atorvaSTATin [Lipitor] 20 mg PO BEDTIME 06/12/17 [History] hydrALAZINE [Apresoline] 150 mg PO Q8H 06/12/17 [History] metOLazone [Zaroxolyn] 2.5 mg PO .48H 06/12/17 [History] Omeprazole 20 mg PO DAILY 06/13/17 [History] Past Medical History HEENT History: Reports: Impaired Vision Other HEENT History: WEARS CORRECTIVE LENSES; UPPER AND LOWER DENTURE PLATE Cardiovascular History: Reports: CAD, Heart Failure, High Cholesterol, Hypertension, Stents Respiratory History: Reports: Pneumonia, Recurrent, SOB, Other (See Below) Other Respiratory History: recent bronchitis Gastrointestinal History: Reports: Chronic Constipation, Colon Polyp, Gastritis , GERD Other Gastrointestinal History: gall stones Genitourinary History: Reports: BPH, Chronic Renal Insuffiency Musculoskeletal History: Reports: Fracture Other Musculoskeletal History: missing tip of pinkie on left hand Neurological History: Reports: Headaches, Chronic, Neuropathy, Diabetic Psychiatric History: Reports: Anxiety Endocrine/Metabolic History: Reports: Diabetes, Type II Hematologic History: Reports: None Immunologic History: Reports: None Oncologic (Cancer) History: Reports: None Dermatologic History: Reports: None - Infectious Disease History Infectious Disease History: Reports: Measles - Past Surgical History Head Surgeries/Procedures: Reports: None Cardiovascular Surgical History: Reports: None, Coronary Artery Stent Respiratory Surgical History: Reports: None GI Surgical History: Reports: Cholecystectomy Male Surgical History: Reports: None Musculoskeletal Surgical History: Reports: None Other Musculoskeletal Surgeries/Procedures:: LEFT ANKLE SURGERY Oncologic Surgical History: Reports: None Dermatological Surgical History: Reports: None Social & Family History - Family History Family Medical History: Noncontributory : Reports: Renal Disease/Insufficiency Neurological: Reports: TIA Endocrine/Metabolic: Reports: Diabetes, type II - Tobacco Use Smoking Status *Q: Unknown Ever Smoked - Caffeine Use Caffeine Use: Reports: Coffee Caffeine Use Comment: decaf coffee - Recreational Drug Use Recreational Drug Use: No - Living Situation & Occupation Living situation: Reports: with Family, Occupation: Employed ED ROS GENERAL - Review of Systems Review Of Systems: ROS reveals no pertinent complaints other than HPI. ED EXAM, UPPER BACK/NECK PAIN - Physical Exam Exam: See Below Exam Limited By: No Limitations General Appearance: Alert, WD/WN, Mild Distress Eye Exam: Bilateral Eye: EOMI, Normal Inspection Ears Exam: Normal External Exam, Hearing Grossly Normal Nose Exam: Normal Inspection Throat/Mouth Exam: Normal Inspection, Normal Voice, No Airway Compromise Head Exam: Atraumatic, Normocephalic Neck Exam: Normal Alignment, Normal Inspection, Limited Range of Motion, Stiff Neck, Tender Lateral Nexus Criteria: No: Posterior, Midline Cervical Tenderness, Evidence of Intoxication, Altered Level of Consciousness, Focal Neurological Deficit, Painful Distraction Injuries Cardiovascular/Respiratory: Regular Rate, Rhythm, No M/R/G, Normal Peripheral Pulses, No JVD, Normal Breath Sounds, No Respiratory Distress GI/Abdominal: Normal Bowel Sounds, Soft, Tender (diffuse) (Male) Exam: Deferred Rectal (Males) Exam: Deferred Back Exam: Normal Inspection, Full Range of Motion Extremities: Normal Inspection, Normal Range of Motion, Non-Tender, No Pedal Edema, Normal Capillary Refill 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 DIRECTED Care 02/10/18 18:03 Active CULTURE BLOOD [BC] Stat Lab 02/10/18 18:16 Received CULTURE BLOOD [BC] Stat Lab 02/10/18 18:20 Received Blood Culture x2 Reflex Set [OM.PC] Stat Oth 02/10/18 18:02 Ordered Peripheral IV Insertion Adult [OM.PC] Stat Oth 02/10/18 18:02 Ordered Labs: Laboratory Tests 02/10/18 02/10/18 02/10/18 Range/Units 18:16 18:16 18:16 WBC 8.5 (5.0-10.0) 10^3/uL RBC 4.00 L (4.6-6.2) 10^6/uL Hgb 10.9 L (14.0-18.0) g/dL Hct 33.6 L (40.0-54.0) % MCV 84.0 D (80-100) fL MCH 27.3 (27.0-34.0) pg MCHC 32.4 L (33.0-35.0) g/dL Plt Count 149 L (150-450) 10^3/uL Neut % (Auto) 76.0 H (42.2-75.2) % Lymph % (Auto) 17.3 L (20.5-50.1) % Power % (Auto) 4.8 (2-8) % Eos % (Auto) 1.8 (1.0-3.0) % Baso % (Auto) 0.1 (0.0-1.0) % Sodium 137 (135-145) mmol/L Potassium 3.5 L (3.6-5.0) mmol/L Chloride 98 L (101-111) mmol/L Carbon Dioxide 26.0 (21.0-31.0) mmol/L Anion Gap 16.5 BUN 57 H (7-18) mg/dL Creatinine 6.4 H D (0.6-1.3) mg/dL Est Cr Clr Drug Dosing 12.75 mL/min Estimated GFR (MDRD) 9 BUN/Creatinine Ratio 8.90 Glucose 254 H (74-105) mg/dL Lactic Acid 1.3 (0.5-2.2) mmol/L Calcium 8.9 (8.4-10.2) mg/dl Total Bilirubin 0.6 (0.2-1.0) mg/dL AST 23 (10-42) IU/L ALT 17 (10-60) IU/L Alkaline Phosphatase 78 (42-121) IU/L Total Protein 6.9 (6.7-8.2) g/dl Albumin 3.6 (3.2-5.5) g/dl Globulin 3.3 Albumin/Globulin Ratio 1.09 Amylase 49 (28-100) U/L Lipase 23 (22-51) U/L Urine Color (YELLOW) Urine Appearance (CLEAR) Urine pH (5.0-9.0) Ur Specific [place] (1.005-1.030) Urine Protein (NEGATIVE) Urine Glucose (UA) (NEGATIVE) Urine Ketones (NEGATIVE) Urine Occult Blood (NEGATIVE) Urine Nitrite (NEGATIVE) Urine Bilirubin (NEGATIVE) Urine Urobilinogen (0.2-1.0) mg/dL Ur Leukocyte Esterase (NEGATIVE) Urine RBC /HPF Urine WBC (0-5/HPF) /HPF Ur Epithelial Cells /HPF Urine Bacteria (0-FEW/HPF) /HPF Urine Mucus /LPF 02/10/18 Range/Units 19:53 WBC (5.0-10.0) 10^3/uL RBC (4.6-6.2) 10^6/uL Hgb (14.0-18.0) g/dL Hct (40.0-54.0) % MCV (80-100) fL MCH (27.0-34.0) pg MCHC (33.0-35.0) g/dL Plt Count (150-450) 10^3/uL Neut % (Auto) (42.2-75.2) % Lymph % (Auto) (20.5-50.1) % Power % (Auto) (2-8) % Eos % (Auto) (1.0-3.0) % Baso % (Auto) (0.0-1.0) % Sodium (135-145) mmol/L Potassium (3.6-5.0) mmol/L Chloride (101-111) mmol/L Carbon Dioxide (21.0-31.0) mmol/L Anion Gap BUN (7-18) mg/dL Creatinine (0.6-1.3) mg/dL Est Cr Clr Drug Dosing mL/min Estimated GFR (MDRD) BUN/Creatinine Ratio Glucose (74-105) mg/dL Lactic Acid (0.5-2.2) mmol/L Calcium (8.4-10.2) mg/dl Total Bilirubin (0.2-1.0) mg/dL AST (10-42) IU/L ALT (10-60) IU/L Alkaline Phosphatase (42-121) IU/L Total Protein (6.7-8.2) g/dl Albumin (3.2-5.5) g/dl Globulin Albumin/Globulin Ratio Amylase (28-100) U/L Lipase (22-51) U/L Urine Color Yellow (YELLOW) Urine Appearance Clear (CLEAR) Urine pH 6.5 (5.0-9.0) Ur Specific [place] 1.025 (1.005-1.030) Urine Protein >=300 H (NEGATIVE) Urine Glucose (UA) 250 H (NEGATIVE) Urine Ketones Negative (NEGATIVE) Urine Occult Blood Trace-intact H (NEGATIVE) Urine Nitrite Negative (NEGATIVE) Urine Bilirubin Negative (NEGATIVE) Urine Urobilinogen 0.2 (0.2-1.0) mg/dL Ur Leukocyte Esterase Negative (NEGATIVE) Urine RBC 0-5 /HPF Urine WBC 0-5 (0-5/HPF) /HPF Ur Epithelial Cells Rare /HPF Urine Bacteria Few (0-FEW/HPF) /HPF Urine Mucus Few H /LPF Meds: Medications Discontinued Medications Generic Name Dose Route Start Last Admin Trade Name Freq PRN Reason Stop Dose Admin Hydromorphone HCl 1 mg 02/10/18 18:03 02/10/18 18:33 Dilaudid IVPUSH 02/10/18 18:04 Not Given ONETIME ONE Hydromorphone HCl 1 mg 02/10/18 18:32 02/10/18 18:36 Dilaudid IVPUSH 02/10/18 18:33 1 mg ONETIME ONE Administration Hydromorphone HCl Confirm 02/10/18 18:29 02/10/18 18:36 Dilaudid Administered 02/10/18 18:30 Not Given Dose 1 mg .ROUTE .STK-MED ONE Ondansetron HCl 4 mg 02/10/18 18:03 02/10/18 18:35 Zofran IV 02/10/18 18:04 4 mg ONETIME ONE Administration Orphenadrine Citrate 60 mg 02/10/18 20:30 02/10/18 20:41 Norflex IM 60 mg Q12H ELVI Administration Sodium Chloride 10 ml 02/10/18 18:02 02/10/18 18:35 Saline Flush FLUSH 10 ml ASDIRECTED PRN Administration Keep Vein Open - Radiology Interpretation Free Text/Narrative:: CT Abdomen/Pelvis w/o: IMPRESSION: 1. Peritoneal dialysis catheter in place. There is a small amount of dialysis fluid adjacent to the liver. 2. Benign appearing 16mm left adrenal mass. 3. The appendix is mildly enlarged but unchanged. There is no acute inflammatory change near the appendix. 4. Degenerative changes of the lumbar spine and other acute findings as described above. 5. No acute abnormality in the abdomen or pelvis. COMMENT: Consistent with the [employer]'s Incidental Findings Committee Report ([employer]iol 2010): Unless the patient's specific circumstances suggest otherwise , any liver lesion 0.5 cm or less, any cystic kidney lesion less than 1.0 cm, and/or any adrenal lesion 1.0 cm or less not otherwise characterized in this report as possessing suspicious or indeterminate imaging features is/are highly likely to be benign and do not require follow-up imaging or biopsy. Thank you for allowing us to participate in the care of your patient. Dictated and Authenticated by: Evan Garza DO 02/10/2018 8:14 PM Central Time ([place] & [place]) See rad report Departure - Departure Time of Disposition: 20:26 Disposition: Home, Self-Care 01 Condition: Fair Clinical Impression: Cervical radiculopathy - Discharge Information *PRESCRIPTION DRUG MONITORING PROGRAM REVIEWED*: No *COPY OF PRESCRIPTION DRUG MONITORING REPORT IN PATIENT MELISSA: No Instructions: Cervical Sprain, [id number], Cervical Radiculopathy, Easy-to- Read Forms: ED Department Discharge Additional Instructions: Follow up with your primary care facility RX: Norflex Heat the neck as tolerated I have read and agree with the documentation that has been completed regarding this visit. By signing this record, I attest that the documentation was completed in my physical presence and is an accurate record of the encounter.
== END 2018-02-10 20:44 | disposition home or self-care (01) ==
LOC: DL.ED 17:15
DX: M54.12 Radiculopathy, cervical region (principal); I13.0 Hypertensive heart and chronic kidney disease with heart failure and stage 1 through stage 4 chronic kidney disease, or unspecified chronic kidney disease; I50.9 Heart failure, unspecified; N18.9 Chronic kidney disease, unspecified; E11.40 Type 2 diabetes mellitus with diabetic neuropathy, unspecified; E11.22 Type 2 diabetes mellitus with diabetic chronic kidney disease; Z79.899 Other long term (current) drug therapy; Z79.82 Long term (current) use of aspirin; Z79.4 Long term (current) use of insulin; Z99.2 Dependence on renal dialysis
CPT/HCPCS: 36415; 74176; 80053; 81001; 82150; 83605; 83690; 85025; 87040; 96372; 96374; 96375; 99283; 99284; J1170; J2360; J2405; J7050

== ENCOUNTER 2018-06-22 09:13 | Inpatient (IN) | payer MEDICARE, OTHER ==
--- NOTE | 2018-06-22 09:21 | EDM.PDOC ---
<Liat Hanson R - Last Filed: 06/22/18 09:59> ED HPI GENERAL MEDICAL PROBLEM - General Chief Complaint: General Stated Complaint: sl ambulance/unknown Time Seen by Provider: 06/22/18 09:20 Source of Information: Reports: Patient, EMS, Old Records, RN History Limitations: Reports: No Limitations - History of Present Illness INITIAL COMMENTS - FREE TEXT/NARRATIVE: Maxi states he has had weakness, nausea, and vomiting since yesterday. He fell last evening when he tripped on his peritoneal dialysis tubing. He landed on his left arm on the floor. His weakness has increased since last evening. He states he is unable to walk. He states having a fever and chills since yesterday. He states having a non-productive cough and SOB but unchanged from his baseline. He states he has done peritoneal dialysis since December of this year and was switch to dialysis every other day from daily. Onset: Other (yesteray) Onset Date: 06/21/18 - Related Data Allergies Allergy/AdvReac Type Severity Reaction Status Date / Time No Known Allergies Allergy Verified 05/11/18 12:40 Home Meds: Home Meds Hydrocodone/Acetaminophen [Hydrocodone-Acetaminophen 5-325] 1 tab PO TID PRN 03/25 [History] Insulin Detemir [Levemir Flexpen] 30 unit SQ BID 01/19/14 [History] Aspirin [Children's Aspirin] 81 mg PO DAILY 05/15/16 [History] Ezetimibe [Zetia] 10 mg PO DAILY 05/15/16 [History] Gabapentin [Neurontin] 300 mg PO BEDTIME 05/15/16 [History] LORazepam 1 mg PO QID PRN 05/15/16 [History] Loratadine 10 mg PO DAILY 05/15/16 [History] Terazosin HCl [Terazosin] 5 mg PO BEDTIME 05/15/16 [History] Docusate Sodium 100 mg PO BID PRN #60 capsule 12/29/16 [Rx] Isosorbide Mononitrate [Imdur] 120 mg PO BID 05/27/17 [History] Calcitriol [Rocaltrol] 0.25 mcg PO DAILY 06/12/17 [History] Calcium Citrate/Vitamin D3 [Calcium Citrate + D] 2 each PO BID 06/12/17 [History ] Carvedilol 50 mg PO BID 06/12/17 [History] Cyanocobalamin (Vitamin B-12) [Vitamin B-12] 100 mcg PO DAILY 06/12/17 [History] Furosemide 60 mg PO DAILY 06/12/17 [History] atorvaSTATin [Lipitor] 20 mg PO BEDTIME 06/12/17 [History] hydrALAZINE [Apresoline] 150 mg PO Q8H 06/12/17 [History] metOLazone [Zaroxolyn] 2.5 mg PO .48H 06/12/17 [History] Omeprazole 20 mg PO DAILY 06/13/17 [History] Past Medical History HEENT History: Reports: Impaired Vision Other HEENT History: WEARS CORRECTIVE LENSES; UPPER AND LOWER DENTURE PLATE Cardiovascular History: Reports: CAD, Heart Failure, High Cholesterol, Hypertension, Stents Respiratory History: Reports: Pneumonia, Recurrent, SOB, Other (See Below) Other Respiratory History: recent bronchitis Gastrointestinal History: Reports: Chronic Constipation, Colon Polyp, Gastritis , GERD Other Gastrointestinal History: gall stones Genitourinary History: Reports: BPH, Chronic Renal Insuffiency, Dialysis, Peritoneal Musculoskeletal History: Reports: Fracture Other Musculoskeletal History: missing tip of pinkie on left hand Neurological History: Reports: Headaches, Chronic, Neuropathy, Diabetic Psychiatric History: Reports: Anxiety Endocrine/Metabolic History: Reports: Diabetes, Type II Hematologic History: Reports: None Immunologic History: Reports: None Oncologic (Cancer) History: Reports: None Dermatologic History: Reports: None - Infectious Disease History Infectious Disease History: Reports: Measles - Past Surgical History Head Surgeries/Procedures: Reports: None Cardiovascular Surgical History: Reports: None, Coronary Artery Stent Respiratory Surgical History: Reports: None GI Surgical History: Reports: Cholecystectomy Male Surgical History: Reports: None Musculoskeletal Surgical History: Reports: None Other Musculoskeletal Surgeries/Procedures:: LEFT ANKLE SURGERY Oncologic Surgical History: Reports: None Dermatological Surgical History: Reports: None Social & Family History - Family History Family Medical History: Noncontributory : Reports: Renal Disease/Insufficiency Neurological: Reports: TIA Endocrine/Metabolic: Reports: Diabetes, type II - Caffeine Use Caffeine Use: Reports: Coffee Caffeine Use Comment: decaf coffee - Living Situation & Occupation Living situation: Reports: with Family, Occupation: Employed ED EXAM, DIZZINESS - Physical Exam Exam: See Below Exam Limited By: No Limitations Eye Exam: Bilateral Eye: Normal Inspection, Periorbital Changes Ears: Normal External Exam, Normal Canal, Hearing Grossly Normal, Normal TMs Nose: Normal Inspection, Normal Mucosa, No Blood Throat/Mouth: Normal Inspection, Normal Lips, Normal Teeth, Normal Gums, Normal Oropharynx, Normal Voice, No Airway Compromise, Other (dry mucous membrane) Head Exam: Atraumatic, Normocephalic Neck: Normal Inspection, Supple, Non-Tender, Full Range of Motion Respiratory/Chest: No Respiratory Distress, No Accessory Muscle Use, Chest Non- Tender, Decreased Breath Sounds Cardiovascular: Normal Peripheral Pulses, Regular Rate, Rhythm, No Edema, No Gallop, No JVD, No Murmur, No Rub GI/Abdominal: Normal Bowel Sounds, Soft, Non-Tender, No Organomegaly, No Abnormal Bruit, No Mass, Distended, Other (peritineal dialysis tubing) Neurological: Alert, Normal Mood/Affect, No Motor/Sensory Deficits, Oriented x 3 , Difficulty Walking, Other (weakness, dizziness) Back Exam: Normal Inspection, Full Range of Motion Extremities: Normal Inspection, Normal Range of Motion, Non-Tender, Pedal Edema Psychiatric: Normal Affect, Normal Mood Skin Exam: Warm, Dry, Intact, Normal Color, No Rash, Increased Warmth Course - Vital Signs Last Recorded V/S: Last Vital Signs Temp 39.3 C H 06/22/18 09:24 Pulse 75 06/22/18 09:24 Resp 18 06/22/18 09:24 BP 146/52 H 06/22/18 09:24 Pulse Ox 94 L 06/22/18 09:24 - Orders/Labs/Meds Orders: Active Orders 24 hr Category Date Time Status Peripheral IV Care [RC] . DIRECTED Care 06/22/18 09:27 Active CULTURE BLOOD [BC] Stat Lab 06/22/18 09:49 Received CULTURE BLOOD [] Stat Lab 06/22/18 09:54 Received CULTURE STREP A CONFIRMATION [] Stat Lab 06/22/18 09:58 Results STREP SCRN A RAPID W CULT CONF [] Stat Lab 06/22/18 09:58 Results UA RFX PATTY AND CULT IF INDIC [URIN] Stat Lab 06/22/18 09:27 Ordered Piperacillin/Tazobactam [Zosyn] 3.375 gm Med 06/22/18 10:22 Active Sodium Chloride 0.9% [Normal Saline] 100 ml IV ONETIME Sodium Chloride 0.9% [Saline Flush] Med 06/22/18 09:27 Active 10 ml FLUSH ASDIRECTED PRN Blood Culture x2 Reflex Set [OM.PC] Stat Oth 06/22/18 09:27 Ordered Peripheral IV Insertion Adult [OM.PC] Stat Oth 06/22/18 09:27 Ordered Medication Orders Piperacillin Sod/Tazobactam (Sod 3.375 gm/ Sodium Chloride) 100 mls @ 200 mls/ hr IV ONETIME ONE Stop: 06/22/18 10:51 Sodium Chloride (Saline Flush) 10 ml FLUSH ASDIRECTED PRN PRN Reason: Keep Vein Open Last Admin: 06/22/18 09:57 Dose: 10 ml Labs: Laboratory Tests 06/22/18 06/22/18 06/22/18 Range/Units 09:54 09:54 09:54 WBC 10.2 H (5.0-10.0) 10^3/uL RBC 3.85 L (4.6-6.2) 10^6/uL Hgb 10.8 L (14.0-18.0) g/dL Hct 32.7 L (40.0-54.0) % MCV 84.9 (80-100) fL MCH 28.1 (27.0-34.0) pg MCHC 33.0 (33.0-35.0) g/dL Plt Count 129 L (150-450) 10^3/uL Neut % (Auto) 83.6 H (42.2-75.2) % Lymph % (Auto) 8.3 L (20.5-50.1) % [place] % (Auto) 7.4 (2-8) % Eos % (Auto) 0.6 L (1.0-3.0) % Baso % (Auto) 0.1 (0.0-1.0) % Sodium 134 L (135-145) mmol/L Potassium 3.8 (3.6-5.0) mmol/L Chloride 100 L (101-111) mmol/L Carbon Dioxide 21.0 (21.0-31.0) mmol/L Anion Gap 16.8 BUN 50 H (7-18) mg/dL Creatinine 5.3 H (0.6-1.3) mg/dL Est Cr Clr Drug Dosing 15.19 mL/min Estimated GFR (MDRD) 11 BUN/Creatinine Ratio 9.43 Glucose 199 H (74-105) mg/dL Lactic Acid 1.3 (0.5-2.2) mmol/L Calcium 8.9 (8.4-10.2) mg/dl Total Bilirubin 1.1 H (0.2-1.0) mg/dL AST 39 (10-42) IU/L ALT 27 (10-60) IU/L Alkaline Phosphatase 78 (42-121) IU/L Total Protein 6.8 (6.7-8.2) g/dl Albumin 3.4 (3.2-5.5) g/dl Globulin 3.4 Albumin/Globulin Ratio 1.00 Amylase 33 (28-100) U/L Lipase 19 L (22-51) U/L Meds: Medications Generic Name Dose Route Start Last Admin Trade Name Freq PRN Reason Stop Dose Admin Piperacillin Sod/Tazobactam 100 mls @ 200 mls/hr 06/22/18 10:22 Sod 3.375 gm/ Sodium Chloride IV 06/22/18 10:51 ONETIME ONE Sodium Chloride 10 ml 06/22/18 09:27 06/22/18 09:57 Saline Flush FLUSH 10 ml ASDIRECTED PRN Administration Keep Vein Open Discontinued Medications Generic Name Dose Route Start Last Admin Trade Name Freq PRN Reason Stop Dose Admin Ondansetron HCl 4 mg 06/22/18 10:22 Zofran IV 06/22/18 10:23 ONETIME ONE Departure - Departure Disposition: Admitted As Inpatient 66 Clinical Impression: ESRD on peritoneal dialysis Pneumonia Qualifiers: Pneumonia type: due to unspecified organism Laterality: right Lung location: lower lobe of lung Qualified Code(s): J18.1 - Lobar pneumonia, unspecified organism Diabetes mellitus type 2 with complications Qualifiers: Diabetes mellitus skilled nursing insulin use: with long term care social worker use Qualified Code(s): E11.8 - Type 2 diabetes mellitus with unspecified complications - Discharge Information Forms: ED Department Discharge - My Orders Last 24 Hours: My Active Orders 06/22/18 09:27 Peripheral IV Care [RC] . DIRECTED UA RFX PATTY AND CULT IF INDIC [URIN] Stat Sodium Chloride 0.9% [Saline Flush] 10 ml FLUSH ASDIRECTED PRN Blood Culture x2 Reflex Set [OM.PC] Stat Peripheral IV Insertion Adult [OM.PC] Stat 06/22/18 09:49 CULTURE BLOOD [BC] Stat 06/22/18 09:54 CULTURE BLOOD [BC] Stat 06/22/18 09:58 CULTURE STREP A CONFIRMATION [RM] Stat STREP SCRN A RAPID W CULT CONF [RM] Stat 06/22/18 10:22 Piperacillin/Tazobactam [Zosyn] 3.375 gm Sodium Chloride 0.9% [Normal Saline] 100 ml IV ONETIME - Assessment/Plan Last 24 Hours: My Active Orders 06/22/18 09:27 Peripheral IV Care [RC] . DIRECTED UA RFX PATTY AND CULT IF INDIC [URIN] Stat Sodium Chloride 0.9% [Saline Flush] 10 ml FLUSH ASDIRECTED PRN Blood Culture x2 Reflex Set [OM.PC] Stat Peripheral IV Insertion Adult [OM.PC] Stat 06/22/18 09:49 CULTURE BLOOD [BC] Stat 06/22/18 09:54 CULTURE BLOOD [BC] Stat 06/22/18 09:58 CULTURE STREP A CONFIRMATION [RM] Stat STREP SCRN A RAPID W CULT CONF [RM] Stat 06/22/18 10:22 Piperacillin/Tazobactam [Zosyn] 3.375 gm Sodium Chloride 0.9% [Normal Saline] 100 ml IV ONETIME <Isaiah Lundberg - Last Filed: 06/22/18 10:52> ED HPI GENERAL MEDICAL PROBLEM - General Source of Information: Reports: RN Notes Reviewed - History of Present Illness Duration: Constant Location: Reports: Chest, Abdomen, Generalized Quality: Reports: Other (denies pain) Severity: Moderate Improves with: Reports: None Worsens with: Reports: None Associated Symptoms: Reports: No Other Symptoms ED ROS GENERAL - Review of Systems Review Of Systems: ROS reveals no pertinent complaints other than HPI. ED EXAM, DIZZINESS - Physical Exam General Appearance: Alert, No Apparent Distress, Other (Chronically ill, and acutely ill but non-toxic appearing) Course - Orders/Labs/Meds Labs: Laboratory Tests 06/22/18 06/22/18 06/22/18 Range/Units 09:54 09:54 09:54 WBC 10.2 H (5.0-10.0) 10^3/uL RBC 3.85 L (4.6-6.2) 10^6/uL Hgb 10.8 L (14.0-18.0) g/dL Hct 32.7 L (40.0-54.0) % MCV 84.9 (80-100) fL MCH 28.1 (27.0-34.0) pg MCHC 33.0 (33.0-35.0) g/dL Plt Count 129 L (150-450) 10^3/uL Neut % (Auto) 83.6 H (42.2-75.2) % Lymph % (Auto) 8.3 L (20.5-50.1) % [place] % (Auto) 7.4 (2-8) % Eos % (Auto) 0.6 L (1.0-3.0) % Baso % (Auto) 0.1 (0.0-1.0) % Sodium 134 L (135-145) mmol/L Potassium 3.8 (3.6-5.0) mmol/L Chloride 100 L (101-111) mmol/L Carbon Dioxide 21.0 (21.0-31.0) mmol/L Anion Gap 16.8 BUN 50 H (7-18) mg/dL Creatinine 5.3 H (0.6-1.3) mg/dL Est Cr Clr Drug Dosing 15.19 mL/min Estimated GFR (MDRD) 11 BUN/Creatinine Ratio 9.43 Glucose 199 H (74-105) mg/dL Lactic Acid 1.3 (0.5-2.2) mmol/L Calcium 8.9 (8.4-10.2) mg/dl Total Bilirubin 1.1 H (0.2-1.0) mg/dL AST 39 (10-42) IU/L ALT 27 (10-60) IU/L Alkaline Phosphatase 78 (42-121) IU/L Total Protein 6.8 (6.7-8.2) g/dl Albumin 3.4 (3.2-5.5) g/dl Globulin 3.4 Albumin/Globulin Ratio 1.00 Amylase 33 (28-100) U/L Lipase 19 L (22-51) U/L Influenza A/B: negative Blood Cultures x2: pending - Radiology Interpretation Free Text/Narrative:: Chest X-ray: RLL infiltrate consistent with pneumonia per Rad. report. - Re-Assessments/Exams Free Text/Narrative Re-Assessment/Exam: 06/22/18 10:50 I personally performed or re-performed the physical examination and medical decision making. I have verified all student documentation or findings, including history, physical exam and/or medical decision making. Departure - Departure Time of Disposition: 10:51 (admit to Dr. Alvarenga) Condition: Serious - Discharge Information *PRESCRIPTION DRUG MONITORING PROGRAM REVIEWED*: Not Applicable *COPY OF PRESCRIPTION DRUG MONITORING REPORT IN PATIENT MELISSA: Not Applicable
[2018-06-22] MEDS ORDERED: Sodium Chloride 0.9% 10 ML Syringe FLUSH PRN (09:27)
[2018-06-22 10:21] LABS: ANION GAP 16.8
[2018-06-22] MEDS ORDERED: Ondansetron 4 MG/2 ML SDV IV ONE (10:22)
[2018-06-22] MEDS ORDERED: Piperacillin/Tazobactam 3.375 GM in Sodium Chloride 0.9% 100 ML IV ONE (10:22)
--- NOTE | 2018-06-22 10:25 | CR ---
Clinical history: 63-year-old male with cough and fever. Interpretation: Abnormal. Asymmetric patchy new round pneumonic like infiltrate right lower lobe compared 14 November 2017 exam. There appears to be some ipsilateral lymphadenopathy which may be inflammatory in nature but suggest follow-up PA chest after conservative management for "pneumonia". Normal cardiac silhouette without alveolar edema or dependent effusion. Despite less than optimal inspiratory effort left lung and pleural space are clear. CONCLUSION: Right lower lobe pneumonia.
[2018-06-22] MEDS ORDERED: Acetaminophen 325 MG Tab PO ONE (10:59)
[2018-06-22] MEDS ORDERED: Docusate Sodium 100 MG Cap PO PRN ×2 (11:49→11:56)
[2018-06-22] MEDS ORDERED: LORazepam 1 MG Tab PO PRN (11:49)
[2018-06-22] MEDS ORDERED: Polyethylene Glycol 3350 Powder 17 GM Packet PO PRN (11:56)
[2018-06-22] MEDS ORDERED: Magnesium Hydroxide 400 MG/5 ML Susp 30 ML Cup PO PRN (11:56)
[2018-06-22] MEDS ORDERED: Bisacodyl 5 MG Tab PO PRN (11:56)
[2018-06-22] MEDS ORDERED: guaiFENesin 100 MG/5 ML Soln 5 ML UD Cup PO PRN (12:04)
[2018-06-22] MEDS ORDERED: Piperacillin/Tazobactam 3.375 GM in Sodium Chloride 0.9% 100 ML IV SCH (12:15)
--- NOTE | 2018-06-22 12:21 | PCM.HP ---
H&P History of Present Illness - General Date of Service: 06/22/18 Admit Problem/Dx: Admission Diagnosis/Problem Admission Diagnosis/Problem Pneumonia Source of Information: Patient History Limitations: Reports: No Limitations - History of Present Illness Initial Comments - Free Text/Narative: Patient is 53-year-old male who presented with weakness, nausea and vomiting x 1 day. Patient states he has been feeling week for the past few days and yesterday could not help himself up. He tripped and fell yesterday on his peritoneal dialysis tubing. He also had nausea and vomiting. Vomit was clear liquid without blood. Weakness had gotten worse. He also notes non-productive cough. This is associated with fever and chills. He denies abdominal pain, dysuria. Patient was on HD but has been switch to PD ever other day since december. In the ER vitals were stable. Labs; wbc 10.2, hb 10.8, platelet 129, latate normal. Cxr concerning for RLL pneumonia. He recieved IVF and IV Zosyn in the ER. Onset of Symptoms: Reports: Gradual Duration of Symptoms: Reports: Day(s): Location: Reports: Chest, Generalized Quality: Reports: Ache Severity: Moderate Improves with: Reports: None Worsens with: Reports: None Associated Symptoms: Reports: No Other Symptoms, Cough, Fever/Chills, Loss of Appetite, Weakness - Related Data Allergies/Adverse Reactions: Allergies Allergy/AdvReac Type Severity Reaction Status Date / Time No Known Allergies Allergy Verified 06/22/18 11:43 Home Medications: Home Meds Hydrocodone/Acetaminophen [Hydrocodone-Acetaminophen 5-325] 1 tab PO TID PRN 03/25 [History] Insulin Detemir [Levemir Flexpen] 30 unit SQ BID 01/19/14 [History] Ezetimibe [Zetia] 10 mg PO DAILY 05/15/16 [History] Gabapentin [Neurontin] 300 mg PO BEDTIME 05/15/16 [History] LORazepam 1 mg PO QID PRN 05/15/16 [History] Loratadine 10 mg PO DAILY 05/15/16 [History] Terazosin HCl [Terazosin] 5 mg PO BEDTIME 05/15/16 [History] Docusate Sodium 100 mg PO BID PRN #60 capsule 12/29/16 [Rx] Isosorbide Mononitrate [Imdur] 120 mg PO BID 05/27/17 [History] Calcitriol [Rocaltrol] 0.25 mcg PO DAILY 06/12/17 [History] Calcium Citrate/Vitamin D3 [Calcium Citrate + D] 2 each PO BID 06/12/17 [History ] Carvedilol 50 mg PO BIDMEALS 06/12/17 [History] Cyanocobalamin (Vitamin B-12) [Vitamin B-12] 100 mcg PO DAILY 06/12/17 [History] Furosemide 60 mg PO DAILY 06/12/17 [History] atorvaSTATin [Lipitor] 20 mg PO BEDTIME 06/12/17 [History] hydrALAZINE [Apresoline] 150 mg PO Q8H 06/12/17 [History] metOLazone [Zaroxolyn] 2.5 mg PO .48H 06/12/17 [History] Omeprazole 20 mg PO DAILY 06/13/17 [History] Aspirin [Halfprin] 81 mg PO DAILY 06/22/18 [History] Diltiazem HCl [Taztia Xt] 120 mg PO DAILY 06/22/18 [History] Ranitidine [Zantac] 150 mg PO BID 06/22/18 [History] Sevelamer Carbonate 800 mg PO BIDMEALS 06/22/18 [History] Past Medical History HEENT History: Reports: Impaired Vision Other HEENT History: WEARS CORRECTIVE LENSES; UPPER AND LOWER DENTURE PLATE Cardiovascular History: Reports: CAD, Heart Failure, High Cholesterol, Hypertension, Stents Respiratory History: Reports: Pneumonia, Recurrent, SOB, Other (See Below) Other Respiratory History: recent bronchitis Gastrointestinal History: Reports: Chronic Constipation, Colon Polyp, Gastritis , GERD Other Gastrointestinal History: gall stones Genitourinary History: Reports: BPH, Chronic Renal Insuffiency, Dialysis, Peritoneal Musculoskeletal History: Reports: Fracture Other Musculoskeletal History: missing tip of pinkie on left hand Neurological History: Reports: Headaches, Chronic, Neuropathy, Diabetic Psychiatric History: Reports: Anxiety Endocrine/Metabolic History: Reports: Diabetes, Type II Hematologic History: Reports: B12 Deficiency Immunologic History: Reports: None Oncologic (Cancer) History: Reports: None Dermatologic History: Reports: None - Infectious Disease History Infectious Disease History: Reports: None - Past Surgical History Head Surgeries/Procedures: Reports: None HEENT Surgical History: Reports: None Cardiovascular Surgical History: Reports: Coronary Artery Stent Respiratory Surgical History: Reports: None GI Surgical History: Reports: Cholecystectomy Male Surgical History: Reports: None Neurological Surgical History: Reports: None Musculoskeletal Surgical History: Reports: None Other Musculoskeletal Surgeries/Procedures:: LEFT ANKLE SURGERY Oncologic Surgical History: Reports: None Dermatological Surgical History: Reports: None Social & Family History - Family History Family Medical History: Noncontributory : Reports: Renal Disease/Insufficiency Neurological: Reports: TIA Endocrine/Metabolic: Reports: Diabetes, type II - Tobacco Use Smoking Status *Q: Never Smoker Second Hand Smoke Exposure: Yes - Caffeine Use Caffeine Use: Reports: Coffee Caffeine Use Comment: decaf coffee - Recreational Drug Use Recreational Drug Use: No - Living Situation & Occupation Living situation: Reports: with Family, Occupation: Employed H&P Review of Systems - Review of Systems: Review Of Systems: See Below General: Reports: No Symptoms, Fever, Chills, Weakness, Fatigue, Decreased Appetite HEENT: Reports: No Symptoms Pulmonary: Reports: Cough Cardiovascular: Reports: No Symptoms Gastrointestinal: Reports: No Symptoms, Nausea, Vomiting Genitourinary: Reports: No Symptoms Musculoskeletal: Reports: No Symptoms Skin: Reports: No Symptoms Psychiatric: Reports: No Symptoms Neurological: Reports: No Symptoms Hematologic/Lymphatic: Reports: No Symptoms Immunologic: Reports: No Symptoms Exam - Exam Exam: See Below - Vital Signs Vital Signs: Last Vital Signs Temp 102.9 F H 06/22/18 10:59 Pulse 74 06/22/18 10:59 Resp 18 06/22/18 10:59 BP 155/77 H 06/22/18 10:59 Pulse Ox 97 06/22/18 10:59 Weight: 240 lb 1.6 oz - Exam Quality Assessment: Supplemental Oxygen, DVT Prophylaxis General: Alert, Oriented, 4 HEENT: PERRLA, Hearing Intact, Mucosa Moist & [place], Nares Patent, Normal Nasal Septum, Posterior Pharynx Clear, Conjunctiva Clear, EOMI, EACs Clear, TMs Clear Neck: Supple, Trachea Midline, 2 Lungs: Clear to Auscultation, Normal Respiratory Effort Cardiovascular: Regular Rate, Regular Rhythm GI/Abdominal Exam: Normal Bowel Sounds, Soft, Non-Tender, No Organomegaly, No Distention, No Abnormal Bruit, No Mass, Pelvis Stable (Male) Exam: No Hernia, Normal Inspection, Normal Prostate, Circumcised Rectal (Males) Exam: Normal Exam, Normal Rectal Tone, Prostate Normal Back Exam: Normal Inspection, Full Range of Motion, NT Extremities: Normal Inspection, Normal Range of Motion, Non-Tender, No Pedal Edema, Normal Capillary Refill Skin: Warm, Dry, Intact Neurological: Cranial Nerves Intact, Reflexes Equal Bilateral Neuro Extensive - Mental Status: Alert, Oriented x3, Normal Mood/Affect, Normal Cognition Neuro Extensive - Motor, Sensory, Reflexes: CN II-XII Intact, Normal Gait, Normal Reflexes Psychiatric: Alert, Normal Affect, Normal Mood - Patient Data Lab Results Last 24 hrs: Laboratory Results - last 24 hr 06/22/18 06/22/18 06/22/18 Range/Units 09:54 09:54 09:54 WBC 10.2 H (5.0-10.0) 10^3/uL RBC 3.85 L (4.6-6.2) 10^6/uL Hgb 10.8 L (14.0-18.0) g/dL Hct 32.7 L (40.0-54.0) % MCV 84.9 (80-100) fL MCH 28.1 (27.0-34.0) pg MCHC 33.0 (33.0-35.0) g/dL Plt Count 129 L (150-450) 10^3/uL Neut % (Auto) 83.6 H (42.2-75.2) % Lymph % (Auto) 8.3 L (20.5-50.1) % Rich % (Auto) 7.4 (2-8) % Eos % (Auto) 0.6 L (1.0-3.0) % Baso % (Auto) 0.1 (0.0-1.0) % Sodium 134 L (135-145) mmol/L Potassium 3.8 (3.6-5.0) mmol/L Chloride 100 L (101-111) mmol/L Carbon Dioxide 21.0 (21.0-31.0) mmol/L Anion Gap 16.8 BUN 50 H (7-18) mg/dL Creatinine 5.3 H (0.6-1.3) mg/dL Est Cr Clr Drug Dosing 15.19 mL/min Estimated GFR (MDRD) 11 BUN/Creatinine Ratio 9.43 Glucose 199 H (74-105) mg/dL Lactic Acid 1.3 (0.5-2.2) mmol/L Calcium 8.9 (8.4-10.2) mg/dl Total Bilirubin 1.1 H (0.2-1.0) mg/dL AST 39 (10-42) IU/L ALT 27 (10-60) IU/L Alkaline Phosphatase 78 (42-121) IU/L Total Protein 6.8 (6.7-8.2) g/dl Albumin 3.4 (3.2-5.5) g/dl Globulin 3.4 Albumin/Globulin Ratio 1.00 Amylase 33 (28-100) U/L Lipase 19 L (22-51) U/L Result Diagrams: 06/22/18 09:54 06/22/18 09:54 Sabino Results Last 24 hrs: Microbiology 06/22/18 09:58 Influenza Type A Antigen Screen - Final Nasal, Unspecified NEGATIVE INFLUENZA A VIRUS AG Influenza Type B Antigen Screen - Final NEGATIVE INFLUENZA B VIRUS AG 06/22/18 09:58 Group A Streptococcus Rapid Screen - Final Throat NEGATIVE STREP A SCREEN - Problem List (1) Accidental fall SNOMED Code(s): 300404551 ICD Code: W19.XXXA - UNSPECIFIED FALL, INITIAL ENCOUNTER Status: Acute Current Visit: No (2) Acute exacerbation of CHF (congestive heart failure) SNOMED Code(s): 58735590 ICD Code: I50.9 - HEART FAILURE, UNSPECIFIED Status: Acute Current Visit : No (3) Acute low back pain SNOMED Code(s): 255002684 ICD Code: M54.5 - LOW BACK PAIN Status: Acute Current Visit: No (4) Anemia SNOMED Code(s): 196539296 ICD Code: D64.9 - ANEMIA, UNSPECIFIED Status: Acute Current Visit: No Qualifiers: Anemia type: unspecified type Qualified Code(s): D64.9 - Anemia, unspecified (5) Diabetes mellitus SNOMED Code(s): 90840302 ICD Code: E11.9 - TYPE 2 DIABETES MELLITUS WITHOUT COMPLICATIONS Status: Acute Current Visit: No Qualifiers: Diabetes mellitus type: type 2 Diabetes mellitus complication status: with kidney complications Diabetes mellitus complication detail: with nephropathy (6) ESRD on peritoneal dialysis SNOMED Code(s): 70489576 ICD Code: N18.6 - END STAGE RENAL DISEASE; Z99.2 - DEPENDENCE ON RENAL DIALYSIS Status: Acute Current Visit: No (7) RLL pneumonia SNOMED Code(s): 070691159 ICD Code: J18.1 - LOBAR PNEUMONIA, UNSPECIFIED ORGANISM Status: Acute Current Visit: No Qualifiers: Pneumonia type: due to unspecified organism Qualified Code(s): J18.1 - Lobar pneumonia, unspecified organism (8) Weakness SNOMED Code(s): 67291584 ICD Code: R53.1 - WEAKNESS Status: Acute Current Visit: No (9) Diabetes mellitus type 2 with complications SNOMED Code(s): 09962001, 955056078 ICD Code: E11.8 - TYPE 2 DIABETES MELLITUS WITH UNSPECIFIED COMPLICATIONS Status: Chronic Priority: Medium Current Visit: No Qualifiers: Diabetes mellitus exterminator insulin use: with longterm use Qualified Code( s): E11.8 - Type 2 diabetes mellitus with unspecified complications; Z79.4 - care home (current) use of insulin Problem List Initiated/Reviewed/Updated: Yes Orders Last 24hrs: Active Orders 24 hr Category Date Time Status Patient Status [ADT] Routine ADT 06/22/18 11:57 Ordered Ambulate [RC] ASDIRECTED Care 06/22/18 11:56 Ordered Blood Glucose Check, Bedside [RC] QIDACANDBED Care 06/22/18 11:56 Ordered Notify Provider Vital Signs [RC] ASDIRECTED Care 06/22/18 11:59 Ordered Oxygen Therapy [RC] PRN Care 06/22/18 11:57 Ordered Peripheral IV Care [RC] . DIRECTED Care 06/22/18 09:27 Active VTE/DVT Education [RC] PER UNIT ROUTINE Care 06/22/18 11:57 Ordered Vital Signs [RC] Q4H Care 06/22/18 11:57 Ordered OT Evaluation and Treatment [CONS] Routine Cons 06/22/18 11:56 Ordered PT Evaluation and Treatment [CONS] Routine Cons 06/22/18 11:56 Ordered Respiratory Care Assess and Treatment [CONS] Routine Cons 06/22/18 11:56 Ordered Consistent Carbohydrate Diet [DIET] Diet 06/22/18 Lunch Ordered CBC W/O DIFF,HEMOGRAM [HEME] AM Lab 06/23/18 05:11 Ordered CULTURE BLOOD [BC] Stat Lab 06/22/18 09:49 Received CULTURE BLOOD [BC] Stat Lab 06/22/18 09:54 Received CULTURE STREP A CONFIRMATION [RM] Stat Lab 06/22/18 09:58 Results STREP SCRN A RAPID W CULT CONF [RM] Stat Lab 06/22/18 09:58 Results UA RFX SABINO AND CULT IF INDIC [URIN] Stat Lab 06/22/18 09:27 Ordered Acetaminophen [Tylenol] Med 06/22/18 11:56 Ordered 650 mg PO Q4H PRN Acetaminophen/HYDROcodone [[place] 325-5 MG] Med 06/22/18 11:49 Ordered 1 tab PO TID PRN Aspirin Med 06/22/18 09:00 Ordered 81 mg PO DAILY Bisacodyl [Dulcolax] Med 06/22/18 11:56 Ordered 5 mg PO DAILY PRN Calcitriol [Rocaltrol] Med 06/22/18 12:00 Ordered 0.25 mcg PO DAILY Calcium Citrate/Vitamin D3 [Calcium Citrate + D] Med 06/22/18 12:00 Ordered 2 each PO BID Carvedilol [Coreg] Med 06/22/18 12:00 Ordered 50 mg PO BID Cyanocobalamin (Vitamin B12) [Vitamin B12] Med 06/23/18 09:00 Ordered 100 mcg PO DAILY Docusate Sodium [Colace] Med 06/22/18 11:49 Ordered 100 mg PO BID PRN Ezetimibe [Zetia] Med 06/23/18 09:00 Ordered 10 mg PO DAILY Furosemide [Lasix] Med 06/23/18 09:00 Ordered 60 mg PO DAILY Gabapentin Med 06/22/18 21:00 Ordered 300 mg PO BEDTIME Heparin Sodium Med 06/22/18 12:00 Ordered 5,000 units SUBCUT Q12H Insulin Detemir [Levemir Flexpen] Med 06/22/18 21:00 Ordered 30 unit SQ BID Isosorbide Mononitrate [Imdur] Med 06/22/18 21:00 Ordered 120 mg PO BID LORazepam [Ativan] Med 06/22/18 11:49 Ordered 1 mg PO QID PRN Loratadine [Claritin] Med 06/23/18 09:00 Ordered 10 mg PO DAILY Magnesium Hydroxide [Milk of Magnesia] Med 06/22/18 11:56 Ordered 30 ml PO Q12H PRN Omeprazole Med 06/23/18 09:00 Ordered 20 mg PO DAILY Piperacillin/Tazobactam [Zosyn] 3.375 gm Med 06/22/18 12:15 Ordered Sodium Chloride 0.9% [Normal Saline] 100 ml IV Q8H Polyethylene Glycol 3350 [MiraLAX] Med 06/22/18 11:56 Ordered 17 gm PO DAILY PRN Sodium Chloride 0.9% @ 75 MLS/HR(1000ml) Med 06/22/18 12:15 Ordered Sodium Chloride 0.9% [Normal Saline] 1,000 ml IV ASDIRECTED Sodium Chloride 0.9% [Saline Flush] Med 06/22/18 09:27 Active 10 ml FLUSH ASDIRECTED PRN Terazosin [Hytrin] Med 06/22/18 21:00 Ordered 5 mg PO BEDTIME atorvaSTATin [Lipitor] Med 06/22/18 21:00 Ordered 20 mg PO BEDTIME guaiFENesin [Robitussin] Med 06/22/18 12:04 Ordered 100 mg PO Q6H PRN hydrALAZINE [Apresoline] Med 06/22/18 12:00 Ordered 150 mg PO Q8H metOLazone [Zaroxolyn] Med 06/22/18 12:00 Ordered 2.5 mg PO .48H Blood Culture x2 Reflex Set [OM.PC] Stat Oth 06/22/18 09:27 Ordered Peripheral IV Insertion Adult [OM.PC] Stat Oth 06/22/18 09:27 Ordered Resuscitation Status Routine Resus Stat 06/22/18 11:56 Ordered Medication Orders Acetaminophen (Tylenol) 650 mg PO Q4H PRN PRN Reason: Pain (Mild 1-3)/fever Hydrocodone Bitart/Acetaminophen ([place] 325-5 Mg) 1 tab PO TID PRN PRN Reason: Pain (moderate 4-6) Aspirin (Aspirin) 81 mg PO DAILY [facility]VI Atorvastatin Calcium (Lipitor) 20 mg PO BEDTIME [facility] Bisacodyl (Dulcolax) 5 mg PO DAILY PRN PRN Reason: Constipation Calcitriol (Rocaltrol) 0.25 mcg PO DAILY [facility] Carvedilol (Coreg) 50 mg PO BIDMEALS [facility] Cyanocobalamin (Vitamin B12) 100 mcg PO DAILY [facility] Docusate Sodium (Colace) 100 mg PO BID PRN PRN Reason: Stool Softener Ezetimibe (Zetia) 10 mg PO DAILY [facility] Furosemide (Lasix) 60 mg PO DAILY [facility] Guaifenesin (Robitussin) 100 mg PO Q6H PRN PRN Reason: Cough Heparin Sodium (Porcine) (Heparin Sodium) 5,000 units SUBCUT Q12HR [facility] Piperacillin Sod/Tazobactam (Sod 3.375 gm/ Sodium Chloride) 100 mls @ 200 mls/ hr IV Q8H [facility]VI Sodium Chloride (Normal Saline) 1,000 mls @ 75 mls/hr IV ASDIRECTED [facility] Isosorbide Mononitrate (Imdur) 120 mg PO BID [facility] Loratadine (Claritin) 10 mg PO DAILY [facility] Lorazepam (Ativan) 1 mg PO QID PRN PRN Reason: Anxiety Magnesium Hydroxide (Milk Of Magnesia) 30 ml PO Q12H PRN PRN Reason: Constipation Metolazone (Zaroxolyn) 2.5 mg PO .48H [facility] Non-Formulary Medication (Calcium Citrate/Vitamin D3 [Calcium Citrate + D]) 2 each PO BID [facility] Non-Formulary Medication (Gabapentin) 300 mg PO BEDTIME [facility] Non-Formulary Medication (Hydralazine [Apresoline]) 150 mg PO Q8H [facility] Non-Formulary Medication (Insulin Detemir [Levemir Flexpen]) 30 unit SQ BID [facility] Omeprazole (Omeprazole) 20 mg PO DAILY [facility] Polyethylene Glycol (Miralax) 17 gm PO DAILY PRN PRN Reason: Constipation Sodium Chloride (Saline Flush) 10 ml FLUSH ASDIRECTED PRN PRN Reason: Keep Vein Open Last Admin: 06/22/18 09:57 Dose: 10 ml Terazosin HCl (Hytrin) 5 mg PO BEDTIME [facility] Assessment/Plan Comment:: Right lower lobe pneumonia Admit patient to general medcal floors monitor vitals telemetry IV Zosyn Sputum for gram stain and cx blood cx supplemental oxygen as needed Possible sepsis due to pneumonia Lactate normal IV abx as above IVF Generalized weakness likely due to above plus deconditioning PT/OT DM-II SSI plus lantus POC glucose 4x daily Hypoglycemic protocol ESRD on PD q every other day CHF Not in exacerbation Continue home medications Anemia of chronic disease stable h&h monitor hb closely Thrombocytopenia asymptomatic monitor platelet closely Diabetic diet Full code
[2018-06-22] MEDS: hydrALAZINE 25 MG Tab PO SCH ×2 (15:49→21:14)
[2018-06-22] MEDS: Calcium Carbonate/Vitamin D3 1250 MG-200 Unit Tab PO SCH ×2 (15:50→21:15)
[2018-06-22] MEDS: Calcitriol 0.25 MCG Cap PO SCH (15:50)
[2018-06-22] MEDS: Aspirin 81 MG Tab.Chew PO SCH (15:50)
[2018-06-22] MEDS: Ezetimibe 10 MG Tab PO SCH (15:50)
[2018-06-22] MEDS: Carvedilol 25 MG Tab PO SCH (17:30)
[2018-06-22] MEDS: Isosorbide Mononitrate 60 MG Tab.ER PO SCH (17:31)
[2018-06-22] MEDS: Sodium Chloride 0.9% 1,000 ML IV SCH (17:49)
[2018-06-22] MEDS: Piperacillin/Tazobactam 2.25 GM in Sodium Chloride 0.9% 50 ML IV SCH (21:12)
[2018-06-22] MEDS: Terazosin 5 MG Cap PO SCH (21:14)
[2018-06-22] MEDS: Gabapentin 300 MG Cap PO SCH (21:15)
[2018-06-22] MEDS: atorvaSTATin 20 MG Tab PO SCH (21:15)
[2018-06-22] MEDS: Insulin Glarg,Human.Rec.Analog 100 UNIT/ML ML SUBCUT SCH (21:15)
[2018-06-22] MEDS: Heparin Sodium 5,000 Units/ML Vial SUBCUT SCH (21:16)
[2018-06-22] MEDS: Insulin Lispro 100 Units/ML 3 ML Vial SUBCUT SCH (21:16)
[2018-06-23] MEDS: Omeprazole 20 MG Cap.CR PO SCH (05:53)
[2018-06-23] MEDS: Isosorbide Mononitrate 60 MG Tab.ER PO SCH ×2 (05:53→17:52)
[2018-06-23] MEDS: hydrALAZINE 25 MG Tab PO SCH ×3 (05:54→21:31)
[2018-06-23] MEDS: Insulin Lispro 100 Units/ML 3 ML Vial SUBCUT SCH ×4 (07:37→21:29)
[2018-06-23] MEDS: Sodium Chloride 0.9% 1,000 ML IV SCH (07:47)
[2018-06-23] MEDS: Calcitriol 0.25 MCG Cap PO SCH (10:02)
[2018-06-23] MEDS: Aspirin 81 MG Tab.Chew PO SCH (10:03)
[2018-06-23] MEDS: Cyanocobalamin (Vitamin B12) 100 MCG Tab PO SCH (10:03)
[2018-06-23] MEDS: Furosemide 20 MG Tab PO SCH (10:03)
[2018-06-23] MEDS: Ezetimibe 10 MG Tab PO SCH (10:03)
[2018-06-23] MEDS: Calcium Carbonate/Vitamin D3 1250 MG-200 Unit Tab PO SCH ×2 (10:03→21:30)
[2018-06-23] MEDS: Loratadine 10 MG Tab PO SCH (10:03)
[2018-06-23] MEDS: Insulin Glarg,Human.Rec.Analog 100 UNIT/ML ML SUBCUT SCH ×2 (10:04→21:29)
[2018-06-23] MEDS: Carvedilol 25 MG Tab PO SCH ×2 (10:04→17:52)
[2018-06-23] MEDS: Heparin Sodium 5,000 Units/ML Vial SUBCUT SCH ×2 (10:05→21:30)
[2018-06-23] MEDS: Metolazone 2.5 MG Tab PO SCH (10:24)
[2018-06-23] MEDS: Piperacillin/Tazobactam 2.25 GM in Sodium Chloride 0.9% 50 ML IV SCH ×2 (10:24→21:28)
--- NOTE | 2018-06-23 10:53 | PCM.PN ---
- General Info Date of Service: 06/23/18 Admission Dx/Problem (Free Text): Admission Diagnosis/Problem Admission Diagnosis/Problem Pneumonia Subjective Update: Patient seen and examined today. No acute event overnight. He endorsed feeling better today but still reports some weakness Functional Status: Reports: Pain Controlled - Review of Systems General: Reports: No Symptoms HEENT: Reports: No Symptoms Pulmonary: Reports: No Symptoms Cardiovascular: Reports: No Symptoms Gastrointestinal: Reports: No Symptoms Genitourinary: Reports: No Symptoms Musculoskeletal: Reports: No Symptoms Skin: Reports: No Symptoms Neurological: Reports: No Symptoms Psychiatric: Reports: No Symptoms - Patient Data Vitals - Most Recent: Last Vital Signs Temp 98.2 F 06/23/18 08:00 Pulse 65 06/23/18 10:04 Resp 18 06/23/18 08:00 BP 115/60 06/23/18 10:04 Pulse Ox 97 06/23/18 08:00 Weight - Most Recent: 242 lb 4.8 oz I&O - Last 24 Hours: Intake & Output 06/22/18 06/23/18 06/23/18 22:59 06:59 14:59 Intake Total 600 1445 Output Total 250 Balance 350 1445 Lab Results Last 24 Hours: Laboratory Results - last 24 hr 06/22/18 06/22/18 06/22/18 Range/Units 17:06 18:23 21:13 WBC (5.0-10.0) 10^3/uL RBC (4.6-6.2) 10^6/uL Hgb (14.0-18.0) g/dL Hct (40.0-54.0) % MCV (80-100) fL MCH (27.0-34.0) pg MCHC (33.0-35.0) g/dL Plt Count (150-450) 10^3/uL POC Glucose 160 H 181 H (70-105) mg/dl Urine Color [place] (YELLOW) Urine Appearance Slightly cloudy (CLEAR) Urine pH 5.5 (5.0-9.0) Ur Specific [place] 1.020 (1.005-1.030) Urine Protein >=300 H (NEGATIVE) Urine Glucose (UA) 100 H (NEGATIVE) Urine Ketones Negative (NEGATIVE) Urine Occult Blood Trace-lysed H (NEGATIVE) Urine Nitrite Negative (NEGATIVE) Urine Bilirubin Negative (NEGATIVE) Urine Urobilinogen 0.2 (0.2-1.0) mg/dL Ur Leukocyte Esterase Negative (NEGATIVE) Urine RBC 0-5 /HPF Urine WBC 0-5 (0-5/HPF) /HPF Ur Epithelial Cells Few /HPF Amorphous Sediment Moderate (0/HPF) /HPF Urine Bacteria Few (0-FEW/HPF) /HPF Granular Casts Few /LPF 06/23/18 06/23/18 Range/Units 06:23 07:12 WBC 10.1 H (5.0-10.0) 10^3/uL RBC 3.21 L (4.6-6.2) 10^6/uL Hgb 9.0 L D (14.0-18.0) g/dL Hct 27.8 L (40.0-54.0) % MCV 86.6 (80-100) fL MCH 28.0 (27.0-34.0) pg MCHC 32.4 L (33.0-35.0) g/dL Plt Count 121 L (150-450) 10^3/uL POC Glucose 116 H (70-105) mg/dl Urine Color (YELLOW) Urine Appearance (CLEAR) Urine pH (5.0-9.0) Ur Specific [place] (1.005-1.030) Urine Protein (NEGATIVE) Urine Glucose (UA) (NEGATIVE) Urine Ketones (NEGATIVE) Urine Occult Blood (NEGATIVE) Urine Nitrite (NEGATIVE) Urine Bilirubin (NEGATIVE) Urine Urobilinogen (0.2-1.0) mg/dL Ur Leukocyte Esterase (NEGATIVE) Urine RBC /HPF Urine WBC (0-5/HPF) /HPF Ur Epithelial Cells /HPF Amorphous Sediment (0/HPF) /HPF Urine Bacteria (0-FEW/HPF) /HPF Granular Casts /LPF Sabino Results Last 24 Hours: Microbiology 06/22/18 09:54 Aerobic Blood Culture - Preliminary Blood - Venous - Lab Draw NO GROWTH AFTER 1 DAY Anaerobic Blood Culture - Preliminary NO GROWTH AFTER 1 DAY 06/22/18 09:49 Aerobic Blood Culture - Preliminary Blood - Venous NO GROWTH AFTER 1 DAY Anaerobic Blood Culture - Preliminary NO GROWTH AFTER 1 DAY 06/22/18 09:58 Quick Strep Confirmation Culture - Final Throat NO GROUP A STREP ISOLATED Group A Streptococcus Rapid Screen - Final NEGATIVE STREP A SCREEN 06/22/18 09:58 Influenza Type A Antigen Screen - Final Nasal, Unspecified NEGATIVE INFLUENZA A VIRUS AG Influenza Type B Antigen Screen - Final NEGATIVE INFLUENZA B VIRUS AG Med Orders - Current: Current Medications Acetaminophen (Tylenol) 650 mg PO Q4H PRN PRN Reason: Pain (Mild 1-3)/fever Hydrocodone Bitart/Acetaminophen ([place] 325-5 Mg) 1 tab PO TID PRN PRN Reason: Pain (moderate 4-6) Aspirin (Aspirin) 81 mg PO DAILY [facility] Last Admin: 06/23/18 10:03 Dose: 81 mg Atorvastatin Calcium (Lipitor) 20 mg PO BEDTIME [facility] Last Admin: 06/22/18 21:15 Dose: 20 mg Bisacodyl (Dulcolax) 5 mg PO DAILY PRN PRN Reason: Constipation Calcitriol (Rocaltrol) 0.25 mcg PO DAILY [facility] Last Admin: 06/23/18 10:02 Dose: 0.25 mcg Calcium Carbonate (Calcium Carbonate/Vitamin D 1250 Mg-200 Unit) 2 tab PO BID [facility] Last Admin: 06/23/18 10:03 Dose: 2 tab Carvedilol (Coreg) 50 mg PO BIDMEALS [facility] Last Admin: 06/23/18 10:04 Dose: 50 mg Cyanocobalamin (Vitamin B12) 100 mcg PO DAILY [facility] Last Admin: 06/23/18 10:03 Dose: 100 mcg Docusate Sodium (Colace) 100 mg PO BID PRN PRN Reason: Stool Softener Ezetimibe (Zetia) 10 mg PO DAILY [facility] Last Admin: 06/23/18 10:03 Dose: 10 mg Furosemide (Lasix) 60 mg PO DAILY [facility] Last Admin: 06/23/18 10:03 Dose: 60 mg Gabapentin (Neurontin) 300 mg PO BEDTIME [facility] Last Admin: 06/22/18 21:15 Dose: 300 mg Guaifenesin (Robitussin) 100 mg PO Q6H PRN PRN Reason: Cough Heparin Sodium (Porcine) (Heparin Sodium) 5,000 units SUBCUT Q12HR [facility] Last Admin: 06/23/18 10:05 Dose: 5,000 units Hydralazine HCl (Apresoline) 150 mg PO Q8HR [facility] Last Admin: 06/23/18 05:54 Dose: 150 mg Sodium Chloride (Normal Saline) 1,000 mls @ 75 mls/hr IV ASDIRECTED [facility] Last Admin: 06/23/18 07:47 Dose: 75 mls/hr Piperacillin Sod/Tazobactam (Sod 2.25 gm/ Sodium Chloride) 50 mls @ 100 mls/hr IV BID [facility] Last Admin: 06/23/18 10:24 Dose: 100 mls/hr Insulin Glargine (Lantus) 30 unit SUBCUT BID [facility] Last Admin: 06/23/18 10:04 Dose: 30 units Insulin Human Lispro (Humalog) 0 unit SUBCUT ACBED [facility]; Protocol Last Admin: 06/23/18 07:37 Dose: Not Given Isosorbide Mononitrate (Imdur) 120 mg PO BIDAC [facility] Last Admin: 06/23/18 05:53 Dose: 120 mg Loratadine (Claritin) 10 mg PO DAILY [facility] Last Admin: 06/23/18 10:03 Dose: 10 mg Lorazepam (Ativan) 1 mg PO QID PRN PRN Reason: Anxiety Magnesium Hydroxide (Milk Of Magnesia) 30 ml PO Q12H PRN PRN Reason: Constipation Metolazone (Zaroxolyn) 2.5 mg PO Q48H [facility] Last Admin: 06/23/18 10:24 Dose: 2.5 mg Omeprazole (Omeprazole) 20 mg PO ACBRK [facility] Last Admin: 06/23/18 05:53 Dose: 20 mg Polyethylene Glycol (Miralax) 17 gm PO DAILY PRN PRN Reason: Constipation Sodium Chloride (Saline Flush) 10 ml FLUSH ASDIRECTED PRN PRN Reason: Keep Vein Open Last Admin: 06/22/18 09:57 Dose: 10 ml Terazosin HCl (Hytrin) 5 mg PO BEDTIME [facility] Last Admin: 06/22/18 21:14 Dose: 5 mg Discontinued Medications Acetaminophen (Tylenol) 650 mg PO NOW ONE Stop: 06/22/18 11:00 Last Admin: 06/22/18 11:00 Dose: 650 mg Piperacillin Sod/Tazobactam (Sod 3.375 gm/ Sodium Chloride) 100 mls @ 200 mls/ hr IV ONETIME ONE Stop: 06/22/18 10:51 Last Admin: 06/22/18 11:00 Dose: 200 mls/hr Piperacillin Sod/Tazobactam (Sod 3.375 gm/ Sodium Chloride) 100 mls @ 200 mls/ hr IV Q8H [facility] Last Admin: 06/22/18 13:49 Dose: Not Given Ondansetron HCl (Zofran) 4 mg IV ONETIME ONE Stop: 06/22/18 10:23 Last Admin: 06/22/18 11:00 Dose: 4 mg - Exam Quality Assessment: DVT Prophylaxis General: Alert, Oriented HEENT: Pupils Equal, Pupils Reactive, EOMI, Mucous Membr. Moist/[place] Neck: Supple Lungs: Clear to Auscultation, Normal Respiratory Effort Cardiovascular: Regular Rate, Regular Rhythm GI/Abdominal Exam: Normal Bowel Sounds, Soft, Non-Tender, No Organomegaly, No Distention, No Abnormal Bruit, No Mass, Pelvis Stable (Male) Exam: No Hernia, Normal Inspection, Normal Prostate, Circumcised Back Exam: Normal Inspection, Full Range of Motion Extremities: Normal Inspection, Normal Range of Motion, Non-Tender, No Pedal Edema, Normal Capillary Refill Skin: Warm, Dry, Intact Wound/Incisions: Healing Well Neurological: No New Focal Deficit Psy/Mental Status: Alert, Normal Affect, Normal Mood - Problem List & Annotations (1) Accidental fall SNOMED Code(s): 042308054 Code(s): W19.XXXA - UNSPECIFIED FALL, INITIAL ENCOUNTER Status: Acute Current Visit: No (2) Acute exacerbation of CHF (congestive heart failure) SNOMED Code(s): 05980460 Code(s): I50.9 - HEART FAILURE, UNSPECIFIED Status: Acute Current Visit: No (3) Acute low back pain SNOMED Code(s): 979651127 Code(s): M54.5 - LOW BACK PAIN Status: Acute Current Visit: No (4) Anemia SNOMED Code(s): 567100386 Code(s): D64.9 - ANEMIA, UNSPECIFIED Status: Acute Current Visit: No Qualifiers: Anemia type: unspecified type Qualified Code(s): D64.9 - Anemia, unspecified (5) Diabetes mellitus SNOMED Code(s): 83434893 Code(s): E11.9 - TYPE 2 DIABETES MELLITUS WITHOUT COMPLICATIONS Status: Acute Current Visit: No Qualifiers: Diabetes mellitus type: type 2 Diabetes mellitus complication status: with kidney complications Diabetes mellitus complication detail: with nephropathy (6) ESRD on peritoneal dialysis SNOMED Code(s): 39102270 Code(s): N18.6 - END STAGE RENAL DISEASE; Z99.2 - DEPENDENCE ON RENAL DIALYSIS Status: Acute Current Visit: No (7) RLL pneumonia SNOMED Code(s): 607771520 Code(s): J18.1 - LOBAR PNEUMONIA, UNSPECIFIED ORGANISM Status: Acute Current Visit: No Qualifiers: Pneumonia type: due to unspecified organism Qualified Code(s): J18.1 - Lobar pneumonia, unspecified organism (8) Weakness SNOMED Code(s): 54136194 Code(s): R53.1 - WEAKNESS Status: Acute Current Visit: No (9) Diabetes mellitus type 2 with complications SNOMED Code(s): 07331740, 504769658 Code(s): E11.8 - TYPE 2 DIABETES MELLITUS WITH UNSPECIFIED COMPLICATIONS Status: Chronic Priority: Medium Current Visit: No Qualifiers: 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 Qualified Code( s): E11.8 - Type 2 diabetes mellitus with unspecified complications; Z79.4 - [facility] (current) use of insulin - Problem List Review Problem List Initiated/Reviewed/Updated: Yes - My Orders Last 24 Hours: My Active Orders 06/22/18 11:49 Acetaminophen/HYDROcodone [[place] 325-5 MG] 1 tab PO TID PRN Docusate Sodium [Colace] 100 mg PO BID PRN LORazepam [Ativan] 1 mg PO QID PRN 06/22/18 11:56 Ambulate [RC] ASDIRECTED Blood Glucose Check, Bedside [RC] QIDACANDBED OT Evaluation and Treatment [CONS] Routine PT Evaluation and Treatment [CONS] Routine Respiratory Care Assess and Treatment [CONS] Routine Acetaminophen [Tylenol] 650 mg PO Q4H PRN Bisacodyl [Dulcolax] 5 mg PO DAILY PRN Magnesium Hydroxide [Milk of Magnesia] 30 ml PO Q12H PRN Polyethylene Glycol 3350 [MiraLAX] 17 gm PO DAILY PRN Resuscitation Status Routine 06/22/18 11:57 Patient Status [ADT] Routine Oxygen Therapy [RC] .PRN VTE/DVT Education [RC] PER UNIT ROUTINE Vital Signs [RC] 04,08,12,16,06/22/18 11:59 Notify Provider Vital Signs [RC] ,06/22/18 12:00 Calcitriol [Rocaltrol] 0.25 mcg PO DAILY Calcium Carbonate/Vitamin D3 [Calcium Carbonate/Vitamin D 1250 MG-200 Unit] 2 tab PO BID 06/22/18 12:04 guaiFENesin [Robitussin] 100 mg PO Q6H PRN 06/22/18 12:15 Sodium Chloride 0.9% [Normal Saline] 1,000 ml IV ASDIRECTED 06/22/18 12:30 Ezetimibe [Zetia] 10 mg PO DAILY 06/22/18 12:35 CULTURE SPUTUM + SMEAR [RM] Routine 06/22/18 14:00 hydrALAZINE [Apresoline] 150 mg PO Q8HR 06/22/18 17:00 Isosorbide Mononitrate [Imdur] 120 mg PO BIDAC 06/22/18 17:22 Communication Order [RC] 06/22/18 18:00 Carvedilol [Coreg] 50 mg PO BIDMEALS 06/22/18 21:00 Gabapentin [Neurontin] 300 mg PO BEDTIME Heparin Sodium 5,000 units SUBCUT Q12HR Insulin Glarg,Human.Rec.Analog [LantUS] 30 unit SUBCUT BID Insulin Lispro [HumaLOG] See Protocol SUBCUT ACBED Piperacillin/Tazobactam [Zosyn] 2.25 gm Sodium Chloride 0.9% [Normal Saline] 50 ml IV BID Terazosin [Hytrin] 5 mg PO BEDTIME atorvaSTATin [Lipitor] 20 mg PO BEDTIME 06/22/18 Lunch Consistent Carbohydrate Diet [DIET] 06/23/18 06:00 Omeprazole 20 mg PO ACBRK 06/23/18 09:00 Cyanocobalamin (Vitamin B12) [Vitamin B12] 100 mcg PO DAILY Furosemide [Lasix] 60 mg PO DAILY Loratadine [Claritin] 10 mg PO DAILY metOLazone [Zaroxolyn] 2.5 mg PO Q48H - Plan Plan:: Right lower lobe pneumonia Continue IV Zosyn Follow cxs supplemental oxygen as needed Possible sepsis due to pneumonia IV abx as above Generalized weakness likely due to above plus deconditioning PT/OT DM-II SSI plus lantus POC glucose 4x daily Hypoglycemic protocol ESRD on PD q every other day CHF Not in exacerbation Continue home medications Anemia of chronic disease stable h&h monitor hb closely Thrombocytopenia asymptomatic monitor platelet closely Diabetic diet Full code
[2018-06-23] MEDS: Acetaminophen/HYDROcodone 325-5 MG Tab PO PRN (13:02)
[2018-06-23] MEDS: Terazosin 5 MG Cap PO SCH (21:30)
[2018-06-23] MEDS: Gabapentin 300 MG Cap PO SCH (21:31)
[2018-06-23] MEDS: atorvaSTATin 20 MG Tab PO SCH (21:31)
[2018-06-24] MEDS: Isosorbide Mononitrate 60 MG Tab.ER PO SCH ×2 (05:19→17:48)
[2018-06-24] MEDS: hydrALAZINE 25 MG Tab PO SCH ×3 (05:20→23:05)
[2018-06-24] MEDS: Omeprazole 20 MG Cap.CR PO SCH (05:20)
[2018-06-24] MEDS: Insulin Glarg,Human.Rec.Analog 100 UNIT/ML ML SUBCUT SCH ×2 (09:37→21:23)
[2018-06-24] MEDS: Insulin Lispro 100 Units/ML 3 ML Vial SUBCUT SCH ×4 (09:38→21:30)
[2018-06-24] MEDS: Calcitriol 0.25 MCG Cap PO SCH (09:42)
[2018-06-24] MEDS: Ezetimibe 10 MG Tab PO SCH (09:43)
[2018-06-24] MEDS: Furosemide 20 MG Tab PO SCH (09:43)
[2018-06-24] MEDS: Carvedilol 25 MG Tab PO SCH ×2 (09:43→17:47)
[2018-06-24] MEDS: Loratadine 10 MG Tab PO SCH (09:43)
[2018-06-24] MEDS: Aspirin 81 MG Tab.Chew PO SCH (09:43)
[2018-06-24] MEDS: Cyanocobalamin (Vitamin B12) 100 MCG Tab PO SCH (09:43)
[2018-06-24] MEDS: Acetaminophen/HYDROcodone 325-5 MG Tab PO PRN (09:44)
[2018-06-24] MEDS: Heparin Sodium 5,000 Units/ML Vial SUBCUT SCH ×2 (09:44→21:24)
[2018-06-24] MEDS: Calcium Carbonate/Vitamin D3 1250 MG-200 Unit Tab PO SCH ×2 (09:44→21:22)
[2018-06-24] MEDS: Piperacillin/Tazobactam 2.25 GM in Sodium Chloride 0.9% 50 ML IV SCH ×2 (09:49→21:24)
[2018-06-24] MEDS: Acetaminophen 325 MG Tab PO PRN ×2 (11:56→21:23)
--- NOTE | 2018-06-24 13:25 | CT ---
CLINICAL HISTORY: 63-year-old hypertensive 245 pound diabetic male complaining of headache. SCAN TECHNIQUE: Volume acquisition of data from an unenhanced CT scan of the head and brain obtained while the patient was lying supine on the Siemens multislice scanner [place], [place]. All data archived in the PACS system for storage, reformatting axial/sagittal/coronal planes and study (bone/brain windows). INTERPRETATION: Negative exam. Uniformly thick bony calvarium without sign of skull fracture, underlying brain contusion or epidural/subdural hematoma. Symmetric clear pneumatization of the mastoid and paranasal sinuses with the exception of a solitary small retention cyst, laterally, right maxillary antrum. No fractures. No foreign bodies. Symmetric cooper-white matter pattern without sign of appreciable atrophy or abnormal dilatation of the underlying ventricles. No supratentorial or posterior fossa mass lesion. Cerebellum and brainstem unremarkable. No ischemic infarcts or signs of acute intracerebral/intraventricular/subarachnoid bleed.
--- NOTE | 2018-06-24 13:33 | PCM.PN ---
- General Info Date of Service: 06/24/18 Admission Dx/Problem (Free Text): Admission Diagnosis/Problem Admission Diagnosis/Problem Pneumonia Subjective Update: Patient seen and examined today. No acute event overnight. He reports still feeling weak. He also notes occipital headache. He denies fever, chills, abdominal pain, N/V. he had peritoneal dialysis overnight. I requested for CT head w/o contrast and was negative. Functional Status: Reports: Pain Controlled - Review of Systems General: Reports: No Symptoms HEENT: Reports: No Symptoms Pulmonary: Reports: No Symptoms Cardiovascular: Reports: No Symptoms Gastrointestinal: Reports: No Symptoms Genitourinary: Reports: No Symptoms Musculoskeletal: Reports: No Symptoms Skin: Reports: No Symptoms Neurological: Reports: No Symptoms Psychiatric: Reports: No Symptoms - Patient Data Vitals - Most Recent: Last Vital Signs Temp 98.0 F 06/24/18 11:39 Pulse 63 06/24/18 11:39 Resp 18 06/24/18 11:39 BP 134/69 06/24/18 13:16 Pulse Ox 96 06/24/18 11:39 Weight - Most Recent: 245 lb I&O - Last 24 Hours: Intake & Output 06/23/18 06/24/18 06/24/18 22:59 06:59 14:59 Intake Total 400 320 Balance 400 320 Lab Results Last 24 Hours: Laboratory Results - last 24 hr 06/23/18 06/23/18 06/24/18 Range/Units 16:51 21:16 07:19 WBC (5.0-10.0) 10^3/uL RBC (4.6-6.2) 10^6/uL Hgb (14.0-18.0) g/dL Hct (40.0-54.0) % MCV (80-100) fL MCH (27.0-34.0) pg MCHC (33.0-35.0) g/dL Plt Count (150-450) 10^3/uL Neut % (Auto) (42.2-75.2) % Lymph % (Auto) (20.5-50.1) % [place] % (Auto) (2-8) % Eos % (Auto) (1.0-3.0) % Baso % (Auto) (0.0-1.0) % POC Glucose 164 H 163 H 203 H (70-105) mg/dl 06/24/18 06/24/18 Range/Units 09:59 11:19 WBC 6.7 (5.0-10.0) 10^3/uL RBC 3.40 L (4.6-6.2) 10^6/uL Hgb 9.7 L (14.0-18.0) g/dL Hct 29.3 L (40.0-54.0) % MCV 86.2 (80-100) fL MCH 28.5 (27.0-34.0) pg MCHC 33.1 (33.0-35.0) g/dL Plt Count 141 L (150-450) 10^3/uL Neut % (Auto) 70.3 (42.2-75.2) % Lymph % (Auto) 20.5 (20.5-50.1) % [place] % (Auto) 6.0 (2-8) % Eos % (Auto) 2.9 (1.0-3.0) % Baso % (Auto) 0.3 (0.0-1.0) % POC Glucose 196 H (70-105) mg/dl Sabino Results Last 24 Hours: Microbiology 06/22/18 09:54 Aerobic Blood Culture - Preliminary Blood - Venous - Lab Draw NO GROWTH AFTER 2 DAYS Anaerobic Blood Culture - Preliminary NO GROWTH AFTER 2 DAYS 06/22/18 09:49 Aerobic Blood Culture - Preliminary Blood - Venous NO GROWTH AFTER 2 DAYS Anaerobic Blood Culture - Preliminary NO GROWTH AFTER 2 DAYS 06/22/18 18:23 Urine Culture - Final Urine, Voided No Growth 06/22/18 09:58 Quick Strep Confirmation Culture - Final Throat NO GROUP A STREP ISOLATED Group A Streptococcus Rapid Screen - Final NEGATIVE STREP A SCREEN Med Orders - Current: Current Medications Acetaminophen (Tylenol) 650 mg PO Q4H PRN PRN Reason: Pain (Mild 1-3)/fever Last Admin: 06/24/18 11:56 Dose: 650 mg Hydrocodone Bitart/Acetaminophen ([place] 325-5 Mg) 1 tab PO TID PRN PRN Reason: Pain (moderate 4-6) Last Admin: 06/24/18 09:44 Dose: 1 tab Aspirin (Aspirin) 81 mg PO DAILY [facility] Last Admin: 06/24/18 09:43 Dose: 81 mg Atorvastatin Calcium (Lipitor) 20 mg PO BEDTIME [facility] Last Admin: 06/23/18 21:31 Dose: 20 mg Bisacodyl (Dulcolax) 5 mg PO DAILY PRN PRN Reason: Constipation Calcitriol (Rocaltrol) 0.25 mcg PO DAILY [facility] Last Admin: 06/24/18 09:42 Dose: 0.25 mcg Calcium Carbonate (Calcium Carbonate/Vitamin D 1250 Mg-200 Unit) 2 tab PO BID [facility] Last Admin: 06/24/18 09:44 Dose: 2 tab Carvedilol (Coreg) 50 mg PO BIDMEALS [facility] Last Admin: 06/24/18 09:43 Dose: 50 mg Cyanocobalamin (Vitamin B12) 100 mcg PO DAILY [facility] Last Admin: 06/24/18 09:43 Dose: 100 mcg Docusate Sodium (Colace) 100 mg PO BID PRN PRN Reason: Stool Softener Ezetimibe (Zetia) 10 mg PO DAILY [facility] Last Admin: 06/24/18 09:43 Dose: 10 mg Furosemide (Lasix) 60 mg PO DAILY [facility] Last Admin: 06/24/18 09:43 Dose: 60 mg Gabapentin (Neurontin) 300 mg PO BEDTIME [facility] Last Admin: 06/23/18 21:31 Dose: 300 mg Guaifenesin (Robitussin) 100 mg PO Q6H PRN PRN Reason: Cough Heparin Sodium (Porcine) (Heparin Sodium) 5,000 units SUBCUT Q12HR [facility] Last Admin: 06/24/18 09:44 Dose: 5,000 units Hydralazine HCl (Apresoline) 150 mg PO Q8HR [facility] Last Admin: 06/24/18 13:16 Dose: 150 mg Piperacillin Sod/Tazobactam (Sod 2.25 gm/ Sodium Chloride) 50 mls @ 100 mls/hr IV BID [facility] Last Admin: 06/24/18 09:49 Dose: 100 mls/hr Insulin Glargine (Lantus) 30 unit SUBCUT BID [facility] Last Admin: 06/24/18 09:37 Dose: 30 units Insulin Human Lispro (Humalog) 0 unit SUBCUT ACBED [facility]; Protocol Last Admin: 06/24/18 13:10 Dose: 2 units Isosorbide Mononitrate (Imdur) 120 mg PO BIDAC [facility] Last Admin: 06/24/18 05:19 Dose: 120 mg Loratadine (Claritin) 10 mg PO DAILY [facility] Last Admin: 06/24/18 09:43 Dose: 10 mg Lorazepam (Ativan) 1 mg PO QID PRN PRN Reason: Anxiety Magnesium Hydroxide (Milk Of Magnesia) 30 ml PO Q12H PRN PRN Reason: Constipation Metolazone (Zaroxolyn) 2.5 mg PO Q48H [facility] Last Admin: 06/23/18 10:24 Dose: 2.5 mg Omeprazole (Omeprazole) 20 mg PO ACBRK [facility] Last Admin: 06/24/18 05:20 Dose: 20 mg Polyethylene Glycol (Miralax) 17 gm PO DAILY PRN PRN Reason: Constipation Sodium Chloride (Saline Flush) 10 ml FLUSH ASDIRECTED PRN PRN Reason: Keep Vein Open Last Admin: 06/22/18 09:57 Dose: 10 ml Terazosin HCl (Hytrin) 5 mg PO BEDTIME [facility] Last Admin: 06/23/18 21:30 Dose: 5 mg Discontinued Medications Acetaminophen (Tylenol) 650 mg PO NOW ONE Stop: 06/22/18 11:00 Last Admin: 06/22/18 11:00 Dose: 650 mg Piperacillin Sod/Tazobactam (Sod 3.375 gm/ Sodium Chloride) 100 mls @ 200 mls/ hr IV ONETIME ONE Stop: 06/22/18 10:51 Last Admin: 06/22/18 11:00 Dose: 200 mls/hr Piperacillin Sod/Tazobactam (Sod 3.375 gm/ Sodium Chloride) 100 mls @ 200 mls/ hr IV Q8H [facility] Last Admin: 06/22/18 13:49 Dose: Not Given Sodium Chloride (Normal Saline) 1,000 mls @ 75 mls/hr IV ASDIRECTED [facility] Last Admin: 06/23/18 07:47 Dose: 75 mls/hr Ondansetron HCl (Zofran) 4 mg IV ONETIME ONE Stop: 06/22/18 10:23 Last Admin: 06/22/18 11:00 Dose: 4 mg - Exam General: Alert, Oriented HEENT: Pupils Equal, Pupils Reactive, EOMI, Mucous Membr. Moist/[place] Neck: Supple Lungs: Clear to Auscultation, Normal Respiratory Effort Cardiovascular: Regular Rate, Regular Rhythm GI/Abdominal Exam: Normal Bowel Sounds, Soft, Non-Tender, No Organomegaly, No Distention, No Abnormal Bruit, No Mass, Pelvis Stable (Male) Exam: No Hernia, Normal Inspection, Normal Prostate, Circumcised Back Exam: Normal Inspection, Full Range of Motion Extremities: Normal Inspection, Normal Range of Motion, Non-Tender, No Pedal Edema, Normal Capillary Refill Skin: Warm, Dry, Intact Wound/Incisions: Healing Well Neurological: No New Focal Deficit Psy/Mental Status: Alert, Normal Affect, Normal Mood - Problem List & Annotations (1) Accidental fall SNOMED Code(s): 226746386 Code(s): W19.XXXA - UNSPECIFIED FALL, INITIAL ENCOUNTER Status: Acute Current Visit: No (2) Acute exacerbation of CHF (congestive heart failure) SNOMED Code(s): 54652875 Code(s): I50.9 - HEART FAILURE, UNSPECIFIED Status: Acute Current Visit: No (3) Acute low back pain SNOMED Code(s): 131205558 Code(s): M54.5 - LOW BACK PAIN Status: Acute Current Visit: No (4) Anemia SNOMED Code(s): 088600937 Code(s): D64.9 - ANEMIA, UNSPECIFIED Status: Acute Current Visit: No Qualifiers: Anemia type: unspecified type Qualified Code(s): D64.9 - Anemia, unspecified (5) Diabetes mellitus SNOMED Code(s): 55554478 Code(s): E11.9 - TYPE 2 DIABETES MELLITUS WITHOUT COMPLICATIONS Status: Acute Current Visit: No Qualifiers: Diabetes mellitus type: type 2 Diabetes mellitus complication status: with kidney complications Diabetes mellitus complication detail: with nephropathy (6) ESRD on peritoneal dialysis SNOMED Code(s): 52660540 Code(s): N18.6 - END STAGE RENAL DISEASE; Z99.2 - DEPENDENCE ON RENAL DIALYSIS Status: Acute Current Visit: No (7) RLL pneumonia SNOMED Code(s): 244466691 Code(s): J18.1 - LOBAR PNEUMONIA, UNSPECIFIED ORGANISM Status: Acute Current Visit: No Qualifiers: Pneumonia type: due to unspecified organism Qualified Code(s): J18.1 - Lobar pneumonia, unspecified organism (8) Weakness SNOMED Code(s): 31840699 Code(s): R53.1 - WEAKNESS Status: Acute Current Visit: No (9) Diabetes mellitus type 2 with complications SNOMED Code(s): 48744167, 346376411 Code(s): E11.8 - TYPE 2 DIABETES MELLITUS WITH UNSPECIFIED COMPLICATIONS Status: Chronic Priority: Medium Current Visit: No Qualifiers: Diabetes mellitus nursing home insulin use: with nursing home use Qualified Code( s): E11.8 - Type 2 diabetes mellitus with unspecified complications; Z79.4 - nursing home (current) use of insulin - Problem List Review Problem List Initiated/Reviewed/Updated: Yes - Plan Plan:: Occipital headache CT head w/o negative Tylenol prn Right lower lobe pneumonia Continue IV Zosyn Follow cxs supplemental oxygen as needed Possible sepsis due to pneumonia Resolved IV abx as above Generalized weakness likely due to above plus deconditioning PT/OT DM-II SSI plus lantus POC glucose 4x daily Hypoglycemic protocol ESRD on PD q every other day CHF Not in exacerbation Continue home medications Anemia of chronic disease stable h&h monitor hb closely Thrombocytopenia asymptomatic monitor platelet closely Diabetic diet Full code Disposition: Home tomorrow if weakness improves.
[2018-06-24] MEDS ORDERED: Sodium Chloride 0.9% 1,000 ML IV SCH (14:00)
[2018-06-24] MEDS ORDERED: NS + KCl 20mEq/L 1,000 ML IV SCH (15:00)
[2018-06-24] MEDS: Gabapentin 300 MG Cap PO SCH (21:23)
[2018-06-24] MEDS: atorvaSTATin 20 MG Tab PO SCH (21:23)
[2018-06-24] MEDS: Terazosin 5 MG Cap PO SCH (21:23)
[2018-06-25] MEDS: Isosorbide Mononitrate 60 MG Tab.ER PO SCH (05:44)
[2018-06-25] MEDS: Omeprazole 20 MG Cap.CR PO SCH (05:44)
[2018-06-25] MEDS: hydrALAZINE 25 MG Tab PO SCH (05:45)
[2018-06-25] MEDS: Insulin Lispro 100 Units/ML 3 ML Vial SUBCUT SCH ×2 (08:29→12:47)
[2018-06-25] MEDS: Ezetimibe 10 MG Tab PO SCH (08:57)
[2018-06-25] MEDS: Calcitriol 0.25 MCG Cap PO SCH (08:58)
[2018-06-25] MEDS: Cyanocobalamin (Vitamin B12) 100 MCG Tab PO SCH (08:58)
[2018-06-25] MEDS: Calcium Carbonate/Vitamin D3 1250 MG-200 Unit Tab PO SCH (08:58)
[2018-06-25] MEDS: Furosemide 20 MG Tab PO SCH (08:58)
[2018-06-25] MEDS: Heparin Sodium 5,000 Units/ML Vial SUBCUT SCH (08:58)
[2018-06-25] MEDS: Loratadine 10 MG Tab PO SCH (08:58)
[2018-06-25] MEDS: Aspirin 81 MG Tab.Chew PO SCH (08:58)
[2018-06-25] MEDS: Insulin Glarg,Human.Rec.Analog 100 UNIT/ML ML SUBCUT SCH (08:59)
[2018-06-25] MEDS: Acetaminophen/HYDROcodone 325-5 MG Tab PO PRN (09:03)
[2018-06-25] MEDS: Carvedilol 25 MG Tab PO SCH (09:03)
[2018-06-25] MEDS: Piperacillin/Tazobactam 2.25 GM in Sodium Chloride 0.9% 50 ML IV SCH (09:21)
--- NOTE | 2018-06-25 09:28 | PCM.DCSUM1 ---
Discharge Summary - Hospital Course Free Text/Narrative:: presented with pneumonia Right lower lobe pneumonia treated with IV Zosyn switch to PO Levofloxacin adjust dose to CKD Possible sepsis due to pneumonia Resolved DM-II cont lantus ESRD on PD every other day Anemia of chronic disease stable h&h monitor hb periodically Diagnosis: Stroke: No - Discharge Data Discharge Date: 06/25/18 Discharge Disposition: Home, Self-Care 01 Condition: Good - Patient Summary/Data Consults: Consultations 06/22/18 11:56 OT Evaluation and Treatment [CONS] Routine PT Evaluation and Treatment [CONS] Routine Respiratory Care Assess and Treatment [CONS] Routine - Patient Instructions Diet: Renal Diet Activity: As Tolerated - Discharge Plan *PRESCRIPTION DRUG MONITORING PROGRAM REVIEWED*: Not Applicable *COPY OF PRESCRIPTION DRUG MONITORING REPORT IN PATIENT MELISSA: Not Applicable Prescriptions/Med Rec: Levofloxacin 500 mg PO .Q2DAYS #3 tablet Home Medications: Home Meds Hydrocodone/Acetaminophen [Hydrocodone-Acetaminophen 5-325] 1 tab PO TID PRN 03/25 [History] Insulin Detemir [Levemir Flexpen] 30 unit SQ BID 01/19/14 [History] Ezetimibe [Zetia] 10 mg PO DAILY 05/15/16 [History] Gabapentin [Neurontin] 300 mg PO BEDTIME 05/15/16 [History] LORazepam 1 mg PO QID PRN 05/15/16 [History] Loratadine 10 mg PO DAILY 05/15/16 [History] Terazosin HCl [Terazosin] 5 mg PO BEDTIME 05/15/16 [History] Docusate Sodium 100 mg PO BID PRN #60 capsule 12/29/16 [Rx] Isosorbide Mononitrate [Imdur] 120 mg PO BID 05/27/17 [History] Calcitriol [Rocaltrol] 0.25 mcg PO DAILY 06/12/17 [History] Calcium Citrate/Vitamin D3 [Calcium Citrate + D] 2 each PO BID 06/12/17 [History ] Carvedilol 50 mg PO BIDMEALS 06/12/17 [History] Cyanocobalamin (Vitamin B-12) [Vitamin B-12] 100 mcg PO DAILY 06/12/17 [History] Furosemide 60 mg PO DAILY 06/12/17 [History] atorvaSTATin [Lipitor] 20 mg PO BEDTIME 02/01/18 [History] hydrALAZINE [Apresoline] 150 mg PO Q8H 06/12/17 [History] metOLazone [Zaroxolyn] 2.5 mg PO .48H 06/12/17 [History] Omeprazole 20 mg PO DAILY 06/13/17 [History] Aspirin [Halfprin] 81 mg PO DAILY 06/22/18 [History] Diltiazem HCl [Taztia Xt] 120 mg PO DAILY 06/22/18 [History] Ranitidine [Zantac] 150 mg PO BID 06/22/18 [History] Sevelamer Carbonate 800 mg PO BIDMEALS 06/22/18 [History] Aspirin 81 mg PO DAILY tab.chew 06/25/18 [Rx] Insulin Lispro [HumaLOG] 0 unit SUBCUT ACBED vial 06/25/18 [Rx] Levofloxacin 500 mg PO .Q2DAYS #3 tablet 06/25/18 [Rx] Forms: ED Department Discharge Referrals: PCP,None [Primary Care Provider] - - Discharge Summary/Plan Comment DC Time >30 min.: No - General Info Date of Service: 06/25/18 - Review of Systems General: Denies: Fever, Weakness Pulmonary: Denies: Shortness of Breath Cardiovascular: Denies: Chest Pain Gastrointestinal: Reports: Other (PD is going well). Denies: Abdominal Pain Neurological: Denies: Confusion - Patient Data Vitals - Most Recent: Last Vital Signs Temp 36.7 C 06/25/18 08:00 Pulse 64 06/25/18 09:03 Resp 18 06/25/18 08:00 BP 135/55 L 06/25/18 09:03 Pulse Ox 97 06/25/18 08:00 Weight - Most Recent: 111.13 kg I&O - Last 24 hours: Intake & Output 06/24/18 06/25/18 06/25/18 22:59 06:59 14:59 Intake Total 360 200 Balance 360 200 Lab Results - Last 24 hrs: Laboratory Results - last 24 hr 06/24/18 06/24/18 06/24/18 Range/Units 09:59 11:19 16:36 WBC 6.7 (5.0-10.0) 10^3/uL RBC 3.40 L (4.6-6.2) 10^6/uL Hgb 9.7 L (14.0-18.0) g/dL Hct 29.3 L (40.0-54.0) % MCV 86.2 (80-100) fL MCH 28.5 (27.0-34.0) pg MCHC 33.1 (33.0-35.0) g/dL Plt Count 141 L (150-450) 10^3/uL Neut % (Auto) 70.3 (42.2-75.2) % Lymph % (Auto) 20.5 (20.5-50.1) % [place] % (Auto) 6.0 (2-8) % Eos % (Auto) 2.9 (1.0-3.0) % Baso % (Auto) 0.3 (0.0-1.0) % POC Glucose 196 H 96 (70-105) mg/dl 06/24/18 06/25/18 Range/Units 20:49 07:26 WBC (5.0-10.0) 10^3/uL RBC (4.6-6.2) 10^6/uL Hgb (14.0-18.0) g/dL Hct (40.0-54.0) % MCV (80-100) fL MCH (27.0-34.0) pg MCHC (33.0-35.0) g/dL Plt Count (150-450) 10^3/uL Neut % (Auto) (42.2-75.2) % Lymph % (Auto) (20.5-50.1) % [place] % (Auto) (2-8) % Eos % (Auto) (1.0-3.0) % Baso % (Auto) (0.0-1.0) % POC Glucose 102 112 H (70-105) mg/dl PATTY Results - Last 24 hrs: Microbiology 06/22/18 09:54 Aerobic Blood Culture - Preliminary Blood - Venous - Lab Draw NO GROWTH AFTER 2 DAYS Anaerobic Blood Culture - Preliminary NO GROWTH AFTER 2 DAYS 06/22/18 09:49 Aerobic Blood Culture - Preliminary Blood - Venous NO GROWTH AFTER 2 DAYS Anaerobic Blood Culture - Preliminary NO GROWTH AFTER 2 DAYS 06/22/18 18:23 Urine Culture - Final Urine, Voided No Growth Med Orders - Current: Current Medications Acetaminophen (Tylenol) 650 mg PO Q4H PRN PRN Reason: Pain (Mild 1-3)/fever Last Admin: 02/13/19 21:23 Dose: 650 mg Hydrocodone Bitart/Acetaminophen ([place] 325-5 Mg) 1 tab PO TID PRN PRN Reason: Pain (moderate 4-6) Last Admin: 06/25/18 09:03 Dose: 1 tab Aspirin (Aspirin) 81 mg PO DAILY [facility] Last Admin: 06/25/18 08:58 Dose: 81 mg Atorvastatin Calcium (Lipitor) 20 mg PO BEDTIME [facility] Last Admin: 06/24/18 21:23 Dose: 20 mg Bisacodyl (Dulcolax) 5 mg PO DAILY PRN PRN Reason: Constipation Calcitriol (Rocaltrol) 0.25 mcg PO DAILY [facility] Last Admin: 06/25/18 08:58 Dose: 0.25 mcg Calcium Carbonate (Calcium Carbonate/Vitamin D 1250 Mg-200 Unit) 2 tab PO BID [facility] Last Admin: 06/25/18 08:58 Dose: 2 tab Carvedilol (Coreg) 50 mg PO BIDMEALS [facility] Last Admin: 06/25/18 09:03 Dose: 50 mg Cyanocobalamin (Vitamin B12) 100 mcg PO DAILY [facility] Last Admin: 06/25/18 08:58 Dose: 100 mcg Docusate Sodium (Colace) 100 mg PO BID PRN PRN Reason: Stool Softener Ezetimibe (Zetia) 10 mg PO DAILY [facility] Last Admin: 06/25/18 08:57 Dose: 10 mg Furosemide (Lasix) 60 mg PO DAILY [facility] Last Admin: 06/25/18 08:58 Dose: 60 mg Gabapentin (Neurontin) 300 mg PO BEDTIME [facility] Last Admin: 06/24/18 21:23 Dose: 300 mg Guaifenesin (Robitussin) 100 mg PO Q6H PRN PRN Reason: Cough Heparin Sodium (Porcine) (Heparin Sodium) 5,000 units SUBCUT Q12HR [facility] Last Admin: 06/25/18 08:58 Dose: 5,000 units Hydralazine HCl (Apresoline) 150 mg PO Q8HR [facility] Last Admin: 06/25/18 05:45 Dose: 150 mg Piperacillin Sod/Tazobactam (Sod 2.25 gm/ Sodium Chloride) 50 mls @ 100 mls/hr IV BID [facility] Last Admin: 06/25/18 09:21 Dose: 100 mls/hr Potassium Chloride/Sodium Chloride (Normal Saline With 20 Meq Kcl) 1,000 mls @ 75 mls/hr IV ASDIRECTED [facility] Last Admin: 06/24/18 15:43 Dose: 75 mls/hr Insulin Glargine (Lantus) 30 unit SUBCUT BID [facility] Last Admin: 06/25/18 08:59 Dose: 30 units Insulin Human Lispro (Humalog) 0 unit SUBCUT ACBED [facility]; Protocol Last Admin: 06/25/18 08:29 Dose: Not Given Isosorbide Mononitrate (Imdur) 120 mg PO BIDAC [facility] Last Admin: 06/25/18 05:44 Dose: 120 mg Loratadine (Claritin) 10 mg PO DAILY [facility] Last Admin: 06/25/18 08:58 Dose: 10 mg Lorazepam (Ativan) 1 mg PO QID PRN PRN Reason: Anxiety Last Admin: 06/24/18 21:22 Dose: 1 mg Magnesium Hydroxide (Milk Of Magnesia) 30 ml PO Q12H PRN PRN Reason: Constipation Metolazone (Zaroxolyn) 2.5 mg PO Q48H [facility] Last Admin: 06/23/18 10:24 Dose: 2.5 mg Omeprazole (Omeprazole) 20 mg PO ACBRK [facility] Last Admin: 06/25/18 05:44 Dose: 20 mg Polyethylene Glycol (Miralax) 17 gm PO DAILY PRN PRN Reason: Constipation Sodium Chloride (Saline Flush) 10 ml FLUSH ASDIRECTED PRN PRN Reason: Keep Vein Open Last Admin: 06/22/18 09:57 Dose: 10 ml Terazosin HCl (Hytrin) 5 mg PO BEDTIME [facility] Last Admin: 06/24/18 21:23 Dose: 5 mg Discontinued Medications Acetaminophen (Tylenol) 650 mg PO NOW ONE Stop: 06/22/18 11:00 Last Admin: 06/22/18 11:00 Dose: 650 mg Piperacillin Sod/Tazobactam (Sod 3.375 gm/ Sodium Chloride) 100 mls @ 200 mls/ hr IV ONETIME ONE Stop: 06/22/18 10:51 Last Admin: 06/22/18 11:00 Dose: 200 mls/hr Piperacillin Sod/Tazobactam (Sod 3.375 gm/ Sodium Chloride) 100 mls @ 200 mls/ hr IV Q8H [facility] Last Admin: 06/22/18 13:49 Dose: Not Given Sodium Chloride (Normal Saline) 1,000 mls @ 75 mls/hr IV ASDIRECTED [facility] Last Admin: 06/23/18 07:47 Dose: 75 mls/hr Sodium Chloride (Normal Saline) 1,000 mls @ 75 mls/hr IV ASDIRECTED [facility] Stop: 06/24/18 19:00 Ondansetron HCl (Zofran) 4 mg IV ONETIME ONE Stop: 06/22/18 10:23 Last Admin: 06/22/18 11:00 Dose: 4 mg - Exam Quality Assessment: Denies: Supplemental Oxygen General: Reports: Alert, Oriented Neck: Reports: Supple Lungs: Reports: Clear to Auscultation, Normal Respiratory Effort Cardiovascular: Reports: Regular Rate, Regular Rhythm GI/Abdominal Exam: Normal Bowel Sounds, Soft, Non-Tender, Other (pd catheter in place) Extremities: No: Pedal Edema Skin: Reports: Warm, Dry
[2018-06-25] MEDS: Metolazone 2.5 MG Tab PO SCH (09:54)
[2018-06-25 11:43] VITALS: BP 135/75
== END 2018-06-25 13:45 | disposition home or self-care (01) | DRG 871 ==
LOC: DL.ED 09:13 → UNDOADMIN 11:04 → DL.MS 11:04 → UNDOADMIN 13:24
PROVIDERS: ADMIT Student in an Organized Health Care Education/Training Program; ATTEND Internal Medicine
DX: A41.9 Sepsis, unspecified organism (principal); J18.1 Lobar pneumonia, unspecified organism; N18.6 End stage renal disease; I13.2 Hypertensive heart and chronic kidney disease with heart failure and with stage 5 chronic kidney disease, or end stage renal disease; D63.1 Anemia in chronic kidney disease; E11.22 Type 2 diabetes mellitus with diabetic chronic kidney disease; H54.7 Unspecified visual loss; I25.10 Atherosclerotic heart disease of native coronary artery without angina pectoris; E78.00 Pure hypercholesterolemia, unspecified; I50.9 Heart failure, unspecified; K59.09 Other constipation; K21.9 Gastro-esophageal reflux disease without esophagitis; N40.0 Benign prostatic hyperplasia without lower urinary tract symptoms; G89.29 Other chronic pain; E11.40 Type 2 diabetes mellitus with diabetic neuropathy, unspecified; F41.9 Anxiety disorder, unspecified; E53.8 Deficiency of other specified B group vitamins; M54.5 Low back pain; W19.XXXA Unspecified fall, initial encounter; E11.21 Type 2 diabetes mellitus with diabetic nephropathy; D69.6 Thrombocytopenia, unspecified; Z99.2 Dependence on renal dialysis; Z79.4 Long term (current) use of insulin; Z79.82 Long term (current) use of aspirin; Z79.891 Long term (current) use of opiate analgesic; Z79.899 Other long term (current) drug therapy; Z95.5 Presence of coronary angioplasty implant and graft; Z86.010 Personal history of colon polyps; Z90.49 Acquired absence of other specified parts of digestive tract
CPT/HCPCS: 36415; 70450; 71045; 80053; 81001; 82150; 82962; 83605; 83690; 85025; 85027; 87040; 87081; 87086; 87430; 87804; 96365; 96375; 97162-GP; 97165-GO; 99284; 99285; A9270-GY; J1644; J1815; J1815-GY; J2405; J2543; J3480; J7030; J7050

== ENCOUNTER 2018-09-15 04:00 | Emergency (ER) | payer MEDICARE, OTHER ==
--- NOTE | 2018-09-15 04:23 | EDM.PDOC ---
ED HPI GENERAL MEDICAL PROBLEM - General Chief Complaint: General Stated Complaint: AMBULANCE-UNKNOWN Time Seen by Provider: 09/15/18 04:20 Source of Information: Reports: Patient History Limitations: Reports: No Limitations - History of Present Illness INITIAL COMMENTS - FREE TEXT/NARRATIVE: This 63 yo male patient was brought to the ED by [facility] due to difficulties breathing, increased anxiety and numbness in his upper and lower extremities. The patient reports he took a Lorazepam and Hydralizine at about 0315. By the time he arrived in the ED, the patient reports he is feeling better. The patient reports he took a Benadryl last night at about 2200 due to redness and swelling in his face. The patient reports that he normally does not take Benadryl. The patient reports his granddaughter reports a similar reaction when she was given Benadryl in the past. Onset: Today Onset Date: 09/15/18 Onset Time: 03:00 Duration: Resolved Prior to Arrival Location: Reports: Generalized Quality: Reports: Other Severity: Moderate Improves with: Reports: Medication Worsens with: Reports: None Context: Reports: Other Associated Symptoms: Reports: No Other Symptoms Treatments [employer]: Reports: Aspirin, Other Medication(s) (Hydralazine and Lorazepam ) Headache Pain Score (Numeric/FACES): 3 - Related Data Allergies Allergy/AdvReac Type Severity Reaction Status Date / Time No Known Allergies Allergy Verified 09/15/18 04:49 Home Meds: Home Meds RX: Hydrocodone/Acetaminophen [Hydrocodone-Acetaminophen 5-325] 1 tab PO TID PRN 12/20/13 [History] RX: Insulin Detemir [Levemir Flexpen] 30 unit SQ BID 01/19/14 [History] RX: Ezetimibe [Zetia] 10 mg PO DAILY 05/15/16 [History] RX: Gabapentin [Neurontin] 300 mg PO BEDTIME 05/15/16 [History] RX: LORazepam 1 mg PO QID PRN 05/15/16 [History] RX: Loratadine 10 mg PO DAILY 05/15/16 [History] RX: Terazosin HCl [Terazosin] 5 mg PO BEDTIME 05/15/16 [History] RX: Docusate Sodium 100 mg PO BID PRN #60 capsule 12/29/16 [Rx] RX: Isosorbide Mononitrate [Imdur] 120 mg PO BID 05/27/17 [History] RX: Calcitriol [Rocaltrol] 0.25 mcg PO DAILY 06/12/17 [History] RX: Calcium Citrate/Vitamin D3 [Calcium Citrate + D] 2 each PO BID 06/12/17 [ History] RX: Carvedilol 50 mg PO BIDMEALS 06/12/17 [History] RX: Cyanocobalamin (Vitamin B-12) [Vitamin B-12] 100 mcg PO DAILY 06/12/17 [ History] RX: Furosemide 60 mg PO DAILY 06/12/17 [History] RX: atorvaSTATin [Lipitor] 20 mg PO BEDTIME 06/12/17 [History] RX: hydrALAZINE [Apresoline] 150 mg PO Q8H 06/12/17 [History] RX: metOLazone [Zaroxolyn] 2.5 mg PO .48H 06/12/17 [History] RX: Aspirin [Halfprin] 81 mg PO DAILY 06/22/18 [History] RX: Diltiazem HCl [Taztia Xt] 120 mg PO DAILY 06/22/18 [History] RX: Ranitidine [Zantac] 150 mg PO BID 06/22/18 [History] RX: Sevelamer Carbonate 800 mg PO BIDMEALS 06/22/18 [History] RX: Aspirin 81 mg PO DAILY tab.chew 06/25/18 [Rx] RX: Insulin Lispro [HumaLOG] 0 unit SUBCUT ACBED vial 06/25/18 [Rx] RX: Levofloxacin 500 mg PO .Q2DAYS #3 tablet 06/25/18 [Rx] RX: Mupirocin Oint [Bactroban Oint] 1 applic TOP DAILY 09/15/18 [History] Past Medical History HEENT History: Reports: Impaired Vision Other HEENT History: WEARS CORRECTIVE LENSES; UPPER AND LOWER DENTURE PLATE Cardiovascular History: Reports: CAD, Heart Failure, High Cholesterol, Hypertension, Stents Respiratory History: Reports: Pneumonia, Recurrent, SOB, Other (See Below) Other Respiratory History: recent bronchitis Gastrointestinal History: Reports: Chronic Constipation, Colon Polyp, Gastritis , GERD Other Gastrointestinal History: gall stones Genitourinary History: Reports: BPH, Chronic Renal Insuffiency, Dialysis, Peritoneal Musculoskeletal History: Reports: Fracture Other Musculoskeletal History: missing tip of pinkie on left hand Neurological History: Reports: Headaches, Chronic, Neuropathy, Diabetic Psychiatric History: Reports: Anxiety Endocrine/Metabolic History: Reports: Diabetes, Type II Hematologic History: Reports: B12 Deficiency Immunologic History: Reports: None Oncologic (Cancer) History: Reports: None Dermatologic History: Reports: None - Infectious Disease History Infectious Disease History: Reports: None - Past Surgical History Head Surgeries/Procedures: Reports: None HEENT Surgical History: Reports: None Cardiovascular Surgical History: Reports: Coronary Artery Stent Respiratory Surgical History: Reports: None GI Surgical History: Reports: Cholecystectomy Male Surgical History: Reports: None Neurological Surgical History: Reports: None Musculoskeletal Surgical History: Reports: None Other Musculoskeletal Surgeries/Procedures:: LEFT ANKLE SURGERY Oncologic Surgical History: Reports: None Dermatological Surgical History: Reports: None Social & Family History - Family History Family Medical History: Noncontributory : Reports: Renal Disease/Insufficiency Neurological: Reports: TIA Endocrine/Metabolic: Reports: Diabetes, type II - Caffeine Use Caffeine Use: Reports: Coffee Caffeine Use Comment: decaf coffee - Living Situation & Occupation Living situation: Reports: with Family, Occupation: Employed ED ROS GENERAL - Review of Systems Review Of Systems: ROS reveals no pertinent complaints other than HPI. ED EXAM, GENERAL - Physical Exam Exam: See Below Exam Limited By: No Limitations General Appearance: Alert, WD/WN, Anxious, Mild Distress Eye Exam: Bilateral Eye: EOMI, Normal Inspection, PERRL Ears: Normal External Exam, Normal Canal, Hearing Grossly Normal, Normal TMs Nose: Normal Inspection, Normal Mucosa, No Blood Throat/Mouth: Normal Inspection, Normal Lips, Normal Teeth, Normal Gums, Normal Oropharynx, Normal Voice, No Airway Compromise Head: Atraumatic, Normocephalic Neck: Normal Inspection, Supple, Non-Tender, Full Range of Motion Respiratory/Chest: No Respiratory Distress, Lungs Clear, Normal Breath Sounds, No Accessory Muscle Use, Chest Non-Tender Cardiovascular: Normal Peripheral Pulses, Regular Rate, Rhythm, No Edema, No Gallop, No JVD, No Murmur, No Rub GI/Abdominal: Normal Bowel Sounds, Soft, Non-Tender, No Organomegaly, No Distention, No Abnormal Bruit, No Mass (Male) Exam: Deferred Rectal (Males) Exam: Deferred Back Exam: Normal Inspection, Full Range of Motion, NT Extremities: Normal Inspection, Normal Range of Motion, Non-Tender, Normal Capillary Refill, No Pedal Edema Neurological: Alert, Oriented, CN II-XII Intact, Normal Cognition, Normal Gait, Normal Reflexes, No Motor/Sensory Deficits Psychiatric: Normal Affect, Anxious Skin Exam: Warm, Dry, Intact, Normal Color, No Rash Lymphatic: No Adenopathy Course - Vital Signs Last Recorded V/S: Last Vital Signs Temp 36.4 C 09/15/18 04:00 Pulse 52 L 09/15/18 04:00 Resp 21 H 09/15/18 04:00 BP 170/79 H 09/15/18 04:00 Pulse Ox 100 09/15/18 04:00 - Orders/Labs/Meds Orders: Active Orders 24 hr Category Date Time Status EKG Documentation Completion [RC] URGENT Care 09/15/18 04:11 Active Labs: Laboratory Tests 09/15/18 09/15/18 09/15/18 Range/Units 04:16 04:16 04:22 WBC 6.9 (5.0-10.0) 10^3/uL RBC 4.03 L (4.6-6.2) 10^6/uL Hgb 11.0 L (14.0-18.0) g/dL Hct 33.8 L (40.0-54.0) % MCV 83.9 (80-100) fL MCH 27.3 (27.0-34.0) pg MCHC 32.5 L (33.0-35.0) g/dL Plt Count 146 L (150-450) 10^3/uL Neut % (Auto) 63.3 (42.2-75.2) % Lymph % (Auto) 24.6 (20.5-50.1) % [place] % (Auto) 7.8 (2-8) % Eos % (Auto) 4.2 H (1.0-3.0) % Baso % (Auto) 0.1 (0.0-1.0) % Sodium 138 (135-145) mmol/L Potassium 3.5 L (3.6-5.0) mmol/L Chloride 106 (101-111) mmol/L Carbon Dioxide 20.0 L (21.0-31.0) mmol/L Anion Gap 15.5 BUN 52 H (7-18) mg/dL Creatinine 5.1 H (0.6-1.3) mg/dL Est Cr Clr Drug Dosing 15.79 mL/min Estimated GFR (MDRD) 12 BUN/Creatinine Ratio 10.19 Glucose 147 H (74-105) mg/dL Calcium 7.9 L (8.4-10.2) mg/dl Total Bilirubin 0.9 (0.2-1.0) mg/dL AST 21 (10-42) IU/L ALT 13 (10-60) IU/L Alkaline Phosphatase 80 (42-121) IU/L Troponin I 0.03 H* (0.00-0.02) ng/ml Total Protein 6.3 L (6.7-8.2) g/dl Albumin 3.3 (3.2-5.5) g/dl Globulin 3.0 Albumin/Globulin Ratio 1.10 Urine Color Yellow (YELLOW) Urine Appearance Clear (CLEAR) Urine pH 7.0 (5.0-9.0) Ur Specific [place] 1.015 (1.005-1.030) Urine Protein >=300 H (NEGATIVE) Urine Glucose (UA) 100 H (NEGATIVE) Urine Ketones Negative (NEGATIVE) Urine Occult Blood Negative (NEGATIVE) Urine Nitrite Negative (NEGATIVE) Urine Bilirubin Negative (NEGATIVE) Urine Urobilinogen 0.2 (0.2-1.0) mg/dL Ur Leukocyte Esterase Negative (NEGATIVE) Urine RBC 0-5 /HPF Urine WBC 0-5 (0-5/HPF) /HPF Ur Epithelial Cells Occasional /HPF Urine Bacteria Rare (0-FEW/HPF) /HPF Urine Opiates Screen (NEGATIVE) Ur Oxycodone Screen (NEGATIVE) Urine Methadone Screen (NEGATIVE) Ur Barbiturates Screen (NEGATIVE) U Tricyclic Antidepress (NEGATIVE) Ur Phencyclidine Scrn (NEGATIVE) Ur Amphetamine Screen (NEGATIVE) U Methamphetamines Scrn (NEGATIVE) Urine MDMA Screen (NEGATIVE) U Benzodiazepines Scrn (NEGATIVE) Urine Cocaine Screen (NEGATIVE) U Marijuana (THC) Screen (NEGATIVE) 09/15/18 Range/Units 04:22 WBC (5.0-10.0) 10^3/uL RBC (4.6-6.2) 10^6/uL Hgb (14.0-18.0) g/dL Hct (40.0-54.0) % MCV (80-100) fL MCH (27.0-34.0) pg MCHC (33.0-35.0) g/dL Plt Count (150-450) 10^3/uL Neut % (Auto) (42.2-75.2) % Lymph % (Auto) (20.5-50.1) % [place] % (Auto) (2-8) % Eos % (Auto) (1.0-3.0) % Baso % (Auto) (0.0-1.0) % Sodium (135-145) mmol/L Potassium (3.6-5.0) mmol/L Chloride (101-111) mmol/L Carbon Dioxide (21.0-31.0) mmol/L Anion Gap BUN (7-18) mg/dL Creatinine (0.6-1.3) mg/dL Est Cr Clr Drug Dosing mL/min Estimated GFR (MDRD) BUN/Creatinine Ratio Glucose (74-105) mg/dL Calcium (8.4-10.2) mg/dl Total Bilirubin (0.2-1.0) mg/dL AST (10-42) IU/L ALT (10-60) IU/L Alkaline Phosphatase (42-121) IU/L Troponin I (0.00-0.02) ng/ml Total Protein (6.7-8.2) g/dl Albumin (3.2-5.5) g/dl Globulin Albumin/Globulin Ratio Urine Color (YELLOW) Urine Appearance (CLEAR) Urine pH (5.0-9.0) Ur Specific [place] (1.005-1.030) Urine Protein (NEGATIVE) Urine Glucose (UA) (NEGATIVE) Urine Ketones (NEGATIVE) Urine Occult Blood (NEGATIVE) Urine Nitrite (NEGATIVE) Urine Bilirubin (NEGATIVE) Urine Urobilinogen (0.2-1.0) mg/dL Ur Leukocyte Esterase (NEGATIVE) Urine RBC /HPF Urine WBC (0-5/HPF) /HPF Ur Epithelial Cells /HPF Urine Bacteria (0-FEW/HPF) /HPF Urine Opiates Screen Positive H (NEGATIVE) Ur Oxycodone Screen Negative (NEGATIVE) Urine Methadone Screen Negative (NEGATIVE) Ur Barbiturates Screen Negative (NEGATIVE) U Tricyclic Antidepress Negative (NEGATIVE) Ur Phencyclidine Scrn Negative (NEGATIVE) Ur Amphetamine Screen Negative (NEGATIVE) U Methamphetamines Scrn Negative (NEGATIVE) Urine MDMA Screen Negative (NEGATIVE) U Benzodiazepines Scrn Negative (NEGATIVE) Urine Cocaine Screen Negative (NEGATIVE) U Marijuana (THC) Screen Negative (NEGATIVE) Departure - Departure Time of Disposition: 05:00 Disposition: Home, Self-Care 01 Condition: Fair Clinical Impression: Anxiety - Discharge Information *PRESCRIPTION DRUG MONITORING PROGRAM REVIEWED*: Yes *COPY OF PRESCRIPTION DRUG MONITORING REPORT IN PATIENT MELISSA: Yes Instructions: Panic Attack, [id number] Forms: ED Department Discharge Care Plan Goals: The patient and family were advised of the examination, lab and EKG results during the visit. The patient was encouraged to continue to take his medications as prescribed. If the patient has any additional symptoms or concerns, the patient should either return to the emergency department or visit his primary care facility. - My Orders Last 24 Hours: My Active Orders 09/15/18 04:11 EKG Documentation Completion [RC] URGENT - Assessment/Plan Last 24 Hours: My Active Orders 09/15/18 04:11 EKG Documentation Completion [RC] URGENT
[2018-09-15 04:52] LABS: ANION GAP 15.5
[2018-09-15 05:59] VITALS: BP 141/65
== END 2018-09-15 05:06 | disposition home or self-care (01) ==
LOC: DL.ED 04:00
DX: F41.9 Anxiety disorder, unspecified (principal); I13.0 Hypertensive heart and chronic kidney disease with heart failure and stage 1 through stage 4 chronic kidney disease, or unspecified chronic kidney disease; I50.9 Heart failure, unspecified; E11.22 Type 2 diabetes mellitus with diabetic chronic kidney disease; N18.9 Chronic kidney disease, unspecified; I25.10 Atherosclerotic heart disease of native coronary artery without angina pectoris; Z95.5 Presence of coronary angioplasty implant and graft; Z79.899 Other long term (current) drug therapy; Z79.82 Long term (current) use of aspirin; Z79.4 Long term (current) use of insulin
CPT/HCPCS: 36415; 80053; 80305-QW; 81001; 84484; 85025; 93005; 99283; 99284-25

== ENCOUNTER 2018-09-24 09:29 | Emergency (ER) | payer MEDICARE, OTHER ==
[2018-09-24 09:39] VITALS: BP 162/76; PULSE 56
--- NOTE | 2018-09-24 10:24 | EDM.PDOC ---
ED HPI GENERAL MEDICAL PROBLEM - General Chief Complaint: Chest Pain Stated Complaint: CHEST PAIN, HARD TO BREATHE [id number] Time Seen by Provider: 09/24/18 09:46 Source of Information: Reports: Patient, Family, RN, RN Notes Reviewed History Limitations: Reports: No Limitations - History of Present Illness INITIAL COMMENTS - FREE TEXT/NARRATIVE: Pt to ER with c/o chest pain that began last night. When asked where the chest pain is, the patient points to the epigastric area. He states the pain woke him up last night. He states he took a hydrocodone for the pain and it helped, but did not relieve the pain completely. He admits that he is more SOB than usual. He states he is on peritoneal dialysis. Denies recent illness, fever, chills, N/ V/D. He states his arms and hands have been tingly recently, and his lower legs have pain in them. Patient and also state his face is more red than usual. Pt states his face feels hot and itchy at times. Denies ever having a blood clot in the legs or lungs. States he only takes ASA at this time for blood thinner. States he took Plavix in the past after stent placement, but does not currently take. Onset: Sudden Onset Date: 09/23/18 Duration: Intermittent Location: Reports: Chest Chest Pain Score (Numeric/FACES): 3 - Related Data Allergies Allergy/AdvReac Type Severity Reaction Status Date / Time No Known Allergies Allergy Verified 09/24/18 09:39 Home Meds: Home Meds Hydrocodone/Acetaminophen [Hydrocodone-Acetaminophen 5-325] 1 tab PO TID PRN 03/25 [History] Insulin Detemir [Levemir Flexpen] 30 unit SQ BID 01/19/14 [History] Ezetimibe [Zetia] 10 mg PO DAILY 05/15/16 [History] Gabapentin [Neurontin] 300 mg PO BEDTIME 05/15/16 [History] LORazepam 1 mg PO QID PRN 05/15/16 [History] Loratadine 10 mg PO DAILY 05/15/16 [History] Terazosin HCl [Terazosin] 5 mg PO BEDTIME 05/15/16 [History] Docusate Sodium 100 mg PO BID PRN #60 capsule 12/29/16 [Rx] Isosorbide Mononitrate [Imdur] 120 mg PO BID 05/27/17 [History] Calcitriol [Rocaltrol] 0.25 mcg PO DAILY 06/12/17 [History] Calcium Citrate/Vitamin D3 [Calcium Citrate + D] 2 each PO BID 06/12/17 [History ] Carvedilol 50 mg PO BIDMEALS 06/12/17 [History] Cyanocobalamin (Vitamin B-12) [Vitamin B-12] 100 mcg PO DAILY 06/12/17 [History] Furosemide 60 mg PO DAILY 06/12/17 [History] atorvaSTATin [Lipitor] 20 mg PO BEDTIME 06/12/17 [History] hydrALAZINE [Apresoline] 150 mg PO Q8H 06/12/17 [History] metOLazone [Zaroxolyn] 2.5 mg PO .48H 06/12/17 [History] Aspirin [Halfprin] 81 mg PO DAILY 06/22/18 [History] Diltiazem HCl [Taztia Xt] 120 mg PO DAILY 06/22/18 [History] Ranitidine [Zantac] 150 mg PO BID 06/22/18 [History] Sevelamer Carbonate 800 mg PO BIDMEALS 06/22/18 [History] Insulin Lispro [HumaLOG] 0 unit SUBCUT ACBED vial 06/25/18 [Rx] Mupirocin Oint [Bactroban Oint] 1 applic TOP DAILY 09/15/18 [History] Past Medical History HEENT History: Reports: Impaired Vision Other HEENT History: WEARS CORRECTIVE LENSES; UPPER AND LOWER DENTURE PLATE Cardiovascular History: Reports: CAD, Heart Failure, High Cholesterol, Hypertension, Stents Respiratory History: Reports: Pneumonia, Recurrent, SOB, Other (See Below) Other Respiratory History: recent bronchitis Gastrointestinal History: Reports: Chronic Constipation, Colon Polyp, Gastritis , GERD Other Gastrointestinal History: gall stones Genitourinary History: Reports: BPH, Chronic Renal Insuffiency, Dialysis, Peritoneal Musculoskeletal History: Reports: Fracture Other Musculoskeletal History: missing tip of pinkie on left hand Neurological History: Reports: Headaches, Chronic, Neuropathy, Diabetic Psychiatric History: Reports: Anxiety Endocrine/Metabolic History: Reports: Diabetes, Type II Hematologic History: Reports: B12 Deficiency Immunologic History: Reports: None Oncologic (Cancer) History: Reports: None Dermatologic History: Reports: None - Infectious Disease History Infectious Disease History: Reports: None - Past Surgical History Head Surgeries/Procedures: Reports: None HEENT Surgical History: Reports: None Cardiovascular Surgical History: Reports: Coronary Artery Stent Respiratory Surgical History: Reports: None GI Surgical History: Reports: Cholecystectomy Male Surgical History: Reports: None Neurological Surgical History: Reports: None Musculoskeletal Surgical History: Reports: None Other Musculoskeletal Surgeries/Procedures:: LEFT ANKLE SURGERY Oncologic Surgical History: Reports: None Dermatological Surgical History: Reports: None Social & Family History - Family History Family Medical History: Noncontributory : Reports: Renal Disease/Insufficiency Neurological: Reports: TIA Endocrine/Metabolic: Reports: Diabetes, type II - Tobacco Use Smoking Status *Q: Former Smoker Used Tobacco, but Quit: Yes Month/Year Tobacco Last Used: ? - Caffeine Use Caffeine Use: Reports: Coffee Other Caffeine Use: states drinks decaffinated coffee Caffeine Use Comment: decaf coffee - Recreational Drug Use Recreational Drug Use: No - Living Situation & Occupation Living situation: Reports: with Family, Occupation: Employed ED ROS GENERAL - Review of Systems Review Of Systems: ROS reveals no pertinent complaints other than HPI. ED EXAM, GENERAL - Physical Exam Exam: See Below Exam Limited By: No Limitations General Appearance: Alert, WD/WN, Mild Distress Eye Exam: Bilateral Eye: EOMI, Normal Inspection Ears: Normal External Exam, Hearing Grossly Normal Nose: Normal Inspection Throat/Mouth: Normal Inspection, Normal Voice, No Airway Compromise Head: Atraumatic, Normocephalic Neck: Normal Inspection, Supple, Non-Tender, Full Range of Motion Respiratory/Chest: Decreased Breath Sounds Cardiovascular: Normal Peripheral Pulses, Regular Rate, Rhythm, No Edema, No Gallop, No JVD EKG INTERPRETATION Comparison: No Change Course - Vital Signs Last Recorded V/S: Last Vital Signs Temp 98.8 F 09/24/18 09:34 Pulse 56 L 09/24/18 09:34 Resp 12 09/24/18 09:34 BP 162/76 H 09/24/18 09:34 Pulse Ox 99 09/24/18 09:34 - Orders/Labs/Meds Orders: Active Orders 24 hr Category Date Time Status EKG Documentation Completion [RC] STAT Care 09/24/18 09:48 Active Labs: Laboratory Tests 09/24/18 09/24/18 09/24/18 Range/Units 09:56 09:56 09:56 WBC 6.3 (5.0-10.0) 10^3/uL RBC 3.89 L (4.6-6.2) 10^6/uL Hgb 10.7 L (14.0-18.0) g/dL Hct 33.2 L (40.0-54.0) % MCV 85.3 (80-100) fL MCH 27.5 (27.0-34.0) pg MCHC 32.2 L (33.0-35.0) g/dL Plt Count 138 L (150-450) 10^3/uL Neut % (Auto) 70.9 (42.2-75.2) % Lymph % (Auto) 18.2 L (20.5-50.1) % [place] % (Auto) 7.1 (2-8) % Eos % (Auto) 3.5 H (1.0-3.0) % Baso % (Auto) 0.3 (0.0-1.0) % PT 10.1 (9.0-12.0) SEC INR 1.0 (0.9-1.2) D-Dimer, Quantitative (0-400) ng/mL Sodium 139 (135-145) mmol/L Potassium 3.8 (3.6-5.0) mmol/L Chloride 109 (101-111) mmol/L Carbon Dioxide 20.0 L (21.0-31.0) mmol/L Anion Gap 13.8 BUN 38 H (7-18) mg/dL Creatinine 5.0 H (0.6-1.3) mg/dL Est Cr Clr Drug Dosing 16.11 mL/min Estimated GFR (MDRD) 12 BUN/Creatinine Ratio 7.60 Glucose 191 H (74-105) mg/dL Calcium 8.5 (8.4-10.2) mg/dl Total Bilirubin 0.6 (0.2-1.0) mg/dL AST 21 (10-42) IU/L ALT 13 (10-60) IU/L Alkaline Phosphatase 61 (42-121) IU/L Troponin I 0.02 (0.00-0.02) ng/ml B-Natriuretic Peptide 240 H (0-100) pg/ml Total Protein 6.1 L (6.7-8.2) g/dl Albumin 3.1 L (3.2-5.5) g/dl Globulin 3.0 Albumin/Globulin Ratio 1.03 09/24/18 Range/Units 09:56 WBC (5.0-10.0) 10^3/uL RBC (4.6-6.2) 10^6/uL Hgb (14.0-18.0) g/dL Hct (40.0-54.0) % MCV (80-100) fL MCH (27.0-34.0) pg MCHC (33.0-35.0) g/dL Plt Count (150-450) 10^3/uL Neut % (Auto) (42.2-75.2) % Lymph % (Auto) (20.5-50.1) % [place] % (Auto) (2-8) % Eos % (Auto) (1.0-3.0) % Baso % (Auto) (0.0-1.0) % PT (9.0-12.0) SEC INR (0.9-1.2) D-Dimer, Quantitative 316 (0-400) ng/mL Sodium (135-145) mmol/L Potassium (3.6-5.0) mmol/L Chloride (101-111) mmol/L Carbon Dioxide (21.0-31.0) mmol/L Anion Gap BUN (7-18) mg/dL Creatinine (0.6-1.3) mg/dL Est Cr Clr Drug Dosing mL/min Estimated GFR (MDRD) BUN/Creatinine Ratio Glucose (74-105) mg/dL Calcium (8.4-10.2) mg/dl Total Bilirubin (0.2-1.0) mg/dL AST (10-42) IU/L ALT (10-60) IU/L Alkaline Phosphatase (42-121) IU/L Troponin I (0.00-0.02) ng/ml B-Natriuretic Peptide (0-100) pg/ml Total Protein (6.7-8.2) g/dl Albumin (3.2-5.5) g/dl Globulin Albumin/Globulin Ratio Meds: Medications Discontinued Medications Generic Name Dose Route Start Last Admin Trade Name Freq PRN Reason Stop Dose Admin Al Hydroxide/Mg Hydroxide 30 ml 09/24/18 10:38 09/24/18 10:43 Gi Cocktail PO 09/24/18 10:39 30 ml ONETIME ONE Administration Ondansetron HCl 4 mg 09/24/18 11:01 09/24/18 11:04 Zofran Odt PO 09/24/18 11:02 4 mg ONETIME ONE Administration - Radiology Interpretation Free Text/Narrative:: Chest xray: Increased heart size and mild venous congestion See rad report - Re-Assessments/Exams Free Text/Narrative Re-Assessment/Exam: 09/24/18 11:22 Discussed patient case with Chelsea, Peritoneal Dialysis Nurse at [facility] in [place]. She was updated on the patient's labs, imaging, and condition. Her recommendation is to run PD ton, Friday, Friday, Friday, and then go back to normal schedule of every other day. Departure - Departure Time of Disposition: 11:25 Disposition: Home, Self-Care 01 Condition: Fair Clinical Impression: End stage renal disease on dialysis Acute exacerbation of CHF (congestive heart failure) Qualifiers: Heart failure type: unspecified Qualified Code(s): I50.9 - Heart failure, unspecified GERD (gastroesophageal reflux disease) Qualifiers: Esophagitis presence: esophagitis presence not specified Qualified Code(s): K21.9 - Gastro-esophageal reflux disease without esophagitis Instructions: Gastroesophageal Reflux Disease, Adult, Food Choices for Gastroesophageal Reflux Disease, Adult, [id number] Forms: ED Department Discharge Additional Instructions: Take Zantac as prescribed Do Dialysis ton, tomorrow, Friday, Friday, then back to normal schedule of every other day Follow up with your primary care facility - My Orders Last 24 Hours: My Active Orders 09/24/18 09:48 EKG Documentation Completion [RC] STAT - Assessment/Plan Last 24 Hours: My Active Orders 09/24/18 09:48 EKG Documentation Completion [RC] STAT
[2018-09-24 10:30] LABS: ANION GAP 13.8
--- NOTE | 2018-09-24 10:30 | CR ---
Clinical history: 63-year-old hypertensive, diabetic obese male with chest pain. Interpretation: Upright AP portable chest film reveals new enlargement heart (cardiomegaly) since 22 June 2018 exam. Mild venous congestion/cephalization but no alveolar edema or dependent pleural fluid accumulation. No new lung mass, hilar lymphadenopathy or focal lobar pneumonia (interval clearing "right lower lobe infiltrate" June). No atelectasis/collapse. No pneumothorax. CONCLUSION: Increased heart size and mild venous congestion. EKG? BNP? Troponin?
[2018-09-24] MEDS ORDERED: GI Cocktail Oral Solution 30 ML PO ONE (10:38)
[2018-09-24] MEDS ORDERED: Ondansetron 4 MG Tab.DIS PO ONE (11:01)
== END 2018-09-24 11:36 | disposition home or self-care (01) ==
LOC: DL.ED 09:29
DX: I13.2 Hypertensive heart and chronic kidney disease with heart failure and with stage 5 chronic kidney disease, or end stage renal disease (principal); I50.9 Heart failure, unspecified; N18.6 End stage renal disease; E11.22 Type 2 diabetes mellitus with diabetic chronic kidney disease; I25.10 Atherosclerotic heart disease of native coronary artery without angina pectoris; K21.9 Gastro-esophageal reflux disease without esophagitis; Z79.4 Long term (current) use of insulin; Z87.891 Personal history of nicotine dependence; Z99.2 Dependence on renal dialysis
CPT/HCPCS: 36415; 71045; 80053; 83880; 84484; 85025; 85379; 85610; 93005; 99285; A9270; 99284

== ENCOUNTER 2019-01-02 13:45 | Emergency (ER) | payer MEDICARE, OTHER ==
[2019-01-02 14:25] VITALS: BP 120/57; PULSE 72
[2019-01-02] MEDS ORDERED: Ketorolac 30 MG/ML SDV IVPUSH ONE (16:15)
--- NOTE | 2019-01-02 16:21 | EDM.PDOC ---
Scribed by Rivka Johansen 01/02/19 2620 for Yariel Wing PA ED HPI GENERAL MEDICAL PROBLEM - General Chief Complaint: Upper Extremity Injury/Pain Stated Complaint: FALL/LEFT ARM PAIN Time Seen by Provider: 01/02/19 16:07 Source of Information: Reports: Patient, RN, RN Notes Reviewed History Limitations: Reports: No Limitations - History of Present Illness INITIAL COMMENTS - FREE TEXT/NARRATIVE: Patient presents to ER with complaint that he fell last night at 1900 and landed on left arm. Patient complains of pain in his anterior shoulder and lateral biceps. He took 1000mg of Tylenol at 1200. Onset Date: 01/01/19 Duration: Constant Location: Reports: Upper Extremity, Left Quality: Reports: Ache Severity: Moderate Improves with: Reports: None Worsens with: Reports: None Associated Symptoms: Reports: No Other Symptoms Treatments CLIENT MANAGER: Reports: Acetaminophen Left Upper Arm Pain Score (Numeric/FACES): 6 - Related Data Allergies Allergy/AdvReac Type Severity Reaction Status Date / Time No Known Allergies Allergy Verified 01/02/19 14:25 Home Meds: Home Meds Hydrocodone/Acetaminophen [Hydrocodone-Acetaminophen 5-325] 1 tab PO TID PRN 03/25 [History] Insulin Detemir [Levemir Flexpen] 30 unit SQ BID 01/19/14 [History] Ezetimibe [Zetia] 10 mg PO DAILY 05/15/16 [History] Gabapentin [Neurontin] 300 mg PO BEDTIME 05/15/16 [History] LORazepam 1 mg PO QID PRN 05/15/16 [History] Loratadine 10 mg PO DAILY 05/15/16 [History] Terazosin HCl [Terazosin] 5 mg PO BEDTIME 05/15/16 [History] Docusate Sodium 100 mg PO BID PRN #60 capsule 12/29/16 [Rx] Isosorbide Mononitrate [Imdur] 120 mg PO BID 05/27/17 [History] Calcitriol [Rocaltrol] 0.25 mcg PO DAILY 06/12/17 [History] Calcium Citrate/Vitamin D3 [Calcium Citrate + D] 2 each PO BID 06/12/17 [History ] Carvedilol 50 mg PO BIDMEALS 06/12/17 [History] Cyanocobalamin (Vitamin B-12) [Vitamin B-12] 100 mcg PO DAILY 06/12/17 [History] Furosemide 60 mg PO DAILY 06/12/17 [History] atorvaSTATin [Lipitor] 20 mg PO BEDTIME 06/12/17 [History] hydrALAZINE [Apresoline] 150 mg PO Q8H 06/12/17 [History] metOLazone [Zaroxolyn] 2.5 mg PO .48H 06/12/17 [History] Aspirin [Halfprin] 81 mg PO DAILY 06/22/18 [History] Diltiazem HCl [Taztia Xt] 120 mg PO DAILY 06/22/18 [History] Ranitidine [Zantac] 150 mg PO BID 06/22/18 [History] Sevelamer Carbonate 800 mg PO BIDMEALS 06/22/18 [History] Insulin Lispro [HumaLOG] 0 unit SUBCUT ACBED vial 06/25/18 [Rx] Mupirocin Oint [Bactroban Oint] 1 applic TOP DAILY 09/15/18 [History] Past Medical History HEENT History: Reports: Impaired Vision Other HEENT History: WEARS CORRECTIVE LENSES; UPPER AND LOWER DENTURE PLATE Cardiovascular History: Reports: CAD, Heart Failure, High Cholesterol, Hypertension, Stents Respiratory History: Reports: Pneumonia, Recurrent, SOB, Other (See Below) Other Respiratory History: recent bronchitis Gastrointestinal History: Reports: Chronic Constipation, Colon Polyp, Gastritis , GERD Other Gastrointestinal History: gall stones Genitourinary History: Reports: BPH, Chronic Renal Insuffiency, Dialysis, Peritoneal Musculoskeletal History: Reports: Fracture Other Musculoskeletal History: missing tip of pinkie on left hand Neurological History: Reports: Headaches, Chronic, Neuropathy, Diabetic Psychiatric History: Reports: Anxiety Endocrine/Metabolic History: Reports: Diabetes, Type II Hematologic History: Reports: B12 Deficiency Immunologic History: Reports: None Oncologic (Cancer) History: Reports: None Dermatologic History: Reports: None - Infectious Disease History Infectious Disease History: Reports: None - Past Surgical History Head Surgeries/Procedures: Reports: None HEENT Surgical History: Reports: None Cardiovascular Surgical History: Reports: Coronary Artery Stent Respiratory Surgical History: Reports: None GI Surgical History: Reports: Cholecystectomy Male Surgical History: Reports: None Neurological Surgical History: Reports: None Musculoskeletal Surgical History: Reports: None Other Musculoskeletal Surgeries/Procedures:: LEFT ANKLE SURGERY Oncologic Surgical History: Reports: None Dermatological Surgical History: Reports: None Social & Family History - Family History Family Medical History: Noncontributory : Reports: Renal Disease/Insufficiency Neurological: Reports: TIA Endocrine/Metabolic: Reports: Diabetes, type II - Caffeine Use Caffeine Use: Reports: Coffee, Soda Other Caffeine Use: states drinks decaffinated coffee Caffeine Use Comment: decaf coffee - Living Situation & Occupation Living situation: Reports: with Family, Occupation: Employed Review of Systems - Review of Systems Review Of Systems: ROS reveals no pertinent complaints other than HPI. ED EXAM, GENERAL - Physical Exam Exam: See Below Exam Limited By: No Limitations General Appearance: Alert, Moderate Distress Eye Exam: Bilateral Eye: EOMI, Normal Inspection, PERRL Ears: Normal External Exam, Normal Canal, Hearing Grossly Normal, Normal TMs Nose: Normal Inspection, Normal Mucosa, No Blood Throat/Mouth: Normal Inspection, Normal Lips, Normal Teeth, Normal Gums, Normal Oropharynx, Normal Voice, No Airway Compromise Head: Atraumatic, Normocephalic Neck: Normal Inspection, Supple, Non-Tender, Full Range of Motion Respiratory/Chest: No Respiratory Distress, Lungs Clear, Normal Breath Sounds, No Accessory Muscle Use, Chest Non-Tender Cardiovascular: Normal Peripheral Pulses, Regular Rate, Rhythm, No Edema, No Gallop, No JVD, No Murmur, No Rub GI/Abdominal: Normal Bowel Sounds, Soft, Non-Tender, No Organomegaly, No Distention, No Abnormal Bruit, No Mass (Male) Exam: Deferred Rectal (Males) Exam: Deferred Back Exam: Normal Inspection, Full Range of Motion, NT Extremities: Arm Pain (left shoulder pain (anterior shoulder and lateral bicep) . The patient is able to flex his arm with some pain, but not able to raise his arm with increased pain and weakness. ) Neurological: Alert, Oriented, CN II-XII Intact, Normal Cognition, Normal Gait, Normal Reflexes, No Motor/Sensory Deficits Psychiatric: Normal Affect, Normal Mood Skin Exam: Warm, Dry, Intact, Normal Color, No Rash Lymphatic: No Adenopathy Course - Vital Signs Last Recorded V/S: Last Vital Signs Temp 36.8 C 01/02/19 14:22 Pulse 72 01/02/19 14:22 Resp 18 01/02/19 14:22 BP 120/57 L 01/02/19 14:22 Pulse Ox 98 01/02/19 14:22 - Orders/Labs/Meds Orders: Active Orders 24 hr Category Date Time Status DME for Discharge [COMM] Urgent Oth 01/02/19 16:14 Ordered Departure - Departure Time of Disposition: 16:19 Disposition: Home, Self-Care 01 Condition: Fair Clinical Impression: Left shoulder strain Qualifiers: Encounter type: initial encounter Qualified Code(s): S46.912A - Strain of unspecified muscle, fascia and tendon at shoulder and upper arm level, left arm , initial encounter - Discharge Information *PRESCRIPTION DRUG MONITORING PROGRAM REVIEWED*: Not Applicable *COPY OF PRESCRIPTION DRUG MONITORING REPORT IN PATIENT MELISSA: Not Applicable Instructions: Muscle Strain, [id number], Shoulder Pain, [id number] Forms: ED Department Discharge Care Plan Goals: The patient was advised of the examination and x-ray results during the visit. The patient was placed in a left shoulder immobilizer and given an injection of Toradol while in the ED. The patient was discharged with a script for Toradol ( 10 mg) #20 to take 1 by mouth every 6 hours. The patient should follow-up with his primary care facility in about 1 week for continued evaluation and further management. If the patient has any additional symptoms or concerns, the patient should either return to the emergency department or visit his primary care facility. - My Orders Last 24 Hours: My Active Orders 01/02/19 16:14 DME for Discharge [COMM] Urgent - Assessment/Plan Last 24 Hours: My Active Orders 01/02/19 16:14 DME for Discharge [COMM] Urgent I have read and agree with the documentation that has been completed regarding this visit. By signing this record, I attest that the documentation was completed in my physical presence and is an accurate record of the encounter.
== END 2019-01-02 16:31 | disposition home or self-care (01) ==
LOC: DL.ED 13:45
DX: S46.912A Strain of unspecified muscle, fascia and tendon at shoulder and upper arm level, left arm, initial encounter (principal); I13.10 Hypertensive heart and chronic kidney disease without heart failure, with stage 1 through stage 4 chronic kidney disease, or unspecified chronic kidney disease; E11.22 Type 2 diabetes mellitus with diabetic chronic kidney disease; N18.9 Chronic kidney disease, unspecified; I50.9 Heart failure, unspecified; I25.10 Atherosclerotic heart disease of native coronary artery without angina pectoris; E78.00 Pure hypercholesterolemia, unspecified; Z99.2 Dependence on renal dialysis; F41.9 Anxiety disorder, unspecified; Z79.4 Long term (current) use of insulin; Z79.82 Long term (current) use of aspirin; Z79.899 Other long term (current) drug therapy; W19.XXXA Unspecified fall, initial encounter
CPT/HCPCS: 73060; 96374; 99283; J1885; 29105

== ENCOUNTER 2019-05-09 11:02 | Emergency (ER) | payer MEDICARE, OTHER ==
[2019-05-09 11:09] VITALS: PULSE 63
--- NOTE | 2019-05-09 11:30 | EDM.PDOC ---
ED HPI GENERAL MEDICAL PROBLEM - General Chief Complaint: Abdominal Pain Stated Complaint: STOMACH PAINS Time Seen by Provider: 05/09/19 11:29 Source of Information: Reports: Patient, RN, RN Notes Reviewed History Limitations: Reports: No Limitations Left Upper Abdomen Pain Score (Numeric/FACES): 6 - Related Data Allergies Allergy/AdvReac Type Severity Reaction Status Date / Time No Known Allergies Allergy Verified 01/02/19 14:25 Home Meds: Home Meds Hydrocodone/Acetaminophen [Hydrocodone-Acetaminophen 5-325] 1 tab PO TID PRN 03/25 [History] Insulin Detemir [Levemir Flexpen] 30 unit SQ BID 01/19/14 [History] Ezetimibe [Zetia] 10 mg PO DAILY 05/15/16 [History] Gabapentin [Neurontin] 300 mg PO BEDTIME 05/15/16 [History] LORazepam 1 mg PO QID PRN 05/15/16 [History] Loratadine 10 mg PO DAILY 05/15/16 [History] Terazosin HCl [Terazosin] 5 mg PO BEDTIME 05/15/16 [History] Docusate Sodium 100 mg PO BID PRN #60 capsule 12/29/16 [Rx] Isosorbide Mononitrate [Imdur] 120 mg PO BID 05/27/17 [History] Calcium Citrate/Vitamin D3 [Calcium Citrate + D] 2 each PO BID 06/12/17 [History ] Cyanocobalamin (Vitamin B-12) [Vitamin B-12] 100 mcg PO DAILY 06/12/17 [History] Furosemide 60 mg PO DAILY 06/12/17 [History] atorvaSTATin [Lipitor] 20 mg PO BEDTIME 06/12/17 [History] calcitrioL [Rocaltrol] 0.25 mcg PO DAILY 06/12/17 [History] carvediloL [Carvedilol] 50 mg PO BIDMEALS 06/12/17 [History] hydrALAZINE [Apresoline] 150 mg PO Q8H 06/12/17 [History] metOLazone [Zaroxolyn] 2.5 mg PO .48H 06/12/17 [History] Aspirin [Halfprin] 81 mg PO DAILY 06/22/18 [History] Diltiazem HCl [Taztia Xt] 120 mg PO DAILY 06/22/18 [History] Ranitidine [Zantac] 150 mg PO BID 06/22/18 [History] Sevelamer Carbonate 800 mg PO BIDMEALS 06/22/18 [History] Insulin Lispro [HumaLOG] 0 unit SUBCUT ACBED vial 06/25/18 [Rx] Mupirocin Oint [Bactroban Oint] 1 applic TOP DAILY 09/15/18 [History] Past Medical History HEENT History: Reports: Impaired Vision Other HEENT History: WEARS CORRECTIVE LENSES; UPPER AND LOWER DENTURE PLATE Cardiovascular History: Reports: CAD, Heart Failure, High Cholesterol, Hypertension, Stents Respiratory History: Reports: Pneumonia, Recurrent, SOB, Other (See Below) Other Respiratory History: recent bronchitis Gastrointestinal History: Reports: Chronic Constipation, Colon Polyp, Gastritis , GERD Other Gastrointestinal History: gall stones Genitourinary History: Reports: BPH, Chronic Renal Insuffiency, Dialysis, Peritoneal Musculoskeletal History: Reports: Fracture Other Musculoskeletal History: missing tip of pinkie on left hand Neurological History: Reports: Headaches, Chronic, Neuropathy, Diabetic Psychiatric History: Reports: Anxiety Endocrine/Metabolic History: Reports: Diabetes, Type II Hematologic History: Reports: B12 Deficiency Immunologic History: Reports: None Oncologic (Cancer) History: Reports: None Dermatologic History: Reports: None - Infectious Disease History Infectious Disease History: Reports: None - Past Surgical History Head Surgeries/Procedures: Reports: None HEENT Surgical History: Reports: None Cardiovascular Surgical History: Reports: Coronary Artery Stent Respiratory Surgical History: Reports: None GI Surgical History: Reports: Cholecystectomy Male Surgical History: Reports: None Neurological Surgical History: Reports: None Musculoskeletal Surgical History: Reports: None Other Musculoskeletal Surgeries/Procedures:: LEFT ANKLE SURGERY Oncologic Surgical History: Reports: None Dermatological Surgical History: Reports: None Social & Family History - Family History Family Medical History: Noncontributory : Reports: Renal Disease/Insufficiency Neurological: Reports: TIA Endocrine/Metabolic: Reports: Diabetes, type II - Tobacco Use Smoking Status *Q: Never Smoker Second Hand Smoke Exposure: No - Caffeine Use Caffeine Use: Reports: Coffee, Soda Other Caffeine Use: states drinks decaffinated coffee Caffeine Use Comment: decaf coffee - Recreational Drug Use Recreational Drug Use: No - Living Situation & Occupation Living situation: Reports: with Family, Occupation: Employed Course - Vital Signs Last Recorded V/S: Last Vital Signs Temp 98.4 F 05/09/19 13:40 Pulse 63 05/09/19 13:40 Resp 16 05/09/19 13:40 BP 141/66 H 05/09/19 13:40 Pulse Ox 98 05/09/19 13:40 - Orders/Labs/Meds Orders: Active Orders 24 hr Category Date Time Status EKG Documentation Completion [RC] STAT Care 05/09/19 11:38 Active Enema [RC] ASDIRECTED Care 05/09/19 14:05 Active Labs: Laboratory Tests 05/09/19 05/09/19 Range/Units 11:47 11:47 WBC 6.5 (5.0-10.0) 10^3/uL RBC 3.74 L (4.6-6.2) 10^6/uL Hgb 10.1 L (14.0-18.0) g/dL Hct 30.9 L (40.0-54.0) % MCV 82.6 D (80-100) fL MCH 27.0 (27.0-34.0) pg MCHC 32.7 L (33.0-35.0) g/dL Plt Count 127 L (150-450) 10^3/uL Neut % (Auto) 73.9 (42.2-75.2) % Lymph % (Auto) 17.5 L (20.5-50.1) % [place] % (Auto) 6.0 (2-8) % Eos % (Auto) 2.3 (1.0-3.0) % Baso % (Auto) 0.3 (0.0-1.0) % Sodium 139 (135-145) mmol/L Potassium 3.9 (3.6-5.0) mmol/L Chloride 110 (101-111) mmol/L Carbon Dioxide 19.0 L (21.0-31.0) mmol/L Anion Gap 13.9 BUN 49 H (7-18) mg/dL Creatinine 4.3 H D (0.6-1.3) mg/dL Est Cr Clr Drug Dosing 18.73 mL/min Estimated GFR (MDRD) 14 BUN/Creatinine Ratio 11.39 Glucose 108 H (74-105) mg/dL Calcium 8.4 (8.4-10.2) mg/dl Total Bilirubin 0.9 (0.2-1.0) mg/dL AST 16 (10-42) IU/L ALT 14 (10-60) IU/L Alkaline Phosphatase 52 (42-121) IU/L Troponin I < 0.02 (0.00-0.02) ng/ml Total Protein 6.3 L (6.7-8.2) g/dl Albumin 3.4 (3.2-5.5) g/dl Globulin 2.9 Albumin/Globulin Ratio 1.17 Meds: Medications Discontinued Medications Generic Name Dose Route Start Last Admin Trade Name Ellen PRN Reason Stop Dose Admin Magnesium Citrate 296 ml 05/09/19 12:20 05/09/19 12:29 Citrate Of Magnesia PO 05/09/19 12:21 296 ml ONETIME ONE Administration - Radiology Interpretation Free Text/Narrative:: Abdominal flat and upright xray: FINDINGS: Gastrointestinal tract: Moderate feces is present throughout the colon. No significant distention of the large or small bowel. Intraperitoneal space: Surgical clips are noted in the right upper quadrant most likely due to prior cholecystectomy. Bones/joints: Tubing overlies the right sacrum. IMPRESSION: No acute findings. Thank you for allowing us to participate in the care of your patient. Dictated and Authenticated by: Jigar Jones MD 05/09/2019 12:11 PM Central Time ([place] & [place]) See rad report Departure - Departure Time of Disposition: 15:10 Disposition: Home, Self-Care 01 Condition: Good Clinical Impression: CKD (chronic kidney disease) stage V requiring chronic dialysis Constipation Qualifiers: Constipation type: slow transit constipation Qualified Code(s): K59.01 - Slow transit constipation - Discharge Information *PRESCRIPTION DRUG MONITORING PROGRAM REVIEWED*: No *COPY OF PRESCRIPTION DRUG MONITORING REPORT IN PATIENT MELISSA: No Instructions: High-Fiber Diet, Abdominal Pain, Adult, [id number] Referrals: PCP,None [Primary Care Provider] - Forms: ED Department Discharge Additional Instructions: May use over the counter stool softener as directed for constipation Follow up with Dialysis if any further problems Return to the ER with any worsening of symptoms Sepsis Event Note - Evaluation Sepsis Screening Result: No Definite Risk - Focused Exam Vital Signs: Vital Signs Temp Pulse Resp BP BP Pulse Ox 05/09/19 13:40 98.4 F 63 16 141/66 H 98 05/09/19 11:05 98.8 F 63 18 152/71 H 98 Date Exam was Performed: 05/09/19 Time Exam was Performed: 17:23 - My Orders Last 24 Hours: My Active Orders 05/09/19 11:38 EKG Documentation Completion [RC] STAT 05/09/19 14:05 Enema [RC] ASDIRECTED - Assessment/Plan Last 24 Hours: My Active Orders 05/09/19 11:38 EKG Documentation Completion [RC] STAT 05/09/19 14:05 Enema [RC] ASDIRECTED
[2019-05-09 12:12] LABS: ANION GAP 13.9; CHLORIDE,CL 110 mmol/L (101-111); SODIUM,NA 139 mmol/L (135-145)
[2019-05-09] MEDS ORDERED: Magnesium Citrate Solution 296 ML Bottle PO ONE (12:20)
[2019-05-09 13:41] VITALS: BP 141/66
== END 2019-05-09 15:15 | disposition home or self-care (01) ==
LOC: DL.ED 11:02
DX: K59.01 Slow transit constipation (principal); E11.40 Type 2 diabetes mellitus with diabetic neuropathy, unspecified; E11.22 Type 2 diabetes mellitus with diabetic chronic kidney disease; I13.2 Hypertensive heart and chronic kidney disease with heart failure and with stage 5 chronic kidney disease, or end stage renal disease; N18.5 Chronic kidney disease, stage 5; I50.9 Heart failure, unspecified; E78.00 Pure hypercholesterolemia, unspecified; I25.10 Atherosclerotic heart disease of native coronary artery without angina pectoris; Z99.2 Dependence on renal dialysis; Z95.5 Presence of coronary angioplasty implant and graft; Z79.899 Other long term (current) drug therapy; Z79.4 Long term (current) use of insulin
CPT/HCPCS: 36415; 74019; 80053; 84484; 85025; 93005; 99284; A9270

== ENCOUNTER 2019-07-01 12:37 | Emergency (ER) | payer MEDICARE, OTHER ==
--- NOTE | 2019-07-01 13:52 | EDM.PDOC ---
ED HPI GENERAL MEDICAL PROBLEM - General Chief Complaint: Neuro Symptoms/Deficits Stated Complaint: FEELS NUMB Time Seen by Provider: 07/01/19 13:35 Source of Information: Reports: Patient History Limitations: Reports: No Limitations - History of Present Illness INITIAL COMMENTS - FREE TEXT/NARRATIVE: This 64 yo female patient reports to the ED with 2 different issues. First of all, the patient reports he had some chest pain this morning that seemed to be in the center of his chest (similar to previous episodes of GERD). Secondly, the patient reports he noticed increased numbness in his upper extremities this morning. The patient reports he woke up with some tightness in his left posterior neck and then noticed the numbness in his upper extremities. The patient has a history of a previous cardiac event, GERD and peripheral neuropathy. Onset: Today Onset Date: 07/01/19 Onset Time: 09:30 Duration: Constant (upper extremities), Improving (chest burning) Location: Reports: Chest, Upper Extremity, Left, Upper Extremity, Right Quality: Reports: Burning Severity: Moderate Improves with: Reports: None Worsens with: Reports: None Associated Symptoms: Reports: No Other Symptoms - Related Data Allergies Allergy/AdvReac Type Severity Reaction Status Date / Time No Known Allergies Allergy Verified 07/01/19 13:08 Home Meds: Home Meds Hydrocodone/Acetaminophen [Hydrocodone-Acetaminophen 5-325] 1 tab PO TID PRN 03/25 [History] Insulin Detemir [Levemir Flexpen] 30 unit SQ BID 01/19/14 [History] Ezetimibe [Zetia] 10 mg PO DAILY 05/15/16 [History] Gabapentin [Neurontin] 300 mg PO BEDTIME 05/15/16 [History] LORazepam 1 mg PO QID PRN 05/15/16 [History] Loratadine 10 mg PO DAILY 05/15/16 [History] Terazosin HCl [Terazosin] 5 mg PO BEDTIME 05/15/16 [History] Docusate Sodium 100 mg PO BID PRN #60 capsule 12/29/16 [Rx] Isosorbide Mononitrate [Imdur] 120 mg PO BID 05/27/17 [History] Calcium Citrate/Vitamin D3 [Calcium Citrate + D] 2 each PO BID 06/12/17 [History ] Cyanocobalamin (Vitamin B-12) [Vitamin B-12] 100 mcg PO DAILY 06/12/17 [History] Furosemide 60 mg PO DAILY 06/12/17 [History] atorvaSTATin [Lipitor] 20 mg PO BEDTIME 06/12/17 [History] calcitrioL [Rocaltrol] 0.25 mcg PO DAILY 06/12/17 [History] carvediloL [Carvedilol] 50 mg PO BIDMEALS 06/12/17 [History] hydrALAZINE [Apresoline] 150 mg PO Q8H 06/12/17 [History] metOLazone [Zaroxolyn] 2.5 mg PO .48H 06/12/17 [History] Aspirin [Halfprin] 81 mg PO DAILY 06/22/18 [History] Diltiazem HCl [Taztia Xt] 120 mg PO DAILY 06/22/18 [History] Ranitidine [Zantac] 150 mg PO BID 06/22/18 [History] Sevelamer Carbonate 800 mg PO BIDMEALS 06/22/18 [History] Insulin Lispro [HumaLOG] 0 unit SUBCUT ACBED vial 06/25/18 [Rx] Mupirocin Oint [Bactroban Oint] 1 applic TOP DAILY 09/15/18 [History] Past Medical History HEENT History: Reports: Impaired Vision Other HEENT History: WEARS CORRECTIVE LENSES; UPPER AND LOWER DENTURE PLATE Cardiovascular History: Reports: CAD, Heart Failure, High Cholesterol, Hypertension, Stents Respiratory History: Reports: Pneumonia, Recurrent, SOB, Other (See Below) Other Respiratory History: recent bronchitis Gastrointestinal History: Reports: Chronic Constipation, Colon Polyp, Gastritis , GERD Other Gastrointestinal History: gall stones Genitourinary History: Reports: BPH, Chronic Renal Insuffiency, Dialysis, Peritoneal Musculoskeletal History: Reports: Fracture Other Musculoskeletal History: missing tip of pinkie on left hand Neurological History: Reports: Headaches, Chronic, Neuropathy, Diabetic Psychiatric History: Reports: Anxiety Endocrine/Metabolic History: Reports: Diabetes, Type II Hematologic History: Reports: B12 Deficiency Immunologic History: Reports: None Oncologic (Cancer) History: Reports: None Dermatologic History: Reports: None - Infectious Disease History Infectious Disease History: Reports: None - Past Surgical History Head Surgeries/Procedures: Reports: None HEENT Surgical History: Reports: None Cardiovascular Surgical History: Reports: Coronary Artery Stent Respiratory Surgical History: Reports: None GI Surgical History: Reports: Cholecystectomy Male Surgical History: Reports: None Neurological Surgical History: Reports: None Musculoskeletal Surgical History: Reports: None Other Musculoskeletal Surgeries/Procedures:: LEFT ANKLE SURGERY Oncologic Surgical History: Reports: None Dermatological Surgical History: Reports: None Social & Family History - Family History Family Medical History: Noncontributory : Reports: Renal Disease/Insufficiency Neurological: Reports: TIA Endocrine/Metabolic: Reports: Diabetes, type II - Caffeine Use Caffeine Use: Reports: Coffee, Soda Other Caffeine Use: states drinks decaffinated coffee Caffeine Use Comment: decaf coffee - Living Situation & Occupation Living situation: Reports: with Family, Occupation: Employed ED ROS GENERAL - Review of Systems Review Of Systems: Comprehensive ROS is negative, except as noted in HPI. ED EXAM, GENERAL - Physical Exam Exam: See Below Exam Limited By: No Limitations General Appearance: Alert, WD/WN, Moderate Distress, Obese Eye Exam: Bilateral Eye: EOMI, Normal Inspection, PERRL Ears: Normal External Exam, Normal Canal, Hearing Grossly Normal, Normal TMs Nose: Normal Inspection, Normal Mucosa, No Blood Throat/Mouth: Normal Inspection, Normal Lips, Normal Teeth, Normal Gums, Normal Oropharynx, Normal Voice, No Airway Compromise Head: Atraumatic, Normocephalic Neck: Normal Inspection, Supple, Non-Tender, Full Range of Motion Respiratory/Chest: No Respiratory Distress, Lungs Clear, Normal Breath Sounds, No Accessory Muscle Use, Chest Non-Tender Cardiovascular: Normal Peripheral Pulses, Regular Rate, Rhythm, No Edema, No Gallop, No JVD, No Murmur, No Rub GI/Abdominal: Normal Bowel Sounds, Soft, Non-Tender, No Organomegaly, No Distention, No Abnormal Bruit, No Mass (Male) Exam: Deferred Rectal (Males) Exam: Deferred Back Exam: Normal Inspection, Full Range of Motion, NT Extremities: Normal Inspection, Normal Range of Motion, Non-Tender, Normal Capillary Refill, No Pedal Edema Neurological: Alert Psychiatric: Normal Affect, Normal Mood Skin Exam: Warm, Dry, Intact, Normal Color, No Rash Lymphatic: No Adenopathy Course - Vital Signs Last Recorded V/S: Last Vital Signs Temp 36.7 C 07/01/19 13:00 Pulse 56 L 07/01/19 13:00 Resp 16 07/01/19 13:00 BP 160/77 H 07/01/19 13:00 Pulse Ox 97 07/01/19 13:00 - Orders/Labs/Meds Orders: Active Orders 24 hr Category Date Time Status EKG Documentation Completion [RC] URGENT Care 07/01/19 13:47 Ordered Labs: Laboratory Tests 07/01/19 07/01/19 Range/Units 14:00 14:00 WBC 7.6 (5.0-10.0) 10^3/uL RBC 4.07 L (4.6-6.2) 10^6/uL Hgb 11.0 L (14.0-18.0) g/dL Hct 33.4 L (40.0-54.0) % MCV 82.1 (80-100) fL MCH 27.0 (27.0-34.0) pg MCHC 32.9 L (33.0-35.0) g/dL Plt Count 166 (150-450) 10^3/uL Neut % (Auto) 73.3 (42.2-75.2) % Lymph % (Auto) 18.1 L (20.5-50.1) % [place] % (Auto) 6.4 (2-8) % Eos % (Auto) 1.9 (1.0-3.0) % Baso % (Auto) 0.3 (0.0-1.0) % Sodium 140 (135-145) mmol/L Potassium 4.1 (3.6-5.0) mmol/L Chloride 112 H (101-111) mmol/L Carbon Dioxide 19.0 L (21.0-31.0) mmol/L Anion Gap 13.1 BUN 42 H (7-18) mg/dL Creatinine 4.6 H (0.6-1.3) mg/dL Est Cr Clr Drug Dosing 17.28 mL/min Estimated GFR (MDRD) 13 BUN/Creatinine Ratio 9.13 Glucose 118 H (74-105) mg/dL Calcium 8.7 (8.4-10.2) mg/dl Total Bilirubin 0.7 (0.2-1.0) mg/dL AST 16 (10-42) IU/L ALT 12 (10-60) IU/L Alkaline Phosphatase 66 (42-121) IU/L Troponin I 0.03 H* (0.00-0.02) ng/ml Total Protein 6.4 L (6.7-8.2) g/dl Albumin 3.3 (3.2-5.5) g/dl Globulin 3.1 Albumin/Globulin Ratio 1.06 Departure - Departure Time of Disposition: 15:31 Disposition: Home, Self-Care 01 Condition: Fair Clinical Impression: Peripheral neuropathy Qualifiers: Peripheral neuropathy type: idiopathic neuropathy, unspecified Qualified Code(s ): G60.9 - Hereditary and idiopathic neuropathy, unspecified GERD (gastroesophageal reflux disease) Qualifiers: Esophagitis presence: esophagitis presence not specified Qualified Code(s): K21.9 - Gastro-esophageal reflux disease without esophagitis - Discharge Information Forms: ED Department Discharge Care Plan Goals: The patient and family were advised of the examination, lab and EKG results during the visit. The patient was encouraged to continue to take his medications as prescribed. The patient should follow-up with his primary care facility for continued evaluation and further management. If the patient has any additional symptoms or concerns, the patient should either return to the emergency department or visit his primary care facility. Sepsis Event Note - Focused Exam Vital Signs: Vital Signs Temp Pulse Resp BP Pulse Ox 07/01/19 13:00 36.7 C 56 L 16 160/77 H 97 Date Exam was Performed: 07/01/19 Time Exam was Performed: 15:30 - My Orders Last 24 Hours: My Active Orders 07/01/19 13:47 EKG Documentation Completion [RC] URGENT - Assessment/Plan Last 24 Hours: My Active Orders 07/01/19 13:47 EKG Documentation Completion [RC] URGENT
[2019-07-01 13:58] VITALS: BP 160/77; PULSE 56
[2019-07-01 14:30] LABS: ANION GAP 13.1
== END 2019-07-01 15:40 | disposition home or self-care (01) ==
LOC: DL.ED 12:37
DX: K21.9 Gastro-esophageal reflux disease without esophagitis (principal); E11.42 Type 2 diabetes mellitus with diabetic polyneuropathy; G60.9 Hereditary and idiopathic neuropathy, unspecified; I25.10 Atherosclerotic heart disease of native coronary artery without angina pectoris; E78.00 Pure hypercholesterolemia, unspecified; I11.0 Hypertensive heart disease with heart failure; I50.9 Heart failure, unspecified; F41.9 Anxiety disorder, unspecified; Z79.4 Long term (current) use of insulin; Z79.899 Other long term (current) drug therapy; Z79.82 Long term (current) use of aspirin
CPT/HCPCS: 36415; 80053; 84484; 85025; 93005; 99284; 99285-25

== ENCOUNTER 2019-07-18 14:36 | Emergency (ER) | payer MEDICARE, OTHER ==
[2019-07-18 14:53] VITALS: BP 150/78; PULSE 55
--- NOTE | 2019-07-18 15:07 | EDM.PDOC ---
ED HPI GENERAL MEDICAL PROBLEM - General Stated Complaint: AMB Time Seen by Provider: 07/18/19 15:03 Source of Information: Reports: Patient History Limitations: Reports: No Limitations - History of Present Illness INITIAL COMMENTS - FREE TEXT/NARRATIVE: states slipped on ice and hit his head, ??LOC, got back up by self and crawled back into house and grandson called EMS. c/o pain right shoulder most but also right forehead area. Right Shoulder Pain Score (Numeric/FACES): 7 - Related Data Allergies Allergy/AdvReac Type Severity Reaction Status Date / Time No Known Allergies Allergy Verified 07/18/19 14:53 Home Meds: Home Meds Hydrocodone/Acetaminophen [Hydrocodone-Acetaminophen 5-325] 1 tab PO TID PRN 03/25 [History] Insulin Detemir [Levemir Flexpen] 25 unit SQ BID 01/19/14 [History] Ezetimibe [Zetia] 10 mg PO DAILY 05/15/16 [History] Gabapentin [Neurontin] 300 mg PO BEDTIME 05/15/16 [History] LORazepam 1 mg PO QID PRN 05/15/16 [History] Loratadine 10 mg PO DAILY 05/15/16 [History] Terazosin HCl [Terazosin] 5 mg PO BEDTIME 05/15/16 [History] Docusate Sodium 100 mg PO BID PRN #60 capsule 12/29/16 [Rx] Isosorbide Mononitrate [Imdur] 120 mg PO BID 05/27/17 [History] Calcium Citrate/Vitamin D3 [Calcium Citrate + D] 2 each PO BID 06/12/17 [History ] Cyanocobalamin (Vitamin B-12) [Vitamin B-12] 100 mcg PO DAILY 06/12/17 [History] Furosemide 60 mg PO DAILY 06/12/17 [History] atorvaSTATin [Lipitor] 20 mg PO BEDTIME 06/12/17 [History] calcitrioL [Rocaltrol] 0.25 mcg PO DAILY 06/12/17 [History] carvediloL [Carvedilol] 50 mg PO BIDMEALS 06/12/17 [History] hydrALAZINE [Apresoline] 150 mg PO Q8H 06/12/17 [History] metOLazone [Zaroxolyn] 2.5 mg PO .48H 06/12/17 [History] Aspirin [Halfprin] 81 mg PO DAILY 06/22/18 [History] Diltiazem HCl [Taztia Xt] 120 mg PO DAILY 06/22/18 [History] Ranitidine [Zantac] 150 mg PO BID 06/22/18 [History] Sevelamer Carbonate 800 mg PO BIDMEALS 06/22/18 [History] Insulin Lispro [HumaLOG] 0 unit SUBCUT ACBED vial 06/25/18 [Rx] Mupirocin Oint [Bactroban Oint] 1 applic TOP DAILY 09/15/18 [History] Past Medical History HEENT History: Reports: Impaired Vision Other HEENT History: WEARS CORRECTIVE LENSES; UPPER AND LOWER DENTURE PLATE Cardiovascular History: Reports: CAD, Heart Failure, High Cholesterol, Hypertension, Stents Respiratory History: Reports: Pneumonia, Recurrent, SOB, Other (See Below) Other Respiratory History: recent bronchitis Gastrointestinal History: Reports: Chronic Constipation, Colon Polyp, Gastritis , GERD Other Gastrointestinal History: gall stones Genitourinary History: Reports: BPH, Chronic Renal Insuffiency, Dialysis, Peritoneal Musculoskeletal History: Reports: Fracture Other Musculoskeletal History: missing tip of pinkie on left hand Neurological History: Reports: Headaches, Chronic, Neuropathy, Diabetic Psychiatric History: Reports: Anxiety Endocrine/Metabolic History: Reports: Diabetes, Type II Hematologic History: Reports: B12 Deficiency Immunologic History: Reports: None Oncologic (Cancer) History: Reports: None Dermatologic History: Reports: None - Infectious Disease History Infectious Disease History: Reports: None - Past Surgical History Head Surgeries/Procedures: Reports: None HEENT Surgical History: Reports: None Cardiovascular Surgical History: Reports: Coronary Artery Stent Respiratory Surgical History: Reports: None GI Surgical History: Reports: Cholecystectomy Male Surgical History: Reports: None Neurological Surgical History: Reports: None Musculoskeletal Surgical History: Reports: None Other Musculoskeletal Surgeries/Procedures:: LEFT ANKLE SURGERY Oncologic Surgical History: Reports: None Dermatological Surgical History: Reports: None Social & Family History - Family History Family Medical History: Noncontributory : Reports: Renal Disease/Insufficiency Neurological: Reports: TIA Endocrine/Metabolic: Reports: Diabetes, type II - Caffeine Use Caffeine Use: Reports: Coffee, Soda Other Caffeine Use: states drinks decaffinated coffee Caffeine Use Comment: decaf coffee - Living Situation & Occupation Living situation: Reports: with Family, Occupation: Employed ED ROS GENERAL - Review of Systems Review Of Systems: Comprehensive ROS is negative, except as noted in HPI. ED EXAM, HEAD INJURY - Physical Exam Exam: See Below Exam Limited By: No Limitations General Appearance: Alert, WD/WN, Mild Distress, Other (discomfort) Head: Other (right forehead contusion). No: Noonan's Sign, Raccoon Eyes Nexus Criteria: No: Posterior, Midline Cervical Tenderness, Evidence of Intoxication, Altered Level of Consciousness, Focal Neurological Deficit, Painful Distraction Injuries Eyes: Bilateral Eye: PERRL (pupils ER @ 4mm) Ears: Hearing Grossly Normal Nose: Normal Inspection Throat/Mouth: Normal Voice, No Airway Compromise Neck: Non-Tender, Full Range of Motion Respiratory: No Respiratory Distress Cardiovascular: Regular Rate, Rhythm GI/Abdominal Exam: Soft, Non-Tender Extremities: Limited Range of Motion, Other (right rotator cuff tender R/P, NV wnl) Neurologic: No Motor/Sensory Deficits, Alert, Normal Mood/Affect, Oriented x 3 Skin: Normal Color, Warm/Dry - [place] Coma Score Best Eye Response ([place]): (4) Open Spontaneously Best Verbal Response ([place]): (5) Oriented Best Motor Response ([place]): (6) Obeys Commands [place] Total: 15 Course - Vital Signs Last Recorded V/S: Last Vital Signs Temp 36.7 C 07/18/19 14:47 Pulse 55 L 07/18/19 14:47 Resp 18 07/18/19 14:47 BP 150/78 H 07/18/19 14:47 Pulse Ox 96 07/18/19 14:47 - Orders/Labs/Meds Orders: Active Orders 24 hr Category Date Time Status Cervical Spine wo Cont [CT] Urgent Exams 07/18/19 15:08 Taken Head wo Cont [CT] Urgent Exams 07/18/19 15:07 Taken Shoulder Comp Rt [CR] Urgent Exams 07/18/19 15:08 Taken Meds: Medications Discontinued Medications Generic Name Dose Route Start Last Admin Trade Name Freq PRN Reason Stop Dose Admin Hydrocodone Bitart/Acetaminophen 1 tab 07/18/19 16:13 Bastian 325-10 Mg PO 07/18/19 16:14 ONETIME ONE - Re-Assessments/Exams Free Text/Narrative Re-Assessment/Exam: 07/18/19 16:14 results discussed with pt & family. pt no c/o except for discomfort. Departure - Departure Time of Disposition: 16:15 Disposition: Home, Self-Care 01 Condition: Good Clinical Impression: Traumatic hematoma of forehead Qualifiers: Encounter type: initial encounter Qualified Code(s): S00.83XA - Contusion of other part of head, initial encounter Rotator cuff injury Qualifiers: Encounter type: initial encounter Laterality: right Qualified Code(s): S46.001A - Unspecified injury of muscle(s) and tendon(s) of the rotator cuff of right shoulder, initial encounter - Discharge Information Instructions: Head Injury, Adult, [id number] Forms: ED Department Discharge Additional Instructions: 1) ice to swelling on head 2) wear sling for comfort 3) see clinic tomorrow for MRI SCAN right shoulder rotator cuff injury 4) recheck as needed rx given; vicodin 5/325mg bid prn x 6 Sepsis Event Note - Evaluation Sepsis Screening Result: No Definite Risk - Focused Exam Vital Signs: Vital Signs Temp Pulse Resp BP Pulse Ox 07/18/19 14:47 36.7 C 55 L 18 150/78 H 96 Date Exam was Performed: 07/18/19 Time Exam was Performed: 16:14 - My Orders Last 24 Hours: My Active Orders 07/18/19 15:07 Head wo Cont [CT] Urgent 07/18/19 15:08 Cervical Spine wo Cont [CT] Urgent Shoulder Comp Rt [CR] Urgent - Assessment/Plan Last 24 Hours: My Active Orders 07/18/19 15:07 Head wo Cont [CT] Urgent 07/18/19 15:08 Cervical Spine wo Cont [CT] Urgent Shoulder Comp Rt [CR] Urgent
[2019-07-18] MEDS ORDERED: Acetaminophen/HYDROcodone 325-10 MG Tab PO ONE (16:13)
== END 2019-07-18 16:35 | disposition home or self-care (01) ==
LOC: DL.ED 14:36
DX: S46.001A Unspecified injury of muscle(s) and tendon(s) of the rotator cuff of right shoulder, initial encounter (principal); S00.83XA Contusion of other part of head, initial encounter; E78.00 Pure hypercholesterolemia, unspecified; I25.10 Atherosclerotic heart disease of native coronary artery without angina pectoris; I13.0 Hypertensive heart and chronic kidney disease with heart failure and stage 1 through stage 4 chronic kidney disease, or unspecified chronic kidney disease; N18.9 Chronic kidney disease, unspecified; I50.9 Heart failure, unspecified; E11.40 Type 2 diabetes mellitus with diabetic neuropathy, unspecified; F41.9 Anxiety disorder, unspecified; K21.9 Gastro-esophageal reflux disease without esophagitis; Z79.4 Long term (current) use of insulin; Z79.899 Other long term (current) drug therapy; Z95.5 Presence of coronary angioplasty implant and graft; W01.10XA Fall on same level from slipping, tripping and stumbling with subsequent striking against unspecified object, initial encounter
CPT/HCPCS: 70450; 72125; 73030; 99284; A9270; 99283

== ENCOUNTER 2019-10-29 17:13 | Emergency (ER) | payer MEDICARE, OTHER ==
[2019-10-29 17:30] VITALS: BP 133/55; PULSE 58
--- NOTE | 2019-10-29 17:37 | EDM.PDOC ---
ED HPI GENERAL MEDICAL PROBLEM - General Stated Complaint: WEAKNESS/TINGLING Time Seen by Provider: 10/29/19 17:25 Source of Information: Reports: Patient History Limitations: Reports: No Limitations - History of Present Illness INITIAL COMMENTS - FREE TEXT/NARRATIVE: This 64 yo male patient reports to the ED due to left upper extremity weakness. The patient reports he was in town when he noticed that he did not have any strength in his left hand and his left arm was "jumping". The patient reports no similar symptoms in the past. The patient came directly to the ED. The patient did walk into the ED with a normal gait using his cane with his left hand. The patient reports no recent falls or injuries. The patient reports he has been mowing lawns over the past several days which is normal for him. Onset: Today Duration: Minutes: Location: Reports: Upper Extremity, Left Quality: Reports: Other (weakness) Severity: Moderate Improves with: Reports: None Worsens with: Reports: None Context: Reports: Other Associated Symptoms: Reports: No Other Symptoms - Related Data Allergies Allergy/AdvReac Type Severity Reaction Status Date / Time No Known Allergies Allergy Verified 10/29/19 17:26 Home Meds: Home Meds Hydrocodone/Acetaminophen [Hydrocodone-Acetaminophen 5-325] 1 tab PO TID PRN 12/20/13 [History] Insulin Detemir [Levemir Flexpen] 25 unit SQ BID 01/19/14 [History] Ezetimibe [Zetia] 10 mg PO DAILY 05/15/16 [History] Gabapentin [Neurontin] 300 mg PO BEDTIME 05/15/16 [History] LORazepam 1 mg PO QID PRN 05/15/16 [History] Loratadine 10 mg PO DAILY 05/15/16 [History] Terazosin HCl [Terazosin] 5 mg PO BEDTIME 05/15/16 [History] Docusate Sodium 100 mg PO BID PRN #60 capsule 12/29/16 [Rx] Isosorbide Mononitrate [Imdur] 120 mg PO BID 05/27/17 [History] Calcium Citrate/Vitamin D3 [Calcium Citrate + D] 2 each PO BID 06/12/17 [History] Cyanocobalamin (Vitamin B-12) [Vitamin B-12] 100 mcg PO DAILY 06/12/17 [History] Furosemide 60 mg PO DAILY 06/12/17 [History] atorvaSTATin [Lipitor] 20 mg PO BEDTIME 06/12/17 [History] calcitrioL [Rocaltrol] 0.25 mcg PO DAILY 06/12/17 [History] carvediloL [Carvedilol] 50 mg PO BIDMEALS 06/12/17 [History] hydrALAZINE [Apresoline] 150 mg PO Q8H 06/12/17 [History] metOLazone [Zaroxolyn] 2.5 mg PO .48H 06/12/17 [History] Aspirin [Halfprin] 81 mg PO DAILY 06/22/18 [History] Ranitidine [Zantac] 150 mg PO BID 06/22/18 [History] Sevelamer Carbonate 800 mg PO BIDMEALS 06/22/18 [History] dilTIAZem HCL [Taztia Xt] 120 mg PO DAILY 06/22/18 [History] Insulin Lispro [HumaLOG] 0 unit SUBCUT ACBED vial 06/25/18 [Rx] Mupirocin Oint [Bactroban Oint] 1 applic TOP DAILY 09/15/18 [History] Past Medical History HEENT History: Reports: Impaired Vision Other HEENT History: WEARS CORRECTIVE LENSES; UPPER AND LOWER DENTURE PLATE Cardiovascular History: Reports: CAD, Heart Failure, High Cholesterol, Hypertension, Stents Respiratory History: Reports: Pneumonia, Recurrent, SOB, Other (See Below) Other Respiratory History: recent bronchitis Gastrointestinal History: Reports: Chronic Constipation, Colon Polyp, Gastritis, GERD Other Gastrointestinal History: gall stones Genitourinary History: Reports: BPH, Chronic Renal Insuffiency, Dialysis, Peritoneal Musculoskeletal History: Reports: Fracture Other Musculoskeletal History: missing tip of pinkie on left hand Neurological History: Reports: Headaches, Chronic, Neuropathy, Diabetic Psychiatric History: Reports: Anxiety Endocrine/Metabolic History: Reports: Diabetes, Type II Hematologic History: Reports: B12 Deficiency Immunologic History: Reports: None Oncologic (Cancer) History: Reports: None Dermatologic History: Reports: None - Infectious Disease History Infectious Disease History: Reports: None - Past Surgical History Head Surgeries/Procedures: Reports: None HEENT Surgical History: Reports: None Cardiovascular Surgical History: Reports: Coronary Artery Stent Respiratory Surgical History: Reports: None GI Surgical History: Reports: Cholecystectomy Male Surgical History: Reports: None Neurological Surgical History: Reports: None Musculoskeletal Surgical History: Reports: None Other Musculoskeletal Surgeries/Procedures:: LEFT ANKLE SURGERY Oncologic Surgical History: Reports: None Dermatological Surgical History: Reports: None Social & Family History - Family History Family Medical History: Noncontributory : Reports: Renal Disease/Insufficiency Neurological: Reports: TIA Endocrine/Metabolic: Reports: Diabetes, type II - Tobacco Use Smoking Status *Q: Never Smoker - Caffeine Use Caffeine Use: Reports: Coffee, Soda Other Caffeine Use: states drinks decaffinated coffee Caffeine Use Comment: decaf coffee - Recreational Drug Use Recreational Drug Use: No - Living Situation & Occupation Living situation: Reports: with Family, Occupation: Employed ED ROS GENERAL - Review of Systems Review Of Systems: Comprehensive ROS is negative, except as noted in HPI. ED EXAM, NEURO - Physical Exam Exam: See Below Exam Limited By: No Limitations General Appearance: Alert, WD/WN, Mild Distress Eye Exam: Bilateral Eye: EOMI, Normal Inspection, PERRL Ears: Normal External Exam, Normal Canal, Hearing Grossly Normal, Normal TMs Nose: Normal Inspection, Normal Mucosa, No Blood Throat/Mouth: Normal Inspection, Normal Lips, Normal Teeth, Normal Gums, Normal Oropharynx, Normal Voice, No Airway Compromise Head Exam: Atraumatic, Normocephalic Neck: Normal Inspection, Supple, Non-Tender, Full Range of Motion Respiratory/Chest: No Respiratory Distress, Lungs Clear, Normal Breath Sounds, No Accessory Muscle Use, Chest Non-Tender Cardiovascular: Normal Peripheral Pulses, Regular Rate, Rhythm, No Edema, No Gallop, No JVD, No Murmur, No Rub GI/Abdominal: Normal Bowel Sounds, Soft, Non-Tender, No Organomegaly, No Distention, No Abnormal Bruit, No Mass (Male) Exam: Deferred Rectal (Males) Exam: Deferred Neurological: Alert, Normal Mood/Affect, Normal Dorsiflexion, CN II-XII Intact, Normal Plantar Flexion, Normal Gait, Normal Reflexes, Oriented x 3, Other (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.) Back Exam: Normal Inspection, Full Range of Motion, NT Extremities: Non-Tender, No Pedal Edema, Normal Capillary Refill, Other (reduced student development dean strength on his left) Psychiatric: Normal Affect, Normal Mood Skin Exam: Warm, Dry, Intact, Normal Color, No Rash Course - Vital Signs Last Recorded V/S: Last Vital Signs Temp 36.8 C 10/29/19 17:26 Pulse 58 L 10/29/19 17:26 Resp 16 10/29/19 17:26 BP 133/55 L 10/29/19 17:26 Pulse Ox 97 10/29/19 17:26 - Orders/Labs/Meds Orders: Active Orders 24 hr Category Date Time Status EKG Documentation Completion [RC] STAT Care 10/29/19 17:21 Active Labs: Laboratory Tests 10/29/19 10/29/19 10/29/19 Range/Units 17:25 17:25 17:25 WBC 6.8 (5.0-10.0) 10^3/uL RBC 3.49 L (4.6-6.2) 10^6/uL Hgb 9.6 L (14.0-18.0) g/dL Hct 30.6 L (40.0-54.0) % MCV 87.7 D (80-100) fL MCH 27.5 (27.0-34.0) pg MCHC 31.4 L (33.0-35.0) g/dL Plt Count 146 L (150-450) 10^3/uL Neut % (Auto) 71.6 (42.2-75.2) % Lymph % (Auto) 18.9 L (20.5-50.1) % [place] % (Auto) 6.6 (2-8) % Eos % (Auto) 2.5 (1.0-3.0) % Baso % (Auto) 0.4 (0.0-1.0) % Sodium 144 (136-145) mmol/L Potassium 4.0 (3.5-5.1) mmol/L Chloride 107 (98-107) mmol/L Carbon Dioxide 24 (21-32) mmol/L Anion Gap 17.0 H (7-13) mEq/L BUN 58 H (7-18) mg/dL Creatinine 6.68 H* (0.70-1.30) mg/dL Est Cr Clr Drug Dosing 11.90 mL/min Estimated GFR (MDRD) 8 BUN/Creatinine Ratio 8.7 (No establ ref range) Glucose 150 H (74-99) mg/dL POC Glucose (70-105) mg/dl Lactic Acid 0.7 (0.4-2.0) mmol/L Calcium 7.9 L (8.5-10.1) mg/dL Total Bilirubin 0.4 (0.2-1.0) mg/dL AST 13 L (15-37) U/L ALT 16 (16-63) U/L Alkaline Phosphatase 90 (46-116) U/L Troponin I 0.042 (0.000-0.056) ng/mL Total Protein 6.0 L (6.4-8.2) g/dL Albumin 2.9 L (3.4-5.0) g/dL Globulin 3.1 Albumin/Globulin Ratio 0.94 /19/20 Range/Units 17:25 WBC (5.0-10.0) 10^3/uL RBC (4.6-6.2) 10^6/uL Hgb (14.0-18.0) g/dL Hct (40.0-54.0) % MCV (80-100) fL MCH (27.0-34.0) pg MCHC (33.0-35.0) g/dL Plt Count (150-450) 10^3/uL Neut % (Auto) (42.2-75.2) % Lymph % (Auto) (20.5-50.1) % [place] % (Auto) (2-8) % Eos % (Auto) (1.0-3.0) % Baso % (Auto) (0.0-1.0) % Sodium (136-145) mmol/L Potassium (3.5-5.1) mmol/L Chloride (98-107) mmol/L Carbon Dioxide (21-32) mmol/L Anion Gap (7-13) mEq/L BUN (7-18) mg/dL Creatinine (0.70-1.30) mg/dL Est Cr Clr Drug Dosing mL/min Estimated GFR (MDRD) BUN/Creatinine Ratio (No establ ref range) Glucose (74-99) mg/dL POC Glucose 162 H (70-105) mg/dl Lactic Acid (0.4-2.0) mmol/L Calcium (8.5-10.1) mg/dL Total Bilirubin (0.2-1.0) mg/dL AST (15-37) U/L ALT (16-63) U/L Alkaline Phosphatase (46-116) U/L Troponin I (0.000-0.056) ng/mL Total Protein (6.4-8.2) g/dL Albumin (3.4-5.0) g/dL Globulin Albumin/Globulin Ratio Departure - Departure Time of Disposition: 18:33 Disposition: Home, Self-Care 01 Condition: Fair Clinical Impression: Neuropathy of left upper extremity - Discharge Information *PRESCRIPTION DRUG MONITORING PROGRAM REVIEWED*: Not Applicable *COPY OF PRESCRIPTION DRUG MONITORING REPORT IN PATIENT MELISSA: Not Applicable Forms: ED Department Discharge Care Plan Goals: The patient was advised of the examination, lab results, EKG results and CT results during the visit. The patient reports his symptoms were much improved. The patient was encouraged to continue to monitor for any additional symptoms or concerns. If the patient has any additional symptoms or concerns, the patient should either return to the emergency department or visit his primary care facility. Sepsis Event Note (ED) - Evaluation Sepsis Screening Result: No Definite Risk - Focused Exam Vital Signs: Vital Signs Temp Pulse Resp BP Pulse Ox 10/29/19 17:26 36.8 C 58 L 16 133/55 L 97 - My Orders Last 24 Hours: My Active Orders 10/29/19 17:21 EKG Documentation Completion [RC] STAT - Assessment/Plan Last 24 Hours: My Active Orders 10/29/19 17:21 EKG Documentation Completion [RC] STAT
--- NOTE | 2019-10-29 17:46 | CT ---
PROCEDURE INFORMATION: Exam: CT Head Without Contrast Exam date and time: 10/29/2019 5:38 PM Age: 64 years old Clinical indication: Weakness, extremity; Left; Additional info: Left upper extremity weakness TECHNIQUE: Imaging protocol: Computed tomography of the head without contrast. Radiation optimization: All CT scans at this facility use at least one of these dose optimization techniques: automated exposure control; mA and/or kV adjustment per patient size (includes targeted exams where dose is matched to clinical indication); or iterative reconstruction. Other technique: STROKE PROTOCOL was implemented. COMPARISON: MR Brain wo Cont 07/19/2019 2:19 PM FINDINGS: Brain: Prominent sulci. Patchy hypodensity of the cerebral white matter which are nonspecific but likely secondary to microangiopathic changes. Ventricles: The ventricles are prominent secondary to diffuse volume loss/atrophy. Bones/joints: Unremarkable. No acute fracture. Sinuses: Mild mucoperiosteal thickening of the paranasal sinuses. Mastoid air cells: Visualized mastoid air cells are well aerated. Soft tissues: Unremarkable. IMPRESSION: Chronic age related changes but no evidence of acute intracranial pathology. ASSESSMENT: ASPECTS ([place] Stroke Program Early CT Score) is 10
== END 2019-10-29 18:45 | disposition home or self-care (01) ==
LOC: DL.ED 17:13
DX: E11.42 Type 2 diabetes mellitus with diabetic polyneuropathy (principal); E11.22 Type 2 diabetes mellitus with diabetic chronic kidney disease; I25.10 Atherosclerotic heart disease of native coronary artery without angina pectoris; E78.00 Pure hypercholesterolemia, unspecified; I13.0 Hypertensive heart and chronic kidney disease with heart failure and stage 1 through stage 4 chronic kidney disease, or unspecified chronic kidney disease; I50.9 Heart failure, unspecified; N18.9 Chronic kidney disease, unspecified; Z79.4 Long term (current) use of insulin; Z79.899 Other long term (current) drug therapy; Z79.82 Long term (current) use of aspirin; Z95.5 Presence of coronary angioplasty implant and graft; Z99.81 Dependence on supplemental oxygen
CPT/HCPCS: 36415; 70450; 80053; 82962; 83605; 84484; 85025; 93005; 99285-25

== ENCOUNTER 2020-04-13 19:08 | Emergency (ER) | payer MEDICARE, OTHER ==
[2020-04-13] MEDS ORDERED: Amoxicillin/Clavulanate K 500-125 MG Tab PO ONE (21:35)
--- NOTE | 2020-04-13 21:40 | EDM.PDOC ---
ED HPI GENERAL MEDICAL PROBLEM - General Chief Complaint: ENT Problem Stated Complaint: INSECT BITE SWOLLEN INSIDEEAR HURTS Time Seen by Provider: 04/13/20 21:20 Source of Information: Reports: Patient History Limitations: Reports: No Limitations - History of Present Illness INITIAL COMMENTS - FREE TEXT/NARRATIVE: ED with swelling crusting to outer right ear x 2 days, worse this afternoon ira. No fever, tender. Peritoneal dialysis patient. Right Ear Pain Score (Numeric/FACES): 3 - Related Data Allergies Allergy/AdvReac Type Severity Reaction Status Date / Time No Known Allergies Allergy Verified 04/13/20 21:29 Home Meds: Home Meds Hydrocodone/Acetaminophen [Hydrocodone-Acetaminophen 5-325] 1 tab PO TID PRN 12/20/13 [History] Insulin Detemir [Levemir Flexpen] 25 unit SQ BID 01/19/14 [History] Ezetimibe [Zetia] 10 mg PO DAILY 05/15/16 [History] Gabapentin [Neurontin] 300 mg PO BEDTIME 05/15/16 [History] LORazepam 1 mg PO QID PRN 05/15/16 [History] Loratadine 10 mg PO DAILY 05/15/16 [History] Terazosin HCl [Terazosin] 5 mg PO BEDTIME 05/15/16 [History] Docusate Sodium 100 mg PO BID PRN #60 capsule 12/29/16 [Rx] Isosorbide Mononitrate [Imdur] 120 mg PO BID 05/27/17 [History] Calcium Citrate/Vitamin D3 [Calcium Citrate + D] 2 each PO BID 06/12/17 [Histo ry] Cyanocobalamin (Vitamin B-12) [Vitamin B-12] 100 mcg PO DAILY 06/12/17 [History] Furosemide 60 mg PO DAILY 06/12/17 [History] atorvaSTATin [Lipitor] 20 mg PO BEDTIME 06/12/17 [History] calcitrioL [Rocaltrol] 0.25 mcg PO DAILY 06/12/17 [History] carvediloL [Carvedilol] 50 mg PO BIDMEALS 06/12/17 [History] hydrALAZINE [Apresoline] 150 mg PO Q8H 06/12/17 [History] metOLazone [Zaroxolyn] 2.5 mg PO .48H 06/12/17 [History] Aspirin [Halfprin] 81 mg PO DAILY 06/22/18 [History] Ranitidine [Zantac] 150 mg PO BID 06/22/18 [History] Sevelamer Carbonate 800 mg PO BIDMEALS 06/22/18 [History] dilTIAZem HCL [Taztia Xt] 120 mg PO DAILY 06/22/18 [History] Insulin Lispro [HumaLOG] 0 unit SUBCUT ACBED vial 06/25/18 [Rx] Mupirocin Oint [Bactroban Oint] 1 applic TOP DAILY 09/15/18 [History] Past Medical History HEENT History: Reports: Impaired Vision Other HEENT History: WEARS CORRECTIVE LENSES; UPPER AND LOWER DENTURE PLATE Cardiovascular History: Reports: CAD, Heart Failure, High Cholesterol, Hypertension, Stents Respiratory History: Reports: Pneumonia, Recurrent, SOB, Other (See Below) Other Respiratory History: recent bronchitis Gastrointestinal History: Reports: Chronic Constipation, Colon Polyp, Gastritis, GERD Other Gastrointestinal History: gall stones Genitourinary History: Reports: BPH, Chronic Renal Insuffiency, Dialysis, Peritoneal Musculoskeletal History: Reports: Fracture Other Musculoskeletal History: missing tip of pinkie on left hand Neurological History: Reports: Headaches, Chronic, Neuropathy, Diabetic Psychiatric History: Reports: Anxiety Endocrine/Metabolic History: Reports: Diabetes, Type II Hematologic History: Reports: B12 Deficiency Immunologic History: Reports: None Oncologic (Cancer) History: Reports: None Dermatologic History: Reports: None - Infectious Disease History Infectious Disease History: Reports: None - Past Surgical History Head Surgeries/Procedures: Reports: None HEENT Surgical History: Reports: None Cardiovascular Surgical History: Reports: Coronary Artery Stent Respiratory Surgical History: Reports: None GI Surgical History: Reports: Cholecystectomy Male Surgical History: Reports: None Neurological Surgical History: Reports: None Musculoskeletal Surgical History: Reports: None Other Musculoskeletal Surgeries/Procedures:: LEFT ANKLE SURGERY Oncologic Surgical History: Reports: None Dermatological Surgical History: Reports: None Social & Family History - Family History Family Medical History: No Pertinent Family History : Reports: Renal Disease/Insufficiency Neurological: Reports: TIA Endocrine/Metabolic: Reports: Diabetes, type II - Caffeine Use Caffeine Use: Reports: Coffee, Soda Other Caffeine Use: states drinks decaffinated coffee Caffeine Use Comment: decaf coffee - Living Situation & Occupation Living situation: Reports: with Family, Occupation: Employed ED ROS GENERAL - Review of Systems Review Of Systems: Comprehensive ROS is negative, except as noted in HPI. ED EXAM, SKIN/RASH Exam: See Below Exam Limited By: No Limitations General Appearance: No Apparent Distress Eye Exam: Bilateral Eye: EOMI Ears: Other (right outer pinna swollen, yellow crusting to fold. lowerlobe mild warmth. ear canal WNL ). No: Normal External Exam Nose: Normal Inspection Throat/Mouth: Normal Inspection Head: Atraumatic Neck: Full Range of Motion Respiratory/Chest: No Respiratory Distress, Lungs Clear Cardiovascular: Regular Rate, Rhythm Extremities: Normal Inspection Neurological: Alert, Oriented Psychiatric: Normal Affect, Normal Mood Location, Skin: Head Course - Vital Signs Last Recorded V/S: Last Vital Signs Temp 98.4 F 04/13/20 21:20 Pulse 58 L 04/13/20 21:20 Resp 18 04/13/20 21:20 BP 150/70 H 04/13/20 21:20 Pulse Ox 96 04/13/20 21:20 - Orders/Labs/Meds Meds: Medications Discontinued Medications Generic Name Dose Route Start Last Admin Trade Name Ellen PRN Reason Stop Dose Admin Amoxicillin/Clavulanate Potassium 1 tab 04/13/20 21:35 04/13/20 21:39 Augmentin 500 Mg\125 Mg PO 04/13/20 21:36 1 tab ONETIME ONE Administration Departure - Departure Time of Disposition: 21:37 Disposition: Home, Self-Care 01 Condition: Good Clinical Impression: Skin infection, Dialysis patient - Discharge Information *PRESCRIPTION DRUG MONITORING PROGRAM REVIEWED*: No *COPY OF PRESCRIPTION DRUG MONITORING REPORT IN PATIENT MELISSA: No Instructions: Cellulitis, Adult, [id number] Referrals: Nathanael Harvey MD [Primary Care Provider] - Forms: ED Department Discharge Additional Instructions: warm moist pack to right ear wash area 3 times daily soapy water recheck tomorrow clinic if appears wors or develop fever tylenol 650mg every 4 hours as needed for discomfort augmentin 250/125 one every 12 hours x 10 days Recheck clinic Friday Sepsis Event Note (ED) - Focused Exam Vital Signs: Vital Signs Temp Pulse Resp BP Pulse Ox 04/13/20 21:20 98.4 F 58 L 18 150/70 H 96
[2020-04-13 21:56] VITALS: BP 150/70; PULSE 58
== END 2020-04-13 21:45 | disposition home or self-care (01) ==
LOC: DL.ED 19:08
DX: L08.9 Local infection of the skin and subcutaneous tissue, unspecified (principal); I25.10 Atherosclerotic heart disease of native coronary artery without angina pectoris; I13.0 Hypertensive heart and chronic kidney disease with heart failure and stage 1 through stage 4 chronic kidney disease, or unspecified chronic kidney disease; I50.9 Heart failure, unspecified; E78.00 Pure hypercholesterolemia, unspecified; N18.9 Chronic kidney disease, unspecified; E11.40 Type 2 diabetes mellitus with diabetic neuropathy, unspecified; E11.22 Type 2 diabetes mellitus with diabetic chronic kidney disease; K21.9 Gastro-esophageal reflux disease without esophagitis; F41.9 Anxiety disorder, unspecified; Z99.2 Dependence on renal dialysis; Z79.82 Long term (current) use of aspirin; Z79.4 Long term (current) use of insulin; Z79.899 Other long term (current) drug therapy; Z95.5 Presence of coronary angioplasty implant and graft
CPT/HCPCS: 99282; A9270

== ENCOUNTER 2020-06-14 14:11 | Emergency (ER) | payer MEDICARE, OTHER ==
[2020-06-14 14:29] VITALS: BP 152/72; PULSE 66
--- NOTE | 2020-06-14 14:58 | EDM.PDOC ---
ED HPI GENERAL MEDICAL PROBLEM - General Chief Complaint: General Stated Complaint: NOT FEELING WELL Time Seen by Provider: 06/14/20 15:14 Source of Information: Reports: Patient, RN, RN Notes Reviewed History Limitations: Reports: No Limitations - History of Present Illness INITIAL COMMENTS - FREE TEXT/NARRATIVE: Patient presents to the ED via personal vehicle with complaints of watery eyes, malaise, and fatigue. The patient states he was evaluated at [facility] yesterday for similar symptoms and was diagnosed with environmental allergies. He expresses concern as no Influenza or COVID tests were done given his symptoms. He does attest to a history of CKD for which he performs peritoneal dialysis. He denies recent illness, fever, shaking chills, cough, sore throat, chest pain, shortness of breath, palpitations, nausea, vomiting, melena, or hematochezia. He does attest to sinus pressure and occasional diarrhea. The patient denies a history of a COVID infection and has not received a vaccination. He denies tobacco, alcohol, or recreational drug use. - Related Data Allergies Allergy/AdvReac Type Severity Reaction Status Date / Time No Known Allergies Allergy Verified 04/13/20 21:29 Home Meds: Home Meds Hydrocodone/Acetaminophen [Hydrocodone-Acetaminophen 5-325] 1 tab PO TID PRN 12/20/13 [History] Insulin Detemir [Levemir Flexpen] 25 unit SQ BID 01/19/14 [History] Ezetimibe [Zetia] 10 mg PO DAILY 05/15/16 [History] Gabapentin [Neurontin] 300 mg PO BEDTIME 05/15/16 [History] LORazepam 1 mg PO QID PRN 05/15/16 [History] Loratadine 10 mg PO DAILY 05/15/16 [History] Terazosin HCl [Terazosin] 5 mg PO BEDTIME 05/15/16 [History] Docusate Sodium 100 mg PO BID PRN #60 capsule 12/29/16 [Rx] Isosorbide Mononitrate [Imdur] 120 mg PO BID 05/27/17 [History] Calcium Citrate/Vitamin D3 [Calcium Citrate + D] 2 each PO BID 06/12/17 [History] Cyanocobalamin (Vitamin B-12) [Vitamin B-12] 100 mcg PO DAILY 06/12/17 [History] Furosemide 60 mg PO DAILY 06/12/17 [History] atorvaSTATin [Lipitor] 20 mg PO BEDTIME 06/12/17 [History] calcitrioL [Rocaltrol] 0.25 mcg PO DAILY 06/12/17 [History] carvediloL [Carvedilol] 50 mg PO BIDMEALS 06/12/17 [History] hydrALAZINE [Apresoline] 150 mg PO Q8H 06/12/17 [History] metOLazone [Zaroxolyn] 2.5 mg PO .48H 06/12/17 [History] Aspirin [Halfprin] 81 mg PO DAILY 06/22/18 [History] Ranitidine [Zantac] 150 mg PO BID 06/22/18 [History] Sevelamer Carbonate 800 mg PO BIDMEALS 06/22/18 [History] dilTIAZem HCL [Taztia Xt] 120 mg PO DAILY 06/22/18 [History] Insulin Lispro [HumaLOG] 0 unit SUBCUT ACBED vial 06/25/18 [Rx] Mupirocin Oint [Bactroban Oint] 1 applic TOP DAILY 09/15/18 [History] Past Medical History HEENT History: Reports: Impaired Vision Other HEENT History: WEARS CORRECTIVE LENSES; UPPER AND LOWER DENTURE PLATE Cardiovascular History: Reports: CAD, Heart Failure, High Cholesterol, Hypertension, CT, Stents Respiratory History: Reports: Bronchitis, Recurrent, Pneumonia, Recurrent, SOB Other Respiratory History: recent bronchitis Gastrointestinal History: Reports: Chronic Constipation, Colon Polyp, Gastritis, GERD Other Gastrointestinal History: gall stones Genitourinary History: Reports: BPH, Chronic Renal Insuffiency, Dialysis, Peritoneal Musculoskeletal History: Reports: Fracture Other Musculoskeletal History: missing tip of pinkie on left hand Neurological History: Reports: Headaches, Chronic, Neuropathy, Diabetic, Neuropathy, Peripheral Psychiatric History: Reports: Anxiety Endocrine/Metabolic History: Reports: Diabetes, Type II Hematologic History: Reports: B12 Deficiency Immunologic History: Reports: None Oncologic (Cancer) History: Reports: None Dermatologic History: Reports: None - Infectious Disease History Infectious Disease History: Reports: Chicken Pox - Past Surgical History Head Surgeries/Procedures: Reports: None HEENT Surgical History: Reports: None Cardiovascular Surgical History: Reports: Coronary Artery Stent Other Cardiovascular Surgeries/Procedures: 1 stent Respiratory Surgical History: Reports: None GI Surgical History: Reports: Cholecystectomy Male Surgical History: Reports: None Endocrine Surgical History: Reports: None Neurological Surgical History: Reports: None Musculoskeletal Surgical History: Reports: None Other Musculoskeletal Surgeries/Procedures:: LEFT ANKLE SURGERY Oncologic Surgical History: Reports: None Dermatological Surgical History: Reports: None Social & Family History - Family History Family Medical History: No Pertinent Family History : Reports: Renal Disease/Insufficiency Neurological: Reports: TIA Endocrine/Metabolic: Reports: Diabetes, type II - Tobacco Use Tobacco Use Status *Q: Never Tobacco User Second Hand Smoke Exposure: No - Caffeine Use Caffeine Use: Reports: Coffee Other Caffeine Use: states drinks decaffinated coffee Caffeine Use Comment: decaf coffee - Recreational Drug Use Recreational Drug Use: No - Living Situation & Occupation Living situation: Reports: with Family, Occupation: Employed ED ROS GENERAL - Review of Systems Review Of Systems: Comprehensive ROS is negative, except as noted in HPI. ED EXAM, GENERAL - Physical Exam Exam: See Below Exam Limited By: No Limitations General Appearance: Alert, No Apparent Distress Eye Exam: Bilateral Eye: EOMI, PERRL (3mm), Other (Injected sclera) Ears: Normal External Exam, Normal Canal, Hearing Grossly Normal. No: Normal TMs Ear Exam: Bilateral Ear: Auricle Normal, Canal Normal, TM Dull Nose: Normal Mucosa, No Blood, Clear Rhinorrhea. No: Nasal Tenderness, Nasal Swelling Throat/Mouth: Normal Voice, No Airway Compromise. No: Normal Oropharynx (Dry mucous membranes) Head: Atraumatic, Normocephalic Neck: Normal Inspection, Supple, Non-Tender, Full Range of Motion. No: Lymphadenopathy (L), Lymphadenopathy (R) Respiratory/Chest: No Respiratory Distress, Lungs Clear, Normal Breath Sounds, No Accessory Muscle Use, Chest Non-Tender Cardiovascular: Normal Peripheral Pulses, Regular Rate, Rhythm, No Edema, No Gallop, No JVD, No Murmur, No Rub GI/Abdominal: Soft, Non-Tender, No Distention, No Mass, Pelvis Stable, Other (Periteonal dialysis port in place; Port C/D/I) (Male) Exam: Deferred Rectal (Males) Exam: Deferred Back Exam: Normal Inspection, Full Range of Motion Extremities: Normal Inspection, Normal Range of Motion, Non-Tender, No Pedal Edema, Normal Capillary Refill Neurological: Alert, Oriented, CN II-XII Intact, Normal Cognition, Normal Gait, No Motor/Sensory Deficits Psychiatric: Normal Affect, Normal Mood Skin Exam: Warm, Dry, Intact, Normal Color, No Rash. No: Ecchymosis, Erythema, Jaundice, Mottled, Pallor, Petechiae Course - Vital Signs Last Recorded V/S: Last Vital Signs Temp 98 F 06/14/20 14:22 Pulse 66 06/14/20 14:22 Resp 16 06/14/20 14:22 BP 152/72 H 06/14/20 14:22 Pulse Ox 100 06/14/20 14:22 - Orders/Labs/Meds Labs: Laboratory Tests 06/14/20 06/14/20 06/14/20 Range/Units 14:42 14:46 14:46 WBC 7.0 (5.0-10.0) 10^3/uL RBC 3.71 L (4.6-6.2) 10^6/uL Hgb 9.9 L (14.0-18.0) g/dL Hct 31.8 L (40.0-54.0) % MCV 85.7 (80-100) fL MCH 26.7 L (27.0-34.0) pg MCHC 31.1 L (33.0-35.0) g/dL Plt Count 137 L (150-450) 10^3/uL Neut % (Auto) 75.3 H (42.2-75.2) % Lymph % (Auto) 15.5 L (20.5-50.1) % [place] % (Auto) 6.6 (2-8) % Eos % (Auto) 2.3 (1.0-3.0) % Baso % (Auto) 0.3 (0.0-1.0) % Sodium 145 (136-145) mmol/L Potassium 4.2 (3.5-5.1) mmol/L Chloride 111 H (98-107) mmol/L Carbon Dioxide 20 L (21-32) mmol/L Anion Gap 18.2 H (7-13) mEq/L BUN 49 H (7-18) mg/dL Creatinine 6.30 H* (0.70-1.30) mg/dL Est Cr Clr Drug Dosing 12.07 mL/min Estimated GFR (MDRD) 9 BUN/Creatinine Ratio 7.8 (No establ ref range) Glucose 115 H (74-99) mg/dL Calcium 8.5 (8.5-10.1) mg/dL Total Bilirubin 0.5 (0.2-1.0) mg/dL AST 15 (15-37) U/L ALT 17 (16-63) U/L Alkaline Phosphatase 72 (46-116) U/L Total Protein 6.7 (6.4-8.2) g/dL Albumin 2.6 L (3.4-5.0) g/dL Globulin 4.1 Albumin/Globulin Ratio 0.63 Influenza Type A RNA Negative (NEGATIVE) Influenza Type B RNA Negative (NEGATIVE) SARS-CoV-2 RNA (MARGOTH) Negative (NEGATIVE) - Re-Assessments/Exams Free Text/Narrative Re-Assessment/Exam: 06/14/20 COVID and Influenza screen negative; patient notified of results. CMP remarkable for chronic kidney disease; patient already undergoing peritoneal dialysis. Given HPI and physical exam, will treat for environmental allergies. Patient instructed to continue daily Claritin and initiate Flonase daily. Patient verbalized understanding and agreement with the plan of care. Departure - Departure Time of Disposition: 15:33 Disposition: Home, Self-Care 01 Condition: Good Clinical Impression: Environmental allergies, History of chronic kidney disease, Chronic kidney disease requiring chronic dialysis Fatigue Qualifiers: Fatigue type: unspecified Qualified Code(s): R53.83 - Other fatigue - Discharge Information *PRESCRIPTION DRUG MONITORING PROGRAM REVIEWED*: Not Applicable *COPY OF PRESCRIPTION DRUG MONITORING REPORT IN PATIENT MELISSA: Not Applicable Referrals: Nathanael Harvey MD [Primary Care Provider] - Forms: ED Department Discharge Additional Instructions: 1.) Continue with Loratadine 2.) You may trial Flonase daily to help with your runny eyes and nose. Sepsis Event Note (ED) - Evaluation Sepsis Screening Result: No Definite Risk - Focused Exam Vital Signs: Vital Signs Temp Pulse Resp BP Pulse Ox 06/14/20 14:22 98 F 66 16 152/72 H 100
[2020-06-14 15:13] LABS: ANION GAP 18.2 mEq/L (7-13)
[2020-06-14 15:30] LABS: CORONAVIRUS COVID-19 NAA NEGATIVE (NEGATIVE)
== END 2020-06-14 15:54 | disposition home or self-care (01) ==
LOC: DL.ED 14:11
DX: J30.2 Other seasonal allergic rhinitis (principal); I13.2 Hypertensive heart and chronic kidney disease with heart failure and with stage 5 chronic kidney disease, or end stage renal disease; E11.22 Type 2 diabetes mellitus with diabetic chronic kidney disease; N18.6 End stage renal disease; I50.9 Heart failure, unspecified; I25.10 Atherosclerotic heart disease of native coronary artery without angina pectoris; E78.00 Pure hypercholesterolemia, unspecified; I25.2 Old myocardial infarction; K21.9 Gastro-esophageal reflux disease without esophagitis; E11.21 Type 2 diabetes mellitus with diabetic nephropathy; E11.42 Type 2 diabetes mellitus with diabetic polyneuropathy; Z99.2 Dependence on renal dialysis; Z79.4 Long term (current) use of insulin; Z79.899 Other long term (current) drug therapy; Z79.82 Long term (current) use of aspirin; Z20.822 Contact with and (suspected) exposure to COVID-19
CPT/HCPCS: 0240U; 36415; 80053; 85025; 99283

== ENCOUNTER 2020-07-18 12:44 | Emergency (ER) | payer MEDICARE, OTHER ==
--- NOTE | 2020-07-18 13:03 | EDM.PDOC ---
ED HPI GENERAL MEDICAL PROBLEM - General Chief Complaint: General Stated Complaint: AMBULANCE Time Seen by Provider: 07/18/20 13:03 Source of Information: Reports: Patient, EMS, Old Records, RN, RN Notes Reviewed History Limitations: Reports: No Limitations - History of Present Illness INITIAL COMMENTS - FREE TEXT/NARRATIVE: 65 y.o M arrives via EMS w/reports of anxiety, headache that began last night. Pt states he was recently dx w/bleeding behind the R eye and is scheduled to have surgery this coming Friday. Pt did dialysis last night without complication. Pt states he told EMS that he was having chest pain, but is was more an anxious feeling. He denies chest pain at this time. Onset: Today Duration: Constant Location: Reports: Generalized Severity: Severe Improves with: Reports: None Worsens with: Reports: None Associated Symptoms: Reports: No Other Symptoms - Related Data Allergies Allergy/AdvReac Type Severity Reaction Status Date / Time No Known Allergies Allergy Verified 04/13/20 21:29 Home Meds: Home Meds Hydrocodone/Acetaminophen [Hydrocodone-Acetaminophen 5-325] 1 tab PO TID PRN 12/20/13 [History] Insulin Detemir [Levemir Flexpen] 25 unit SQ BID 01/19/14 [History] Ezetimibe [Zetia] 10 mg PO DAILY 05/15/16 [History] Gabapentin [Neurontin] 300 mg PO BEDTIME 05/15/16 [History] LORazepam 1 mg PO QID PRN 05/15/16 [History] Loratadine 10 mg PO DAILY 05/15/16 [History] Terazosin HCl [Terazosin] 5 mg PO BEDTIME 05/15/16 [History] Docusate Sodium 100 mg PO BID PRN #60 capsule 12/29/16 [Rx] Isosorbide Mononitrate [Imdur] 120 mg PO BID 05/27/17 [History] Calcium Citrate/Vitamin D3 [Calcium Citrate + D] 2 each PO BID 06/12/17 [History] Cyanocobalamin (Vitamin B-12) [Vitamin B-12] 100 mcg PO DAILY 06/12/17 [History] Furosemide 60 mg PO DAILY 06/12/17 [History] atorvaSTATin [Lipitor] 20 mg PO BEDTIME 06/12/17 [History] calcitrioL [Rocaltrol] 0.25 mcg PO DAILY 06/12/17 [History] carvediloL [Carvedilol] 50 mg PO BIDMEALS 06/12/17 [History] hydrALAZINE [Apresoline] 150 mg PO Q8H 06/12/17 [History] metOLazone [Zaroxolyn] 2.5 mg PO .48H 06/12/17 [History] Aspirin [Halfprin] 81 mg PO DAILY 06/22/18 [History] Ranitidine [Zantac] 150 mg PO BID 06/22/18 [History] Sevelamer Carbonate 800 mg PO BIDMEALS 06/22/18 [History] dilTIAZem HCL [Taztia Xt] 120 mg PO DAILY 06/22/18 [History] Insulin Lispro [HumaLOG] 0 unit SUBCUT ACBED vial 06/25/18 [Rx] Mupirocin Oint [Bactroban Oint] 1 applic TOP DAILY 09/15/18 [History] Past Medical History HEENT History: Reports: Impaired Vision Other HEENT History: WEARS CORRECTIVE LENSES; UPPER AND LOWER DENTURE PLATE Cardiovascular History: Reports: CAD, Heart Failure, High Cholesterol, Hypertension, [place], Stents Respiratory History: Reports: Bronchitis, Recurrent, Pneumonia, Recurrent, SOB Other Respiratory History: recent bronchitis Gastrointestinal History: Reports: Chronic Constipation, Colon Polyp, Gastritis, GERD Other Gastrointestinal History: gall stones Genitourinary History: Reports: BPH, Chronic Renal Insuffiency, Dialysis, Peritoneal Musculoskeletal History: Reports: Fracture Other Musculoskeletal History: missing tip of pinkie on left hand Neurological History: Reports: Headaches, Chronic, Neuropathy, Diabetic, Neuropathy, Peripheral Psychiatric History: Reports: Anxiety Endocrine/Metabolic History: Reports: Diabetes, Type II Hematologic History: Reports: B12 Deficiency Immunologic History: Reports: None Oncologic (Cancer) History: Reports: None Dermatologic History: Reports: None - Infectious Disease History Infectious Disease History: Reports: Chicken Pox - Past Surgical History Head Surgeries/Procedures: Reports: None HEENT Surgical History: Reports: None Cardiovascular Surgical History: Reports: Coronary Artery Stent Other Cardiovascular Surgeries/Procedures: 1 stent Respiratory Surgical History: Reports: None GI Surgical History: Reports: Cholecystectomy Male Surgical History: Reports: None Endocrine Surgical History: Reports: None Neurological Surgical History: Reports: None Musculoskeletal Surgical History: Reports: None Other Musculoskeletal Surgeries/Procedures:: LEFT ANKLE SURGERY Oncologic Surgical History: Reports: None Dermatological Surgical History: Reports: None Social & Family History - Family History Family Medical History: No Pertinent Family History : Reports: Renal Disease/Insufficiency Neurological: Reports: TIA Endocrine/Metabolic: Reports: Diabetes, type II - Caffeine Use Caffeine Use: Reports: Coffee Other Caffeine Use: states drinks decaffinated coffee Caffeine Use Comment: decaf coffee - Living Situation & Occupation Living situation: Reports: with Family, Occupation: Employed ED ROS GENERAL - Review of Systems Review Of Systems: Comprehensive ROS is negative, except as noted in HPI. ED EXAM GENERAL W FULL EYE - Physical Exam Exam: See Below Exam Limited By: No Limitations General Appearance: Alert, No Apparent Distress, Anxious Ears: Hearing Grossly Normal Nose: Normal Inspection, No Blood Throat/Mouth: Normal Lips, Normal Voice, No Airway Compromise Head: Atraumatic, Normocephalic Neck: Normal Inspection Respiratory/Chest: No Respiratory Distress, Lungs Clear, No Accessory Muscle Use, Chest Non-Tender, Decreased Breath Sounds Cardiovascular: Normal Peripheral Pulses, Regular Rate, Rhythm, No Edema, No Gallop, No JVD, No Rub, Systolic Murmur (2/6 PURA) GI/Abdominal: Normal Bowel Sounds, Soft, Non-Tender, Other (No sign of infection around PD port, dressing not removed.). No: Guarding, Rigid, Rebound Back Exam: Normal Inspection Extremities: Normal Inspection Neurological: Alert, Oriented, No Motor/Sensory Deficits Psychiatric: Anxious, Flat Affect Skin Exam: Warm, Dry, Intact, Normal Color #1 Interpretation EKG Date: 07/18/20 Time: 12:44 Rhythm: Other (SR) Rate (Beats/Min): 58 [place]: LAD-Left [place] Deviation P-Wave: Present QRS: LBBB ST-T: Other (LBBB) QT: Prolonged Comparison: No Change Course - Vital Signs Last Recorded V/S: Last Vital Signs Temp 98.3 F 07/18/20 12:59 Pulse 61 07/18/20 12:59 Resp 23 H 07/18/20 12:59 BP 114/80 07/18/20 12:59 Pulse Ox - Orders/Labs/Meds Orders: Active Orders 24 hr Category Date Time Status EKG 12 Lead [EKG Documentation Completion] [RC] STAT Care 07/18/20 13:08 Active Labs: Laboratory Tests 07/18/20 07/18/20 Range/Units 13:19 13:19 WBC 8.9 (5.0-10.0) 10^3/uL RBC 3.24 L (4.6-6.2) 10^6/uL Hgb 8.5 L (14.0-18.0) g/dL Hct 26.9 L (40.0-54.0) % MCV 83.0 (80-100) fL MCH 26.2 L (27.0-34.0) pg MCHC 31.6 L (33.0-35.0) g/dL Plt Count 143 L (150-450) 10^3/uL Neut % (Auto) 82.3 H (42.2-75.2) % Lymph % (Auto) 9.7 L (20.5-50.1) % [place] % (Auto) 6.6 (2-8) % Eos % (Auto) 1.2 (1.0-3.0) % Baso % (Auto) 0.2 (0.0-1.0) % Sodium 143 (136-145) mmol/L Potassium 3.8 (3.5-5.1) mmol/L Chloride 105 (98-107) mmol/L Carbon Dioxide 25 (21-32) mmol/L Anion Gap 16.8 H (7-13) mEq/L BUN 53 H (7-18) mg/dL Creatinine 6.74 H* (0.70-1.30) mg/dL Est Cr Clr Drug Dosing 11.28 mL/min Estimated GFR (MDRD) 8 BUN/Creatinine Ratio 7.9 (No establ ref range) Glucose 109 H (74-99) mg/dL Calcium 8.3 L (8.5-10.1) mg/dL Total Bilirubin 0.6 (0.2-1.0) mg/dL AST 13 L (15-37) U/L ALT 15 L (16-63) U/L Alkaline Phosphatase 78 (46-116) U/L Total Protein 6.8 (6.4-8.2) g/dL Albumin 3.1 L (3.4-5.0) g/dL Globulin 3.7 Albumin/Globulin Ratio 0.84 Departure - Departure Time of Disposition: 14:06 Disposition: Home, Self-Care 01 Clinical Impression: Anxiety about health Anemia Qualifiers: Anemia type: due to chronic kidney disease Chronic kidney disease stage: on chronic dialysis Qualified Code(s): N18.6 - End stage renal disease - Discharge Information *PRESCRIPTION DRUG MONITORING PROGRAM REVIEWED*: Not Applicable *COPY OF PRESCRIPTION DRUG MONITORING REPORT IN PATIENT MELISSA: Not Applicable Instructions: Managing Anxiety, Adult Forms: ED Department Discharge Additional Instructions: Follow up with your primary doctor or identity access management architect for recheck of your anemia before your eye surgery. Follow up with your eye surgeon as scheduled. Sepsis Event Note (ED) - Focused Exam Vital Signs: Vital Signs Temp Pulse Resp BP 07/18/20 12:59 98.3 F 61 23 H 114/80 - My Orders Last 24 Hours: My Active Orders 07/18/20 13:08 EKG 12 Lead [EKG Documentation Completion] [RC] STAT - Assessment/Plan Last 24 Hours: My Active Orders 07/18/20 13:08 EKG 12 Lead [EKG Documentation Completion] [RC] STAT
[2020-07-18 13:05] VITALS: BP 114/80; PULSE 61
[2020-07-18] MEDS ORDERED: LORazepam 2 MG/ML SDV IVPUSH ONE (13:07)
[2020-07-18 14:00] LABS: ANION GAP 16.8 mEq/L (7-13)
== END 2020-07-18 14:27 | disposition home or self-care (01) ==
LOC: DL.ED 12:44
DX: F41.9 Anxiety disorder, unspecified (principal); I13.2 Hypertensive heart and chronic kidney disease with heart failure and with stage 5 chronic kidney disease, or end stage renal disease; E11.22 Type 2 diabetes mellitus with diabetic chronic kidney disease; N18.6 End stage renal disease; I50.9 Heart failure, unspecified; D63.1 Anemia in chronic kidney disease; I44.7 Left bundle-branch block, unspecified; I25.10 Atherosclerotic heart disease of native coronary artery without angina pectoris; E78.00 Pure hypercholesterolemia, unspecified; I25.2 Old myocardial infarction; K21.9 Gastro-esophageal reflux disease without esophagitis; E11.42 Type 2 diabetes mellitus with diabetic polyneuropathy; Z99.2 Dependence on renal dialysis; Z79.4 Long term (current) use of insulin; Z79.82 Long term (current) use of aspirin; Z79.899 Other long term (current) drug therapy
CPT/HCPCS: 36415; 80053; 85025; 93005; 93010; 96374; 99283; 99284; J2060

== ENCOUNTER 2020-07-27 23:40 | Emergency (ER) | payer MEDICARE, OTHER ==
[2020-07-28 00:54] VITALS: BP 125/45; PULSE 65
[2020-07-28 01:01] LABS: CORONAVIRUS COVID-19 NAA NEGATIVE (NEGATIVE)
--- NOTE | 2020-07-28 01:19 | EDM.PDOC ---
ED HPI GENERAL MEDICAL PROBLEM - General Chief Complaint: General Stated Complaint: [facility] Time Seen by Provider: 07/28/20 01:00 Source of Information: Reports: Patient History Limitations: Reports: No Limitations - History of Present Illness INITIAL COMMENTS - FREE TEXT/NARRATIVE: This 65 yo male patient was brought to the ED by ambulance due to having a fever at home of 102. The patient reports he has not been feeling well today, but when he was getting ready for bed tonight his noticed his elevated temperature. The patient's called his parapineal dialysis nurse regarding his elevated temp and was advised to have the patient be seen for his fever. The patient denies any cough, shortness of breath, abdominal pain, nausea, vomiting or diarrhea. Onset: Today Duration: Other Location: Reports: Other Quality: Reports: Other Severity: Mild Improves with: Reports: None Worsens with: Reports: None Context: Reports: Other Associated Symptoms: Reports: No Other Symptoms - Related Data Allergies Allergy/AdvReac Type Severity Reaction Status Date / Time No Known Allergies Allergy Verified 07/28/20 00:55 Home Meds: Home Meds Hydrocodone/Acetaminophen [Hydrocodone-Acetaminophen 5-325] 1 tab PO TID PRN 12/20/13 [History] Insulin Detemir [Levemir Flexpen] 25 unit SQ BID 01/19/14 [History] Ezetimibe [Zetia] 10 mg PO DAILY 05/15/16 [History] Gabapentin [Neurontin] 300 mg PO BEDTIME 05/15/16 [History] LORazepam 1 mg PO QID PRN 05/15/16 [History] Loratadine 10 mg PO DAILY 05/15/16 [History] Terazosin HCl [Terazosin] 5 mg PO BEDTIME 05/15/16 [History] Docusate Sodium 100 mg PO BID PRN #60 capsule 12/29/16 [Rx] Isosorbide Mononitrate [Imdur] 120 mg PO BID 05/27/17 [History] Calcium Citrate/Vitamin D3 [Calcium Citrate + D] 2 each PO BID 06/12/17 [History] Cyanocobalamin (Vitamin B-12) [Vitamin B-12] 100 mcg PO DAILY 06/12/17 [History] Furosemide 60 mg PO DAILY 06/12/17 [History] atorvaSTATin [Lipitor] 20 mg PO BEDTIME 06/12/17 [History] calcitrioL [Rocaltrol] 0.25 mcg PO DAILY 06/12/17 [History] carvediloL [Carvedilol] 50 mg PO BIDMEALS 06/12/17 [History] hydrALAZINE [Apresoline] 150 mg PO Q8H 06/12/17 [History] metOLazone [Zaroxolyn] 2.5 mg PO .48H 06/12/17 [History] Aspirin [Halfprin] 81 mg PO DAILY 06/22/18 [History] Ranitidine [Zantac] 150 mg PO BID 06/22/18 [History] Sevelamer Carbonate 800 mg PO BIDMEALS 06/22/18 [History] dilTIAZem HCL [Taztia Xt] 120 mg PO DAILY 06/22/18 [History] Insulin Lispro [HumaLOG] 0 unit SUBCUT ACBED vial 06/25/18 [Rx] Mupirocin Oint [Bactroban Oint] 1 applic TOP DAILY 09/15/18 [History] Past Medical History HEENT History: Reports: Impaired Vision Other HEENT History: WEARS CORRECTIVE LENSES; UPPER AND LOWER DENTURE PLATE Cardiovascular History: Reports: CAD, Heart Failure, High Cholesterol, Hypertension, [place], Stents Respiratory History: Reports: Bronchitis, Recurrent, Pneumonia, Recurrent, SOB Other Respiratory History: recent bronchitis Gastrointestinal History: Reports: Chronic Constipation, Colon Polyp, Gastritis, GERD Other Gastrointestinal History: gall stones Genitourinary History: Reports: BPH, Chronic Renal Insuffiency, Dialysis, Peritoneal Musculoskeletal History: Reports: Fracture Other Musculoskeletal History: missing tip of pinkie on left hand Neurological History: Reports: Headaches, Chronic, Neuropathy, Diabetic, Neuropathy, Peripheral Psychiatric History: Reports: Anxiety Endocrine/Metabolic History: Reports: Diabetes, Type II Hematologic History: Reports: B12 Deficiency Immunologic History: Reports: None Oncologic (Cancer) History: Reports: None Dermatologic History: Reports: None - Infectious Disease History Infectious Disease History: Reports: Chicken Pox - Past Surgical History Head Surgeries/Procedures: Reports: None HEENT Surgical History: Reports: None Cardiovascular Surgical History: Reports: Coronary Artery Stent Other Cardiovascular Surgeries/Procedures: 1 stent Respiratory Surgical History: Reports: None GI Surgical History: Reports: Cholecystectomy Male Surgical History: Reports: None Endocrine Surgical History: Reports: None Neurological Surgical History: Reports: None Musculoskeletal Surgical History: Reports: None Other Musculoskeletal Surgeries/Procedures:: LEFT ANKLE SURGERY Oncologic Surgical History: Reports: None Dermatological Surgical History: Reports: None Social & Family History - Family History Family Medical History: No Pertinent Family History : Reports: Renal Disease/Insufficiency Neurological: Reports: TIA Endocrine/Metabolic: Reports: Diabetes, type II - Tobacco Use Tobacco Use Status *Q: Never Tobacco User Second Hand Smoke Exposure: No - Caffeine Use Caffeine Use: Reports: None Other Caffeine Use: states drinks decaffinated coffee Caffeine Use Comment: decaf coffee - Recreational Drug Use Recreational Drug Use: No - Living Situation & Occupation Living situation: Reports: with Family, Occupation: Employed ED ROS GENERAL - Review of Systems Review Of Systems: Comprehensive ROS is negative, except as noted in HPI. ED EXAM, GENERAL - Physical Exam Exam: See Below Exam Limited By: No Limitations General Appearance: Alert, WD/WN, Mild Distress, Obese Eye Exam: Bilateral Eye: EOMI, Normal Inspection, PERRL Ears: Normal External Exam, Normal Canal, Hearing Grossly Normal, Normal TMs Nose: Normal Inspection, Normal Mucosa, No Blood Throat/Mouth: Normal Inspection, Normal Lips, Normal Teeth, Normal Gums, Normal Oropharynx, Normal Voice, No Airway Compromise Head: Atraumatic, Normocephalic Neck: Normal Inspection, Supple, Non-Tender, Full Range of Motion Respiratory/Chest: No Respiratory Distress, Lungs Clear, Normal Breath Sounds, No Accessory Muscle Use, Chest Non-Tender Cardiovascular: Normal Peripheral Pulses, Regular Rate, Rhythm, No Edema, No Gallop, No JVD, No Murmur, No Rub GI/Abdominal: Normal Bowel Sounds, Soft, Non-Tender, No Organomegaly, No Distention, No Abnormal Bruit, No Mass (Male) Exam: Deferred Rectal (Males) Exam: Deferred Back Exam: Normal Inspection, Full Range of Motion, NT Extremities: Normal Inspection, Normal Range of Motion, Non-Tender, Normal Capillary Refill, No Pedal Edema Neurological: Alert, Oriented, CN II-XII Intact, Normal Cognition, Normal Gait, Normal Reflexes, No Motor/Sensory Deficits Psychiatric: Normal Affect, Normal Mood Skin Exam: Warm, Dry, Intact, Normal Color, No Rash Lymphatic: No Adenopathy Course - Vital Signs Last Recorded V/S: Last Vital Signs Temp 37.1 C 07/27/20 23:36 Pulse 65 07/27/20 23:36 Resp 18 03/18/21 23:36 BP 125/45 L 07/27/20 23:36 Pulse Ox 96 07/27/20 23:36 - Orders/Labs/Meds Orders: Active Orders 24 hr Category Date Time Status CULTURE BLOOD [BC] Stat Lab 07/28/20 01:25 Received Labs: Laboratory Tests 07/27/20 07/28/20 07/28/20 Range/Units 23:34 01:23 01:23 WBC (5.0-10.0) 10^3/uL RBC (4.6-6.2) 10^6/uL Hgb (14.0-18.0) g/dL Hct (40.0-54.0) % MCV (80-100) fL MCH (27.0-34.0) pg MCHC (33.0-35.0) g/dL Plt Count (150-450) 10^3/uL Neut % (Auto) (42.2-75.2) % Lymph % (Auto) (20.5-50.1) % [place] % (Auto) (2-8) % Eos % (Auto) (1.0-3.0) % Baso % (Auto) (0.0-1.0) % Sodium (136-145) mmol/L Potassium (3.5-5.1) mmol/L Chloride (98-107) mmol/L Carbon Dioxide (21-32) mmol/L Anion Gap (7-13) mEq/L BUN (7-18) mg/dL Creatinine (0.70-1.30) mg/dL Est Cr Clr Drug Dosing mL/min Estimated GFR (MDRD) BUN/Creatinine Ratio (No establ ref range) Glucose (74-99) mg/dL Lactic Acid (0.4-2.0) mmol/L Calcium (8.5-10.1) mg/dL Total Bilirubin (0.2-1.0) mg/dL AST (15-37) U/L ALT (16-63) U/L Alkaline Phosphatase (46-116) U/L Total Protein (6.4-8.2) g/dL Albumin (3.4-5.0) g/dL Globulin Albumin/Globulin Ratio Urine Color Yellow (YELLOW) Urine Appearance Slightly cloudy (CLEAR) Urine pH 6.5 (5.0-9.0) Ur Specific [place] 1.015 (1.005-1.030) Urine Protein 100 H (NEGATIVE) Urine Glucose (UA) Negative (NEGATIVE) Urine Ketones Negative (NEGATIVE) Urine Occult Blood Negative (NEGATIVE) Urine Nitrite Negative (NEGATIVE) Urine Bilirubin Negative (NEGATIVE) Urine Urobilinogen 0.2 (0.2-1.0) mg/dL Ur Leukocyte Esterase Negative (NEGATIVE) Urine RBC Not seen /HPF Urine WBC Not seen (0-5/HPF) /HPF Ur Epithelial Cells Few (NOT SEEN) /HPF Urine Bacteria Few (0-FEW/HPF) /HPF Urine Opiates Screen Negative (NEGATIVE) Ur Oxycodone Screen Negative (NEGATIVE) Urine Methadone Screen Negative (NEGATIVE) Ur Barbiturates Screen Negative (NEGATIVE) U Tricyclic Antidepress Negative (NEGATIVE) Ur Phencyclidine Scrn Negative (NEGATIVE) Ur Amphetamine Screen Negative (NEGATIVE) U Methamphetamines Scrn Negative (NEGATIVE) Urine MDMA Screen Negative (NEGATIVE) U Benzodiazepines Scrn Negative (NEGATIVE) Urine Cocaine Screen Negative (NEGATIVE) U Marijuana (THC) Screen Negative (NEGATIVE) Influenza Type A RNA Negative (NEGATIVE) Influenza Type B RNA Negative (NEGATIVE) SARS-CoV-2 RNA (MARGOTH) Negative (NEGATIVE) 07/28/20 07/28/20 07/28/20 Range/Units 01:25 01:25 01:25 WBC 8.2 (5.0-10.0) 10^3/uL RBC 3.02 L (4.6-6.2) 10^6/uL Hgb 7.9 L (14.0-18.0) g/dL Hct 25.4 L (40.0-54.0) % MCV 84.1 (80-100) fL MCH 26.2 L (27.0-34.0) pg MCHC 31.1 L (33.0-35.0) g/dL Plt Count 148 L (150-450) 10^3/uL Neut % (Auto) 73.3 (42.2-75.2) % Lymph % (Auto) 16.1 L (20.5-50.1) % [place] % (Auto) 6.6 (2-8) % Eos % (Auto) 3.8 H (1.0-3.0) % Baso % (Auto) 0.2 (0.0-1.0) % Sodium 143 (136-145) mmol/L Potassium 4.4 (3.5-5.1) mmol/L Chloride 106 (98-107) mmol/L Carbon Dioxide 25 (21-32) mmol/L Anion Gap 16.4 H (7-13) mEq/L BUN 60 H (7-18) mg/dL Creatinine 7.18 H* (0.70-1.30) mg/dL Est Cr Clr Drug Dosing 10.59 mL/min Estimated GFR (MDRD) 8 BUN/Creatinine Ratio 8.4 (No establ ref range) Glucose 82 (74-99) mg/dL Lactic Acid 0.6 (0.4-2.0) mmol/L Calcium 8.0 L (8.5-10.1) mg/dL Total Bilirubin 0.4 (0.2-1.0) mg/dL AST 12 L (15-37) U/L ALT 16 (16-63) U/L Alkaline Phosphatase 82 (46-116) U/L Total Protein 6.3 L (6.4-8.2) g/dL Albumin 2.7 L (3.4-5.0) g/dL Globulin 3.6 Albumin/Globulin Ratio 0.75 Urine Color (YELLOW) Urine Appearance (CLEAR) Urine pH (5.0-9.0) Ur Specific [place] (1.005-1.030) Urine Protein (NEGATIVE) Urine Glucose (UA) (NEGATIVE) Urine Ketones (NEGATIVE) Urine Occult Blood (NEGATIVE) Urine Nitrite (NEGATIVE) Urine Bilirubin (NEGATIVE) Urine Urobilinogen (0.2-1.0) mg/dL Ur Leukocyte Esterase (NEGATIVE) Urine RBC /HPF Urine WBC (0-5/HPF) /HPF Ur Epithelial Cells (NOT SEEN) /HPF Urine Bacteria (0-FEW/HPF) /HPF Urine Opiates Screen (NEGATIVE) Ur Oxycodone Screen (NEGATIVE) Urine Methadone Screen (NEGATIVE) Ur Barbiturates Screen (NEGATIVE) U Tricyclic Antidepress (NEGATIVE) Ur Phencyclidine Scrn (NEGATIVE) Ur Amphetamine Screen (NEGATIVE) U Methamphetamines Scrn (NEGATIVE) Urine MDMA Screen (NEGATIVE) U Benzodiazepines Scrn (NEGATIVE) Urine Cocaine Screen (NEGATIVE) U Marijuana (THC) Screen (NEGATIVE) Influenza Type A RNA (NEGATIVE) Influenza Type B RNA (NEGATIVE) SARS-CoV-2 RNA (MARGOTH) (NEGATIVE) Departure - Departure Time of Disposition: 02:11 Disposition: Home, Self-Care 01 Condition: Fair Clinical Impression: Fever, unknown origin - Discharge Information *PRESCRIPTION DRUG MONITORING PROGRAM REVIEWED*: Not Applicable *COPY OF PRESCRIPTION DRUG MONITORING REPORT IN PATIENT MELISSA: Not Applicable Forms: ED Department Discharge Care Plan Goals: The patient was advised of the examination and lab results during the visit. The patient was encouraged to continue with his home cares as directed. If the patient has any additional symptoms or concerns, the patient should either return to the emergency department or visit his primary care facility. Sepsis Event Note (ED) - Evaluation Sepsis Screening Result: No Definite Risk - Focused Exam Vital Signs: Vital Signs Temp Pulse Resp BP Pulse Ox 07/27/20 23:36 37.1 C 65 18 125/45 L 96 - My Orders Last 24 Hours: My Active Orders 07/28/20 01:25 CULTURE BLOOD [BC] Stat - Assessment/Plan Last 24 Hours: My Active Orders 07/28/20 01:25 CULTURE BLOOD [BC] Stat
[2020-07-28 01:50] LABS: ANION GAP 16.4 mEq/L (7-13)
== END 2020-07-28 02:20 | disposition home or self-care (01) ==
LOC: DL.ED 23:40
DX: R50.9 Fever, unspecified (principal); I25.10 Atherosclerotic heart disease of native coronary artery without angina pectoris; I50.9 Heart failure, unspecified; E78.00 Pure hypercholesterolemia, unspecified; I25.2 Old myocardial infarction; K21.9 Gastro-esophageal reflux disease without esophagitis; E11.22 Type 2 diabetes mellitus with diabetic chronic kidney disease; I13.0 Hypertensive heart and chronic kidney disease with heart failure and stage 1 through stage 4 chronic kidney disease, or unspecified chronic kidney disease; N18.9 Chronic kidney disease, unspecified; E11.42 Type 2 diabetes mellitus with diabetic polyneuropathy; Z79.899 Other long term (current) drug therapy; Z79.4 Long term (current) use of insulin; Z79.82 Long term (current) use of aspirin; Z20.822 Contact with and (suspected) exposure to COVID-19
CPT/HCPCS: 0240U; 36415; 80053; 80305; 81001; 83605; 85025; 87040; 99283

== ENCOUNTER 2020-08-04 22:08 | Emergency (ER) | payer MEDICARE, OTHER ==
[2020-08-04] MEDS ORDERED: Sodium Chloride 0.9% 1,000 ML IV SCH (22:30)
[2020-08-04] MEDS ORDERED: Acetaminophen 500 MG Tab PO ONE (22:49)
[2020-08-04 23:02] LABS: ANION GAP 19.6 mEq/L (7-13); CHLORIDE,CL 108 mmol/L (98-107); SODIUM,NA 144 mmol/L (136-145)
--- NOTE | 2020-08-04 23:02 | EDM.PDOC ---
ED HPI GENERAL MEDICAL PROBLEM - General Chief Complaint: Abdominal Pain Stated Complaint: STOMACH PAIN Time Seen by Provider: 08/04/20 22:30 Source of Information: Reports: Patient, Family (), RN - History of Present Illness INITIAL COMMENTS - FREE TEXT/NARRATIVE: 65 year old male with a history of ESRD on peritoneal dialysis who presents to the ER for diarrhea for over 12 hours. Patient's states that he ate a chicken sandwich yesterday and started having diarrhea beginning 9am. Patient states he has had about 20 episode of diarrhea with no blood. He denies any nausea/vomiting. He reports he had eaten toast early in the morning but did not had much of an appetite all day. He also had a low grade fever. Patient denies any chills, chest pain, palpations, or lower extremity edema. He admitsto SOB with exertion. Onset: Today Duration: Hour(s): (12) Location: Reports: Abdomen - Related Data Allergies Allergy/AdvReac Type Severity Reaction Status Date / Time No Known Allergies Allergy Verified 07/28/20 00:55 Home Meds: Home Meds Hydrocodone/Acetaminophen [Hydrocodone-Acetaminophen 5-325] 1 tab PO TID PRN 12/20/13 [History] Insulin Detemir [Levemir Flexpen] 25 unit SQ BID 01/19/14 [History] Ezetimibe [Zetia] 10 mg PO DAILY 05/15/16 [History] Gabapentin [Neurontin] 300 mg PO BEDTIME 05/15/16 [History] LORazepam 1 mg PO QID PRN 05/15/16 [History] Loratadine 10 mg PO DAILY 05/15/16 [History] Terazosin HCl [Terazosin] 5 mg PO BEDTIME 05/15/16 [History] Docusate Sodium 100 mg PO BID PRN #60 capsule 12/29/16 [Rx] Isosorbide Mononitrate [Imdur] 120 mg PO BID 05/27/17 [History] Calcium Citrate/Vitamin D3 [Calcium Citrate + D] 2 each PO BID 06/12/17 [History] Cyanocobalamin (Vitamin B-12) [Vitamin B-12] 100 mcg PO DAILY 06/12/17 [History] Furosemide 60 mg PO DAILY 06/12/17 [History] atorvaSTATin [Lipitor] 20 mg PO BEDTIME 06/12/17 [History] calcitrioL [Rocaltrol] 0.25 mcg PO DAILY 06/12/17 [History] carvediloL [Carvedilol] 50 mg PO BIDMEALS 06/12/17 [History] hydrALAZINE [Apresoline] 150 mg PO Q8H 06/12/17 [History] metOLazone [Zaroxolyn] 2.5 mg PO .48H 06/12/17 [History] Aspirin [Halfprin] 81 mg PO DAILY 06/22/18 [History] Ranitidine [Zantac] 150 mg PO BID 06/22/18 [History] Sevelamer Carbonate 800 mg PO BIDMEALS 06/22/18 [History] dilTIAZem HCL [Taztia Xt] 120 mg PO DAILY 06/22/18 [History] Insulin Lispro [HumaLOG] 0 unit SUBCUT ACBED vial 06/25/18 [Rx] Mupirocin Oint [Bactroban Oint] 1 applic TOP DAILY 09/15/18 [History] Past Medical History HEENT History: Reports: Impaired Vision Other HEENT History: WEARS CORRECTIVE LENSES; UPPER AND LOWER DENTURE PLATE Cardiovascular History: Reports: CAD, Heart Failure, High Cholesterol, Hypertension, [place], Stents Respiratory History: Reports: Bronchitis, Recurrent, Pneumonia, Recurrent, SOB Other Respiratory History: recent bronchitis Gastrointestinal History: Reports: Chronic Constipation, Colon Polyp, Gastritis, GERD Other Gastrointestinal History: gall stones Genitourinary History: Reports: BPH, Chronic Renal Insuffiency, Dialysis, Peritoneal Musculoskeletal History: Reports: Fracture Other Musculoskeletal History: missing tip of pinkie on left hand Neurological History: Reports: Headaches, Chronic, Neuropathy, Diabetic, Neuropathy, Peripheral Psychiatric History: Reports: Anxiety Endocrine/Metabolic History: Reports: Diabetes, Type II Hematologic History: Reports: B12 Deficiency Immunologic History: Reports: None Oncologic (Cancer) History: Reports: None Dermatologic History: Reports: None - Infectious Disease History Infectious Disease History: Reports: Chicken Pox - Past Surgical History Head Surgeries/Procedures: Reports: None HEENT Surgical History: Reports: None Cardiovascular Surgical History: Reports: Coronary Artery Stent Other Cardiovascular Surgeries/Procedures: 1 stent Respiratory Surgical History: Reports: None GI Surgical History: Reports: Cholecystectomy Male Surgical History: Reports: None Endocrine Surgical History: Reports: None Neurological Surgical History: Reports: None Musculoskeletal Surgical History: Reports: None Other Musculoskeletal Surgeries/Procedures:: LEFT ANKLE SURGERY Oncologic Surgical History: Reports: None Dermatological Surgical History: Reports: None Social & Family History - Family History Family Medical History: No Pertinent Family History : Reports: Renal Disease/Insufficiency Neurological: Reports: TIA Endocrine/Metabolic: Reports: Diabetes, type II - Caffeine Use Caffeine Use: Reports: None Other Caffeine Use: states drinks decaffinated coffee Caffeine Use Comment: decaf coffee - Living Situation & Occupation Living situation: Reports: with Family, Occupation: Employed ED ROS GENERAL - Review of Systems Review Of Systems: Comprehensive ROS is negative, except as noted in HPI. ED EXAM, GENERAL - Physical Exam Exam: See Below Exam Limited By: No Limitations General Appearance: Alert, Mild Distress Eye Exam: Bilateral Eye: Normal Inspection Ears: Normal External Exam, Normal Canal, Hearing Grossly Normal, Normal TMs Nose: Normal Inspection, Normal Mucosa Throat/Mouth: Normal Inspection, No Airway Compromise Neck: Normal Inspection Respiratory/Chest: Decreased Breath Sounds (mild on the lower lobes) Cardiovascular: Normal Peripheral Pulses, Regular Rate, Rhythm, No Edema, No Murmur Peripheral Pulses: 2+: Posterior Tibial (L), Posterior Tibial (R), Dorsalis Pedis (L), Dorsalis Pedis (R) GI/Abdominal: Normal Bowel Sounds, Soft, Non-Tender, Other (peritoneal dialysis catheter on the LMQ, clean/drry/intact) Back Exam: Normal Inspection Neurological: Alert, Oriented (x 3) Psychiatric: Flat Affect Skin Exam: Warm, Intact Course - Orders/Labs/Meds Orders: Active Orders 24 hr Category Date Time Status COMPREHENSIVE METABOLIC PN,CMP [CHEM] Stat Lab 08/04/20 22:29 Received CULTURE BLOOD [BC] Stat Lab 08/04/20 22:29 Received LACTIC ACID [CHEM] Stat Lab 08/04/20 22:29 Received MAGNESIUM [CHEM] Stat Lab 08/04/20 22:29 Received PHOSPHORUS [CHEM] Stat Lab 08/04/20 22:29 Received Sodium Chloride 0.9% [Normal Saline] 1,000 ml Med 08/04/20 22:30 Active IV ASDIRECTED Medication Orders Sodium Chloride (Normal Saline) 1,000 mls @ 999 mls/hr IV ASDIRECTED ELVI Last Admin: 08/04/20 22:30 Dose: 999 mls/hr Documented by: JOSIE Labs: Laboratory Tests 08/04/20 Range/Units 22:29 WBC 7.1 (5.0-10.0) 10^3/uL RBC 3.78 L (4.6-6.2) 10^6/uL Hgb 10.0 L D (14.0-18.0) g/dL Hct 31.6 L (40.0-54.0) % MCV 83.6 (80-100) fL MCH 26.5 L (27.0-34.0) pg MCHC 31.6 L (33.0-35.0) g/dL Plt Count 163 (150-450) 10^3/uL Neut % (Auto) 86.7 H (42.2-75.2) % Lymph % (Auto) 7.9 L (20.5-50.1) % [place] % (Auto) 3.2 (2-8) % Eos % (Auto) 1.8 (1.0-3.0) % Baso % (Auto) 0.4 (0.0-1.0) % Meds: Medications Generic Name Dose Route Start Last Admin Trade Name Freq PRN Reason Stop Dose Admin Sodium Chloride 1,000 mls @ 999 mls/hr 08/04/20 22:30 08/04/20 22:30 Normal Saline IV 999 mls/hr ASDIRECTED ELVI Administration Discontinued Medications Generic Name Dose Route Start Last Admin Trade Name Freq PRN Reason Stop Dose Admin Acetaminophen 1,000 mg 08/04/20 22:49 Acetaminophen 500 Mg Tab PO 08/04/20 22:50 ONETIME ONE - Re-Assessments/Exams Free Text/Narrative Re-Assessment/Exam: Reviewed exam findings, chest x-ray and lab results with patient and his . IV fluids and Tylenol administered with some relief. Patient was noted to have one episode of diarrhea with no blood. Departure - Departure Time of Disposition: 00:23 Disposition: Home, Self-Care 01 Condition: Fair Clinical Impression: Gastroenteritis, ESRD on peritoneal dialysis - Discharge Information Instructions: Viral Gastroenteritis, Adult, [id number] Additional Instructions: Encourage patient to push fluids especially the Pedialyte that he has at home. Recommended beginning with a bland diet and advancing as tolerated. Follow-up with PCP next week or return to the ER if symptoms worsen. Patient and his verbalized understanding. - My Orders Last 24 Hours: My Active Orders 08/04/20 22:29 COMPREHENSIVE METABOLIC PN,CMP [CHEM] Stat CULTURE BLOOD [BC] Stat LACTIC ACID [CHEM] Stat MAGNESIUM [CHEM] Stat PHOSPHORUS [CHEM] Stat 08/04/20 22:30 Sodium Chloride 0.9% [Normal Saline] 1,000 ml IV ASDIRECTED - Assessment/Plan Last 24 Hours: My Active Orders 08/04/20 22:29 COMPREHENSIVE METABOLIC PN,CMP [CHEM] Stat CULTURE BLOOD [BC] Stat LACTIC ACID [CHEM] Stat MAGNESIUM [CHEM] Stat PHOSPHORUS [CHEM] Stat 08/04/20 22:30 Sodium Chloride 0.9% [Normal Saline] 1,000 ml IV ASDIRECTED
[2020-08-04 23:06] VITALS: BP 150/64; PULSE 79
[2020-08-04 23:34] LABS: CORONAVIRUS COVID-19 NAA NEGATIVE (NEGATIVE)
--- NOTE | 2020-08-04 23:44 | CR ---
PROCEDURE INFORMATION: Exam: XR Chest Exam date and time: 08/04/2020 11:15 PM Age: 65 years old Clinical indication: Shortness of breath; Additional info: SOB, fevers TECHNIQUE: Imaging protocol: XR of the chest Views: 2 views. COMPARISON: CR Chest 1V Frontal 12/15/2018 9:19 PM FINDINGS: Lungs: Unremarkable. No consolidation. Pleural spaces: Unremarkable. No pleural effusion. No pneumothorax. Heart/Mediastinum: Unremarkable. No cardiomegaly. Bones/joints: Age appropriate. IMPRESSION: 1. No active disease of the chest. 2. No significant interval change when compared to the CR Chest 1V Frontal 12/15/2018 9:19 PM.
== END 2020-08-05 00:30 | disposition home or self-care (01) ==
LOC: DL.ED 22:08
DX: K52.9 Noninfective gastroenteritis and colitis, unspecified (principal); I13.2 Hypertensive heart and chronic kidney disease with heart failure and with stage 5 chronic kidney disease, or end stage renal disease; E11.22 Type 2 diabetes mellitus with diabetic chronic kidney disease; N18.6 End stage renal disease; I50.9 Heart failure, unspecified; I25.10 Atherosclerotic heart disease of native coronary artery without angina pectoris; E78.00 Pure hypercholesterolemia, unspecified; I25.2 Old myocardial infarction; K21.9 Gastro-esophageal reflux disease without esophagitis; E11.42 Type 2 diabetes mellitus with diabetic polyneuropathy; Z99.2 Dependence on renal dialysis; Z79.4 Long term (current) use of insulin; Z79.82 Long term (current) use of aspirin; Z79.899 Other long term (current) drug therapy; Z20.822 Contact with and (suspected) exposure to COVID-19; Z20.828 Contact with and (suspected) exposure to other viral communicable diseases
CPT/HCPCS: 0240U; 36415; 71046; 80053; 83605; 83735; 84100; 85025; 87040; 99285; A9270; J7030

== ENCOUNTER 2020-08-16 10:15 | Emergency (ER) | payer MEDICARE, OTHER ==
--- NOTE | 2020-08-16 10:28 | EDM.PDOC ---
ED HPI GENERAL MEDICAL PROBLEM - General Chief Complaint: Fever Stated Complaint: AMBULANCE Time Seen by Provider: 08/16/20 10:28 Source of Information: Reports: Patient, EMS, Old Records, RN, RN Notes Reviewed History Limitations: Reports: No Limitations - History of Present Illness INITIAL COMMENTS - FREE TEXT/NARRATIVE: Pt arrives to ER from home by ambulance with c/o onset of generalized body aches with fever last night. Admits to on/off nausea, and mild dry cough. Pt has ESRD on peritoneal dialysis. He claims his abdomen is not tender or painful, and his dialysis run off fluid has been clear. Pt took Ibuprofen and Tylenol about 2 or 3 hours ago. state pt cannot keep any food or liquid down, and state pt has become too weak to stand and walk without full assistance. Onset: Gradual Onset Date: 08/15/20 Duration: Constant Location: Reports: Generalized Quality: Reports: Ache Severity: Moderate Improves with: Reports: None Worsens with: Reports: None Associated Symptoms: Reports: No Other Symptoms Treatments REGIONAL COORDINATOR: Reports: Acetaminophen, NSAIDS - Related Data Allergies Allergy/AdvReac Type Severity Reaction Status Date / Time No Known Allergies Allergy Verified 07/28/20 00:55 Home Meds: Home Meds Hydrocodone/Acetaminophen [Hydrocodone-Acetaminophen 5-325] 1 tab PO TID PRN 12/20/13 [History] Insulin Detemir [Levemir Flexpen] 25 unit SQ BID 01/19/14 [History] Ezetimibe [Zetia] 10 mg PO DAILY 05/15/16 [History] Gabapentin [Neurontin] 300 mg PO BEDTIME 05/15/16 [History] LORazepam 1 mg PO QID PRN 05/15/16 [History] Loratadine 10 mg PO DAILY 05/15/16 [History] Terazosin HCl [Terazosin] 5 mg PO BEDTIME 05/15/16 [History] Docusate Sodium 100 mg PO BID PRN #60 capsule 12/29/16 [Rx] Isosorbide Mononitrate [Imdur] 120 mg PO BID 05/27/17 [History] Calcium Citrate/Vitamin D3 [Calcium Citrate + D] 2 each PO BID 06/12/17 [History ] Cyanocobalamin (Vitamin B-12) [Vitamin B-12] 100 mcg PO DAILY 06/12/17 [History] Furosemide 60 mg PO DAILY 06/12/17 [History] atorvaSTATin [Lipitor] 20 mg PO BEDTIME 06/12/17 [History] calcitrioL [Rocaltrol] 0.25 mcg PO DAILY 06/12/17 [History] carvediloL [Carvedilol] 50 mg PO BIDMEALS 06/12/17 [History] hydrALAZINE [Apresoline] 150 mg PO Q8H 06/12/17 [History] metOLazone [Zaroxolyn] 2.5 mg PO .48H 06/12/17 [History] Aspirin [Halfprin] 81 mg PO DAILY 06/22/18 [History] Ranitidine [Zantac] 150 mg PO BID 06/22/18 [History] Sevelamer Carbonate 800 mg PO BIDMEALS 06/22/18 [History] dilTIAZem HCL [Taztia Xt] 120 mg PO DAILY 06/22/18 [History] Insulin Lispro [HumaLOG] 0 unit SUBCUT ACBED vial 06/25/18 [Rx] Mupirocin Oint [Bactroban Oint] 1 applic TOP DAILY 09/15/18 [History] Past Medical History HEENT History: Reports: Impaired Vision Other HEENT History: WEARS CORRECTIVE LENSES; UPPER AND LOWER DENTURE PLATE Cardiovascular History: Reports: CAD, Heart Failure, High Cholesterol, Hypertension, [place], Stents Respiratory History: Reports: Bronchitis, Recurrent, Pneumonia, Recurrent, SOB Other Respiratory History: recent bronchitis Gastrointestinal History: Reports: Chronic Constipation, Colon Polyp, Gastritis, GERD Other Gastrointestinal History: gall stones Genitourinary History: Reports: BPH, Chronic Renal Insuffiency, Dialysis, Peritoneal Musculoskeletal History: Reports: Fracture Other Musculoskeletal History: missing tip of pinkie on left hand Neurological History: Reports: Headaches, Chronic, Neuropathy, Diabetic, Neuropathy, Peripheral Psychiatric History: Reports: Anxiety Endocrine/Metabolic History: Reports: Diabetes, Type II Hematologic History: Reports: B12 Deficiency Immunologic History: Reports: None Oncologic (Cancer) History: Reports: None Dermatologic History: Reports: None - Infectious Disease History Infectious Disease History: Reports: Chicken Pox - Past Surgical History Head Surgeries/Procedures: Reports: None HEENT Surgical History: Reports: None Cardiovascular Surgical History: Reports: Coronary Artery Stent Other Cardiovascular Surgeries/Procedures: 1 stent Respiratory Surgical History: Reports: None GI Surgical History: Reports: Cholecystectomy Male Surgical History: Reports: None Endocrine Surgical History: Reports: None Neurological Surgical History: Reports: None Musculoskeletal Surgical History: Reports: None Other Musculoskeletal Surgeries/Procedures:: LEFT ANKLE SURGERY Oncologic Surgical History: Reports: None Dermatological Surgical History: Reports: None Social & Family History - Family History Family Medical History: No Pertinent Family History : Reports: Renal Disease/Insufficiency Neurological: Reports: TIA Endocrine/Metabolic: Reports: Diabetes, type II - Caffeine Use Caffeine Use: Reports: Coffee, Soda Other Caffeine Use: states drinks decaffinated coffee Caffeine Use Comment: decaf coffee - Living Situation & Occupation Living situation: Reports: with Family, Occupation: Employed ED ROS GENERAL - Review of Systems Review Of Systems: Comprehensive ROS is negative, except as noted in HPI. ED EXAM, GENERAL - Physical Exam Exam: See Below Exam Limited By: No Limitations General Appearance: Alert, No Apparent Distress, Other (Ill but non-toxic appearing) Course - Vital Signs Text/Narrative:: VS: reviewed on RN record by me. - Orders/Labs/Meds Orders: Active Orders 24 hr Category Date Time Status Peripheral IV Care [RC] . DIRECTED Care 08/16/20 10:30 Active Chest 1V Frontal [CR] Stat Exams 08/16/20 11:41 Taken CULTURE BLOOD [BC] Stat Lab 08/16/20 10:38 Received CULTURE BLOOD [BC] Stat Lab 08/16/20 10:42 Received UA RFX PATTY AND CULT IF INDIC [URIN] Stat Lab 08/16/20 10:30 Ordered Sodium Chloride 0.9% [Normal Saline] 500 ml Med 08/16/20 12:15 Ordered IV .BOLUS Sodium Chloride 0.9% [Saline Flush] Med 08/16/20 10:29 Active 10 ml FLUSH ASDIRECTED PRN Blood Culture x2 Reflex Set [OM.PC] Stat Oth 08/16/20 10:29 Ordered Peripheral IV Insertion Adult [OM.PC] Stat Oth 08/16/20 10:30 Ordered Medication Orders Sodium Chloride (Normal Saline) 500 mls @ 250 mls/hr IV .BOLUS ELVI Sodium Chloride (Sodium Chloride 0.9% 10 Ml Syringe) 10 ml FLUSH ASDIRECTED PRN PRN Reason: Keep Vein Open Labs: Laboratory Tests 08/16/20 08/16/20 08/16/20 Range/Units 10:34 10:42 10:42 WBC 7.0 (5.0-10.0) 10^3/uL RBC 3.28 L (4.6-6.2) 10^6/uL Hgb 8.5 L D (14.0-18.0) g/dL Hct 27.7 L (40.0-54.0) % MCV 84.5 (80-100) fL MCH 25.9 L (27.0-34.0) pg MCHC 30.7 L (33.0-35.0) g/dL Plt Count 138 L (150-450) 10^3/uL Neut % (Auto) 75.3 H (42.2-75.2) % Lymph % (Auto) 11.8 L (20.5-50.1) % [place] % (Auto) 11.2 H (2-8) % Eos % (Auto) 1.6 (1.0-3.0) % Baso % (Auto) 0.1 (0.0-1.0) % PT 11.5 (9.0-12.0) SEC INR 1.1 (0.9-1.2) APTT 27.1 (22.0-34.0) SEC Sodium (136-145) mmol/L Potassium (3.5-5.1) mmol/L Chloride (98-107) mmol/L Carbon Dioxide (21-32) mmol/L Anion Gap (7-13) mEq/L BUN (7-18) mg/dL Creatinine (0.70-1.30) mg/dL Est Cr Clr Drug Dosing Estimated GFR (MDRD) BUN/Creatinine Ratio (No establ ref range) Glucose (70-99) mg/dL Lactic Acid (0.4-2.0) mmol/L Calcium (8.5-10.1) mg/dL Total Bilirubin (0.2-1.0) mg/dL AST (15-37) U/L ALT (16-63) U/L Alkaline Phosphatase (46-116) U/L B-Natriuretic Peptide (0-100) pg/ml Total Protein (6.4-8.2) g/dL Albumin (3.4-5.0) g/dL Globulin Albumin/Globulin Ratio Amylase (25-115) U/L Lipase (73-393) U/L Ketones Influenza Type A RNA Negative (NEGATIVE) Influenza Type B RNA Negative (NEGATIVE) SARS-CoV-2 RNA (MARGOTH) Positive H (NEGATIVE) 08/16/20 08/16/20 08/16/20 Range/Units 10:42 10:42 10:42 WBC (5.0-10.0) 10^3/uL RBC (4.6-6.2) 10^6/uL Hgb (14.0-18.0) g/dL Hct (40.0-54.0) % MCV (80-100) fL MCH (27.0-34.0) pg MCHC (33.0-35.0) g/dL Plt Count (150-450) 10^3/uL Neut % (Auto) (42.2-75.2) % Lymph % (Auto) (20.5-50.1) % [place] % (Auto) (2-8) % Eos % (Auto) (1.0-3.0) % Baso % (Auto) (0.0-1.0) % PT (9.0-12.0) SEC INR (0.9-1.2) APTT (22.0-34.0) SEC Sodium 142 (136-145) mmol/L Potassium 4.5 (3.5-5.1) mmol/L Chloride 106 (98-107) mmol/L Carbon Dioxide 25 (21-32) mmol/L Anion Gap 15.5 H (7-13) mEq/L BUN 54 H (7-18) mg/dL Creatinine 7.03 H* (0.70-1.30) mg/dL Est Cr Clr Drug Dosing TNP Estimated GFR (MDRD) 8 BUN/Creatinine Ratio 7.7 (No establ ref range) Glucose 138 H (70-99) mg/dL Lactic Acid 0.8 (0.4-2.0) mmol/L Calcium 8.0 L (8.5-10.1) mg/dL Total Bilirubin 0.5 (0.2-1.0) mg/dL AST 17 (15-37) U/L ALT 26 (16-63) U/L Alkaline Phosphatase 81 (46-116) U/L B-Natriuretic Peptide 433 H (0-100) pg/ml Total Protein 6.3 L (6.4-8.2) g/dL Albumin 2.9 L (3.4-5.0) g/dL Globulin 3.4 Albumin/Globulin Ratio 0.85 Amylase 38 (25-115) U/L Lipase 68 L (73-393) U/L Ketones Negative Influenza Type A RNA (NEGATIVE) Influenza Type B RNA (NEGATIVE) SARS-CoV-2 RNA (MARGOTH) (NEGATIVE) Meds: Medications Generic Name Dose Route Start Last Admin Trade Name Freq PRN Reason Stop Dose Admin Sodium Chloride 500 mls @ 250 mls/hr 08/16/20 12:15 Normal Saline IV .BOLUS ELVI Sodium Chloride 10 ml 08/16/20 10:29 Sodium Chloride 0.9% 10 Ml Syringe FLUSH ASDIRECTED PRN Keep Vein Open Discontinued Medications Generic Name Dose Route Start Last Admin Trade Name Freq PRN Reason Stop Dose Admin Dexamethasone 6 mg 08/16/20 12:04 Dexamethasone 4 Mg/Ml Sdv IVPUSH 08/16/20 12:05 ONETIME ONE Ondansetron HCl 4 mg 08/16/20 12:04 Ondansetron 4 Mg/2 Ml Sdv IV 08/16/20 12:05 ONETIME ONE - Radiology Interpretation Free Text/Narrative:: XR Chest: patchy perihilar ground glass opacities. Departure - Departure Time of Disposition: 12:14 Disposition: DC/Tfer to Acute Hospital 02 Condition: Serious Clinical Impression: COVID-19, ESRD on peritoneal dialysis, Generalized weakness Anemia Qualifiers: Anemia type: due to chronic kidney disease Chronic kidney disease stage: on chronic dialysis Qualified Code(s): N18.6 - End stage renal disease - Discharge Information *PRESCRIPTION DRUG MONITORING PROGRAM REVIEWED*: Not Applicable *COPY OF PRESCRIPTION DRUG MONITORING REPORT IN PATIENT MELISSA: Not Applicable Forms: ED Department Discharge, Interfacility Transfer EMTALA - My Orders Last 24 Hours: My Active Orders 08/16/20 10:29 Sodium Chloride 0.9% [Saline Flush] 10 ml FLUSH ASDIRECTED PRN Blood Culture x2 Reflex Set [OM.PC] Stat 08/16/20 10:30 Peripheral IV Care [RC] . DIRECTED UA RFX PATTY AND CULT IF INDIC [URIN] Stat Peripheral IV Insertion Adult [OM.PC] Stat 08/16/20 10:38 CULTURE BLOOD [BC] Stat 08/16/20 10:42 CULTURE BLOOD [BC] Stat 08/16/20 11:41 Chest 1V Frontal [CR] Stat 08/16/20 12:15 Sodium Chloride 0.9% [Normal Saline] 500 ml IV .BOLUS - Assessment/Plan Last 24 Hours: My Active Orders 08/16/20 10:29 Sodium Chloride 0.9% [Saline Flush] 10 ml FLUSH ASDIRECTED PRN Blood Culture x2 Reflex Set [OM.PC] Stat 08/16/20 10:30 Peripheral IV Care [RC] . DIRECTED UA RFX PATTY AND CULT IF INDIC [URIN] Stat Peripheral IV Insertion Adult [OM.PC] Stat 08/16/20 10:38 CULTURE BLOOD [BC] Stat 08/16/20 10:42 CULTURE BLOOD [BC] Stat 08/16/20 11:41 Chest 1V Frontal [CR] Stat 08/16/20 12:15 Sodium Chloride 0.9% [Normal Saline] 500 ml IV .BOLUS
[2020-08-16] MEDS ORDERED: Sodium Chloride 0.9% 10 ML Syringe FLUSH PRN (10:29)
[2020-08-16 11:15] LABS: ANION GAP 15.5 mEq/L (7-13); CHLORIDE,CL 106 mmol/L (98-107); SODIUM,NA 142 mmol/L (136-145)
[2020-08-16 11:20] LABS: PTT,PARTIAL THROMBOPLSTIN TIME 27.1 SEC (22.0-34.0)
[2020-08-16 11:38] LABS: CORONAVIRUS COVID-19 NAA POSITIVE (NEGATIVE)
[2020-08-16] MEDS ORDERED: Dexamethasone 4 MG/ML SDV IVPUSH ONE (12:04)
[2020-08-16] MEDS ORDERED: Ondansetron 4 MG/2 ML SDV IV ONE (12:04)
[2020-08-16] MEDS ORDERED: Sodium Chloride 0.9% 500 ML IV SCH (12:15)
[2020-08-16 12:21] VITALS: BP 130/58; PULSE 78
--- NOTE | 2020-08-16 12:47 | CR ---
EXAMINATION: Chest 1V Frontal SEX: Male AGE: 65 years CLINICAL HISTORY: 65-year-old obese male with COUGH (COVID positive). Comparison CXR 04 August 2020. INTERPRETATION: 1. Borderline cardiomegaly and chronic shaggy prominence of the perihilar lung markings chronic and unchanged. BNP? 2. No new cephalization of vascular flow, alveolar edema or dependent pleural fluid accumulation (effusion). 3. No new alveolar infiltrate, atelectasis or collapse. 4. No new peripheral groundglass" interstitial lung densities. 5. No pneumothorax or pneumomediastinum. Midline tracheal bronchial airway unremarkable. Conclusion: No acute new cardiopulmonary abnormality.
== END 2020-08-16 12:57 ==
LOC: DL.ED 10:15
DX: U07.1 COVID-19 (principal); I13.2 Hypertensive heart and chronic kidney disease with heart failure and with stage 5 chronic kidney disease, or end stage renal disease; E11.22 Type 2 diabetes mellitus with diabetic chronic kidney disease; N18.6 End stage renal disease; I50.9 Heart failure, unspecified; I25.10 Atherosclerotic heart disease of native coronary artery without angina pectoris; I25.2 Old myocardial infarction; K21.9 Gastro-esophageal reflux disease without esophagitis; E11.42 Type 2 diabetes mellitus with diabetic polyneuropathy; Z99.2 Dependence on renal dialysis; Z79.4 Long term (current) use of insulin; Z79.82 Long term (current) use of aspirin; Z79.899 Other long term (current) drug therapy
CPT/HCPCS: 0240U; 36415; 71045; 80053; 82009; 82150; 83605; 83690; 83880; 85025; 85610; 85730; 87040; 96374; 96375; 99284; 99285-25; J1100; J2405; J7040

== ENCOUNTER 2020-08-28 13:29 | Emergency (ER) | payer MEDICARE ==
[2020-08-28 14:04] VITALS: PULSE 80
[2020-08-28 14:45] LABS: ANION GAP 20.3 mEq/L (7-13)
--- NOTE | 2020-08-28 15:54 | EDM.PDOC ---
ED HPI GENERAL MEDICAL PROBLEM - General Chief Complaint: Respiratory Problem Time Seen by Provider: 08/28/20 13:40 Source of Information: Reports: Patient History Limitations: Reports: No Limitations - History of Present Illness INITIAL COMMENTS - FREE TEXT/NARRATIVE: This 65 yo male patient was brought to the ED by [facility] due to increased shortness of breath and weakness. The patient was diagnosed with COVID on 08/16/20 and was eventually transferred to [facility] in [place]. The patient was discharged from [facility] on Friday, but has been experiencing increased weakness since that time. Onset: Gradual Duration: Day(s):, Constant Location: Reports: Generalized Quality: Reports: Other Severity: Moderate Improves with: Reports: None Worsens with: Reports: None Context: Reports: Other Associated Symptoms: Reports: No Other Symptoms - Related Data Allergies Allergy/AdvReac Type Severity Reaction Status Date / Time No Known Allergies Allergy Verified 08/28/20 13:52 Home Meds: Home Meds Hydrocodone/Acetaminophen [Hydrocodone-Acetaminophen 5-325] 1 tab PO TID PRN 12/20/13 [History] Insulin Detemir [Levemir Flexpen] 25 unit SQ BID 01/19/14 [History] Ezetimibe [Zetia] 10 mg PO DAILY 05/15/16 [History] Gabapentin [Neurontin] 300 mg PO BEDTIME 05/15/16 [History] LORazepam 1 mg PO QID PRN 05/15/16 [History] Loratadine 10 mg PO DAILY 05/15/16 [History] Terazosin HCl [Terazosin] 5 mg PO BEDTIME 05/15/16 [History] Docusate Sodium 100 mg PO BID PRN #60 capsule 12/29/16 [Rx] Isosorbide Mononitrate [Imdur] 120 mg PO BID 05/27/17 [History] Calcium Citrate/Vitamin D3 [Calcium Citrate + D] 2 each PO BID 06/12/17 [History] Cyanocobalamin (Vitamin B-12) [Vitamin B-12] 100 mcg PO DAILY 06/12/17 [History] Furosemide 60 mg PO DAILY 06/12/17 [History] atorvaSTATin [Lipitor] 20 mg PO BEDTIME 06/12/17 [History] calcitrioL [Rocaltrol] 0.25 mcg PO DAILY 06/12/17 [History] carvediloL [Carvedilol] 50 mg PO BIDMEALS 06/12/17 [History] hydrALAZINE [Apresoline] 150 mg PO Q8H 06/12/17 [History] metOLazone [Zaroxolyn] 2.5 mg PO .48H 06/12/17 [History] Aspirin [Halfprin] 81 mg PO DAILY 06/22/18 [History] Ranitidine [Zantac] 150 mg PO BID 06/22/18 [History] Sevelamer Carbonate 800 mg PO BIDMEALS 06/22/18 [History] dilTIAZem HCL [Taztia Xt] 120 mg PO DAILY 06/22/18 [History] Insulin Lispro [HumaLOG] 0 unit SUBCUT ACBED vial 06/25/18 [Rx] Mupirocin Oint [Bactroban Oint] 1 applic TOP DAILY 09/15/18 [History] Past Medical History HEENT History: Reports: Impaired Vision Other HEENT History: WEARS CORRECTIVE LENSES; UPPER AND LOWER DENTURE PLATE Cardiovascular History: Reports: CAD, Heart Failure, High Cholesterol, Hypertension, NM, Stents Respiratory History: Reports: Bronchitis, Recurrent, Pneumonia, Recurrent, SOB Other Respiratory History: recent bronchitis Gastrointestinal History: Reports: Chronic Constipation, Colon Polyp, Gastritis, GERD Other Gastrointestinal History: gall stones Genitourinary History: Reports: BPH, Chronic Renal Insuffiency, Dialysis, Peritoneal Musculoskeletal History: Reports: Fracture Other Musculoskeletal History: missing tip of pinkie on left hand Neurological History: Reports: Headaches, Chronic, Neuropathy, Diabetic, Neuropathy, Peripheral Psychiatric History: Reports: Anxiety Endocrine/Metabolic History: Reports: Diabetes, Type II Hematologic History: Reports: B12 Deficiency Immunologic History: Reports: None Oncologic (Cancer) History: Reports: None Dermatologic History: Reports: None - Infectious Disease History Infectious Disease History: Reports: Chicken Pox - Past Surgical History Head Surgeries/Procedures: Reports: None HEENT Surgical History: Reports: None Cardiovascular Surgical History: Reports: Coronary Artery Stent Other Cardiovascular Surgeries/Procedures: 1 stent Respiratory Surgical History: Reports: None GI Surgical History: Reports: Cholecystectomy Male Surgical History: Reports: None Endocrine Surgical History: Reports: None Neurological Surgical History: Reports: None Musculoskeletal Surgical History: Reports: None Other Musculoskeletal Surgeries/Procedures:: LEFT ANKLE SURGERY Oncologic Surgical History: Reports: None Dermatological Surgical History: Reports: None Social & Family History - Family History Family Medical History: No Pertinent Family History : Reports: Renal Disease/Insufficiency Neurological: Reports: TIA Endocrine/Metabolic: Reports: Diabetes, type II - Tobacco Use Tobacco Use Status *Q: Former Tobacco User Used Tobacco, but Quit: Yes Month/Year Tobacco Last Used: years ago - Caffeine Use Caffeine Use: Reports: Coffee Other Caffeine Use: states drinks decaffinated coffee Caffeine Use Comment: decaf coffee - Recreational Drug Use Recreational Drug Use: No - Living Situation & Occupation Living situation: Reports: with Family, Occupation: Employed ED ROS GENERAL - Review of Systems Review Of Systems: Comprehensive ROS is negative, except as noted in HPI. ED EXAM, GENERAL - Physical Exam Exam: See Below Exam Limited By: No Limitations General Appearance: Alert, WD/WN, Moderate Distress, Obese Eye Exam: Bilateral Eye: EOMI, Normal Inspection, PERRL Ears: Normal External Exam, Normal Canal, Hearing Grossly Normal, Normal TMs Nose: Normal Inspection, Normal Mucosa, No Blood Throat/Mouth: Normal Inspection, Normal Lips, Normal Teeth, Normal Gums, Normal Oropharynx, Normal Voice, No Airway Compromise Head: Atraumatic, Normocephalic Neck: Normal Inspection, Supple, Non-Tender, Full Range of Motion Respiratory/Chest: Rhonchi (diffuse) Cardiovascular: Normal Peripheral Pulses, Regular Rate, Rhythm, No Edema, No Gallop, No JVD, No Murmur, No Rub GI/Abdominal: Normal Bowel Sounds, Soft, Non-Tender, No Organomegaly, No Distention, No Abnormal Bruit, No Mass (Male) Exam: Deferred Rectal (Males) Exam: Deferred Back Exam: Normal Inspection, Full Range of Motion, NT Extremities: Normal Inspection, Normal Range of Motion, Non-Tender, Normal Capillary Refill, No Pedal Edema Neurological: Alert, Oriented, CN II-XII Intact, Normal Cognition, Normal Gait, Normal Reflexes, No Motor/Sensory Deficits Psychiatric: Normal Affect, Normal Mood Skin Exam: Warm, Dry, Intact, Normal Color, No Rash Lymphatic: No Adenopathy Course - Vital Signs Last Recorded V/S: Last Vital Signs Temp 37.1 C 08/28/20 13:52 Pulse 80 08/28/20 13:52 Resp 28 H 08/28/20 13:52 BP 140/71 08/28/20 13:52 Pulse Ox 90 L 08/28/20 13:52 - Orders/Labs/Meds Orders: Active Orders 24 hr Category Date Time Status EKG Documentation Completion [RC] STAT Care 08/28/20 14:01 Active COVID-19/FLU A+B [MOLEC] Urgent Lab 08/28/20 15:39 Ordered CULTURE BLOOD [BC] Stat Lab 08/28/20 14:15 Received D-DIMER QUANTITATIVE [COAG] Stat Lab 08/28/20 15:39 Ordered Labs: Laboratory Tests 08/28/20 08/28/20 08/28/20 Range/Units 14:15 14:15 14:15 WBC 12.2 H (5.0-10.0) 10^3/uL RBC 3.82 L (4.6-6.2) 10^6/uL Hgb 9.7 L (14.0-18.0) g/dL Hct 30.6 L (40.0-54.0) % MCV 80.1 D (80-100) fL MCH 25.4 L (27.0-34.0) pg MCHC 31.7 L (33.0-35.0) g/dL Plt Count 181 (150-450) 10^3/uL Neut % (Auto) (42.2-75.2) % Add Manual Diff Yes Neutrophils % (Manual) 87 H (42-75) % Band Neutrophils % 1 % Lymphocytes % (Manual) 7 L (20-50) % Monocytes % (Manual) 2 (2-8) % Eosinophils % (Manual) 3 (1-3) % Anisocytosis 1+ slight Sodium 138 (136-145) mmol/L Potassium 4.3 (3.5-5.1) mmol/L Chloride 102 (98-107) mmol/L Carbon Dioxide 20 L (21-32) mmol/L Anion Gap 20.3 H (7-13) mEq/L BUN 112 H D (7-18) mg/dL Creatinine 7.52 H* (0.70-1.30) mg/dL Est Cr Clr Drug Dosing 10.75 mL/min Estimated GFR (MDRD) 7 BUN/Creatinine Ratio 14.9 (No establ ref range) Glucose 203 H (70-99) mg/dL Lactic Acid 0.8 (0.4-2.0) mmol/L Calcium 7.5 L (8.5-10.1) mg/dL Total Bilirubin 0.7 (0.2-1.0) mg/dL AST 33 (15-37) U/L ALT 70 H (16-63) U/L Alkaline Phosphatase 137 H (46-116) U/L Troponin I 0.023 (0.000-0.056) ng/mL B-Natriuretic Peptide 238 H (0-100) pg/ml Total Protein 6.3 L (6.4-8.2) g/dL Albumin 2.0 L (3.4-5.0) g/dL Globulin 4.3 Albumin/Globulin Ratio 0.47 Departure - Departure Time of Disposition: 15:51 Disposition: DC/Tfer to Acute Hospital 02 Condition: Poor Clinical Impression: Weakness, COVID-19 - Discharge Information *PRESCRIPTION DRUG MONITORING PROGRAM REVIEWED*: Not Applicable *COPY OF PRESCRIPTION DRUG MONITORING REPORT IN PATIENT MELISSA: Not Applicable Care Plan Goals: Discussed the patient's history, examination and lab results with Dr. Maciel. Dr. Maciel accepted the patient for continued evaluation and management through [facility] in [place]. The patient will be transported by [facility]. Sepsis Event Note (ED) - Evaluation Sepsis Screening Result: No Definite Risk - Focused Exam Vital Signs: Vital Signs Temp Pulse Resp BP Pulse Ox 08/28/20 13:52 37.1 C 80 28 H 140/71 90 L - My Orders Last 24 Hours: My Active Orders 08/28/20 14:01 EKG Documentation Completion [RC] STAT 08/28/20 14:15 CULTURE BLOOD [BC] Stat 08/28/20 15:39 COVID-19/FLU A+B [MOLEC] Urgent D-DIMER QUANTITATIVE [COAG] Stat - Assessment/Plan Last 24 Hours: My Active Orders 08/28/20 14:01 EKG Documentation Completion [RC] STAT 08/28/20 14:15 CULTURE BLOOD [BC] Stat 08/28/20 15:39 COVID-19/FLU A+B [MOLEC] Urgent D-DIMER QUANTITATIVE [COAG] Stat
[2020-08-28 15:55] VITALS: BP 134/53
[2020-08-28 16:42] LABS: CORONAVIRUS COVID-19 NAA POSITIVE (NEGATIVE)
== END 2020-08-28 16:10 ==
LOC: DL.ED 13:29
DX: U07.1 COVID-19 (principal); I25.10 Atherosclerotic heart disease of native coronary artery without angina pectoris; E78.00 Pure hypercholesterolemia, unspecified; I13.0 Hypertensive heart and chronic kidney disease with heart failure and stage 1 through stage 4 chronic kidney disease, or unspecified chronic kidney disease; I50.9 Heart failure, unspecified; K21.9 Gastro-esophageal reflux disease without esophagitis; N18.9 Chronic kidney disease, unspecified; E11.42 Type 2 diabetes mellitus with diabetic polyneuropathy; E11.22 Type 2 diabetes mellitus with diabetic chronic kidney disease; I25.2 Old myocardial infarction; Z95.5 Presence of coronary angioplasty implant and graft; Z79.4 Long term (current) use of insulin; Z79.899 Other long term (current) drug therapy; Z79.82 Long term (current) use of aspirin; Z99.2 Dependence on renal dialysis; Z87.891 Personal history of nicotine dependence
CPT/HCPCS: 0240U; 36415; 80053; 83605; 83880; 84484; 85025; 85379; 87040; 93005; 99284; 99285-25

== ENCOUNTER 2020-09-25 08:45 | Emergency (ER) | payer MEDICARE, OTHER ==
--- NOTE | 2020-09-25 09:09 | EDM.PDOC ---
ED HPI GENERAL MEDICAL PROBLEM - General Chief Complaint: Cardiovascular Problem Stated Complaint: BY AMBULANCE Time Seen by Provider: 09/25/20 09:10 Source of Information: Reports: Patient History Limitations: Reports: No Limitations - History of Present Illness INITIAL COMMENTS - FREE TEXT/NARRATIVE: This 65 yo male patient was brought to the ED by [facility] due to low blood pressure. The patient reports his normally takes his blood pressure, but she noticed it was low this morning. The patient reports last night he started to feel light headed when he sat up which has continued through today. The patient does have a history of diabetes, hypertension and paratineal dialysis. The patient reports he has been taking all of his medications as prescribed except for his med ications this morning. The patient did have COVID on 08/16/20 for which he was hospitalized for. The patient reports he did do his dialysis last night. Onset Date: 09/24/20 Duration: Constant Location: Reports: Generalized Quality: Reports: Other Severity: Moderate Improves with: Reports: None Worsens with: Reports: None Context: Reports: Other Associated Symptoms: Reports: No Other Symptoms - Related Data Allergies Allergy/AdvReac Type Severity Reaction Status Date / Time No Known Allergies Allergy Verified 08/28/20 13:52 Home Meds: Home Meds Hydrocodone/Acetaminophen [Hydrocodone-Acetaminophen 5-325] 1 tab PO TID PRN 12/20/13 [History] Insulin Detemir [Levemir Flexpen] 25 unit SQ BID 01/19/14 [History] Ezetimibe [Zetia] 10 mg PO DAILY 05/15/16 [History] Gabapentin [Neurontin] 300 mg PO BEDTIME 05/15/16 [History] LORazepam 1 mg PO QID PRN 05/15/16 [History] Loratadine 10 mg PO DAILY 05/15/16 [History] Terazosin HCl [Terazosin] 5 mg PO BEDTIME 05/15/16 [History] Docusate Sodium 100 mg PO BID PRN #60 capsule 12/29/16 [Rx] Isosorbide Mononitrate [Imdur] 120 mg PO BID 05/27/17 [History] Calcium Citrate/Vitamin D3 [Calcium Citrate + D] 2 each PO BID 06/12/17 [History] Cyanocobalamin (Vitamin B-12) [Vitamin B-12] 100 mcg PO DAILY 06/12/17 [History] Furosemide 60 mg PO DAILY 06/12/17 [History] atorvaSTATin [Lipitor] 20 mg PO BEDTIME 06/12/17 [History] calcitrioL [Rocaltrol] 0.25 mcg PO DAILY 06/12/17 [History] carvediloL [Carvedilol] 50 mg PO BIDMEALS 06/12/17 [History] hydrALAZINE [Apresoline] 150 mg PO Q8H 06/12/17 [History] metOLazone [Zaroxolyn] 2.5 mg PO .48H 06/12/17 [History] Aspirin [Halfprin] 81 mg PO DAILY 06/22/18 [History] Ranitidine [Zantac] 150 mg PO BID 06/22/18 [History] Sevelamer Carbonate 800 mg PO BIDMEALS 06/22/18 [History] dilTIAZem HCL [Taztia Xt] 120 mg PO DAILY 06/22/18 [History] Insulin Lispro [HumaLOG] 0 unit SUBCUT ACBED vial 06/25/18 [Rx] Mupirocin Oint [Bactroban Oint] 1 applic TOP DAILY 09/15/18 [History] Past Medical History HEENT History: Reports: Impaired Vision Other HEENT History: WEARS CORRECTIVE LENSES; UPPER AND LOWER DENTURE PLATE Cardiovascular History: Reports: CAD, Heart Failure, High Cholesterol, Hypertension, [place], Stents Respiratory History: Reports: Bronchitis, Recurrent, Pneumonia, Recurrent, SOB Other Respiratory History: recent bronchitis Gastrointestinal History: Reports: Chronic Constipation, Colon Polyp, Gastritis, GERD Other Gastrointestinal History: gall stones Genitourinary History: Reports: BPH, Chronic Renal Insuffiency, Dialysis, Peritoneal Musculoskeletal History: Reports: Fracture Other Musculoskeletal History: missing tip of pinkie on left hand Neurological History: Reports: Headaches, Chronic, Neuropathy, Diabetic, Neuropathy, Peripheral Psychiatric History: Reports: Anxiety Endocrine/Metabolic History: Reports: Diabetes, Type II Hematologic History: Reports: B12 Deficiency Immunologic History: Reports: None Oncologic (Cancer) History: Reports: None Dermatologic History: Reports: None - Infectious Disease History Infectious Disease History: Reports: Chicken Pox - Past Surgical History Head Surgeries/Procedures: Reports: None HEENT Surgical History: Reports: None Cardiovascular Surgical History: Reports: Coronary Artery Stent Other Cardiovascular Surgeries/Procedures: 1 stent Respiratory Surgical History: Reports: None GI Surgical History: Reports: Cholecystectomy Male Surgical History: Reports: None Endocrine Surgical History: Reports: None Neurological Surgical History: Reports: None Musculoskeletal Surgical History: Reports: None Other Musculoskeletal Surgeries/Procedures:: LEFT ANKLE SURGERY Oncologic Surgical History: Reports: None Dermatological Surgical History: Reports: None Social & Family History - Family History Family Medical History: No Pertinent Family History : Reports: Renal Disease/Insufficiency Neurological: Reports: TIA Endocrine/Metabolic: Reports: Diabetes, type II - Caffeine Use Caffeine Use: Reports: Coffee Other Caffeine Use: states drinks decaffinated coffee Caffeine Use Comment: decaf coffee - Living Situation & Occupation Living situation: Reports: with Family, Occupation: Employed ED ROS GENERAL - Review of Systems Review Of Systems: Comprehensive ROS is negative, except as noted in HPI. ED EXAM, GENERAL - Physical Exam Exam: See Below Exam Limited By: No Limitations General Appearance: Alert, WD/WN, Moderate Distress Eye Exam: Bilateral Eye: EOMI, Normal Inspection, PERRL Ears: Normal External Exam, Normal Canal, Hearing Grossly Normal, Normal TMs Nose: Normal Inspection, Normal Mucosa, No Blood Throat/Mouth: Normal Inspection, Normal Lips, Normal Teeth, Normal Gums, Normal Oropharynx, Normal Voice, No Airway Compromise Head: Atraumatic, Normocephalic Neck: Normal Inspection, Supple, Non-Tender, Full Range of Motion Respiratory/Chest: No Respiratory Distress, Lungs Clear, Normal Breath Sounds, No Accessory Muscle Use, Chest Non-Tender Cardiovascular: No Edema, No Gallop, No JVD, No Murmur, No Rub, Other (Irregular) GI/Abdominal: Normal Bowel Sounds, Soft, Non-Tender, No Organomegaly, No Distention, No Abnormal Bruit, No Mass (Male) Exam: Deferred Rectal (Males) Exam: Deferred Back Exam: Normal Inspection, Full Range of Motion, NT Extremities: Normal Inspection, Normal Range of Motion, Non-Tender, Normal Capillary Refill, No Pedal Edema Neurological: Alert, Oriented, CN II-XII Intact, Normal Cognition, Normal Gait, Normal Reflexes, No Motor/Sensory Deficits Psychiatric: Normal Affect, Normal Mood Skin Exam: Warm, Dry, Intact, Normal Color, No Rash Lymphatic: No Adenopathy #1 Interpretation EKG Date: 09/25/20 Time: 09:01 Rhythm: Other (Intermittent ventricular bigeminy) [place]: Normal P-Wave: Present QRS: Wide Comparison: Change From Previous EKG Course - Vital Signs Last Recorded V/S: Last Vital Signs Temp 36.2 C 09/25/20 09:13 Pulse 58 L 09/25/20 09:13 Resp 18 09/25/20 09:13 BP 103/58 L 09/25/20 09:13 Pulse Ox 95 09/25/20 09:13 Orthostatic Blood Pressure [ 63/35 Standing] Orthostatic Blood Pressure [ 68/48 Sitting] Orthostatic Blood Pressure [ 103/58 Supine] - Orders/Labs/Meds Orders: Active Orders 24 hr Category Date Time Status EKG Documentation Completion [RC] STAT Care 09/25/20 08:54 Active Sodium Chloride 0.9% [Normal Saline] 1,000 ml Med 09/25/20 09:52 Ordered IV .BOLUS Labs: Laboratory Tests 09/25/20 09/25/20 Range/Units 09:06 09:06 WBC 10.6 H (5.0-10.0) 10^3/uL RBC 3.88 L (4.6-6.2) 10^6/uL Hgb 9.9 L (14.0-18.0) g/dL Hct 32.3 L (40.0-54.0) % MCV 83.2 D (80-100) fL MCH 25.5 L (27.0-34.0) pg MCHC 30.7 L (33.0-35.0) g/dL Plt Count 345 D (150-450) 10^3/uL Neut % (Auto) 81.5 H (42.2-75.2) % Lymph % (Auto) 12.1 L (20.5-50.1) % Henry % (Auto) 4.9 (2-8) % Eos % (Auto) 1.2 (1.0-3.0) % Baso % (Auto) 0.3 (0.0-1.0) % Add Manual Diff Yes Neutrophils % (Manual) 76 H (42-75) % Band Neutrophils % 4 % Lymphocytes % (Manual) 10 L (20-50) % Monocytes % (Manual) 6 (2-8) % Eosinophils % (Manual) 2 (1-3) % Basophils % (Manual) 1 Metamyelocytes % 1 Nucleated RBCs 1 /100WBC Hypochromasia 1+ slight Sodium 138 (136-145) mmol/L Potassium 3.9 (3.5-5.1) mmol/L Chloride 99 (98-107) mmol/L Carbon Dioxide 29 (21-32) mmol/L Anion Gap 13.9 H (7-13) mEq/L BUN 65 H D (7-18) mg/dL Creatinine 8.47 H* (0.70-1.30) mg/dL Est Cr Clr Drug Dosing 8.98 mL/min Estimated GFR (MDRD) 6 BUN/Creatinine Ratio 7.7 (No establ ref range) Glucose 267 H (70-99) mg/dL Calcium 8.6 (8.5-10.1) mg/dL Total Bilirubin 0.5 (0.2-1.0) mg/dL AST 37 (15-37) U/L ALT 108 H (16-63) U/L Alkaline Phosphatase 279 H (46-116) U/L Troponin I 0.128 H* (0.000-0.056) ng/mL Total Protein 7.7 (6.4-8.2) g/dL Albumin 2.1 L (3.4-5.0) g/dL Globulin 5.6 Albumin/Globulin Ratio 0.38 Departure - Departure Time of Disposition: 09:55 Disposition: DC/Tfer to Acute Hospital 02 Reason for Transfer *Q: Other Condition: Serious Clinical Impression: Elevated troponin I level Hypotension Qualifiers: Hypotension type: unspecified hypotension type Qualified Code(s): I95.9 - Hypotension, unspecified Forms: Interfacility Transfer EMTALA Care Plan Goals: Discussed the patient's history, examination, lab and EKG results with Dr. Borges. Dr. Borges accepted the patient for continued evaluation and further management as an inpatient at [facility] in [place]. The patient will be transported by [facility]. Sepsis Event Note (ED) - Evaluation Sepsis Screening Result: No Definite Risk - Focused Exam Vital Signs: Vital Signs Temp Pulse Resp BP Pulse Ox 09/25/20 09:13 36.2 C 58 L 18 103/58 L 95 - My Orders Last 24 Hours: My Active Orders 09/25/20 08:54 EKG Documentation Completion [RC] STAT 09/25/20 09:52 Sodium Chloride 0.9% [Normal Saline] 1,000 ml IV .BOLUS - Assessment/Plan Last 24 Hours: My Active Orders 09/25/20 08:54 EKG Documentation Completion [RC] STAT 09/25/20 09:52 Sodium Chloride 0.9% [Normal Saline] 1,000 ml IV .BOLUS
[2020-09-25 09:14] VITALS: BP 103/58; PULSE 58
[2020-09-25 09:33] LABS: ANION GAP 13.9 mEq/L (7-13)
--- NOTE | 2020-09-25 09:40 | CR ---
PROCEDURE INFORMATION: Exam: XR Chest Exam date and time: 09/25/2020 9:12 AM Age: 65 years old Clinical indication: Other: Low blood pressure TECHNIQUE: Imaging protocol: XR of the chest. Views: 1 view. COMPARISON: CR Chest 1V Frontal 08/16/2020 11:50 AM FINDINGS: Lungs: There are moderate new airspace opacities throughout the left lung with areas of patchy airspace opacity in the right mid and lower lung. This could reflect asymmetric edema and/or pneumonia. Pleural spaces: Unremarkable. No pleural effusion. No pneumothorax. Heart/Mediastinum: The cardiomediastinal silhouette is fairly stable in appearance. Bones/joints: Degenerative changes again involve the spine. IMPRESSION: Left more extensive than right-sided airspace opacities, could reflect asymmetric edema and/or pneumonia. Recommend follow-up to exclude pathology.
[2020-09-25] MEDS ORDERED: Sodium Chloride 0.9% 1,000 ML IV ONE (09:52)
== END 2020-09-25 10:30 ==
LOC: DL.ED 08:45
DX: I95.9 Hypotension, unspecified (principal); R79.89 Other specified abnormal findings of blood chemistry; I25.10 Atherosclerotic heart disease of native coronary artery without angina pectoris; I13.0 Hypertensive heart and chronic kidney disease with heart failure and stage 1 through stage 4 chronic kidney disease, or unspecified chronic kidney disease; I50.9 Heart failure, unspecified; N18.9 Chronic kidney disease, unspecified; I25.2 Old myocardial infarction; K21.9 Gastro-esophageal reflux disease without esophagitis; E78.00 Pure hypercholesterolemia, unspecified; E11.42 Type 2 diabetes mellitus with diabetic polyneuropathy; E11.22 Type 2 diabetes mellitus with diabetic chronic kidney disease; Z79.4 Long term (current) use of insulin; Z79.899 Other long term (current) drug therapy; Z79.82 Long term (current) use of aspirin
CPT/HCPCS: 36415; 71045; 80053; 84484; 85025; 93005; 93010; 99284; 99285-25; J7030

== ENCOUNTER 2020-10-16 17:30 | Emergency (ER) | payer MEDICARE, OTHER ==
[2020-10-16] MEDS ORDERED: Sodium Chloride 0.9% 10 ML Syringe FLUSH PRN (17:34)
[2020-10-16 17:46] VITALS: BP 115/72; PULSE 91
[2020-10-16 18:32] LABS: PTT,PARTIAL THROMBOPLSTIN TIME 34.3 SEC (22.0-34.0)
--- NOTE | 2020-10-16 18:32 | CR ---
PROCEDURE INFORMATION: Exam: XR Chest Exam date and time: 10/16/2020 5:52 PM Age: 65 years old Clinical indication: Pain; Other: Chest; Additional info: Chest pain TECHNIQUE: Imaging protocol: XR of the chest. Views: 1 view. COMPARISON: CR Chest 1V Frontal 09/25/2020 9:12 AM FINDINGS: Lungs: There are coarse reticular interstitial opacities in the lungs bilaterally. There is volume loss in the left lung with elevation of the left hemidiaphragm. Findings are suspicious for pulmonary fibrosis. No definite superimposed pneumonia is appreciated. The left lung is better aerated today compared with the prior study. Pleural spaces: There are no pleural effusions. There is no pneumothorax. Heart/Mediastinum: Allowing for technique, the heart size is probably upper limits of normal. The mediastinal and hilar contours are unchanged. The pulmonary vessels are within normal limits. Bones/joints: No acute osseous pathology is identified. IMPRESSION: Bilateral pulmonary fibrosis with volume loss in the left lung. No definite superimposed pneumonia is identified, although sensitivity is reduced due to the degree of underlying lung disease.
[2020-10-16 18:35] LABS: ANION GAP 12.9 mEq/L (7-13); CHLORIDE,CL 97 mmol/L (98-107); SODIUM,NA 137 mmol/L (136-145)
--- NOTE | 2020-10-16 18:55 | EDM.PDOC ---
<Jeane Dowd - Last Filed: 10/16/20 18:50> ED HPI GENERAL MEDICAL PROBLEM - General Chief Complaint: General Stated Complaint: AMBULANCE Time Seen by Provider: 10/16/20 18:50 Source of Information: Reports: Patient History Limitations: Reports: No Limitations - History of Present Illness INITIAL COMMENTS - FREE TEXT/NARRATIVE: Patient is a 65 year old male who presents to the ED with low potassium. He states that he went in to the clinic today for evaluation of his knee pain and after review of his laboratory results, they recommended he be seen in the ED due to his low potassium. He reports diarrhea for the past two days, up to 4x per day. He denies chest pain, shortness of breath, nausea, vomiting, fevers, or chills. He uses peritoneal dialysis for CKD. - Related Data Allergies Allergy/AdvReac Type Severity Reaction Status Date / Time No Known Allergies Allergy Verified 10/16/20 18:18 Home Meds: Home Meds Hydrocodone/Acetaminophen [Hydrocodone-Acetaminophen 5-325] 1 tab PO TID PRN 12/20/13 [History] Insulin Detemir [Levemir Flexpen] 25 unit SQ BID 01/19/14 [History] Ezetimibe [Zetia] 10 mg PO DAILY 05/15/16 [History] Gabapentin [Neurontin] 300 mg PO BEDTIME 05/15/16 [History] LORazepam 1 mg PO QID PRN 05/15/16 [History] Loratadine 10 mg PO DAILY 05/15/16 [History] Terazosin HCl [Terazosin] 5 mg PO BEDTIME 05/15/16 [History] Docusate Sodium 100 mg PO BID PRN #60 capsule 12/29/16 [Rx] Isosorbide Mononitrate [Imdur] 120 mg PO BID 05/27/17 [History] Calcium Citrate/Vitamin D3 [Calcium Citrate + D] 2 each PO BID 06/12/17 [History] Cyanocobalamin (Vitamin B-12) [Vitamin B-12] 100 mcg PO DAILY 06/12/17 [History] Furosemide 60 mg PO DAILY 06/12/17 [History] atorvaSTATin [Lipitor] 20 mg PO BEDTIME 06/12/17 [History] calcitrioL [Rocaltrol] 0.25 mcg PO DAILY 02/01/18 [History] carvediloL [Carvedilol] 50 mg PO BIDMEALS 06/12/17 [History] hydrALAZINE [Apresoline] 150 mg PO Q8H 06/12/17 [History] metOLazone [Zaroxolyn] 2.5 mg PO .48H 06/12/17 [History] Aspirin [Halfprin] 81 mg PO DAILY 06/22/18 [History] Ranitidine [Zantac] 150 mg PO BID 06/22/18 [History] Sevelamer Carbonate 800 mg PO BIDMEALS 06/22/18 [History] dilTIAZem HCL [Taztia Xt] 120 mg PO DAILY 06/22/18 [History] Insulin Lispro [HumaLOG] 0 unit SUBCUT ACBED vial 06/25/18 [Rx] Mupirocin Oint [Bactroban Oint] 1 applic TOP DAILY 09/15/18 [History] Past Medical History HEENT History: Reports: Impaired Vision Other HEENT History: WEARS CORRECTIVE LENSES; UPPER AND LOWER DENTURE PLATE Cardiovascular History: Reports: CAD, Heart Failure, High Cholesterol, Hypertension, [place], Stents Respiratory History: Reports: Bronchitis, Recurrent, Pneumonia, Recurrent, SOB Other Respiratory History: recent bronchitis Gastrointestinal History: Reports: Chronic Constipation, Colon Polyp, Gastritis, GERD Other Gastrointestinal History: gall stones Genitourinary History: Reports: BPH, Chronic Renal Insuffiency, Dialysis, Peritoneal Musculoskeletal History: Reports: Fracture Other Musculoskeletal History: missing tip of pinkie on left hand Neurological History: Reports: Headaches, Chronic, Neuropathy, Diabetic, Neuropathy, Peripheral Psychiatric History: Reports: Anxiety Endocrine/Metabolic History: Reports: Diabetes, Type II Hematologic History: Reports: B12 Deficiency Immunologic History: Reports: None Oncologic (Cancer) History: Reports: None Dermatologic History: Reports: Other (See Below) Other Dermatologic History: dry skin, peritoneal dialysis site - Infectious Disease History Infectious Disease History: Reports: Chicken Pox, Novel Coronavirus - Past Surgical History Head Surgeries/Procedures: Reports: None HEENT Surgical History: Reports: None Cardiovascular Surgical History: Reports: Coronary Artery Stent Other Cardiovascular Surgeries/Procedures: 1 stent Respiratory Surgical History: Reports: None GI Surgical History: Reports: Cholecystectomy Male Surgical History: Reports: None Endocrine Surgical History: Reports: None Neurological Surgical History: Reports: None Musculoskeletal Surgical History: Reports: None Other Musculoskeletal Surgeries/Procedures:: LEFT ANKLE SURGERY Oncologic Surgical History: Reports: None Dermatological Surgical History: Reports: None Social & Family History - Family History Family Medical History: No Pertinent Family History : Reports: Renal Disease/Insufficiency Neurological: Reports: TIA Endocrine/Metabolic: Reports: Diabetes, type II - Tobacco Use Tobacco Use Status *Q: Never Tobacco User - Caffeine Use Caffeine Use: Reports: Coffee Other Caffeine Use: states drinks decaffinated coffee Caffeine Use Comment: decaf coffee - Recreational Drug Use Recreational Drug Use: No - Living Situation & Occupation Living situation: Reports: with Family, Occupation: Employed ED ROS GENERAL - Review of Systems Review Of Systems: See Below Constitutional: Reports: No Symptoms Respiratory: Reports: No Symptoms Cardiovascular: Reports: No Symptoms GI/Abdominal: Reports: Diarrhea. Denies: Black Stool, Bloody Stool, Distension, Hematemesis, Melena, Nausea, Vomiting Skin: Reports: No Symptoms Neurological: Reports: No Symptoms ED EXAM, GENERAL - Physical Exam Exam: See Below Exam Limited By: No Limitations General Appearance: Alert, WD/WN, No Apparent Distress Throat/Mouth: Normal Inspection, Normal Lips, Normal Voice, No Airway Compromise Head: Atraumatic, Normocephalic Neck: Normal Inspection, Supple, Non-Tender Respiratory/Chest: No Respiratory Distress, Chest Non-Tender, Wheezing, Prolonged Expiration Cardiovascular: Normal Peripheral Pulses, Regular Rate, Rhythm, No Edema GI/Abdominal: Soft, Non-Tender, No Organomegaly, No Distention, Other (Peritoneal dialysis catheter in place) Extremities: Normal Inspection, Non-Tender, Normal Capillary Refill Neurological: Alert, Oriented, Normal Cognition Psychiatric: Normal Affect, Normal Mood Skin Exam: Warm, Dry, Intact, Normal Color #1 Interpretation EKG Date: 10/16/20 Rhythm: NSR Rate (Beats/Min): 94 NH/PQ Interval: 148 EKG Interpretation Comments: Chronic LBBB Departure - Departure Disposition: DC/Tfer to [facility] 02 Clinical Impression: CKD (chronic kidney disease) requiring chronic dialysis, ESRD on peritoneal dialysis, Elevated troponin I level, Hypokalemia Right ankle pain Qualifiers: Chronicity: acute Qualified Code(s): M25.571 - Pain in right ankle and joints of right foot - Discharge Information Referrals: PCP,None [Primary Care Provider] - Forms: ED Department Discharge, Interfacility Transfer DICK Sepsis Event Note (ED) - Evaluation Sepsis Screening Result: No Definite Risk <Leonard Lundberg - Last Filed: 10/16/20 19:10> Course - Re-Assessments/Exams Free Text/Narrative Re-Assessment/Exam: 10/16/20 19:10 I personally performed or re-performed the physical examination and medical decision making. I have verified all student documentation or findings, including history, physical exam and/or medical decision making. Free Text/Narrative Re-Assessment/Exam: 10/16/20 19:10 Care of pt transferred to Chikis Lantigua [employer] COORDINATOR at shift change. <Chikis Lantigua - Last Filed: 10/17/20 06:08> Course - Vital Signs Last Recorded V/S: Last Vital Signs Temp 98 F 10/16/20 17:44 Pulse 91 10/16/20 17:44 Resp 16 10/16/20 17:44 BP 115/72 10/16/20 17:44 Pulse Ox 100 10/16/20 17:44 - Orders/Labs/Meds Orders: Active Orders 24 hr Category Date Time Status CULTURE BLOOD [BC] Stat Lab 10/16/20 17:43 Received CULTURE BLOOD [BC] Stat Lab 10/16/20 17:43 Received Blood Culture x2 Reflex Set [OM.PC] Stat Oth 10/16/20 17:33 Ordered Peripheral IV Insertion Adult [OM.PC] Stat Oth 10/16/20 17:34 Ordered Labs: Laboratory Tests 10/16/20 10/16/20 10/16/20 Range/Units 17:43 17:43 17:43 WBC 11.5 H (5.0-10.0) 10^3/uL RBC 4.06 L (4.6-6.2) 10^6/uL Hgb 10.7 L (14.0-18.0) g/dL Hct 33.4 L (40.0-54.0) % MCV 82.3 (80-100) fL MCH 26.4 L (27.0-34.0) pg MCHC 32.0 L (33.0-35.0) g/dL Plt Count 246 D (150-450) 10^3/uL Neut % (Auto) 76.8 H (42.2-75.2) % Lymph % (Auto) 15.8 L (20.5-50.1) % [place] % (Auto) 6.2 (2-8) % Eos % (Auto) 1.0 (1.0-3.0) % Baso % (Auto) 0.2 (0.0-1.0) % Add Manual Diff Yes Neutrophils % (Manual) 65 (42-75) % Band Neutrophils % 8 % Lymphocytes % (Manual) 22 (20-50) % Monocytes % (Manual) 3 (2-8) % Eosinophils % (Manual) 2 (1-3) % Hypochromasia 1+ slight PT 12.5 H (9.0-12.0) SEC INR 1.3 H (0.9-1.2) APTT 34.3 H (22.0-34.0) SEC Sodium 137 (136-145) mmol/L Potassium 2.9 L (3.5-5.1) mmol/L Chloride 97 L (98-107) mmol/L Carbon Dioxide 30 (21-32) mmol/L Anion Gap 12.9 (7-13) mEq/L BUN 42 H (7-18) mg/dL Creatinine 7.26 H* D (0.70-1.30) mg/dL Est Cr Clr Drug Dosing 10.14 mL/min Estimated GFR (MDRD) 8 BUN/Creatinine Ratio 5.8 (No establ ref range) Glucose 145 H (70-99) mg/dL Lactic Acid (0.4-2.0) mmol/L Calcium 8.9 (8.5-10.1) mg/dL Phosphorus 3.9 (2.6-4.7) mg/dL Magnesium 1.7 L (1.8-2.4) mg/dL Total Bilirubin 0.9 (0.2-1.0) mg/dL AST 39 H (15-37) U/L ALT 47 (16-63) U/L Alkaline Phosphatase 312 H (46-116) U/L Troponin I High Sens 159 H* (<=76) pg/mL B-Natriuretic Peptide 196 H (0-100) pg/ml Total Protein 7.6 (6.4-8.2) g/dL Albumin 1.9 L (3.4-5.0) g/dL Globulin 5.7 Albumin/Globulin Ratio 0.33 Lipase 158 (73-393) U/L Ethyl Alcohol < 3 (0) mg/dL 10/16/20 Range/Units 17:43 WBC (5.0-10.0) 10^3/uL RBC (4.6-6.2) 10^6/uL Hgb (14.0-18.0) g/dL Hct (40.0-54.0) % MCV (80-100) fL MCH (27.0-34.0) pg MCHC (33.0-35.0) g/dL Plt Count (150-450) 10^3/uL Neut % (Auto) (42.2-75.2) % Lymph % (Auto) (20.5-50.1) % [place] % (Auto) (2-8) % Eos % (Auto) (1.0-3.0) % Baso % (Auto) (0.0-1.0) % Add Manual Diff Neutrophils % (Manual) (42-75) % Band Neutrophils % % Lymphocytes % (Manual) (20-50) % Monocytes % (Manual) (2-8) % Eosinophils % (Manual) (1-3) % Hypochromasia PT (9.0-12.0) SEC INR (0.9-1.2) APTT (22.0-34.0) SEC Sodium (136-145) mmol/L Potassium (3.5-5.1) mmol/L Chloride (98-107) mmol/L Carbon Dioxide (21-32) mmol/L Anion Gap (7-13) mEq/L BUN (7-18) mg/dL Creatinine (0.70-1.30) mg/dL Est Cr Clr Drug Dosing mL/min Estimated GFR (MDRD) BUN/Creatinine Ratio (No establ ref range) Glucose (70-99) mg/dL Lactic Acid 1.7 (0.4-2.0) mmol/L Calcium (8.5-10.1) mg/dL Phosphorus (2.6-4.7) mg/dL Magnesium (1.8-2.4) mg/dL Total Bilirubin (0.2-1.0) mg/dL AST (15-37) U/L ALT (16-63) U/L Alkaline Phosphatase (46-116) U/L Troponin I High Sens (<=76) pg/mL B-Natriuretic Peptide (0-100) pg/ml Total Protein (6.4-8.2) g/dL Albumin (3.4-5.0) g/dL Globulin Albumin/Globulin Ratio Lipase (73-393) U/L Ethyl Alcohol (0) mg/dL Meds: Medications Discontinued Medications Generic Name Dose Route Start Last Admin Trade Name Rigobertoq PRN Reason Stop Dose Admin Aspirin 324 mg 10/16/20 19:36 10/16/20 19:52 Aspirin 81 Mg Tab.Chew PO 10/16/20 19:37 324 mg ONETIME ONE Administration Sodium Chloride 500 mls @ 500 mls/hr 10/16/20 19:24 10/16/20 19:53 Normal Saline IV 10/16/20 20:23 500 mls/hr .BOLUS ONE Administration Potassium Chloride 20 meq/ 100 mls @ 50 mls/hr 10/16/20 19:24 10/16/20 19:52 Premix IV 10/16/20 21:23 50 mls/hr ONETIME ONE Administration Heparin Sodium/Sodium Chloride 25,000 units in 500 mls @ 21.664 mls/hr 10/16/20 19:45 10/16/20 19:52 Heparin 25,000 Units In 1/2 Ns 500 Ml IV 11.08 units/kg/hr TITRATE ELVI 20 mls/hr Administration Protocol 12 UNITS/KG/HR Sodium Chloride 10 ml 10/16/20 17:34 10/16/20 18:36 Sodium Chloride 0.9% 10 Ml Syringe FLUSH 10 ml ASDIRECTED PRN Administration Keep Vein Open - Radiology Interpretation Free Text/Narrative:: [facility] Final Radiology Report Call: [phone] assistance Online chat: [email or web address] Name: ADAMA QUINTANILLA Age: 65Years M Date: 10/16/2020 SSN: -- : [id number] Study: CR CHEST 1V FRONTAL Requesting Physician: LEONARD LUNDBERG Images: 1 Addl Studies: Provided Clinical History: chest pain Contrast: Contrast Medium: Contrast Amount: Contrast Method: Page 1 of 2 PROCEDURE INFORMATION: Exam: XR Chest Exam date and time: 10/16/2020 5:52 PM Age: 65 years old Clinical indication: Pain; Other: Chest; Additional info: Chest pain TECHNIQUE: Imaging protocol: XR of the chest. Views: 1 view. COMPARISON: CR Chest 1V Frontal 09/25/2020 9:12 AM FINDINGS: Lungs: There are coarse reticular interstitial opacities in the lungs bilaterally. There is volume loss in the left lung with elevation of the left hemidiaphragm. Findings are suspicious for pulmonary fibrosis. No definite superimposed pneumonia is appreciated. The left lung is better aerated today compared with the prior study. Pleural spaces: There are no pleural effusions. There is no pneumothorax. Heart/Mediastinum: Allowing for technique, the heart size is probably upper limits of normal. The mediastinal and hilar contours are unchanged. The pulmonary vessels are within normal limits. Bones/joints: No acute osseous pathology is identified. IMPRESSION: Bilateral pulmonary fibrosis with volume loss in the left lung. No definite superimposed pneumonia is identified, although sensitivity is reduced due to the degree of underlying lung disease. Thank you for allowing us to participate in the care of your patient. Dictated and Authenticated by: Yesenia Vinson MD 10/16/2020 6:32 PM Central Time ([place] & [place]) - Re-Assessments/Exams Free Text/Narrative Re-Assessment/Exam: 10/16/20 Care of patient assumed from Dr. Lundberg at 1900. Findings of examination, lab work, and imaging reviewed with patient and . Discussed need for transfer given hypokalemia, troponin elevation, and peritoneal dialysis. Case discussed with Dr. García at [facility] in [place] who kindly agreed to accept patient for transfer. Dr. García requesting NSTEMI heparin and ASA protocol given troponin elevation. Departure - Departure Time of Disposition: 19:37
[2020-10-16] MEDS ORDERED: Potassium Chloride 20 MEQ in Premix Bag 1 BAG IV ONE (19:24)
[2020-10-16] MEDS ORDERED: Sodium Chloride 0.9% 500 ML IV ONE (19:24)
[2020-10-16] MEDS ORDERED: Aspirin 81 MG Tab.Chew PO ONE (19:36)
[2020-10-16] MEDS ORDERED: Heparin Sodium/0.45% NaCl 25,000 UNITS/500 ML BAG IV SCH (19:45)
== END 2020-10-16 20:15 ==
LOC: DL.ED 17:30
DX: M25.571 Pain in right ankle and joints of right foot (principal); R79.89 Other specified abnormal findings of blood chemistry; E87.6 Hypokalemia; I25.10 Atherosclerotic heart disease of native coronary artery without angina pectoris; E78.00 Pure hypercholesterolemia, unspecified; I13.2 Hypertensive heart and chronic kidney disease with heart failure and with stage 5 chronic kidney disease, or end stage renal disease; I50.9 Heart failure, unspecified; I25.2 Old myocardial infarction; K21.9 Gastro-esophageal reflux disease without esophagitis; E11.22 Type 2 diabetes mellitus with diabetic chronic kidney disease; E11.42 Type 2 diabetes mellitus with diabetic polyneuropathy; N18.6 End stage renal disease; Z99.2 Dependence on renal dialysis; Z79.82 Long term (current) use of aspirin; Z79.899 Other long term (current) drug therapy; Z95.5 Presence of coronary angioplasty implant and graft; Z79.4 Long term (current) use of insulin
CPT/HCPCS: 36415; 71045; 80053; 80307; 83605; 83690; 83735; 83880; 84100; 84484; 85025; 85610; 85730; 87040; 93005; 93010; 96365; 96368; 99284; 99285-25; A9270-GY; J1644; J3480; J7030

== ENCOUNTER 2020-10-29 07:45 | Emergency (ER) | payer MEDICARE, OTHER ==
[2020-10-29] MEDS ORDERED: Morphine 4 MG/ML Syringe IVPUSH ONE (07:59)
[2020-10-29 08:35] LABS: ANION GAP 10.2 mEq/L (7-13)
[2020-10-29 10:39] VITALS: BP 118/45; PULSE 100
--- NOTE | 2020-10-29 11:03 | CR ---
PROCEDURE INFORMATION: Exam: XR Right Humerus Exam date and time: 10/29/2020 9:00 AM Age: 65 years old Clinical indication: Shoulder; Right; Patient HX: Pain proximal humerus; Additional info: Pain in upper arm just below shoulder TECHNIQUE: Imaging protocol: XR Right humerus. Views: 2 or more views. COMPARISON: CR Chest 1V Frontal 10/16/2020 5:52 PM FINDINGS: Bones/joints: No fracture in the visualized portion of the right humerus. The right glenohumeral and acromioclavicular joints are grossly within normal limits. Soft tissues: No acute soft tissue abnormality. IMPRESSION: No acute abnormality.
--- NOTE | 2020-10-29 11:42 | EDM.PDOC ---
ED HPI GENERAL MEDICAL PROBLEM - General Chief Complaint: Upper Extremity Injury/Pain Time Seen by Provider: 10/29/20 08:00 - History of Present Illness INITIAL COMMENTS - FREE TEXT/NARRATIVE: Maxi is an 65-year-old man who presents via ambulance for pain in his upper right arm. He has had this issue previously. 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 He has had a previous MRI as well as full work-up for this. Because of his end-stage renal disease, he is not a candidate for surgery at this time. Maxi does his own peritoneal dialysis at home, states that has been going well. He started having pain in his upper arm yesterday, and it got worse this morning. He does not member any particular incident or event which elicited this. Also of concern, clearly states that he has been feeling a little bit poorly this morning. When the ambulance crew arrived to transport him, they reported a temperature of 104.7 F. Upon recheck here upon arrival, he was 102 F. He reports no other symptoms, no cough or cold symptoms, no shortness of breath. He has had no rashing or bruising anywhere. He reports no diarrhea or constipation, no dysuria. Right Upper Arm Pain Score (Numeric/FACES): 8 - Related Data Allergies Allergy/AdvReac Type Severity Reaction Status Date / Time No Known Allergies Allergy Verified 10/29/20 08:20 Home Meds: Home Meds Hydrocodone/Acetaminophen [Hydrocodone-Acetaminophen 5-325] 1 tab PO TID PRN 12/20/13 [History] Insulin Detemir [Levemir Flexpen] 25 unit SQ BID 01/19/14 [History] Ezetimibe [Zetia] 10 mg PO DAILY 05/15/16 [History] Gabapentin [Neurontin] 300 mg PO BEDTIME 05/15/16 [History] LORazepam 1 mg PO QID PRN 05/15/16 [History] Loratadine 10 mg PO DAILY 05/15/16 [History] Terazosin HCl [Terazosin] 5 mg PO BEDTIME 05/15/16 [History] Docusate Sodium 100 mg PO BID PRN #60 capsule 12/29/16 [Rx] Isosorbide Mononitrate [Imdur] 120 mg PO BID 05/27/17 [History] Calcium Citrate/Vitamin D3 [Calcium Citrate + D] 2 each PO BID 06/12/17 [History] Cyanocobalamin (Vitamin B-12) [Vitamin B-12] 100 mcg PO DAILY 06/12/17 [History] Furosemide 60 mg PO DAILY 06/12/17 [History] atorvaSTATin [Lipitor] 20 mg PO BEDTIME 06/12/17 [History] calcitrioL [Rocaltrol] 0.25 mcg PO DAILY 06/12/17 [History] carvediloL [Carvedilol] 50 mg PO BIDMEALS 06/12/17 [History] hydrALAZINE [Apresoline] 150 mg PO Q8H 06/12/17 [History] metOLazone [Zaroxolyn] 2.5 mg PO .48H 06/12/17 [History] Aspirin [Halfprin] 81 mg PO DAILY 06/22/18 [History] Ranitidine [Zantac] 150 mg PO BID 06/22/18 [History] Sevelamer Carbonate 800 mg PO BIDMEALS 06/22/18 [History] dilTIAZem HCL [Taztia Xt] 120 mg PO DAILY 06/22/18 [History] Insulin Lispro [HumaLOG] 0 unit SUBCUT ACBED vial 06/25/18 [Rx] Mupirocin Oint [Bactroban Oint] 1 applic TOP DAILY 09/15/18 [History] Apixaban [Eliquis] 5 mg PO BID 10/29/20 [History] Cefdinir [Omnicef] 300 mg PO Q48H 10 Days #5 cap 10/29/20 [Rx] Past Medical History HEENT History: Reports: Impaired Vision Other HEENT History: WEARS CORRECTIVE LENSES; UPPER AND LOWER DENTURE PLATE Cardiovascular History: Reports: CAD, Heart Failure, High Cholesterol, Hypertension, [place], Stents Respiratory History: Reports: Bronchitis, Recurrent, Pneumonia, Recurrent, SOB Other Respiratory History: recent bronchitis Gastrointestinal History: Reports: Chronic Constipation, Colon Polyp, Gastritis, GERD Other Gastrointestinal History: gall stones Genitourinary History: Reports: BPH, Chronic Renal Insuffiency, Dialysis, Peritoneal Musculoskeletal History: Reports: Fracture Other Musculoskeletal History: missing tip of pinkie on left hand Neurological History: Reports: Headaches, Chronic, Neuropathy, Diabetic, Neuropathy, Peripheral Psychiatric History: Reports: Anxiety Endocrine/Metabolic History: Reports: Diabetes, Type II Hematologic History: Reports: B12 Deficiency Immunologic History: Reports: None Oncologic (Cancer) History: Reports: None Dermatologic History: Reports: Other (See Below) Other Dermatologic History: dry skin, peritoneal dialysis site - Infectious Disease History Infectious Disease History: Reports: Chicken Pox, Novel Coronavirus - Past Surgical History Head Surgeries/Procedures: Reports: None HEENT Surgical History: Reports: None Cardiovascular Surgical History: Reports: Coronary Artery Stent Other Cardiovascular Surgeries/Procedures: 1 stent Respiratory Surgical History: Reports: None GI Surgical History: Reports: Cholecystectomy Male Surgical History: Reports: None Endocrine Surgical History: Reports: None Neurological Surgical History: Reports: None Musculoskeletal Surgical History: Reports: None Other Musculoskeletal Surgeries/Procedures:: LEFT ANKLE SURGERY Oncologic Surgical History: Reports: None Dermatological Surgical History: Reports: None Social & Family History - Family History Family Medical History: No Pertinent Family History : Reports: Renal Disease/Insufficiency Neurological: Reports: TIA Endocrine/Metabolic: Reports: Diabetes, type II - Tobacco Use Tobacco Use Status *Q: Never Tobacco User Second Hand Smoke Exposure: No - Caffeine Use Caffeine Use: Reports: None Other Caffeine Use: states drinks decaffinated coffee Caffeine Use Comment: decaf coffee - Recreational Drug Use Recreational Drug Use: No - Living Situation & Occupation Living situation: Reports: with Family, Occupation: Employed Review of Systems - Review of Systems Review Of Systems: Comprehensive ROS is negative, except as noted in HPI. ED EXAM, GENERAL - Physical Exam Exam: See Below Free Text/Narrative:: General: Maxi is a 65-year-old man in no acute distress Ears: Canals are patent, tympanic membranes appear normal Oropharynx is clear, mucous membranes are moist Heart: Regular rate and rhythm, 1 out of 6 to 2 out of 6 systolic murmur best heard over the left sternal border Lungs: Clear to auscultation throughout Right upper arm does not show any bruising or erythema. There is no sign of any wound. Peripheral IV was started, he was given 4 mg of IV morphine, which was repeated again 1 hour later. After this was administered he was feeling much better. Since lab work-up was negative for any sign of significant infection, he was deemed suitable for discharge home Course - Vital Signs Last Recorded V/S: Last Vital Signs Temp 100.1 F 10/29/20 10:38 Pulse 100 10/29/20 10:38 Resp 20 10/29/20 10:38 BP 118/45 L 10/29/20 10:38 Pulse Ox 100 10/29/20 10:38 - Orders/Labs/Meds Labs: Laboratory Tests 10/29/20 10/29/20 10/29/20 Range/Units 08:09 08:09 08:09 WBC 9.5 (5.0-10.0) 10^3/uL RBC 3.48 L (4.6-6.2) 10^6/uL Hgb 9.0 L D (14.0-18.0) g/dL Hct 29.0 L (40.0-54.0) % MCV 83.3 (80-100) fL MCH 25.9 L (27.0-34.0) pg MCHC 31.0 L (33.0-35.0) g/dL Plt Count 272 (150-450) 10^3/uL Neut % (Auto) 77.9 H (42.2-75.2) % Lymph % (Auto) 14.8 L (20.5-50.1) % [place] % (Auto) 6.3 (2-8) % Eos % (Auto) 0.9 L (1.0-3.0) % Baso % (Auto) 0.1 (0.0-1.0) % Sodium 131 L (136-145) mmol/L Potassium 4.2 (3.5-5.1) mmol/L Chloride 95 L (98-107) mmol/L Carbon Dioxide 30 (21-32) mmol/L Anion Gap 10.2 (7-13) mEq/L BUN 30 H (7-18) mg/dL Creatinine 5.02 H* D (0.70-1.30) mg/dL Est Cr Clr Drug Dosing 15.15 mL/min Estimated GFR (MDRD) 12 BUN/Creatinine Ratio 6.0 (No establ ref range) Glucose 307 H (70-99) mg/dL Lactic Acid 1.6 (0.4-2.0) mmol/L Calcium 8.2 L (8.5-10.1) mg/dL Total Bilirubin 1.2 H (0.2-1.0) mg/dL AST 21 (15-37) U/L ALT 27 (16-63) U/L Alkaline Phosphatase 265 H (46-116) U/L Total Protein 6.7 (6.4-8.2) g/dL Albumin 1.6 L (3.4-5.0) g/dL Globulin 5.1 Albumin/Globulin Ratio 0.31 Meds: Medications Discontinued Medications Generic Name Dose Route Start Last Admin Trade Name Ellen PRN Reason Stop Dose Admin Morphine Sulfate 4 mg 10/29/20 07:59 10/29/20 08:25 Morphine 4 Mg/Ml Syringe IVPUSH 10/29/20 08:00 4 mg ONETIME ONE Administration Departure - Departure Time of Disposition: 11:40 Disposition: Home, Self-Care 01 Clinical Impression: End stage renal disease on dialysis, Febrile illness, acute - Discharge Information *PRESCRIPTION DRUG MONITORING PROGRAM REVIEWED*: Not Applicable *COPY OF PRESCRIPTION DRUG MONITORING REPORT IN PATIENT MELISSA: Not Applicable Prescriptions: Cefdinir [Omnicef] 300 mg PO Q48H 10 Days #5 cap Instructions: Fever, Adult, [id number] Forms: ED Department Discharge Sepsis Event Note (ED) - Evaluation Sepsis Screening Result: Possible Sepsis Risk - Problem List & Annotations (1) Febrile illness, acute SNOMED Code(s): 911851703 Code(s): R50.9 - FEVER, UNSPECIFIED Status: Acute (2) ESRD on peritoneal dialysis SNOMED Code(s): 265112604 Code(s): N18.6 - END STAGE RENAL DISEASE; Z99.2 - DEPENDENCE ON RENAL DIALYSIS Status: Acute - Problem List Review Problem List Initiated/Reviewed/Updated: Yes - Assessment/Plan Assessment:: 1. 65-year-old man with acute exacerbation of chronic right arm pain 2. End-stage renal disease on peritoneal dialysis at home 3. Febrile illness Plan: 1. With Maxi's other comorbidities, I do think it is appropriate to put him on an empiric dose of Omnicef, 300 mg every 48 hours. He will report immediately back to the ER or to his primary care physician if the fevers prieto nue.
== END 2020-10-29 12:35 | disposition home or self-care (01) ==
LOC: DL.ED 07:45
DX: I13.0 Hypertensive heart and chronic kidney disease with heart failure and stage 1 through stage 4 chronic kidney disease, or unspecified chronic kidney disease (principal); E11.22 Type 2 diabetes mellitus with diabetic chronic kidney disease; N18.6 End stage renal disease; I50.9 Heart failure, unspecified; I25.10 Atherosclerotic heart disease of native coronary artery without angina pectoris; E78.00 Pure hypercholesterolemia, unspecified; I25.2 Old myocardial infarction; Z86.16 Personal history of COVID-19; Z95.5 Presence of coronary angioplasty implant and graft; Z79.4 Long term (current) use of insulin; Z79.899 Other long term (current) drug therapy
CPT/HCPCS: 36415; 73060-RT; 80053; 83605; 85025; 96374; 99283; 99284-25; J2270

== ENCOUNTER 2021-01-16 16:57 | Emergency (ER) | payer MEDICARE ==
[2021-01-16] MEDS ORDERED: Sodium Chloride 0.9% 10 ML Syringe FLUSH PRN (17:40)
[2021-01-16] MEDS ORDERED: Potassium Chloride 10 MEQ in Premix Bag 1 BAG IV ONE (17:41)
[2021-01-16] MEDS ORDERED: Potassium Chloride 10 MEQ Tab.ER PO ONE (17:41)
[2021-01-16] MEDS ORDERED: Lidocaine 1% 30 ML SDV INJECT ONE (17:42)
--- NOTE | 2021-01-16 17:42 | EDM.PDOC ---
<Hood Wagnerias Roman - Last Filed: 01/16/21 18:23> ED HPI GENERAL MEDICAL PROBLEM - General Chief Complaint: General Stated Complaint: 'K' IS LOW Time Seen by Provider: 01/16/21 17:37 Source of Information: Reports: Patient History Limitations: Reports: No Limitations - History of Present Illness INITIAL COMMENTS - FREE TEXT/NARRATIVE: 65 y/o M c/o weakness since last night. Pt was discharged from [facility] after treatment for an infected R shoulder. He states he had surgery where they scraped his shoulder area to get rid of an infection there. As a result of the infection he has been receiving iv antibiotics. Before leaving [facility] he had labs drawn today at noon. [facility] called pt around 3pm and told him to come to the ER to receive IV potassium. [facility] records indicate pts potassium was 2.8 at noon today. Pt deneis any other complaint. Duration: Day(s): Generalized Pain Score (Numeric/FACES): 5 - Related Data Allergies Allergy/AdvReac Type Severity Reaction Status Date / Time No Known Allergies Allergy Verified 01/13/21 13:06 Home Meds: Home Meds Acetaminophen 650 mg PO Q6HR PRN 11/18/20 [History] Apixaban [Eliquis] 5 mg PO BID 11/18/20 [History] Calcium Acetate [PhosLo] 667 mg PO QID 11/18/20 [History] Calcium Citrate/Vitamin D3 [Calcium Citrate - Vit D Caplet] 2 tab PO BID 11/18/20 [History] ClonazePAM [KlonoPIN] 1 mg PO BEDTIME PRN 11/18/20 [History] Darbepoetin Sukh [Aranesp] 150 mcg SUBCUT .MONTHLY 11/18/20 [History] Docusate Sodium 100 mg PO BID PRN 11/18/20 [History] Ezetimibe 10 mg PO DAILY 11/18/20 [History] Furosemide 60 mg PO DAILY 11/18/20 [History] Hydrocodone/Acetaminophen [Hydrocodone-Acetamin 5-325 mg] 1 tab PO TID PRN 11/18/20 [History] Insulin Detemir [Levemir Flextouch] 10 unit SQ BID 11/18/20 [History] Loratadine 10 mg PO DAILY 11/18/20 [History] Metoclopramide HCl [Reglan] 10 mg PO BEDTIME PRN 11/18/20 [History] Midodrine 5 mg PO BID 11/18/20 [History] Mupirocin Oint [Bactroban Oint] 22 gm TP DAILY 11/18/20 [History] Omeprazole 20 mg PO ACBREAKFAST 11/18/20 [History] Potassium Chloride 10 meq PO BID 11/18/20 [History] Sodium Bicarbonate 650 mg PO BID 11/18/20 [History] atorvaSTATin [Lipitor] 20 mg PO BEDTIME 11/18/20 [History] sevelamer HCL [Sevelamer HCl] 1,600 mg PO TIDMEALS 11/18/20 [History] Past Medical History HEENT History: Reports: Impaired Vision, Other (See Below) Other HEENT History: WEARS CORRECTIVE LENSES; UPPER AND LOWER DENTURE PLATE Cardiovascular History: Reports: Blood Clots/VTE/DVT, CAD, Heart Failure, High Cholesterol, Hypertension, [place], Stents Respiratory History: Reports: Bronchitis, Recurrent, Pneumonia, Recurrent, SOB, Other (See Below) Other Respiratory History: -recent bronchitis. Hx COVID 2020 Gastrointestinal History: Reports: Chronic Constipation, Colon Polyp, Gastritis, GERD Other Gastrointestinal History: gall stones Genitourinary History: Reports: BPH, Chronic Renal Insuffiency, Dialysis, Peritoneal Musculoskeletal History: Reports: Fracture Other Musculoskeletal History: missing tip of pinkie on left hand Neurological History: Reports: Headaches, Chronic, Neuropathy, Diabetic, Neuropathy, Peripheral Psychiatric History: Reports: Anxiety Endocrine/Metabolic History: Reports: Diabetes, Type II Hematologic History: Reports: B12 Deficiency Immunologic History: Reports: None Oncologic (Cancer) History: Reports: None Dermatologic History: Reports: Other (See Below) Other Dermatologic History: dry skin, peritoneal dialysis site - Infectious Disease History Infectious Disease History: Reports: Chicken Pox, Novel Coronavirus, Other (See Below) Other Infectious Disease History: COVID - Past Surgical History Head Surgeries/Procedures: Reports: None HEENT Surgical History: Reports: None Cardiovascular Surgical History: Reports: Coronary Artery Stent Other Cardiovascular Surgeries/Procedures: 1 stent Respiratory Surgical History: Reports: None GI Surgical History: Reports: Cholecystectomy Male Surgical History: Reports: None Endocrine Surgical History: Reports: None Neurological Surgical History: Reports: None Musculoskeletal Surgical History: Reports: None Other Musculoskeletal Surgeries/Procedures:: LEFT ANKLE SURGERY Oncologic Surgical History: Reports: None Dermatological Surgical History: Reports: None Social & Family History - Family History Family Medical History: No Pertinent Family History : Reports: Renal Disease/Insufficiency Neurological: Reports: TIA Endocrine/Metabolic: Reports: Diabetes, type II - Caffeine Use Caffeine Use: Reports: Coffee Other Caffeine Use: states drinks decaffinated coffee Caffeine Use Comment: decaf coffee - Living Situation & Occupation Living situation: Reports: with Family, Occupation: Employed ED ROS GENERAL - Review of Systems Review Of Systems: Comprehensive ROS is negative, except as noted in HPI. ED EXAM, GENERAL - Physical Exam Exam: See Below Exam Limited By: No Limitations General Appearance: Alert, No Apparent Distress Throat/Mouth: No Airway Compromise Head: Atraumatic, Normocephalic Neck: Supple, Non-Tender Respiratory/Chest: No Respiratory Distress, Lungs Clear, Normal Breath Sounds Cardiovascular: Normal Peripheral Pulses, Regular Rate, Rhythm, No JVD, No Murm ur GI/Abdominal: Soft, Non-Tender (Male) Exam: Deferred Rectal (Males) Exam: Deferred Back Exam: Normal Inspection, Full Range of Motion, Vertebral Tenderness Extremities: Normal Inspection, Normal Range of Motion, Non-Tender, No Pedal Edema Neurological: Alert, Oriented Psychiatric: Normal Affect, Normal Mood Skin Exam: Warm, Dry, Intact Lymphatic: No Adenopathy Course - Re-Assessments/Exams Free Text/Narrative Re-Assessment/Exam: 01/16/21 18:23 Labs here indicate the pts potassium is 3.0. Pt will be given P.O. potassium and discharged home. Departure - Departure Time of Disposition: 18:24 Disposition: Home, Self-Care 01 Condition: Good Clinical Impression: Hypokalemia - Discharge Information *PRESCRIPTION DRUG MONITORING PROGRAM REVIEWED*: Not Applicable *COPY OF PRESCRIPTION DRUG MONITORING REPORT IN PATIENT MELISSA: Not Applicable Forms: ED Department Discharge Additional Instructions: Follow up at your primary clinic for a potassium recheck in 1-2 days. <Isaiah Lundberg - Last Filed: 01/16/21 18:43> Course - Vital Signs Last Recorded V/S: Last Vital Signs Temp 98.2 F 01/16/21 17:42 Pulse 93 01/16/21 17:42 Resp 21 H 01/16/21 17:42 BP 107/74 01/16/21 17:42 Pulse Ox 97 01/16/21 17:42 - Orders/Labs/Meds Labs: Laboratory Tests 01/16/21 Range/Units 18:03 Sodium 139 (136-145) mmol/L Potassium 3.0 L D (3.5-5.1) mmol/L Chloride 100 (98-107) mmol/L Carbon Dioxide 30 (21-32) mmol/L Anion Gap 12.0 (7-13) mEq/L BUN 27 H (7-18) mg/dL Creatinine 5.56 H* (0.70-1.30) mg/dL Est Cr Clr Drug Dosing 13.68 mL/min Estimated GFR (MDRD) 10 Glucose 224 H (70-99) mg/dL Calcium 8.6 (8.5-10.1) mg/dL Meds: Medications Discontinued Medications Generic Name Dose Route Start Last Admin Trade Name Freq PRN Reason Stop Dose Admin Potassium Chloride 10 meq/ 100 mls @ 100 mls/hr 01/16/21 17:41 Premix IV 01/16/21 18:40 ONETIME ONE Lidocaine HCl 1 ml 01/16/21 17:42 Lidocaine 1% 30 Ml Sdv INJECT 01/16/21 17:43 ONETIME ONE Potassium Chloride 60 meq 01/16/21 17:41 01/16/21 18:28 Potassium Chloride 10 Meq Tab.Er PO 01/16/21 17:42 60 meq ONETIME ONE Administration Sodium Chloride 10 ml 01/16/21 17:40 Sodium Chloride 0.9% 10 Ml Syringe FLUSH ASDIRECTED PRN Keep Vein Open Sepsis Event Note (ED) - Focused Exam Vital Signs: Vital Signs Temp Pulse Resp BP Pulse Ox 01/16/21 17:42 98.2 F 93 21 H 107/74 97
[2021-01-16 17:47] VITALS: BP 107/74; PULSE 93
== END 2021-01-16 18:52 | disposition home or self-care (01) ==
LOC: DL.ED 16:57
DX: E87.6 Hypokalemia (principal); I25.10 Atherosclerotic heart disease of native coronary artery without angina pectoris; I13.0 Hypertensive heart and chronic kidney disease with heart failure and stage 1 through stage 4 chronic kidney disease, or unspecified chronic kidney disease; E11.22 Type 2 diabetes mellitus with diabetic chronic kidney disease; N18.9 Chronic kidney disease, unspecified; I50.9 Heart failure, unspecified; I25.2 Old myocardial infarction; K21.9 Gastro-esophageal reflux disease without esophagitis; E11.42 Type 2 diabetes mellitus with diabetic polyneuropathy; Z86.16 Personal history of COVID-19; Z79.01 Long term (current) use of anticoagulants; Z79.4 Long term (current) use of insulin; Z79.899 Other long term (current) drug therapy
CPT/HCPCS: 36415; 80048; 99284; A9270

== ENCOUNTER 2021-03-02 14:00 | Inpatient (IN) | payer MEDICARE, OTHER ==
--- NOTE | 2021-03-02 17:36 | EDM.PDOC ---
ED HPI GENERAL MEDICAL PROBLEM - General Chief Complaint: Abdominal Pain Stated Complaint: AMBULANCE Time Seen by Provider: 03/02/21 17:20 Source of Information: Reports: Patient, RN, RN Notes Reviewed History Limitations: Reports: No Limitations - History of Present Illness INITIAL COMMENTS - FREE TEXT/NARRATIVE: Maxi is a 65 y/o male with a history of ESRD on peritoneal dialysis, who presents to the ED via [facility] for complaints of LLQ abdominal pain and diarrhea. The patient reports his symptoms started two days ago and has progressively worsened in that time. Additionally, he notes mild shortness of breath. He denies fever, shaking chills, dizziness, chest pain/pressure, palpitations, nausea, vomiting, dysuria, hematochezia, or melena. He has taken one dose of hydrocodone which provided no alleviation of his pain. Left Lower Abdominal Pain Score (Numeric/FACES): 6 - Related Data Allergies Allergy/AdvReac Type Severity Reaction Status Date / Time No Known Allergies Allergy Verified 03/02/21 17:27 Home Meds: Home Meds Acetaminophen 650 mg PO Q6HR PRN 11/18/20 [History] Apixaban [Eliquis] 5 mg PO BID 11/18/20 [History] Calcium Acetate [PhosLo] 667 mg PO QID 11/18/20 [History] Calcium Citrate/Vitamin D3 [Calcium Citrate - Vit D Caplet] 2 tab PO BID 11/18/20 [History] ClonazePAM [KlonoPIN] 1 mg PO BEDTIME PRN 11/18/20 [History] Darbepoetin Sukh [Aranesp] 150 mcg SUBCUT .MONTHLY 11/18/20 [History] Docusate Sodium 100 mg PO BID PRN 11/18/20 [History] Ezetimibe 10 mg PO DAILY 11/18/20 [History] Furosemide 80 mg PO DAILY 11/18/20 [History] Hydrocodone/Acetaminophen [Hydrocodone-Acetamin 5-325 mg] 1 tab PO TID PRN 11/18/20 [History] Insulin Detemir [Levemir Flextouch] 10 unit SQ BID 11/18/20 [History] Loratadine 10 mg PO DAILY 11/18/20 [History] Metoclopramide HCl [Reglan] 10 mg PO BEDTIME PRN 11/18/20 [History] Midodrine 2.5 mg PO BID 11/18/20 [History] Mupirocin Oint [Bactroban Oint] 22 gm TP DAILY 11/18/20 [History] Omeprazole 20 mg PO ACBREAKFAST 11/18/20 [History] Potassium Chloride 10 meq PO DAILY 11/18/20 [History] Sodium Bicarbonate 650 mg PO BID 11/18/20 [History] atorvaSTATin [Lipitor] 20 mg PO BEDTIME 11/18/20 [History] sevelamer HCL [Sevelamer HCl] 1,600 mg PO TIDMEALS 11/18/20 [History] Gabapentin [Neurontin] 300 mg PO BEDTIME 01/30/21 [History] clonazePAM [Clonazepam] 0.5 mg PO BID PRN 01/30/21 [History] Past Medical History HEENT History: Reports: Impaired Vision, Other (See Below) Other HEENT History: WEARS CORRECTIVE LENSES; UPPER AND LOWER DENTURE PLATE Cardiovascular History: Reports: Blood Clots/VTE/DVT, CAD, Heart Failure, High Cholesterol, Hypertension, [place], Stents Respiratory History: Reports: Bronchitis, Recurrent, Pneumonia, Recurrent, SOB, Other (See Below) Other Respiratory History: -recent bronchitis. Hx COVID 2020 Gastrointestinal History: Reports: Chronic Constipation, Colon Polyp, Gastritis, GERD Other Gastrointestinal History: gall stones Genitourinary History: Reports: BPH, Chronic Renal Insuffiency, Dialysis, Peritoneal Musculoskeletal History: Reports: Fracture Other Musculoskeletal History: missing tip of pinkie on left hand Neurological History: Reports: Headaches, Chronic, Neuropathy, Diabetic, Neuropathy, Peripheral Psychiatric History: Reports: Anxiety Endocrine/Metabolic History: Reports: Diabetes, Type II Hematologic History: Reports: None Immunologic History: Reports: None Oncologic (Cancer) History: Reports: None Dermatologic History: Reports: Other (See Below) Other Dermatologic History: dry skin, peritoneal dialysis site - Infectious Disease History Infectious Disease History: Reports: Chicken Pox, Novel Coronavirus, Other (See Below) Other Infectious Disease History: COVID - Past Surgical History Head Surgeries/Procedures: Reports: None HEENT Surgical History: Reports: None Cardiovascular Surgical History: Reports: Coronary Artery Stent Other Cardiovascular Surgeries/Procedures: 1 stent Respiratory Surgical History: Reports: None GI Surgical History: Reports: Cholecystectomy, Colonoscopy, EGD Male Surgical History: Reports: None Endocrine Surgical History: Reports: None Neurological Surgical History: Reports: None Musculoskeletal Surgical History: Reports: None, Shoulder Surgery Other Musculoskeletal Surgeries/Procedures:: LEFT ANKLE SURGERY Oncologic Surgical History: Reports: None Dermatological Surgical History: Reports: None Social & Family History - Family History Family Medical History: No Pertinent Family History : Reports: Renal Disease/Insufficiency Neurological: Reports: TIA Endocrine/Metabolic: Reports: Diabetes, type II - Caffeine Use Caffeine Use: Reports: Coffee Other Caffeine Use: 1 cup per day Caffeine Use Comment: decaf coffee - Living Situation & Occupation Living situation: Reports: with Family, Occupation: Employed ED ROS GENERAL - Review of Systems Review Of Systems: Comprehensive ROS is negative, except as noted in HPI. ED EXAM, GI/ABD - Physical Exam Exam: See Below Exam Limited By: No Limitations General Appearance: Alert, No Apparent Distress Eyes: Bilateral: Normal Appearance, EOMI Ears: Normal External Exam, Normal Canal, Hearing Grossly Normal, Normal TMs Nose: Normal Inspection, Normal Mucosa, No Blood Throat/Mouth: Normal Teeth (Poor dentition), Normal Oropharynx, Normal Voice, No Airway Compromise Head: Atraumatic, Normocephalic Neck: Normal Inspection, Supple, Non-Tender, Full Range of Motion. No: Lymphadenopathy (L), Lymphadenopathy (R) Respiratory/Chest: No Respiratory Distress, Lungs Clear, Normal Breath Sounds, No Accessory Muscle Use, Chest Non-Tender Cardiovascular: Normal Peripheral Pulses, Regular Rate, Rhythm, No Gallop, No Murmur, No Rub, Tachycardia GI/Abdominal Exam: Soft, No Distention, No Abnormal Bruit, No Mass, Pelvis Stable, Tender (Diffuse to palpation), Abnormal Bowel Sounds (Hyperactive) (Male) Exam: Deferred Rectal (Males) Exam: Deferred Back Exam: Normal Inspection, Full Range of Motion Extremities: Normal Capillary Refill, Arm Pain (Chronic right shoulder pain), Limited Range of Motion (Chronic right shoulder pain). No: Joint Swelling, Increased Warmth, Pallor, Redness Neurological: Alert, Oriented, CN II-XII Intact, Normal Cognition, No Motor/Sensory Deficits Psychiatric: Normal Affect, Normal Mood Skin Exam: Warm, Dry, Intact, Normal Color, No Rash. No: Cyanosis, Jaundice, M ottled, Pallor Course - Vital Signs Last Recorded V/S: Last Vital Signs Temp 97.9 F 03/02/21 17: Pulse 104 H 03/02/21 17:21 Resp 20 03/02/21 17:21 BP Pulse Ox 96 03/02/21 17:21 - Orders/Labs/Meds Orders: Active Orders 24 hr Category Date Time Status Abdomen Pelvis w Cont [CT] Urgent Exams 03/02/21 17:07 Stop Req Abdomen Pelvis wo Cont [CT] Urgent Exams 03/02/21 17:36 Ordered C-REACTIVE PROTEIN [CHEM] Stat Lab 03/02/21 17:06 Ordered CBC WITH AUTO DIFF [HEME] Stat Lab 03/02/21 17:06 Ordered COMPREHENSIVE METABOLIC PN,CMP [CHEM] Stat Lab 03/02/21 17:06 Ordered DRUG SCREEN URINE BIORAD [URCHEM] Urgent Lab 03/02/21 17:07 Ordered LACTATE SEPSIS W/ REFLEX [CHEM] Stat Lab 03/02/21 17:07 Ordered MAGNESIUM [CHEM] Stat Lab 03/02/21 17:06 Ordered UA RFX PATTY AND CULT IF INDIC [URIN] Stat Lab 03/02/21 17:07 Ordered Departure - Discharge Information Forms: ED Department Discharge Sepsis Event Note (ED) - Evaluation Sepsis Screening Result: No Definite Risk - Focused Exam Vital Signs: Vital Signs Temp Pulse Resp Pulse Ox 03/02/21 17:21 97.9 F 104 H 20 96 - My Orders Last 24 Hours: My Active Orders 03/02/21 17:06 C-REACTIVE PROTEIN [CHEM] Stat CBC WITH AUTO DIFF [HEME] Stat COMPREHENSIVE METABOLIC PN,CMP [CHEM] Stat MAGNESIUM [CHEM] Stat 03/02/21 17:07 Abdomen Pelvis w Cont [CT] Urgent DRUG SCREEN URINE BIORAD [URCHEM] Urgent LACTATE SEPSIS W/ REFLEX [CHEM] Stat UA RFX PATTY AND CULT IF INDIC [URIN] Stat 03/02/21 17:36 Abdomen Pelvis wo Cont [CT] Urgent - Assessment/Plan Last 24 Hours: My Active Orders 03/02/21 17:06 C-REACTIVE PROTEIN [CHEM] Stat CBC WITH AUTO DIFF [HEME] Stat COMPREHENSIVE METABOLIC PN,CMP [CHEM] Stat MAGNESIUM [CHEM] Stat 03/02/21 17:07 Abdomen Pelvis w Cont [CT] Urgent DRUG SCREEN URINE BIORAD [URCHEM] Urgent LACTATE SEPSIS W/ REFLEX [CHEM] Stat UA RFX PATTY AND CULT IF INDIC [URIN] Stat 03/02/21 17:36 Abdomen Pelvis wo Cont [CT] Urgent
[2021-03-02 18:07] LABS: ANION GAP 15.7 mEq/L (7-13); CHLORIDE,CL 93 mmol/L (98-107); SODIUM,NA 132 mmol/L (136-145)
[2021-03-02] MEDS ORDERED: Piperacillin/Tazobactam 2.25 GM in Sodium Chloride 0.9% 50 ML IV ONE (18:42)
--- NOTE | 2021-03-02 19:10 | CT ---
PROCEDURE INFORMATION: Exam: CT Abdomen And Pelvis Without Contrast Exam date and time: 03/02/2021 6:03 PM Age: 65 years old Clinical indication: Other: Creat 5.9--wbc 15,000; Additional info: Llq abdominal pain, inferior to dialysis port TECHNIQUE: Imaging protocol: Computed tomography of the abdomen and pelvis without contrast. Radiation optimization: All CT scans at this facility use at least one of these dose optimization techniques: automated exposure control; mA and/or kV adjustment per patient size (includes targeted exams where dose is matched to clinical indication); or iterative reconstruction. COMPARISON: CT Abdomen Pelvis wo Cont 02/10/2018 7:01 PM FINDINGS: Lungs: Coarse chronic interstitial changes observed in both lungs. Elevated left hemidiaphragm with volume loss. Radiographic findings do not suggest acute pulmonary consolidation. Heart: Borderline cardiomegaly. Liver: Normal. No mass. Gallbladder and bile ducts: Cholecystectomy. Pancreas: Normal. No ductal dilation. Spleen: Normal. No splenomegaly. Adrenal glands: Normal. No mass. Kidneys and ureters: Bilateral renal atrophy. No hydronephrosis. Stomach and bowel: Unremarkable. No obstruction. No mucosal thickening. Appendix: No evidence of appendicitis. Intraperitoneal space: Unremarkable. No free air. No significant fluid collection. Vasculature: Unremarkable. No abdominal aortic aneurysm. Lymph nodes: Unremarkable. No enlarged lymph nodes. Urinary bladder: Unremarkable as visualized. Reproductive: Unremarkable as visualized. Bones/joints: There is a large lytic or postsurgical defect in the right humeral head with with multiple bubbles of gas in the adjacent subcutaneous tissue. If this is not a surgical defect the the possibility of infection or neoplasm should be considered. Dedicated imaging of the right shoulder including radiographs, CT and/or MR recommended for further evaluation. Soft tissues: Peritoneal dialysis catheter terminates in the pelvis. IMPRESSION: 1. Chronic appearing interstitial changes observed in both lungs with the volume loss. 2. Cholecystectomy. 3. Moderate free intraperitoneal fluid possibly due to indwelling peritoneal dialysis catheter. 4. Question osteolytic lesion of the right humeral head with associated subcutaneous gas. Dedicated imaging of the right humerus recommended, as above. 5. Bilateral renal cortical atrophy.
[2021-03-02] MEDS ORDERED: fentaNYL 100 MCG/2 ML SDV IVPUSH ONE (19:48)
[2021-03-03] MEDS ORDERED: Ondansetron 4 MG Tab.DIS PO PRN (00:01)
[2021-03-03] MEDS: Acetaminophen/HYDROcodone 325-5 MG Tab PO PRN ×2 (01:25→09:05)
[2021-03-03] MEDS: Acetaminophen 325 MG Tab PO PRN ×2 (05:39→12:40)
[2021-03-03 06:56] LABS: ANION GAP 15.6 mEq/L (7-13)
[2021-03-03] MEDS ORDERED: 50% Dextrose in Water 50 ML Syringe IVPUSH PRN (08:17)
[2021-03-03] MEDS ORDERED: Glucagon,Human Recombinant 1 MG Vial IM PRN (08:17)
[2021-03-03] MEDS ORDERED: Insulin Glarg,Human.Rec.Analog 100 Unit/ML SUBCUT ONE (08:17)
[2021-03-03] MEDS ORDERED: Insulin Lispro 100 Units/ML 3 ML Vial SUBCUT ONE (09:15)
[2021-03-03] MEDS: Insulin Lispro 100 Units/ML 3 ML Vial SUBCUT SCH ×2 (12:31→17:38)
[2021-03-03] MEDS ORDERED: Meropenem 1 GM SDV SCH ×2 (13:45→21:00)
[2021-03-03] MEDS: HYDROmorphone 0.5 MG/0.5 ML Syringe IVPUSH PRN ×2 (16:19→20:16)
--- NOTE | 2021-03-03 17:49 | PCM.HP ---
H&P History of Present Illness - General Date of Service: 03/02/21 Admit Problem/Dx: Admission Diagnosis/Problem Admission Diagnosis/Problem Abdominal pain - History of Present Illness Initial Comments - Free Text/Narative: Maxi is a 65-year-old man who presents to the ED with right-sided abdominal pain for the past 24 hours. Maxi has end-stage renal disease, and currently does peritoneal dialysis nightly. He reports that starting yesterday, he had very little appetite, and that the pain got fairly severe. He thinks he may have had a little bit of a fever yesterday as well. Upon his arrival to the ED, he was found to have a white count of 16,500 with 87% neutrophils. Decision was made to admit him for empiric treatment of possible peritonitis secondary to his peritoneal dialysis. Past medical history is notable for: -End-stage renal disease, on peritoneal dialysis, he does 3 bags of dialysate nightly -Type 2 diabetes mellitus, uncontrolled, with renal complications -History of non-ST elevation DE in 2017 -Essential hypertension, resistant -HFpEF, secondary to above Left Lower Abdominal Pain Score (Numeric/FACES): 5 - Related Data Allergies/Adverse Reactions: Allergies Allergy/AdvReac Type Severity Reaction Status Date / Time No Known Allergies Allergy Verified 03/02/21 17:27 Home Medications: Home Meds Acetaminophen 650 mg PO Q6HR PRN 11/18/20 [History] Calcium Citrate/Vitamin D3 [Calcium Citrate - Vit D Caplet] 2 tab PO BID 11/18/20 [History] Darbepoetin Sukh [Aranesp] 150 mcg SUBCUT .MONTHLY 11/18/20 [History] Docusate Sodium 100 mg PO BID PRN 11/18/20 [History] Ezetimibe 10 mg PO DAILY 11/18/20 [History] Furosemide 80 mg PO DAILY 11/18/20 [History] Hydrocodone/Acetaminophen [Hydrocodone-Acetamin 5-325 mg] 1 tab PO TID PRN 11/18/20 [History] Insulin Detemir [Levemir Flextouch] 10 unit SQ BID 11/18/20 [History] Loratadine 10 mg PO DAILY 11/18/20 [History] Metoclopramide HCl [Reglan] 10 mg PO BEDTIME PRN 11/18/20 [History] Omeprazole 20 mg PO ACBREAKFAST 11/18/20 [History] Potassium Chloride 10 meq PO DAILY 11/18/20 [History] Sodium Bicarbonate 650 mg PO BID 11/18/20 [History] sevelamer HCL [Sevelamer HCl] 1,600 mg PO TIDMEALS 11/18/20 [History] Gabapentin [Neurontin] 300 mg PO BEDTIME 01/30/21 [History] clonazePAM [Clonazepam] 0.5 mg PO BID PRN 01/30/21 [History] Past Medical History HEENT History: Reports: Impaired Vision, Other (See Below) Other HEENT History: WEARS CORRECTIVE LENSES; UPPER AND LOWER DENTURE PLATE Cardiovascular History: Reports: Blood Clots/VTE/DVT, CAD, Heart Failure, High Cholesterol, Hypertension, DE, Stents Respiratory History: Reports: Bronchitis, Recurrent, Pneumonia, Recurrent, SOB, Other (See Below) Other Respiratory History: -recent bronchitis. Hx COVID 2020 Gastrointestinal History: Reports: Chronic Constipation, Colon Polyp, Gastritis, GERD Other Gastrointestinal History: gall stones Genitourinary History: Reports: BPH, Chronic Renal Insuffiency, Dialysis, Peritoneal Musculoskeletal History: Reports: Fracture Other Musculoskeletal History: missing tip of pinkie on left hand Neurological History: Reports: Headaches, Chronic, Neuropathy, Diabetic, Neuropathy, Peripheral Psychiatric History: Reports: Anxiety Endocrine/Metabolic History: Reports: Diabetes, Type II Hematologic History: Reports: None Immunologic History: Reports: None Oncologic (Cancer) History: Reports: None Dermatologic History: Reports: Other (See Below) Other Dermatologic History: dry skin, peritoneal dialysis site - Infectious Disease History Infectious Disease History: Reports: Chicken Pox, Novel Coronavirus, Other (See Below) Other Infectious Disease History: COVID - Past Surgical History Head Surgeries/Procedures: Reports: None HEENT Surgical History: Reports: None Cardiovascular Surgical History: Reports: Coronary Artery Stent Other Cardiovascular Surgeries/Procedures: 1 stent Respiratory Surgical History: Reports: None GI Surgical History: Reports: Cholecystectomy, Colonoscopy, EGD Male Surgical History: Reports: None Endocrine Surgical History: Reports: None Neurological Surgical History: Reports: None Musculoskeletal Surgical History: Reports: None, Shoulder Surgery Other Musculoskeletal Surgeries/Procedures:: LEFT ANKLE SURGERY Oncologic Surgical History: Reports: None Dermatological Surgical History: Reports: None Social & Family History - Family History Family Medical History: No Pertinent Family History : Reports: Renal Disease/Insufficiency Neurological: Reports: TIA Endocrine/Metabolic: Reports: Diabetes, type II - Tobacco Use Tobacco Use Status *Q: Never Tobacco User Second Hand Smoke Exposure: No - Caffeine Use Caffeine Use: Reports: Coffee Other Caffeine Use: 1 cup per day Caffeine Use Comment: decaf coffee - Recreational Drug Use Recreational Drug Use: No - Living Situation & Occupation Living situation: Reports: with Family, Occupation: Employed H&P Review of Systems - Review of Systems: Review Of Systems: See Below General: Reports: Other (See HPI) HEENT: Denies: Hearing Changes, Visual Changes Pulmonary: Denies: Shortness of Breath, Wheezing Cardiovascular: Denies: Chest Pain, Palpitations Gastrointestinal: Denies: Hematochezia, Melena, Vomiting Genitourinary: Denies: Dysuria, Hematuria Musculoskeletal: Denies: Joint Pain, Joint Swelling Skin: Denies: Jaundice, Bruising Neurological: Denies: Difficulty Walking, Change in Speech Hematologic/Lymphatic: Denies: Easy Bleeding, Easy Bruising Review of Systems Comment:: Rest of his review of systems is complete and negative Exam - Exam Exam: See Below - Vital Signs Vital Signs: Last Vital Signs Temp 100.7 F H 03/03/21 16:20 Pulse 118 H 03/03/21 16:20 Resp 21 H 03/03/21 16:20 BP 136/64 03/03/21 16:20 Pulse Ox 95 03/03/21 16:20 Weight: 207 lb 8 oz - Exam Physical Exam Comments:: General: Maxi is a 65-year-old man in no acute distress Oropharynx is clear, mucous membranes are moist Neck: Supple, no lymphadenopathy Heart: Regular rate and rhythm, 2 out of 6 systolic murmur best heard over the left sternal border Lungs: Clear to auscultation throughout Abdomen: Soft, diffuse tenderness in his right upper and lower quadrants. Normal bowel sounds heard throughout. His peritoneal dialysis site appears clean dry and intact, no sign of infection - Patient Data Lab Results Last 24 hrs: Laboratory Results - last 24 hr 03/02/21 03/02/21 03/02/21 Range/Units 17:34 17:34 17:34 WBC 16.5 H (5.0-10.0) 10^3/uL RBC 3.82 L (4.6-6.2) 10^6/uL Hgb 9.7 L (14.0-18.0) g/dL Hct 30.5 L (40.0-54.0) % MCV 79.8 L D (80-100) fL MCH 25.4 L (27.0-34.0) pg MCHC 31.8 L (33.0-35.0) g/dL Plt Count 261 D (150-450) 10^3/uL Neut % (Auto) 86.8 H (42.2-75.2) % Lymph % (Auto) 6.7 L (20.5-50.1) % [place] % (Auto) 6.2 (2-8) % Eos % (Auto) 0.1 L (1.0-3.0) % Baso % (Auto) 0.2 (0.0-1.0) % Sodium 132 L (136-145) mmol/L Potassium 3.7 (3.5-5.1) mmol/L Chloride 93 L (98-107) mmol/L Carbon Dioxide 27 (21-32) mmol/L Anion Gap 15.7 H (7-13) mEq/L BUN 51 H (7-18) mg/dL Creatinine 5.90 H* (0.70-1.30) mg/dL Est Cr Clr Drug Dosing TNP Estimated GFR (MDRD) 10 BUN/Creatinine Ratio 8.6 (No establ ref range) Glucose 324 H (70-99) mg/dL POC Glucose (70-99) mg/dL Lactic Acid 1.6 (0.4-2.0) mmol/L Calcium 9.1 (8.5-10.1) mg/dL Magnesium 1.5 L (1.8-2.4) mg/dL Total Bilirubin 1.0 (0.2-1.0) mg/dL AST 18 (15-37) U/L ALT 20 (16-63) U/L Alkaline Phosphatase 186 H (46-116) U/L C-Reactive Protein 28.2 H (0.0-0.9) mg/dL Total Protein 7.4 (6.4-8.2) g/dL Albumin 2.0 L (3.4-5.0) g/dL Globulin 5.4 Albumin/Globulin Ratio 0.37 SARS CoV-2 RNA Rapid MARGOTH (NEGATIVE) 03/02/21 03/03/21 03/03/21 Range/Units 20:02 06:00 06:00 WBC 13.2 H (5.0-10.0) 10^3/uL RBC 3.43 L (4.6-6.2) 10^6/uL Hgb 8.6 L (14.0-18.0) g/dL Hct 27.5 L (40.0-54.0) % MCV 80.2 (80-100) fL MCH 25.1 L (27.0-34.0) pg MCHC 31.3 L (33.0-35.0) g/dL Plt Count 254 (150-450) 10^3/uL Neut % (Auto) 84.0 H (42.2-75.2) % Lymph % (Auto) 9.5 L (20.5-50.1) % [place] % (Auto) 5.8 (2-8) % Eos % (Auto) 0.5 L (1.0-3.0) % Baso % (Auto) 0.2 (0.0-1.0) % Sodium 130 L (136-145) mmol/L Potassium 3.6 (3.5-5.1) mmol/L Chloride 92 L (98-107) mmol/L Carbon Dioxide 26 (21-32) mmol/L Anion Gap 15.6 H (7-13) mEq/L BUN 50 H (7-18) mg/dL Creatinine 5.67 H* (0.70-1.30) mg/dL Est Cr Clr Drug Dosing 13.41 Estimated GFR (MDRD) 10 BUN/Creatinine Ratio 8.8 (No establ ref range) Glucose 515 H* (70-99) mg/dL POC Glucose (70-99) mg/dL Lactic Acid (0.4-2.0) mmol/L Calcium 8.5 (8.5-10.1) mg/dL Magnesium (1.8-2.4) mg/dL Total Bilirubin 0.8 (0.2-1.0) mg/dL AST 14 L (15-37) U/L ALT 17 (16-63) U/L Alkaline Phosphatase 159 H (46-116) U/L C-Reactive Protein (0.0-0.9) mg/dL Total Protein 6.6 (6.4-8.2) g/dL Albumin 1.7 L (3.4-5.0) g/dL Globulin 4.9 Albumin/Globulin Ratio 0.35 SARS CoV-2 RNA Rapid MARGOTH Negative (NEGATIVE) 03/03/21 03/03/21 Range/Units 11:33 17:01 WBC (5.0-10.0) 10^3/uL RBC (4.6-6.2) 10^6/uL Hgb (14.0-18.0) g/dL Hct (40.0-54.0) % MCV (80-100) fL MCH (27.0-34.0) pg MCHC (33.0-35.0) g/dL Plt Count (150-450) 10^3/uL Neut % (Auto) (42.2-75.2) % Lymph % (Auto) (20.5-50.1) % [place] % (Auto) (2-8) % Eos % (Auto) (1.0-3.0) % Baso % (Auto) (0.0-1.0) % Sodium (136-145) mmol/L Potassium (3.5-5.1) mmol/L Chloride (98-107) mmol/L Carbon Dioxide (21-32) mmol/L Anion Gap (7-13) mEq/L BUN (7-18) mg/dL Creatinine (0.70-1.30) mg/dL Est Cr Clr Drug Dosing Estimated GFR (MDRD) BUN/Creatinine Ratio (No establ ref range) Glucose (70-99) mg/dL POC Glucose 326 H 170 H (70-99) mg/dL Lactic Acid (0.4-2.0) mmol/L Calcium (8.5-10.1) mg/dL Magnesium (1.8-2.4) mg/dL Total Bilirubin (0.2-1.0) mg/dL AST (15-37) U/L ALT (16-63) U/L Alkaline Phosphatase (46-116) U/L C-Reactive Protein (0.0-0.9) mg/dL Total Protein (6.4-8.2) g/dL Albumin (3.4-5.0) g/dL Globulin Albumin/Globulin Ratio SARS CoV-2 RNA Rapid MARGOTH (NEGATIVE) Result Diagrams: 03/03/21 06:00 03/03/21 06:00 *Q Meaningful Use (ADM) - VTE Risk Assess *Q Each Risk Factor Represents 1 Point: Congestive heart failure (CHF) Total Score 1 Point Risk Factors: 1 Each Risk Factor Represents 2 Points: Age 60 - 74 Years Total Score 2 Point Risk Factors: 2 Each Risk Factor Represents 3 Points: None Total Score 3 Point Risk Factors: 0 Each Risk Factor Represents 5 Points: None Total Score 5 Point Risk Factors: 0 Venous Thromboembolism Risk Factor Score *Q: 3 - Problem List (1) CHF (congestive heart failure), NYHA class I SNOMED Code(s): 20407270, 989353729 ICD Code: I50.9 - HEART FAILURE, UNSPECIFIED Status: Acute Current Visit: No Qualifiers: Congestive heart failure type: unspecified congestive heart failure type Qualified Code(s): I50.9 - Heart failure, unspecified (2) End stage renal disease on dialysis SNOMED Code(s): 072865860 ICD Code: N18.6 - END STAGE RENAL DISEASE; Z99.2 - DEPENDENCE ON RENAL DIALYSIS Status: Acute Priority: High Current Visit: No (3) Febrile illness, acute SNOMED Code(s): 779349776 ICD Code: R50.9 - FEVER, UNSPECIFIED Status: Acute Current Visit: No (4) Diabetes mellitus type 2 with complications SNOMED Code(s): 67804824, 340789085 ICD Code: E11.8 - TYPE 2 DIABETES MELLITUS WITH UNSPECIFIED COMPLICATIONS Status: Chronic Priority: Medium Current Visit: No Problem List Initiated/Reviewed/Updated: Yes Orders Last 24hrs: Active Orders 24 hr Category Date Time Status Admission Diagnosis [ADT] Stat ADT 03/02/21 22:53 Ordered Admission Status [Patient Status] [ADT] Routine ADT 03/02/21 22:53 Active Blood Glucose Check, Bedside [RC] QIDACANDBED Care 03/03/21 08:16 Active Oxygen Therapy [RC] PRN Care 03/03/21 00:01 Active Up ad Shani [RC] ASDIRECTED Care 03/03/21 00:01 Active VTE/DVT Education [RC] 08,20 Care 03/03/21 00:01 Active Vital Signs [RC] 00,04,08,12,16,20 Care 03/03/21 00:01 Active Regular Diet [DIET] Diet 03/03/21 Breakfast Active CBC WITH AUTO DIFF [HEME] AM Lab 03/04/21 05:11 Ordered COMPREHENSIVE METABOLIC PN,CMP [CHEM] AM Lab 03/04/21 05:11 Ordered CULTURE BLOOD [BC] Stat Lab 03/02/21 17:34 Received DRUG SCREEN URINE BIORAD [URCHEM] Urgent Lab 03/02/21 17:07 Ordered GLYCOSYLATED HEMOGLOBIN,HGBA1C [CHEM] AM Lab 03/04/21 05:11 Ordered LIPASE [CHEM] AM Lab 03/04/21 05:11 Ordered UA RFX PATTY AND CULT IF INDIC [URIN] Stat Lab 03/02/21 17:07 Ordered Acetaminophen [TylenoL] Med 03/03/21 00:01 Active 650 mg PO Q4H PRN Acetaminophen/HYDROcodone [[place] 325-5 MG] Med 03/03/21 01:07 Active 1 tab PO TID PRN Dextrose 50% in Water Med 03/03/21 08:17 Active 50 ml IVPUSH Q15M PRN Glucagon,Human Recombinant [GlucaGen] Med 03/03/21 08:17 Active 1 mg IM Q15M PRN HYDROmorphone [Dilaudid] Med 03/03/21 13:29 Active 0.5 mg IVPUSH Q4H PRN Insulin Lispro [HumaLOG] Med 03/03/21 12:00 Active See Protocol SUBCUT TIDMEALS Meropenem [Merrem] Med 03/03/21 13:45 Active 1 gm .XX Q24H Ondansetron [Zofran ODT] Med 03/03/21 00:01 Active 4 mg PO Q6H PRN Blood Culture x2 Reflex Set [OM.PC] Stat Oth 03/02/21 17:45 Ordered Medication Orders Acetaminophen (Acetaminophen 325 Mg Tab) 650 mg PO Q4H PRN PRN Reason: Pain (Mild 1-3)/fever Last Admin: 03/03/21 12:40 Dose: 650 mg Documented by: Admin: 03/03/21 05:39 Dose: 650 mg Documented by: BENITO Hydrocodone Bitart/Acetaminophen (Acetaminophen/Hydrocodone 325-5 Mg Tab) 1 tab PO TID PRN PRN Reason: Pain (severe 7-10) Last Admin: 03/03/21 09:05 Dose: 1 tab Documented by: Admin: 03/03/21 01:25 Dose: 1 tab Documented by: CAREMEG Dextrose/Water (50% Dextrose In Water 50 Ml Syringe) 50 ml IVPUSH Q15M PRN PRN Reason: Hypoglycemia Glucagon (Glucagon,Human Recombinant 1 Mg Vial) 1 mg IM Q15M PRN PRN Reason: Hypoglycemia Hydromorphone HCl (Hydromorphone 0.5 Mg/0.5 Ml Syringe) 0.5 mg IVPUSH Q4H PRN PRN Reason: Pain Last Admin: 03/03/21 16:19 Dose: 0.5 mg Documented by: LISBET Insulin Human Lispro (Insulin Lispro 100 Units/Ml 3 Ml Vial) 0 unit SUBCUT TIDMEALS ELVI; Protocol Last Admin: 03/03/21 12:31 Dose: 8 units Documented by: LISBET Meropenem (Meropenem 1 Gm Sdv) 1 gm .XX Q24H ELVI Ondansetron HCl (Ondansetron 4 Mg Tab.Dis) 4 mg PO Q6H PRN PRN Reason: nausea, able to take PO Assessment/Plan Comment:: Assessment/Plan: 1. 65-year-old man with end-stage renal disease, currently on peritoneal dialysis 2. Febrile illness with elevated white count with left shift, which in a peritoneal dialysis patient is peritonitis until proven otherwise -He received a dose of levofloxacin in the ED 3. Type 2 diabetes mellitus, uncontrolled, with renal complications -Continue home medications -4 times daily blood sugars -Sliding scale insulin to cover -Maxi reports that he frequently has blood sugars in the 300-500 range 4. Acute on chronic HFpEF, NYHA class I 5. VTE prophylaxis: I will need to consult about VTE prophylaxis for someone w ith peritoneal dialysis. He is certainly at high risk of VTE
--- NOTE | 2021-03-03 18:12 | PCM.PN ---
- General Info Date of Service: 03/03/21 Admission Dx/Problem (Free Text): Admission Diagnosis/Problem Admission Diagnosis/Problem Abdominal pain Subjective Update: Maxi continues to have significant pain. He was afebrile throughout the night, but has a very poor appetite this morning. He was noted to have a blood sugar of over 500 this morning on his metabolic panel. - Patient Data Vitals - Most Recent: Last Vital Signs Temp 100.6 F 03/03/21 17:30 Pulse 118 H 03/03/21 16:20 Resp 21 H 03/03/21 16:20 BP 136/64 03/03/21 16:20 Pulse Ox 95 03/03/21 16:20 Weight - Most Recent: 207 lb 8 oz Lab Results Last 24 Hours: Laboratory Results - last 24 hr 03/02/21 03/02/21 03/03/21 Range/Units 17:34 20:02 06:00 WBC 13.2 H (5.0-10.0) 10^3/uL RBC 3.43 L (4.6-6.2) 10^6/uL Hgb 8.6 L (14.0-18.0) g/dL Hct 27.5 L (40.0-54.0) % MCV 80.2 (80-100) fL MCH 25.1 L (27.0-34.0) pg MCHC 31.3 L (33.0-35.0) g/dL Plt Count 254 (150-450) 10^3/uL Neut % (Auto) 84.0 H (42.2-75.2) % Lymph % (Auto) 9.5 L (20.5-50.1) % [place] % (Auto) 5.8 (2-8) % Eos % (Auto) 0.5 L (1.0-3.0) % Baso % (Auto) 0.2 (0.0-1.0) % Sodium 132 L (136-145) mmol/L Potassium 3.7 (3.5-5.1) mmol/L Chloride 93 L (98-107) mmol/L Carbon Dioxide 27 (21-32) mmol/L Anion Gap 15.7 H (7-13) mEq/L BUN 51 H (7-18) mg/dL Creatinine 5.90 H* (0.70-1.30) mg/dL Est Cr Clr Drug Dosing TNP Estimated GFR (MDRD) 10 BUN/Creatinine Ratio 8.6 (No establ ref range) Glucose 324 H (70-99) mg/dL POC Glucose (70-99) mg/dL Calcium 9.1 (8.5-10.1) mg/dL Magnesium 1.5 L (1.8-2.4) mg/dL Total Bilirubin 1.0 (0.2-1.0) mg/dL AST 18 (15-37) U/L ALT 20 (16-63) U/L Alkaline Phosphatase 186 H (46-116) U/L C-Reactive Protein 28.2 H (0.0-0.9) mg/dL Total Protein 7.4 (6.4-8.2) g/dL Albumin 2.0 L (3.4-5.0) g/dL Globulin 5.4 Albumin/Globulin Ratio 0.37 SARS CoV-2 RNA Rapid MARGOTH Negative (NEGATIVE) 03/03/21 03/03/21 03/03/21 Range/Units 06:00 11:33 17:01 WBC (5.0-10.0) 10^3/uL RBC (4.6-6.2) 10^6/uL Hgb (14.0-18.0) g/dL Hct (40.0-54.0) % MCV (80-100) fL MCH (27.0-34.0) pg MCHC (33.0-35.0) g/dL Plt Count (150-450) 10^3/uL Neut % (Auto) (42.2-75.2) % Lymph % (Auto) (20.5-50.1) % [place] % (Auto) (2-8) % Eos % (Auto) (1.0-3.0) % Baso % (Auto) (0.0-1.0) % Sodium 130 L (136-145) mmol/L Potassium 3.6 (3.5-5.1) mmol/L Chloride 92 L (98-107) mmol/L Carbon Dioxide 26 (21-32) mmol/L Anion Gap 15.6 H (7-13) mEq/L BUN 50 H (7-18) mg/dL Creatinine 5.67 H* (0.70-1.30) mg/dL Est Cr Clr Drug Dosing 13.41 Estimated GFR (MDRD) 10 BUN/Creatinine Ratio 8.8 (No establ ref range) Glucose 515 H* (70-99) mg/dL POC Glucose 326 H 170 H (70-99) mg/dL Calcium 8.5 (8.5-10.1) mg/dL Magnesium (1.8-2.4) mg/dL Total Bilirubin 0.8 (0.2-1.0) mg/dL AST 14 L (15-37) U/L ALT 17 (16-63) U/L Alkaline Phosphatase 159 H (46-116) U/L C-Reactive Protein (0.0-0.9) mg/dL Total Protein 6.6 (6.4-8.2) g/dL Albumin 1.7 L (3.4-5.0) g/dL Globulin 4.9 Albumin/Globulin Ratio 0.35 SARS CoV-2 RNA Rapid MARGOTH (NEGATIVE) Sabino Results Last 24 Hours: Microbiology 03/02/21 17:34 Aerobic Blood Culture - Preliminary Blood - Arm, Left NO GROWTH AFTER 1 DAY Anaerobic Blood Culture - Preliminary NO GROWTH AFTER 1 DAY Med Orders - Current: Current Medications Acetaminophen (Acetaminophen 325 Mg Tab) 650 mg PO Q4H PRN PRN Reason: Pain (Mild 1-3)/fever Last Admin: 03/03/21 12:40 Dose: 650 mg Documented by: Hydrocodone Bitart/Acetaminophen (Acetaminophen/Hydrocodone 325-5 Mg Tab) 1 tab PO TID PRN PRN Reason: Pain (severe 7-10) Last Admin: 03/03/21 09:05 Dose: 1 tab Documented by: Dextrose/Water (50% Dextrose In Water 50 Ml Syringe) 50 ml IVPUSH Q15M PRN PRN Reason: Hypoglycemia Glucagon (Glucagon,Human Recombinant 1 Mg Vial) 1 mg IM Q15M PRN PRN Reason: Hypoglycemia Hydromorphone HCl (Hydromorphone 0.5 Mg/0.5 Ml Syringe) 0.5 mg IVPUSH Q4H PRN PRN Reason: Pain Last Admin: 03/03/21 16:19 Dose: 0.5 mg Documented by: Insulin Human Lispro (Insulin Lispro 100 Units/Ml 3 Ml Vial) 0 unit SUBCUT TIDMEALS [facility]; Protocol Last Admin: 03/03/21 17:38 Dose: 2 units Documented by: Meropenem (Meropenem 1 Gm Sdv) 1 gm .XX Q24H ELVI Ondansetron HCl (Ondansetron 4 Mg Tab.Dis) 4 mg PO Q6H PRN PRN Reason: nausea, able to take PO Discontinued Medications Fentanyl (Fentanyl 100 Mcg/2 Ml Sdv) 50 mcg IVPUSH ONETIME ONE; Protocol Stop: 03/02/21 19:49 Last Admin: 03/02/21 19:54 Dose: 50 mcg Documented by: Piperacillin Sod/Tazobactam (Sod 2.25 gm/ Sodium Chloride) 50 mls @ 100 mls/hr IV ONETIME ONE Stop: 03/02/21 19:11 Last Admin: 03/02/21 19:09 Dose: 100 mls/hr Documented by: Insulin Glargine (Insulin Glarg,Human.Rec.Analog 100 Unit/Ml) 10 unit SUBCUT ONETIME ONE Stop: 03/03/21 08:18 Last Admin: 03/03/21 09:04 Dose: 10 units Documented by: Insulin Human Lispro (Insulin Lispro 100 Units/Ml 3 Ml Vial) 14 unit SUBCUT ONETIME ONE Stop: 03/03/21 09:16 Last Admin: 03/03/21 09:42 Dose: 14 units Documented by: - Exam Physical Findings Comments:: General: Maxi is a 65-year-old man in no acute distress Oropharynx is clear, mucous membranes are moist Abdomen: Soft, diffuse tenderness still on the right side, normal bowel sounds heard throughout - Patient Data Lab Results Last 24 hrs: Laboratory Results - last 24 hr 03/02/21 03/02/21 03/03/21 Range/Units 17:34 20:02 06:00 WBC 13.2 H (5.0-10.0) 10^3/uL RBC 3.43 L (4.6-6.2) 10^6/uL Hgb 8.6 L (14.0-18.0) g/dL Hct 27.5 L (40.0-54.0) % MCV 80.2 (80-100) fL MCH 25.1 L (27.0-34.0) pg MCHC 31.3 L (33.0-35.0) g/dL Plt Count 254 (150-450) 10^3/uL Neut % (Auto) 84.0 H (42.2-75.2) % Lymph % (Auto) 9.5 L (20.5-50.1) % [place] % (Auto) 5.8 (2-8) % Eos % (Auto) 0.5 L (1.0-3.0) % Baso % (Auto) 0.2 (0.0-1.0) % Sodium 132 L (136-145) mmol/L Potassium 3.7 (3.5-5.1) mmol/L Chloride 93 L (98-107) mmol/L Carbon Dioxide 27 (21-32) mmol/L Anion Gap 15.7 H (7-13) mEq/L BUN 51 H (7-18) mg/dL Creatinine 5.90 H* (0.70-1.30) mg/dL Est Cr Clr Drug Dosing TNP Estimated GFR (MDRD) 10 BUN/Creatinine Ratio 8.6 (No establ ref range) Glucose 324 H (70-99) mg/dL POC Glucose (70-99) mg/dL Calcium 9.1 (8.5-10.1) mg/dL Magnesium 1.5 L (1.8-2.4) mg/dL Total Bilirubin 1.0 (0.2-1.0) mg/dL AST 18 (15-37) U/L ALT 20 (16-63) U/L Alkaline Phosphatase 186 H (46-116) U/L C-Reactive Protein 28.2 H (0.0-0.9) mg/dL Total Protein 7.4 (6.4-8.2) g/dL Albumin 2.0 L (3.4-5.0) g/dL Globulin 5.4 Albumin/Globulin Ratio 0.37 SARS CoV-2 RNA Rapid MARGOTH Negative (NEGATIVE) 03/03/21 03/03/21 03/03/21 Range/Units 06:00 11:33 17:01 WBC (5.0-10.0) 10^3/uL RBC (4.6-6.2) 10^6/uL Hgb (14.0-18.0) g/dL Hct (40.0-54.0) % MCV (80-100) fL MCH (27.0-34.0) pg MCHC (33.0-35.0) g/dL Plt Count (150-450) 10^3/uL Neut % (Auto) (42.2-75.2) % Lymph % (Auto) (20.5-50.1) % [place] % (Auto) (2-8) % Eos % (Auto) (1.0-3.0) % Baso % (Auto) (0.0-1.0) % Sodium 130 L (136-145) mmol/L Potassium 3.6 (3.5-5.1) mmol/L Chloride 92 L (98-107) mmol/L Carbon Dioxide 26 (21-32) mmol/L Anion Gap 15.6 H (7-13) mEq/L BUN 50 H (7-18) mg/dL Creatinine 5.67 H* (0.70-1.30) mg/dL Est Cr Clr Drug Dosing 13.41 Estimated GFR (MDRD) 10 BUN/Creatinine Ratio 8.8 (No establ ref range) Glucose 515 H* (70-99) mg/dL POC Glucose 326 H 170 H (70-99) mg/dL Calcium 8.5 (8.5-10.1) mg/dL Magnesium (1.8-2.4) mg/dL Total Bilirubin 0.8 (0.2-1.0) mg/dL AST 14 L (15-37) U/L ALT 17 (16-63) U/L Alkaline Phosphatase 159 H (46-116) U/L C-Reactive Protein (0.0-0.9) mg/dL Total Protein 6.6 (6.4-8.2) g/dL Albumin 1.7 L (3.4-5.0) g/dL Globulin 4.9 Albumin/Globulin Ratio 0.35 SARS CoV-2 RNA Rapid MARGOTH (NEGATIVE) Result Diagrams: 03/03/21 06:00 03/03/21 06:00 Sabino Results Last 24 hrs: Microbiology 03/02/21 17:34 Aerobic Blood Culture - Preliminary Blood - Arm, Left NO GROWTH AFTER 1 DAY Anaerobic Blood Culture - Preliminary NO GROWTH AFTER 1 DAY Sepsis Event Note - Evaluation Sepsis Screening Result: Possible Sepsis Risk - Focused Exam Vital Signs: Vital Signs Temp Pulse Resp BP Pulse Ox 03/03/21 17:30 100.6 F 03/03/21 16:20 100.7 F H 118 H 21 H 136/64 95 03/03/21 12:00 97.8 F 82 20 108/60 97 03/03/21 07:55 97.8 F 80 18 99/65 95 - Problem List & Annotations (1) CHF (congestive heart failure), NYHA class I SNOMED Code(s): 99629734, 520023647 Code(s): I50.9 - HEART FAILURE, UNSPECIFIED Status: Acute Current Visit: No Qualifiers: Congestive heart failure type: unspecified congestive heart failure type Qualified Code(s): I50.9 - Heart failure, unspecified (2) End stage renal disease on dialysis SNOMED Code(s): 927099359 Code(s): N18.6 - END STAGE RENAL DISEASE; Z99.2 - DEPENDENCE ON RENAL DIALYSIS Status: Acute Priority: High Current Visit: No (3) Febrile illness, acute SNOMED Code(s): 799897647 Code(s): R50.9 - FEVER, UNSPECIFIED Status: Acute Priority: High Current Visit: No Annotation/Comment:: Suspected peritonitis secondary to peritoneal dialysis (4) Diabetes mellitus type 2 with complications SNOMED Code(s): 26028571, 581666013 Code(s): E11.8 - TYPE 2 DIABETES MELLITUS WITH UNSPECIFIED COMPLICATIONS Status: Chronic Priority: Medium Current Visit: No - Problem List Review Problem List Initiated/Reviewed/Updated: Yes - My Orders Last 24 Hours: My Active Orders 03/03/21 00:01 Oxygen Therapy [RC] PRN Up ad Shani [RC] ASDIRECTED VTE/DVT Education [RC] 08,20 Vital Signs [RC] 00,04,08,12,16,20 Acetaminophen [TylenoL] 650 mg PO Q4H PRN Ondansetron [Zofran ODT] 4 mg PO Q6H PRN 03/03/21 01:07 Acetaminophen/HYDROcodone [[place] 325-5 MG] 1 tab PO TID PRN 03/03/21 Breakfast Regular Diet [DIET] 03/03/21 08:16 Blood Glucose Check, Bedside [RC] QIDACANDBED 03/03/21 08:17 Dextrose 50% in Water 50 ml IVPUSH Q15M PRN Glucagon,Human Recombinant [GlucaGen] 1 mg IM Q15M PRN 03/03/21 12:00 Insulin Lispro [HumaLOG] See Protocol SUBCUT TIDMEALS 03/03/21 13:29 HYDROmorphone [Dilaudid] 0.5 mg IVPUSH Q4H PRN 03/03/21 13:45 Meropenem [Merrem] 1 gm .XX Q24H 03/04/21 05:11 CBC WITH AUTO DIFF [HEME] AM COMPREHENSIVE METABOLIC PN,CMP [CHEM] AM GLYCOSYLATED HEMOGLOBIN,HGBA1C [CHEM] AM LIPASE [CHEM] AM - Plan Plan:: Assessment/Plan: 1. 65-year-old man with end-stage renal disease, currently on peritoneal dialysis 2. Febrile illness with elevated white count with left shift, which in a peritoneal dialysis patient is peritonitis until proven otherwise -He received a dose of levofloxacin in the ED -We will switch him over to meropenem, we will have him instill 1 g nightly with his first dialysate bag. This should have good activity against any peritonitis that is existing. His dialysis fluid has not shown any sign of cloudiness or debris 3. Type 2 diabetes mellitus, uncontrolled, with renal complications -Continue home medications -4 times daily blood sugars -Sliding scale insulin to cover -Maxi reports that he frequently has blood sugars in the 300-500 range 4. Acute on chronic HFpEF, NYHA class I 5. VTE prophylaxis: I will need to consult about VTE prophylaxis for someone with peritoneal dialysis. He is certainly at high risk of VTE
[2021-03-03 18:21] LABS: AMPHETAMINES,URINE NEGATIVE (NEGATIVE); BARBITURATES,URINE NEGATIVE (NEGATIVE); BENZODIAZEPINE,URINE NEGATIVE (NEGATIVE); MDMA (ECSTASY), URINE NEGATIVE (NEGATIVE); METHADONE,URINE NEGATIVE (NEGATIVE); METHAMPHETAMINES,URINE NEGATIVE (NEGATIVE); OPIATES,URINE POSITIVE (NEGATIVE); OXYCODONE,URINE NEGATIVE (NEGATIVE); PHENCYCLIDINE,URINE NEGATIVE (NEGATIVE); TCA,URINE NEGATIVE (NEGATIVE)
[2021-03-04] MEDS: Acetaminophen/HYDROcodone 325-5 MG Tab PO PRN ×2 (01:16→09:33)
[2021-03-04] MEDS: HYDROmorphone 0.5 MG/0.5 ML Syringe IVPUSH PRN ×2 (03:29→08:06)
[2021-03-04 06:34] LABS: ANION GAP 15.4 mEq/L (7-13)
[2021-03-04] MEDS ORDERED: HYDROmorphone 0.5 MG/0.5 ML Syringe IVPUSH ONE (09:09)
[2021-03-04] MEDS ORDERED: Lactated Ringers 1,000 ML IV ONE (09:23)
[2021-03-04] MEDS ORDERED: Levofloxacin/Dextrose 5%-Water 750 MG in Premix Bag 1 BAG IV ONE (09:23)
[2021-03-04] MEDS ORDERED: Ondansetron 4 MG/2 ML SDV IVPUSH PRN ×2 (09:25→11:16)
[2021-03-04] MEDS ORDERED: diphenhydrAMINE 25 MG Tab PO PRN (09:25)
[2021-03-04] MEDS ORDERED: diphenhydrAMINE 50 MG/ML SDV IVPUSH PRN (09:25)
[2021-03-04] MEDS ORDERED: Naloxone 2 MG/2 ML Syringe IVPUSH PRN ×2 (09:25→11:16)
[2021-03-04] MEDS ORDERED: HYDROmorphone/Normal Saline 15 MG/30 ML PCA IV SCH (09:30)
[2021-03-04] MEDS ORDERED: Insulin Lispro 100 Units/ML 3 ML Vial SUBCUT ONE (09:30)
[2021-03-04] MEDS: Insulin Lispro 100 Units/ML 3 ML Vial SUBCUT SCH ×2 (09:35→13:20)
--- NOTE | 2021-03-04 10:49 | CT ---
PROCEDURE INFORMATION: Exam: CT Abdomen And Pelvis Without Contrast Exam date and time: 03/04/2021 9:50 AM Age: 65 years old Clinical indication: Abdominal pain; Generalized; Additional info: Worsening symptoms of peritonitis TECHNIQUE: Imaging protocol: Computed tomography of the abdomen and pelvis without contrast. Radiation optimization: All CT scans at this facility use at least one of these dose optimization techniques: automated exposure control; mA and/or kV adjustment per patient size (includes targeted exams where dose is matched to clinical indication); or iterative reconstruction. COMPARISON: CT Abdomen Pelvis wo Cont 03/02/2021 6:03 PM FINDINGS: Limitations: Evaluation of the solid and vascular structures is somewhat limited by lack of IV contrast. Tubes, catheters and devices: Indwelling peritoneal dialysis catheter is again present with its tip in the pelvis. Small new gas is present within the tubing distally. Lungs: The lung bases again demonstrate coarse interstitial changes. Heart: A small pericardial effusion is again present. Liver: Grossly unremarkable. Gallbladder and bile ducts: Cholecystectomy clips are again present. Pancreas: Grossly unremarkable. Spleen: Grossly unremarkable. Adrenal glands: There is a stable 1.8 cm indeterminate density left adrenal nodule. The right adrenal gland appears grossly unremarkable. Kidneys and ureters: There is no hydronephrosis, and no renal or ureteral calculus is identified. The kidneys are again somewhat atrophic. Stomach and bowel: The unopacified small bowel is not significantly distended to suggest obstruction. The large bowel is grossly unremarkable in appearance. Appendix: The appendix is again mildly prominent in caliber, measuring up to 12 mm and containing fluid. No discrete new periappendiceal inflammatory change is evident. Intraperitoneal space: Small free fluid is again present about the abdomen and pelvis. A few tiny foci of pneumoperitoneum are newly present in the right upper quadrant anteriorly. There is similar mild mesenteric edema. Vasculature: The abdominal aorta is nonaneurysmal. Atherosclerotic vascular calcifications are again present. Lymph nodes: No gross pathologic lymphadenopathy. Urinary bladder: Grossly unremarkable. Reproductive: The prostate is again large, measuring 4.7 x 4.0 cm, and contains small calcifications. Bones/joints: Degenerative changes again involve the spine, sacroiliac joints and hips. Soft tissues: Unremarkable. IMPRESSION: 1. Small free fluid about the abdomen and pelvis, as on 03/02/2021, with a few small new foci of pneumoperitoneum. An indwelling peritoneal dialysis catheter is again present, and there is small new gas within the tubing distally. The pneumoperitoneum may therefore relate to interval flushing or usage of the catheter. Correlate clinically or otherwise consider alternate cause. 2. Persistent mild generalized mesenteric edema, could relate to fluid overload versus inflammation or infection. 3. Appendix again mildly prominent in caliber and containing fluid, without discrete new periappendiceal inflammatory change evident. This could be variant, but correlate clinically. 4. Stable 1.8 cm indeterminate density left adrenal nodule. Non-emergent CT with adrenal washout protocol is recommended. Non-emergent chemical shift MRI (CS-MR) may be considered. (Reference: Phil) 5. Other nonurgent findings stable as above. REFERENCES: Phil TUTTLE, et al. Management of Incidental Adrenal Masses: A White Paper of the ACR Incidental Findings Committee. J Am Lo Radiol. 2017;14(8):9030-8686.
[2021-03-04] MEDS ORDERED: fentaNYL Citrate/PF 1,500 MCG/30 ML PCA Vial IV SCH (11:30)
[2021-03-04] MEDS ORDERED: HYDROmorphone 1 MG/ML Syringe IVPUSH ONE (13:39)
--- NOTE | 2021-03-04 14:01 | PCM.DCSUM1 ---
Discharge Summary - Hospital Course Free Text/Narrative:: Maxi is a 65-year-old man who was admitted 36 hours ago for abdominal pain and elevated white blood count. He is a peritoneal dialysis patient, and recently finished a long-term antibiotic regiment for a septic shoulder. He receives most of his care at [facility] clinics in [place]. Last night, he started having more abdominal pain, and this morning that pain increased significantly. He was also noted to have a blood pressure of 70/50. He received a 1 L fluid bolus of LR and his blood pressure stabilized. White blood count had improved yesterday, but this morning was again up to 17,000, with 86% neutrophils and 7% bands. I consulted hospitalist on-call at [facility] in [place], they recommended transfer to their facility for further evaluation treatment, both by themselves, nephrology, and general surgery. CT scan of the abdomen and pelvis this morning shows signs of peritonitis, as well as a possible appendicitis - Discharge Data Discharge Date: 03/04/21 (Transfer to [facility]) Discharge Disposition: DC/Tfer to Acute Hospital 02 Condition: Serious - Referral to Home Health Primary Care Physician: Ming [facility] - Discharge Diagnosis/Problem(s) (1) CHF (congestive heart failure), NYHA class I SNOMED Code(s): 19902270, 411800693 ICD Code: I50.9 - HEART FAILURE, UNSPECIFIED Status: Acute Current Visit: No Qualifiers: Congestive heart failure type: unspecified congestive heart failure type Qualified Code(s): I50.9 - Heart failure, unspecified (2) End stage renal disease on dialysis SNOMED Code(s): 657582868 ICD Code: N18.6 - END STAGE RENAL DISEASE; Z99.2 - DEPENDENCE ON RENAL DIALYSIS Status: Acute Priority: High Current Visit: No (3) Febrile illness, acute SNOMED Code(s): 793305650 ICD Code: R50.9 - FEVER, UNSPECIFIED Status: Acute Priority: High Current Visit: No Problem Details: Suspected peritonitis secondary to peritoneal dialysis (4) Diabetes mellitus type 2 with complications SNOMED Code(s): 04222017, 775804537 ICD Code: E11.8 - TYPE 2 DIABETES MELLITUS WITH UNSPECIFIED COMPLICATIONS Status: Chronic Priority: Medium Current Visit: No - Discharge Plan *PRESCRIPTION DRUG MONITORING PROGRAM REVIEWED*: Not Applicable *COPY OF PRESCRIPTION DRUG MONITORING REPORT IN PATIENT MELISSA: Not Applicable Home Medications: Home Meds Acetaminophen 650 mg PO Q6HR PRN 11/18/20 [History] Calcium Citrate/Vitamin D3 [Calcium Citrate - Vit D Caplet] 2 tab PO BID 11/18/20 [History] Darbepoetin Sukh [Aranesp] 150 mcg SUBCUT .MONTHLY 11/18/20 [History] Docusate Sodium 100 mg PO BID PRN 11/18/20 [History] Ezetimibe 10 mg PO DAILY 11/18/20 [History] Furosemide 80 mg PO DAILY 11/18/20 [History] Hydrocodone/Acetaminophen [Hydrocodone-Acetamin 5-325 mg] 1 tab PO TID PRN 11/18/20 [History] Insulin Detemir [Levemir Flextouch] 10 unit SQ BID 11/18/20 [History] Loratadine 10 mg PO DAILY 11/18/20 [History] Metoclopramide HCl [Reglan] 10 mg PO BEDTIME PRN 11/18/20 [History] Omeprazole 20 mg PO ACBREAKFAST 11/18/20 [History] Potassium Chloride 10 meq PO DAILY 11/18/20 [History] Sodium Bicarbonate 650 mg PO BID 11/18/20 [History] sevelamer HCL [Sevelamer HCl] 1,600 mg PO TIDMEALS 11/18/20 [History] Gabapentin [Neurontin] 300 mg PO BEDTIME 01/30/21 [History] clonazePAM [Clonazepam] 0.5 mg PO BID PRN 01/30/21 [History] Forms: ED Department Discharge Referrals: Ming Locke [Primary Care Provider] - - Discharge Summary/Plan Comment DC Time >30 min.: No Total # of Minutes for Discharge Time: 5 Discharge Summary/Plan Comment: Plan: Maxi has been accepted in transfer to [facility] for further evaluation and treatment, by Dr. Panda, hospitalist rn corrections. Upon his departure, he was in stable condition, with stable vitals. - General Info Date of Service: 03/04/21 Admission Dx/Problem (Free Text: Admission Diagnosis/Problem Admission Diagnosis/Problem Abdominal pain Subjective Update: See above summary - Patient Data Vitals - Most Recent: Last Vital Signs Temp 98.1 F 03/04/21 11:17 Pulse 106 H 03/04/21 11:17 Resp 20 03/04/21 11:17 BP 120/71 03/04/21 11:17 Pulse Ox 94 L 03/04/21 11:17 Weight - Most Recent: 207 lb 8 oz I&O - Last 24 hours: Intake & Output 03/03/21 03/04/21 03/04/21 22:59 06:59 14:59 Intake Total 100 880 Output Total 60 150 Balance 40 730 Lab Results - Last 24 hrs: Laboratory Results - last 24 hr 03/03/21 03/03/21 03/03/21 Range/Units 17:01 17:49 17:49 WBC (5.0-10.0) 10^3/uL RBC (4.6-6.2) 10^6/uL Hgb (14.0-18.0) g/dL Hct (40.0-54.0) % MCV (80-100) fL MCH (27.0-34.0) pg MCHC (33.0-35.0) g/dL Plt Count (150-450) 10^3/uL Neut % (Auto) (42.2-75.2) % Lymph % (Auto) (20.5-50.1) % [place] % (Auto) (2-8) % Eos % (Auto) (1.0-3.0) % Baso % (Auto) (0.0-1.0) % Add Manual Diff Neutrophils % (Manual) (42-75) % Band Neutrophils % % Lymphocytes % (Manual) (20-50) % Monocytes % (Manual) (2-8) % Sodium (136-145) mmol/L Potassium (3.5-5.1) mmol/L Chloride (98-107) mmol/L Carbon Dioxide (21-32) mmol/L Anion Gap (7-13) mEq/L BUN (7-18) mg/dL Creatinine (0.70-1.30) mg/dL Est Cr Clr Drug Dosing mL/min Estimated GFR (MDRD) BUN/Creatinine Ratio (No establ ref range) Glucose (70-99) mg/dL POC Glucose 170 H (70-99) mg/dL Hemoglobin A1c (<5.7) % Lactic Acid (0.4-2.0) mmol/L Calcium (8.5-10.1) mg/dL Total Bilirubin (0.2-1.0) mg/dL AST (15-37) U/L ALT (16-63) U/L Alkaline Phosphatase (46-116) U/L C-Reactive Protein (0.0-0.9) mg/dL Total Protein (6.4-8.2) g/dL Albumin (3.4-5.0) g/dL Globulin Albumin/Globulin Ratio Lipase (73-393) U/L Urine Color Dark yellow (YELLOW) Urine Appearance Cloudy (CLEAR) Urine pH 5.0 (5.0-9.0) Ur Specific [place] 1.025 (1.005-1.030) Urine Protein 100 H (NEGATIVE) Urine Glucose (UA) 250 H (NEGATIVE) Urine Ketones Trace H (NEGATIVE) Urine Occult Blood Trace-intact H (NEGATIVE) Urine Nitrite Negative (NEGATIVE) Urine Bilirubin Small H (NEGATIVE) Urine Urobilinogen 0.2 (0.2-1.0) mg/dL Ur Leukocyte Esterase Small H (NEGATIVE) Urine RBC Not seen (0-5) /HPF Urine WBC 30-40 H (0-5/HPF) /HPF Ur Epithelial Cells Moderate H (NOT SEEN) /HPF Amorphous Sediment Many (NOT SEEN) /HPF Urine Bacteria Many H (0-FEW/HPF) /HPF Urine Opiates Screen Positive H (NEGATIVE) Ur Oxycodone Screen Negative (NEGATIVE) Urine Methadone Screen Negative (NEGATIVE) Ur Barbiturates Screen Negative (NEGATIVE) U Tricyclic Antidepress Negative (NEGATIVE) Ur Phencyclidine Scrn Negative (NEGATIVE) Ur Amphetamine Screen Negative (NEGATIVE) U Methamphetamines Scrn Negative (NEGATIVE) Urine MDMA Screen Negative (NEGATIVE) U Benzodiazepines Scrn Negative (NEGATIVE) Urine Cocaine Screen Negative (NEGATIVE) U Marijuana (THC) Screen Negative (NEGATIVE) 03/03/21 03/04/21 03/04/21 Range/Units 22:15 05:30 05:30 WBC 16.7 H (5.0-10.0) 10^3/uL RBC 3.96 L (4.6-6.2) 10^6/uL Hgb 9.9 L (14.0-18.0) g/dL Hct 31.6 L (40.0-54.0) % MCV 79.8 L (80-100) fL MCH 25.0 L (27.0-34.0) pg MCHC 31.3 L (33.0-35.0) g/dL Plt Count 324 (150-450) 10^3/uL Neut % (Auto) 87.0 H (42.2-75.2) % Lymph % (Auto) 7.9 L (20.5-50.1) % [place] % (Auto) 4.7 (2-8) % Eos % (Auto) 0.2 L (1.0-3.0) % Baso % (Auto) 0.2 (0.0-1.0) % Add Manual Diff Yes Neutrophils % (Manual) 83 H (42-75) % Band Neutrophils % 7 % Lymphocytes % (Manual) 6 L (20-50) % Monocytes % (Manual) 4 (2-8) % Sodium 129 L (136-145) mmol/L Potassium 3.4 L (3.5-5.1) mmol/L Chloride 89 L (98-107) mmol/L Carbon Dioxide 28 (21-32) mmol/L Anion Gap 15.4 H (7-13) mEq/L BUN 54 H (7-18) mg/dL Creatinine 6.60 H* (0.70-1.30) mg/dL Est Cr Clr Drug Dosing 11.52 mL/min Estimated GFR (MDRD) 8 BUN/Creatinine Ratio 8.2 (No establ ref range) Glucose 498 H* (70-99) mg/dL POC Glucose 289 H (70-99) mg/dL Hemoglobin A1c (<5.7) % Lactic Acid (0.4-2.0) mmol/L Calcium 8.7 (8.5-10.1) mg/dL Total Bilirubin 1.1 H (0.2-1.0) mg/dL AST 44 H (15-37) U/L ALT 33 (16-63) U/L Alkaline Phosphatase 228 H (46-116) U/L C-Reactive Protein (0.0-0.9) mg/dL Total Protein 7.0 (6.4-8.2) g/dL Albumin 1.7 L (3.4-5.0) g/dL Globulin 5.3 Albumin/Globulin Ratio 0.32 Lipase 71 L (73-393) U/L Urine Color (YELLOW) Urine Appearance (CLEAR) Urine pH (5.0-9.0) Ur Specific [place] (1.005-1.030) Urine Protein (NEGATIVE) Urine Glucose (UA) (NEGATIVE) Urine Ketones (NEGATIVE) Urine Occult Blood (NEGATIVE) Urine Nitrite (NEGATIVE) Urine Bilirubin (NEGATIVE) Urine Urobilinogen (0.2-1.0) mg/dL Ur Leukocyte Esterase (NEGATIVE) Urine RBC (0-5) /HPF Urine WBC (0-5/HPF) /HPF Ur Epithelial Cells (NOT SEEN) /HPF Amorphous Sediment (NOT SEEN) /HPF Urine Bacteria (0-FEW/HPF) /HPF Urine Opiates Screen (NEGATIVE) Ur Oxycodone Screen (NEGATIVE) Urine Methadone Screen (NEGATIVE) Ur Barbiturates Screen (NEGATIVE) U Tricyclic Antidepress (NEGATIVE) Ur Phencyclidine Scrn (NEGATIVE) Ur Amphetamine Screen (NEGATIVE) U Methamphetamines Scrn (NEGATIVE) Urine MDMA Screen (NEGATIVE) U Benzodiazepines Scrn (NEGATIVE) Urine Cocaine Screen (NEGATIVE) U Marijuana (THC) Screen (NEGATIVE) 03/04/21 03/04/21 03/04/21 Range/Units 05:30 08:04 11:05 WBC 16.9 H (5.0-10.0) 10^3/uL RBC 4.15 L (4.6-6.2) 10^6/uL Hgb 10.5 L (14.0-18.0) g/dL Hct 32.5 L (40.0-54.0) % MCV 78.3 L (80-100) fL MCH 25.3 L (27.0-34.0) pg MCHC 32.3 L (33.0-35.0) g/dL Plt Count 343 (150-450) 10^3/uL Neut % (Auto) 92.7 H (42.2-75.2) % Lymph % (Auto) 3.4 L (20.5-50.1) % [place] % (Auto) 3.5 (2-8) % Eos % (Auto) 0.2 L (1.0-3.0) % Baso % (Auto) 0.2 (0.0-1.0) % Add Manual Diff Neutrophils % (Manual) (42-75) % Band Neutrophils % % Lymphocytes % (Manual) (20-50) % Monocytes % (Manual) (2-8) % Sodium (136-145) mmol/L Potassium (3.5-5.1) mmol/L Chloride (98-107) mmol/L Carbon Dioxide (21-32) mmol/L Anion Gap (7-13) mEq/L BUN (7-18) mg/dL Creatinine (0.70-1.30) mg/dL Est Cr Clr Drug Dosing mL/min Estimated GFR (MDRD) BUN/Creatinine Ratio (No establ ref range) Glucose (70-99) mg/dL POC Glucose 421 H* (70-99) mg/dL Hemoglobin A1c 10.0 H (<5.7) % Lactic Acid (0.4-2.0) mmol/L Calcium (8.5-10.1) mg/dL Total Bilirubin (0.2-1.0) mg/dL AST (15-37) U/L ALT (16-63) U/L Alkaline Phosphatase (46-116) U/L C-Reactive Protein (0.0-0.9) mg/dL Total Protein (6.4-8.2) g/dL Albumin (3.4-5.0) g/dL Globulin Albumin/Globulin Ratio Lipase (73-393) U/L Urine Color (YELLOW) Urine Appearance (CLEAR) Urine pH (5.0-9.0) Ur Specific [place] (1.005-1.030) Urine Protein (NEGATIVE) Urine Glucose (UA) (NEGATIVE) Urine Ketones (NEGATIVE) Urine Occult Blood (NEGATIVE) Urine Nitrite (NEGATIVE) Urine Bilirubin (NEGATIVE) Urine Urobilinogen (0.2-1.0) mg/dL Ur Leukocyte Esterase (NEGATIVE) Urine RBC (0-5) /HPF Urine WBC (0-5/HPF) /HPF Ur Epithelial Cells (NOT SEEN) /HPF Amorphous Sediment (NOT SEEN) /HPF Urine Bacteria (0-FEW/HPF) /HPF Urine Opiates Screen (NEGATIVE) Ur Oxycodone Screen (NEGATIVE) Urine Methadone Screen (NEGATIVE) Ur Barbiturates Screen (NEGATIVE) U Tricyclic Antidepress (NEGATIVE) Ur Phencyclidine Scrn (NEGATIVE) Ur Amphetamine Screen (NEGATIVE) U Methamphetamines Scrn (NEGATIVE) Urine MDMA Screen (NEGATIVE) U Benzodiazepines Scrn (NEGATIVE) Urine Cocaine Screen (NEGATIVE) U Marijuana (THC) Screen (NEGATIVE) 03/04/21 03/04/21 03/04/21 Range/Units 11:05 11:05 11:21 WBC (5.0-10.0) 10^3/uL RBC (4.6-6.2) 10^6/uL Hgb (14.0-18.0) g/dL Hct (40.0-54.0) % MCV (80-100) fL MCH (27.0-34.0) pg MCHC (33.0-35.0) g/dL Plt Count (150-450) 10^3/uL Neut % (Auto) (42.2-75.2) % Lymph % (Auto) (20.5-50.1) % [place] % (Auto) (2-8) % Eos % (Auto) (1.0-3.0) % Baso % (Auto) (0.0-1.0) % Add Manual Diff Neutrophils % (Manual) (42-75) % Band Neutrophils % % Lymphocytes % (Manual) (20-50) % Monocytes % (Manual) (2-8) % Sodium (136-145) mmol/L Potassium (3.5-5.1) mmol/L Chloride (98-107) mmol/L Carbon Dioxide (21-32) mmol/L Anion Gap (7-13) mEq/L BUN (7-18) mg/dL Creatinine (0.70-1.30) mg/dL Est Cr Clr Drug Dosing mL/min Estimated GFR (MDRD) BUN/Creatinine Ratio (No establ ref range) Glucose (70-99) mg/dL POC Glucose 338 H (70-99) mg/dL Hemoglobin A1c (<5.7) % Lactic Acid 1.4 (0.4-2.0) mmol/L Calcium (8.5-10.1) mg/dL Total Bilirubin (0.2-1.0) mg/dL AST (15-37) U/L ALT (16-63) U/L Alkaline Phosphatase (46-116) U/L C-Reactive Protein 33.9 H (0.0-0.9) mg/dL Total Protein (6.4-8.2) g/dL Albumin (3.4-5.0) g/dL Globulin Albumin/Globulin Ratio Lipase (73-393) U/L Urine Color (YELLOW) Urine Appearance (CLEAR) Urine pH (5.0-9.0) Ur Specific [place] (1.005-1.030) Urine Protein (NEGATIVE) Urine Glucose (UA) (NEGATIVE) Urine Ketones (NEGATIVE) Urine Occult Blood (NEGATIVE) Urine Nitrite (NEGATIVE) Urine Bilirubin (NEGATIVE) Urine Urobilinogen (0.2-1.0) mg/dL Ur Leukocyte Esterase (NEGATIVE) Urine RBC (0-5) /HPF Urine WBC (0-5/HPF) /HPF Ur Epithelial Cells (NOT SEEN) /HPF Amorphous Sediment (NOT SEEN) /HPF Urine Bacteria (0-FEW/HPF) /HPF Urine Opiates Screen (NEGATIVE) Ur Oxycodone Screen (NEGATIVE) Urine Methadone Screen (NEGATIVE) Ur Barbiturates Screen (NEGATIVE) U Tricyclic Antidepress (NEGATIVE) Ur Phencyclidine Scrn (NEGATIVE) Ur Amphetamine Screen (NEGATIVE) U Methamphetamines Scrn (NEGATIVE) Urine MDMA Screen (NEGATIVE) U Benzodiazepines Scrn (NEGATIVE) Urine Cocaine Screen (NEGATIVE) U Marijuana (THC) Screen (NEGATIVE) PATTY Results - Last 24 hrs: Microbiology 03/02/21 17:34 Aerobic Blood Culture - Preliminary Blood - Arm, Left NO GROWTH AFTER 1 DAY Anaerobic Blood Culture - Preliminary NO GROWTH AFTER 1 DAY Med Orders - Current: Current Medications Acetaminophen (Acetaminophen 325 Mg Tab) 650 mg PO Q4H PRN PRN Reason: Pain (Mild 1-3)/fever Last Admin: 03/03/21 12:40 Dose: 650 mg Documented by: Hydrocodone Bitart/Acetaminophen (Acetaminophen/Hydrocodone 325-5 Mg Tab) 1 tab PO TID PRN PRN Reason: Pain (severe 7-10) Last Admin: 03/04/21 09:33 Dose: 1 tab Documented by: Dextrose/Water (50% Dextrose In Water 50 Ml Syringe) 50 ml IVPUSH Q15M PRN PRN Reason: Hypoglycemia Fentanyl Citrate (Fentanyl Citrate/Pf 1,500 Mcg/30 Ml Section Hand Vial) 0 mcg IV ASDIRECTED [facility]; Protocol Glucagon (Glucagon,Human Recombinant 1 Mg Vial) 1 mg IM Q15M PRN PRN Reason: Hypoglycemia Hydromorphone HCl (Hydromorphone 0.5 Mg/0.5 Ml Syringe) 0.5 mg IVPUSH Q4H PRN PRN Reason: Pain Last Admin: 03/04/21 08:06 Dose: 0.5 mg Documented by: Insulin Human Lispro (Insulin Lispro 100 Units/Ml 3 Ml Vial) 0 unit SUBCUT TIDMEALS [facility]; Protocol Last Admin: 03/04/21 13:20 Dose: 8 units Documented by: Meropenem (Meropenem 1 Gm Sdv) 1 gm .XX Q24H [facility] Last Admin: 03/03/21 20:35 Dose: 1 gm Documented by: Naloxone HCl (Naloxone 2 Mg/2 Ml Syringe) 0.04 mg IVPUSH Q3M PRN PRN Reason: Respiratory Depression Naloxone HCl (Naloxone 2 Mg/2 Ml Syringe) 0.04 mg IVPUSH Q3M PRN PRN Reason: Respiratory Depression Ondansetron HCl (Ondansetron 4 Mg/2 Ml Sdv) 4 mg IVPUSH Q6H PRN PRN Reason: Nausea/Vomiting Ondansetron HCl (Ondansetron 4 Mg/2 Ml Sdv) 4 mg IVPUSH Q6H PRN PRN Reason: Nausea/Vomiting Discontinued Medications Diphenhydramine HCl (Diphenhydramine 50 Mg/Ml Sdv) 25 mg IVPUSH Q6H PRN PRN Reason: Itching Diphenhydramine HCl (Diphenhydramine 25 Mg Tab) 25 mg PO Q6H PRN PRN Reason: Itching Fentanyl (Fentanyl 100 Mcg/2 Ml Sdv) 50 mcg IVPUSH ONETIME ONE; Protocol Stop: 03/02/21 19:49 Last Admin: 03/02/21 19:54 Dose: 50 mcg Documented by: Hydromorphone HCl (Hydromorphone 0.5 Mg/0.5 Ml Syringe) 0.5 mg IVPUSH ONETIME ONE Stop: 03/04/21 09:10 Last Admin: 03/04/21 11:24 Dose: 0.5 mg Documented by: Hydromorphone HCl (Hydromorphone/Normal Saline 15 Mg/30 Ml Section Hand) 0 mg IV ASDIRECTED [facility]; Protocol Hydromorphone HCl (Hydromorphone 1 Mg/Ml Syringe) 1 mg IVPUSH ONETIME ONE Stop: 03/04/21 13:40 Last Admin: 03/04/21 13:50 Dose: 1 mg Documented by: Piperacillin Sod/Tazobactam (Sod 2.25 gm/ Sodium Chloride) 50 mls @ 100 mls/hr IV ONETIME ONE Stop: 03/02/21 19:11 Last Admin: 03/02/21 19:09 Dose: 100 mls/hr Documented by: Lactated Ringer's (Ringers, Lactated) 1,000 mls @ 999 mls/hr IV .BOLUS ONE Stop: 03/04/21 10:23 Last Admin: 03/04/21 11:31 Dose: 999 mls/hr Documented by: Levofloxacin/Dextrose 750 mg/ (Premix) 150 mls @ 100 mls/hr IV ONETIME ONE Stop: 03/04/21 10:52 Last Admin: 03/04/21 11:32 Dose: 100 mls/hr Documented by: Insulin Glargine (Insulin Glarg,Human.Rec.Analog 100 Unit/Ml) 10 unit SUBCUT ONETIME ONE Stop: 03/03/21 08:18 Last Admin: 03/03/21 09:04 Dose: 10 units Documented by: Insulin Human Lispro (Insulin Lispro 100 Units/Ml 3 Ml Vial) 14 unit SUBCUT ONETIME ONE Stop: 03/03/21 09:16 Last Admin: 03/03/21 09:42 Dose: 14 units Documented by: Insulin Human Lispro (Insulin Lispro 100 Units/Ml 3 Ml Vial) 14 unit SUBCUT ONETIME ONE Stop: 03/04/21 09:31 Last Admin: 03/04/21 11:38 Dose: Not Given Documented by: Meropenem (Meropenem 1 Gm Sdv) 1 gm .XX Q24H [facility] Last Admin: 03/03/21 19:08 Dose: Not Given Documented by: Ondansetron HCl (Ondansetron 4 Mg Tab.Dis) 4 mg PO Q6H PRN PRN Reason: nausea, able to take PO - Exam Physical Findings Comments:: General: Maxi is a 65-year-old man in no acute distress. He is obviously in quite a bit of pain at this time Oropharynx is clear, mucous membranes are moist Heart: Regular rate and rhythm, 1 out of 6 to 2 out of 6 systolic murmur best heard over the left sternal border Lungs: Clear to auscultation throughout Abdomen: Soft, he is tender in all 4 quadrants, but worst in the lower right quadrant. Hypoactive bowel sounds are heard in all 4 quadrants
[2021-03-04 14:14] VITALS: BP 100/60; PULSE 68
== END 2021-03-04 13:56 | DRG 371 ==
LOC: DL.ED 14:00 → DL.MS 20:07
PROVIDERS: ADMIT Family Medicine; ATTEND Family Medicine
PROC: 3E02340 Introduction of Influenza Vaccine into Muscle, Percutaneous Approach (ICD-10-PCS; 2021-03-02)
PROC: XW033N5 Introduction of Meropenem-vaborbactam Anti-infective into Peripheral Vein, Percutaneous Approach, New Technology Group 5 (ICD-10-PCS; principal; 2021-03-03)
DX: K65.9 Peritonitis, unspecified (principal); N18.6 End stage renal disease; I50.33 Acute on chronic diastolic (congestive) heart failure; I13.0 Hypertensive heart and chronic kidney disease with heart failure and stage 1 through stage 4 chronic kidney disease, or unspecified chronic kidney disease; K37 Unspecified appendicitis; E11.22 Type 2 diabetes mellitus with diabetic chronic kidney disease; H54.7 Unspecified visual loss; E78.00 Pure hypercholesterolemia, unspecified; K59.09 Other constipation; K21.9 Gastro-esophageal reflux disease without esophagitis; N40.0 Benign prostatic hyperplasia without lower urinary tract symptoms; E11.42 Type 2 diabetes mellitus with diabetic polyneuropathy; F41.9 Anxiety disorder, unspecified; Z87.01 Personal history of pneumonia (recurrent); I25.10 Atherosclerotic heart disease of native coronary artery without angina pectoris; I25.2 Old myocardial infarction; Z95.5 Presence of coronary angioplasty implant and graft; Z79.4 Long term (current) use of insulin; Z79.899 Other long term (current) drug therapy; Z23 Encounter for immunization
CPT/HCPCS: 36415; 74176; 80053; 80305-QW; 81001; 82947; 83036; 83605; 83690; 83735; 85025; 86140; 87040; 87086; A9270-GY; J1170; J1815-GY; J1956; J2185; J2543; J3010; J7120; U0002

== ENCOUNTER 2021-08-21 13:20 | Emergency (ER) | payer MEDICARE, OTHER ==
[2021-08-21 13:25] LABS: O2 DELIVERY DEVICE NASAL CANNULA
[2021-08-21 13:31] LABS: BICARBONATE,VENOUS 27 mmol/l (19-25); O2 SATURATION VENOUS 90.8 % (60-80); PCO2 VENOUS 44 mmHg (41-51); PO2 VENOUS 60 mmHg (35-42)
[2021-08-21 13:37] LABS: ANION GAP 13.5 mEq/L (7-13); CHLORIDE,CL 101 mmol/L (98-107); SODIUM,NA 138 mmol/L (136-145)
[2021-08-21 13:40] LABS: O2 FLOW RATE 3
[2021-08-21] MEDS ORDERED: Sodium Chloride 0.9% 10 ML Syringe FLUSH PRN (14:42)
[2021-08-21] MEDS ORDERED: Magnesium Sulfate/Water 2 GM in Premix Bag 1 BAG IV ONE (14:42)
[2021-08-21] MEDS ORDERED: Calcium Chloride 10% 1 GM/10 ML Syringe IVPUSH ONE (14:43)
[2021-08-21 15:05] VITALS: BP 160/63; PULSE 69
== END 2021-08-21 17:05 | disposition home or self-care (01) ==
LOC: DL.ED 13:20
DX: E83.51 Hypocalcemia (principal); E83.42 Hypomagnesemia; R55 Syncope and collapse; I13.0 Hypertensive heart and chronic kidney disease with heart failure and stage 1 through stage 4 chronic kidney disease, or unspecified chronic kidney disease; N18.9 Chronic kidney disease, unspecified; I50.9 Heart failure, unspecified; Z99.2 Dependence on renal dialysis; E11.9 Type 2 diabetes mellitus without complications; Z79.4 Long term (current) use of insulin; Z79.899 Other long term (current) drug therapy
CPT/HCPCS: 36415; 80048; 82803; 82947; 83735; 85025; 85379; 93005; 96365; 96366; 96375; 99284-25; J3475; J3490

== ENCOUNTER 2022-04-01 07:05 | Emergency (ER) | payer MEDICARE, OTHER ==
[2022-04-01 07:26] VITALS: BP 169/75; PULSE 88
[2022-04-01 08:04] LABS: ANION GAP 14.5 mEq/L (7-13)
[2022-04-01 08:14] LABS: CORONAVIRUS COVID-19 NAA POSITIVE (NEGATIVE)
[2022-04-01] MEDS ORDERED: Acetaminophen 500 MG Tab PO ONE (08:47)
== END 2022-04-01 09:07 | disposition home or self-care (01) ==
LOC: DL.ED 07:05
DX: U07.1 COVID-19 (principal); I25.10 Atherosclerotic heart disease of native coronary artery without angina pectoris; I11.0 Hypertensive heart disease with heart failure; I50.9 Heart failure, unspecified; E78.00 Pure hypercholesterolemia, unspecified; E11.9 Type 2 diabetes mellitus without complications; E66.9 Obesity, unspecified; Z68.34 Body mass index [BMI] 34.0-34.9, adult; Z79.899 Other long term (current) drug therapy; Z79.82 Long term (current) use of aspirin; Z79.4 Long term (current) use of insulin; Z79.01 Long term (current) use of anticoagulants; Z90.49 Acquired absence of other specified parts of digestive tract
CPT/HCPCS: 0240U; 36415; 80053; 83605; 83735; 83880; 84484; 85025; 87040; 93005; 99284; A9270

== ENCOUNTER 2023-04-10 07:46 | Emergency (ER) | payer MEDICARE, OTHER ==
[2023-04-10 08:15] VITALS: BP 130/54; PULSE 66
[2023-04-10 08:33] LABS: BASOPHILS PERCENT AUTO 0.5 % (0.0-1.0); EOSINOPHILS PERCENT AUTO 2.4 % (1.0-3.0); HEMATOCRIT 32.8 % (40.0-54.0); HEMOGLOBIN 10.6 g/dL (14.0-18.0); LYMPHOCYTES PERCENT AUTO 26.2 % (20.5-50.1); MEAN CORPUSCULAR HEMOGLOBIN 27.6 pg (27.0-34.0); MEAN CORPUSCULAR HGB CONC 32.3 g/dL (33.0-35.0); MEAN CORPUSCULAR VOLUME 85.4 fL (80-100); MONOCYTES PERCENT AUTO 7.7 % (2-8); NEUTROPHILS PERCENT AUTO 63.2 % (42.2-75.2); PLATELET COUNT,PLT 143 10^3/uL (150-450); RED BLOOD CELL COUNT 3.84 10^6/uL (4.6-6.2); WHITE BLOOD CELL COUNT,WBC 5.7 10^3/uL (5.0-10.0)
[2023-04-10 08:52] LABS: ALBUMIN 3.4 g/dL (3.4-5.0); ANION GAP 11.3 mEq/L (7-13); BUN/CREATININE RATIO 5.6 (No establ ref range); CALCIUM 8.6 mg/dL (8.5-10.1); CREATININE 5.58 mg/dL (0.70-1.30); EST CRCL DRUG DOSING (CG) 13.68 mL/min; MAGNESIUM 1.7 mg/dL (1.8-2.4); PHOSPHORUS 3.9 mg/dL (2.6-4.7); POTASSIUM,K 4.3 mmol/L (3.5-5.1); PROTEIN TOTAL,TP 6.9 g/dL (6.4-8.2)
[2023-04-10 08:59] LABS: CORONAVIRUS COVID-19 NAA NEGATIVE (NEGATIVE); INFLUENZA A NAA NEGATIVE (NEGATIVE); INFLUENZA B NAA NEGATIVE (NEGATIVE); RESPIRATORY SYNCYTIAL VIR NAA NEGATIVE (NEGATIVE)
== END 2023-04-10 09:16 | disposition home or self-care (01) ==
LOC: DL.ED 07:46
DX: I95.9 Hypotension, unspecified (principal); I25.10 Atherosclerotic heart disease of native coronary artery without angina pectoris; I25.2 Old myocardial infarction; I13.2 Hypertensive heart and chronic kidney disease with heart failure and with stage 5 chronic kidney disease, or end stage renal disease; I50.9 Heart failure, unspecified; N18.6 End stage renal disease; E11.22 Type 2 diabetes mellitus with diabetic chronic kidney disease; E11.40 Type 2 diabetes mellitus with diabetic neuropathy, unspecified; E66.9 Obesity, unspecified; K21.9 Gastro-esophageal reflux disease without esophagitis; E78.00 Pure hypercholesterolemia, unspecified; Z99.2 Dependence on renal dialysis; Z20.822 Contact with and (suspected) exposure to COVID-19; Z86.16 Personal history of COVID-19; Z95.5 Presence of coronary angioplasty implant and graft; Z79.4 Long term (current) use of insulin; Z79.01 Long term (current) use of anticoagulants; Z79.82 Long term (current) use of aspirin; Z79.899 Other long term (current) drug therapy
CPT/HCPCS: 0241U; 36415; 71045; 80053; 83735; 83880; 84100; 84484; 85025; 93005; 93010; 99284; 99285

== ENCOUNTER 2023-06-22 20:38 | Emergency (ER) | payer MEDICARE, OTHER ==
[2023-06-22] MEDS: Sodium Chloride 0.9% 10 ML Syringe FLUSH PRN (21:02)
[2023-06-22 21:07] LABS: BASOPHILS PERCENT AUTO 0.5 % (0.0-1.0); EOSINOPHILS PERCENT AUTO 2.4 % (1.0-3.0); HEMATOCRIT 31.4 % (40.0-54.0); HEMOGLOBIN 9.7 g/dL (14.0-18.0); LYMPHOCYTES PERCENT AUTO 19.4 % (20.5-50.1); MEAN CORPUSCULAR HEMOGLOBIN 27.2 pg (27.0-34.0); MEAN CORPUSCULAR HGB CONC 30.9 g/dL (33.0-35.0); NEUTROPHILS PERCENT AUTO 71.7 % (42.2-75.2); PLATELET COUNT,PLT 184 10^3/uL (150-450); RED BLOOD CELL COUNT 3.57 10^6/uL (4.6-6.2); WHITE BLOOD CELL COUNT,WBC 8.4 10^3/uL (5.0-10.0)
[2023-06-22 21:08] VITALS: BP 123/49; PULSE 83
[2023-06-22] MEDS: Albuterol 0.083% 2.5 MG/3 ML Neb Soln NEB ONE (21:13)
[2023-06-22 21:20] LABS: A/G RATIO 1.1; ALANINE AMINOTRANSFERASE,ALT 14 U/L (16-63); ALBUMIN 3.7 g/dL (3.4-5.0); ALKALINE PHOSPHATASE 156 U/L (46-116); ANION GAP 16.9 mEq/L (7-13); ASPARTATE AMNIOTRANSFERASE,AST 15 U/L (15-37); BILIRUBIN TOTAL 0.6 mg/dL (0.2-1.0); BLOOD UREA NITROGEN,BUN 73 mg/dL (7-18); BUN/CREATININE RATIO 8.4 (No establ ref range); CALCIUM 7.3 mg/dL (8.5-10.1); CARBON DIOXIDE,CO2 25 mmol/L (21-32); CHLORIDE,CL 105 mmol/L (98-107); EST CRCL DRUG DOSING (CG) 8.67 mL/min; GLUCOSE RANDOM 130 mg/dL (70-99); POTASSIUM,K 4.9 mmol/L (3.5-5.1); PROTEIN TOTAL,TP 7.2 g/dL (6.4-8.2); SODIUM,NA 142 mmol/L (136-145)
[2023-06-22 21:21] LABS: C-REACTIVE PROTEIN < 0.50 ng/dL (<=0.50); CREATININE 8.69 mg/dL (0.70-1.30); ESTIMATED GFR 6 mL/min (>=60)
[2023-06-22 21:38] LABS: CORONAVIRUS COVID-19 NAA NEGATIVE (NEGATIVE); INFLUENZA A NAA NEGATIVE (NEGATIVE); INFLUENZA B NAA NEGATIVE (NEGATIVE)
== END 2023-06-22 21:54 | disposition home or self-care (01) ==
LOC: DL.ED 20:38
DX: J81.0 Acute pulmonary edema (principal); N18.9 Chronic kidney disease, unspecified; E87.70 Fluid overload, unspecified; I13.0 Hypertensive heart and chronic kidney disease with heart failure and stage 1 through stage 4 chronic kidney disease, or unspecified chronic kidney disease; I50.9 Heart failure, unspecified; I25.2 Old myocardial infarction; I25.10 Atherosclerotic heart disease of native coronary artery without angina pectoris; K21.9 Gastro-esophageal reflux disease without esophagitis; E66.9 Obesity, unspecified; E11.9 Type 2 diabetes mellitus without complications; Z79.82 Long term (current) use of aspirin; Z79.899 Other long term (current) drug therapy; Z86.16 Personal history of COVID-19; Z90.49 Acquired absence of other specified parts of digestive tract; Z68.36 Body mass index [BMI] 36.0-36.9, adult
CPT/HCPCS: 0240U; 36415; 71045; 80053; 84100; 84484; 85025; 86140; 93005; 93010; 99284; J3490; J7613-GY

== ENCOUNTER 2023-06-23 20:27 | Emergency (ER) | payer MEDICARE, OTHER ==
[2023-06-23] MEDS: Sodium Chloride 0.9% 10 ML Syringe FLUSH PRN (21:02)
[2023-06-23 21:07] LABS: BASOPHILS PERCENT AUTO 0.4 % (0.0-1.0); EOSINOPHILS PERCENT AUTO 1.7 % (1.0-3.0); HEMOGLOBIN 10.7 g/dL (14.0-18.0); LYMPHOCYTES PERCENT AUTO 13.8 % (20.5-50.1); MEAN CORPUSCULAR HEMOGLOBIN 28.1 pg (27.0-34.0); MEAN CORPUSCULAR HGB CONC 32.4 g/dL (33.0-35.0); MEAN CORPUSCULAR VOLUME 86.6 fL (80-100); MONOCYTES PERCENT AUTO 9.1 % (2-8); PLATELET COUNT,PLT 161 10^3/uL (150-450); RED BLOOD CELL COUNT 3.81 10^6/uL (4.6-6.2); WHITE BLOOD CELL COUNT,WBC 7.8 10^3/uL (5.0-10.0)
[2023-06-23 21:08] VITALS: BP 147/79; PULSE 88
[2023-06-23] MEDS: Aspirin 81 MG Tab.Chew PO ONE (21:10)
[2023-06-23] MEDS: Acetaminophen 500 MG Tab PO ONE (21:12)
[2023-06-23 21:23] LABS: A/G RATIO 0.9; ALBUMIN 3.6 g/dL (3.4-5.0); ANION GAP 12.5 mEq/L (7-13); BILIRUBIN TOTAL 1.3 mg/dL (0.2-1.0); BUN/CREATININE RATIO 7.2 (No establ ref range); C-REACTIVE PROTEIN 2.91 ng/dL (<=0.50); CALCIUM 7.7 mg/dL (8.5-10.1); CREATININE 5.57 mg/dL (0.70-1.30); EST CRCL DRUG DOSING (CG) 13.52 mL/min; MAGNESIUM 1.7 mg/dL (1.8-2.4); POTASSIUM,K 4.5 mmol/L (3.5-5.1); PROTEIN TOTAL,TP 7.4 g/dL (6.4-8.2)
[2023-06-23 21:50] LABS: CORONAVIRUS COVID-19 NAA NEGATIVE (NEGATIVE); INFLUENZA A NAA NEGATIVE (NEGATIVE); INFLUENZA B NAA NEGATIVE (NEGATIVE)
[2023-06-23] MEDS: cefTRIAXone 2 GM Vial IVPUSH ONE (22:22)
== END 2023-06-23 23:12 | disposition home or self-care (01) ==
LOC: DL.ED 20:27
DX: J18.9 Pneumonia, unspecified organism (principal); I11.0 Hypertensive heart disease with heart failure; I50.9 Heart failure, unspecified; I25.10 Atherosclerotic heart disease of native coronary artery without angina pectoris; I25.2 Old myocardial infarction; K21.9 Gastro-esophageal reflux disease without esophagitis; E78.00 Pure hypercholesterolemia, unspecified; E66.9 Obesity, unspecified; E11.9 Type 2 diabetes mellitus without complications; Z68.35 Body mass index [BMI] 35.0-35.9, adult; Z79.82 Long term (current) use of aspirin; Z79.4 Long term (current) use of insulin; Z79.899 Other long term (current) drug therapy; Z86.16 Personal history of COVID-19; Z90.49 Acquired absence of other specified parts of digestive tract
CPT/HCPCS: 0240U; 36415; 71046; 80053; 83605; 83735; 83880; 84484; 85025; 86140; 87040; 87077; 87186; 93005; 93010; 96374; 99284; 99285; A9270; J0696; J3490

== ENCOUNTER 2024-07-03 11:55 | Emergency (ER) | payer MEDICARE, OTHER ==
[2024-07-03] MEDS: LORazepam 2 MG/ML SDV IVPUSH ONE (12:11)
[2024-07-03 12:12] LABS: BASOPHILS PERCENT AUTO 0.1 % (0.0-1.0); HEMATOCRIT 42.6 % (40.0-54.0); HEMOGLOBIN 13.4 g/dL (14.0-18.0); LYMPHOCYTES PERCENT AUTO 12.1 % (20.5-50.1); MEAN CORPUSCULAR HEMOGLOBIN 29.1 pg (27.0-34.0); MEAN CORPUSCULAR HGB CONC 31.5 g/dL (33.0-35.0); MEAN CORPUSCULAR VOLUME 92.4 fL (80-100); MONOCYTES PERCENT AUTO 3.7 % (2-8); NEUTROPHILS PERCENT AUTO 83.1 % (42.2-75.2); PLATELET COUNT,PLT 140 10^3/uL (150-450); RED BLOOD CELL COUNT 4.61 10^6/uL (4.6-6.2); WHITE BLOOD CELL COUNT,WBC 13.4 10^3/uL (5.0-10.0)
[2024-07-03] MEDS: Ondansetron 4 MG/2 ML SDV IVPUSH ONE (12:23)
[2024-07-03] MEDS: LORazepam 2 MG/ML SDV ONE (12:25)
[2024-07-03 12:31] LABS: B-TYPE NATRIURETIC PEPTIDE,BNP 115 pg/ml (0-100)
[2024-07-03 12:34] LABS: A/G RATIO 1.1; ALANINE AMINOTRANSFERASE,ALT 28 U/L (16-63); ALBUMIN 4.1 g/dL (3.4-5.0); ALKALINE PHOSPHATASE 112 U/L (46-116); ANION GAP 21.8 mEq/L (7-13); ASPARTATE AMNIOTRANSFERASE,AST 41 U/L (15-37); BILIRUBIN DIRECT 0.4 mg/dL (0.0-0.2); BILIRUBIN INDIRECT 0.9; BILIRUBIN TOTAL 1.3 mg/dL (0.2-1.0); BLOOD UREA NITROGEN,BUN 26 mg/dL (7-18); CALCIUM 9.1 mg/dL (8.5-10.1); CARBON DIOXIDE,CO2 25 mmol/L (21-32); CHLORIDE,CL 100 mmol/L (98-107); CREATININE 5.78 mg/dL (0.70-1.30); GLUCOSE RANDOM 162 mg/dL (70-99); POTASSIUM,K 4.8 mmol/L (3.5-5.1); SODIUM,NA 142 mmol/L (136-145)
[2024-07-03 12:36] LABS: ESTIMATED GFR 10 mL/min (>=60)
[2024-07-03 12:52] VITALS: BP 165/112; PULSE 128
[2024-07-03 13:51] LABS: LACTIC ACID 7.2 mmol/L (0.4-2.0)
[2024-07-03] MEDS: cefTRIAXone 1 GM Vial IVPUSH ONE (14:00)
[2024-07-03] MEDS ORDERED: Sodium Chloride 0.9% 250 ML IV SCH (14:00)
[2024-07-03] MEDS: Azithromycin 500 MG in Sodium Chloride 0.9% 250 ML IV ONE (14:06)
[2024-07-03] MEDS: Acetaminophen 325 MG Tab PO ONE (14:44)
== END 2024-07-03 15:04 ==
LOC: DL.ED 11:55
DX: N17.9 Acute kidney failure, unspecified (principal); F41.9 Anxiety disorder, unspecified; J18.9 Pneumonia, unspecified organism; R68.89 Other general symptoms and signs; I11.0 Hypertensive heart disease with heart failure; I50.9 Heart failure, unspecified; I25.10 Atherosclerotic heart disease of native coronary artery without angina pectoris; I25.2 Old myocardial infarction; Z95.5 Presence of coronary angioplasty implant and graft; E11.40 Type 2 diabetes mellitus with diabetic neuropathy, unspecified; Z79.899 Other long term (current) drug therapy; Z79.4 Long term (current) use of insulin; Z79.01 Long term (current) use of anticoagulants; Z79.82 Long term (current) use of aspirin; Z86.16 Personal history of COVID-19
CPT/HCPCS: 36415; 71045; 80048; 80076; 83605; 83880; 84484; 85025; 87040; 87428; 93005; 96365; 96375; 99285; A9270; J0456; J0696; J2060; J2405; J7050; 93010; 99284

== ENCOUNTER 2025-01-25 19:49 | Emergency (ER) | payer MEDICARE, OTHER ==
[2025-01-25] MEDS: Ketorolac 30 MG/ML SDV IVPUSH ONE (20:00)
[2025-01-25] MEDS: fentaNYL 100 MCG/2 ML SDV IVPUSH ONE ×2 (20:00→23:28)
[2025-01-25 20:08] LABS: BASOPHILS PERCENT AUTO 0.3 % (0.0-1.0); EOSINOPHILS PERCENT AUTO 1.0 % (1.0-3.0); LYMPHOCYTES PERCENT AUTO 16.4 % (20.5-50.1); MONOCYTES PERCENT AUTO 6.4 % (2-8); NEUTROPHILS PERCENT AUTO 75.9 % (42.2-75.2); PLATELET COUNT,PLT 148 10^3/uL (150-450); RED BLOOD CELL COUNT 3.29 10^6/uL (4.6-6.2); WHITE BLOOD CELL COUNT,WBC 7.1 10^3/uL (5.0-10.0)
[2025-01-25 20:22] LABS: INR 1.0 (0.9-1.2); PTT,PARTIAL THROMBOPLSTIN TIME 25.3 SEC (22.0-34.0)
[2025-01-25 20:24] LABS: LACTIC ACID 2.9 mmol/L (0.4-2.0)
[2025-01-25 20:26] LABS: A/G RATIO 1.1; ALANINE AMINOTRANSFERASE,ALT 21 U/L (16-63); ASPARTATE AMNIOTRANSFERASE,AST 19 U/L (15-37); BILIRUBIN TOTAL 0.7 mg/dL (0.2-1.0); BLOOD UREA NITROGEN,BUN 46 mg/dL (7-18); CARBON DIOXIDE,CO2 28 mmol/L (21-32); CHLORIDE,CL 97 mmol/L (98-107); CREATININE 7.63 mg/dL (0.70-1.30); GLUCOSE RANDOM 200 mg/dL (70-99); POTASSIUM,K 4.3 mmol/L (3.5-5.1); PROTEIN TOTAL,TP 6.8 g/dL (6.4-8.2); SODIUM,NA 135 mmol/L (136-145)
[2025-01-25 20:30] LABS: ESTIMATED GFR 7 mL/min (>=60); ETHANOL BLOOD MEDICAL < 3 mg/dL (0)
[2025-01-25 20:31] LABS: O2 DELIVERY DEVICE ROOM AIR
[2025-01-25 20:35] LABS: BASE EXCESS VENOUS 2.7 mmol/l ((-2)-(+3)); BICARBONATE,VENOUS 26 mmol/l (19-25); O2 SATURATION VENOUS 83.6 % (60-80); PCO2 VENOUS 36 mmHg (41-51); PH,VENOUS 7.47 (7.31-7.41); PO2 VENOUS 61 mmHg (35-42)
[2025-01-25] MEDS: Iopamidol 755 Mg/ML 100 ML Bottle IVPUSH ONE (20:39)
[2025-01-25] MEDS: Ketorolac 30 MG/ML SDV ONE (22:35)
[2025-01-25] MEDS: fentaNYL 100 MCG/2 ML SDV ONE (22:35)
== END 2025-01-25 23:50 ==
LOC: DL.ED 19:49
DX: S06.0X1A Concussion with loss of consciousness of 30 minutes or less, initial encounter (principal); S87.81XA Crushing injury of right lower leg, initial encounter; I25.10 Atherosclerotic heart disease of native coronary artery without angina pectoris; I25.2 Old myocardial infarction; I11.0 Hypertensive heart disease with heart failure; I50.9 Heart failure, unspecified; K21.9 Gastro-esophageal reflux disease without esophagitis; E11.42 Type 2 diabetes mellitus with diabetic polyneuropathy; Z86.16 Personal history of COVID-19; Z95.5 Presence of coronary angioplasty implant and graft; Z90.49 Acquired absence of other specified parts of digestive tract; Z79.4 Long term (current) use of insulin; Z79.01 Long term (current) use of anticoagulants; Z79.82 Long term (current) use of aspirin; Z79.899 Other long term (current) drug therapy; W01.198A Fall on same level from slipping, tripping and stumbling with subsequent striking against other object, initial encounter
CPT/HCPCS: 36415; 70450; 71045; 71260; 72125; 72170; 73590; 73600; 74177; 80053; 80307; 82803; 83605; 83735; 84484; 85025; 85610; 85730; 86850; 86900; 86901; 96374; 96375; 96376; 99285; J1885; J3010; Q9967; 99284